=== PATIENT | male | born 1950 | race Caucasian/White ===

== ENCOUNTER 2016-08-16 09:15 | Inpatient (IN) | payer MEDICARE, OTHER ==
[~2016-08-16] VITALS: Ht 185.4 cm; Wt 92.2 kg
[2016-08-16] VITALS (7 sets, daily range): BP systolic 153–226; BP diastolic 72–91; PULSE 60–74; RESP 14–24; TEMP 97.5–98.1; O2SAT 93–97
[~2016-08-16 09:15] MED LIST: BACT800T5 PO; CLON0.1T PO; COLA100C3 PO; FERR65TA PO; FURO1TAB62 PO; HYDR-3583 PO; ISOS10TA3 PO; LABE200T2 PO; LANTUS2P SQ; LINA290C PO; LORA-474 PO; MIRA33504 PO; MULT1TAB84 PO; MYCO500 PO; NIFE1TAB85 PO; NOVOLOGP2 SQ; PRED5TAB PO; PREG25 PO; SODI650T PO; TACR1CAP PO; TRIMIX
--- NOTE | 2016-08-16 11:06 | PD ---
HPI Chief Complaint: Respiratory Symptoms Time Seen by Provider: 10:20 Travel History International Travel<30 days: No Contact w/Intl Traveler<30days: No Traveled to known affect area: No PFSH Past Medical History Hx Anticoagulant Therapy: No Arthritis: No Asthma: No Autoimmune Disease: No Blood Disorders: No Anxiety: Yes Depression: No Heart Rhythm Problems: No Cancer: No Cardiac Catheterization: Yes Cardiovascular Problems: Yes (CHF) High Cholesterol: No Chemotherapy: No Chest Pain: No Congestive Heart Failure: Yes (fluid overload) COPD: Yes Cerebrovascular Accident: No Diabetes: Yes Dialysis: Yes (M-W-F) Diminished Hearing: Yes ([place]) Endocrine: Yes Gastrointestinal Disorders: Yes (GERD, ) GERD: No Genitourinary: No Headaches: Yes Hepatitis: Yes (C CLEARED ) Hiatal Hernia: No Hypertension: Yes Immune Disorder: No Kidney Stones: No Musculoskeletal: Yes (ARTHRITIS, BACK PAIN) Neurologic: Yes (NEUROPATHY FEET, HANDS) Psychiatric: No (ANXIETY) Reproductive: No Respiratory: No Immunizations Current: Yes Migraines: No Radiation Therapy: No Renal Failure: Yes (kidney renal rejection ) Seizures: No Sickle Cell Disease: No Sleep Apnea: No Thyroid Disease: No Ulcer: No Tetanus Vaccination: < 5 Years Influenza Vaccination: Yes Past Surgical History Abdominal Surgery: No AICD: No Arteriovenous Shunt: Yes (L AV FISTULA) Body Medical Devices: RIGHT URETERAL STENT Cardiac Surgery: Yes (BILAT CAROTIDS) Ear Surgery: No Endocrine Surgery: No Eye Surgery: Yes Genitourinary Surgery: Yes (RIGHT RENAL TRANSPLANT, (R) NEPHROS./ URETERAL STENTS (MULTI)) Gynecologic Surgery: No Insulin Pump: No Joint Replacement: No Oral Surgery: No Pacemaker: No Thoracic Surgery: No Other Surgery: Yes (bilat cea right kidney july 2014) Social History Alcohol Use: No Tobacco Use: No Substance Use: No Allergies-Medications (Allergen,Severity, Reaction): Coded Allergies: No Known Allergies (Unverified , 08/16/16) Reported Meds & Prescriptions Reported Meds & Active Scripts Active Bactrim DS (Sulfamethoxazole-Trimethoprim) 800-160 Mg Tab 1 Tab PO BID Reported Novolog Inj (Insulin Aspart) 1,000 Unit/10 Ml Vial 0 SQ DIRECTED Sliding Scale as directed. Lantus Inj (Insulin Glargine) 1,000 Unit/10 Ml Vial 22 Units SQ HS Hydrocodone-Acetaminophen 10-325 mg Tab 1 Tab PO TID PRN Ativan (Lorazepam) 1 Mg Tab 3 Mg PO HS Lyrica (Pregabalin) 25 Mg Cap 25 Mg PO TID Miralax Powder (Polyethylene Glycol 3350 Powder) 17 Gm Powd 17 Gm PO DAILY Mix and dissolve one measuring cap-ful (17 grams) in water or juice. Linzess (Linaclotide) 290 Mcg Cap 290 Mcg PO DAILY PRN Colace (Docusate Sodium) 100 Mg Cap 100 Mg PO BID Lasix (Furosemide) 20 Mg Tab 20 Mg PO BID Procardia XL (Nifedipine) 30 Mg Tab 30 Mg PO HS Clonidine (Clonidine HCl) 0.1 Mg Tab 0.1 Mg PO DAILY Labetalol (Labetalol HCl) 200 Mg Tab 200 Mg PO BID Feosol (Ferrous Sulfate) 65 Mg Tab 45 Mg PO DAILY Multivitamin Adults (Multiple Vitamins W/ Minerals) 1 Tab 1 Tab PO DAILY Prednisone 5 Mg Tab 5 Mg PO DAILY Cellcept (Mycophenolate Mofetil) 500 Mg Tab 500 Mg PO BID Tacrolimus 1 Mg Cap 3 Mg PO Q12H Sodium Bicarbonate 650 Mg Tab 650 Mg PO BIDPC Isosorbide Mononitrate 10 Mg Tab 30 Mg PO DAILY Take 2 doses 7 hours apart. [Trimix] DIRECTED PRN Data Data Last Documented VS Vital Signs Date Time Temp Pulse Resp B/P Pulse Ox O2 Delivery O2 Flow Rate FiO2 08/16/16 10:11 16 97 Nasal Cannula 2 08/16/16 10:11 60 153/72 08/16/16 09:19 97.6 Binta Lou MD Aug 16, 2016 11:06
[2016-08-16] MEDS ORDERED: FUROSEMIDE 40 MG/4 ML VIAL IV PUSH ONE (11:30)
[2016-08-16 11:34] LABS: AUTOMATED NEUTROPHIL # 7.3 TH/MM3 (1.8-7.7); BASOPHIL % 0.2 % (0.0-2.0); EOSINOPHIL % 0.5 % (0.0-4.0); HEMATOCRIT 39.7 % (39.0-51.0); HEMO FLAGS DIFF FINAL; LYMPH % 7.3 % (9.0-44.0); LYMPHOCYTE # 0.6 TH/MM3 (1.0-4.8); MEAN CELL VOLUME 88.6 FL (80.0-100.0); MEAN CORPUSCULAR HEMOGLOBIN 28.6 PG (27.0-34.0); MEAN CORPUSCULAR HGB CONC 32.2 % (32.0-36.0); PLATELET COUNT 142 TH/MM3 (150-450); RED BLOOD COUNT 4.48 MIL/MM3 (4.50-5.90); WHITE BLOOD COUNT 8.6 TH/MM3 (4.0-11.0)
--- NOTE | 2016-08-16 11:34 | PD ---
HPI Chief Complaint: Respiratory Symptoms Time Seen by Provider: 11:28 Travel History International Travel<30 days: No Contact w/Intl Traveler<30days: No Traveled to known affect area: No History of Present Illness HPI 66-year-old male that presents to the ED for evaluation of shortness of breath and weight gain. Patient has a history of CHF, kidney transplant in [address] Henry for nephrology as well as Dr. Cabrera for cardiology. Per patient for the past 3-4 weeks she's been having more increased shortness of breath with exertion. Per patient he also has orthopnea and he feels that he is gaining weight. Per patient he checked his weight daily. He actually brings me a sheet where he has daily weights which show at least an increase of 5 kg in the past 3-4 days. Patient states that he's been compliant with his medications and cease even been using extra doses of Lasix to help with his symptoms but they do not seem to be helping. Patient came here because the shortness of breath became more severe today and he is having some chest discomfort as well that he's had for 3 days. Per patient he actually see Dr. Cabrera yesterday and he wanted to do a stress test on his heart next week. I asked the patient what he said about the weight gain in the CHF and he stated that apparently he prefers Dr. Hernandez to take care of the medications as patient does have kidney transplant. Patient states the chest pain it's worse with deep breaths. Patient denies any recent travel. Denies any other medical problems at this time. Per patient he does have swelling in his legs and some congestion and dry cough but per patient this is normal for one he gets fluid overloaded. Patient states that his pain in his chest is 6 out of 10. PFSH Past Medical History Hx Anticoagulant Therapy: No Arthritis: No Asthma: No Autoimmune Disease: No Blood Disorders: No Anxiety: Yes Depression: No Heart Rhythm Problems: No Cancer: No Cardiac Catheterization: Yes Cardiovascular Problems: Yes (CHF) High Cholesterol: No Chemotherapy: No Chest Pain: No Congestive Heart Failure: Yes (fluid overload) COPD: Yes Cerebrovascular Accident: No Diabetes: Yes Dialysis: Yes (M-W-F) Diminished Hearing: [place]) Endocrine: Yes Gastrointestinal Disorders: Yes (GERD, ) GERD: No Genitourinary: No Headaches: Yes Hepatitis: Yes (C CLEARED ) Hiatal Hernia: No Hypertension: Yes Immune Disorder: No Kidney Stones: No Musculoskeletal: Yes (ARTHRITIS, BACK PAIN) Neurologic: Yes (NEUROPATHY FEET, HANDS) Psychiatric: No (ANXIETY) Reproductive: No Respiratory: No Immunizations Current: Yes Migraines: No Radiation Therapy: No Renal Failure: Yes (kidney renal rejection ) Seizures: No Sickle Cell Disease: No Sleep Apnea: No Thyroid Disease: No Ulcer: No Tetanus Vaccination: < 5 Years Influenza Vaccination: Yes Past Surgical History Abdominal Surgery: No AICD: No Arteriovenous Shunt: Yes (L AV FISTULA) Body Medical Devices: RIGHT URETERAL STENT Cardiac Surgery: Yes (BILAT CAROTIDS) Ear Surgery: No Endocrine Surgery: No Eye Surgery: Yes Genitourinary Surgery: Yes (RIGHT RENAL TRANSPLANT, (R) NEPHROS./ URETERAL STENTS (MULTI)) Gynecologic Surgery: No Insulin Pump: No Joint Replacement: No Oral Surgery: No Pacemaker: No Thoracic Surgery: No Other Surgery: Yes (bilat cea right kidney july 2014) Social History Alcohol Use: No Tobacco Use: No Substance Use: No Allergies-Medications (Allergen,Severity, Reaction): Coded Allergies: No Known Allergies (Unverified , 08/16/16) Reported Meds & Prescriptions Reported Meds & Active Scripts Active Bactrim DS (Sulfamethoxazole-Trimethoprim) 800-160 Mg Tab 1 Tab PO BID Reported Novolog Inj (Insulin Aspart) 1,000 Unit/10 Ml Vial 0 SQ DIRECTED Sliding Scale as directed. Lantus Inj (Insulin Glargine) 1,000 Unit/10 Ml Vial 22 Units SQ HS Hydrocodone-Acetaminophen 10-325 mg Tab 1 Tab PO TID PRN Ativan (Lorazepam) 1 Mg Tab 3 Mg PO HS Lyrica (Pregabalin) 25 Mg Cap 25 Mg PO TID Miralax Powder (Polyethylene Glycol 3350 Powder) 17 Gm Powd 17 Gm PO DAILY Mix and dissolve one measuring cap-ful (17 grams) in water or juice. Linzess (Linaclotide) 290 Mcg Cap 290 Mcg PO DAILY PRN Colace (Docusate Sodium) 100 Mg Cap 100 Mg PO BID Lasix (Furosemide) 20 Mg Tab 20 Mg PO BID Procardia XL (Nifedipine) 30 Mg Tab 30 Mg PO HS Clonidine (Clonidine HCl) 0.1 Mg Tab 0.1 Mg PO DAILY Labetalol (Labetalol HCl) 200 Mg Tab 200 Mg PO BID Feosol (Ferrous Sulfate) 65 Mg Tab 45 Mg PO DAILY Multivitamin Adults (Multiple Vitamins W/ Minerals) 1 Tab 1 Tab PO DAILY Prednisone 5 Mg Tab 5 Mg PO DAILY Cellcept (Mycophenolate Mofetil) 500 Mg Tab 500 Mg PO BID Tacrolimus 1 Mg Cap 3 Mg PO Q12H Sodium Bicarbonate 650 Mg Tab 650 Mg PO BIDPC Isosorbide Mononitrate 10 Mg Tab 30 Mg PO DAILY Take 2 doses 7 hours apart. [Trimix] DIRECTED PRN Review of Systems Except as stated in HPI: all other systems reviewed are Neg Physical Exam Narrative GENERAL: SKIN: Warm and dry. HEAD: Atraumatic. Normocephalic. EYES: Pupils equal and round. No scleral icterus. No injection or drainage. ENT: No nasal bleeding or discharge. Mucous membranes pink and moist. Tongue is midline. No uvula deviation. NECK: Trachea midline. No JVD. CARDIOVASCULAR: Regular rate and rhythm. No murmurs, S3, S4. RESPIRATORY: No accessory muscle use. Mild rales heard in the lower lung hess. Breath sounds equal bilaterally. GASTROINTESTINAL: Abdomen soft, nontender, nondistended. Hepatic and splenic margins not palpable. MUSCULOSKELETAL: Extremities without clubbing, cyanosis, or edema. No obvious deformities. Full range of motion of the upper and lower extremities. Patient has 1+ pitting edema on the lower extremities. NEUROLOGICAL: Awake and alert. No obvious cranial nerve deficits. Motor grossly within normal limits. Five out of 5 muscle strength in the arms and legs. Normal speech. PSYCHIATRIC: Appropriate mood and affect; insight and judgment normal. Data Data Last Documented VS Vital Signs Date Time Temp Pulse Resp B/P Pulse Ox O2 Delivery O2 Flow Rate FiO2 08/16/16 11:28 14 97 Nasal Cannula 2 08/16/16 11:27 65 153/72 08/16/16 09:19 97.6 Orders Electrocardiogram (08/16/16 11:14) Complete Blood Count With Diff (08/16/16 11:14) Comprehensive Metabolic Panel (08/16/16 11:14) Ckmb (Isoenzyme) Profile (08/16/16 11:14) Troponin I (08/16/16 11:14) B-Type Natriuretic Peptide (08/16/16 11:14) Prothrombin Time / Inr (Pt) (08/16/16 11:14) Act Partial Throm Time (Ptt) (08/16/16 11:14) Urinalysis - C+S If Indicated (08/16/16 11:14) Magnesium (Mg) (08/16/16 11:14) Chest, Single Ap (08/16/16 11:14) Iv Access Insert/Monitor (08/16/16 11:14) Ecg Monitoring (08/16/16 11:14) Oximetry (08/16/16 11:14) Furosemide Inj (Lasix Inj) (08/16/16 11:30) Albuterol Neb (Albuterol Neb) (08/16/16 11:45) CKMB (08/16/16 11:00) CKMB% (08/16/16 11:00) Diet Diabetic (08/16/16 Lunch) Admit Order (Ed Use Only) (08/16/16 14:16) Labs Laboratory Tests Test 08/16/16 11:00 White Blood Count 8.6 TH/MM3 Red Blood Count 4.48 MIL/MM3 Hemoglobin 12.8 GM/DL Hematocrit 39.7 % Mean Corpuscular Volume 88.6 FL Mean Corpuscular Hemoglobin 28.6 PG Mean Corpuscular Hemoglobin 32.2 % Concent Red Cell Distribution Width 17.0 % Platelet Count 142 TH/MM3 Mean Platelet Volume 9.5 FL Neutrophils (%) (Auto) 84.0 % Lymphocytes (%) (Auto) 7.3 % Monocytes (%) (Auto) 8.0 % Eosinophils (%) (Auto) 0.5 % Basophils (%) (Auto) 0.2 % Neutrophils # (Auto) 7.3 TH/MM3 Lymphocytes # (Auto) 0.6 TH/MM3 Monocytes # (Auto) 0.7 TH/MM3 Eosinophils # (Auto) 0.0 TH/MM3 Basophils # (Auto) 0.0 TH/MM3 CBC Comment DIFF FINAL Differential Comment Prothrombin Time 12.8 SEC Prothromb Time International 1.2 RATIO Ratio Activated Partial 30.1 SEC Thromboplast Time Urine Color YELLOW Urine Turbidity HAZY Urine pH 5.0 Urine Specific [place] 1.016 Urine Protein TRACE mg/dL Urine Glucose (UA) NEG mg/dL Urine Ketones NEG mg/dL Urine Occult Blood NEG Urine Nitrite NEG Urine Bilirubin NEG Urine Urobilinogen LESS THAN 2.0 MG/DL Urine Leukocyte Esterase NEG Urine RBC 1 /hpf Urine WBC 2 /hpf Urine Uric Acid Crystals OCC /hpf Microscopic Urinalysis Comment CULT NOT INDICATED Sodium Level 140 MEQ/L Potassium Level 5.2 MEQ/L Chloride Level 110 MEQ/L Carbon Dioxide Level 20.1 MEQ/L Anion Gap 10 MEQ/L Blood Urea Nitrogen 57 MG/DL Creatinine 2.56 MG/DL Estimat Glomerular Filtration 25 ML/MIN Rate Random Glucose 106 MG/DL Calcium Level 8.6 MG/DL Magnesium Level 2.2 MG/DL Total Bilirubin 1.3 MG/DL Aspartate Amino Transf 18 U/L (AST/SGOT) Alanine Aminotransferase 42 U/L (ALT/SGPT) Alkaline Phosphatase 95 U/L Total Creatine Kinase 138 U/L Creatine Kinase MB 7.8 NG/ML Troponin I 0.02 NG/ML B-Type Natriuretic Peptide 1599 PG/ML Total Protein 6.4 GM/DL Albumin 3.5 GM/DL [facility] Medical Decision Making Medical Screen Exam Complete: Yes Emergency Medical Condition: Yes Medical Record Reviewed: Yes Interpretation(s) CBC & BMP Diagram 08/16/16 11:00 BNP of 1500s troponin and CKMB negative EKG shows sinus rhythm with no sign of acute ischemia or arrythmia. Last Impressions Chest X-Ray 08/16/16 1114 Signed Impressions: Service Date/Time: August 11:58 - CONCLUSION: Changes most characteristic of congestive heart failure with pulmonary edema and small effusions now noted. Robin Reid MD Differential Diagnosis CHF exacerbation versus fluid overload versus pulmonary edema versus kidney transplant versus kidney failure versus ACS Narrative Course 66-year-old male that presents to the ED for evaluation of likely CHF exacerbation. Patient was properly examined and was found to have signs and symptoms very consistent with fluid overload and CHF exacerbation. At this time I recommend labs and imaging. Patient was given breathing treatment as well as diuretic IV. Likely admission. This was discussed with the patient and family members who are both in agreement with plan. Labs and imaging showed signs of acute CHF exacerbation. At this time and do recommend admission secondary to patient's symptoms. Patient is agreement with this plan. Case was discussed with my attending Dr. Lou who agrees to admission and treatment plan. Case was discussed with Dr. Tenorio for [facility] service who agrees to admission. Procedures EKG Prior to Arrival: No Diagnosis Primary Impression: CHF exacerbation Qualified Code: I50.9 - Acute on chronic congestive heart failure, unspecified congestive heart failure type Additional Impression: Pulmonary edema Qualified Code: J81.0 - Acute pulmonary edema Admitting Information Admitting Physician Requests: Observation Mark Blank Aug 16, 2016 11:34
[2016-08-16 11:40] LABS: BLOOD, URINE NEG (NEG); COMMENT (UR) CULT NOT INDICATED; CULTURE IF INDICATED CULT NOT INDICATED; GLUCOSE,URINE NEG (NEG); KETONE, URINE NEG (NEG); NITRITE,URINE NEG (NEG); URIC ACID CRYSTALS, URINE OCC /hpf; URINE COLOR YELLOW (YELLW/STRAW)
[2016-08-16 11:41] LABS: APTT (PATIENT) 30.1 SEC (24.3-30.1); INTERNATIONAL NORMALIZED RATIO 1.2 RATIO; PROTHROMBIN TIME - PATIENT 12.8 SEC (9.8-11.6)
[2016-08-16] MEDS ORDERED: RESP: ALBUTEROL 2.5 MG/3 ML NEB (SCH) INH ONE (11:45)
[2016-08-16 11:55] LABS: ALT (GPT) 42 U/L (12-78); ANION GAP 10 MEQ/L (5-15); AST (GOT) 18 U/L (15-37); BICARBONATE 20.1 MEQ/L (21.0-32.0); BLOOD UREA NITROGEN 57 MG/DL (7-18); CHLORIDE 110 MEQ/L (98-107); GLOMERULAR FILTRATION RATE 25 ML/MIN (>89); MAGNESIUM 2.2 MG/DL (1.5-2.5); POTASSIUM 5.2 MEQ/L (3.5-5.1); SODIUM (NA) 140 MEQ/L (136-145)
[2016-08-16 11:59] LABS: ALKALINE PHOSPHATASE 95 U/L (45-117); CREATINE KINASE 138 U/L (39-308); TOTAL BILIRUBIN ADULT 1.3 MG/DL (0.2-1.0)
[2016-08-16 12:11] LABS: CKMB 7.8 NG/ML (0.5-3.6)
--- NOTE | 2016-08-16 13:02 | RADRPT ---
EXAM DATE/TIME: 08/16/2016 11:58 [facility] COMPARISON: CHEST SINGLE AP, April 08, 2016, 6:29. INDICATIONS : Shortness of breath, chest pain. MEDICAL HISTORY : Hypertension. Chronic obstructive pulmonary disease. Diabetes mellitus type II. Congestive heart failure. SURGICAL HISTORY : None. ENCOUNTER: Initial ACUITY: 3 weeks PAIN SCORE: 3/10 LOCATION: Left chest FINDINGS: A single AP erect portable view of the chest was obtained and again demonstrates perihilar and bibasa l are opacities greatest in the lower lobes. The heart size is at the upper limits of normal. There i s blunting of both costophrenic angles now noted consistent with small effusions left greater than ri ght. Mild average chronic calcifications are present in the aorta. CONCLUSION: Changes most characteristic of congestive heart failure with pulmonary edema and smal l effusions now noted. Robin Reid MD on August 16, 2016 at 12:58 Board Certified Radiologist. This report was verified electronically.
--- NOTE | 2016-08-16 14:50 | EKG ---
Date Performed: 08/16/2016 Time Performed: 10:34:37 PTAGE: 66 years EKG: Sinus rhythm POSSIBLE LEFT ATRIAL ENLARGEMENT BORDERLINE LEFT AXIS DEVIATION ST/T-WAVE ABNORMALITY, CONSIDER LATE RAL ISCHEMIA ABNORMAL ECG NO PREVIOUS TRACING DOCTOR: Elijah Madden Interpretating Date/Time 08/16/2016 14:49:58
[2016-08-16] MEDS ORDERED: TRIMIX IC (15:14)
[2016-08-16] MEDS ORDERED: ISOS30TA3 PO (15:14)
[2016-08-16] MEDS ORDERED: SODIUM CHLORIDE 0.9% FLUSH 10 ML FLUSH IV FLUSH PRN (15:15)
[2016-08-16] MEDS ORDERED: CARB45TA PO ×2 (15:19→15:20)
[2016-08-16] MEDS: HEPARIN SODIUM - SQ 10,000 UNITS/ML VIAL SQ SCH (17:03)
[2016-08-16] MEDS ORDERED: POLYETHYLENE GLYCOL 17 GM PKG PO PRN (17:45)
[2016-08-16] MEDS ORDERED: TACROLIMUS 1 MG CAP PO SCH (18:00)
[2016-08-16] MEDS: SODIUM BICARBONATE 650 MG TAB PO SCH (18:23)
[2016-08-16] MEDS: TACROLIMUS 0.5 MG CAP PO SCH (18:23)
[2016-08-16] MEDS: PREGABALIN 25 MG CAP PO SCH (18:24)
[2016-08-16] MEDS: MYCOPHENOLATE MOFETIL 500 MG TAB PO SCH (18:24)
[2016-08-16] MEDS: cloNIDine HCL 0.1 MG TAB PO SCH (18:24)
[2016-08-16] MEDS: ACETAMINOPHEN/HYDROcodone 325 MG/10 MG TAB PO PRN (18:24)
--- NOTE | 2016-08-16 19:56 | HHI.HP ---
cc: Sujatha Esquivel MD HPI Service [facility] Hospitalists Primary Care Physician Kristen Gordon Admission Diagnosis acute CHF exacerbation Diagnoses: Chief Complaint: SOB Travel History International Travel<30 Days: No Contact w/Intl Traveler <30 Da: No Traveled to Known Affected Are: No History of Present Illness This is a 66-year-old male with past medical history significant for chronic kidney disease status post kidney transplant, congestive heart failure, COPD and as stated below who presents to [facility] for evaluation of shortness of breath and weight gain. The patient had a kidney transplant in [address] Hernandez from nephrology and Dr. Cabrera for cardiology. Patient complains of worsening dyspnea on exertion for the past 3- 4 weeks. Patient also complains of orthopnea and he feels that he is gaining weight. The patient states he checks his weight daily and which shows at least an increase of 5 kg in the past 3-4 days. Patient states he has been compliant with his medications and has being using extra doses of IV Lasix to help with his symptoms but they do not seem to be helping. Patient came to the emergency department because of shortness of breath got worst and he was having some chest discomfort as well as to same he's had for the past 3 days. The patient actually is solid Dr. Jax antonio yesterday and he wanted the patient to have a stress test next week. Patient complain of chest pain in the emergency department however he did not complain of chest pain to me. The patient states he has been having a mild cough, denies fevers or chills, denies dysuria, denies diarrhea. Patient also states that he has had some leg edema and increase in abdominal girth. Patient also states that for the past week she had developed a tender cyst on the left foot, which was drained on 08/10/16 at the [facility] outpatient clinic and pass was obtained from it. Patient was started on oral Bactrim to treat this infection. Review of Systems As per history of present illness, other systems reviewed by me and negative Past Family Social History Past Medical History COPD Congestive heart failure End-stage renal disease status post transplantation Anxiety Hepatitis C Diabetes Dyslipidemia Neuropathy Arthritis Past Surgical History Renal transplant on the right Ureteral stents Left AV fistula Bilateral carotid surgery Reported Medications Reported Meds & Active Scripts Bactrim DS (Sulfamethoxazole-Trimethoprim) 800-160 Mg Tab 1 Tab PO BID Feosol (Iron Carbonyl) 45 Mg Tab 45 Mg PO DAILY Isosorbide Mononitrate ER (Isosorbide Mononitrate) 30 Mg Cherise 30 Mg PO DAILY [Trimix Inj] 1 Injection IC INTERMITTENT PRN Novolog Inj (Insulin Aspart) 1,000 Unit/10 Ml Vial 0 SQ ACHS AND 3AM Sliding Scale as directed. Lantus Inj (Insulin Glargine) 1,000 Unit/10 Ml Vial 22 Units SQ HS Hydrocodone-Acetaminophen 10-325 mg Tab 1 Tab PO TID PRN Ativan (Lorazepam) 1 Mg Tab 3 Mg PO HS Lyrica (Pregabalin) 25 Mg Cap 25 Mg PO TID Miralax Powder (Polyethylene Glycol 3350 Powder) 17 Gm Powd 17 Gm PO DAILY PRN Mix and dissolve one measuring cap-ful (17 grams) in water or juice. Linzess (Linaclotide) 290 Mcg Cap 290 Mcg PO DAILY PRN Colace (Docusate Sodium) 100 Mg Cap 100 Mg PO BID Lasix (Furosemide) 20 Mg Tab 20 Mg PO BID Procardia XL (Nifedipine) 30 Mg Tab 30 Mg PO HS Clonidine (Clonidine HCl) 0.1 Mg Tab 0.1 Mg PO DAILY Labetalol (Labetalol HCl) 200 Mg Tab 200 Mg PO BID Multivitamin Adults (Multiple Vitamins W/ Minerals) 1 Tab 1 Tab PO DAILY Prednisone 5 Mg Tab 5 Mg PO DAILY Cellcept (Mycophenolate Mofetil) 500 Mg Tab 500 Mg PO BID Tacrolimus 1 Mg Cap 3 Mg PO Q12H Sodium Bicarbonate 650 Mg Tab 650 Mg PO BIDPC Allergies: Coded Allergies: No Known Allergies (Unverified , 08/16/16) Active Ordered Medications Current Medications Medications (Trade) Dose Ordered Sig/Rai Route Start Time Stop Time Status Last Admin (NS Flush) 2 ml UNSCH PRN IV FLUSH 08/16/16 15:15 (NS Flush) 2 ml BID IV FLUSH 08/16/16 21:00 (Heparin Inj) 5,000 units Q8H SQ 08/16/16 16:00 08/16/16 17:03 (Catapres) 0.1 mg DAILY PO 08/16/16 17:45 08/16/16 18:24 (Colace) 100 mg BID PO 08/16/16 21:00 ([place] 10-325 Mg) 1 tab TID PRN PO 08/16/16 17:45 08/16/16 18:24 (Levemir Inj) 22 units HS SQ 08/16/16 21:00 (Imdur) 30 mg DAILY PO 08/17/16 09:00 (Trandate) 200 mg BID PO 08/16/16 21:00 (Ativan) 3 mg HS PO 08/16/16 21:00 (Theragran M Tab) 1 tab DAILY PO 08/17/16 09:00 (Cellcept) 500 mg BID@,18 PO 08/16/16 18:00 08/16/16 18:24 (Procardia Xl) 30 mg HS PO 08/16/16 21:00 (Miralax) 17 gm DAILY PRN PO 08/16/16 17:45 (Deltasone) 5 mg DAILY PO 08/17/16 09:00 (Lyrica) 25 mg TID PO 08/16/16 18:00 08/16/16 18:24 (Sodium Bicarbonate) 650 mg BIDPC PO 08/16/16 18:00 08/16/16 18:23 (Ferrous Sulfate) 325 mg DAILY PO 08/17/16 09:00 Patient Own Medication PT OWN MED: Linaclot... DAILY PRN PO 08/16/16 17:45 (Prograf) 3 mg DAILY@,18 PO 08/16/16 18:15 08/16/16 18:23 Family History Positive for diabetes and heart disease. Social History Patient is sent from a smoker. He smoked for 35 years and quit 30 years ago. Denies current alcohol intake. Physical Exam Vital Signs Vital Signs Date Time Temp Pulse Resp B/P Pulse Ox O2 Delivery O2 Flow Rate FiO2 08/16/16 17:00 97.5 66 22 195/90 93 08/16/16 15:33 70 14 98 08/16/16 11:28 14 97 Nasal Cannula 2 08/16/16 11:27 65 14 153/72 95 Nasal Cannula 2 08/16/16 10:11 16 97 Nasal Cannula 2 08/16/16 10:11 60 14 153/72 96 Nasal Cannula 2 08/16/16 09:19 97.6 68 24 180/79 93 Room Air Physical Exam GENERAL: This is a well-nourished, well-developed patient, in no apparent distress. SKIN: No rashes, ecchymoses or lesions. Cool and dry. HEAD: Atraumatic. Normocephalic. No temporal or scalp tenderness. EYES: Pupils equal round and reactive. Extraocular motions intact. No scleral icterus. No injection or drainage. ENT: Nose without bleeding, purulent drainage or septal hematoma. Throat without erythema, tonsillar hypertrophy or exudate. Uvula midline. Airway patent. NECK: Trachea midline. No JVD or lymphadenopathy. Supple, nontender, no meningeal signs. CARDIOVASCULAR: Regular rate and rhythm without murmurs, gallops, or rubs. RESPIRATORY: Clear to auscultation. Breath sounds equal bilaterally. No wheezes , rales, or rhonchi. GASTROINTESTINAL: Abdomen soft, non-tender, nondistended. No hepato-splenomegaly , or palpable masses. No guarding. MUSCULOSKELETAL: Extremities without clubbing, cyanosis, or edema. No joint tenderness, effusion, or edema noted. No calf tenderness. Negative Homans sign bilaterally. NEUROLOGICAL: Awake and alert. Cranial nerves II through XII intact. Motor and sensory grossly within normal limits. Five out of 5 muscle strength in all muscle groups. Normal speech. Laboratory Laboratory Tests Test 08/16/16 08/16/16 11:00 17:13 White Blood Count 8.6 Red Blood Count 4.48 Hemoglobin 12.8 Hematocrit 39.7 Mean Corpuscular Volume 88.6 Mean Corpuscular Hemoglobin 28.6 Mean Corpuscular Hemoglobin 32.2 Concent Red Cell Distribution Width 17.0 Platelet Count 142 Mean Platelet Volume 9.5 Neutrophils (%) (Auto) 84.0 Lymphocytes (%) (Auto) 7.3 Monocytes (%) (Auto) 8.0 Eosinophils (%) (Auto) 0.5 Basophils (%) (Auto) 0.2 Neutrophils # (Auto) 7.3 Lymphocytes # (Auto) 0.6 Monocytes # (Auto) 0.7 Eosinophils # (Auto) 0.0 Basophils # (Auto) 0.0 CBC Comment DIFF FINAL Differential Comment Prothrombin Time 12.8 Prothromb Time International 1.2 Ratio Activated Partial 30.1 Thromboplast Time Urine Color YELLOW Urine Turbidity HAZY Urine pH 5.0 Urine Specific [place] 1.016 Urine Protein TRACE Urine Glucose (UA) NEG Urine Ketones NEG Urine Occult Blood NEG Urine Nitrite NEG Urine Bilirubin NEG Urine Urobilinogen LESS THAN 2.0 Urine Leukocyte Esterase NEG Urine RBC 1 Urine WBC 2 Urine Uric Acid Crystals OCC Microscopic Urinalysis Comment CULT NOT INDICATED Sodium Level 140 Potassium Level 5.2 Chloride Level 110 Carbon Dioxide Level 20.1 Anion Gap 10 Blood Urea Nitrogen 57 Creatinine 2.56 Estimat Glomerular Filtration 25 Rate Random Glucose 106 Calcium Level 8.6 Magnesium Level 2.2 Total Bilirubin 1.3 Aspartate Amino Transf 18 (AST/SGOT) Alanine Aminotransferase 42 (ALT/SGPT) Alkaline Phosphatase 95 Total Creatine Kinase 138 Creatine Kinase MB 7.8 Troponin I 0.02 0.02 B-Type Natriuretic Peptide 1599 Total Protein 6.4 Albumin 3.5 Result Diagram: 08/16/16 1100 08/16/16 1100 Imaging Last Impressions Chest X-Ray 08/16/16 1114 Signed Impressions: Service Date/Time: August 11:58 - CONCLUSION: Changes most characteristic of congestive heart failure with pulmonary edema and small effusions now noted. Robin Reid MD Assessment and Plan Problem List: (1) Acute on chronic diastolic (congestive) heart failure ICD Code: I50.33 Status: Acute Plan: Placed the patient under observation, the patient status post IV Lasix in the emergency department with good response Last echocardiogram obtained on 04/10/16 showed an EF of 55-60% I will consult cardiology - Dr Cabrera I will hold diuretics for now and let nephrology manage them. (2) Hypertension ICD Code: I10 Status: Chronic Plan: Patient seems to have a very elevated and uncontrolled systolic blood pressure with a blood pressure of into the 190s. I will continue home antihypertensive medications which include Levatol, clonidine, nifedipine. Less than clonidine when necessary and add Cardura at bedtime. (3) Hyperkalemia ICD Code: E87.5 Status: Acute Plan: Likely due to decreased potassium excretion. Potassium 5.2, mild hyperkalemia. Continue to monitor BMP. IV diuretics should help lowering the potassium. (4) DM (diabetes mellitus) ICD Code: E11.9 Status: Chronic Plan: Continue home medications which include SSI with insulin NovoLog and long -acting insulin Lantus. Monitor Accu-Cheks. (5) Kidney transplanted ICD Code: Z94.0 Status: Chronic Plan: Continue immunosuppressive therapy with tacrolimus and mycophenolate. (6) ESRD (end stage renal disease) ICD Code: N18.6 Status: Chronic Plan: Status post kidney transplant. As above. (7) Abscess of left foot ICD Code: L02.612 Status: Acute Plan: Patient had a drainage of the left foot abscess on 08/10/16 which wound culture grew MSSA. Continue by mouth Bactrim. I will order podiatry consultation. Assessment and Plan This is a 66-year-old male who presents to [facility] with weight gain and shortness of breath as well as edema. Code Status Full code Discussed Condition With Patient Problem Qualifiers (1) DM (diabetes mellitus): Santos Barillas MD Aug 16, 2016 19:56
[2016-08-16] MEDS: SULFAMETHOXAZOLE-TRIMETHOPRIM DS 800-160 MG TAB PO SCH (20:57)
[2016-08-16] MEDS: LORazepam 1 MG TAB PO SCH (20:58)
[2016-08-16] MEDS: LABETALOL HCL 200 MG TAB PO SCH (20:58)
[2016-08-16] MEDS: DOCUSATE SODIUM 100 MG CAP PO SCH (20:59)
[2016-08-16] MEDS: INSULIN DETEMIR 100 UNITS/ML VIAL SQ SCH (20:59)
[2016-08-16] MEDS ORDERED: NIFEdipine 30 MG SUSTAINED RELEASE TAB PO SCH (21:00)
[2016-08-16] MEDS: SODIUM CHLORIDE 0.9% FLUSH 10 ML FLUSH IV FLUSH SCH (21:02)
[2016-08-16 22:53] LABS: CREATINE KINASE 138 U/L (39-308)
[2016-08-16 23:06] LABS: CKMB 6.4 NG/ML (0.5-3.6)
[2016-08-17] VITALS (8 sets, daily range): BP systolic 159–191; BP diastolic 67–86; PULSE 63–75; RESP 16–22; TEMP 97.1–98.5; O2SAT 90–98
[2016-08-17] MEDS: HEPARIN SODIUM - SQ 10,000 UNITS/ML VIAL SQ SCH ×3 (01:22→15:07)
[2016-08-17] MEDS: ACETAMINOPHEN/HYDROcodone 325 MG/10 MG TAB PO PRN ×2 (02:35→15:07)
--- NOTE | 2016-08-17 04:57 | HHI.PR ---
Blank section for building Notified by RN that patient received 22 units of Levemir 08/16/16 blood glucose this AM 54, patient given juice and glucose came up to 116 Levemir placed on hold and accuchecks ACHS with low dose SSI coverage ordered Noelle Aguilar Aug 17, 2016 04:57
[2016-08-17] MEDS ORDERED: DEXTROSE 50% IN WATER 50 ML VIAL(D50) IV PUSH PRN (05:00)
[2016-08-17] MEDS ORDERED: GLUCAGON 1 MG/ML VIAL OTHER PRN (05:00)
[2016-08-17] MEDS: MYCOPHENOLATE MOFETIL 500 MG TAB PO SCH ×2 (05:57→18:16)
[2016-08-17] MEDS: TACROLIMUS 0.5 MG CAP PO SCH ×2 (05:57→18:16)
[2016-08-17] MEDS: INSULIN ASPART SUPPLEMENTAL SCALE SQ SCH ×4 (06:00→21:00)
[2016-08-17 07:59] LABS: INTERNATIONAL NORMALIZED RATIO 1.1 RATIO; PROTHROMBIN TIME - PATIENT 12.6 SEC (9.8-11.6)
[2016-08-17 08:19] LABS: ALKALINE PHOSPHATASE 92 U/L (45-117); ALT (GPT) 35 U/L (12-78); ANION GAP 7 MEQ/L (5-15); AST (GOT) 13 U/L (15-37); BICARBONATE 22.9 MEQ/L (21.0-32.0); BLOOD UREA NITROGEN 62 MG/DL (7-18); CHLORIDE 107 MEQ/L (98-107); GLOMERULAR FILTRATION RATE 22 ML/MIN (>89); POTASSIUM 4.8 MEQ/L (3.5-5.1); SODIUM (NA) 137 MEQ/L (136-145); TOTAL BILIRUBIN ADULT 1.4 MG/DL (0.2-1.0)
[2016-08-17] MEDS: SODIUM BICARBONATE 650 MG TAB PO SCH ×3 (08:43→18:16)
[2016-08-17] MEDS: DOCUSATE SODIUM 100 MG CAP PO SCH ×2 (08:44→21:16)
[2016-08-17] MEDS: cloNIDine HCL 0.1 MG TAB PO SCH (08:44)
[2016-08-17] MEDS: SULFAMETHOXAZOLE-TRIMETHOPRIM DS 800-160 MG TAB PO SCH ×2 (08:44→21:16)
[2016-08-17] MEDS: FERROUS SULFATE 325 MG (65 MG ELEMENTAL IRON) TAB PO SCH (08:44)
[2016-08-17] MEDS: MULTIVITAMINS/MINERALS THERAPEUTIC TAB PO SCH (08:44)
[2016-08-17] MEDS: ISOSORBIDE MONONITRATE 30 MG TAB PO SCH (08:44)
[2016-08-17] MEDS: PREGABALIN 25 MG CAP PO SCH ×3 (08:44→18:16)
[2016-08-17] MEDS: SODIUM CHLORIDE 0.9% FLUSH 10 ML FLUSH IV FLUSH SCH ×2 (08:45→21:17)
[2016-08-17] MEDS: LABETALOL HCL 200 MG TAB PO SCH ×2 (08:45→21:16)
[2016-08-17] MEDS: predniSONE 5 MG TAB PO SCH (08:52)
[2016-08-17] MEDS ORDERED: FUROSEMIDE 40 MG/4 ML VIAL IV PUSH SCH (09:00)
--- NOTE | 2016-08-17 11:42 | PD.CONS ---
HPI Service Nephrology Consult Requested By Dr. Tenorio Reason for Consult Status post kidney transplant Primary Care Physician Kristen Gordon History of Present Illness Patient is a 66-year-old male with history of diabetes, hypertension, ESRD status post kidney transplant in July 2014, his postoperative course was complicated by obstructive uropathy and he had stents, percutaneous nephrostomy and eventually kidney functions improved, he then had to reactivation of hepatitis C and this was treated with medications, he has developed left foot ulcer and seen a hub lead, this admission he complained of increasing weight gain and shortness of breath and was diuresed his baseline creatinine is around 2.3 range and now is around 2.9. He has been maintained on prednisone 5 mg a day, tacrolimus 3 mg every 12 hourly and CellCept 500 twice a day. Review of Systems Constitutional: COMPLAINS OF: Fatigue Cardiovascular: COMPLAINS OF: Lower Extremity Edema Musculoskeletal: COMPLAINS OF: Joint pain, Stiffness Integumentary: COMPLAINS OF: Rash Neurologic: COMPLAINS OF: Abnormal gait Past Family Social History Allergies: Coded Allergies: No Known Allergies (Unverified , 08/16/16) Past Medical History Diabetes Hypertension ESRD Kidney transplant Hepatitis C Neuropathy GERD Dysphagia Sam's esophagus Past Surgical History Left AV fistula Kidney transplant Bilateral carotid Transplant ureter stent placement and removal Reported Medications Reported Meds & Active Scripts Active Bactrim DS (Sulfamethoxazole-Trimethoprim) 800-160 Mg Tab 1 Tab PO BID Reported Feosol (Iron Carbonyl) 45 Mg Tab 45 Mg PO DAILY Isosorbide Mononitrate ER (Isosorbide Mononitrate) 30 Mg Cherise 30 Mg PO DAILY [Trimix Inj] 1 Injection IC INTERMITTENT PRN Novolog Inj (Insulin Aspart) 1,000 Unit/10 Ml Vial 0 SQ ACHS AND 3AM Sliding Scale as directed. Lantus Inj (Insulin Glargine) 1,000 Unit/10 Ml Vial 22 Units SQ HS Hydrocodone-Acetaminophen 10-325 mg Tab 1 Tab PO TID PRN Ativan (Lorazepam) 1 Mg Tab 3 Mg PO HS Lyrica (Pregabalin) 25 Mg Cap 25 Mg PO TID Miralax Powder (Polyethylene Glycol 3350 Powder) 17 Gm Powd 17 Gm PO DAILY PRN Mix and dissolve one measuring cap-ful (17 grams) in water or juice. Linzess (Linaclotide) 290 Mcg Cap 290 Mcg PO DAILY PRN Colace (Docusate Sodium) 100 Mg Cap 100 Mg PO BID Lasix (Furosemide) 20 Mg Tab 20 Mg PO BID Procardia XL (Nifedipine) 30 Mg Tab 30 Mg PO HS Clonidine (Clonidine HCl) 0.1 Mg Tab 0.1 Mg PO DAILY Labetalol (Labetalol HCl) 200 Mg Tab 200 Mg PO BID Multivitamin Adults (Multiple Vitamins W/ Minerals) 1 Tab 1 Tab PO DAILY Prednisone 5 Mg Tab 5 Mg PO DAILY Cellcept (Mycophenolate Mofetil) 500 Mg Tab 500 Mg PO BID Tacrolimus 1 Mg Cap 3 Mg PO Q12H Sodium Bicarbonate 650 Mg Tab 650 Mg PO BIDPC Active Ordered Medications Current Medications Medications (Trade) Dose Ordered Sig/Rai Route Start Time Stop Time Status Last Admin (NS Flush) 2 ml UNSCH PRN IV FLUSH 08/16/16 15:15 (NS Flush) 2 ml BID IV FLUSH 08/16/16 21:00 08/17/16 08:45 (Heparin Inj) 5,000 units Q8H SQ 08/16/16 16:00 08/17/16 08:44 (Catapres) 0.1 mg DAILY PO 08/16/16 17:45 08/17/16 08:44 (Colace) 100 mg BID PO 08/16/16 21:00 08/17/16 08:44 ([place] 10-325 Mg) 1 tab TID PRN PO 08/16/16 17:45 08/17/16 02:35 (Levemir Inj) 22 units HS SQ 08/16/16 21:00 Hold 08/16/16 20:59 (Imdur) 30 mg DAILY PO 08/17/16 09:00 08/17/16 08:44 (Trandate) 200 mg BID PO 08/16/16 21:00 08/17/16 08:45 (Ativan) 3 mg HS PO 08/16/16 21:00 08/16/16 20:58 (Theragran M Tab) 1 tab DAILY PO 08/17/16 09:00 08/17/16 08:44 (Cellcept) 500 mg BID@06,18 PO 08/16/16 18:00 08/17/16 05:57 (Procardia Xl) 30 mg HS PO 08/16/16 21:00 08/16/16 20:58 (Miralax) 17 gm DAILY PRN PO 08/16/16 17:45 (Deltasone) 5 mg DAILY PO 08/17/16 09:00 08/17/16 08:52 (Lyrica) 25 mg TID PO 08/16/16 18:00 08/17/16 08:44 (Sodium Bicarbonate) 650 mg BIDPC PO 08/16/16 18:00 08/17/16 08:43 (Ferrous Sulfate) 325 mg DAILY PO 08/17/16 09:00 08/17/16 08:44 Patient Own Medication PT OWN MED: Linaclot... DAILY PRN PO 08/16/16 17:45 (Prograf) 3 mg DAILY@06,18 PO 08/16/16 18:15 08/17/16 05:57 (Lasix Inj) 40 mg DAILY IV PUSH 08/17/16 09:00 08/17/16 08:45 (Bactrim Ds 800-160 Mg) 1 tab BID PO 08/16/16 21:00 08/17/16 08:44 (D50w (Vial) Inj) 25 ml UNSCH PRN IV PUSH 08/17/16 05:00 (Glucagon Inj) 1 mg UNSCH PRN OTHER 08/17/16 05:00 Family History Noncontributory Social History Denies smoking Or alcohol use Physical Exam Vital Signs Vital Signs Date Time Temp Pulse Resp B/P Pulse Ox O2 Delivery O2 Flow Rate FiO2 08/17/16 09:49 92 21 08/17/16 08:00 97.4 66 20 186/84 94 08/17/16 04:00 97.1 65 18 179/67 93 08/17/16 00:00 98.2 63 16 178/74 97 08/16/16 20:25 71 08/16/16 20:00 98.1 74 20 195/80 94 226/91 190/83 08/16/16 17:00 97.5 66 22 195/90 93 08/16/16 15:33 70 14 98 Physical Exam GENERAL: Well-nourished, well-developed patient. SKIN: Warm and dry. HEAD: Normocephalic. EYES: No scleral icterus. No injection or drainage. NECK: Supple, trachea midline. No JVD or lymphadenopathy. CARDIOVASCULAR: Regular rate and rhythm without murmurs, gallops, or rubs. RESPIRATORY: Breath sounds equal bilaterally. No accessory muscle use. GASTROINTESTINAL: Abdomen soft, non-tender, nondistended. EXTREMITIES: No cyanosis, or edema. Left foot ulcer NEUROLOGICAL: Awake, alert, and oriented x 3. Non-focal. Laboratory Laboratory Tests Test 08/16/16 08/16/16 08/17/16 17:13 21:17 07:00 Troponin I 0.02 0.02 Total Creatine Kinase 138 Creatine Kinase MB 6.4 Thyroid Stimulating Hormone 5.490 3rd Gen Prothrombin Time 12.6 Prothromb Time International 1.1 Ratio Sodium Level 137 Potassium Level 4.8 Chloride Level 107 Carbon Dioxide Level 22.9 Anion Gap 7 Blood Urea Nitrogen 62 Creatinine 2.91 Estimat Glomerular Filtration 22 Rate Random Glucose 142 Calcium Level 8.6 Total Bilirubin 1.4 Aspartate Amino Transf 13 (AST/SGOT) Alanine Aminotransferase 35 (ALT/SGPT) Alkaline Phosphatase 92 Total Protein 6.3 Albumin 3.5 Result Diagram: 08/16/16 1100 08/17/16 0700 Imaging Last Impressions Chest X-Ray 08/16/16 1114 Signed Impressions: Service Date/Time: August 11:58 - CONCLUSION: Changes most characteristic of congestive heart failure with pulmonary edema and small effusions now noted. Robin Reid MD Assessment and Plan Problem List: (1) Kidney transplant status, cadaveric Plan: Patient received diuretics creatinine is little higher due to observed diuretic effect and would recommend cut back down from diuretics and monitor kidney functions closely Obtain kidney ultrasound he has history of obstructive uropathy in the past (2) Diastolic heart failure Plan: He has received diuretic his blood pressure is not well controlled (3) DM (diabetes mellitus) Plan: Monitor (4) Abscess of left foot Plan: Shirt Sorter following (5) Hypertension Plan: Need to just remain on blood pressure medication Problem Qualifiers (1) DM (diabetes mellitus): Stacy Dias MD Aug 17, 2016 11:42
[2016-08-17] MEDS ORDERED: NIFEdipine 30 MG SUSTAINED RELEASE TAB PO ONE (12:00)
--- NOTE | 2016-08-17 12:26 | MB ---
cc: ISAEL BARRON DATE OF CONSULTATION 08/17/2016 DATE OF 1950 REASON FOR CONSULTATION Congestive heart failure HISTORY OF PRESENT ILLNESS The patient is a very pleasant 66-year-old white male, followed in our office by Dr. Johnny Hall with a history of multiple medical problems including end-stage renal disease status post cadaveric kidney transplant with subsequent ongoing problems with renal insufficiency, history of diabetes, carotid disease, mild to moderate aortic stenosis who was admitted with increasing shortness of breath, weight gain, chest pain. Chest x-ray suggests congestive heart failure. The patient states for the past two to three months, he has had increasing dyspnea with overall minimal to mild exertion. The dyspnea has been gradually worsening in severity. He denies paroxysmal nocturnal dyspnea, orthopnea. Intermittently, he experiences mild dependent edema. For the past few months, he also has noticed occasional left-sided chest discomfort described as pressure, never lasting more than a few minutes. There is usually no associated nausea or diaphoresis and there is no definitive relationship of the chest pain to exertion. He reports compliance with his medications and a no added salt diet. He states he had two or three other episodes of congestive heart failure which were attributed to his ongoing kidney problems. PAST MEDICAL HISTORY 1. Diabetes 2. Hypertension 3. Diabetic retinopathy 4. Hepatitis C 5. Carotid disease status post bilateral carotid endarterectomies 2012. 6. End-stage renal disease status post cadaveric kidney transplant 07/12/2014. He developed hydronephrosis of his transplanted kidney and underwent a number of ureteral stenting procedures initially 09/07/2014, as well as percutaneous nephrostomy placement twice and revision of the ureterovesical anastomosis 01/06/2015. 7. Esophageal strictures status post dilation. 8. Mild to moderate aortic stenosis on a 04/09/2016 echo which demonstrated a mean transvalvular aortic gradient of 23 mmHg. MEDICATIONS His current cardiac medications: 1. Isosorbide mononitrate 30 mg p.o. daily 2. Furosemide 40 mg IV daily. 3. Labetalol 200 mg p.o. b.i.d. 4. Nifedipine XL 30 mg p.o. q.h.s. 5. Clonidine 0.1 mg p.o. daily. 6. Heparin 5000 units subcutaneously q8h ALLERGIES NO KNOWN DRUG ALLERGIES. FAMILY HISTORY There is no significant family history of early myocardial infarction. SOCIAL HISTORY The patient is a former smoker. He denies alcohol abuse. REVIEW OF SYSTEMS As in the history of present illness otherwise negative or noncontributory. He also denies headache, abdominal pain, melena, dyspepsia, bright red blood per rectum, cough, fevers. PHYSICAL EXAM VITAL SIGNS: His blood pressure is 186/84 with a pulse of 66, respirations 20. GENERAL: He is a well-developed, well-nourished white male in no acute distress. HEENT: Jugular venous pressure is seen to the mandible. Carotid pulses are 2+ bilaterally and without bruits. CHEST: Examination of the chest reveals decreased breath sounds at the bases. CARDIAC: On cardiac examination, he has a regular rhythm and rate with a grade 2/6 holosystolic murmur heard at the apex and a grade 1-2/6 systolic ejection murmur at the right upper sternal border. No definite gallop is audible. ABDOMEN: On abdominal examination, he has a soft, nontender abdomen. Bowel sounds are present. There is no definite hepatosplenomegaly. EXTREMITIES: Examination of the extremities reveals no clubbing, cyanosis or edema. Chest x-ray shows perihilar and bibasilar opacities, small bilateral pleural effusions. LABORATORY DATA Includes WBC 8.6, hemoglobin 12.8, platelets 142. Potassium 4.8, BUN 62, creatinine 2.91, troponin 0.02, INR 1.1. EKG shows sinus rhythm, left atrial abnormality, left axis deviation, lateral ST and T-wave abnormalities consider ischemia. IMPRESSION Recurrent congestive heart failure in this 66-year-old white male with a history of multiple medical problems including end-stage renal disease status post cadaveric kidney transplant 2014 with subsequent ongoing problems with renal insufficiency, diabetes, hypertension, carotid disease, mild to moderate aortic stenosis. The precipitating factor for his congestive heart failure may be multifactorial, including his renal insufficiency, uncontrolled hypertension, possibly underlying ischemic heart disease. He does have occasional chest discomforts, most of which are atypical for myocardial ischemia, some of which are suggestive of exertional angina. He does have a number of risk factors for coronary artery disease. Reportedly, echocardiogram four months ago showed normal left ventricular function with ejection fraction of 55-60% and only mild to moderate aortic stenosis. By exam, his aortic stenosis is not severe. RECOMMENDATIONS 1. We will leave the diuretic therapy to the medical team. 2. Continue beta nirav therapy. 3. Recheck a 2-D echo to reassess his left ventricular and valvular function. 4. Check a Lexiscan nuclear stress test to rule out underlying significant myocardial ischemia. MD MICKEY Bella/FELICIA /10:15 AM /12:09 PM [id number]
--- NOTE | 2016-08-17 12:33 | RADRPT ---
EXAM DATE/TIME: 08/17/2016 11:26 [place] COMPARISON: US KIDNEY / TRANSPLANT, December 30, 2014, 10:26. INDICATIONS : Increased labs. MEDICAL HISTORY : Hypertension. Chronic obstructive pulmonary disease. Diabetes mellitus type II. SURGICAL HISTORY : Renal transplant. ENCOUNTER: Subsequent ACUITY: 1 day PAIN SCORE: 3/10 LOCATION: Right lower quadrant MEASUREMENTS: TRANSPLANT KIDNEY: 11.1 x 4.8 x 5.8 cm LOCATION: Right lower quadrant. ARCUATE ARTERIES RESISTIVE INDEX: Upper - 0.66 Mid - 0.68 Lower - 0.62 MAIN RENAL ARTERY VELOCITY: (cm/sec): 56 cm/sec MAIN RENAL VEIN: Patent EXTERNAL ILIAC ARTERY VELOCITY (cm/sec): 122 cm/s * NORMAL DOPPLER FINDINGS Arcuate arteries - RI = 0.6 - 0.8 Renal artery = under 200 cm/sec Renal vein = May be monophasic with continuous flow or demonstrate some pulsatility with cardiac cycl e FINDINGS: TRANSPLANT KIDNEY: Normal cortical thickness and echotexture. No hydronephrosis, stone, or mass. There is a chronic flu id collection abutting the lower pole of the kidney. It has a bilobed shape and measures approximatel y 3.3 x 3.5 x 1.8 cm compared to 4.0 x 5.1 x 2.1 cm on the prior study. It contains a few internal se ptations. CONCLUSION: 1. Normal ultrasound appearance of the right lower quadrant renal transplant with normal vascular ass essment. 2. Chronic fluid collection at the lower pole of the transplant kidney measuring up to 3.5 cm. It has slightly decreased in size since the prior study. Given the appearance and chronicity this most like ly represents a lymphocele. Derrek Byrd MD on August 17, 2016 at 12:28 Board Certified Radiologist. This report was verified electronically.
--- NOTE | 2016-08-17 14:10 | PD.POD.CON ---
Patient Intake Chief Complaint Possible abscess third interspace left foot Consult Requested by Dr. Tenorio Reason for Consult Evaluation and treatment of interspace Primary Care Physician Kristen Gordon History of Present Illness Patient is a 66-year-old male who is seen another gas prover in [place] for a swallowing in the third and fourth toes of the left foot. He had multiple cortisone injections in the area did not get better. Some pus was drained from the area. He was referred to the wound center and was seen Dr. Esquivel who did an aspirate of the area which grew out staph. Patient had shortness of breath and fluid retention and was admitted to the hospital and I was consulted to see the patient. Patient has a history of renal transplant. Coded Allergies: No Known Allergies (Unverified , 08/16/16) Preferred Language to Discuss: Indonesian Barriers to Learning: None Teaching Method: Discussion Vital Signs Date Time Temp Pulse Resp B/P Pulse Ox O2 Delivery O2 Flow Rate FiO2 08/17/16 12:00 98.5 63 22 159/69 90 08/17/16 09:49 92 21 08/17/16 08:00 66 08/17/16 08:00 97.4 66 20 186/84 94 08/17/16 04:00 97.1 65 18 179/67 93 08/17/16 00:00 98.2 63 16 178/74 97 08/16/16 20:25 71 08/16/16 20:00 98.1 74 20 195/80 94 226/91 190/83 08/16/16 17:00 97.5 66 22 195/90 93 08/16/16 15:33 70 14 98 Pain scale used: 0-10 numeric scale Pain score: 2 Medications Current Medications Furosemide (Lasix Inj) 40 mg ONCE ONCE IV PUSH Last administered on 08/16/16 11:30; Start 08/16/16 at 11:30; Stop 08/16/16 at 11:31; Status DC Albuterol Sulfate (Albuterol Neb) 2.5 mg ONCE ONCE INH Last administered on 11:39; Start 08/16/16 at 11:45; Stop 08/16/16 at 11:46; Status DC Sodium Chloride (NS Flush) 2 ml UNSCH PRN IV FLUSH FLUSH AFTER USING IV ACCESS ; Start 08/16/16 at 15:15 Sodium Chloride (NS Flush) 2 ml BID IV FLUSH Last administered on 08/17/16 08: 45; Start 08/16/16 at 21:00 Heparin Sodium (Porcine) (Heparin Inj) 5,000 units Q8H SQ Last administered on 08/17/16 08:44; Start 08/16/16 at 16:00 Clonidine (Catapres) 0.1 mg DAILY PO Last administered on 08/17/16 08:44; Start 08/16/16 at 17:45 Docusate Sodium (Colace) 100 mg BID PO Last administered on 08/17/16 08:44; Start 08/16/16 at 21:00 Acetaminophen/ Hydrocodone Bitart ([place] 10-325 Mg) 1 tab TID PRN PO PAIN Last administered on 08/17/16 02:35; Start 08/16/16 at 17:45 Insulin Detemir (Levemir Inj) 22 units HS SQ Last administered on 08/16/16 20: 59; Start 08/16/16 at 21:00; Status Hold Isosorbide Mononitrate (Imdur) 30 mg DAILY PO Last administered on 08/17/16 08 :44; Start 08/17/16 at 09:00 Labetalol HCl (Trandate) 200 mg BID PO Last administered on 08/17/16 08:45; Start 08/16/16 at 21:00 Lorazepam (Ativan) 3 mg HS PO Last administered on 08/16/16 20:58; Start 08/16 at 21:00 Multivitamins/ Minerals Therapeutic (Theragran M Tab) 1 tab DAILY PO Last administered on 08/17/16 08:44; Start 08/17/16 at 09:00 Mycophenolate Mofetil (Cellcept) 500 mg BID@06,18 PO Last administered on 05:57; Start 08/16/16 at 18:00 Nifedipine (Procardia Xl) 30 mg HS PO Last administered on 08/16/16 20:58; Start 08/16/16 at 21:00; Stop 08/17/16 at 11:44; Status DC Polyethylene Glycol (Miralax) 17 gm DAILY PRN PO CONSTIPATION; Start 08/16/16 at 17:45 Prednisone (Deltasone) 5 mg DAILY PO Last administered on 08/17/16 08:52; Start 08/17/16 at 09:00 Pregabalin (Lyrica) 25 mg TID PO Last administered on 08/17/16 08:44; Start at 18:00 Sodium Bicarbonate (Sodium Bicarbonate) 650 mg BIDPC PO Last administered on 08:43; Start 08/16/16 at 18:00 Tacrolimus (Prograf) 3 mg Q12H PO ; Start 08/16/16 at 18:00; Stop 08/16/16 at 18 :10; Status DC Ferrous Sulfate (Ferrous Sulfate) 325 mg DAILY PO Last administered on 08:44; Start 08/17/16 at 09:00 Patient Own Medication PT OWN MED: Linaclot... DAILY PRN PO CONSTIPATION; Start 08/16/16 at 17:45 Tacrolimus (Prograf) 3 mg DAILY@06,18 PO Last administered on 08/17/16 05:57; Start 08/16/16 at 18:15 Furosemide (Lasix Inj) 40 mg DAILY IV PUSH Last administered on 08/17/16 08:45 ; Start 08/17/16 at 09:00 Trimethoprim/ Sulfamethoxazole (Bactrim Ds 800-160 Mg) 1 tab BID PO Last administered on 08/17/16 08:44; Start 08/16/16 at 21:00 Dextrose (D50w (Vial) Inj) 25 ml UNSCH PRN IV PUSH HYPOGLYCEMIA-SEE COMMENTS; Start 08/17/16 at 05:00 Glucagon (Glucagon Inj) 1 mg UNSCH PRN OTHER HYPOGLYCEMIA-SEE COMMENTS; Start 08/17/16 at 05:00 Insulin Aspart (NovoLOG SUPPLEMENTAL SCALE) 1 ACHS SLIDING SCALE SQ ; Start at 07:00 Nifedipine (Procardia Xl) 30 mg BID PO ; Start 08/17/16 at 21:00 Nifedipine (Procardia Xl) 30 mg ONCE ONCE PO ; Start 08/17/16 at 12:00; Stop at 12:01; Status DC Past, Family & Social History Past Medical History HEENT: REPORTS HX OF: Other HEENT history (Sam's syndrom) Endocrine: REPORTS HX OF: Diabetes mellitus Respiratory: REPORTS HX OF: COPD Genitourinary: REPORTS HX OF: Kidney failure, Other history (kidney transplant) Infectious disease: REPORTS HX OF: Chickenpox, Other inf disease history ( shingles) Psychiatric: REPORTS HX OF: Anxiety Disabilities: REPORTS HX OF: Hearing deficit Past Surgical History Cardiovascular: REPORTS HX OF: Other cardiac surgery Genitourinary: REPORTS HX OF: Other surgery (kidney transplant, stents ) Musculoskeletal: REPORTS HX OF: Other musculoskeletal srg (rt knee) Social History Social history: Educational level: Graduated - [employer] Lives independently: Yes Marital status: almost 26 years 1 together and 2 total Occupation: [employer] , retired and disableed Substance Use Substance use: Denies use, Other Review of Systems Constitutional: COMPLAINS OF: Pain Genitourinary: COMPLAINS OF: Renal disease Hematologic/Lymphatic: COMPLAINS OF: Blood borne disease Exam-Podiatry Constitutional General appearance: comfortable Nutritional status: normal Orientation: alert and oriented x3 Dermatological Exam Skin Temp - Right: Within Normal Limits Skin Texture - Right: Within Normal Limits Skin Elasticity - Right: Within Normal Limits Skin Tugor - Right: Within Normal Limits Hair Growth - Right: Within Normal Limits Pigmentation - Right: Within Normal Limits Skin Temp - Left: Within Normal Limits Skin Texture - Left: Within Normal Limits Skin Elasticity - Left: Within Normal Limits Skin Tugor - Left: Within Normal Limits Hair Growth - Left: Within Normal Limits Pigmentation - Left: Within Normal Limits Ulcers: Location/Measurements Macerated interspace third left foot. No pus was expressed. Vascular/Lymphatic Exam R Dorsails Pedis: Palpable L Dorsails Pedis: Palpable R Posterior Tibial: Palpable L Posterior Tibial: Palpable Neurologic Exam Present on right: Tingling, Paraesthesia Present on left: Tingling, Paraesthesia Muscle Strength Dorsiflexion (Right): Normal Plantarflexion (Right): Normal Inversion (Right): Normal Eversion (Right): Normal Digital (Right): Normal Dorsiflexion (Left): Normal Plantarflexion (Left): Normal Inversion (Left): Normal Eversion (Left): Normal Digital (Left): Normal Foot Range of Motion Dorsiflexion (Right): Normal Plantarflexion (Right): Normal Inversion (Right): Normal Eversion (Right): Normal Digital (Right): Normal Dorsiflexion (Left): Normal Plantarflexion (Left): Normal Inversion (Left): Normal Eversion (Left): Normal Digital (Left): Normal Joint Instability Bunion (Left): Non-painful Bunion Wound Assessment Wound Information - Wound One Wound Location: left fourth toe abscess Lab and Radiology Results Laboratory Laboratory Tests Test 08/16/16 11:00 White Blood Count 8.6 TH/MM3 Red Blood Count 4.48 MIL/MM3 Hemoglobin 12.8 GM/DL Hematocrit 39.7 % Mean Corpuscular Volume 88.6 FL Mean Corpuscular Hemoglobin 28.6 PG Mean Corpuscular Hemoglobin 32.2 % Concent Red Cell Distribution Width 17.0 % Platelet Count 142 TH/MM3 Mean Platelet Volume 9.5 FL Neutrophils (%) (Auto) 84.0 % Lymphocytes (%) (Auto) 7.3 % Monocytes (%) (Auto) 8.0 % Eosinophils (%) (Auto) 0.5 % Basophils (%) (Auto) 0.2 % Neutrophils # (Auto) 7.3 TH/MM3 Lymphocytes # (Auto) 0.6 TH/MM3 Monocytes # (Auto) 0.7 TH/MM3 Eosinophils # (Auto) 0.0 TH/MM3 Basophils # (Auto) 0.0 TH/MM3 CBC Comment DIFF FINAL Differential Comment Laboratory Tests Test 08/16/16 08/16/16 08/16/16 08/17/16 11:00 17:13 21:17 07:00 Sodium Level 140 MEQ/L 137 MEQ/L Potassium Level 5.2 MEQ/L 4.8 MEQ/L Chloride Level 110 MEQ/L 107 MEQ/L Carbon Dioxide Level 20.1 MEQ/L 22.9 MEQ/L Anion Gap 10 MEQ/L 7 MEQ/L Blood Urea Nitrogen 57 MG/DL 62 MG/DL Creatinine 2.56 MG/DL 2.91 MG/DL Estimat Glomerular Filtration 25 ML/MIN 22 ML/MIN Rate Random Glucose 106 MG/DL 142 MG/DL Calcium Level 8.6 MG/DL 8.6 MG/DL Magnesium Level 2.2 MG/DL Total Bilirubin 1.3 MG/DL 1.4 MG/DL Aspartate Amino Transf 18 U/L 13 U/L (AST/SGOT) Alanine Aminotransferase 42 U/L 35 U/L (ALT/SGPT) Alkaline Phosphatase 95 U/L 92 U/L Total Creatine Kinase 138 U/L 138 U/L Creatine Kinase MB 7.8 NG/ML 6.4 NG/ML Troponin I 0.02 NG/ML 0.02 NG/ML 0.02 NG/ML B-Type Natriuretic Peptide 1599 PG/ML Total Protein 6.4 GM/DL 6.3 GM/DL Albumin 3.5 GM/DL 3.5 GM/DL Thyroid Stimulating Hormone 5.490 uIU/ML 3rd Gen Free Thyroxine 1.10 NG/DL Radiology Last Impressions Renal Ultrasound 08/17/16 0000 Signed Impressions: Service Date/Time: Wednesday, August 17, 2016 11:26 - CONCLUSION: 1. Normal ultrasound appearance of the right lower quadrant renal transplant with normal vascular assessment. 2. Chronic fluid collection at the lower pole of the transplant kidney measuring up to 3.5 cm. It has slightly decreased in size since the prior study. 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 Derrek Byrd MD Chest X-Ray 08/16/16 1114 Signed Impressions: Service Date/Time: August 11:58 - CONCLUSION: Changes most characteristic of congestive heart failure with pulmonary edema and small effusions now noted. Robin Reid MD Assessment/Plan Problem List: (1) Abscess of left foot Status: Acute (2) Foot ulcer Status: Acute (3) IDDM (insulin dependent diabetes mellitus) Status: Chronic Additional Plans & Procedures PLAN: Swab daily the interspace with alcohol and pack with Maxorb. Ordered MRI to rule out abscess of foot. No baths or showers. After discharge patient can follow-up in my office or the wound center. Chung Matos DPM Aug 17, 2016 14:10
--- NOTE | 2016-08-17 15:01 | EC ---
Study Study Date:08/17/2016 STUDY CONCLUSIONS SUMMARY - Procedure narrative: Transthoracic echocardiography. Image quality was fair. Scanning was performed from the parasternal, apical, and subcostal acoustic windows. - Left ventricle: The cavity size was mildly dilated. Wall thickness was at the upper limits of normal. Systolic function was moderately to severely reduced. The estimated ejection fraction was 35%. Diffuse hypokinesis. - Aortic valve: Trileaflet; moderately thickened, mildly calcified leaflets. Transvalvular velocity was within the normal range. There was mild to moderate stenosis. Mean gradient: 22mm Hg (S). - Mitral valve: Trace regurgitation. - Tricuspid valve: Trace regurgitation. - Pulmonary arteries: PA peak pressure: 58mm Hg (S). If LV function is below 40, please consider prescribing an ACEI or ARB or document rationale for non-use. PROCEDURE DATA STUDY STATUS: Elective. Procedure: Transthoracic echocardiography. Image quality was fair. Scanning was performed from the parasternal, apical, and subcostal acoustic windows. Study completion: The patient tolerated the procedure well. Transthoracic echocardiography. M-mode, complete 2D, complete spectral Doppler, and color Doppler. Patient status: Inpatient. CARDIAC ANATOMY LEFT VENTRICLE: The cavity size was mildly dilated. Wall thickness was at the upper limits of normal. Systolic function was moderately to severely reduced. The estimated ejection fraction was 35%. Diffuse hypokinesis. AORTIC VALVE: Trileaflet; moderately thickened, mildly calcified leaflets. Doppler: Transvalvular velocity was within the normal range. There was mild to moderate stenosis. No regurgitation. Valve area: 1.26cm^2(VTI). Valve area: 1.2cm^2 (Vmax). Mean gradient: 22mm Hg (S). Peak gradient: 43mm Hg (S). AORTA: Aortic root: The aortic root was normal in size. MITRAL VALVE: Structurally normal valve. Doppler: Transvalvular velocity was within the normal range. There was no evidence for stenosis. Trace regurgitation. LEFT ATRIUM: The atrium was normal in size. RIGHT VENTRICLE: The cavity size was normal. Wall thickness was normal. PULMONIC VALVE: Doppler: Transvalvular velocity was within the normal range. There was no evidence for stenosis. No regurgitation. TRICUSPID VALVE: Structurally normal valve. Doppler: Transvalvular velocity was within the normal range. Trace regurgitation. PULMONARY ARTERY: The main pulmonary artery was normal-sized. Systolic pressure was within the normal range. RIGHT ATRIUM: The atrium was normal in size. PERICARDIUM: There was no pericardial effusion. SYSTEMIC VEINS: Inferior vena cava: The vessel was normal in size. BASIC MEASUREMENTS ADULT NORMAL Left ventricle LV internal dimension, ED, chordal level, *62.2 mm 43-52 PLAX LV internal dimension, ES, chordal level, *53 mm 23-38 PLAX Fractional shortening, chordal level, PLAX *15 % >29 LV posterior wall thickness, ED 13.1 mm IVS/LVPW ratio, ED 1.13 <1.3 Ventricular septum Septal thickness, ED 14.8 mm Right ventricle RV internal dimension, ED, PLAX 28.3 mm 19-38 DOPPLER MEASUREMENTS ADULT NORMAL Main pulmonary artery Pressure, S *58 mm Hg =30 Aortic valve Peak velocity, S 329 cm/s Mean velocity, S 212 cm/s VTI, S 80.1 cm Mean gradient, S 22 mm Hg Peak gradient, S 43 mm Hg Valve area, VTI 1.26 cm^2 Valve area, Vmax 1.2 cm^2 Tricuspid valve Regurgitant peak velocity 345 cm/s Peak RV-RA gradient, S 48 mm Hg Maximal regurgitant velocity 345 cm/s Systemic veins Estimated CVP 10 mm Hg Right ventricle RV pressure, S *58 mm Hg <30 LEGEND: Mean values are shown as u=mean value. Asterisk (*) barnett values outside specified normal range. Prepared and signed by Elijah Madden [id number]
--- NOTE | 2016-08-17 15:23 | HHI.PR ---
Subjective Remarks Patient states sob better however still c/o dyspnea on exertion. denies cp denies fevers or chills creatinine slightly elevated overnight events reviewed patient hypoglycemic with blood sugar of 54 today Patient denies any dizziness Objective Vitals Vital Signs Date Time Temp Pulse Resp B/P Pulse Ox O2 Delivery O2 Flow Rate FiO2 08/17/16 12:00 98.5 63 22 159/69 90 08/17/16 09:49 92 21 08/17/16 08:00 66 08/17/16 08:00 97.4 66 20 186/84 94 08/17/16 04:00 97.1 65 18 179/67 93 08/17/16 00:00 98.2 63 16 178/74 97 08/16/16 20:25 71 08/16/16 20:00 98.1 74 20 195/80 94 226/91 190/83 08/16/16 17:00 97.5 66 22 195/90 93 08/16/16 15:33 70 14 98 I/O 08/16/16 08/16/16 08/16/16 08/17/16 08/17/16 08/17/16 07:00 15:00 23:00 07:00 15:00 23:00 Output Total 100 ml Balance -100 ml Output Urine Total 100 ml # Voids 5 3 Result Diagram: 08/16/16 1100 08/17/16 0700 Imaging Last Impressions Renal Ultrasound 08/17/16 0000 Signed Impressions: Service Date/Time: Wednesday, August 17, 2016 11:26 - CONCLUSION: 1. Normal ultrasound appearance of the right lower quadrant renal transplant with normal vascular assessment. 2. Chronic fluid collection at the lower pole of the transplant kidney measuring up to 3.5 cm. It has slightly decreased in size since the prior study. 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 Derrek Byrd MD Chest X-Ray 08/16/16 1114 Signed Impressions: Service Date/Time: August 11:58 - CONCLUSION: Changes most characteristic of congestive heart failure with pulmonary edema and small effusions now noted. Robin Reid MD Objective Remarks GENERAL: This is a well-nourished, well-developed patient, in no apparent distress. SKIN: No rashes, ecchymoses or lesions. Cool and dry. HEAD: Atraumatic. Normocephalic. No temporal or scalp tenderness. EYES: Pupils equal round and reactive. Extraocular motions intact. No scleral icterus. No injection or drainage. ENT: Nose without bleeding, purulent drainage or septal hematoma. Throat without erythema, tonsillar hypertrophy or exudate. Uvula midline. Airway patent. NECK: Trachea midline. No JVD or lymphadenopathy. Supple, nontender, no meningeal signs. CARDIOVASCULAR: Regular rate and rhythm without murmurs, gallops, or rubs. RESPIRATORY: Clear to auscultation. Breath sounds equal bilaterally. No wheezes , rales, or rhonchi. GASTROINTESTINAL: Abdomen soft, non-tender, mildly distended. No hepato- splenomegaly, or palpable masses. No guarding. (+) ascites MUSCULOSKELETAL: Extremities without clubbing, cyanosis, or edema. No joint tenderness, effusion, or edema noted. No calf tenderness. Negative Homans sign bilaterally. Left foot is covered by some dressings which are C/D/I. There is no edema, erythema or tenderness on palpation. NEUROLOGICAL: Awake and alert. Cranial nerves II through XII intact. Motor and sensory grossly within normal limits. Five out of 5 muscle strength in all muscle groups. Normal speech. Medications and IVs Current Medications Medications (Trade) Dose Ordered Sig/Rai Route Start Time Stop Time Status Last Admin (NS Flush) 2 ml UNSCH PRN IV FLUSH 08/16/16 15:15 (NS Flush) 2 ml BID IV FLUSH 08/16/16 21:00 08/17/16 08:45 (Heparin Inj) 5,000 units Q8H SQ 08/16/16 16:00 08/17/16 15:07 (Catapres) 0.1 mg DAILY PO 08/16/16 17:45 08/17/16 08:44 (Colace) 100 mg BID PO 08/16/16 21:00 08/17/16 08:44 ([place] 10-325 Mg) 1 tab TID PRN PO 08/16/16 17:45 08/17/16 15:07 (Levemir Inj) 22 units HS SQ 08/16/16 21:00 Hold 08/16/16 20:59 (Imdur) 30 mg DAILY PO 08/17/16 09:00 08/17/16 08:44 (Trandate) 200 mg BID PO 08/16/16 21:00 08/17/16 08:45 (Ativan) 3 mg HS PO 08/16/16 21:00 08/16/16 20:58 (Theragran M Tab) 1 tab DAILY PO 08/17/16 09:00 08/17/16 08:44 (Cellcept) 500 mg BID@,18 PO 08/16/16 18:00 08/17/16 05:57 (Miralax) 17 gm DAILY PRN PO 08/16/16 17:45 (Deltasone) 5 mg DAILY PO 08/17/16 09:00 08/17/16 08:52 (Lyrica) 25 mg TID PO 08/16/16 18:00 08/17/16 08:44 (Sodium Bicarbonate) 650 mg BIDPC PO 08/16/16 18:00 08/17/16 08:43 (Ferrous Sulfate) 325 mg DAILY PO 08/17/16 09:00 08/17/16 08:44 Patient Own Medication PT OWN MED: Linaclot... DAILY PRN PO 08/16/16 17:45 (Prograf) 3 mg DAILY@18 PO 08/16/16 18:15 08/17/16 05:57 (Lasix Inj) 40 mg DAILY IV PUSH 08/17/16 09:00 08/17/16 08:45 (Bactrim Ds 800-160 Mg) 1 tab BID PO 08/16/16 21:00 08/17/16 08:44 (D50w (Vial) Inj) 25 ml UNSCH PRN IV PUSH 08/17/16 05:00 (Glucagon Inj) 1 mg UNSCH PRN OTHER 08/17/16 05:00 (Procardia Xl) 30 mg BID PO 08/17/16 21:00 Urinary Catheter: No Vascular Central Line Catheter: No A/P Problem List: (1) Acute on chronic diastolic (congestive) heart failure ICD Code: I50.33 Status: Acute (2) Hypertension ICD Code: I10 Status: Chronic (3) Hyperkalemia ICD Code: E87.5 Status: Acute (4) DM (diabetes mellitus) ICD Code: E11.9 Status: Chronic (5) Kidney transplanted ICD Code: Z94.0 Status: Chronic (6) ESRD (end stage renal disease) ICD Code: N18.6 Status: Chronic (7) Abscess of left foot ICD Code: L02.612 Status: Acute (8) Anasarca ICD Code: R60.1 Status: Acute Plan: Patient with pulmonary edema, ascites and bilateral extremity edema which is improving on IV diuretics. Continue with IV diuretics. Assessment and Plan (1) Acute on chronic diastolic (congestive) heart failure Plan: Placed the patient under observation, the patient status post IV Lasix in the emergency department with good response Last echocardiogram obtained on 04/10/16 showed an EF of 55-60% Cardiology consulted, echocardiogram performed today shows a moderately decreased ejection fraction of 35% with diffuse hypokinesis. The patient will go for Lexiscan. Appreciate nephrology recommendations, recommended backing off from IV diuretics due to increase in BUN/creatinine. I will decrease the dose of IV Lasix from 40-20 mg IV daily. (2) Hypertension Plan: Patient seems to have a very elevated and uncontrolled systolic blood pressure with a blood pressure of into the 190s. I will continue home antihypertensive medications which include labetalol, clonidine, nifedipine. Continue clonidine as needed. Continue Cardura 2 mg at bedtime. Patient started on 30 mg of Procardia by mouth twice a day as per nephrology. (3) Hyperkalemia ICD Code: E87.5 Status: Acute Plan: Likely due to decreased potassium excretion. Potassium 5.2, mild hyperkalemia. Continue to monitor BMP. IV diuretics should help lowering the potassium. 08/17 hyperkalemia resolved. Potassium now the normal range. Continue to monitor BMP. (4) DM (diabetes mellitus) ICD Code: E11.9 Status: Chronic Plan: Continue home medications which include SSI with insulin NovoLog and long -acting insulin Lantus. Monitor Accu-Cheks. 08/16 hold long-acting insulin secondary to hypoglycemia. Continue SSI with insulin NovoLog and to monitor Accu-Cheks. (5) Kidney transplanted Plan: Continue immunosuppressive therapy with tacrolimus and mycophenolate. Renal ultrasound of the transplant kidney shows normal ultrasound appearance of the right lower quadrant renal transplant with normal vascular assessment. Chronic fluid collection of the lower pole of the transplant kidney measuring up to 2.5 cm. Which is slightly decreased in size since the prior study. 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 (6) ESRD (end stage renal disease) Plan: Status post kidney transplant. As above. (7) Abscess of left foot Plan: Patient had a drainage of the left foot abscess on 08/10/16 which wound culture grew MSSA. Continue by mouth Bactrim. I will order podiatry consultation. 08/17 appreciate podiatry evaluation and recommendations. MRI of the left foot ordered to rule out abscess. Will follow. Discharge Planning Continue to monitor in the medical floor. DC pending MRI of the foot, Lexiscan , clearance to DC BiPAP with podiatry, cardiology and nephrology. Problem Qualifiers (1) DM (diabetes mellitus): Santos Barillas MD Aug 17, 2016 15:23
[2016-08-17] MEDS: NIFEdipine 30 MG SUSTAINED RELEASE TAB PO SCH (21:16)
[2016-08-17] MEDS: LORazepam 1 MG TAB PO SCH (22:14)
[2016-08-18] VITALS (7 sets, daily range): BP systolic 148–178; BP diastolic 66–79; PULSE 56–70; RESP 16–18; TEMP 97.7–97.9; O2SAT 91–96
--- NOTE | 2016-08-18 00:04 | RADRPT ---
EXAM DATE/TIME: 08/17/2016 19:17 [facility] COMPARISON: No previous studies available for comparison. INDICATIONS : Abscess. MEDICAL HISTORY : Renal disease, end stage. Diabetes mellitus type 2. Hepatitis C. Hypertension. SURGICAL HISTORY : Carotid endarterectomy. Kidney transplant. ENCOUNTER: Initial ACUITY: 1 day PAIN SCORE: 4/10 LOCATION: Left foot TECHNIQUE: Multiplanar, multisequence MRI examination was performed without contrast. FINDINGS: MR of the foot is performed without contrast. There is a multilocular fluid signal intensity area bet ween the third and fourth toes both on the plantar surface as well as dorsally in an L-shaped configu ration measuring 2 cm in width and 2 cm in depth. There is a fluid fluid level within the dorsally pl aced collection. This would be characteristic of abscess. No focal areas of marrow placement are iden tified. There is no bony destruction or periosteal reaction to suggest osteomyelitis. 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 CONCLUSION: Multilocular fluid intensity collection as described above which may reflect abscess. Skin thickening and subcutaneous edema is also present dorsally characteristic of cellulitis. No evidence of osteomy prasanna Morales MD on August 17, 2016 at 23:56 Board Certified Radiologist. This report was verified electronically.
[2016-08-18] MEDS: HEPARIN SODIUM - SQ 10,000 UNITS/ML VIAL SQ SCH ×4 (00:14→23:53)
[2016-08-18] MEDS: ACETAMINOPHEN/HYDROcodone 325 MG/10 MG TAB PO PRN ×3 (00:15→18:31)
[2016-08-18 06:15] LABS: AUTOMATED NEUTROPHIL # 3.6 TH/MM3 (1.8-7.7); BASOPHIL # 0.1 TH/MM3 (0-0.2); BASOPHIL % 1.2 % (0.0-2.0); HEMATOCRIT 37.8 % (39.0-51.0); HEMO FLAGS DIFF FINAL; LYMPH % 16.3 % (9.0-44.0); LYMPHOCYTE # 0.8 TH/MM3 (1.0-4.8); MEAN CELL VOLUME 88.8 FL (80.0-100.0); MEAN CORPUSCULAR HEMOGLOBIN 28.5 PG (27.0-34.0); MEAN CORPUSCULAR HGB CONC 32.1 % (32.0-36.0); MONO % 9.6 % (0.0-8.0); NEUT % 71.9 % (16.0-70.0); PLATELET COUNT 137 TH/MM3 (150-450); RED BLOOD COUNT 4.25 MIL/MM3 (4.50-5.90); RED CELL DISTRIBUTION WIDTH 16.9 % (11.6-17.2)
[2016-08-18] MEDS: MYCOPHENOLATE MOFETIL 500 MG TAB PO SCH ×2 (06:37→18:31)
[2016-08-18] MEDS: TACROLIMUS 0.5 MG CAP PO SCH (06:37)
[2016-08-18] MEDS: INSULIN ASPART SUPPLEMENTAL SCALE SQ SCH ×4 (06:40→22:21)
[2016-08-18 07:07] LABS: ALT (GPT) 29 U/L (12-78); ANION GAP 8 MEQ/L (5-15); AST (GOT) 10 U/L (15-37); BICARBONATE 20.6 MEQ/L (21.0-32.0); BLOOD UREA NITROGEN 55 MG/DL (7-18); CHLORIDE 110 MEQ/L (98-107); GLOMERULAR FILTRATION RATE 25 ML/MIN (>89); MAGNESIUM 2.4 MG/DL (1.5-2.5); POTASSIUM 5.2 MEQ/L (3.5-5.1); SODIUM (NA) 139 MEQ/L (136-145)
[2016-08-18 07:09] LABS: ALKALINE PHOSPHATASE 89 U/L (45-117); TOTAL BILIRUBIN ADULT 1.2 MG/DL (0.2-1.0)
[2016-08-18] MEDS ORDERED: FUROSEMIDE 40 MG/4 ML VIAL IV PUSH SCH (09:00)
[2016-08-18] MEDS ORDERED: REGADENOSON INJ 0.4 MG/5 ML SYR ONE (09:22)
[2016-08-18] MEDS: FERROUS SULFATE 325 MG (65 MG ELEMENTAL IRON) TAB PO SCH (09:26)
[2016-08-18] MEDS: cloNIDine HCL 0.1 MG TAB PO SCH ×2 (09:26→18:31)
[2016-08-18] MEDS: SULFAMETHOXAZOLE-TRIMETHOPRIM DS 800-160 MG TAB PO SCH ×2 (09:26→22:05)
[2016-08-18] MEDS: PREGABALIN 25 MG CAP PO SCH ×3 (09:26→18:31)
[2016-08-18] MEDS: MULTIVITAMINS/MINERALS THERAPEUTIC TAB PO SCH (09:26)
[2016-08-18] MEDS: LABETALOL HCL 200 MG TAB PO SCH (09:27)
[2016-08-18] MEDS: SODIUM BICARBONATE 650 MG TAB PO SCH ×2 (09:27→18:30)
[2016-08-18] MEDS: NIFEdipine 30 MG SUSTAINED RELEASE TAB PO SCH ×2 (09:27→22:05)
[2016-08-18] MEDS: ISOSORBIDE MONONITRATE 30 MG TAB PO SCH (09:27)
[2016-08-18] MEDS: DOCUSATE SODIUM 100 MG CAP PO SCH ×2 (09:27→22:05)
[2016-08-18] MEDS: SODIUM CHLORIDE 0.9% FLUSH 10 ML FLUSH IV FLUSH SCH ×2 (09:29→22:04)
--- NOTE | 2016-08-18 10:24 | PD.CARD.PN ---
Subjective Subjective Remarks Dyspnea "much better". Minimal chest discomfort with very deep breaths. No dizziness, palpitations. Slept well. Objective Medications Item Value Date Time Furosemide 20 mg 08/18/16 0900 (Lasix Inj) DAILY/IV PUSH 08/18/16928 Nifedipine 30 mg 08/17/162099 (Procardia Xl) BID/PO 08/18/16926 Isosorbide 30 mg 08/17/1600 Mononitrate DAILY/PO 08/18/16926 (Imdur) Labetalol HCl 200 mg 08/16/162099 (Trandate) BID/PO 08/18/16926 Clonidine 0.1 mg 08/16/16 174 (Catapres) DAILY/PO 08/18/16925 Heparin Sodium 5,000 units 08/16/16 1600 (Porcine) Q8H/SQ 08/18/16927 (Heparin Inj) Vital Signs / I&O Vital Signs Date Time Temp Pulse Resp B/P Pulse Ox O2 Delivery O2 Flow Rate FiO2 08/18/16 04:00 97.9 67 16 163/70 91 08/18/16 00:00 97.8 70 16 150/66 94 08/17/16 20:00 97.8 75 18 191/84 98 08/17/16 18:08 70 08/17/16 16:07 20 08/17/16 16:00 98.0 63 20 173/86 94 08/17/16 12:00 98.5 63 22 159/69 90 I/O 08/17/16 08/17/16 08/17/16 08/18/16 08/18/16 08/18/16 07:00 15:00 23:00 07:00 15:00 23:00 Intake Total 1280 ml 600 ml 100 ml Output Total 100 ml 1050 ml 450 ml 475 ml Balance -100 ml 230 ml 150 ml -375 ml Intake Oral 1280 ml 600 ml 100 ml Output Urine Total 100 ml 1050 ml 450 ml 475 ml # Voids 3 # Bowel Movements 1 0 0 Physical Exam GENERAL: Well developed, well nourished. No acute distress. HEENT: Jugular venous pressure is normal. CHEST: Lungs clear to auscultation bilaterally. Unlabored respiratory effort. CARDIAC: Regular rate and rhythm without S3, S4. II/ [place] base. Normal S2. ABDOMEN: Soft, nontender, no hepatosplenomegaly. Bowel sounds present. EXTREMITIES: No clubbing, cyanosis, or edema. Laboratory Laboratory Tests Test 08/18/16 05:30 White Blood Count 5.0 TH/MM3 Red Blood Count 4.25 MIL/MM3 Hemoglobin 12.1 GM/DL Hematocrit 37.8 % Mean Corpuscular Volume 88.8 FL Mean Corpuscular Hemoglobin 28.5 PG Mean Corpuscular Hemoglobin 32.1 % Concent Red Cell Distribution Width 16.9 % Platelet Count 137 TH/MM3 Mean Platelet Volume 9.4 FL Neutrophils (%) (Auto) 71.9 % Lymphocytes (%) (Auto) 16.3 % Monocytes (%) (Auto) 9.6 % Eosinophils (%) (Auto) 1.0 % Basophils (%) (Auto) 1.2 % Neutrophils # (Auto) 3.6 TH/MM3 Lymphocytes # (Auto) 0.8 TH/MM3 Monocytes # (Auto) 0.5 TH/MM3 Eosinophils # (Auto) 0.0 TH/MM3 Basophils # (Auto) 0.1 TH/MM3 CBC Comment DIFF FINAL Differential Comment Sodium Level 139 MEQ/L Potassium Level 5.2 MEQ/L Chloride Level 110 MEQ/L Carbon Dioxide Level 20.6 MEQ/L Anion Gap 8 MEQ/L Blood Urea Nitrogen 55 MG/DL Creatinine 2.57 MG/DL Estimat Glomerular Filtration 25 ML/MIN Rate Random Glucose 146 MG/DL Calcium Level 8.5 MG/DL Phosphorus Level 3.0 MG/DL Magnesium Level 2.4 MG/DL Total Bilirubin 1.2 MG/DL Aspartate Amino Transf 10 U/L (AST/SGOT) Alanine Aminotransferase 29 U/L (ALT/SGPT) Alkaline Phosphatase 89 U/L Total Protein 5.8 GM/DL Albumin 3.2 GM/DL Assessment and Plan Problem List: (1) CHF exacerbation Assessment and Plan: Symptomatically much improved. EF by echo appears down to 35%, unclear etiology. To undergo nuclear stress testing this morning to rule out underlying severe CAD. Rec consider changing his beta nirav to carvedilol 25 mg bid. No SEGUNDO-I with his renal insufficiency. Consider changing furosemide to his usual po dosing. (2) Hypertension Assessment and Plan: Overall suboptimal BP control. Rec consider changing labetalol to carvedilol as above. (3) Chest pain Assessment and Plan: Overall very atypical CP's past 2-3 months. Awaiting nuclear stress testing this morning. Consider discharge if no ischemia demonstrated. Code Status full code Discussed Condition With patient Problem Qualifiers (1) CHF exacerbation: Qualified Code: I50.23 - Acute on chronic systolic congestive heart failure (2) Hypertension: Qualified Code: I10 - Essential hypertension (3) Chest pain: Qualified Code: R07.9 - Chest pain, unspecified type Elijah Madden MD Aug 18, 2016 10:24
[2016-08-18] MEDS ORDERED: AMINOPHYLLINE INJ 250 MG/10 ML VIAL ONE (10:45)
--- NOTE | 2016-08-18 12:32 | RADRPT ---
EXAM DATE/TIME: 08/17/2016 11:42 [facility] COMPARISON: No previous studies available for comparison. INDICATIONS : Shortness of breath. Coronary artery disease. DOSE: 31.2 mCi Tc99m Myoview at stress. 29.3 mCi Tc99m Myoview at rest. 0.4 mg Lexiscan STRESS SYMPTOMS: Nausea, stomach pain, and anixous. MEDICATIONS: 1.) 100 mg Aminophylline IV EJECTION FRACTION: 33% MEDICAL HISTORY : Hypertension. Diabetes mellitus type 2. SURGICAL HISTORY : Kidney transplant. ENCOUNTER: Initial ACUITY: 1 day PAIN SCALE: 0/10 LOCATION: chest TECHNIQUE: The patient underwent pharmacologic stress with infusion of prescribed dose. Continuous ECG tracing was monitored during stress. Gated SPECT imaging was performed after stress and conventional SPECT i maging was performed at rest. The examination was performed on a SPECT/CT scanner, both attenuation and non-corrected datasets were reviewed. FINDINGS: DISTRIBUTION: The maximum perfused segment at stress is in the anterolateral wall. PERFUSION STUDY: The pattern of perfusion at stress demonstrates a dilated ventricular chamber with significant global hypokinesis and no significant ischemia. On the nonattenuation corrected images there is a fixed def ect in the posterior basal inferior wall may be due to diaphragmatic attenuation. Similarly there is slight degree of increased flow on the nonattenuation corrected images during rest involving the ante rolateral wall also probably artifactually created. GATED STUDY: There is global hypokinesis. CONCLUSION: Global hypokinesis and reduction in ejection fraction and no significant ischemia. RISK CATEGORY: Intermediate (1-3% Annual Mortality Rate) Guillermo Frausto MD on August 18, 2016 at 12:26 Board Certified Radiologist. This report was verified electronically.
--- NOTE | 2016-08-18 13:55 | PD.POD ---
Subjective Podiatric Problems 66-year-old diabetic presents with abscess in the third interspace of the left foot. MRI shows abscess formation. Patient has had pus expressed from the area in the past. Pain scale used: 0-10 numeric scale Pain score: 2 Remarks History of renal transplant. History of CHF. Patient was seen in the wound center on the and had pus expressed from the area. He was hospitalized for shortness of breath since that time. Past Med/Surg/Social History Past Medical History HEENT: REPORTS HX OF: Other HEENT history (Sam's syndrom) Endocrine: REPORTS HX OF: Diabetes mellitus Respiratory: REPORTS HX OF: COPD Genitourinary: REPORTS HX OF: Kidney failure, Other history (kidney transplant) Infectious disease: REPORTS HX OF: Chickenpox, Other inf disease history ( shingles) Psychiatric: REPORTS HX OF: Anxiety Disabilities: REPORTS HX OF: Hearing deficit Past Surgical History Cardiovascular: REPORTS HX OF: Other cardiac surgery Genitourinary: REPORTS HX OF: Other surgery (kidney transplant, stents ) Musculoskeletal: REPORTS HX OF: Other musculoskeletal srg (rt knee) Social History Smoking Status: Former Smoker Review of Systems Notes Better breathing since yesterday. Neurological: COMPLAINS OF: Numbness/tingling, Changes in sensation Objective Vital Signs Vital Signs Date Time Temp Pulse Resp B/P Pulse Ox O2 Delivery O2 Flow Rate FiO2 08/18/16 08:00 97.7 62 18 173/77 94 08/18/16 04:00 97.9 67 16 163/70 91 08/18/16 00:00 97.8 70 16 150/66 94 08/17/16 20:00 97.8 75 18 191/84 98 08/17/16 18:08 70 08/17/16 16:07 20 08/17/16 16:00 98.0 63 20 173/86 94 Coded Allergies: No Known Allergies (Unverified , 08/16/16) Medications and IVs Current Medications Furosemide (Lasix Inj) 40 mg ONCE ONCE IV PUSH Last administered on 08/16/16 11:30; Start 08/16/16 at 11:30; Stop 08/16/16 at 11:31; Status DC Albuterol Sulfate (Albuterol Neb) 2.5 mg ONCE ONCE INH Last administered on 11:39; Start 08/16/16 at 11:45; Stop 08/16/16 at 11:46; Status DC Sodium Chloride (NS Flush) 2 ml UNSCH PRN IV FLUSH FLUSH AFTER USING IV ACCESS ; Start 08/16/16 at 15:15 Sodium Chloride (NS Flush) 2 ml BID IV FLUSH Last administered on 08/18/16 09: 29; Start 08/16/16 at 21:00 Heparin Sodium (Porcine) (Heparin Inj) 5,000 units Q8H SQ Last administered on 08/18/16 09:28; Start 08/16/16 at 16:00 Clonidine (Catapres) 0.1 mg DAILY PO Last administered on 08/18/16 09:26; Start 08/16/16 at 17:45 Docusate Sodium (Colace) 100 mg BID PO Last administered on 08/18/16 09:27; Start 08/16/16 at 21:00 Acetaminophen/ Hydrocodone Bitart (Buford 10-325 Mg) 1 tab TID PRN PO PAIN Last administered on 08/18/16 09:45; Start 08/16/16 at 17:45 Insulin Detemir (Levemir Inj) 22 units HS SQ Last administered on 08/16/16 20: 59; Start 08/16/16 at 21:00; Status Hold Isosorbide Mononitrate (Imdur) 30 mg DAILY PO Last administered on 08/18/16 09 :27; Start 08/17/16 at 09:00 Labetalol HCl (Trandate) 200 mg BID PO Last administered on 08/18/16 09:27; Start 08/16/16 at 21:00 Lorazepam (Ativan) 3 mg HS PO Last administered on 08/17/16 22:14; Start 08/16 at 21:00 Multivitamins/ Minerals Therapeutic (Theragran M Tab) 1 tab DAILY PO Last administered on 08/18/16 09:26; Start 08/17/16 at 09:00 Mycophenolate Mofetil (Cellcept) 500 mg BID@06,18 PO Last administered on 06:37; Start 08/16/16 at 18:00 Nifedipine (Procardia Xl) 30 mg HS PO Last administered on 08/16/16 20:58; Start 08/16/16 at 21:00; Stop 08/17/16 at 11:44; Status DC Polyethylene Glycol (Miralax) 17 gm DAILY PRN PO CONSTIPATION; Start 08/16/16 at 17:45 Prednisone (Deltasone) 5 mg DAILY PO Last administered on 08/17/16 08:52; Start 08/17/16 at 09:00 Pregabalin (Lyrica) 25 mg TID PO Last administered on 08/18/16 12:34; Start at 18:00 Sodium Bicarbonate (Sodium Bicarbonate) 650 mg BIDPC PO Last administered on 09:27; Start 08/16/16 at 18:00 Tacrolimus (Prograf) 3 mg Q12H PO ; Start 08/16/16 at 18:00; Stop 08/16/16 at 18 :10; Status DC Ferrous Sulfate (Ferrous Sulfate) 325 mg DAILY PO Last administered on 09:26; Start 08/17/16 at 09:00 Patient Own Medication PT OWN MED: Linaclot... DAILY PRN PO CONSTIPATION; Start 08/16/16 at 17:45 Tacrolimus (Prograf) 3 mg DAILY@06,18 PO Last administered on 08/18/16 06:37; Start 08/16/16 at 18:15 Furosemide (Lasix Inj) 40 mg DAILY IV PUSH Last administered on 08/17/16 08:45 ; Start 08/17/16 at 09:00; Stop 08/17/16 at 15:32; Status DC Trimethoprim/ Sulfamethoxazole (Bactrim Ds 800-160 Mg) 1 tab BID PO Last administered on 08/18/16 09:26; Start 08/16/16 at 21:00 Dextrose (D50w (Vial) Inj) 25 ml UNSCH PRN IV PUSH HYPOGLYCEMIA-SEE COMMENTS; Start 08/17/16 at 05:00 Glucagon (Glucagon Inj) 1 mg UNSCH PRN OTHER HYPOGLYCEMIA-SEE COMMENTS; Start 08/17/16 at 05:00 Insulin Aspart (NovoLOG SUPPLEMENTAL SCALE) 1 ACHS SLIDING SCALE SQ Last administered on 08/18/16 12:34; Start 08/17/16 at 07:00 Nifedipine (Procardia Xl) 30 mg BID PO Last administered on 08/18/16 09:27; Start 08/17/16 at 21:00 Nifedipine (Procardia Xl) 30 mg ONCE ONCE PO Last administered on 08/17/16 15 :07; Start 08/17/16 at 12:00; Stop 08/17/16 at 12:01; Status DC Furosemide (Lasix Inj) 20 mg DAILY IV PUSH Last administered on 08/18/16 09:29 ; Start 08/18/16 at 09:00 Regadenoson (Lexiscan Inj) 0.4 mg STK-MED ONCE .ROUTE Last administered on 08/18 09:22; Start 08/18/16 at 09:22; Stop 08/18/16 at 09:23; Status DC Aminophylline (Aminophylline Inj) 250 mg STK-MED ONCE .ROUTE Last administered on 08/18/16 10:45; Start 08/18/16 at 10:45; Stop 08/18/16 at 10:46; Status DC Other Results Laboratory Tests Test 08/18/16 05:30 White Blood Count 5.0 TH/MM3 Red Blood Count 4.25 MIL/MM3 Hemoglobin 12.1 GM/DL Hematocrit 37.8 % Mean Corpuscular Volume 88.8 FL Mean Corpuscular Hemoglobin 28.5 PG Mean Corpuscular Hemoglobin 32.1 % Concent Red Cell Distribution Width 16.9 % Platelet Count 137 TH/MM3 Mean Platelet Volume 9.4 FL Neutrophils (%) (Auto) 71.9 % Lymphocytes (%) (Auto) 16.3 % Monocytes (%) (Auto) 9.6 % Eosinophils (%) (Auto) 1.0 % Basophils (%) (Auto) 1.2 % Neutrophils # (Auto) 3.6 TH/MM3 Lymphocytes # (Auto) 0.8 TH/MM3 Monocytes # (Auto) 0.5 TH/MM3 Eosinophils # (Auto) 0.0 TH/MM3 Basophils # (Auto) 0.1 TH/MM3 CBC Comment DIFF FINAL Differential Comment Laboratory Tests Test 08/16/16 08/16/16 08/17/16 08/18/16 17:13 21:17 07:00 05:30 Troponin I 0.02 NG/ML 0.02 NG/ML Total Creatine Kinase 138 U/L Creatine Kinase MB 6.4 NG/ML Thyroid Stimulating Hormone 5.490 uIU/ML 3rd Gen Sodium Level 137 MEQ/L 139 MEQ/L Potassium Level 4.8 MEQ/L 5.2 MEQ/L Chloride Level 107 MEQ/L 110 MEQ/L Carbon Dioxide Level 22.9 MEQ/L 20.6 MEQ/L Anion Gap 7 MEQ/L 8 MEQ/L Blood Urea Nitrogen 62 MG/DL 55 MG/DL Creatinine 2.91 MG/DL 2.57 MG/DL Estimat Glomerular Filtration 22 ML/MIN 25 ML/MIN Rate Random Glucose 142 MG/DL 146 MG/DL Calcium Level 8.6 MG/DL 8.5 MG/DL Total Bilirubin 1.4 MG/DL 1.2 MG/DL Aspartate Amino Transf 13 U/L 10 U/L (AST/SGOT) Alanine Aminotransferase 35 U/L 29 U/L (ALT/SGPT) Alkaline Phosphatase 92 U/L 89 U/L Total Protein 6.3 GM/DL 5.8 GM/DL Albumin 3.5 GM/DL 3.2 GM/DL Free Thyroxine 1.10 NG/DL Phosphorus Level 3.0 MG/DL Magnesium Level 2.4 MG/DL Objective Remarks Last Impressions Renal Ultrasound 08/17/16 0000 Signed Impressions: Service Date/Time: Wednesday, August 17, 2016 11:26 - CONCLUSION: 1. Normal ultrasound appearance of the right lower quadrant renal transplant with normal vascular assessment. 2. Chronic fluid collection at the lower pole of the transplant kidney measuring up to 3.5 cm. It has slightly decreased in size since the prior study. 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 Derrek Byrd MD Myocardial Perfusion Scan Nuc Med 08/17/16 0000 Signed Impressions: Service Date/Time: Wednesday, August 17, 2016 11:42 - CONCLUSION: Global hypokinesis and reduction in ejection fraction and no significant ischemia. RISK CATEGORY: Intermediate (1-3%% Annual Mortality Rate) Guillermo Frausto MD Foot MRI 08/17/16 0000 Signed Impressions: Service Date/Time: Wednesday, August 17, 2016 19:17 - CONCLUSION: Multilocular fluid intensity collection as described above which may reflect abscess. Skin thickening and subcutaneous edema is also present dorsally characteristic of cellulitis. No evidence of osteomyelitis Alejandro Morales MD Chest X-Ray 08/16/16 1114 Signed Impressions: Service Date/Time: August 11:58 - CONCLUSION: Changes most characteristic of congestive heart failure with pulmonary edema and small effusions now noted. Robin Reid MD Exam-Podiatry Constitutional General appearance: comfortable Nutritional status: normal Orientation: alert and oriented x3 Dermatological Exam Skin Temp - Right: Within Normal Limits Skin Texture - Right: Within Normal Limits Skin Elasticity - Right: Within Normal Limits Skin Tugor - Right: Within Normal Limits Hair Growth - Right: Within Normal Limits Pigmentation - Right: Within Normal Limits Skin Temp - Left: Within Normal Limits Skin Texture - Left: Within Normal Limits Skin Elasticity - Left: Within Normal Limits Skin Tugor - Left: Within Normal Limits Hair Growth - Left: Within Normal Limits Pigmentation - Left: Within Normal Limits Ulcers: Location/Measurements No redness to the forefoot. Less maceration to the third interspace. No fluctuance felt. Vascular/Lymphatic Exam R Dorsails Pedis: Palpable L Dorsails Pedis: Palpable R Posterior Tibial: Palpable L Posterior Tibial: Palpable Neurologic Exam Present on right: Tingling, Paraesthesia Present on left: Tingling, Paraesthesia Muscle Strength Dorsiflexion (Right): Normal Plantarflexion (Right): Normal Inversion (Right): Normal Eversion (Right): Normal Digital (Right): Normal Dorsiflexion (Left): Normal Plantarflexion (Left): Normal Inversion (Left): Normal Eversion (Left): Normal Digital (Left): Normal Foot Range of Motion Dorsiflexion (Right): Normal Plantarflexion (Right): Normal Inversion (Right): Normal Eversion (Right): Normal Digital (Right): Normal Dorsiflexion (Left): Normal Plantarflexion (Left): Normal Inversion (Left): Normal Eversion (Left): Normal Digital (Left): Normal Joint Instability Bunion (Left): Non-painful Bunion, Crepitus 1st MPJ Assessment & Plan Diagnosis: (1) Abscess of left foot Status: Acute A/P Patient will be taken to the OR on Saturday morning at 8 AM for I&D of abscess left foot. Explained the patient wrists, benefits and alternatives the planned procedures. He understands the wound may need to be left open and packed. If that is the case we can follow him in the wound center. Preop consent and orders written. Chung Matos DPM Aug 18, 2016 13:54
--- NOTE | 2016-08-18 15:16 | HHI.PR ---
Subjective Remarks With this much improved, denies chest pain. Edema lower extremities as resolved. Denies fevers or chills Denies cough Objective Vitals Vital Signs Date Time Temp Pulse Resp B/P Pulse Ox O2 Delivery O2 Flow Rate FiO2 08/18/16 08:00 97.7 62 18 173/77 94 08/18/16 04:00 97.9 67 16 163/70 91 08/18/16 00:00 97.8 70 16 150/66 94 08/17/16 20:00 97.8 75 18 191/84 98 08/17/16 18:08 70 08/17/16 16:07 20 08/17/16 16:00 98.0 63 20 173/86 94 I/O 08/17/16 08/17/16 08/17/16 08/18/16 08/18/16 08/18/16 07:00 15:00 23:00 07:00 15:00 23:00 Intake Total 1280 ml 600 ml 100 ml Output Total 100 ml 1050 ml 450 ml 475 ml Balance -100 ml 230 ml 150 ml -375 ml Intake Oral 1280 ml 600 ml 100 ml Output Urine Total 100 ml 1050 ml 450 ml 475 ml # Voids 3 # Bowel Movements 1 0 0 Result Diagram: 08/18/16 0530 08/18/16 0530 Imaging Last Impressions Renal Ultrasound 08/17/16 0000 Signed Impressions: Service Date/Time: Wednesday, August 17, 2016 11:26 - CONCLUSION: 1. Normal ultrasound appearance of the right lower quadrant renal transplant with normal vascular assessment. 2. Chronic fluid collection at the lower pole of the transplant kidney measuring up to 3.5 cm. It has slightly decreased in size since the prior study. 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 Derrek Byrd MD Myocardial Perfusion Scan Nuc Med 08/17/16 0000 Signed Impressions: Service Date/Time: Wednesday, August 17, 2016 11:42 - CONCLUSION: Global hypokinesis and reduction in ejection fraction and no significant ischemia. RISK CATEGORY: Intermediate (1-3%% Annual Mortality Rate) Guillermo Frausto MD Foot MRI 08/17/16 0000 Signed Impressions: Service Date/Time: Wednesday, August 17, 2016 19:17 - CONCLUSION: Multilocular fluid intensity collection as described above which may reflect abscess. Skin thickening and subcutaneous edema is also present dorsally characteristic of cellulitis. No evidence of osteomyelitis Alejandro Morales MD Chest X-Ray 08/16/16 1114 Signed Impressions: Service Date/Time: August 11:58 - CONCLUSION: Changes most characteristic of congestive heart failure with pulmonary edema and small effusions now noted. Robin Reid MD Objective Remarks GENERAL: This is a well-nourished, well-developed patient, in no apparent distress. SKIN: No rashes, ecchymoses or lesions. Cool and dry. HEAD: Atraumatic. Normocephalic. No temporal or scalp tenderness. EYES: Pupils equal round and reactive. Extraocular motions intact. No scleral icterus. No injection or drainage. ENT: Nose without bleeding, purulent drainage or septal hematoma. Throat without erythema, tonsillar hypertrophy or exudate. Uvula midline. Airway patent. NECK: Trachea midline. No JVD or lymphadenopathy. Supple, nontender, no meningeal signs. CARDIOVASCULAR: Regular rate and rhythm without murmurs, gallops, or rubs. RESPIRATORY: Clear to auscultation. Breath sounds equal bilaterally. No wheezes , rales, or rhonchi. GASTROINTESTINAL: Abdomen soft, non-tender, mildly distended. No hepato- splenomegaly, or palpable masses. No guarding. (+) improved ascites MUSCULOSKELETAL: Extremities without clubbing, cyanosis, or edema. No joint tenderness, effusion, or edema noted. No calf tenderness. Negative Homans sign bilaterally. Left foot is covered by some dressings which are C/D/I. There is no edema, erythema or tenderness on palpation. NEUROLOGICAL: Awake and alert. Cranial nerves II through XII intact. Motor and sensory grossly within normal limits. Five out of 5 muscle strength in all muscle groups. Normal speech. Medications and IVs Current Medications Medications (Trade) Dose Ordered Sig/Rai Route Start Time Stop Time Status Last Admin (NS Flush) 2 ml UNSCH PRN IV FLUSH 08/16/16 15:15 (NS Flush) 2 ml BID IV FLUSH 08/16/16 21:00 08/18/16 09:29 (Heparin Inj) 5,000 units Q8H SQ 08/16/16 16:00 08/18/16 09:28 (Colace) 100 mg BID PO 08/16/16 21:00 08/18/16 09:27 ([place] 10-325 Mg) 1 tab TID PRN PO 08/16/16 17:45 08/18/16 09:45 (Levemir Inj) 22 units HS SQ 08/16/16 21:00 Hold 08/16/16 20:59 (Imdur) 30 mg DAILY PO 08/17/16 09:00 08/18/16 09:27 (Ativan) 3 mg HS PO 08/16/16 21:00 08/17/16 22:14 (Theragran M Tab) 1 tab DAILY PO 08/17/16 09:00 08/18/16 09:26 (Cellcept) 500 mg BID@,18 PO 08/16/16 18:00 08/18/16 06:37 (Miralax) 17 gm DAILY PRN PO 08/16/16 17:45 (Deltasone) 5 mg DAILY PO 08/17/16 09:00 08/17/16 08:52 (Lyrica) 25 mg TID PO 08/16/16 18:00 08/18/16 12:34 (Sodium Bicarbonate) 650 mg BIDPC PO 08/16/16 18:00 08/18/16 09:27 (Ferrous Sulfate) 325 mg DAILY PO 08/17/16 09:00 08/18/16 09:26 Patient Own Medication PT OWN MED: Linaclot... DAILY PRN PO 08/16/16 17:45 (Bactrim Ds 800-160 Mg) 1 tab BID PO 08/16/16 21:00 08/18/16 09:26 (D50w (Vial) Inj) 25 ml UNSCH PRN IV PUSH 08/17/16 05:00 (Glucagon Inj) 1 mg UNSCH PRN OTHER 08/17/16 05:00 (Procardia Xl) 30 mg BID PO 08/17/16 21:00 08/18/16 09:27 (Catapres) 0.1 mg Q8H PO 08/18/16 17:00 (Prograf) 3 mg DAILY@,18 PO 08/18/16 18:00 Urinary Catheter: No Vascular Central Line Catheter: No A/P Problem List: (1) Acute on chronic diastolic (congestive) heart failure ICD Code: I50.33 Status: Resolved (2) Hypertension ICD Code: I10 Status: Chronic (3) Hyperkalemia ICD Code: E87.5 Status: Acute (4) DM (diabetes mellitus) ICD Code: E11.9 Status: Chronic (5) Kidney transplanted ICD Code: Z94.0 Status: Chronic (6) ESRD (end stage renal disease) ICD Code: N18.6 Status: Chronic (7) Abscess of left foot ICD Code: L02.612 Status: Acute (8) Anasarca ICD Code: R60.1 Status: Acute Plan: Patient with pulmonary edema, ascites and bilateral extremity edema which is improving on IV diuretics. Continue with IV diuretics. 08/18 anasarca much improved. I will discontinue IV Lasix and start oral Lasix. (9) FRANTZ (acute kidney injury) ICD Code: N17.9 Status: Acute Plan: Patient with elevated creatinine from baseline which is usually 2.2 up to 2.9. Daycare improving now down to 2.5. Continue to follow nephrology recommendations. Assessment and Plan (1) Acute on chronic diastolic (congestive) heart failure Plan: Placed the patient under observation, the patient status post IV Lasix in the emergency department with good response Last echocardiogram obtained on 04/10/16 showed an EF of 55-60% Cardiology consulted, echocardiogram performed today shows a moderately decreased ejection fraction of 35% with diffuse hypokinesis. The patient will go for Lexiscan. Appreciate nephrology recommendations, recommended backing off from IV diuretics due to increase in BUN/creatinine. I will decrease the dose of IV Lasix from 40-20 mg IV daily. 08/18 Lexiscan showed global hypokinesis and reduction in ejection fraction but no significant ischemia. I will DC labetalol and start the patient on 25 mg by mouth twice a day of oral or carvedilol as recommended by cardiology. Also DC IV Lasix and start oral Lasix. (2) uncontrolled Hypertension Plan: Patient seems to have a very elevated and uncontrolled systolic blood pressure with a blood pressure of into the 190s. I will continue home antihypertensive medications which include labetalol, clonidine, nifedipine. Continue clonidine as needed. Continue Cardura 2 mg at bedtime. Patient started on 30 mg of Procardia by mouth twice a day as per nephrology. 08/18 blood pressure still very elevated. I will switch clonidine 0.1 mg daily to 3 times a day. I will also discontinue labetalol and start the patient on carvedilol 25 mg by mouth twice a day as recommended by cotton wringer. Continue to monitor vital signs. Continue clonidine as needed. (3) Hyperkalemia Plan: Likely due to decreased potassium excretion. Potassium 5.2, mild hyperkalemia. Continue to monitor BMP. IV diuretics should help lowering the potassium. 08/17 hyperkalemia resolved. Potassium now the normal range. Continue to monitor BMP. 08/18 mild hyperkalemia 5.2. Continue to monitor BMP. (4) DM (diabetes mellitus) Plan: Continue home medications which include SSI with insulin NovoLog and long -acting insulin Lantus. Monitor Accu-Cheks. 08/16 hold long-acting insulin secondary to hypoglycemia. Continue SSI with insulin NovoLog and to monitor Accu-Cheks. (5) Kidney transplanted Plan: Continue immunosuppressive therapy with tacrolimus and mycophenolate. Renal ultrasound of the transplant kidney shows normal ultrasound appearance of the right lower quadrant renal transplant with normal vascular assessment. Chronic fluid collection of the lower pole of the transplant kidney measuring up to 2.5 cm. Which is slightly decreased in size since the prior study. 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 (6) ESRD (end stage renal disease) Plan: Status post kidney transplant. As above. (7) Abscess of left foot Plan: Patient had a drainage of the left foot abscess on 08/10/16 which wound culture grew MSSA. Continue by mouth Bactrim. I will order podiatry consultation. 08/17 appreciate podiatry evaluation and recommendations. MRI of the left foot ordered to rule out abscess. 08/18 MRI of the left foot shows abscess. As the podiatry documentation there are plans to take the patient to the OR for incision and debridement tomorrow a.m. Discharge Planning Continue to monitor in the medical floor. For I&D in a.m. Problem Qualifiers (1) Hypertension: Qualified Code: I10 - Essential hypertension (2) DM (diabetes mellitus): Santos Barillas MD Aug 18, 2016 15:16
--- NOTE | 2016-08-18 17:46 | HHI.NPPN ---
Subjective History of Present Illness 66 year old with kidney transplant l foot infection Review of Systems General Constitutional: Fatigue Musculoskeletal MS: Pain/Stiffness Objective Data Data 08/17/16 08/18/16 19:00 07:00 Intake Total 1280 ml 700 ml Output Total 1050 ml 925 ml Balance 230 ml -225 ml Intake Oral 1280 ml 700 ml Output Urine Total 1050 ml 925 ml # Bowel Movements 1 0 Vital Signs Date Time Temp Pulse Resp B/P Pulse Ox O2 Delivery O2 Flow Rate FiO2 08/18/16 12:00 97.7 61 18 148/67 96 08/18/16 08:11 56 08/18/16 08:00 97.7 62 18 173/77 94 08/18/16 04:00 97.9 67 16 163/70 91 08/18/16 00:00 97.8 70 16 150/66 94 08/17/16 20:00 97.8 75 18 191/84 98 08/17/16 18:08 70 -: 08/18/16 0530 08/18/16 0530 Physical Exam General Appearance: Well Developed, Well Nourished Pulmonary Resp Exam: Clear Bilaterally, Breath Sounds Equal Cardiology CV Exam: Regular, Normal Sinus Rhythm Gastrointestinal/Abdomen GI Exam: Soft, Non-Tender, Bowel Sounds Present Integumentary Skin Exam: Lesion(s) Extremeties Extremities Exam: No Edema Assessment/Plan Problem List: (1) Kidney transplant status, cadaveric Plan: Patient US at baseline no obstruction Cr 2.5 improve Lasix dose decreased going for foot surgery in am (2) Diastolic heart failure Plan: blood pressure improved (3) DM (diabetes mellitus) Plan: Monitor (4) Abscess of left foot 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
[2016-08-18] MEDS: TACROLIMUS 1 MG CAP PO SCH (18:00)
[2016-08-18] MEDS: predniSONE 5 MG TAB PO SCH (18:34)
[2016-08-18] MEDS: LORazepam 1 MG TAB PO SCH (22:04)
[2016-08-19] VITALS (10 sets, daily range): BP systolic 153–178; BP diastolic 68–84; PULSE 54–70; RESP 18–20; TEMP 97.5–98.8; O2SAT 90–96
[2016-08-19] MEDS: cloNIDine HCL 0.1 MG TAB PO SCH ×4 (00:17→23:16)
[2016-08-19] MEDS: TACROLIMUS 1 MG CAP PO SCH ×2 (06:13→17:32)
[2016-08-19] MEDS: MYCOPHENOLATE MOFETIL 500 MG TAB PO SCH ×2 (06:13→17:32)
[2016-08-19] MEDS: INSULIN ASPART SUPPLEMENTAL SCALE SQ SCH ×4 (06:16→21:30)
[2016-08-19 07:16] LABS: HEMATOCRIT 37.2 % (39.0-51.0); MEAN CELL VOLUME 87.9 FL (80.0-100.0); MEAN CORPUSCULAR HEMOGLOBIN 29.4 PG (27.0-34.0); MEAN CORPUSCULAR HGB CONC 33.5 % (32.0-36.0); PLATELET COUNT 153 TH/MM3 (150-450); RED BLOOD COUNT 4.23 MIL/MM3 (4.50-5.90); RED CELL DISTRIBUTION WIDTH 16.2 % (11.6-17.2); REVIEW FLAG FINAL; WHITE BLOOD COUNT 5.4 TH/MM3 (4.0-11.0)
[2016-08-19 07:27] LABS: BICARBONATE 20.3 MEQ/L (21.0-32.0); POTASSIUM 5.7 MEQ/L (3.5-5.1)
[2016-08-19] MEDS ORDERED: BUPIVACAINE HCL PF 0.5% 30 ML VIAL ONE (07:46)
[2016-08-19] MEDS: HEPARIN SODIUM - SQ 10,000 UNITS/ML VIAL SQ SCH ×3 (08:00→23:16)
[2016-08-19] MEDS: ISOSORBIDE MONONITRATE 30 MG TAB PO SCH (08:32)
[2016-08-19] MEDS: NIFEdipine 30 MG SUSTAINED RELEASE TAB PO SCH ×2 (08:32→21:29)
[2016-08-19] MEDS: SODIUM CHLORIDE 0.9% FLUSH 10 ML FLUSH IV FLUSH SCH ×2 (09:00→21:28)
--- NOTE | 2016-08-19 09:31 | PD.OP ---
Operative Report Date of Surgery: Aug 19, 2016 Preoperative Diagnosis: (1) Abscess of left foot Postoperative Diagnosis: (1) Abscess of left foot Procedure: Incision and drainage of abscess third interspace left foot Anesthesia: LMA Surgeon: Chung Matos DPM Piece Cutter(s): None Operation and Findings: Patient is brought to the operating room placed on the operating table in a supine position. A pneumatic ankle cuff was placed around the patient's left ankle after adequate web roll padding. Patient was given general inhalation anesthesia. The left foot was prepped and draped in the usual sterile manner. The left foot was elevated above the operating table. The appropriate timeout was performed and the pneumatic ankle cuff was inflated to 250 mmHg. Total cuff time was 6 minutes. Left foot was lowered to the operating table and attention was directed to the left foot in the third interspace. Preoperative MRI showed an abscess in the interspace. At this time a 3 cm linear incision was made dorsally into the third interspace. Some yellowish staph-appearing purulent material was drained and a culture and sensitivity was obtained. The area was explored for any remaining abscesses. There is flushed with copious amounts of sterile saline. The wound was packed open with Maxorb extra AG. 4 x 4's and Ciaran were applied along with an marc bandage for protection. Estimated blood loss was less than 5 cc. Instrument and sponge count were noted to be correct. Culture and sensitivity was sent. Patient tolerated the procedures and anesthesia well and left the OR to PACU in apparent satisfactory condition with all vital signs stable and the vascular status to all digits of the left foot. Chung Matos DPM Aug 19, 2016 09:31
[2016-08-19] MEDS ORDERED: SODIUM CHLORIDE 0.9% FLUSH 10 ML FLUSH IV FLUSH PRN (09:45)
[2016-08-19] MEDS ORDERED: MORPHINE SULFATE 4 MG/ML INJ IV PRN (09:45)
[2016-08-19] MEDS ORDERED: oxyCODONE/ACETAMINOPHEN 5 MG/325 MG TAB PO PRN (09:45)
[2016-08-19] MEDS ORDERED: NALOXONE HCL 0.4 MG/ML AMP IV PRN (09:45)
[2016-08-19] MEDS ORDERED: Post-op Orders (for Pharmacy) MISC XX ONE (09:45)
[2016-08-19] MEDS: SULFAMETHOXAZOLE-TRIMETHOPRIM DS 800-160 MG TAB PO SCH ×2 (11:19→21:29)
[2016-08-19] MEDS: predniSONE 5 MG TAB PO SCH (11:19)
[2016-08-19] MEDS: PREGABALIN 25 MG CAP PO SCH ×3 (11:19→17:32)
[2016-08-19] MEDS: DOCUSATE SODIUM 100 MG CAP PO SCH ×2 (11:19→21:29)
[2016-08-19] MEDS: FERROUS SULFATE 325 MG (65 MG ELEMENTAL IRON) TAB PO SCH (11:20)
[2016-08-19] MEDS: MULTIVITAMINS/MINERALS THERAPEUTIC TAB PO SCH (11:20)
[2016-08-19] MEDS: CARVEDILOL 6.25 MG TAB PO SCH ×2 (11:24→21:29)
[2016-08-19] MEDS ORDERED: ONDANSETRON HCL 4 MG/2 ML VIAL IV PUSH ONE (12:00)
[2016-08-19] MEDS ORDERED: PROPOFOL 200 MG/20 ML AMP IV ONE (12:00)
--- NOTE | 2016-08-19 14:17 | HHI.NPPN ---
Subjective History of Present Illness 66 year old with kidney transplant l foot infection Review of Systems General Constitutional: Fatigue Musculoskeletal MS: Pain/Stiffness Objective Data Data 08/18/16 08/19/16 19:00 07:00 Intake Total 1200 ml 120 ml Output Total 1500 ml Balance -300 ml 120 ml Intake Oral 1200 ml 120 ml Output Urine Total 1500 ml # Voids 5 # Bowel Movements 2 Vital Signs Date Time Temp Pulse Resp B/P Pulse Ox O2 Delivery O2 Flow Rate FiO2 08/19/16 12:00 97.9 57 20 153/70 94 08/19/16 10:15 97.0 59 14 153/74 93 Nasal Cannula 3 08/19/16 10:00 58 14 151/70 95 Nasal Cannula 3 08/19/16 09:45 60 14 155/71 95 Nasal Cannula 3 08/19/16 09:32 97.5 64 14 147/63 96 Nasal Cannula 3 08/19/16 08:05 97.5 69 20 177/84 93 08/19/16 04:00 97.8 66 18 168/78 93 08/19/16 00:00 98.0 54 18 156/72 93 08/18/16 20:00 97.9 62 18 159/76 94 08/18/16 20:00 60 08/18/16 16:00 97.7 61 18 178/79 96 -: 08/19/16 0621 08/19/16 0621 Microbiology 08/19/16 Gram Stain, Received Pending 08/19/16 Wound Culture, Received Pending Physical Exam General Appearance: Well Developed, Well Nourished Pulmonary Resp Exam: Clear Bilaterally, Breath Sounds Equal Cardiology CV Exam: Regular, Normal Sinus Rhythm Gastrointestinal/Abdomen GI Exam: Soft, Non-Tender, Bowel Sounds Present Integumentary Skin Exam: Lesion(s) Extremeties Extremities Exam: No Edema Assessment/Plan Problem List: (1) Kidney transplant status, cadaveric Plan: Patient US at baseline no obstruction Cr 2.7 K 5.7 s/p left foot wound debridement he can take Kayexalate at home if discharged Lasix dose decreased (2) Diastolic heart failure Plan: blood pressure improved (3) DM (diabetes mellitus) Plan: Monitor (4) Abscess of left foot 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
--- NOTE | 2016-08-19 16:52 | HHI.PR ---
Subjective Remarks Creatinine slightly up 2.5 to 2.7 Patient denies cp/sob denies fevers or chills sob much improved Objective Vitals Vital Signs Date Time Temp Pulse Resp B/P Pulse Ox O2 Delivery O2 Flow Rate FiO2 08/19/16 14:51 90 Nasal Cannula 21 08/19/16 12:00 97.9 57 20 153/70 94 08/19/16 10:15 97.0 59 14 153/74 93 Nasal Cannula 3 08/19/16 10:00 58 14 151/70 95 Nasal Cannula 3 08/19/16 09:45 60 14 155/71 95 Nasal Cannula 3 08/19/16 09:32 97.5 64 14 147/63 96 Nasal Cannula 3 08/19/16 08:05 97.5 69 20 177/84 93 08/19/16 04:00 97.8 66 18 168/78 93 08/19/16 00:00 98.0 54 18 156/72 93 08/18/16 20:00 97.9 62 18 159/76 94 08/18/16 20:00 60 I/O 08/18/16 08/18/16 08/18/16 08/19/16 08/19/16 08/19/16 07:00 15:00 23:00 07:00 15:00 23:00 Intake Total 100 ml 1200 ml 120 ml 300 ml Output Total 475 ml 1500 ml 5 ml Balance -375 ml -300 ml 120 ml 295 ml Intake Oral 100 ml 1200 ml 120 ml 50 ml IV Total 0 ml Other 250 ml Output Urine Total 475 ml 1500 ml Estimated Blood Loss 5 ml # Voids 5 0 # Bowel Movements 0 2 Result Diagram: 08/19/16 0621 08/19/16 0621 Imaging Last Impressions Renal Ultrasound 08/17/16 0000 Signed Impressions: Service Date/Time: Wednesday, August 17, 2016 11:26 - CONCLUSION: 1. Normal ultrasound appearance of the right lower quadrant renal transplant with normal vascular assessment. 2. Chronic fluid collection at the lower pole of the transplant kidney measuring up to 3.5 cm. It has slightly decreased in size since the prior study. 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 Derrek Byrd MD Myocardial Perfusion Scan Nuc Med 08/17/16 0000 Signed Impressions: Service Date/Time: Wednesday, August 17, 2016 11:42 - CONCLUSION: Global hypokinesis and reduction in ejection fraction and no significant ischemia. RISK CATEGORY: Intermediate (1-3%% Annual Mortality Rate) Guillermo Frausto MD Foot MRI 08/17/16 0000 Signed Impressions: Service Date/Time: Wednesday, August 17, 2016 19:17 - CONCLUSION: Multilocular fluid intensity collection as described above which may reflect abscess. Skin thickening and subcutaneous edema is also present dorsally characteristic of cellulitis. No evidence of osteomyelitis Alejandro Morales MD Chest X-Ray 08/16/16 1114 Signed Impressions: Service Date/Time: August 11:58 - CONCLUSION: Changes most characteristic of congestive heart failure with pulmonary edema and small effusions now noted. Robin Reid MD Objective Remarks GENERAL: This is a well-nourished, well-developed patient, in no apparent distress. SKIN: No rashes, ecchymoses or lesions. Cool and dry. HEAD: Atraumatic. Normocephalic. No temporal or scalp tenderness. EYES: Pupils equal round and reactive. Extraocular motions intact. No scleral icterus. No injection or drainage. ENT: Nose without bleeding, purulent drainage or septal hematoma. Throat without erythema, tonsillar hypertrophy or exudate. Uvula midline. Airway patent. NECK: Trachea midline. No JVD or lymphadenopathy. Supple, nontender, no meningeal signs. CARDIOVASCULAR: Regular rate and rhythm without murmurs, gallops, or rubs. RESPIRATORY: Clear to auscultation. Breath sounds equal bilaterally. No wheezes , rales, or rhonchi. GASTROINTESTINAL: Abdomen soft, non-tender, mildly distended. No hepato- splenomegaly, or palpable masses. No guarding. (+) improved ascites MUSCULOSKELETAL: Extremities without clubbing, cyanosis, or edema. No joint tenderness, effusion, or edema noted. No calf tenderness. Negative Homans sign bilaterally. Left foot is covered by dressing and on a boot. NEUROLOGICAL: Awake and alert. Cranial nerves II through XII intact. Motor and sensory grossly within normal limits. Five out of 5 muscle strength in all muscle groups. Normal speech. Procedures Status post incision and drainage of abscess in the left foot. Medications and IVs Current Medications Medications (Trade) Dose Ordered Sig/Rai Route Start Time Stop Time Status Last Admin (NS Flush) 2 ml UNSCH PRN IV FLUSH 08/16/16 15:15 (NS Flush) 2 ml BID IV FLUSH 08/16/16 21:00 08/19/16 09:00 (Heparin Inj) 5,000 units Q8H SQ 08/16/16 16:00 08/19/16 16:00 (Colace) 100 mg BID PO 08/16/16 21:00 08/19/16 11:19 (Levemir Inj) 22 units HS SQ 08/16/16 21:00 Hold 08/16/16 20:59 (Imdur) 30 mg DAILY PO 08/17/16 09:00 08/19/16 08:32 (Ativan) 3 mg HS PO 08/16/16 21:00 08/18/16 22:04 (Theragran M Tab) 1 tab DAILY PO 08/17/16 09:00 08/19/16 11:20 (Cellcept) 500 mg BID@,18 PO 08/16/16 18:00 08/19/16 17:32 (Miralax) 17 gm DAILY PRN PO 08/16/16 17:45 (Deltasone) 5 mg DAILY PO 08/17/16 09:00 08/19/16 11:19 (Lyrica) 25 mg TID PO 08/16/16 18:00 08/19/16 17:32 (Sodium Bicarbonate) 650 mg BIDPC PO 08/16/16 18:00 08/19/16 17:33 (Ferrous Sulfate) 325 mg DAILY PO 08/17/16 09:00 08/19/16 11:20 Patient Own Medication PT OWN MED: Linaclot... DAILY PRN PO 08/16/16 17:45 (Bactrim Ds 800-160 Mg) 1 tab BID PO 08/16/16 21:00 08/19/16 11:19 (D50w (Vial) Inj) 25 ml UNSCH PRN IV PUSH 08/17/16 05:00 (Glucagon Inj) 1 mg UNSCH PRN OTHER 08/17/16 05:00 (Procardia Xl) 30 mg BID PO 08/17/16 21:00 08/19/16 08:32 (Catapres) 0.1 mg Q8H PO 08/18/16 17:00 08/19/16 17:00 (Prograf) 3 mg DAILY@06,18 PO 08/18/16 18:00 08/19/16 17:32 (Percocet 5-325 Mg) 1 tab Q6H PRN PO 08/19/16 09:45 (Percocet 10-325 Mg) 1 tab Q6H PRN PO 08/19/16 09:45 (Morphine Inj) 4 mg Q3H PRN IV 08/19/16 09:45 (Narcan Inj) 0.4 mg UNSCH PRN IV 08/19/16 09:45 (Coreg) 6.25 mg BID PO 08/19/16 10:30 08/19/16 11:24 Urinary Catheter: No Vascular Central Line Catheter: No A/P Problem List: (1) Acute on chronic diastolic (congestive) heart failure ICD Code: I50.33 Status: Resolved (2) Hypertension ICD Code: I10 Status: Chronic (3) Hyperkalemia ICD Code: E87.5 Status: Acute (4) DM (diabetes mellitus) ICD Code: E11.9 Status: Chronic (5) Kidney transplanted ICD Code: Z94.0 Status: Chronic (6) ESRD (end stage renal disease) ICD Code: N18.6 Status: Chronic (7) Abscess of left foot ICD Code: L02.612 Status: Acute (8) Anasarca ICD Code: R60.1 Status: Acute (9) FRANTZ (acute kidney injury) ICD Code: N17.9 Status: Acute Assessment and Plan (1) Acute on chronic diastolic (congestive) heart failure Plan: Placed the patient under observation, the patient status post IV Lasix in the emergency department with good response Last echocardiogram obtained on 04/10/16 showed an EF of 55-60% Cardiology consulted, echocardiogram performed today shows a moderately decreased ejection fraction of 35% with diffuse hypokinesis. The patient will go for Lexiscan. Appreciate nephrology recommendations, recommended backing off from IV diuretics due to increase in BUN/creatinine. I will decrease the dose of IV Lasix from 40-20 mg IV daily. 08/18 Lexiscan showed global hypokinesis and reduction in ejection fraction but no significant ischemia. I will DC labetalol and start the patient on 25 mg by mouth twice a day of oral or carvedilol as recommended by cardiology. Also DC IV Lasix and start oral Lasix. 08/19 patient has been cleared by cardiology to be discharged. Continue carvedilol, oral Lasix. (2) uncontrolled Hypertension Plan: Patient seems to have a very elevated and uncontrolled systolic blood pressure with a blood pressure of into the 190s. I will continue home antihypertensive medications which include labetalol, clonidine, nifedipine. Continue clonidine as needed. Continue Cardura 2 mg at bedtime. Patient started on 30 mg of Procardia by mouth twice a day as per nephrology. 08/18 blood pressure still very elevated. I will switch clonidine 0.1 mg daily to 3 times a day. I will also discontinue labetalol and start the patient on carvedilol 25 mg by mouth twice a day as recommended by service center appraiser. Continue to monitor vital signs. Continue clonidine as needed. 08/19 blood pressure with improved control however still elevated. I will increase clonidine to 0.2 mg 3 times a day. Continue carvedilol 12.5 mg twice a day. (3) Hyperkalemia Plan: Likely due to decreased potassium excretion. Potassium 5.2, mild hyperkalemia. Continue to monitor BMP. IV diuretics should help lowering the potassium. 08/17 hyperkalemia resolved. Potassium now the normal range. Continue to monitor BMP. 08/18 mild hyperkalemia 5.2. Continue to monitor BMP. 08/19 potassium today 5.7. I will order Reglan insulin IV and Kayexalate. Continue to monitor BMP. (4) DM (diabetes mellitus) Plan: Continue home medications which include SSI with insulin NovoLog and long -acting insulin Lantus. Monitor Accu-Cheks. 08/16 hold long-acting insulin secondary to hypoglycemia. Continue SSI with insulin NovoLog and to monitor Accu-Cheks. (5) Kidney transplanted Plan: Continue immunosuppressive therapy with tacrolimus and mycophenolate. Renal ultrasound of the transplant kidney shows normal ultrasound appearance of the right lower quadrant renal transplant with normal vascular assessment. Chronic fluid collection of the lower pole of the transplant kidney measuring up to 2.5 cm. Which is slightly decreased in size since the prior study. 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 (6) ESRD (end stage renal disease) Plan: Status post kidney transplant. As above. (7) Abscess of left foot Plan: Patient had a drainage of the left foot abscess on 08/10/16 which wound culture grew MSSA. Continue by mouth Bactrim. I will order podiatry consultation. 08/17 appreciate podiatry evaluation and recommendations. MRI of the left foot ordered to rule out abscess. 08/18 MRI of the left foot shows abscess. As the podiatry documentation there are plans to take the patient to the OR for incision and debridement tomorrow a.m. 08/19 patient is status post incision and drainage of left foot abscess. Management as per orthopedic surgery. Discharge Planning Continue to monitor in the medical floor. Pending improvement of potassium, clearance to be discharged by podiatry. Problem Qualifiers (1) Hypertension: Qualified Code: I10 - Essential hypertension (2) DM (diabetes mellitus): Santos Barillas MD Aug 19, 2016 16:52
[2016-08-19] MEDS: SODIUM BICARBONATE 650 MG TAB PO SCH (17:33)
[2016-08-19] MEDS ORDERED: SODIUM POLYSTYRENE SULFONATE SUSP 15 GM/60 ML CUP PO ONE (18:30)
[2016-08-19] MEDS ORDERED: INSULIN HUMAN REGULAR 1,000 UNITS/10 ML VIAL IV PUSH ONE (18:30)
[2016-08-19] MEDS ORDERED: SODIUM CHLORIDE 0.9% FLUSH 10 ML FLUSH IV FLUSH SCH (21:00)
[2016-08-19] MEDS: LORazepam 1 MG TAB PO SCH (21:29)
[2016-08-19] MEDS: oxyCODONE/ACETAMINOPHEN 10 MG/325 MG TAB PO PRN (23:16)
[2016-08-20] VITALS (9 sets, daily range): BP systolic 158–199; BP diastolic 68–88; PULSE 60–72; RESP 16–20; TEMP 97.2–98.8; O2SAT 92–96
[2016-08-20] MEDS: MYCOPHENOLATE MOFETIL 500 MG TAB PO SCH ×2 (05:51→17:41)
[2016-08-20] MEDS: TACROLIMUS 1 MG CAP PO SCH ×2 (05:51→17:41)
[2016-08-20] MEDS: INSULIN ASPART SUPPLEMENTAL SCALE SQ SCH ×4 (05:54→21:22)
[2016-08-20] MEDS: HEPARIN SODIUM - SQ 10,000 UNITS/ML VIAL SQ SCH ×3 (08:39→22:49)
[2016-08-20] MEDS: FERROUS SULFATE 325 MG (65 MG ELEMENTAL IRON) TAB PO SCH (08:40)
[2016-08-20] MEDS: PREGABALIN 25 MG CAP PO SCH ×3 (08:40→17:41)
[2016-08-20] MEDS: predniSONE 5 MG TAB PO SCH (08:40)
[2016-08-20] MEDS: NIFEdipine 30 MG SUSTAINED RELEASE TAB PO SCH ×2 (08:40→21:21)
[2016-08-20] MEDS: DOCUSATE SODIUM 100 MG CAP PO SCH ×2 (08:40→21:21)
[2016-08-20] MEDS: SODIUM BICARBONATE 650 MG TAB PO SCH ×2 (08:40→17:41)
[2016-08-20] MEDS: MULTIVITAMINS/MINERALS THERAPEUTIC TAB PO SCH (08:40)
[2016-08-20] MEDS: oxyCODONE/ACETAMINOPHEN 10 MG/325 MG TAB PO PRN ×3 (08:40→22:49)
[2016-08-20] MEDS: ISOSORBIDE MONONITRATE 30 MG TAB PO SCH (08:40)
[2016-08-20] MEDS: CARVEDILOL 6.25 MG TAB PO SCH (08:40)
[2016-08-20] MEDS: cloNIDine HCL 0.1 MG TAB PO SCH (08:40)
[2016-08-20] MEDS: SULFAMETHOXAZOLE-TRIMETHOPRIM DS 800-160 MG TAB PO SCH (08:40)
[2016-08-20] MEDS: SODIUM CHLORIDE 0.9% FLUSH 10 ML FLUSH IV FLUSH SCH ×2 (08:42→21:22)
--- NOTE | 2016-08-20 09:50 | PD.CARD.PN ---
Subjective Subjective Remarks Denies dyspnea, CP, dizziness, palpitations. Objective Medications Item Value Date Time Clonidine 0.1 mg 08/18/16 1700 (Catapres) Q8H/PO 08/19/16 0832 Nifedipine 30 mg 08/17/16 2100 (Procardia Xl) BID/PO 08/19/16 0832 Isosorbide 30 mg 08/17/16 0900 Mononitrate DAILY/PO 08/19/16 0832 (Imdur) Clonidine 0.2 mg 08/20/16 0900 (Catapres) Q8H/PO Carvedilol 6.25 mg 08/19/16 1030 (Coreg) BID/PO 08/20/16 0840 Nifedipine 30 mg 08/17/16 2100 (Procardia Xl) BID/PO 08/20/16 0840 Isosorbide 30 mg 08/17/16 0900 Mononitrate DAILY/PO 08/20/16 0840 (Imdur) Heparin Sodium 5,000 units 08/16/16 1600 (Porcine) Q8H/SQ 08/20/16 0839 (Heparin Inj) Vital Signs / I&O Vital Signs Date Time Temp Pulse Resp B/P Pulse Ox O2 Delivery O2 Flow Rate FiO2 08/20/16 08:38 63 08/20/16 08:00 97.3 72 16 199/88 94 08/20/16 04:00 97.3 63 20 171/70 93 08/20/16 00:00 98.8 70 18 178/68 96 08/19/16 20:47 60 08/19/16 20:00 98.3 67 20 171/78 92 08/19/16 18:01 66 08/19/16 16:00 98.1 56 20 171/75 94 08/19/16 14:51 90 Nasal Cannula 21 08/19/16 12:00 97.9 57 20 153/70 94 08/19/16 10:15 97.0 59 14 153/74 93 Nasal Cannula 3 08/19/16 10:00 58 14 151/70 95 Nasal Cannula 3 I/O 08/19/16 08/19/16 08/19/16 08/20/16 08/20/16 08/20/16 07:00 15:00 23:00 07:00 15:00 23:00 Intake Total 120 ml 300 ml 480 ml Output Total 5 ml Balance 120 ml 295 ml 480 ml Intake Oral 120 ml 50 ml 480 ml IV Total 0 ml Other 250 ml Estimated Blood Loss 5 ml # Voids 5 0 2 3 # Bowel Movements 0 0 Physical Exam GENERAL: Well developed, well nourished. No acute distress. HEENT: Jugular venous pressure is normal. CHEST: Lungs clear to auscultation bilaterally. Unlabored respiratory effort. CARDIAC: Regular rate and rhythm without S3, S4. II/ [place] base. Normal S2. ABDOMEN: Soft, nontender, no hepatosplenomegaly. Bowel sounds present. EXTREMITIES: No clubbing, cyanosis, or edema. Assessment and Plan Problem List: (1) CHF exacerbation Assessment and Plan: Doing well. EF by echo appears down to 35%; similar finding on nuclear stress test. Normal myocardial perfusion on nuclear stress test images. Rec continue carvedilol, increase dose. OK for discharge from a cardiac standpoint. (2) Hypertension Assessment and Plan: Overall suboptimal BP control. Rec increase carvedilol. (3) Chest pain Assessment and Plan: Overall very atypical CP's past 2-3 months. Normal nuclear stress testing. Code Status full code Discussed Condition With patient Problem Qualifiers (1) CHF exacerbation: Qualified Code: I50.23 - Acute on chronic systolic congestive heart failure (2) Hypertension: Qualified Code: I10 - Essential hypertension (3) Chest pain: Qualified Code: R07.9 - Chest pain, unspecified type Elijah Madden MD Aug 20, 2016 09:50
[2016-08-20 11:09] LABS: HEMATOCRIT 36.1 % (39.0-51.0); MEAN CELL VOLUME 88.7 FL (80.0-100.0); MEAN CORPUSCULAR HEMOGLOBIN 28.4 PG (27.0-34.0); PLATELET COUNT 131 TH/MM3 (150-450); RED BLOOD COUNT 4.07 MIL/MM3 (4.50-5.90); RED CELL DISTRIBUTION WIDTH 16.1 % (11.6-17.2); REVIEW FLAG FINAL; WHITE BLOOD COUNT 6.1 TH/MM3 (4.0-11.0)
[2016-08-20] MEDS: cloNIDine HCL 0.2 MG TAB PO SCH ×2 (11:18→17:41)
[2016-08-20 11:25] LABS: POTASSIUM 5.5 MEQ/L (3.5-5.1)
--- NOTE | 2016-08-20 12:50 | HHI.PR ---
Subjective Remarks Doesn't seem elevated. BP elevated Patient denies chest pain or shortness of breath Denies fevers or chills Pain on left lower extremity controlled. Objective Vitals Vital Signs Date Time Temp Pulse Resp B/P Pulse Ox O2 Delivery O2 Flow Rate FiO2 08/20/16 08:38 63 08/20/16 08:00 97.3 72 16 199/88 94 08/20/16 04:00 97.3 63 20 171/70 93 08/20/16 00:00 98.8 70 18 178/68 96 08/19/16 20:47 60 08/19/16 20:00 98.3 67 20 171/78 92 08/19/16 18:01 66 08/19/16 16:00 98.1 56 20 171/75 94 08/19/16 14:51 90 Nasal Cannula 21 I/O 08/19/16 08/19/16 08/19/16 08/20/16 08/20/16 08/20/16 07:00 15:00 23:00 07:00 15:00 23:00 Intake Total 120 ml 300 ml 480 ml Output Total 5 ml Balance 120 ml 295 ml 480 ml Intake Oral 120 ml 50 ml 480 ml IV Total 0 ml Other 250 ml Estimated Blood Loss 5 ml # Voids 5 0 2 3 # Bowel Movements 0 0 Result Diagram: 08/20/16 1044 08/20/16 1044 Imaging Last Impressions Renal Ultrasound 08/17/16 0000 Signed Impressions: Service Date/Time: Wednesday, August 17, 2016 11:26 - CONCLUSION: 1. Normal ultrasound appearance of the right lower quadrant renal transplant with normal vascular assessment. 2. Chronic fluid collection at the lower pole of the transplant kidney measuring up to 3.5 cm. It has slightly decreased in size since the prior study. 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 Derrek Byrd MD Myocardial Perfusion Scan Nuc Med 08/17/16 0000 Signed Impressions: Service Date/Time: Wednesday, August 17, 2016 11:42 - CONCLUSION: Global hypokinesis and reduction in ejection fraction and no significant ischemia. RISK CATEGORY: Intermediate (1-3%% Annual Mortality Rate) Guillermo Frausto MD Foot MRI 08/17/16 0000 Signed Impressions: Service Date/Time: Wednesday, August 17, 2016 19:17 - CONCLUSION: Multilocular fluid intensity collection as described above which may reflect abscess. Skin thickening and subcutaneous edema is also present dorsally characteristic of cellulitis. No evidence of osteomyelitis Alejandro Morales MD Chest X-Ray 08/16/16 1114 Signed Impressions: Service Date/Time: August 11:58 - CONCLUSION: Changes most characteristic of congestive heart failure with pulmonary edema and small effusions now noted. Robin Reid MD Objective Remarks GENERAL: This is a well-nourished, well-developed patient, in no apparent distress. SKIN: No rashes, ecchymoses or lesions. Cool and dry. HEAD: Atraumatic. Normocephalic. No temporal or scalp tenderness. EYES: Pupils equal round and reactive. Extraocular motions intact. No scleral icterus. No injection or drainage. ENT: Nose without bleeding, purulent drainage or septal hematoma. Throat without erythema, tonsillar hypertrophy or exudate. Uvula midline. Airway patent. NECK: Trachea midline. No JVD or lymphadenopathy. Supple, nontender, no meningeal signs. CARDIOVASCULAR: Regular rate and rhythm without murmurs, gallops, or rubs. RESPIRATORY: Clear to auscultation. Breath sounds equal bilaterally. No wheezes , rales, or rhonchi. GASTROINTESTINAL: Abdomen soft, non-tender, mildly distended. No hepato- splenomegaly, or palpable masses. No guarding. (+) improved ascites MUSCULOSKELETAL: Extremities without clubbing, cyanosis, or edema. No joint tenderness, effusion, or edema noted. No calf tenderness. Negative Homans sign bilaterally. Left foot is covered by dressing and on a boot. NEUROLOGICAL: Awake and alert. Cranial nerves II through XII intact. Motor and sensory grossly within normal limits. Five out of 5 muscle strength in all muscle groups. Normal speech. Procedures Status post incision and drainage of abscess in the left foot. Medications and IVs Current Medications Medications (Trade) Dose Ordered Sig/Rai Route Start Time Stop Time Status Last Admin (NS Flush) 2 ml UNSCH PRN IV FLUSH 08/16/16 15:15 (NS Flush) 2 ml BID IV FLUSH 08/16/16 21:00 08/20/16 08:42 (Heparin Inj) 5,000 units Q8H SQ 08/16/16 16:00 08/20/16 08:39 (Colace) 100 mg BID PO 08/16/16 21:00 08/20/16 08:40 (Levemir Inj) 22 units HS SQ 08/16/16 21:00 Hold 08/16/16 20:59 (Imdur) 30 mg DAILY PO 08/17/16 09:00 08/20/16 08:40 (Ativan) 3 mg HS PO 08/16/16 21:00 08/19/16 21:29 (Theragran M Tab) 1 tab DAILY PO 08/17/16 09:00 08/20/16 08:40 (Cellcept) 500 mg BID@ PO 08/16/16 18:00 08/20/16 05:51 (Miralax) 17 gm DAILY PRN PO 08/16/16 17:45 (Deltasone) 5 mg DAILY PO 08/17/16 09:00 08/20/16 08:40 (Lyrica) 25 mg TID PO 08/16/16 18:00 08/20/16 08:40 (Sodium Bicarbonate) 650 mg BIDPC PO 08/16/16 18:00 08/20/16 08:40 (Ferrous Sulfate) 325 mg DAILY PO 08/17/16 09:00 08/20/16 08:40 Patient Own Medication PT OWN MED: Linaclot... DAILY PRN PO 08/16/16 17:45 (Bactrim Ds 800-160 Mg) 1 tab BID PO 08/16/16 21:00 08/20/16 08:40 (D50w (Vial) Inj) 25 ml UNSCH PRN IV PUSH 08/17/16 05:00 (Glucagon Inj) 1 mg UNSCH PRN OTHER 08/17/16 05:00 (Procardia Xl) 30 mg BID PO 08/17/16 21:00 08/20/16 08:40 (Prograf) 3 mg DAILY@18 PO 08/18/16 18:00 08/20/16 05:51 (Percocet 5-325 Mg) 1 tab Q6H PRN PO 08/19/16 09:45 (Percocet 10-325 Mg) 1 tab Q6H PRN PO 08/19/16 09:45 08/20/16 08:40 (Morphine Inj) 4 mg Q3H PRN IV 08/19/16 09:45 (Narcan Inj) 0.4 mg UNSCH PRN IV 08/19/16 09:45 (Catapres) 0.2 mg Q8H PO 08/20/16 10:00 08/20/16 11:18 (Coreg) 12.5 mg BID PO 08/20/16 21:00 A/P Problem List: (1) Acute on chronic diastolic (congestive) heart failure ICD Code: I50.33 Status: Resolved (2) Hypertension ICD Code: I10 Status: Chronic (3) Hyperkalemia ICD Code: E87.5 Status: Acute (4) DM (diabetes mellitus) ICD Code: E11.9 Status: Chronic (5) Kidney transplanted ICD Code: Z94.0 Status: Chronic (6) ESRD (end stage renal disease) ICD Code: N18.6 Status: Chronic (7) Abscess of left foot ICD Code: L02.612 Status: Acute (8) Anasarca ICD Code: R60.1 Status: Acute (9) FRANTZ (acute kidney injury) ICD Code: N17.9 Status: Acute Assessment and Plan (1) Acute on chronic diastolic (congestive) heart failure Plan: Placed the patient under observation, the patient status post IV Lasix in the emergency department with good response Last echocardiogram obtained on 04/10/16 showed an EF of 55-60% Cardiology consulted, echocardiogram performed today shows a moderately decreased ejection fraction of 35% with diffuse hypokinesis. The patient will go for Lexiscan. Appreciate nephrology recommendations, recommended backing off from IV diuretics due to increase in BUN/creatinine. I will decrease the dose of IV Lasix from 40-20 mg IV daily. 08/18 Lexiscan showed global hypokinesis and reduction in ejection fraction but no significant ischemia. I will DC labetalol and start the patient on 25 mg by mouth twice a day of oral or carvedilol as recommended by cardiology. Also DC IV Lasix and start oral Lasix. 08/19 patient has been cleared by cardiology to be discharged. Continue carvedilol, oral Lasix. (2) uncontrolled Hypertension Plan: Patient seems to have a very elevated and uncontrolled systolic blood pressure with a blood pressure of into the 190s. I will continue home antihypertensive medications which include labetalol, clonidine, nifedipine. Continue clonidine as needed. Continue Cardura 2 mg at bedtime. Patient started on 30 mg of Procardia by mouth twice a day as per nephrology. 08/18 blood pressure still very elevated. I will switch clonidine 0.1 mg daily to 3 times a day. I will also discontinue labetalol and start the patient on carvedilol 25 mg by mouth twice a day as recommended by printed circuit board assembly repairer. Continue to monitor vital signs. Continue clonidine as needed. 08/20 blood pressure with improved control however still elevated. I will increase clonidine to 0.2 mg 3 times a day. Increase carvedilol 12.5 mg twice a day. (3) Hyperkalemia Plan: Likely due to decreased potassium excretion. Potassium 5.2, mild hyperkalemia. Continue to monitor BMP. IV diuretics should help lowering the potassium. 08/17 hyperkalemia resolved. Potassium now the normal range. Continue to monitor BMP. 08/18 mild hyperkalemia 5.2. Continue to monitor BMP. 08/19 potassium today 5.7. I will order regular insulin insulin IV and Kayexalate. Continue to monitor BMP. 08/20 potassium improved down to 5.5 however still elevated. I will give Kayexalate and oral MiraLAX since the patient states that he has sometimes to take a laxative with the Kayexalate. Continue to monitor BMP. (4) DM (diabetes mellitus) Plan: Continue home medications which include SSI with insulin NovoLog and long -acting insulin Lantus. Monitor Accu-Cheks. 08/16 hold long-acting insulin secondary to hypoglycemia. Continue SSI with insulin NovoLog and to monitor Accu-Cheks. 08/20 blood sugar has been consistently in the 200s range. I will resume long- acting insulin. (5) Kidney transplanted Plan: Continue immunosuppressive therapy with tacrolimus and mycophenolate. Renal ultrasound of the transplant kidney shows normal ultrasound appearance of the right lower quadrant renal transplant with normal vascular assessment. Chronic fluid collection of the lower pole of the transplant kidney measuring up to 2.5 cm. Which is slightly decreased in size since the prior study. 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 (6) ESRD (end stage renal disease) Plan: Status post kidney transplant. As above. (7) Abscess of left foot Plan: Patient had a drainage of the left foot abscess on 08/10/16 which wound culture grew MSSA. Continue by mouth Bactrim. I will order podiatry consultation. 08/17 appreciate podiatry evaluation and recommendations. MRI of the left foot ordered to rule out abscess. 08/18 MRI of the left foot shows abscess. As the podiatry documentation there are plans to take the patient to the OR for incision and debridement tomorrow a.m. 08/19 patient is status post incision and drainage of left foot abscess. Management as per orthopedic surgery. 08/20 discussed the case with Dr. Matos. We'll continue to monitor in the medical floor for now, continue IV antibiotics. The patient is suspected to stay for a couple days. As per Dr. Matos there was a lot of purulent material drained from the left foot. I will discontinue Bactrim and placed on IV vancomycin with IV Zosyn until culture results obtained. GI prophylaxis: I will add a PPI. DVT prophylaxis: Continue heparin subcutaneous, SCDs. Discharge Planning Continue to monitor in the medical floor. Pending improvement of potassium, clearance to be discharged by podiatry. Problem Qualifiers (1) Hypertension: Qualified Code: I10 - Essential hypertension (2) DM (diabetes mellitus): Santos Barillas MD Aug 20, 2016 12:50
--- NOTE | 2016-08-20 12:52 | PD.POD ---
Subjective Podiatric Problems 66-year-old diabetic presents with abscess in the third interspace of the left foot. MRI showed abscess formation. Patient had pus expressed from the area during surgery. Patient complaining of minimal pain or discomfort. Pain scale used: 0-10 numeric scale Pain score: 2 Remarks History of renal transplant. History of CHF. Patient was seen in the wound center on the and had pus expressed from the area. He was hospitalized for shortness of breath since that time. Past Med/Surg/Social History Past Medical History HEENT: REPORTS HX OF: Other HEENT history (Sam's syndrom) Endocrine: REPORTS HX OF: Diabetes mellitus Respiratory: REPORTS HX OF: COPD Genitourinary: REPORTS HX OF: Kidney failure, Other history (kidney transplant) Infectious disease: REPORTS HX OF: Chickenpox, Other inf disease history ( shingles) Psychiatric: REPORTS HX OF: Anxiety Disabilities: REPORTS HX OF: Hearing deficit Past Surgical History Cardiovascular: REPORTS HX OF: Other cardiac surgery Genitourinary: REPORTS HX OF: Other surgery (kidney transplant, stents ) Musculoskeletal: REPORTS HX OF: Other musculoskeletal srg (rt knee) Social History Smoking Status: Former Smoker Review of Systems Notes No any change in his 12 point review of systems exam was the I&D of the left foot Objective Vital Signs Vital Signs Date Time Temp Pulse Resp B/P Pulse Ox O2 Delivery O2 Flow Rate FiO2 08/20/16 08:38 63 08/20/16 08:00 97.3 72 16 199/88 94 08/20/16 04:00 97.3 63 20 171/70 93 08/20/16 00:00 98.8 70 18 178/68 96 08/19/16 20:47 60 08/19/16 20:00 98.3 67 20 171/78 92 08/19/16 18:01 66 08/19/16 16:00 98.1 56 20 171/75 94 08/19/16 14:51 90 Nasal Cannula 21 Coded Allergies: No Known Allergies (Unverified , 08/16/16) Medications and IVs Current Medications Furosemide (Lasix Inj) 40 mg ONCE ONCE IV PUSH Last administered on 08/16/16t 11:30; Start 08/16/16 at 11:30; Stop 08/16/16 at 11:31; Status DC Albuterol Sulfate (Albuterol Neb) 2.5 mg ONCE ONCE INH Last administered on 11:39; Start 08/16/16 at 11:45; Stop 08/16/16 at 11:46; Status DC Sodium Chloride (NS Flush) 2 ml UNSCH PRN IV FLUSH FLUSH AFTER USING IV ACCESS ; Start 08/16/16 at 15:15 Sodium Chloride (NS Flush) 2 ml BID IV FLUSH Last administered on 08/20/16 08: 42; Start 08/16/16 at 21:00 Heparin Sodium (Porcine) (Heparin Inj) 5,000 units Q8H SQ Last administered on 08/20/16 08:39; Start 08/16/16 at 16:00 Clonidine (Catapres) 0.1 mg DAILY PO Last administered on 08/18/16 09:26; Start 08/16/16 at 17:45; Stop 08/18/16 at 15:10; Status DC Docusate Sodium (Colace) 100 mg BID PO Last administered on 08/20/16 08:40; Start 08/16/16 at 21:00 Acetaminophen/ Hydrocodone Bitart ([place] 10-325 Mg) 1 tab TID PRN PO PAIN Last administered on 08/18/16 18:31; Start 08/16/16 at 17:45; Stop 08/19/16 at 09:36 ; Status DC Insulin Detemir (Levemir Inj) 22 units HS SQ Last administered on 08/16/16 20: 59; Start 08/16/16 at 21:00; Status Hold Isosorbide Mononitrate (Imdur) 30 mg DAILY PO Last administered on 08/20/16 08 :40; Start 08/17/16 at 09:00 Labetalol HCl (Trandate) 200 mg BID PO Last administered on 08/18/16 09:27; Start 08/16/16 at 21:00; Stop 08/18/16 at 15:12; Status DC Lorazepam (Ativan) 3 mg HS PO Last administered on 08/19/16 21:29; Start 08/16 at 21:00 Multivitamins/ Minerals Therapeutic (Theragran M Tab) 1 tab DAILY PO Last administered on 08/20/16 08:40; Start 08/17/16 at 09:00 Mycophenolate Mofetil (Cellcept) 500 mg BID@,18 PO Last administered on 05:51; Start 08/16/16 at 18:00 Nifedipine (Procardia Xl) 30 mg HS PO Last administered on 08/16/16 20:58; Start 08/16/16 at 21:00; Stop 08/17/16 at 11:44; Status DC Polyethylene Glycol (Miralax) 17 gm DAILY PRN PO CONSTIPATION; Start 08/16/16 at 17:45 Prednisone (Deltasone) 5 mg DAILY PO Last administered on 08/20/16 08:40; Start 08/17/16 at 09:00 Pregabalin (Lyrica) 25 mg TID PO Last administered on 08/20/16 08:40; Start at 18:00 Sodium Bicarbonate (Sodium Bicarbonate) 650 mg BIDPC PO Last administered on 08:40; Start 08/16/16 at 18:00 Tacrolimus (Prograf) 3 mg Q12H PO ; Start 08/16/16 at 18:00; Stop 08/16/16 at 18 :10; Status DC Ferrous Sulfate (Ferrous Sulfate) 325 mg DAILY PO Last administered on 08:40; Start 08/17/16 at 09:00 Patient Own Medication PT OWN MED: Linaclot... DAILY PRN PO CONSTIPATION; Start 08/16/16 at 17:45 Tacrolimus (Prograf) 3 mg DAILY@ PO Last administered on 08/18/16 06:37; Start 08/16/16 at 18:15; Stop 08/18/16 at 16:06; Status DC Furosemide (Lasix Inj) 40 mg DAILY IV PUSH Last administered on 08/17/16 08:45 ; Start 08/17/16 at 09:00; Stop 08/17/16 at 15:32; Status DC Trimethoprim/ Sulfamethoxazole (Bactrim Ds 800-160 Mg) 1 tab BID PO Last administered on 08/20/16 08:40; Start 08/16/16 at 21:00 Dextrose (D50w (Vial) Inj) 25 ml UNSCH PRN IV PUSH HYPOGLYCEMIA-SEE COMMENTS; Start 08/17/16 at 05:00 Glucagon (Glucagon Inj) 1 mg UNSCH PRN OTHER HYPOGLYCEMIA-SEE COMMENTS; Start 08/17/16 at 05:00 Insulin Aspart (NovoLOG SUPPLEMENTAL SCALE) 1 ACHS SLIDING SCALE SQ Last administered on 08/20/16 11:20; Start 08/17/16 at 07:00 Nifedipine (Procardia Xl) 30 mg BID PO Last administered on 08/20/16 08:40; Start 08/17/16 at 21:00 Nifedipine (Procardia Xl) 30 mg ONCE ONCE PO Last administered on 08/17/16 15 :07; Start 08/17/16 at 12:00; Stop 08/17/16 at 12:01; Status DC Furosemide (Lasix Inj) 20 mg DAILY IV PUSH Last administered on 08/18/16 09:29 ; Start 08/18/16 at 09:00; Stop 08/18/16 at 15:12; Status DC Regadenoson (Lexiscan Inj) 0.4 mg STK-MED ONCE .ROUTE Last administered on 08/18 09:22; Start 08/18/16 at 09:22; Stop 08/18/16 at 09:23; Status DC Aminophylline (Aminophylline Inj) 250 mg STK-MED ONCE .ROUTE Last administered on 08/18/16 10:45; Start 08/18/16 at 10:45; Stop 08/18/16 at 10:46; Status DC Clonidine (Catapres) 0.1 mg Q8H PO Last administered on 08/20/16 08:40; Start 08/18/16 at 17:00; Stop 08/20/16 at 08:50; Status DC Tacrolimus (Prograf) 3 mg DAILY@,18 PO Last administered on 08/20/16 05:51; Start 08/18/16 at 18:00 Bupivacaine HCl (Marcaine Pf 0.5% Inj) 30 ml STK-MED ONCE .ROUTE Last administered on 08/19/16 09:14; Start 08/19/16 at 07:46; Stop 08/19/16 at 07:47 ; Status DC Sodium Chloride (NS Flush) 2 ml UNSCH PRN IV FLUSH FLUSH AFTER USING IV ACCESS ; Start 08/19/16 at 09:45; Stop 08/19/16 at 09:45; Status DC Sodium Chloride (NS Flush) 2 ml BID IV FLUSH ; Start 08/19/16 at 21:00; Stop at 21:00; Status DC Miscellaneous Information (Post-op Orders (for Pharmacy)) STAT ONCE XX ; Start 08/19/16 at 09:45; Stop 08/19/16 at 09:46; Status DC Oxycodone/ Acetaminophen (Percocet 5-325 Mg) 1 tab Q6H PRN PO PAIN SCALE 3 TO 5; Start 08/19/16 at 09:45 Oxycodone/ Acetaminophen (Percocet 10-325 Mg) 1 tab Q6H PRN PO PAIN SCALE 6 TO 10 Last administered on 08/20/16 08:40; Start 08/19/16 at 09:45 Morphine Sulfate (Morphine Inj) 4 mg Q3H PRN IV BREAKTHROUGH PAIN; Start at 09:45 Naloxone HCl (Narcan Inj) 0.4 mg UNSCH PRN IV SEE LABEL COMMENTS; Start at 09:45 Fentanyl Citrate (fentaNYL INJ) 100 mcg STK-MED ONCE .ROUTE ; Start 08/19/16 at 09:41; Stop 08/19/16 at 09:42; Status DC Carvedilol (Coreg) 6.25 mg BID PO Last administered on 08/20/16 08:40; Start 08/19/16 at 10:30; Stop 08/20/16 at 09:51; Status DC Insulin Human Regular (NovoLIN R INJ) 10 units ONCE ONCE IV PUSH ; Start at 18:30; Stop 08/19/16 at 18:31; Status DC Sodium Polystyrene Sulfonate (Kayexalate Liq) 15 gm ONCE ONCE PO Last administered on 08/19/16 18:24; Start 08/19/16 at 18:30; Stop 08/19/16 at 18:31 ; Status DC Clonidine (Catapres) 0.2 mg Q8H PO Last administered on 08/20/16 11:18; Start 08/20/16 at 10:00 Carvedilol (Coreg) 12.5 mg BID PO ; Start 08/20/16 at 21:00 Other Results Laboratory Tests Test 08/19/16 08/20/16 06:21 10:44 White Blood Count 5.4 TH/MM3 6.1 TH/MM3 Red Blood Count 4.23 MIL/MM3 4.07 MIL/MM3 Hemoglobin 12.4 GM/DL 11.5 GM/DL Hematocrit 37.2 % 36.1 % Mean Corpuscular Volume 87.9 FL 88.7 FL Mean Corpuscular Hemoglobin 29.4 PG 28.4 PG Mean Corpuscular Hemoglobin 33.5 % 32.0 % Concent Red Cell Distribution Width 16.2 % 16.1 % Platelet Count 153 TH/MM3 131 TH/MM3 Mean Platelet Volume 9.5 FL 8.9 FL Laboratory Tests Test 08/19/16 08/20/16 06:21 10:44 Sodium Level 136 MEQ/L 136 MEQ/L Potassium Level 5.7 MEQ/L 5.5 MEQ/L Chloride Level 108 MEQ/L 106 MEQ/L Carbon Dioxide Level 20.3 MEQ/L 25.0 MEQ/L Anion Gap 8 MEQ/L 5 MEQ/L Blood Urea Nitrogen 56 MG/DL 57 MG/DL Creatinine 2.70 MG/DL 2.76 MG/DL Estimat Glomerular Filtration 24 ML/MIN 23 ML/MIN Rate Random Glucose 180 MG/DL 186 MG/DL Calcium Level 8.9 MG/DL 8.7 MG/DL Microbiology Date/Time Procedure Status Source Growth 08/19/16 09:18 Gram Stain - Final Resulted Wound Finger 08/19/16 09:18 Wound Culture Resulted Wound Finger Pending Gram stain was negative. Culture and sensitivity is pending Objective Remarks Last Impressions Renal Ultrasound 08/17/16 0000 Signed Impressions: Service Date/Time: Wednesday, August 17, 2016 11:26 - CONCLUSION: 1. Normal ultrasound appearance of the right lower quadrant renal transplant with normal vascular assessment. 2. Chronic fluid collection at the lower pole of the transplant kidney measuring up to 3.5 cm. It has slightly decreased in size since the prior study. 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 Derrek Byrd MD Myocardial Perfusion Scan Nuc Med 08/17/16 0000 Signed Impressions: Service Date/Time: Wednesday, August 17, 2016 11:42 - CONCLUSION: Global hypokinesis and reduction in ejection fraction and no significant ischemia. RISK CATEGORY: Intermediate (1-3%% Annual Mortality Rate) Guillermo Frausto MD Foot MRI 08/17/16 0000 Signed Impressions: Service Date/Time: Wednesday, August 17, 2016 19:17 - CONCLUSION: Multilocular fluid intensity collection as described above which may reflect abscess. Skin thickening and subcutaneous edema is also present dorsally characteristic of cellulitis. No evidence of osteomyelitis Alejandro Morales MD Chest X-Ray 08/16/16 1114 Signed Impressions: Service Date/Time: August 11:58 - CONCLUSION: Changes most characteristic of congestive heart failure with pulmonary edema and small effusions now noted. Robin Reid MD Exam-Podiatry Constitutional General appearance: comfortable Nutritional status: normal Orientation: alert and oriented x3 Dermatological Exam Skin Temp - Right: Within Normal Limits Skin Texture - Right: Within Normal Limits Skin Elasticity - Right: Within Normal Limits Skin Tugor - Right: Within Normal Limits Hair Growth - Right: Within Normal Limits Pigmentation - Right: Within Normal Limits Skin Temp - Left: Within Normal Limits Skin Texture - Left: Within Normal Limits Skin Elasticity - Left: Within Normal Limits Skin Tugor - Left: Within Normal Limits Hair Growth - Left: Within Normal Limits Pigmentation - Left: Within Normal Limits Ulcers: Location/Measurements Open abscess site third interspace left foot with dressing in place. Vascular/Lymphatic Exam R Dorsails Pedis: Palpable L Dorsails Pedis: Palpable R Posterior Tibial: Palpable L Posterior Tibial: Palpable Neurologic Exam Present on right: Tingling, Paraesthesia Present on left: Tingling, Paraesthesia Muscle Strength Dorsiflexion (Right): Normal Plantarflexion (Right): Normal Inversion (Right): Normal Eversion (Right): Normal Digital (Right): Normal Dorsiflexion (Left): Normal Plantarflexion (Left): Normal Inversion (Left): Normal Eversion (Left): Normal Digital (Left): Normal Foot Range of Motion Dorsiflexion (Right): Normal Plantarflexion (Right): Normal Inversion (Right): Normal Eversion (Right): Normal Digital (Right): Normal Dorsiflexion (Left): Normal Plantarflexion (Left): Normal Inversion (Left): Normal Eversion (Left): Normal Digital (Left): Normal Assessment & Plan Diagnosis: (1) Abscess of left foot Status: Acute A/P PLAN: I would change his dressing tomorrow and obtain a new culture and sensitivity. If patient is wound is clean he can be return to the OR for primary closure. Continue to follow Chung Matos DPM Aug 20, 2016 12:52
[2016-08-20] MEDS ORDERED: VANCOMYCIN INJ 1,000 MG in SODIUM CHLOR 0.9% 250 ML INJ 250 ML IV ONE (13:00)
[2016-08-20] MEDS ORDERED: POLYETHYLENE GLYCOL 17 GM PKG PO ONE (13:00)
[2016-08-20] MEDS ORDERED: SODIUM POLYSTYRENE SULFONATE SUSP 15 GM/60 ML CUP PO ONE (13:00)
--- NOTE | 2016-08-20 14:06 | HHI.NPPN ---
Subjective History of Present Illness 66 year old with kidney transplant l foot infection Review of Systems General Constitutional: Fatigue Musculoskeletal MS: Pain/Stiffness Objective Data Data 08/19/16 08/20/16 19:00 07:00 Intake Total 300 ml 480 ml Output Total 5 ml Balance 295 ml 480 ml Intake Oral 50 ml 480 ml IV Total 0 ml Other 250 ml Estimated Blood Loss 5 ml # Voids 0 5 # Bowel Movements 0 Vital Signs Date Time Temp Pulse Resp B/P Pulse Ox O2 Delivery O2 Flow Rate FiO2 08/20/16 12:00 97.7 60 16 158/74 93 08/20/16 08:38 63 08/20/16 08:00 97.3 72 16 199/88 94 08/20/16 04:00 97.3 63 20 171/70 93 08/20/16 00:00 98.8 70 18 178/68 96 08/19/16 20:47 60 08/19/16 20:00 98.3 67 20 171/78 92 08/19/16 18:01 66 08/19/16 16:00 98.1 56 20 171/75 94 08/19/16 14:51 90 Nasal Cannula 21 -: 08/20/16 1044 08/20/16 1044 Physical Exam General Appearance: Well Developed, Well Nourished Pulmonary Resp Exam: Clear Bilaterally, Breath Sounds Equal Cardiology CV Exam: Regular, Normal Sinus Rhythm Gastrointestinal/Abdomen GI Exam: Soft, Non-Tender, Bowel Sounds Present Integumentary Skin Exam: Lesion(s) Extremeties Extremities Exam: No Edema Assessment/Plan Problem List: (1) Kidney transplant status, cadaveric Plan: Patient US at baseline no obstruction Cr 2.7 K 5.5 Kayexalate s/p left foot wound debridement he can take Kayexalate at home if discharged Lasix dose decreased on Vanco/Zosyn await C/S (2) Diastolic heart failure Plan: blood pressure improved (3) DM (diabetes mellitus) Plan: Monitor (4) Abscess of left foot 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
[2016-08-20] MEDS: PIPERACIL-TAZO 2.25 GM PREMIX 50 ML IV SCH ×2 (15:07→21:22)
[2016-08-20] MEDS: CARVEDILOL 12.5 MG TAB PO SCH (21:21)
[2016-08-20] MEDS: LORazepam 1 MG TAB PO SCH (21:21)
[2016-08-21] VITALS (7 sets, daily range): BP systolic 141–191; BP diastolic 63–83; PULSE 54–84; RESP 18; TEMP 97.1–97.7; O2SAT 92–97
[2016-08-21] MEDS: cloNIDine HCL 0.2 MG TAB PO SCH ×3 (02:57→17:03)
[2016-08-21] MEDS: MYCOPHENOLATE MOFETIL 500 MG TAB PO SCH ×2 (05:51→17:03)
[2016-08-21] MEDS: PIPERACIL-TAZO 2.25 GM PREMIX 50 ML IV SCH ×3 (05:51→21:02)
[2016-08-21] MEDS: TACROLIMUS 1 MG CAP PO SCH ×2 (05:51→17:03)
[2016-08-21] MEDS: INSULIN ASPART SUPPLEMENTAL SCALE SQ SCH ×4 (05:52→21:06)
[2016-08-21 08:24] LABS: AUTOMATED NEUTROPHIL # 4.9 TH/MM3 (1.8-7.7); BASOPHIL % 0.5 % (0.0-2.0); EOSINOPHIL # 0.1 TH/MM3 (0-0.4); HEMO FLAGS DIFF FINAL; LYMPHOCYTE # 0.5 TH/MM3 (1.0-4.8); MEAN CELL VOLUME 88.9 FL (80.0-100.0); MEAN CORPUSCULAR HEMOGLOBIN 28.4 PG (27.0-34.0); MONO % 6.8 % (0.0-8.0); NEUT % 82.7 % (16.0-70.0); PLATELET COUNT 129 TH/MM3 (150-450); RED BLOOD COUNT 4.05 MIL/MM3 (4.50-5.90); RED CELL DISTRIBUTION WIDTH 16.7 % (11.6-17.2); WHITE BLOOD COUNT 5.9 TH/MM3 (4.0-11.0)
[2016-08-21] MEDS: MULTIVITAMINS/MINERALS THERAPEUTIC TAB PO SCH (08:56)
[2016-08-21] MEDS: predniSONE 5 MG TAB PO SCH (08:56)
[2016-08-21] MEDS: PREGABALIN 25 MG CAP PO SCH ×3 (08:56→17:03)
[2016-08-21] MEDS: DOCUSATE SODIUM 100 MG CAP PO SCH ×2 (08:56→20:56)
[2016-08-21] MEDS: NIFEdipine 30 MG SUSTAINED RELEASE TAB PO SCH ×2 (08:56→20:56)
[2016-08-21] MEDS: CARVEDILOL 12.5 MG TAB PO SCH ×2 (08:56→20:56)
[2016-08-21] MEDS: SODIUM BICARBONATE 650 MG TAB PO SCH ×2 (08:56→17:03)
[2016-08-21] MEDS: FUROSEMIDE 40 MG TAB PO SCH (08:56)
[2016-08-21] MEDS: FERROUS SULFATE 325 MG (65 MG ELEMENTAL IRON) TAB PO SCH (08:56)
[2016-08-21] MEDS: ISOSORBIDE MONONITRATE 30 MG TAB PO SCH (08:56)
[2016-08-21] MEDS: HEPARIN SODIUM - SQ 10,000 UNITS/ML VIAL SQ SCH ×3 (08:57→23:43)
[2016-08-21] MEDS: SODIUM CHLORIDE 0.9% FLUSH 10 ML FLUSH IV FLUSH SCH ×2 (08:59→21:04)
[2016-08-21 09:04] LABS: ALKALINE PHOSPHATASE 106 U/L (45-117); ALT (GPT) 32 U/L (12-78); ANION GAP 11 MEQ/L (5-15); AST (GOT) 14 U/L (15-37); BICARBONATE 19.7 MEQ/L (21.0-32.0); BLOOD UREA NITROGEN 58 MG/DL (7-18); CHLORIDE 104 MEQ/L (98-107); GLOMERULAR FILTRATION RATE 22 ML/MIN (>89); MAGNESIUM 2.5 MG/DL (1.5-2.5); POTASSIUM 5.2 MEQ/L (3.5-5.1); SODIUM (NA) 135 MEQ/L (136-145); TOTAL BILIRUBIN ADULT 1.1 MG/DL (0.2-1.0)
[2016-08-21] MEDS: oxyCODONE/ACETAMINOPHEN 10 MG/325 MG TAB PO PRN ×3 (09:17→22:31)
[2016-08-21] MEDS ORDERED: RESP: ALBUTEROL 2.5 MG/3 ML NEB (PRN) NEB (11:00)
--- NOTE | 2016-08-21 12:10 | HHI.NPPN ---
Subjective History of Present Illness 66 year old with kidney transplant l foot infection Review of Systems General Constitutional: Fatigue Musculoskeletal MS: Pain/Stiffness Objective Data Data 08/20/16 08/21/16 19:00 07:00 Intake Total 972 ml 1110 ml Output Total 650 ml 575 ml Balance 322 ml 535 ml Intake Oral 720 ml 960 ml IV Total 252 ml 150 ml Output Urine Total 650 ml 575 ml # Voids 3 # Bowel Movements 0 Vital Signs Date Time Temp Pulse Resp B/P Pulse Ox O2 Delivery O2 Flow Rate FiO2 08/21/16 10:15 93 Nasal Cannula 3.00 08/21/16 08:30 Nasal Cannula 2.00 08/21/16 08:00 54 08/21/16 08:00 97.5 59 18 191/81 97 08/21/16 04:00 97.1 66 18 188/83 92 08/21/16 00:00 97.7 84 18 187/81 93 08/20/16 21:27 67 08/20/16 21:16 92 Nasal Cannula 3.00 08/20/16 20:00 97.2 66 18 197/81 93 08/20/16 16:00 97.6 62 20 177/79 92 -: 08/21/16 0707 08/21/16 0707 Physical Exam General Appearance: Well Developed, Well Nourished Pulmonary Resp Exam: Clear Bilaterally, Breath Sounds Equal Cardiology CV Exam: Regular, Normal Sinus Rhythm Gastrointestinal/Abdomen GI Exam: Soft, Non-Tender, Bowel Sounds Present Integumentary Skin Exam: Lesion(s) Extremeties Extremities Exam: Trace Edema Assessment/Plan Problem List: (1) Kidney transplant status, cadaveric Plan: Patient US at baseline no obstruction Cr 2.8 K 5.2 MSSA on Zosyn s/p left foot wound debridement c/o dyspnea, I will give albumin/Lasix today on Prograf/Prednisone and CellCept continue to hydrate dc plans per primary physician (2) Diastolic heart failure Plan: blood pressure improved (3) DM (diabetes mellitus) Plan: Monitor (4) Abscess of left foot 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
--- NOTE | 2016-08-21 12:26 | PD.POD ---
Subjective Podiatric Problems 66-year-old diabetic presents with abscess in the third interspace of the left foot. MRI showed abscess formation. Patient had pus expressed from the area during surgery. Patient complaining of minimal pain or discomfort. Intraoperative culture was growing staph aureus. Pain scale used: 0-10 numeric scale Pain score: 2 Remarks History of renal transplant. History of CHF. Patient was seen in the wound center on the and had pus expressed from the area. He was hospitalized for shortness of breath since that time. He was taken to the OR on Saturday and had an I&D performed of the third interspace of the left foot. Staph was growing from the wound. Past Med/Surg/Social History Past Medical History HEENT: REPORTS HX OF: Other HEENT history (Sam's syndrom) Endocrine: REPORTS HX OF: Diabetes mellitus Respiratory: REPORTS HX OF: COPD Genitourinary: REPORTS HX OF: Kidney failure, Other history (kidney transplant) Infectious disease: REPORTS HX OF: Chickenpox, Other inf disease history ( shingles) Psychiatric: REPORTS HX OF: Anxiety Disabilities: REPORTS HX OF: Hearing deficit Past Surgical History Cardiovascular: REPORTS HX OF: Other cardiac surgery Genitourinary: REPORTS HX OF: Other surgery (kidney transplant, stents ) Musculoskeletal: REPORTS HX OF: Other musculoskeletal srg (rt knee) Social History Smoking Status: Former Smoker Review of Systems Notes No changes in his 14 point review of systems exam since yesterday Constitutional: COMPLAINS OF: Pain Neurological: COMPLAINS OF: Numbness/tingling, Changes in sensation Objective Vital Signs Vital Signs Date Time Temp Pulse Resp B/P Pulse Ox O2 Delivery O2 Flow Rate FiO2 08/21/16 10:15 93 Nasal Cannula 3.00 08/21/16 08:30 Nasal Cannula 2.00 08/21/16 08:00 54 08/21/16 08:00 97.5 59 18 191/81 97 08/21/16 04:00 97.1 66 18 188/83 92 08/21/16 00:00 97.7 84 18 187/81 93 08/20/16 21:27 67 08/20/16 21:16 92 Nasal Cannula 3.00 08/20/16 20:00 97.2 66 18 197/81 93 08/20/16 16:00 97.6 62 20 177/79 92 Coded Allergies: No Known Allergies (Unverified , 4/13/17) Medications and IVs Current Medications Furosemide (Lasix Inj) 40 mg ONCE ONCE IV PUSH Last administered on 08/16/16 11:30; Start 08/16/16 at 11:30; Stop 08/16/16 at 11:31; Status DC Albuterol Sulfate (Albuterol Neb) 2.5 mg ONCE ONCE INH Last administered on 11:39; Start 08/16/16 at 11:45; Stop 08/16/16 at 11:46; Status DC Sodium Chloride (NS Flush) 2 ml UNSCH PRN IV FLUSH FLUSH AFTER USING IV ACCESS ; Start 08/16/16 at 15:15 Sodium Chloride (NS Flush) 2 ml BID IV FLUSH Last administered on 08/21/16 08: 59; Start 08/16/16 at 21:00 Heparin Sodium (Porcine) (Heparin Inj) 5,000 units Q8H SQ Last administered on 08/21/16 08:57; Start 08/16/16 at 16:00 Clonidine (Catapres) 0.1 mg DAILY PO Last administered on 08/18/16 09:26; Start 08/16/16 at 17:45; Stop 08/18/16 at 15:10; Status DC Docusate Sodium (Colace) 100 mg BID PO Last administered on 08/21/16 08:56; Start 08/16/16 at 21:00 Acetaminophen/ Hydrocodone Bitart ([place] 10-325 Mg) 1 tab TID PRN PO PAIN Last administered on 08/18/16 18:31; Start 08/16/16 at 17:45; Stop 08/19/16 at 09:36 ; Status DC Insulin Detemir (Levemir Inj) 22 units HS SQ Last administered on 08/16/16 20: 59; Start 08/16/16 at 21:00; Status Hold Isosorbide Mononitrate (Imdur) 30 mg DAILY PO Last administered on 08/21/16 08 :56; Start 08/17/16 at 09:00 Labetalol HCl (Trandate) 200 mg BID PO Last administered on 08/18/16 09:27; Start 08/16/16 at 21:00; Stop 08/18/16 at 15:12; Status DC Lorazepam (Ativan) 3 mg HS PO Last administered on 08/20/16 21:21; Start 08/16 at 21:00 Multivitamins/ Minerals Therapeutic (Theragran M Tab) 1 tab DAILY PO Last administered on 08/21/16 08:56; Start 08/17/16 at 09:00 Mycophenolate Mofetil (Cellcept) 500 mg BID@ PO Last administered on 05:51; Start 08/16/16 at 18:00 Nifedipine (Procardia Xl) 30 mg HS PO Last administered on 08/16/16 20:58; Start 08/16/16 at 21:00; Stop 08/17/16 at 11:44; Status DC Polyethylene Glycol (Miralax) 17 gm DAILY PRN PO CONSTIPATION; Start 08/16/16 at 17:45 Prednisone (Deltasone) 5 mg DAILY PO Last administered on 08/21/16 08:56; Start 08/17/16 at 09:00 Pregabalin (Lyrica) 25 mg TID PO Last administered on 08/21/16 08:56; Start at 18:00 Sodium Bicarbonate (Sodium Bicarbonate) 650 mg BIDPC PO Last administered on 08:56; Start 08/16/16 at 18:00 Tacrolimus (Prograf) 3 mg Q12H PO ; Start 08/16/16 at 18:00; Stop 08/16/16 at 18 :10; Status DC Ferrous Sulfate (Ferrous Sulfate) 325 mg DAILY PO Last administered on 08:56; Start 08/17/16 at 09:00 Patient Own Medication PT OWN MED: Linaclot... DAILY PRN PO CONSTIPATION; Start 08/16/16 at 17:45 Tacrolimus (Prograf) 3 mg DAILY@ PO Last administered on 08/18/16 06:37; Start 08/16/16 at 18:15; Stop 08/18/16 at 16:06; Status DC Furosemide (Lasix Inj) 40 mg DAILY IV PUSH Last administered on 08/17/16 08:45 ; Start 08/17/16 at 09:00; Stop 08/17/16 at 15:32; Status DC Trimethoprim/ Sulfamethoxazole (Bactrim Ds 800-160 Mg) 1 tab BID PO Last administered on 08/20/16 08:40; Start 08/16/16 at 21:00; Stop 08/20/16 at 13:00 ; Status DC Dextrose (D50w (Vial) Inj) 25 ml UNSCH PRN IV PUSH HYPOGLYCEMIA-SEE COMMENTS; Start 08/17/16 at 05:00 Glucagon (Glucagon Inj) 1 mg UNSCH PRN OTHER HYPOGLYCEMIA-SEE COMMENTS; Start 08/17/16 at 05:00 Insulin Aspart (NovoLOG SUPPLEMENTAL SCALE) 1 ACHS SLIDING SCALE SQ Last administered on 08/21/16 12:17; Start 08/17/16 at 07:00 Nifedipine (Procardia Xl) 30 mg BID PO Last administered on 08/21/16 08:56; Start 08/17/16 at 21:00 Nifedipine (Procardia Xl) 30 mg ONCE ONCE PO Last administered on 08/17/16 15 :07; Start 08/17/16 at 12:00; Stop 08/17/16 at 12:01; Status DC Furosemide (Lasix Inj) 20 mg DAILY IV PUSH Last administered on 08/18/16 09:29 ; Start 08/18/16 at 09:00; Stop 08/18/16 at 15:12; Status DC Regadenoson (Lexiscan Inj) 0.4 mg STK-MED ONCE .ROUTE Last administered on 08/18 09:22; Start 08/18/16 at 09:22; Stop 08/18/16 at 09:23; Status DC Aminophylline (Aminophylline Inj) 250 mg STK-MED ONCE .ROUTE Last administered on 08/18/16 10:45; Start 08/18/16 at 10:45; Stop 08/18/16 at 10:46; Status DC Clonidine (Catapres) 0.1 mg Q8H PO Last administered on 08/20/16 08:40; Start 08/18/16 at 17:00; Stop 08/20/16 at 08:50; Status DC Tacrolimus (Prograf) 3 mg DAILY@,18 PO Last administered on 08/21/16 05:51; Start 08/18/16 at 18:00 Bupivacaine HCl (Marcaine Pf 0.5% Inj) 30 ml STK-MED ONCE .ROUTE Last administered on 08/19/16 09:14; Start 08/19/16 at 07:46; Stop 08/19/16 at 07:47 ; Status DC Sodium Chloride (NS Flush) 2 ml UNSCH PRN IV FLUSH FLUSH AFTER USING IV ACCESS ; Start 08/19/16 at 09:45; Stop 08/19/16 at 09:45; Status DC Sodium Chloride (NS Flush) 2 ml BID IV FLUSH ; Start 08/19/16 at 21:00; Stop at 21:00; Status DC Miscellaneous Information (Post-op Orders (for Pharmacy)) STAT ONCE XX ; Start 08/19/16 at 09:45; Stop 08/19/16 at 09:46; Status DC Oxycodone/ Acetaminophen (Percocet 5-325 Mg) 1 tab Q6H PRN PO PAIN SCALE 3 TO 5; Start 08/19/16 at 09:45 Oxycodone/ Acetaminophen (Percocet 10-325 Mg) 1 tab Q6H PRN PO PAIN SCALE 6 TO 10 Last administered on 08/21/16 09:17; Start 08/19/16 at 09:45 Morphine Sulfate (Morphine Inj) 4 mg Q3H PRN IV BREAKTHROUGH PAIN; Start at 09:45 Naloxone HCl (Narcan Inj) 0.4 mg UNSCH PRN IV SEE LABEL COMMENTS; Start at 09:45 Fentanyl Citrate (fentaNYL INJ) 100 mcg STK-MED ONCE .ROUTE ; Start 08/19/16 at 09:41; Stop 08/19/16 at 09:42; Status DC Carvedilol (Coreg) 6.25 mg BID PO Last administered on 08/20/16 08:40; Start 08/19/16 at 10:30; Stop 08/20/16 at 09:51; Status DC Insulin Human Regular (NovoLIN R INJ) 10 units ONCE ONCE IV PUSH ; Start at 18:30; Stop 08/19/16 at 18:31; Status DC Sodium Polystyrene Sulfonate (Kayexalate Liq) 15 gm ONCE ONCE PO Last administered on 08/19/16 18:24; Start 08/19/16 at 18:30; Stop 08/19/16 at 18:31 ; Status DC Clonidine (Catapres) 0.2 mg Q8H PO Last administered on 08/21/16 08:56; Start 08/20/16 at 10:00 Carvedilol (Coreg) 12.5 mg BID PO Last administered on 08/21/16 08:56; Start 08/20/16 at 21:00 Sodium Polystyrene Sulfonate (Kayexalate Liq) 15 gm ONCE ONCE PO Last administered on 08/20/16 13:22; Start 08/20/16 at 13:00; Stop 08/20/16 at 13:01 ; Status DC Polyethylene Glycol 17 gm 17 gm ONCE ONCE PO Last administered on 08/20/16 13 :22; Start 08/20/16 at 13:00; Stop 08/20/16 at 13:01; Status DC Vancomycin HCl 1000 mg/Sodium Chloride 250 ml @ 250 mls/hr ONCE ONCE IV Last administered on 08/20/16 13:23; Start 08/20/16 at 13:00; Stop 08/20/16 at 13:59 ; Status DC Piperacillin Sod/ Tazobactam Sod (Zosyn 2.25 Gm Premix) 50 ml @ 100 mls/hr Q8H IV Last administered on 08/21/16 05:51; Start 08/20/16 at 14:00 Furosemide (Lasix) 40 mg DAILY PO Last administered on 08/21/16 08:56; Start 08/21/16 at 09:00 Albuterol/ Ipratropium (Duoneb Neb) 1 ampule Q8HR WHILE AWAKE NEB NEB ; Start 08/21/16 at 11:00 Albuterol Sulfate (Albuterol Neb) 2.5 mg Q4HR NEB PRN NEB Dyspnea; Start at 11:00 Other Results Laboratory Tests Test 08/20/16 08/21/16 10:44 07:07 White Blood Count 6.1 TH/MM3 5.9 TH/MM3 Red Blood Count 4.07 MIL/MM3 4.05 MIL/MM3 Hemoglobin 11.5 GM/DL 11.5 GM/DL Hematocrit 36.1 % 36.0 % Mean Corpuscular Volume 88.7 FL 88.9 FL Mean Corpuscular Hemoglobin 28.4 PG 28.4 PG Mean Corpuscular Hemoglobin 32.0 % 32.0 % Concent Red Cell Distribution Width 16.1 % 16.7 % Platelet Count 131 TH/MM3 129 TH/MM3 Mean Platelet Volume 8.9 FL 9.2 FL Neutrophils (%) (Auto) 82.7 % Lymphocytes (%) (Auto) 9.0 % Monocytes (%) (Auto) 6.8 % Eosinophils (%) (Auto) 1.0 % Basophils (%) (Auto) 0.5 % Neutrophils # (Auto) 4.9 TH/MM3 Lymphocytes # (Auto) 0.5 TH/MM3 Monocytes # (Auto) 0.4 TH/MM3 Eosinophils # (Auto) 0.1 TH/MM3 Basophils # (Auto) 0.0 TH/MM3 CBC Comment DIFF FINAL Differential Comment Laboratory Tests Test 08/20/16 08/21/16 10:44 07:07 Sodium Level 136 MEQ/L 135 MEQ/L Potassium Level 5.5 MEQ/L 5.2 MEQ/L Chloride Level 106 MEQ/L 104 MEQ/L Carbon Dioxide Level 25.0 MEQ/L 19.7 MEQ/L Anion Gap 5 MEQ/L 11 MEQ/L Blood Urea Nitrogen 57 MG/DL 58 MG/DL Creatinine 2.76 MG/DL 2.88 MG/DL Estimat Glomerular Filtration 23 ML/MIN 22 ML/MIN Rate Random Glucose 186 MG/DL 288 MG/DL Calcium Level 8.7 MG/DL 9.0 MG/DL Phosphorus Level 3.2 MG/DL Magnesium Level 2.5 MG/DL Total Bilirubin 1.1 MG/DL Aspartate Amino Transf 14 U/L (AST/SGOT) Alanine Aminotransferase 32 U/L (ALT/SGPT) Alkaline Phosphatase 106 U/L Total Protein 6.0 GM/DL Albumin 3.2 GM/DL Microbiology Date/Time Procedure Status Source Growth 08/19/16 09:18 Gram Stain - Final Complete Wound Finger 08/19/16 09:18 Wound Culture - Final Complete Staphylococcus Aureus Objective Remarks Last Impressions Renal Ultrasound 08/17/16 0000 Signed Impressions: Service Date/Time: Wednesday, August 17, 2016 11:26 - CONCLUSION: 1. Normal ultrasound appearance of the right lower quadrant renal transplant with normal vascular assessment. 2. Chronic fluid collection at the lower pole of the transplant kidney measuring up to 3.5 cm. It has slightly decreased in size since the prior study. 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 Derrek Byrd MD Myocardial Perfusion Scan Nuc Med 08/17/16 0000 Signed Impressions: Service Date/Time: Wednesday, August 17, 2016 11:42 - CONCLUSION: Global hypokinesis and reduction in ejection fraction and no significant ischemia. RISK CATEGORY: Intermediate (1-3%% Annual Mortality Rate) Guillermo Frausto MD Foot MRI 08/17/16 0000 Signed Impressions: Service Date/Time: Wednesday, August 17, 2016 19:17 - CONCLUSION: Multilocular fluid intensity collection as described above which may reflect abscess. Skin thickening and subcutaneous edema is also present dorsally characteristic of cellulitis. No evidence of osteomyelitis Alejandro Morales MD Chest X-Ray 08/16/16 1114 Signed Impressions: Service Date/Time: August 11:58 - CONCLUSION: Changes most characteristic of congestive heart failure with pulmonary edema and small effusions now noted. Robin Reid MD Exam-Podiatry Constitutional General appearance: comfortable Nutritional status: normal Orientation: alert and oriented x3 Dermatological Exam Skin Temp - Right: Within Normal Limits Skin Texture - Right: Within Normal Limits Skin Elasticity - Right: Within Normal Limits Skin Tugor - Right: Within Normal Limits Hair Growth - Right: Within Normal Limits Pigmentation - Right: Within Normal Limits Skin Temp - Left: Within Normal Limits Skin Texture - Left: Within Normal Limits Skin Elasticity - Left: Within Normal Limits Skin Tugor - Left: Within Normal Limits Hair Growth - Left: Within Normal Limits Pigmentation - Left: Within Normal Limits Ulcers: Location/Measurements I&D site with granulating base. No purulence seen. Minimal odor present. Vascular/Lymphatic Exam R Dorsails Pedis: Palpable L Dorsails Pedis: Palpable R Posterior Tibial: Palpable L Posterior Tibial: Palpable Neurologic Exam Details No neurological changes seen in his exam Muscle Strength Dorsiflexion (Right): Normal Plantarflexion (Right): Normal Inversion (Right): Normal Eversion (Right): Normal Digital (Right): Normal Dorsiflexion (Left): Normal Plantarflexion (Left): Normal Inversion (Left): Normal Eversion (Left): Normal Digital (Left): Normal Foot Range of Motion Dorsiflexion (Right): Normal Plantarflexion (Right): Normal Inversion (Right): Normal Eversion (Right): Normal Digital (Right): Normal Dorsiflexion (Left): Normal Plantarflexion (Left): Normal Inversion (Left): Normal Eversion (Left): Normal Digital (Left): Normal Joint Instability Bunion (Left): Non-painful Bunion, Crepitus 1st MPJ Assessment & Plan Diagnosis: (1) Abscess of left foot Status: Acute A/P PLAN: Dressing to left foot was changed under aseptic conditions. Wound was packed with Maxorb extra AG. New culture and sensitivity was obtained. Once the wound is clean he can be returned to the OR for primary closure. If we cannot get the wound clean we can discharge him with follow-up in the wound center for local wound care. Continue to follow I Chung Matos DPM Aug 21, 2016 12:26
[2016-08-21] MEDS: RESP: ALBUTEROL 2.5 MG/IPRATROPIUM 0.5 MG NEB (SCH) NEB ×2 (12:39→16:29)
[2016-08-21] MEDS ORDERED: ALBUMIN HUMAN 25% 25 GM/100 ML BAGP IV ONE (13:00)
[2016-08-21] MEDS ORDERED: FUROSEMIDE 20 MG/2 ML VIAL IV PUSH ONE (14:00)
--- NOTE | 2016-08-21 17:08 | HHI.PR ---
Subjective Remarks Complaint of 2-3 month history of dyspnea with exertion which correlates with 2- 3 months of dealing with a chronic food infection (admitted with an acute phase of this infection). He may have physiologic or medication response causing a mild COPD exacerbation. Requires oxygen here, but was not using oxygen at baseline (may have needed it based on 2-3 month symptoms). Objective Vital Signs Date Time Temp Pulse Resp B/P Pulse Ox O2 Delivery O2 Flow Rate FiO2 08/21/16 12:00 97.4 54 18 141/63 97 08/21/16 10:15 93 Nasal Cannula 3.00 08/21/16 08:30 Nasal Cannula 2.00 08/21/16 08:00 54 08/21/16 08:00 97.5 59 18 191/81 97 08/21/16 04:00 97.1 66 18 188/83 92 08/21/16 00:00 97.7 84 18 187/81 93 08/20/16 21:27 67 08/20/16 21:16 92 Nasal Cannula 3.00 08/20/16 20:00 97.2 66 18 197/81 93 I/O 08/20/16 08/20/16 08/20/16 08/21/16 08/21/16 08/21/16 07:00 15:00 23:00 07:00 15:00 23:00 Intake Total 480 ml 972 ml 530 ml 580 ml 154 ml Output Total 650 ml 575 ml Balance 480 ml 322 ml 530 ml 5 ml 154 ml Intake Oral 480 ml 720 ml 480 ml 480 ml IV Total 252 ml 50 ml 100 ml 54 ml Albumin 100 ml Output Urine Total 650 ml 575 ml # Voids 3 2 1 # Bowel Movements 0 0 0 Result Diagram: 08/21/16 0707 08/21/16 07 Objective Remarks GENERAL: A&Ox3, NAD SKIN: Warm and dry. HEAD: Normocephalic. EYES: No scleral icterus. No injection or drainage. NECK: Supple, trachea midline. No JVD or lymphadenopathy. CARDIOVASCULAR: Regular rate and rhythm without murmurs, gallops, or rubs. RESPIRATORY: Breath sounds equal bilaterally. No accessory muscle use. No wheezing. Crackles at bases. GASTROINTESTINAL: Abdomen soft, non-tender, nondistended. MUSCULOSKELETAL: No cyanosis, or edema. BACK: Nontender without obvious deformity. No CVA tenderness. Medications and IVs Administered Medications Medications (Trade) Dose Ordered Sig/Rai Route PRN Reason Start Time Stop Time Status Last Admin Dose Admin Sodium Chloride (NS Flush) 2 ml BID IV FLUSH 08/16/16 21:00 08/21/16 08:59 Heparin Sodium (Porcine) (Heparin Inj) 5,000 units Q8H SQ 08/16/16 16:00 08/21/16 15:26 Docusate Sodium (Colace) 100 mg BID PO 08/16/16 21:00 08/21/16 08:56 Insulin Detemir (Levemir Inj) 22 units HS SQ 08/16/16 21:00 Hold 08/16/16 20:59 Isosorbide Mononitrate (Imdur) 30 mg DAILY PO 08/17/16 09:00 08/21/16 08:56 Lorazepam (Ativan) 3 mg HS PO 08/16/16 21:00 08/20/16 21:21 Multivitamins/ Minerals Therapeutic (Theragran M Tab) 1 tab DAILY PO 08/17/16 09:00 08/21/16 08:56 Mycophenolate Mofetil (Cellcept) 500 mg BID@ PO 08/16/16 18:00 08/21/16 05:51 Prednisone (Deltasone) 5 mg DAILY PO 08/17/16 09:00 08/21/16 08:56 Pregabalin (Lyrica) 25 mg TID PO 08/16/16 18:00 08/21/16 13:46 Sodium Bicarbonate (Sodium Bicarbonate) 650 mg BIDPC PO 08/16/16 18:00 08/21/16 08:56 Ferrous Sulfate (Ferrous Sulfate) 325 mg DAILY PO 08/17/16 09:00 08/21/16 08:56 Nifedipine (Procardia Xl) 30 mg BID PO 08/17/16 21:00 08/21/16 08:56 Tacrolimus (Prograf) 3 mg DAILY@,18 PO 08/18/16 18:00 08/21/16 05:51 Oxycodone/ Acetaminophen (Percocet 10-325 Mg) 1 tab Q6H PRN PO PAIN SCALE 6 TO 10 08/19/16 09:45 08/21/16 15:26 Clonidine (Catapres) 0.2 mg Q8H PO 08/20/16 10:00 08/21/16 08:56 Carvedilol 12.5 mg 12.5 mg BID PO 08/20/16 21:00 08/21/16 08:56 Piperacillin Sod/ Tazobactam Sod (Zosyn 2.25 Gm Premix) 50 ml @ 100 mls/hr Q8H IV 08/20/16 14:00 08/21/16 13:46 Furosemide (Lasix) 40 mg DAILY PO 08/21/16 09:00 08/21/16 08:56 A/P Problem List: (1) Shortness of breath ICD Code: R06.02 Assessment & Plan: Related to COPD Treat as below (2) Hypoxia ICD Code: R09.02 Assessment & Plan: Start PRN Albuterol Start Q8hr Duonebs schedualed Follow oxygen saturations Wean oxygen if possible (3) Foot ulcer ICD Code: L97.509 Assessment & Plan: Podiatry following I&D Continue wound debridement will clean for closure (4) DM (diabetes mellitus) ICD Code: E11.9 Assessment & Plan: Follow blood sugars Diabetic Diet SS Insulin (5) Acute on chronic diastolic (congestive) heart failure ICD Code: I50.33 Assessment & Plan: Carvedilol Lasix Stabalzied Follow with cardiology as an outpatient (6) Hypertension ICD Code: I10 Assessment & Plan: Lasix resumed BP improved through the afternoon on Lasix Follow BP (7) Hyperkalemia ICD Code: E87.5 Assessment & Plan: Slow downward trend, may normalized by tomorrow Follow potassium Problem Qualifiers (1) DM (diabetes mellitus): (2) Hypertension: Qualified Code: I10 - Essential hypertension Dante Morton MD Aug 21, 2016 17:08
[2016-08-21] MEDS: LORazepam 1 MG TAB PO SCH (20:57)
[2016-08-22] VITALS (11 sets, daily range): BP systolic 156–188; BP diastolic 70–84; PULSE 60–68; RESP 16–20; TEMP 97.4–98; O2SAT 92–98
[2016-08-22] MEDS: cloNIDine HCL 0.2 MG TAB PO SCH ×3 (02:37→17:02)
[2016-08-22] MEDS: oxyCODONE/ACETAMINOPHEN 10 MG/325 MG TAB PO PRN ×4 (04:40→23:06)
[2016-08-22] MEDS: MYCOPHENOLATE MOFETIL 500 MG TAB PO SCH ×2 (05:32→17:02)
[2016-08-22] MEDS: TACROLIMUS 1 MG CAP PO SCH ×2 (05:33→17:02)
[2016-08-22] MEDS: PIPERACIL-TAZO 2.25 GM PREMIX 50 ML IV SCH ×3 (05:34→21:12)
[2016-08-22] MEDS: INSULIN ASPART SUPPLEMENTAL SCALE SQ SCH ×4 (06:24→21:12)
--- NOTE | 2016-08-22 08:31 | PD.POD ---
Subjective Podiatric Problems 66-year-old diabetic presents with abscess in the third interspace of the left foot. MRI showed abscess formation. Patient had pus expressed from the area during surgery. Patient complaining of minimal pain or discomfort. Intraoperative culture was growing staph aureus. Pain scale used: 0-10 numeric scale Pain score: 2 Remarks History of renal transplant. History of CHF. Patient was seen in the wound center on the and had pus expressed from the area. He was hospitalized for shortness of breath since that time. He was taken to the OR on Saturday and had an I&D performed of the third interspace of the left foot. Staph was growing from the wound. Repeat culture from yesterday has no growth on Gram stain. Past Med/Surg/Social History Past Medical History HEENT: REPORTS HX OF: Other HEENT history (Sam's syndrom) Endocrine: REPORTS HX OF: Diabetes mellitus Respiratory: REPORTS HX OF: COPD Genitourinary: REPORTS HX OF: Kidney failure, Other history (kidney transplant) Infectious disease: REPORTS HX OF: Chickenpox, Other inf disease history ( shingles) Psychiatric: REPORTS HX OF: Anxiety Disabilities: REPORTS HX OF: Hearing deficit Past Surgical History Cardiovascular: REPORTS HX OF: Other cardiac surgery Genitourinary: REPORTS HX OF: Other surgery (kidney transplant, stents ) Musculoskeletal: REPORTS HX OF: Other musculoskeletal srg (rt knee) Social History Smoking Status: Former Smoker Review of Systems Notes No changes in his 14 point review of systems exam from yesterday Objective Vital Signs Vital Signs Date Time Temp Pulse Resp B/P Pulse Ox O2 Delivery O2 Flow Rate FiO2 08/22/16 04:36 98.0 61 18 168/77 94 08/22/16 02:22 66 08/22/16 00:37 156/70 08/22/16 00:00 97.5 67 18 178/78 94 08/21/16 21:35 High Flow Nasal Cannula 3.00 08/21/16 21:00 Nasal Cannula 2.00 08/21/16 20:15 97.3 66 18 185/77 95 08/21/16 16:00 97.3 65 18 147/67 97 08/21/16 12:00 97.4 54 18 141/63 97 08/21/16 10:15 93 Nasal Cannula 3.00 08/21/16 08:30 Nasal Cannula 2.00 Coded Allergies: No Known Allergies (Unverified , 08/16/16) Medications and IVs Current Medications Furosemide (Lasix Inj) 40 mg ONCE ONCE IV PUSH Last administered on 08/16/16 11:30; Start 08/16/16 at 11:30; Stop 08/16/16 at 11:31; Status DC Albuterol Sulfate (Albuterol Neb) 2.5 mg ONCE ONCE INH Last administered on 11:39; Start 08/16/16 at 11:45; Stop 08/16/16 at 11:46; Status DC Sodium Chloride (NS Flush) 2 ml UNSCH PRN IV FLUSH FLUSH AFTER USING IV ACCESS ; Start 08/16/16 at 15:15 Sodium Chloride (NS Flush) 2 ml BID IV FLUSH Last administered on 08/21/16 21: 04; Start 08/16/16 at 21:00 Heparin Sodium (Porcine) (Heparin Inj) 5,000 units Q8H SQ Last administered on 08/21/16 23:43; Start 08/16/16 at 16:00 Clonidine (Catapres) 0.1 mg DAILY PO Last administered on 08/18/16 09:26; Start 08/16/16 at 17:45; Stop 08/18/16 at 15:10; Status DC Docusate Sodium (Colace) 100 mg BID PO Last administered on 08/21/16 20:56; Start 08/16/16 at 21:00 Acetaminophen/ Hydrocodone Bitart ([place] 10-325 Mg) 1 tab TID PRN PO PAIN Last administered on 08/18/16 18:31; Start 08/16/16 at 17:45; Stop 08/19/16 at 09:36 ; Status DC Insulin Detemir (Levemir Inj) 22 units HS SQ Last administered on 08/16/16 20: 59; Start 08/16/16 at 21:00; Status Hold Isosorbide Mononitrate (Imdur) 30 mg DAILY PO Last administered on 08/21/16 08 :56; Start 08/17/16 at 09:00 Labetalol HCl (Trandate) 200 mg BID PO Last administered on 08/18/16 09:27; Start 08/16/16 at 21:00; Stop 08/18/16 at 15:12; Status DC Lorazepam (Ativan) 3 mg HS PO Last administered on 08/21/16 20:57; Start 08/16 at 21:00 Multivitamins/ Minerals Therapeutic (Theragran M Tab) 1 tab DAILY PO Last administered on 08/21/16 08:56; Start 08/17/16 at 09:00 Mycophenolate Mofetil (Cellcept) 500 mg BID@ PO Last administered on 05:32; Start 08/16/16 at 18:00 Nifedipine (Procardia Xl) 30 mg HS PO Last administered on 08/16/16 20:58; Start 08/16/16 at 21:00; Stop 08/17/16 at 11:44; Status DC Polyethylene Glycol (Miralax) 17 gm DAILY PRN PO CONSTIPATION; Start 08/16/16 at 17:45 Prednisone (Deltasone) 5 mg DAILY PO Last administered on 08/21/16 08:56; Start 08/17/16 at 09:00 Pregabalin (Lyrica) 25 mg TID PO Last administered on 08/21/16 17:03; Start at 18:00 Sodium Bicarbonate (Sodium Bicarbonate) 650 mg BIDPC PO Last administered on 17:03; Start 08/16/16 at 18:00 Tacrolimus (Prograf) 3 mg Q12H PO ; Start 08/16/16 at 18:00; Stop 08/16/16 at 18 :10; Status DC Ferrous Sulfate (Ferrous Sulfate) 325 mg DAILY PO Last administered on 08:56; Start 08/17/16 at 09:00 Patient Own Medication PT OWN MED: Linaclot... DAILY PRN PO CONSTIPATION; Start 08/16/16 at 17:45 Tacrolimus (Prograf) 3 mg DAILY@ PO Last administered on 08/18/16 06:37; Start 08/16/16 at 18:15; Stop 08/18/16 at 16:06; Status DC Furosemide (Lasix Inj) 40 mg DAILY IV PUSH Last administered on 08/17/16 08:45 ; Start 08/17/16 at 09:00; Stop 08/17/16 at 15:32; Status DC Trimethoprim/ Sulfamethoxazole (Bactrim Ds 800-160 Mg) 1 tab BID PO Last administered on 08/20/16 08:40; Start 08/16/16 at 21:00; Stop 08/20/16 at 13:00 ; Status DC Dextrose (D50w (Vial) Inj) 25 ml UNSCH PRN IV PUSH HYPOGLYCEMIA-SEE COMMENTS; Start 08/17/16 at 05:00 Glucagon (Glucagon Inj) 1 mg UNSCH PRN OTHER HYPOGLYCEMIA-SEE COMMENTS; Start 08/17/16 at 05:00 Insulin Aspart (NovoLOG SUPPLEMENTAL SCALE) 1 ACHS SLIDING SCALE SQ Last administered on 08/22/16 06:24; Start 08/17/16 at 07:00 Nifedipine (Procardia Xl) 30 mg BID PO Last administered on 08/21/16 20:56; Start 08/17/16 at 21:00 Nifedipine (Procardia Xl) 30 mg ONCE ONCE PO Last administered on 08/17/16 15 :07; Start 08/17/16 at 12:00; Stop 08/17/16 at 12:01; Status DC Furosemide (Lasix Inj) 20 mg DAILY IV PUSH Last administered on 08/18/16 09:29 ; Start 08/18/16 at 09:00; Stop 08/18/16 at 15:12; Status DC Regadenoson (Lexiscan Inj) 0.4 mg STK-MED ONCE .ROUTE Last administered on 08/18 09:22; Start 08/18/16 at 09:22; Stop 08/18/16 at 09:23; Status DC Aminophylline (Aminophylline Inj) 250 mg STK-MED ONCE .ROUTE Last administered on 08/18/16 10:45; Start 08/18/16 at 10:45; Stop 08/18/16 at 10:46; Status DC Clonidine (Catapres) 0.1 mg Q8H PO Last administered on 08/20/16 08:40; Start 08/18/16 at 17:00; Stop 08/20/16 at 08:50; Status DC Tacrolimus (Prograf) 3 mg DAILY@18 PO Last administered on 08/22/16 05:33; Start 08/18/16 at 18:00 Bupivacaine HCl (Marcaine Pf 0.5% Inj) 30 ml STK-MED ONCE .ROUTE Last administered on 08/19/16 09:14; Start 08/19/16 at 07:46; Stop 08/19/16 at 07:47 ; Status DC Sodium Chloride (NS Flush) 2 ml UNSCH PRN IV FLUSH FLUSH AFTER USING IV ACCESS ; Start 08/19/16 at 09:45; Stop 08/19/16 at 09:45; Status DC Sodium Chloride (NS Flush) 2 ml BID IV FLUSH ; Start 08/19/16 at 21:00; Stop at 21:00; Status DC Miscellaneous Information (Post-op Orders (for Pharmacy)) STAT ONCE XX ; Start 08/19/16 at 09:45; Stop 08/19/16 at 09:46; Status DC Oxycodone/ Acetaminophen (Percocet 5-325 Mg) 1 tab Q6H PRN PO PAIN SCALE 3 TO 5; Start 08/19/16 at 09:45 Oxycodone/ Acetaminophen (Percocet 10-325 Mg) 1 tab Q6H PRN PO PAIN SCALE 6 TO 10 Last administered on 08/22/16 04:40; Start 08/19/16 at 09:45 Morphine Sulfate (Morphine Inj) 4 mg Q3H PRN IV BREAKTHROUGH PAIN; Start at 09:45 Naloxone HCl (Narcan Inj) 0.4 mg UNSCH PRN IV SEE LABEL COMMENTS; Start at 09:45 Fentanyl Citrate (fentaNYL INJ) 100 mcg STK-MED ONCE .ROUTE ; Start 08/19/16 at 09:41; Stop 08/19/16 at 09:42; Status DC Carvedilol (Coreg) 6.25 mg BID PO Last administered on 08/20/16 08:40; Start 08/19/16 at 10:30; Stop 08/20/16 at 09:51; Status DC Insulin Human Regular (NovoLIN R INJ) 10 units ONCE ONCE IV PUSH ; Start at 18:30; Stop 08/19/16 at 18:31; Status DC Sodium Polystyrene Sulfonate (Kayexalate Liq) 15 gm ONCE ONCE PO Last administered on 08/19/16 18:24; Start 08/19/16 at 18:30; Stop 08/19/16 at 18:31 ; Status DC Clonidine (Catapres) 0.2 mg Q8H PO Last administered on 08/22/16 02:37; Start 08/20/16 at 10:00 Carvedilol (Coreg) 12.5 mg BID PO Last administered on 08/21/16 20:56; Start 08/20/16 at 21:00 Sodium Polystyrene Sulfonate (Kayexalate Liq) 15 gm ONCE ONCE PO Last administered on 08/20/16 13:22; Start 08/20/16 at 13:00; Stop 08/20/16 at 13:01 ; Status DC Polyethylene Glycol 17 gm 17 gm ONCE ONCE PO Last administered on 08/20/16 13 :22; Start 08/20/16 at 13:00; Stop 08/20/16 at 13:01; Status DC Vancomycin HCl 1000 mg/Sodium Chloride 250 ml @ 250 mls/hr ONCE ONCE IV Last administered on 08/20/16 13:23; Start 08/20/16 at 13:00; Stop 08/20/16 at 13:59 ; Status DC Piperacillin Sod/ Tazobactam Sod (Zosyn 2.25 Gm Premix) 50 ml @ 100 mls/hr Q8H IV Last administered on 08/22/16 05:34; Start 08/20/16 at 14:00 Furosemide (Lasix) 40 mg DAILY PO Last administered on 08/21/16 08:56; Start 08/21/16 at 09:00 Albuterol/ Ipratropium (Duoneb Neb) 1 ampule Q8HR WHILE AWAKE NEB NEB Last administered on 08/21/16 16:29; Start 08/21/16 at 11:00 Albuterol Sulfate (Albuterol Neb) 2.5 mg Q4HR NEB PRN NEB Dyspnea; Start at 11:00 Albumin Human (Albumin 25% Inj) 25 gm ONCE ONCE IV Last administered on 14:20; Start 08/21/16 at 13:00; Stop 08/21/16 at 13:01; Status DC Furosemide (Lasix Inj) 20 mg ONCE ONCE IV PUSH Last administered on 08/21/16 13:46; Start 08/21/16 at 14:00; Stop 08/21/16 at 14:01; Status DC Other Results Laboratory Tests Test 08/20/16 08/21/16 10:44 07:07 White Blood Count 6.1 TH/MM3 5.9 TH/MM3 Red Blood Count 4.07 MIL/MM3 4.05 MIL/MM3 Hemoglobin 11.5 GM/DL 11.5 GM/DL Hematocrit 36.1 % 36.0 % Mean Corpuscular Volume 88.7 FL 88.9 FL Mean Corpuscular Hemoglobin 28.4 PG 28.4 PG Mean Corpuscular Hemoglobin 32.0 % 32.0 % Concent Red Cell Distribution Width 16.1 % 16.7 % Platelet Count 131 TH/MM3 129 TH/MM3 Mean Platelet Volume 8.9 FL 9.2 FL Neutrophils (%) (Auto) 82.7 % Lymphocytes (%) (Auto) 9.0 % Monocytes (%) (Auto) 6.8 % Eosinophils (%) (Auto) 1.0 % Basophils (%) (Auto) 0.5 % Neutrophils # (Auto) 4.9 TH/MM3 Lymphocytes # (Auto) 0.5 TH/MM3 Monocytes # (Auto) 0.4 TH/MM3 Eosinophils # (Auto) 0.1 TH/MM3 Basophils # (Auto) 0.0 TH/MM3 CBC Comment DIFF FINAL Differential Comment Laboratory Tests Test 08/20/16 08/21/16 10:44 07:07 Sodium Level 136 MEQ/L 135 MEQ/L Potassium Level 5.5 MEQ/L 5.2 MEQ/L Chloride Level 106 MEQ/L 104 MEQ/L Carbon Dioxide Level 25.0 MEQ/L 19.7 MEQ/L Anion Gap 5 MEQ/L 11 MEQ/L Blood Urea Nitrogen 57 MG/DL 58 MG/DL Creatinine 2.76 MG/DL 2.88 MG/DL Estimat Glomerular Filtration 23 ML/MIN 22 ML/MIN Rate Random Glucose 186 MG/DL 288 MG/DL Calcium Level 8.7 MG/DL 9.0 MG/DL Phosphorus Level 3.2 MG/DL Magnesium Level 2.5 MG/DL Total Bilirubin 1.1 MG/DL Aspartate Amino Transf 14 U/L (AST/SGOT) Alanine Aminotransferase 32 U/L (ALT/SGPT) Alkaline Phosphatase 106 U/L Total Protein 6.0 GM/DL Albumin 3.2 GM/DL Microbiology Date/Time Procedure Status Source Growth 08/19/16 09:18 Gram Stain - Final Complete Wound Finger 08/19/16 09:18 Wound Culture - Final Complete Staphylococcus Aureus 08/21/16 12:00 Gram Stain - Final Resulted Wound Foot 08/21/16 12:00 Wound Culture Resulted Wound Foot Pending Objective Remarks Last Impressions Renal Ultrasound 08/17/16 0000 Signed Impressions: Service Date/Time: Wednesday, August 17, 2016 11:26 - CONCLUSION: 1. Normal ultrasound appearance of the right lower quadrant renal transplant with normal vascular assessment. 2. Chronic fluid collection at the lower pole of the transplant kidney measuring up to 3.5 cm. It has slightly decreased in size since the prior study. 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 Derrek Byrd MD Myocardial Perfusion Scan Nuc Med 08/17/16 0000 Signed Impressions: Service Date/Time: Wednesday, August 17, 2016 11:42 - CONCLUSION: Global hypokinesis and reduction in ejection fraction and no significant ischemia. RISK CATEGORY: Intermediate (1-3%% Annual Mortality Rate) Guillermo Frausto MD Foot MRI 08/17/16 0000 Signed Impressions: Service Date/Time: Wednesday, August 17, 2016 19:17 - CONCLUSION: Multilocular fluid intensity collection as described above which may reflect abscess. Skin thickening and subcutaneous edema is also present dorsally characteristic of cellulitis. No evidence of osteomyelitis Alejandro Morales MD Chest X-Ray 08/16/16 1114 Signed Impressions: Service Date/Time: August 11:58 - CONCLUSION: Changes most characteristic of congestive heart failure with pulmonary edema and small effusions now noted. Robin Reid MD Exam-Podiatry Constitutional General appearance: comfortable Nutritional status: normal Orientation: alert and oriented x3 Dermatological Exam Skin Temp - Right: Within Normal Limits Skin Texture - Right: Within Normal Limits Skin Elasticity - Right: Within Normal Limits Skin Tugor - Right: Within Normal Limits Hair Growth - Right: Within Normal Limits Pigmentation - Right: Within Normal Limits Skin Temp - Left: Within Normal Limits Skin Texture - Left: Within Normal Limits Skin Elasticity - Left: Within Normal Limits Skin Tugor - Left: Within Normal Limits Hair Growth - Left: Within Normal Limits Pigmentation - Left: Within Normal Limits Ulcers: Location/Measurements Dressing dry and intact the left foot. Vascular/Lymphatic Exam R Dorsails Pedis: Palpable L Dorsails Pedis: Palpable R Posterior Tibial: Palpable L Posterior Tibial: Palpable Neurologic Exam Present on right: Tingling, Paraesthesia Present on left: Tingling, Paraesthesia Musculoskeletal Exam Details Open abscess site third interspace left foot Muscle Strength Dorsiflexion (Right): Normal Plantarflexion (Right): Normal Inversion (Right): Normal Eversion (Right): Normal Digital (Right): Normal Dorsiflexion (Left): Normal Plantarflexion (Left): Normal Inversion (Left): Normal Eversion (Left): Normal Digital (Left): Normal Foot Range of Motion Dorsiflexion (Right): Normal Plantarflexion (Right): Normal Inversion (Right): Normal Eversion (Right): Normal Digital (Right): Normal Dorsiflexion (Left): Normal Plantarflexion (Left): Normal Inversion (Left): Normal Eversion (Left): Normal Digital (Left): Normal Assessment & Plan Diagnosis: (1) Abscess of left foot Status: Acute A/P PLAN: Await culture report from yesterday. Once the wound is clean he can be returned to the OR for primary closure. If we cannot get the wound clean we can discharge him with follow-up in the wound center for local wound care. Continue to follow Chung Bustillo DPM Aug 22, 2016 08:31
[2016-08-22] MEDS: SODIUM CHLORIDE 0.9% FLUSH 10 ML FLUSH IV FLUSH SCH ×2 (09:00→21:13)
[2016-08-22] MEDS: RESP: ALBUTEROL 2.5 MG/IPRATROPIUM 0.5 MG NEB (SCH) NEB ×2 (09:11→15:56)
[2016-08-22] MEDS: FUROSEMIDE 40 MG TAB PO SCH (09:28)
[2016-08-22] MEDS: MULTIVITAMINS/MINERALS THERAPEUTIC TAB PO SCH (09:28)
[2016-08-22] MEDS: DOCUSATE SODIUM 100 MG CAP PO SCH ×2 (09:28→21:11)
[2016-08-22] MEDS: predniSONE 5 MG TAB PO SCH (09:28)
[2016-08-22] MEDS: SODIUM BICARBONATE 650 MG TAB PO SCH ×2 (09:28→17:02)
[2016-08-22] MEDS: NIFEdipine 30 MG SUSTAINED RELEASE TAB PO SCH ×2 (09:28→21:10)
[2016-08-22] MEDS: ISOSORBIDE MONONITRATE 30 MG TAB PO SCH (09:28)
[2016-08-22] MEDS: FERROUS SULFATE 325 MG (65 MG ELEMENTAL IRON) TAB PO SCH (09:28)
[2016-08-22] MEDS: CARVEDILOL 12.5 MG TAB PO SCH ×2 (09:28→21:10)
[2016-08-22] MEDS: PREGABALIN 25 MG CAP PO SCH ×3 (09:28→17:02)
[2016-08-22] MEDS: HEPARIN SODIUM - SQ 10,000 UNITS/ML VIAL SQ SCH ×3 (09:29→23:07)
--- NOTE | 2016-08-22 16:54 | HHI.PR ---
Subjective Remarks Breathing is improved on COPD treatments. Now off oxygen and weened to room air. No distress. Objective Vital Signs Date Time Temp Pulse Resp B/P Pulse Ox O2 Delivery O2 Flow Rate FiO2 08/22/16 15:56 92 21 08/22/16 12:00 97.8 68 18 168/75 94 08/22/16 09:14 98 Nasal Cannula 3.00 08/22/16 09:00 60 08/22/16 08:00 97.9 68 20 180/81 94 08/22/16 04:36 98.0 61 18 168/77 94 08/22/16 02:22 66 08/22/16 00:37 156/70 08/22/16 00:00 97.5 67 18 178/78 94 08/21/16 21:35 High Flow Nasal Cannula 3.00 08/21/16 21:00 Nasal Cannula 2.00 08/21/16 20:15 97.3 66 18 185/77 95 I/O 08/21/16 08/21/16 08/21/16 08/22/16 08/22/16 08/22/16 07:00 15:00 23:00 07:00 15:00 23:00 Intake Total 580 ml 1114 ml 480 ml 240 ml Output Total 575 ml 1200 ml Balance 5 ml 1114 ml 480 ml -960 ml Intake Oral 480 ml 960 ml 480 ml 240 ml IV Total 100 ml 54 ml Albumin 100 ml Output Urine Total 575 ml 1200 ml # Voids 1 3 2 # Bowel Movements 0 1 1 Result Diagram: 08/21/16 0707 08/21/16 0707 Objective Remarks GENERAL: A&Ox3, NAD SKIN: Warm and dry. HEAD: Normocephalic. EYES: No scleral icterus. No injection or drainage. NECK: Supple, trachea midline. No JVD or lymphadenopathy. CARDIOVASCULAR: Regular rate and rhythm without murmurs, gallops, or rubs. RESPIRATORY: Breath sounds equal bilaterally. No accessory muscle use. No wheezing. Crackles at bases. GASTROINTESTINAL: Abdomen soft, non-tender, nondistended. MUSCULOSKELETAL: No cyanosis, or edema. BACK: Nontender without obvious deformity. No CVA tenderness. Medications and IVs Administered Medications Medications (Trade) Dose Ordered Sig/Rai Route PRN Reason Start Time Stop Time Status Last Admin Dose Admin Sodium Chloride (NS Flush) 2 ml BID IV FLUSH 08/16/16 21:00 08/22/16 09:00 Heparin Sodium (Porcine) (Heparin Inj) 5,000 units Q8H SQ 08/16/16 16:00 08/22/16 09:29 Docusate Sodium (Colace) 100 mg BID PO 08/16/16 21:00 08/22/16 09:28 Insulin Detemir (Levemir Inj) 22 units HS SQ 08/16/16 21:00 Hold 08/16/16 20:59 Isosorbide Mononitrate (Imdur) 30 mg DAILY PO 08/17/16 09:00 08/22/16 09:28 Lorazepam (Ativan) 3 mg HS PO 08/16/16 21:00 08/21/16 20:57 Multivitamins/ Minerals Therapeutic (Theragran M Tab) 1 tab DAILY PO 08/17/16 09:00 08/22/16 09:28 Mycophenolate Mofetil (Cellcept) 500 mg BID@ PO 08/16/16 18:00 08/22/16 05:32 Prednisone (Deltasone) 5 mg DAILY PO 08/17/16 09:00 08/22/16 09:28 Pregabalin (Lyrica) 25 mg TID PO 08/16/16 18:00 08/22/16 13:36 Sodium Bicarbonate (Sodium Bicarbonate) 650 mg BIDPC PO 08/16/16 18:00 08/22/16 09:28 Ferrous Sulfate (Ferrous Sulfate) 325 mg DAILY PO 08/17/16 09:00 08/22/16 09:28 Nifedipine (Procardia Xl) 30 mg BID PO 08/17/16 21:00 08/22/16 09:28 Tacrolimus (Prograf) 3 mg DAILY@,18 PO 08/18/16 18:00 08/22/16 05:33 Oxycodone/ Acetaminophen (Percocet 10-325 Mg) 1 tab Q6H PRN PO PAIN SCALE 6 TO 10 08/19/16 09:45 08/22/16 11:04 Clonidine 0.2 mg 0.2 mg Q8H PO 08/20/16 10:00 08/22/16 09:28 Piperacillin Sod/ Tazobactam Sod (Zosyn 2.25 Gm Premix) 50 ml @ 100 mls/hr Q8H IV 08/20/16 14:00 08/22/16 13:36 Furosemide (Lasix) 40 mg DAILY PO 08/21/16 09:00 08/22/16 09:28 A/P Problem List: (1) Shortness of breath ICD Code: R06.02 Assessment & Plan: Improved Related to COPD Treat as below (2) Hypoxia ICD Code: R09.02 Assessment & Plan: Resolved Continue PRN Albuterol Continue Q8hr Duonebs schedualed Follow oxygen saturations Now on room air (3) Foot ulcer ICD Code: L97.509 Assessment & Plan: Podiatry following I&D Continue wound debridement Podiatry will treat till adequate for closure for closure (4) DM (diabetes mellitus) ICD Code: E11.9 Assessment & Plan: Follow blood sugars Diabetic Diet SS Insulin (5) Acute on chronic diastolic (congestive) heart failure ICD Code: I50.33 Assessment & Plan: Carvedilol Lasix Stabalzied Follow with cardiology as an outpatient (6) Hypertension ICD Code: I10 Assessment & Plan: Need improvement HCTZ added Lasix continued Carvedilol continued Nifedipine continued PRN Clonidine continued (7) Hyperkalemia ICD Code: E87.5 Assessment & Plan: Continued improvement Nearing normal range Follow potassium Problem Qualifiers (1) DM (diabetes mellitus): (2) Hypertension: Qualified Code: I10 - Essential hypertension Dante Morton MD Aug 22, 2016 16:54
[2016-08-22] MEDS: HYDROCHLOROTHIAZIDE 12.5 MG CAP PO SCH (17:19)
[2016-08-22] MEDS: LORazepam 1 MG TAB PO SCH (21:10)
[2016-08-23] VITALS (10 sets, daily range): BP systolic 147–166; BP diastolic 64–74; PULSE 56–72; RESP 16–19; TEMP 97.3–98; O2SAT 93–97
[2016-08-23] MEDS: cloNIDine HCL 0.2 MG TAB PO SCH ×3 (01:43→17:54)
[2016-08-23] MEDS: PIPERACIL-TAZO 2.25 GM PREMIX 50 ML IV SCH ×3 (05:37→21:30)
[2016-08-23] MEDS: MYCOPHENOLATE MOFETIL 500 MG TAB PO SCH ×2 (05:37→17:55)
[2016-08-23] MEDS: TACROLIMUS 1 MG CAP PO SCH ×2 (05:37→17:55)
[2016-08-23] MEDS: oxyCODONE/ACETAMINOPHEN 10 MG/325 MG TAB PO PRN ×3 (05:42→20:15)
[2016-08-23] MEDS: INSULIN ASPART SUPPLEMENTAL SCALE SQ SCH ×4 (06:15→20:14)
[2016-08-23] MEDS: HYDROCHLOROTHIAZIDE 12.5 MG CAP PO SCH (09:00)
[2016-08-23] MEDS: NIFEdipine 30 MG SUSTAINED RELEASE TAB PO SCH ×2 (09:03→20:13)
[2016-08-23] MEDS: DOCUSATE SODIUM 100 MG CAP PO SCH ×2 (09:03→20:13)
[2016-08-23] MEDS: FUROSEMIDE 40 MG TAB PO SCH (09:03)
[2016-08-23] MEDS: RESP: ALBUTEROL 2.5 MG/IPRATROPIUM 0.5 MG NEB (SCH) NEB ×2 (09:03→20:10)
[2016-08-23] MEDS: FERROUS SULFATE 325 MG (65 MG ELEMENTAL IRON) TAB PO SCH (09:05)
[2016-08-23] MEDS: HEPARIN SODIUM - SQ 10,000 UNITS/ML VIAL SQ SCH ×3 (09:05→23:18)
[2016-08-23] MEDS: PREGABALIN 25 MG CAP PO SCH ×3 (09:05→17:55)
[2016-08-23] MEDS: ISOSORBIDE MONONITRATE 30 MG TAB PO SCH (09:05)
[2016-08-23] MEDS: SODIUM BICARBONATE 650 MG TAB PO SCH ×2 (09:05→17:54)
[2016-08-23] MEDS: predniSONE 5 MG TAB PO SCH (09:05)
[2016-08-23] MEDS: MULTIVITAMINS/MINERALS THERAPEUTIC TAB PO SCH (09:05)
[2016-08-23] MEDS: SODIUM CHLORIDE 0.9% FLUSH 10 ML FLUSH IV FLUSH SCH ×2 (09:06→20:15)
[2016-08-23] MEDS: CARVEDILOL 12.5 MG TAB PO SCH (10:12)
--- NOTE | 2016-08-23 13:52 | HHI.NPPN ---
Subjective History of Present Illness 66 year old with kidney transplant l foot infection Review of Systems General Constitutional: Fatigue Musculoskeletal MS: Pain/Stiffness Objective Data Data 08/22/16 08/23/16 19:00 07:00 Intake Total 960 ml 480 ml Output Total 1700 ml 2500 ml Balance -740 ml -2020 ml Intake Oral 960 ml 480 ml Output Urine Total 1700 ml 2500 ml # Bowel Movements 2 0 Vital Signs Date Time Temp Pulse Resp B/P Pulse Ox O2 Delivery O2 Flow Rate FiO2 08/23/16 12:15 97.5 64 18 147/69 95 08/23/16 09:40 Room Air 08/23/16 09:16 57 08/23/16 08:21 97.3 57 19 148/70 95 08/23/16 08:08 56 08/23/16 06:33 67 08/23/16 04:00 98.0 61 16 157/74 93 08/23/16 00:00 97.5 59 18 161/74 95 08/22/16 21:15 93 Nasal Cannula 2.00 08/22/16 20:00 97.7 65 16 165/77 94 08/22/16 16:00 97.4 64 18 188/84 92 08/22/16 15:56 92 21 -: 08/21/16 0707 08/21/16 0707 Physical Exam General Appearance: Well Developed, Well Nourished Pulmonary Resp Exam: Clear Bilaterally, Breath Sounds Equal Cardiology CV Exam: Regular, Normal Sinus Rhythm Gastrointestinal/Abdomen GI Exam: Soft, Non-Tender, Bowel Sounds Present Integumentary Skin Exam: Lesion(s) Extremeties Extremities Exam: Trace Edema Assessment/Plan Problem List: (1) Kidney transplant status, cadaveric Plan: Patient doing well he states HCTZ and Lasix has compromised His creatinine and do not wish to add another diuretic as he take Lasix I therefore dc HCTZ monitor BMP L foot better (2) Diastolic heart failure Plan: blood pressure improved (3) DM (diabetes mellitus) Plan: Monitor (4) Abscess of left foot Plan: Biostatistician following POST surgery (5) Hypertension Plan: blood pressure better Problem Qualifiers (1) DM (diabetes mellitus): (2) Hypertension: Qualified Code: I10 - Essential hypertension Stacy Dias MD Aug 23, 2016 13:52
--- NOTE | 2016-08-23 15:50 | HHI.PR ---
Subjective Remarks Stable off oxygen now. BP is not yet controlled. At home he was on labetalol rather than Coreg and he would like to try to see if labetalol would control his BP better (reports control at home). No other complaints today. Objective Vital Signs Date Time Temp Pulse Resp B/P Pulse Ox O2 Delivery O2 Flow Rate FiO2 08/23/16 12:15 97.5 64 18 147/69 95 08/23/16 09:40 Room Air 08/23/16 09:16 57 08/23/16 08:21 97.3 57 19 148/70 95 08/23/16 08:08 56 08/23/16 06:33 67 08/23/16 04:00 98.0 61 16 157/74 93 08/23/16 00:00 97.5 59 18 161/74 95 08/22/16 21:15 93 Nasal Cannula 2.00 08/22/16 20:00 97.7 65 16 165/77 94 08/22/16 16:00 97.4 64 18 188/84 92 08/22/16 15:56 92 21 I/O 08/22/16 08/22/16 08/22/16 08/23/16 08/23/16 08/23/16 07:00 15:00 23:00 07:00 15:00 23:00 Intake Total 240 ml 960 ml 240 ml 240 ml Output Total 1200 ml 1700 ml 500 ml 2000 ml Balance -960 ml -740 ml -260 ml -1760 ml Intake Oral 240 ml 960 ml 240 ml 240 ml Output Urine Total 1200 ml 1700 ml 500 ml 2000 ml # Bowel Movements 2 0 0 Result Diagram: 08/21/16 0707 08/21/16 0707 Objective Remarks GENERAL: A&Ox3, NAD SKIN: Warm and dry. HEAD: Normocephalic. EYES: No scleral icterus. No injection or drainage. NECK: Supple, trachea midline. No JVD or lymphadenopathy. CARDIOVASCULAR: Regular rate and rhythm without murmurs, gallops, or rubs. RESPIRATORY: Breath sounds equal bilaterally. No accessory muscle use. No wheezing. Crackles at bases. GASTROINTESTINAL: Abdomen soft, non-tender, nondistended. MUSCULOSKELETAL: No cyanosis, or edema. BACK: Nontender without obvious deformity. No CVA tenderness. A/P Problem List: (1) Shortness of breath ICD Code: R06.02 Assessment & Plan: Improved Related to COPD Treat as below (2) Hypoxia ICD Code: R09.02 Assessment & Plan: Resolved Continue PRN Albuterol Continue Q8hr Duonebs schedualed Follow oxygen saturations Now on room air (3) Foot ulcer ICD Code: L97.509 Assessment & Plan: Podiatry following I&D Continue wound debridement Podiatry will treat till adequate for closure for closure (4) DM (diabetes mellitus) ICD Code: E11.9 Assessment & Plan: Follow blood sugars Diabetic Diet SS Insulin (5) Acute on chronic diastolic (congestive) heart failure ICD Code: I50.33 Assessment & Plan: Carvedilol Lasix Stabalzied Follow with cardiology as an outpatient (6) Hypertension ICD Code: I10 Assessment & Plan: Need improvement HCTZ stopped Lasix continued and changed to BID (home dosing) Carvedilol stopped Labetalol started (home treatment) Nifedipine continued PRN Clonidine continued (7) Hyperkalemia ICD Code: E87.5 Assessment & Plan: Continued improvement Nearing normal range Follow potassium Problem Qualifiers (1) DM (diabetes mellitus): (2) Hypertension: Qualified Code: I10 - Essential hypertension Dante Morton MD Aug 23, 2016 15:50
--- NOTE | 2016-08-23 16:26 | PD.POD ---
Subjective Podiatric Problems 66-year-old diabetic presents with abscess in the third interspace of the left foot. MRI showed abscess formation. Patient had pus expressed from the area during surgery. Patient complaining of minimal pain or discomfort. Intraoperative culture was growing staph aureus. Culture obtained 2 days ago was growing staph and enterococcus. Pain scale used: 0-10 numeric scale Pain score: 2 Remarks History of renal transplant. History of CHF. Patient was seen in the wound center on the and had pus expressed from the area. He was hospitalized for shortness of breath since that time. He was taken to the OR on Saturday and had an I&D performed of the third interspace of the left foot. Staph was growing from the wound. Repeat culture from 2 days ago has staph and enterococcus. Past Med/Surg/Social History Past Medical History HEENT: REPORTS HX OF: Other HEENT history (Sam's syndrom) Endocrine: REPORTS HX OF: Diabetes mellitus Respiratory: REPORTS HX OF: COPD Genitourinary: REPORTS HX OF: Kidney failure, Other history (kidney transplant) Infectious disease: REPORTS HX OF: Chickenpox, Other inf disease history ( shingles) Psychiatric: REPORTS HX OF: Anxiety Disabilities: REPORTS HX OF: Hearing deficit Past Surgical History Cardiovascular: REPORTS HX OF: Other cardiac surgery Genitourinary: REPORTS HX OF: Other surgery (kidney transplant, stents ) Musculoskeletal: REPORTS HX OF: Other musculoskeletal srg (rt knee) Social History Smoking Status: Former Smoker Review of Systems Constitutional: COMPLAINS OF: Good general health Genitourinary: COMPLAINS OF: Renal disease Objective Vital Signs Vital Signs Date Time Temp Pulse Resp B/P Pulse Ox O2 Delivery O2 Flow Rate FiO2 08/23/16 12:15 97.5 64 18 147/69 95 08/23/16 09:40 Room Air 08/23/16 09:16 57 08/23/16 08:21 97.3 57 19 148/70 95 08/23/16 08:08 56 08/23/16 06:33 67 08/23/16 04:00 98.0 61 16 157/74 93 08/23/16 00:00 97.5 59 18 161/74 95 08/22/16 21:15 93 Nasal Cannula 2.00 08/22/16 20:00 97.7 65 16 165/77 94 Coded Allergies: No Known Allergies (Unverified , 08/16/16) Medications and IVs Current Medications Furosemide (Lasix Inj) 40 mg ONCE ONCE IV PUSH Last administered on 08/16/16 11:30; Start 08/16/16 at 11:30; Stop 08/16/16 at 11:31; Status DC Albuterol Sulfate (Albuterol Neb) 2.5 mg ONCE ONCE INH Last administered on 11:39; Start 08/16/16 at 11:45; Stop 08/16/16 at 11:46; Status DC Sodium Chloride (NS Flush) 2 ml UNSCH PRN IV FLUSH FLUSH AFTER USING IV ACCESS ; Start 08/16/16 at 15:15 Sodium Chloride (NS Flush) 2 ml BID IV FLUSH Last administered on 08/23/16 09: 06; Start 08/16/16 at 21:00 Heparin Sodium (Porcine) (Heparin Inj) 5,000 units Q8H SQ Last administered on 08/23/16 09:05; Start 08/16/16 at 16:00 Clonidine (Catapres) 0.1 mg DAILY PO Last administered on 08/18/16 09:26; Start 08/16/16 at 17:45; Stop 08/18/16 at 15:10; Status DC Docusate Sodium (Colace) 100 mg BID PO Last administered on 08/23/16 09:03; Start 08/16/16 at 21:00 Acetaminophen/ Hydrocodone Bitart (Republic 10-325 Mg) 1 tab TID PRN PO PAIN Last administered on 08/18/16 18:31; Start 08/16/16 at 17:45; Stop 08/19/16 at 09:36 ; Status DC Insulin Detemir (Levemir Inj) 22 units HS SQ Last administered on 08/16/16 20: 59; Start 08/16/16 at 21:00; Status Hold Isosorbide Mononitrate (Imdur) 30 mg DAILY PO Last administered on 08/23/16 09 :05; Start 08/17/16 at 09:00 Labetalol HCl (Trandate) 200 mg BID PO Last administered on 08/18/16 09:27; Start 08/16/16 at 21:00; Stop 08/18/16 at 15:12; Status DC Lorazepam (Ativan) 3 mg HS PO Last administered on 08/22/16 21:10; Start 08/16 at 21:00 Multivitamins/ Minerals Therapeutic (Theragran M Tab) 1 tab DAILY PO Last administered on 08/23/16 09:05; Start 08/17/16 at 09:00 Mycophenolate Mofetil (Cellcept) 500 mg BID@ PO Last administered on 05:37; Start 08/16/16 at 18:00 Nifedipine (Procardia Xl) 30 mg HS PO Last administered on 08/16/16 20:58; Start 08/16/16 at 21:00; Stop 08/17/16 at 11:44; Status DC Polyethylene Glycol (Miralax) 17 gm DAILY PRN PO CONSTIPATION; Start 08/16/16 at 17:45 Prednisone (Deltasone) 5 mg DAILY PO Last administered on 08/23/16 09:05; Start 08/17/16 at 09:00 Pregabalin (Lyrica) 25 mg TID PO Last administered on 08/23/16 14:25; Start at 18:00 Sodium Bicarbonate (Sodium Bicarbonate) 650 mg BIDPC PO Last administered on 09:05; Start 08/16/16 at 18:00 Tacrolimus (Prograf) 3 mg Q12H PO ; Start 08/16/16 at 18:00; Stop 08/16/16 at 18 :10; Status DC Ferrous Sulfate (Ferrous Sulfate) 325 mg DAILY PO Last administered on 09:05; Start 08/17/16 at 09:00 Patient Own Medication PT OWN MED: Linaclot... DAILY PRN PO CONSTIPATION; Start 08/16/16 at 17:45 Tacrolimus (Prograf) 3 mg DAILY@ PO Last administered on 08/18/16 06:37; Start 08/16/16 at 18:15; Stop 08/18/16 at 16:06; Status DC Furosemide (Lasix Inj) 40 mg DAILY IV PUSH Last administered on 08/17/16 08:45 ; Start 08/17/16 at 09:00; Stop 08/17/16 at 15:32; Status DC Trimethoprim/ Sulfamethoxazole (Bactrim Ds 800-160 Mg) 1 tab BID PO Last administered on 08/20/16 08:40; Start 08/16/16 at 21:00; Stop 08/20/16 at 13:00 ; Status DC Dextrose (D50w (Vial) Inj) 25 ml UNSCH PRN IV PUSH HYPOGLYCEMIA-SEE COMMENTS; Start 08/17/16 at 05:00 Glucagon (Glucagon Inj) 1 mg UNSCH PRN OTHER HYPOGLYCEMIA-SEE COMMENTS; Start 08/17/16 at 05:00 Insulin Aspart (NovoLOG SUPPLEMENTAL SCALE) 1 ACHS SLIDING SCALE SQ Last administered on 08/23/16 11:34; Start 08/17/16 at 07:00 Nifedipine (Procardia Xl) 30 mg BID PO Last administered on 08/23/16 09:03; Start 08/17/16 at 21:00 Nifedipine (Procardia Xl) 30 mg ONCE ONCE PO Last administered on 08/17/16 15 :07; Start 08/17/16 at 12:00; Stop 08/17/16 at 12:01; Status DC Furosemide (Lasix Inj) 20 mg DAILY IV PUSH Last administered on 08/18/16 09:29 ; Start 08/18/16 at 09:00; Stop 08/18/16 at 15:12; Status DC Regadenoson (Lexiscan Inj) 0.4 mg STK-MED ONCE .ROUTE Last administered on 08/18 09:22; Start 08/18/16 at 09:22; Stop 08/18/16 at 09:23; Status DC Aminophylline (Aminophylline Inj) 250 mg STK-MED ONCE .ROUTE Last administered on 08/18/16 10:45; Start 08/18/16 at 10:45; Stop 08/18/16 at 10:46; Status DC Clonidine (Catapres) 0.1 mg Q8H PO Last administered on 08/20/16 08:40; Start 08/18/16 at 17:00; Stop 08/20/16 at 08:50; Status DC Tacrolimus (Prograf) 3 mg DAILY@,18 PO Last administered on 08/23/16 05:37; Start 08/18/16 at 18:00 Bupivacaine HCl (Marcaine Pf 0.5% Inj) 30 ml STK-MED ONCE .ROUTE Last administered on 08/19/16 09:14; Start 08/19/16 at 07:46; Stop 08/19/16 at 07:47 ; Status DC Sodium Chloride (NS Flush) 2 ml UNSCH PRN IV FLUSH FLUSH AFTER USING IV ACCESS ; Start 08/19/16 at 09:45; Stop 08/19/16 at 09:45; Status DC Sodium Chloride (NS Flush) 2 ml BID IV FLUSH ; Start 08/19/16 at 21:00; Stop at 21:00; Status DC Miscellaneous Information (Post-op Orders (for Pharmacy)) STAT ONCE XX ; Start 08/19/16 at 09:45; Stop 08/19/16 at 09:46; Status DC Oxycodone/ Acetaminophen (Percocet 5-325 Mg) 1 tab Q6H PRN PO PAIN SCALE 3 TO 5; Start 08/19/16 at 09:45 Oxycodone/ Acetaminophen (Percocet 10-325 Mg) 1 tab Q6H PRN PO PAIN SCALE 6 TO 10 Last administered on 08/23/16 13:18; Start 08/19/16 at 09:45 Morphine Sulfate (Morphine Inj) 4 mg Q3H PRN IV BREAKTHROUGH PAIN; Start at 09:45 Naloxone HCl (Narcan Inj) 0.4 mg UNSCH PRN IV SEE LABEL COMMENTS; Start at 09:45 Fentanyl Citrate (fentaNYL INJ) 100 mcg STK-MED ONCE .ROUTE ; Start 08/19/16 at 09:41; Stop 08/19/16 at 09:42; Status DC Carvedilol (Coreg) 6.25 mg BID PO Last administered on 08/20/16 08:40; Start 08/19/16 at 10:30; Stop 08/20/16 at 09:51; Status DC Insulin Human Regular (NovoLIN R INJ) 10 units ONCE ONCE IV PUSH ; Start at 18:30; Stop 08/19/16 at 18:31; Status DC Sodium Polystyrene Sulfonate (Kayexalate Liq) 15 gm ONCE ONCE PO Last administered on 08/19/16 18:24; Start 08/19/16 at 18:30; Stop 08/19/16 at 18:31 ; Status DC Clonidine (Catapres) 0.2 mg Q8H PO Last administered on 08/23/16 01:43; Start 08/20/16 at 10:00 Carvedilol (Coreg) 12.5 mg BID PO Last administered on 08/22/16 09:28; Start 08/20/16 at 21:00; Stop 08/22/16 at 16:46; Status DC Sodium Polystyrene Sulfonate (Kayexalate Liq) 15 gm ONCE ONCE PO Last administered on 08/20/16 13:22; Start 08/20/16 at 13:00; Stop 08/20/16 at 13:01 ; Status DC Polyethylene Glycol 17 gm 17 gm ONCE ONCE PO Last administered on 08/20/16 13 :22; Start 08/20/16 at 13:00; Stop 08/20/16 at 13:01; Status DC Vancomycin HCl 1000 mg/Sodium Chloride 250 ml @ 250 mls/hr ONCE ONCE IV Last administered on 08/20/16 13:23; Start 08/20/16 at 13:00; Stop 08/20/16 at 13:59 ; Status DC Piperacillin Sod/ Tazobactam Sod (Zosyn 2.25 Gm Premix) 50 ml @ 100 mls/hr Q8H IV Last administered on 08/23/16 13:18; Start 08/20/16 at 14:00 Furosemide (Lasix) 40 mg DAILY PO Last administered on 08/23/16 09:03; Start 08/21/16 at 09:00; Stop 08/23/16 at 15:44; Status DC Albuterol/ Ipratropium (Duoneb Neb) 1 ampule Q8HR WHILE AWAKE NEB NEB Last administered on 08/23/16 09:03; Start 08/21/16 at 11:00; Stop 08/23/16 at 15:48 ; Status DC Albuterol Sulfate (Albuterol Neb) 2.5 mg Q4HR NEB PRN NEB Dyspnea; Start at 11:00 Albumin Human (Albumin 25% Inj) 25 gm ONCE ONCE IV Last administered on 14:20; Start 08/21/16 at 13:00; Stop 08/21/16 at 13:01; Status DC Furosemide (Lasix Inj) 20 mg ONCE ONCE IV PUSH Last administered on 08/21/16 13:46; Start 08/21/16 at 14:00; Stop 08/21/16 at 14:01; Status DC Carvedilol (Coreg) 12.5 mg Q12HR PO Last administered on 08/23/16t 10:12; Start 08/22/16 at 21:00; Stop 08/23/16 at 15:46; Status DC Hydrochlorothiazide (Microzide) 12.5 mg BID@,18 PO ; Start 08/22/16 at 18:00; Stop 08/23/16 at 11:06; Status DC Furosemide (Lasix) 20 mg DAILY@12 PO ; Start 08/24/16 at 12:00 Furosemide (Lasix) 20 mg DAILY PO ; Start 08/24/16 at 09:00 Labetalol HCl (Trandate) 200 mg Q12HR PO ; Start 08/23/16 at 21:00 Albuterol/ Ipratropium (Duoneb Neb) 1 ampule Q12HR NEB NEB ; Start 08/23/16 at 20:00 Other Results Microbiology Date/Time Procedure Status Source Growth 08/21/16 12:00 Gram Stain - Final Resulted Wound Foot 08/21/16 12:00 Wound Culture - Preliminary Resulted Staphylococcus Aureus Group D Enterococcus Objective Remarks Last Impressions Renal Ultrasound 08/17/16 0000 Signed Impressions: Service Date/Time: Wednesday, August 17, 2016 11:26 - CONCLUSION: 1. Normal ultrasound appearance of the right lower quadrant renal transplant with normal vascular assessment. 2. Chronic fluid collection at the lower pole of the transplant kidney measuring up to 3.5 cm. It has slightly decreased in size since the prior study. 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 Derrek Byrd MD Myocardial Perfusion Scan Nuc Med 08/17/16 0000 Signed Impressions: Service Date/Time: Wednesday, August 17, 2016 11:42 - CONCLUSION: Global hypokinesis and reduction in ejection fraction and no significant ischemia. RISK CATEGORY: Intermediate (1-3%% Annual Mortality Rate) Guillermo Frausto MD Foot MRI 08/17/16 0000 Signed Impressions: Service Date/Time: Wednesday, August 17, 2016 19:17 - CONCLUSION: Multilocular fluid intensity collection as described above which may reflect abscess. Skin thickening and subcutaneous edema is also present dorsally characteristic of cellulitis. No evidence of osteomyelitis Alejandro Morales MD Chest X-Ray 08/16/16 1114 Signed Impressions: Service Date/Time: August 11:58 - CONCLUSION: Changes most characteristic of congestive heart failure with pulmonary edema and small effusions now noted. Robin Reid MD Exam-Podiatry Constitutional General appearance: comfortable Nutritional status: normal Orientation: alert and oriented x3 Dermatological Exam Skin Temp - Right: Within Normal Limits Skin Texture - Right: Within Normal Limits Skin Elasticity - Right: Within Normal Limits Skin Tugor - Right: Within Normal Limits Hair Growth - Right: Within Normal Limits Pigmentation - Right: Within Normal Limits Skin Temp - Left: Within Normal Limits Skin Texture - Left: Within Normal Limits Skin Elasticity - Left: Within Normal Limits Skin Tugor - Left: Within Normal Limits Hair Growth - Left: Within Normal Limits Pigmentation - Left: Within Normal Limits Ulcers: Location/Measurements Open wound third interspace with granulation tissue. Good bleeding noted. No purulence or erythema seen. Vascular/Lymphatic Exam R Dorsails Pedis: Palpable L Dorsails Pedis: Palpable R Posterior Tibial: Palpable L Posterior Tibial: Palpable Neurologic Exam Present on right: Tingling, Paraesthesia Present on left: Tingling, Paraesthesia Muscle Strength Dorsiflexion (Right): Normal Plantarflexion (Right): Normal Inversion (Right): Normal Eversion (Right): Normal Digital (Right): Normal Dorsiflexion (Left): Normal Plantarflexion (Left): Normal Inversion (Left): Normal Eversion (Left): Normal Digital (Left): Normal Foot Range of Motion Dorsiflexion (Right): Normal Plantarflexion (Right): Normal Inversion (Right): Normal Eversion (Right): Normal Digital (Right): Normal Dorsiflexion (Left): Normal Plantarflexion (Left): Normal Inversion (Left): Normal Eversion (Left): Normal Digital (Left): Normal Assessment & Plan Diagnosis: (1) Abscess of left foot Status: Acute A/P PLAN: ID consult for outpatient antibiotics. Okay to discharge when stable from a podiatry standpoint. I can follow him in the wound center. Case management to arrange home health for dressing changes and wound center appointment. Dressing changed under aseptic conditions and packed with Maxorb extra VIVI. Chung Matos DPM Aug 23, 2016 16:26
[2016-08-23] MEDS: LABETALOL HCL 200 MG TAB PO SCH (20:13)
[2016-08-23] MEDS: LORazepam 1 MG TAB PO SCH (20:13)
[2016-08-24] VITALS (9 sets, daily range): BP systolic 161–179; BP diastolic 72–113; PULSE 58–67; RESP 16–18; TEMP 97.4–97.9; O2SAT 92–98
[2016-08-24] MEDS: oxyCODONE/ACETAMINOPHEN 10 MG/325 MG TAB PO PRN ×4 (02:44→21:39)
[2016-08-24] MEDS: cloNIDine HCL 0.2 MG TAB PO SCH ×3 (02:44→19:15)
[2016-08-24] MEDS: PIPERACIL-TAZO 2.25 GM PREMIX 50 ML IV SCH ×2 (05:23→15:11)
[2016-08-24] MEDS: MYCOPHENOLATE MOFETIL 500 MG TAB PO SCH ×2 (05:23→19:15)
[2016-08-24] MEDS: TACROLIMUS 1 MG CAP PO SCH ×2 (05:23→19:15)
[2016-08-24] MEDS: INSULIN ASPART SUPPLEMENTAL SCALE SQ SCH ×4 (06:41→21:41)
[2016-08-24 07:22] LABS: HEMATOCRIT 37.9 % (39.0-51.0); MEAN CELL VOLUME 87.7 FL (80.0-100.0); MEAN CORPUSCULAR HEMOGLOBIN 29.4 PG (27.0-34.0); MEAN CORPUSCULAR HGB CONC 33.5 % (32.0-36.0); PLATELET COUNT 174 TH/MM3 (150-450); RED BLOOD COUNT 4.33 MIL/MM3 (4.50-5.90); RED CELL DISTRIBUTION WIDTH 16.4 % (11.6-17.2); REVIEW FLAG FINAL; WHITE BLOOD COUNT 5.9 TH/MM3 (4.0-11.0)
[2016-08-24 07:49] LABS: BICARBONATE 21.1 MEQ/L (21.0-32.0); POTASSIUM 5.1 MEQ/L (3.5-5.1)
[2016-08-24] MEDS: RESP: ALBUTEROL 2.5 MG/IPRATROPIUM 0.5 MG NEB (SCH) NEB ×2 (08:48→20:00)
[2016-08-24] MEDS ORDERED: FUROSEMIDE 20 MG TAB PO SCH ×2 (09:00→12:00)
[2016-08-24] MEDS ORDERED: INSULIN HUMAN NPH 1,000 UNITS/10 ML VIAL SQ ONE (09:15)
[2016-08-24] MEDS: MULTIVITAMINS/MINERALS THERAPEUTIC TAB PO SCH (09:38)
[2016-08-24] MEDS: DOCUSATE SODIUM 100 MG CAP PO SCH ×2 (09:38→21:39)
[2016-08-24] MEDS: predniSONE 5 MG TAB PO SCH (09:39)
[2016-08-24] MEDS: ISOSORBIDE MONONITRATE 30 MG TAB PO SCH (09:39)
[2016-08-24] MEDS: NIFEdipine 30 MG SUSTAINED RELEASE TAB PO SCH ×2 (09:39→21:39)
[2016-08-24] MEDS: PREGABALIN 25 MG CAP PO SCH ×3 (09:41→19:15)
[2016-08-24] MEDS: FERROUS SULFATE 325 MG (65 MG ELEMENTAL IRON) TAB PO SCH (09:42)
[2016-08-24] MEDS: FUROSEMIDE 20 MG TAB PO SCH (09:42)
[2016-08-24] MEDS: SODIUM BICARBONATE 650 MG TAB PO SCH ×2 (09:42→19:16)
[2016-08-24] MEDS: LABETALOL HCL 200 MG TAB PO SCH ×2 (09:42→21:40)
[2016-08-24] MEDS: SODIUM CHLORIDE 0.9% FLUSH 10 ML FLUSH IV FLUSH SCH ×2 (09:43→21:00)
[2016-08-24] MEDS: HEPARIN SODIUM - SQ 10,000 UNITS/ML VIAL SQ SCH ×3 (09:43→23:57)
--- NOTE | 2016-08-24 13:20 | HHI.NPPN ---
Subjective History of Present Illness 66 year old with kidney transplant l foot infection Review of Systems General Constitutional: Fatigue Musculoskeletal MS: Pain/Stiffness Objective Data Data 08/23/16 08/24/16 19:00 07:00 Intake Total 840 ml 600 ml Output Total 1600 ml 2500 ml Balance -760 ml -1900 ml Intake Oral 840 ml 600 ml Output Urine Total 1600 ml 2500 ml # Voids 1 # Bowel Movements 0 0 Vital Signs Date Time Temp Pulse Resp B/P Pulse Ox O2 Delivery O2 Flow Rate FiO2 08/24/16 08:49 97 08/24/16 08:00 97.6 63 16 166/72 96 08/24/16 04:00 97.9 62 16 161/75 92 08/24/16 03:37 18 08/24/16 01:46 64 08/24/16 00:00 97.9 58 16 178/79 96 08/23/16 20:15 94 08/23/16 20:11 96 Nasal Cannula 21 08/23/16 20:00 97.5 72 18 150/64 97 08/23/16 16:06 97.7 62 18 166/72 97 -: 08/24/16 0700 08/24/16 0700 Physical Exam General Appearance: Well Developed, Well Nourished Pulmonary Resp Exam: Clear Bilaterally, Breath Sounds Equal Cardiology CV Exam: Regular, Normal Sinus Rhythm Gastrointestinal/Abdomen GI Exam: Soft, Non-Tender, Bowel Sounds Present Integumentary Skin Exam: Lesion(s) Extremeties Extremities Exam: Trace Edema Assessment/Plan Problem List: (1) Kidney transplant status, cadaveric Plan: Patient BP high adjust Nifedipine 60 ng bid cr 2.9 due to infection on Prograf and CellCept monitor BMP L foot dressed (2) Diastolic heart failure Plan: blood pressure as above (3) DM (diabetes mellitus) Plan: Monitor (4) Abscess of left foot Plan: [employer]inter following POST surgery (5) Hypertension Plan: blood pressure better Problem Qualifiers (1) DM (diabetes mellitus): (2) Hypertension: Qualified Code: I10 - Essential hypertension Stacy Dias MD Aug 24, 2016 13:20
--- NOTE | 2016-08-24 15:27 | PD.ID.CON ---
History of Present Illness Service ID Consult Requested By Reason for Consult Evaluation and Mment of Right foot Diabetic foot ulcer/abscess. Primary Care Physician Jaguar See Diagnoses: History of Present Illness is a 66 y/o CM with PMHx significant for chronic kidney disease status post kidney transplant on immune suppressants, congestive heart failure, COPD. Patient reports having seen a hand mexican food maker since late last year for ? bursitis of the plantar aspect of foot for which he has received multiple injections in his plantar aspect of foot. The last such injection was in Jun 2015. She reports walking bare feet at home and having pets at home. He now presents to [facility] for evaluation of shortness of breath and weight gain. The patient had a kidney transplant in [address] Dias from nephrology and Dr. Cabrera for cardiology. Patient complains of worsening dyspnea on exertion for the past 3-4 weeks. Patient came to the emergency department because of shortness of breath got worst and he was having some chest discomfort. The patient states he has been having a mild cough, denies fevers or chills, denies dysuria, denies diarrhea. Patient also states that for the past week she had developed a tender cyst on the left foot, which was drained on 08/10/16 at the [facility] outpatient clinic and pass was obtained from it. Patient was started on oral Bactrim to treat this infection. Patient was seen by Podiatry and intra op cultures pending at the time of my evaluation. ID consulted for Mment of Diabetic foot ulcer/abscess. Review of Systems Constitutional: DENIES: Diaphoretic episodes, Fatigue, Fever, Weight gain, Weight loss, Chills, Dizziness, Change in appetite, Night Sweats Endocrine: DENIES: Heat/cold intolerance, Polydipsia, Polyuria, Polyphagia Eyes: DENIES: Blurred vision, Diplopia, Eye inflammation, Eye pain, Vision loss , Photosensitivity, Double Vision Ears, nose, mouth, throat: DENIES: Tinnitus, Hearing loss, Vertigo, Nasal discharge, Oral lesions, Throat pain, Hoarseness, Ear Pain, Running Nose, Epistaxis, Sinus Pain, Toothache, Odynophagia Respiratory: DENIES: Apneas, Cough, Snoring, Wheezing, Hemoptysis, Sputum production, Shortness of breath Cardiovascular: COMPLAINS OF: Dyspnea on Exertion, Lower Extremity Edema, DENIES: Chest pain, Palpitations, Syncope, PND, Orthopnea, Claudication Gastrointestinal: DENIES: Abdominal pain, Black stools, Bloody stools, Constipation, Diarrhea, Nausea, Vomiting, Difficulty Swallowing, Anorexia Genitourinary: DENIES: Sexual dysfunction, Urinary frequency, Urinary incontinence, Urgency, Hematuria, Dysuria, Nocturia, Penile Discharge, Testicular Pain, Testicular Swelling Musculoskeletal: COMPLAINS OF: Joint pain, Joint Swelling, DENIES: Muscle aches, Stiffness, Back pain, Neck pain Integumentary: DENIES: Abnormal pigmentation, Nail changes, Pruritus, Rash Hematologic/lymphatic: DENIES: Bruising, Lymphadenopathy Immunologic/allergic: DENIES: Eczema, Urticaria Neurologic: DENIES: Abnormal gait, Headache, Localized weakness, Paresthesias, Seizures, Speech Problems, Tremor, Poor Balance Psychiatric: DENIES: Anxiety, Confusion, Mood changes, Depression, Hallucinations, Agitation, Suicidal Ideation, Homicidal Ideation, Delusions Except as stated in HPI: all other systems reviewed are Neg Past Family Social History Allergies: Coded Allergies: No Known Allergies (Unverified , 08/16/16) Past Medical History COPD Congestive heart failure End-stage renal disease status post transplantation Anxiety Hepatitis C Diabetes Dyslipidemia Neuropathy Arthritis Past Surgical History Renal transplant on the right Ureteral stents Left AV fistula Bilateral carotid surgery Reported Medications Reported Meds & Active Scripts Active Bactrim DS (Sulfamethoxazole-Trimethoprim) 800-160 Mg Tab 1 Tab PO BID Reported Feosol (Iron Carbonyl) 45 Mg Tab 45 Mg PO DAILY Isosorbide Mononitrate ER (Isosorbide Mononitrate) 30 Mg Cherise 30 Mg PO DAILY [Trimix Inj] 1 Injection IC INTERMITTENT PRN Novolog Inj (Insulin Aspart) 1,000 Unit/10 Ml Vial 0 SQ ACHS AND 3AM Sliding Scale as directed. Lantus Inj (Insulin Glargine) 1,000 Unit/10 Ml Vial 22 Units SQ HS Hydrocodone-Acetaminophen 10-325 mg Tab 1 Tab PO TID PRN Ativan (Lorazepam) 1 Mg Tab 3 Mg PO HS Lyrica (Pregabalin) 25 Mg Cap 25 Mg PO TID Miralax Powder (Polyethylene Glycol 3350 Powder) 17 Gm Powd 17 Gm PO DAILY PRN Mix and dissolve one measuring cap-ful (17 grams) in water or juice. Linzess (Linaclotide) 290 Mcg Cap 290 Mcg PO DAILY PRN Colace (Docusate Sodium) 100 Mg Cap 100 Mg PO BID Lasix (Furosemide) 20 Mg Tab 20 Mg PO BID Procardia XL (Nifedipine) 30 Mg Tab 30 Mg PO HS Clonidine (Clonidine HCl) 0.1 Mg Tab 0.1 Mg PO DAILY Labetalol (Labetalol HCl) 200 Mg Tab 200 Mg PO BID Multivitamin Adults (Multiple Vitamins W/ Minerals) 1 Tab 1 Tab PO DAILY Prednisone 5 Mg Tab 5 Mg PO DAILY Cellcept (Mycophenolate Mofetil) 500 Mg Tab 500 Mg PO BID Tacrolimus 1 Mg Cap 3 Mg PO Q12H Sodium Bicarbonate 650 Mg Tab 650 Mg PO BIDPC Active Ordered Medications Current Medications Medications (Trade) Dose Ordered Sig/Rai Route Start Time Stop Time Status Last Admin (NS Flush) 2 ml UNSCH PRN IV FLUSH 08/16/16 15:15 (NS Flush) 2 ml BID IV FLUSH 08/16/16 21:00 08/24/16 09:43 (Heparin Inj) 5,000 units Q8H SQ 08/16/16 16:00 08/24/16 15:13 (Colace) 100 mg BID PO 08/16/16 21:00 08/24/16 09:38 (Levemir Inj) 22 units HS SQ 08/16/16 21:00 08/16/16 20:59 (Imdur) 30 mg DAILY PO 08/17/16 09:00 08/24/16 09:39 (Ativan) 3 mg HS PO 08/16/16 21:00 08/23/16 20:13 (Theragran M Tab) 1 tab DAILY PO 08/17/16 09:00 08/24/16 09:38 (Cellcept) 500 mg BID@06,18 PO 08/16/16 18:00 08/24/16 05:23 (Miralax) 17 gm DAILY PRN PO 08/16/16 17:45 (Deltasone) 5 mg DAILY PO 08/17/16 09:00 08/24/16 09:39 (Lyrica) 25 mg TID PO 08/16/16 18:00 08/24/16 12:47 (Sodium Bicarbonate) 650 mg BIDPC PO 08/16/16 18:00 08/24/16 09:42 (Ferrous Sulfate) 325 mg DAILY PO 08/17/16 09:00 08/24/16 09:42 Patient Own Medication PT OWN MED: Linaclot... DAILY PRN PO 08/16/16 17:45 (D50w (Vial) Inj) 25 ml UNSCH PRN IV PUSH 08/17/16 05:00 (Glucagon Inj) 1 mg UNSCH PRN OTHER 08/17/16 05:00 (Prograf) 3 mg DAILY@06,18 PO 08/18/16 18:00 08/24/16 05:23 (Percocet 5-325 Mg) 1 tab Q6H PRN PO 08/19/16 09:45 (Percocet 10-325 Mg) 1 tab Q6H PRN PO 08/19/16 09:45 08/24/16 15:15 (Morphine Inj) 4 mg Q3H PRN IV 08/19/16 09:45 (Narcan Inj) 0.4 mg UNSCH PRN IV 08/19/16 09:45 Clonidine 0.2 mg 0.2 mg Q8H PO 08/20/16 10:00 08/24/16 09:39 (Zosyn 2.25 Gm Premix) 50 ml @ 100 mls/hr Q8H IV 08/20/16 14:00 08/24/16 15:11 (Trandate) 200 mg Q12HR PO 08/23/16 21:00 08/24/16 09:42 (Lasix) 20 mg DAILY PO 08/24/16 09:00 08/24/16 09:42 (Procardia Xl) 60 mg BID PO 08/24/16 21:00 Family History reviewed and NC Social History Lives at home with . Smoking in past. Has several pets at home. He walks bare feet at home. Physical Exam Vital Signs Vital Signs Date Time Temp Pulse Resp B/P Pulse Ox O2 Delivery O2 Flow Rate FiO2 08/24/16 12:00 97.6 62 16 161/113 97 08/24/16 08:49 97 08/24/16 08:00 97.6 63 16 166/72 96 08/24/16 04:00 97.9 62 16 161/75 92 08/24/16 03:37 18 08/24/16 01:46 64 08/24/16 00:00 97.9 58 16 178/79 96 08/23/16 20:15 94 08/23/16 20:11 96 Nasal Cannula 21 08/23/16 20:00 97.5 72 18 150/64 97 08/23/16 16:06 97.7 62 18 166/72 97 Physical Exam GENERAL: This is a well-nourished, well-developed patient, in no apparent distress. SKIN: No rashes, ecchymoses or lesions. Cool and dry. Av fistula left arm with no e.o infection. HEAD: Atraumatic. Normocephalic. No temporal or scalp tenderness. EYES: Pupils equal round and reactive. Extraocular motions intact. No scleral icterus. No injection or drainage. ENT: Nose without bleeding, purulent drainage or septal hematoma. Throat without erythema, tonsillar hypertrophy or exudate. Uvula midline. Airway patent. NECK: Trachea midline. Supple, nontender, no meningeal signs. CARDIOVASCULAR: RRR RESPIRATORY: Clear to auscultation. Breath sounds equal bilaterally. No wheezes , rales, or rhonchi. GASTROINTESTINAL: Abdomen soft, non-tender, nondistended. MUSCULOSKELETAL: Extremities without clubbing, cyanosis, or edema. Foot in dressing. Overall feet poor hygiene and cracks in skin noted at multiple places. NEUROLOGICAL: Awake and alert. Grossly non focal Psych: cooperative IV line sites with no e.o infection. Laboratory Laboratory Tests Test 08/24/16 07:00 White Blood Count 5.9 Red Blood Count 4.33 Hemoglobin 12.7 Hematocrit 37.9 Mean Corpuscular Volume 87.7 Mean Corpuscular Hemoglobin 29.4 Mean Corpuscular Hemoglobin 33.5 Concent Red Cell Distribution Width 16.4 Platelet Count 174 Mean Platelet Volume 8.6 Sodium Level 135 Potassium Level 5.1 Chloride Level 105 Carbon Dioxide Level 21.1 Anion Gap 9 Blood Urea Nitrogen 61 Creatinine 2.90 Estimat Glomerular Filtration 22 Rate Random Glucose 216 Calcium Level 9.6 Date/Time Procedure Status Source Growth 08/21/16 12:00 Gram Stain - Final Complete Wound Foot 08/21/16 12:00 Wound Culture - Final Complete Staphylococcus Aureus Enterococcus Faecalis Result Diagram: 08/24/16 0700 08/24/16 0700 Imaging Last Impressions Renal Ultrasound 08/17/16 0000 Signed Impressions: Service Date/Time: Wednesday, August 17, 2016 11:26 - CONCLUSION: 1. Normal ultrasound appearance of the right lower quadrant renal transplant with normal vascular assessment. 2. Chronic fluid collection at the lower pole of the transplant kidney measuring up to 3.5 cm. It has slightly decreased in size since the prior study. 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 Derrek Byrd MD Myocardial Perfusion Scan Nuc Med 08/17/16 0000 Signed Impressions: Service Date/Time: Wednesday, August 17, 2016 11:42 - CONCLUSION: Global hypokinesis and reduction in ejection fraction and no significant ischemia. RISK CATEGORY: Intermediate (1-3%% Annual Mortality Rate) Guillermo Frausto MD Foot MRI 08/17/16 0000 Signed Impressions: Service Date/Time: Wednesday, August 17, 2016 19:17 - CONCLUSION: Multilocular fluid intensity collection as described above which may reflect abscess. Skin thickening and subcutaneous edema is also present dorsally characteristic of cellulitis. No evidence of osteomyelitis Alejandro Morales MD Chest X-Ray 08/16/16 1114 Signed Impressions: Service Date/Time: August 11:58 - CONCLUSION: Changes most characteristic of congestive heart failure with pulmonary edema and small effusions now noted. Robin Reid MD Assessment and Plan Assessment and Plan Diabetic foot infection/abscess Enterococcus ID pending. Staph aureus ID pending. Renal transplant on immune suppressants. Recs Continue zosyn IV for now. Follow cultures Follow clinically d/w : to tendon, or bone involvement. Superficial abscess drained ( source control achieved) Please call with susceptibility results to determine oral antibiotic regimen on Saturday. to cover for in 08/25/16 to 08/27/16. Thalia Carey MD Aug 24, 2016 15:27
--- NOTE | 2016-08-24 17:04 | HHI.PR ---
Subjective Remarks BP remain elevated, but improved. Awaiting final recommendations for home antibiotics. He has been transitioned to Bactrim and Ampicillin based on susceptibilities of cultures which grow staph and enterococcus. Objective Vital Signs Date Time Temp Pulse Resp B/P Pulse Ox O2 Delivery O2 Flow Rate FiO2 08/24/16 16:00 97.7 60 16 169/77 97 08/24/16 12:00 97.6 62 16 161/113 97 08/24/16 08:49 97 08/24/16 08:00 97.6 63 16 166/72 96 08/24/16 04:00 97.9 62 16 161/75 92 08/24/16 03:37 18 08/24/16 01:46 64 08/24/16 00:00 97.9 58 16 178/79 96 08/23/16 20:15 94 08/23/16 20:11 96 Nasal Cannula 21 08/23/16 20:00 97.5 72 18 150/64 97 I/O 08/23/16 08/23/16 08/23/16 08/24/16 08/24/16 08/24/16 07:00 15:00 23:00 07:00 15:00 23:00 Intake Total 240 ml 840 ml 360 ml 240 ml 840 ml Output Total 2000 ml 1600 ml 1000 ml 1500 ml 800 ml Balance -1760 ml -760 ml -640 ml -1260 ml 40 ml Intake Oral 240 ml 840 ml 360 ml 240 ml 840 ml Output Urine Total 2000 ml 1600 ml 1000 ml 1500 ml 800 ml # Voids 1 # Bowel Movements 0 0 0 0 Result Diagram: 08/24/16 0708/24/16 07 Objective Remarks GENERAL: A&Ox3, NAD SKIN: Warm and dry. HEAD: Normocephalic. EYES: No scleral icterus. No injection or drainage. NECK: Supple, trachea midline. No JVD or lymphadenopathy. CARDIOVASCULAR: Regular rate and rhythm without murmurs, gallops, or rubs. RESPIRATORY: Breath sounds equal bilaterally. No accessory muscle use. No wheezing. Crackles at bases. GASTROINTESTINAL: Abdomen soft, non-tender, nondistended. MUSCULOSKELETAL: No cyanosis, or edema. BACK: Nontender without obvious deformity. No CVA tenderness. Medications and IVs Administered Medications Medications (Trade) Dose Ordered Sig/Rai Route PRN Reason Start Time Stop Time Status Last Admin Dose Admin Sodium Chloride (NS Flush) 2 ml BID IV FLUSH 08/16/16 21:00 08/24/16 09:43 Heparin Sodium (Porcine) (Heparin Inj) 5,000 units Q8H SQ 08/16/16 16:00 08/24/16 15:13 Docusate Sodium (Colace) 100 mg BID PO 08/16/16 21:00 08/24/16 09:38 Insulin Detemir (Levemir Inj) 22 units HS SQ 08/16/16 21:00 08/16/16 20:59 Isosorbide Mononitrate (Imdur) 30 mg DAILY PO 08/17/16 09:00 08/24/16 09:39 Lorazepam (Ativan) 3 mg HS PO 08/16/16 21:00 08/23/16 20:13 Multivitamins/ Minerals Therapeutic (Theragran M Tab) 1 tab DAILY PO 08/17/16 09:00 08/24/16 09:38 Mycophenolate Mofetil (Cellcept) 500 mg BID@ PO 08/16/16 18:00 08/24/16 05:23 Prednisone (Deltasone) 5 mg DAILY PO 08/17/16 09:00 08/24/16 09:39 Pregabalin (Lyrica) 25 mg TID PO 08/16/16 18:00 08/24/16 12:47 Sodium Bicarbonate (Sodium Bicarbonate) 650 mg BIDPC PO 08/16/16 18:00 08/24/16 09:42 Ferrous Sulfate (Ferrous Sulfate) 325 mg DAILY PO 08/17/16 09:00 08/24/16 09:42 Tacrolimus (Prograf) 3 mg DAILY@,18 PO 08/18/16 18:00 08/24/16 05:23 Oxycodone/ Acetaminophen (Percocet 10-325 Mg) 1 tab Q6H PRN PO PAIN SCALE 6 TO 10 08/19/16 09:45 08/24/16 15:15 Clonidine (Catapres) 0.2 mg Q8H PO 08/20/16 10:00 08/24/16 09:39 Labetalol HCl (Trandate) 200 mg Q12HR PO 08/23/16 21:00 08/24/16 09:42 Furosemide (Lasix) 20 mg DAILY PO 08/24/16 09:00 08/24/16 09:42 A/P Problem List: (1) Shortness of breath ICD Code: R06.02 Assessment & Plan: Improved Related to COPD Plan to discharge on BID Duoneb and PRN Albuterol (2) Hypoxia ICD Code: R09.02 Assessment & Plan: Resolved Continue PRN Albuterol Continue Q8hr Duonebs schedualed Follow oxygen saturations Now on room air (3) Foot ulcer ICD Code: L97.509 Assessment & Plan: Podiatry to follow as an outpatient No would closure due to postive cultures Bactrim and Ampicillin for now ID following (4) DM (diabetes mellitus) ICD Code: E11.9 Assessment & Plan: Follow blood sugars Diabetic Diet SS Insulin (5) Acute on chronic diastolic (congestive) heart failure ICD Code: I50.33 Assessment & Plan: Labetalol Lasix Stabalzied Follow with cardiology as an outpatient (6) Hypertension ICD Code: I10 Assessment & Plan: Patient reports control as an outpatient, but has not acheived that here. Labetalol continued Nifedipine continued PRN Clonidine continued (7) Hyperkalemia ICD Code: E87.5 Assessment & Plan: Normalized today Follow potassium Problem Qualifiers (1) DM (diabetes mellitus): (2) Hypertension: Qualified Code: I10 - Essential hypertension Dante Morton MD Aug 24, 2016 17:04
[2016-08-24] MEDS: LORazepam 1 MG TAB PO SCH (21:39)
[2016-08-24] MEDS: INSULIN DETEMIR 100 UNITS/ML VIAL SQ SCH (21:40)
[2016-08-24] MEDS: AMOXICILLIN (TRIHYDRATE) 250 MG CAP PO SCH (21:41)
[2016-08-25] VITALS: BP_SYST 156; BP_SYST 165; BP_DIAS 64; BP_DIAS 77; PULSE 64; RESP 18; TEMP 97.9; O2SAT 95
[2016-08-25] MEDS: cloNIDine HCL 0.2 MG TAB PO SCH ×2 (03:08→11:15)
[2016-08-25 04:00] VITALS: BP 165/70; PULSE 68; RESP 16; TEMP 97.8; O2SAT 95
[2016-08-25] MEDS: TACROLIMUS 1 MG CAP PO SCH (05:03)
[2016-08-25] MEDS: MYCOPHENOLATE MOFETIL 500 MG TAB PO SCH (05:03)
[2016-08-25] MEDS: AMOXICILLIN (TRIHYDRATE) 250 MG CAP PO SCH (05:05)
[2016-08-25] MEDS: oxyCODONE/ACETAMINOPHEN 10 MG/325 MG TAB PO PRN ×2 (05:06→11:16)
[2016-08-25 06:05] VITALS: PULSE 64
[2016-08-25] MEDS: INSULIN ASPART SUPPLEMENTAL SCALE SQ SCH ×2 (06:28→11:17)
[2016-08-25 07:22] LABS: HEMATOCRIT 35.1 % (39.0-51.0); MEAN CELL VOLUME 87.8 FL (80.0-100.0); MEAN CORPUSCULAR HEMOGLOBIN 29.6 PG (27.0-34.0); MEAN CORPUSCULAR HGB CONC 33.8 % (32.0-36.0); PLATELET COUNT 169 TH/MM3 (150-450); RED BLOOD COUNT 3.99 MIL/MM3 (4.50-5.90); RED CELL DISTRIBUTION WIDTH 16.6 % (11.6-17.2); REVIEW FLAG FINAL; WHITE BLOOD COUNT 5.4 TH/MM3 (4.0-11.0)
[2016-08-25 07:50] LABS: BICARBONATE 22.6 MEQ/L (21.0-32.0); POTASSIUM 4.7 MEQ/L (3.5-5.1)
[2016-08-25 08:00] VITALS: BP 172/74; PULSE 60; RESP 19; TEMP 97.3; O2SAT 95
[2016-08-25] MEDS: RESP: ALBUTEROL 2.5 MG/IPRATROPIUM 0.5 MG NEB (SCH) NEB (08:00)
[2016-08-25] MEDS: HEPARIN SODIUM - SQ 10,000 UNITS/ML VIAL SQ SCH (08:42)
[2016-08-25] MEDS: SODIUM BICARBONATE 650 MG TAB PO SCH (08:43)
[2016-08-25] MEDS: LABETALOL HCL 200 MG TAB PO SCH (08:43)
[2016-08-25] MEDS: MULTIVITAMINS/MINERALS THERAPEUTIC TAB PO SCH (08:44)
[2016-08-25] MEDS: PREGABALIN 25 MG CAP PO SCH (08:44)
[2016-08-25] MEDS: DOCUSATE SODIUM 100 MG CAP PO SCH (08:44)
[2016-08-25] MEDS: FERROUS SULFATE 325 MG (65 MG ELEMENTAL IRON) TAB PO SCH (08:45)
[2016-08-25] MEDS: ISOSORBIDE MONONITRATE 30 MG TAB PO SCH (08:46)
[2016-08-25] MEDS: predniSONE 5 MG TAB PO SCH (08:46)
[2016-08-25] MEDS: FUROSEMIDE 20 MG TAB PO SCH (08:46)
[2016-08-25] MEDS ORDERED: AUGM875T PO (08:48)
[2016-08-25] MEDS: NIFEdipine 30 MG SUSTAINED RELEASE TAB PO SCH (08:51)
[2016-08-25] MEDS ORDERED: FURO20TA PO (08:51)
[2016-08-25] MEDS ORDERED: NIFE30TA8 PO (08:51)
[2016-08-25] MEDS ORDERED: VENTAER INH (08:51)
[2016-08-25] MEDS ORDERED: SPIRCAP INH (08:52)
[2016-08-25] MEDS: SODIUM CHLORIDE 0.9% FLUSH 10 ML FLUSH IV FLUSH SCH (09:00)
--- NOTE | 2016-08-25 10:21 | HHI.FF ---
Face to Face Verification Diagnosis: (1) Abscess of left foot Home Health Nursing Order: Medical education Wound care and dressing changes Instructions: Dressing changes daily I have seen patient Kobi Abbott, III on 08/25/16. My clinical findings support the need for the requested home health care services because: Ltd mobility - disease progression Infection w/ risk of complications I certify that my clinical findings support that this patient is homebound because: Hx COPD- exertion dyspnea/weakness Unsteady gait/balance Dante Morton MD Aug 25, 2016 10:21
--- NOTE | 2016-08-25 10:27 | HHI.DS ---
Discharge Summary Admission Date Aug 20, 2016 at 18:05 Discharge Date: Aug 25, 2016 Admitting Diagnosis acute CHF exacerbation (1) Acute on chronic diastolic (congestive) heart failure ICD Code: I50.33 (2) Hypertension ICD Code: I10 Diagnosis: Secondary (3) Hyperkalemia ICD Code: E87.5 Diagnosis: Secondary (4) DM (diabetes mellitus) ICD Code: E11.9 Diagnosis: Secondary (5) Kidney transplanted ICD Code: Z94.0 Diagnosis: Secondary (6) ESRD (end stage renal disease) ICD Code: N18.6 (7) Abscess of left foot ICD Code: L02.612 Diagnosis: Principal (8) Anasarca ICD Code: R60.1 Diagnosis: Secondary (9) FRANTZ (acute kidney injury) ICD Code: N17.9 Diagnosis: Principal Procedures Status post incision and drainage of abscess in the left foot. Brief History - From Admission This is a 66-year-old male with past medical history significant for chronic kidney disease status post kidney transplant, congestive heart failure, COPD and as stated below who presents to [facility] for evaluation of shortness of breath and weight gain. The patient had a kidney transplant in [address] Hernandez from nephrology and Dr. Cabrera for cardiology. Patient complains of worsening dyspnea on exertion for the past 3- 4 weeks. Patient also complains of orthopnea and he feels that he is gaining weight. The patient states he checks his weight daily and which shows at least an increase of 5 kg in the past 3-4 days. Patient states he has been compliant with his medications and has being using extra doses of IV Lasix to help with his symptoms but they do not seem to be helping. Patient came to the emergency department because of shortness of breath got worst and he was having some chest discomfort as well as to same he's had for the past 3 days. The patient actually is solid Dr. Jax antonio yesterday and he wanted the patient to have a stress test next week. Patient complain of chest pain in the emergency department however he did not complain of chest pain to me. The patient states he has been having a mild cough, denies fevers or chills, denies dysuria, denies diarrhea. Patient also states that he has had some leg edema and increase in abdominal girth. Patient also states that for the past week she had developed a tender cyst on the left foot, which was drained on 08/10/16 at the [facility] outpatient clinic and pass was obtained from it. Patient was started on oral Bactrim to treat this infection. CBC/BMP: 08/25/16 0604 08/25/16 0604 Significant Findings Laboratory Tests Test 08/24/16 08/25/16 07:00 06:04 Red Blood Count 4.33 MIL/MM3 3.99 MIL/MM3 (4.50-5.90) (4.50-5.90) Hemoglobin 12.7 GM/DL 11.8 GM/DL (13.0-17.0) (13.0-17.0) Hematocrit 37.9 % 35.1 % (39.0-51.0) (39.0-51.0) Sodium Level 135 MEQ/L (136-145) Blood Urea Nitrogen 61 MG/DL (7-18) 60 MG/DL (7-18) Creatinine 2.90 MG/DL 2.94 MG/DL (0.60-1.30) (0.60-1.30) Estimat Glomerular Filtration 22 ML/MIN (>89) 22 ML/MIN (>89) Rate Random Glucose 216 MG/DL 172 MG/DL (74-106) (74-106) Imaging Last Impressions Renal Ultrasound 08/17/16 0000 Signed Impressions: Service Date/Time: Wednesday, August 17, 2016 11:26 - CONCLUSION: 1. Normal ultrasound appearance of the right lower quadrant renal transplant with normal vascular assessment. 2. Chronic fluid collection at the lower pole of the transplant kidney measuring up to 3.5 cm. It has slightly decreased in size since the prior study. 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 Derrek Byrd MD Myocardial Perfusion Scan Nuc Med 08/17/16 0000 Signed Impressions: Service Date/Time: Wednesday, August 17, 2016 11:42 - CONCLUSION: Global hypokinesis and reduction in ejection fraction and no significant ischemia. RISK CATEGORY: Intermediate (1-3%% Annual Mortality Rate) Guillermo Frausto MD Foot MRI 08/17/16 0000 Signed Impressions: Service Date/Time: Wednesday, August 17, 2016 19:17 - CONCLUSION: Multilocular fluid intensity collection as described above which may reflect abscess. Skin thickening and subcutaneous edema is also present dorsally characteristic of cellulitis. No evidence of osteomyelitis Alejandro Morales MD Chest X-Ray 08/16/16 1114 Signed Impressions: Service Date/Time: August 11:58 - CONCLUSION: Changes most characteristic of congestive heart failure with pulmonary edema and small effusions now noted. Robin Reid MD PE at Discharge GENERAL: NAD, A&Ox3 SKIN: Warm and dry. HEAD: Normocephalic. EYES: No scleral icterus. No injection or drainage. NECK: Supple, trachea midline. No JVD or lymphadenopathy. CARDIOVASCULAR: Regular rate and rhythm without murmurs, gallops, or rubs. RESPIRATORY: Breath sounds equal bilaterally. No accessory muscle use. GASTROINTESTINAL: Abdomen soft, non-tender, nondistended. MUSCULOSKELETAL: No cyanosis, or edema. Right foot is bandaged and without evidence of erythema or drainage. BACK: Nontender without obvious deformity. No CVA tenderness. Pt update on day of discharge Medically stable for discharge to home. Hospital Course Mr. Abbott is a 66 year old male. He has a history of CHF and COPD, usually under control. He has been dealing with a right foot abscess. Problems while here were a CHF Exacerbation and COPD Exacerbation with Hypoxia. Diuresis and addition of inhaled breathing treatments are beneficial. Wound is healing and cultures have shown Staph and Enterococcus, the wound remains open and is not ready for closure (planned as an outpatient after infection resolved). He is weaned off oxygen and his renal function is stabilized. CHF and COPD Exacerbations may have been indirectly worsened from his infectious state, but both are returned to baseline now. He is medically stable for discharge to home today. Pt Condition on Discharge: Stable Discharge Disposition: Discharge Home Discharge Time: <= 30 minutes Discharge Instructions DIET: Follow Instructions for: As Tolerated, No Restrictions Activities you can perform: Regular-No Restrictions Dante Morton MD Aug 25, 2016 10:27
--- NOTE | 2016-08-25 10:42 | PD.POD ---
Subjective Podiatric Problems 66-year-old diabetic presents with abscess in the third interspace of the left foot. MRI showed abscess formation. Patient had pus expressed from the area during surgery. Patient complaining of minimal pain or discomfort. Intraoperative culture was growing staph aureus. Culture obtained 4 days ago was growing staph and enterococcus. Pain scale used: 0-10 numeric scale Pain score: 2 Remarks History of renal transplant. History of CHF. Patient was seen in the wound center on the and had pus expressed from the area. He was hospitalized for shortness of breath since that time. He was taken to the OR on Saturday and had an I&D performed of the third interspace of the left foot. Staph was growing from the wound. Repeat culture from 4 days ago has staph and enterococcus. Patient seen by infectious disease. Past Med/Surg/Social History Past Medical History HEENT: REPORTS HX OF: Other HEENT history (Sam's syndrom) Endocrine: REPORTS HX OF: Diabetes mellitus Respiratory: REPORTS HX OF: COPD Genitourinary: REPORTS HX OF: Kidney failure, Other history (kidney transplant) Infectious disease: REPORTS HX OF: Chickenpox, Other inf disease history ( shingles) Psychiatric: REPORTS HX OF: Anxiety Disabilities: REPORTS HX OF: Hearing deficit Past Surgical History Cardiovascular: REPORTS HX OF: Other cardiac surgery Genitourinary: REPORTS HX OF: Other surgery (kidney transplant, stents ) Musculoskeletal: REPORTS HX OF: Other musculoskeletal srg (rt knee) Social History Smoking Status: Former Smoker Review of Systems Notes No changes to his 14 point review of systems exam from the previous visit Objective Vital Signs Vital Signs Date Time Temp Pulse Resp B/P Pulse Ox O2 Delivery O2 Flow Rate FiO2 08/25/16 08:00 97.3 60 19 172/74 95 172/ 08/25/16 06:05 64 08/25/16 04:00 97.8 68 16 165/70 95 08/25/16 00:00 156/64 08/25/16 00:00 97.9 64 18 165/77 95 08/24/16 21:25 94 08/24/16 20:00 97.4 67 18 179/81 98 08/24/16 16:00 97.7 60 16 169/77 97 08/24/16 12:00 97.6 62 16 161/113 97 Coded Allergies: No Known Allergies (Unverified , 08/16/16) Medications and IVs Current Medications Furosemide (Lasix Inj) 40 mg ONCE ONCE IV PUSH Last administered on 08/16/16 11:30; Start 08/16/16 at 11:30; Stop 08/16/16 at 11:31; Status DC Albuterol Sulfate (Albuterol Neb) 2.5 mg ONCE ONCE INH Last administered on 11:39; Start 08/16/16 at 11:45; Stop 08/16/16 at 11:46; Status DC Sodium Chloride (NS Flush) 2 ml UNSCH PRN IV FLUSH FLUSH AFTER USING IV ACCESS ; Start 08/16/16 at 15:15 Sodium Chloride (NS Flush) 2 ml BID IV FLUSH Last administered on 08/25/16 09: 00; Start 08/16/16 at 21:00 Heparin Sodium (Porcine) (Heparin Inj) 5,000 units Q8H SQ Last administered on 08/25/16 08:42; Start 08/16/16 at 16:00 Clonidine (Catapres) 0.1 mg DAILY PO Last administered on 08/18/16 09:26; Start 08/16/16 at 17:45; Stop 08/18/16 at 15:10; Status DC Docusate Sodium (Colace) 100 mg BID PO Last administered on 08/25/16 08:44; Start 08/16/16 at 21:00 Acetaminophen/ Hydrocodone Bitart ([place] 10-325 Mg) 1 tab TID PRN PO PAIN Last administered on 08/18/16 18:31; Start 08/16/16 at 17:45; Stop 08/19/16 at 09:36 ; Status DC Insulin Detemir (Levemir Inj) 22 units HS SQ Last administered on 08/24/16 21: 40; Start 08/16/16 at 21:00 Isosorbide Mononitrate (Imdur) 30 mg DAILY PO Last administered on 08/25/16 08 :46; Start 08/17/16 at 09:00 Labetalol HCl (Trandate) 200 mg BID PO Last administered on 08/18/16 09:27; Start 08/16/16 at 21:00; Stop 08/18/16 at 15:12; Status DC Lorazepam (Ativan) 3 mg HS PO Last administered on 08/24/16 21:39; Start 08/16 at 21:00 Multivitamins/ Minerals Therapeutic (Theragran M Tab) 1 tab DAILY PO Last administered on 08/25/16 08:44; Start 08/17/16 at 09:00 Mycophenolate Mofetil (Cellcept) 500 mg BID@ PO Last administered on 05:03; Start 08/16/16 at 18:00 Nifedipine (Procardia Xl) 30 mg HS PO Last administered on 08/16/16 20:58; Start 08/16/16 at 21:00; Stop 08/17/16 at 11:44; Status DC Polyethylene Glycol (Miralax) 17 gm DAILY PRN PO CONSTIPATION; Start 08/16/16 at 17:45 Prednisone (Deltasone) 5 mg DAILY PO Last administered on 08/25/16 08:46; Start 08/17/16 at 09:00 Pregabalin (Lyrica) 25 mg TID PO Last administered on 08/25/16 08:44; Start at 18:00 Sodium Bicarbonate (Sodium Bicarbonate) 650 mg BIDPC PO Last administered on 08:43; Start 08/16/16 at 18:00 Tacrolimus (Prograf) 3 mg Q12H PO ; Start 08/16/16 at 18:00; Stop 08/16/16 at 18 :10; Status DC Ferrous Sulfate (Ferrous Sulfate) 325 mg DAILY PO Last administered on 08:45; Start 08/17/16 at 09:00 Patient Own Medication PT OWN MED: Linaclot... DAILY PRN PO CONSTIPATION; Start 08/16/16 at 17:45 Tacrolimus (Prograf) 3 mg DAILY@ PO Last administered on 08/18/16 06:37; Start 08/16/16 at 18:15; Stop 08/18/16 at 16:06; Status DC Furosemide (Lasix Inj) 40 mg DAILY IV PUSH Last administered on 08/17/16 08:45 ; Start 08/17/16 at 09:00; Stop 08/17/16 at 15:32; Status DC Trimethoprim/ Sulfamethoxazole (Bactrim Ds 800-160 Mg) 1 tab BID PO Last administered on 08/20/16 08:40; Start 08/16/16 at 21:00; Stop 08/20/16 at 13:00 ; Status DC Dextrose (D50w (Vial) Inj) 25 ml UNSCH PRN IV PUSH HYPOGLYCEMIA-SEE COMMENTS; Start 08/17/16 at 05:00 Glucagon (Glucagon Inj) 1 mg UNSCH PRN OTHER HYPOGLYCEMIA-SEE COMMENTS; Start 08/17/16 at 05:00 Insulin Aspart (NovoLOG SUPPLEMENTAL SCALE) 1 ACHS SLIDING SCALE SQ Last administered on 08/25/16 06:28; Start 08/17/16 at 07:00 Nifedipine (Procardia Xl) 30 mg BID PO Last administered on 08/24/16 09:39; Start 08/17/16 at 21:00; Stop 08/24/16 at 13:18; Status DC Nifedipine (Procardia Xl) 30 mg ONCE ONCE PO Last administered on 08/17/16 15 :07; Start 08/17/16 at 12:00; Stop 08/17/16 at 12:01; Status DC Furosemide (Lasix Inj) 20 mg DAILY IV PUSH Last administered on 08/18/16 09:29 ; Start 08/18/16 at 09:00; Stop 08/18/16 at 15:12; Status DC Regadenoson (Lexiscan Inj) 0.4 mg STK-MED ONCE .ROUTE Last administered on 08/18 09:22; Start 08/18/16 at 09:22; Stop 08/18/16 at 09:23; Status DC Aminophylline (Aminophylline Inj) 250 mg STK-MED ONCE .ROUTE Last administered on 08/18/16 10:45; Start 08/18/16 at 10:45; Stop 08/18/16 at 10:46; Status DC Clonidine (Catapres) 0.1 mg Q8H PO Last administered on 08/20/16 08:40; Start 08/18/16 at 17:00; Stop 08/20/16 at 08:50; Status DC Tacrolimus (Prograf) 3 mg DAILY@ PO Last administered on 08/25/16 05:03; Start 08/18/16 at 18:00 Bupivacaine HCl (Marcaine Pf 0.5% Inj) 30 ml STK-MED ONCE .ROUTE Last administered on 08/19/16 09:14; Start 08/19/16 at 07:46; Stop 08/19/16 at 07:47 ; Status DC Sodium Chloride (NS Flush) 2 ml UNSCH PRN IV FLUSH FLUSH AFTER USING IV ACCESS ; Start 08/19/16 at 09:45; Stop 08/19/16 at 09:45; Status DC Sodium Chloride (NS Flush) 2 ml BID IV FLUSH ; Start 08/19/16 at 21:00; Stop at 21:00; Status DC Miscellaneous Information (Post-op Orders (for Pharmacy)) STAT ONCE XX ; Start 08/19/16 at 09:45; Stop 08/19/16 at 09:46; Status DC Oxycodone/ Acetaminophen (Percocet 5-325 Mg) 1 tab Q6H PRN PO PAIN SCALE 3 TO 5; Start 08/19/16 at 09:45 Oxycodone/ Acetaminophen (Percocet 10-325 Mg) 1 tab Q6H PRN PO PAIN SCALE 6 TO 10 Last administered on 08/25/16 05:06; Start 08/19/16 at 09:45 Morphine Sulfate (Morphine Inj) 4 mg Q3H PRN IV BREAKTHROUGH PAIN; Start at 09:45 Naloxone HCl (Narcan Inj) 0.4 mg UNSCH PRN IV SEE LABEL COMMENTS; Start at 09:45 Fentanyl Citrate (fentaNYL INJ) 100 mcg STK-MED ONCE .ROUTE ; Start 08/19/16 at 09:41; Stop 08/19/16 at 09:42; Status DC Carvedilol (Coreg) 6.25 mg BID PO Last administered on 08/20/16 08:40; Start 08/19/16 at 10:30; Stop 08/20/16 at 09:51; Status DC Insulin Human Regular (NovoLIN R INJ) 10 units ONCE ONCE IV PUSH ; Start at 18:30; Stop 08/19/16 at 18:31; Status DC Sodium Polystyrene Sulfonate (Kayexalate Liq) 15 gm ONCE ONCE PO Last administered on 08/19/16 18:24; Start 08/19/16 at 18:30; Stop 08/19/16 at 18:31 ; Status DC Clonidine (Catapres) 0.2 mg Q8H PO Last administered on 08/25/16 03:08; Start 08/20/16 at 10:00 Carvedilol (Coreg) 12.5 mg BID PO Last administered on 08/22/16 09:28; Start 08/20/16 at 21:00; Stop 08/22/16 at 16:46; Status DC Sodium Polystyrene Sulfonate (Kayexalate Liq) 15 gm ONCE ONCE PO Last administered on 08/20/16 13:22; Start 08/20/16 at 13:00; Stop 08/20/16 at 13:01 ; Status DC Polyethylene Glycol 17 gm 17 gm ONCE ONCE PO Last administered on 08/20/16 13 :22; Start 08/20/16 at 13:00; Stop 08/20/16 at 13:01; Status DC Vancomycin HCl 1000 mg/Sodium Chloride 250 ml @ 250 mls/hr ONCE ONCE IV Last administered on 08/20/16 13:23; Start 08/20/16 at 13:00; Stop 08/20/16 at 13:59 ; Status DC Piperacillin Sod/ Tazobactam Sod (Zosyn 2.25 Gm Premix) 50 ml @ 100 mls/hr Q8H IV Last administered on 08/24/16 15:11; Start 08/20/16 at 14:00; Stop at 16:58; Status DC Furosemide (Lasix) 40 mg DAILY PO Last administered on 08/23/16 09:03; Start 08/21/16 at 09:00; Stop 08/23/16 at 15:44; Status DC Albuterol/ Ipratropium (Duoneb Neb) 1 ampule Q8HR WHILE AWAKE NEB NEB Last administered on 08/23/16 09:03; Start 08/21/16 at 11:00; Stop 08/23/16 at 15:48 ; Status DC Albuterol Sulfate (Albuterol Neb) 2.5 mg Q4HR NEB PRN NEB Dyspnea; Start at 11:00 Albumin Human (Albumin 25% Inj) 25 gm ONCE ONCE IV Last administered on 14:20; Start 08/21/16 at 13:00; Stop 08/21/16 at 13:01; Status DC Furosemide (Lasix Inj) 20 mg ONCE ONCE IV PUSH Last administered on 08/21/16 13:46; Start 08/21/16 at 14:00; Stop 08/21/16 at 14:01; Status DC Carvedilol (Coreg) 12.5 mg Q12HR PO Last administered on 08/23/16 10:12; Start 08/22/16 at 21:00; Stop 08/23/16 at 15:46; Status DC Hydrochlorothiazide (Microzide) 12.5 mg BID@,18 PO ; Start 08/22/16 at 18:00; Stop 08/23/16 at 11:06; Status DC Furosemide (Lasix) 20 mg DAILY@12 PO ; Start 08/24/16 at 12:00; Status Cancel Furosemide (Lasix) 20 mg BID@09,12 PO ; Start 08/24/16 at 09:00; Stop 08/24/16 at 09:00; Status DC Labetalol HCl (Trandate) 200 mg Q12HR PO Last administered on 08/25/16 08:43; Start 08/23/16 at 21:00 Albuterol/ Ipratropium (Duoneb Neb) 1 ampule Q12HR NEB NEB Last administered on 08/25/16 08:00; Start 08/23/16 at 20:00 Furosemide (Lasix) 20 mg DAILY PO Last administered on 08/25/16 08:46; Start 08/24/16 at 09:00 Insulin Human NPH (NovoLIN N INJ) 10 units ONCE ONCE SQ Last administered on 09:48; Start 08/24/16 at 09:15; Stop 08/24/16 at 09:23; Status DC Nifedipine (Procardia Xl) 60 mg BID PO Last administered on 08/25/16 08:51; Start 08/24/16 at 21:00 Amoxicillin (Trimox) 500 mg Q8HR PO Last administered on 08/25/16 05:05; Start 08/24/16 at 22:00 Other Results Laboratory Tests Test 08/24/16 08/25/16 07:00 06:04 White Blood Count 5.9 TH/MM3 5.4 TH/MM3 Red Blood Count 4.33 MIL/MM3 3.99 MIL/MM3 Hemoglobin 12.7 GM/DL 11.8 GM/DL Hematocrit 37.9 % 35.1 % Mean Corpuscular Volume 87.7 FL 87.8 FL Mean Corpuscular Hemoglobin 29.4 PG 29.6 PG Mean Corpuscular Hemoglobin 33.5 % 33.8 % Concent Red Cell Distribution Width 16.4 % 16.6 % Platelet Count 174 TH/MM3 169 TH/MM3 Mean Platelet Volume 8.6 FL 8.9 FL Laboratory Tests Test 08/24/16 08/25/16 07:00 06:04 Sodium Level 135 MEQ/L 138 MEQ/L Potassium Level 5.1 MEQ/L 4.7 MEQ/L Chloride Level 105 MEQ/L 106 MEQ/L Carbon Dioxide Level 21.1 MEQ/L 22.6 MEQ/L Anion Gap 9 MEQ/L 9 MEQ/L Blood Urea Nitrogen 61 MG/DL 60 MG/DL Creatinine 2.90 MG/DL 2.94 MG/DL Estimat Glomerular Filtration 22 ML/MIN 22 ML/MIN Rate Random Glucose 216 MG/DL 172 MG/DL Calcium Level 9.6 MG/DL 9.2 MG/DL Phosphorus Level 4.3 MG/DL Objective Remarks Last Impressions Renal Ultrasound 08/17/16 0000 Signed Impressions: Service Date/Time: Wednesday, August 17, 2016 11:26 - CONCLUSION: 1. Normal ultrasound appearance of the right lower quadrant renal transplant with normal vascular assessment. 2. Chronic fluid collection at the lower pole of the transplant kidney measuring up to 3.5 cm. It has slightly decreased in size since the prior study. 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 Derrek Byrd MD Myocardial Perfusion Scan Nuc Med 08/17/16 0000 Signed Impressions: Service Date/Time: Wednesday, August 17, 2016 11:42 - CONCLUSION: Global hypokinesis and reduction in ejection fraction and no significant ischemia. RISK CATEGORY: Intermediate (1-3%% Annual Mortality Rate) Guillermo Frausto MD Foot MRI 08/17/16 0000 Signed Impressions: Service Date/Time: Wednesday, August 17, 2016 19:17 - CONCLUSION: Multilocular fluid intensity collection as described above which may reflect abscess. Skin thickening and subcutaneous edema is also present dorsally characteristic of cellulitis. No evidence of osteomyelitis Alejandro Morales MD Chest X-Ray 08/16/16 1114 Signed Impressions: Service Date/Time: August 11:58 - CONCLUSION: Changes most characteristic of congestive heart failure with pulmonary edema and small effusions now noted. Robin Reid MD Exam-Podiatry Constitutional General appearance: comfortable Nutritional status: normal Orientation: alert and oriented x3 Dermatological Exam Skin Temp - Right: Within Normal Limits Skin Texture - Right: Within Normal Limits Skin Elasticity - Right: Within Normal Limits Skin Tugor - Right: Within Normal Limits Hair Growth - Right: Within Normal Limits Pigmentation - Right: Within Normal Limits Skin Temp - Left: Within Normal Limits Skin Texture - Left: Within Normal Limits Skin Elasticity - Left: Within Normal Limits Skin Tugor - Left: Within Normal Limits Hair Growth - Left: Within Normal Limits Pigmentation - Left: Within Normal Limits Ulcers: Location/Measurements Open wound third interspace left foot. Dressing intact. Toes warm, pink and marcus upon compression. Vascular/Lymphatic Exam R Dorsails Pedis: Palpable L Dorsails Pedis: Palpable R Posterior Tibial: Palpable L Posterior Tibial: Palpable Neurologic Exam Present on right: Tingling, Paraesthesia Present on left: Tingling, Paraesthesia Muscle Strength Dorsiflexion (Right): Normal Plantarflexion (Right): Normal Inversion (Right): Normal Eversion (Right): Normal Digital (Right): Normal Dorsiflexion (Left): Normal Plantarflexion (Left): Normal Inversion (Left): Normal Eversion (Left): Normal Digital (Left): Normal Foot Range of Motion Dorsiflexion (Right): Normal Plantarflexion (Right): Normal Inversion (Right): Normal Eversion (Right): Normal Digital (Right): Normal Dorsiflexion (Left): Normal Plantarflexion (Left): Normal Inversion (Left): Normal Eversion (Left): Normal Digital (Left): Normal Joint Instability Bunion (Left): Pain on Bunion Palpitiation Assessment & Plan Diagnosis: (1) Abscess of left foot Status: Resolved A/P PLAN: Patient is to be discharged today. Follow-up with me in the wound center on Saturday or . Dressing changes per home health. Antibiotics per infectious disease. Chung Matos DPM Aug 25, 2016 10:42
[2016-08-25 13:04] VITALS: PULSE 60
[2016-09-20] MEDS ORDERED: AUGM875T PO (14:02)
== END 2016-08-25 12:35 | disposition home health service (06) | DRG 291 ==
LOC: NEPE 09:15 → NEDA 14:18 → N04B 16:30 → OBSVTOIN 08-20 18:05
PROVIDERS: ADMIT Hospitalist; ATTEND Hospitalist
PROC: 0J9R0ZX Drainage of Left Foot Subcutaneous Tissue and Fascia, Open Approach, Diagnostic (ICD-10-PCS; principal; 2016-08-19 08:59)
DX: I13.2 Hypertensive heart and chronic kidney disease with heart failure and with stage 5 chronic kidney disease, or end stage renal disease (principal); I50.43 Acute on chronic combined systolic (congestive) and diastolic (congestive) heart failure; N17.9 Acute kidney failure, unspecified; R18.8 Other ascites; E11.22 Type 2 diabetes mellitus with diabetic chronic kidney disease; J44.1 Chronic obstructive pulmonary disease with (acute) exacerbation; E11.649 Type 2 diabetes mellitus with hypoglycemia without coma; L02.612 Cutaneous abscess of left foot; Z94.0 Kidney transplant status; E87.5 Hyperkalemia; E11.319 Type 2 diabetes mellitus with unspecified diabetic retinopathy without macular edema; E78.5 Hyperlipidemia, unspecified; I35.0 Nonrheumatic aortic (valve) stenosis; K21.9 Gastro-esophageal reflux disease without esophagitis; G62.9 Polyneuropathy, unspecified; M21.612 Bunion of left foot; R09.02 Hypoxemia; H91.90 Unspecified hearing loss, unspecified ear; F41.9 Anxiety disorder, unspecified; B95.2 Enterococcus as the cause of diseases classified elsewhere; B95.61 Methicillin susceptible Staphylococcus aureus infection as the cause of diseases classified elsewhere; Z79.4 Long term (current) use of insulin; Z79.52 Long term (current) use of systemic steroids; Z86.19 Personal history of other infectious and parasitic diseases; Z87.891 Personal history of nicotine dependence
CPT/HCPCS: 71010; 73718; 76776; 78452; 80048; 80053; 80197; 81001; 82550; 82552; 82948; 83735; 83880; 84100; 84439; 84443; 84484; 85025; 85027; 85610; 85730; 86403; 87070; 87077; 87186; 87205; 93005; 93017; 93306; 94640; 94664; 96374; A9502; G0378; G8987-GP; G8988-GP; J0280; J1644; J1815; J1940; J2405; J2543; J2785; J3010; J3370; J7050; J7507; J7512; J7517; J7613; L3260; P9047

== ENCOUNTER 2016-10-12 21:55 | Emergency (ER) | payer MEDICARE, OTHER ==
[~2016-10-12 21:55] MED LIST changes: +AUGM875T PO; -BACT800T5 PO; +CARB45TA PO; -FERR65TA PO; -FURO1TAB62 PO; +FURO20TA PO; -ISOS10TA3 PO; +ISOS30TA3 PO; -NIFE1TAB85 PO; +NIFE30TA8 PO; +SPIRCAP INH; -TRIMIX; +TRIMIX IC; +VENTAER INH
[2016-10-12 21:58] VITALS: BP 180/81; PULSE 72; RESP 18; TEMP 100.4; O2SAT 95
[2016-10-12 23:51] VITALS: BP 168/74; PULSE 74; RESP 18; TEMP 100.2; O2SAT 93; O2SAT 94
--- NOTE | 2016-10-13 00:27 | PD ---
HPI Chief Complaint: chills Time Seen by Provider: 00:05 Travel History International Travel<30 days: No Contact w/Intl Traveler<30days: No Traveled to known affect area: No History of Present Illness HPI 66-year-old male states that he's been having chills and cough and feeling like he has fluid in his chest over the past couple of days. He states additionally he's been having drainage from his right foot that he's had prior infection in before. He states Dr. Esquivel took a culture but is not currently on any antibiotics. He states he's had a have surgery to that foot before for bad infection with staph. He denies other concurrent complaints. Quality is productive cough. Severity is frequent per patient. Duration is couple of days. PFSH Past Medical History Hx Anticoagulant Therapy: No Arthritis: No Asthma: No Autoimmune Disease: No Blood Disorders: No Anxiety: Yes Depression: No Heart Rhythm Problems: No Cancer: No Cardiac Catheterization: Yes Cardiovascular Problems: Yes (CHF) High Cholesterol: No Chemotherapy: No Chest Pain: No Congestive Heart Failure: Yes (fluid overload) COPD: Yes Cerebrovascular Accident: No Diabetes: Yes Patient Takes Glucophage: No Dialysis: Yes (M-W-F) Diminished Hearing: Yes ([place]) Endocrine: Yes Gastrointestinal Disorders: Yes (GERD) GERD: No Genitourinary: No Headaches: Yes Hepatitis: Yes (C CLEARED ) Hiatal Hernia: No Hypertension: Yes Immune Disorder: No Kidney Stones: No Musculoskeletal: Yes (ARTHRITIS, BACK PAIN) Neurologic: Yes (NEUROPATHY FEET, HANDS) Reproductive: No Respiratory: Yes Immunizations Current: Yes Migraines: No Radiation Therapy: No Renal Failure: Yes Seizures: No Sickle Cell Disease: No Sleep Apnea: No Thyroid Disease: No Ulcer: No Past Surgical History Abdominal Surgery: No AICD: No Arteriovenous Shunt: Yes (L AV FISTULA) Body Medical Devices: RIGHT URETERAL STENT Cardiac Surgery: Yes (BILAT CAROTIDS) Ear Surgery: No Endocrine Surgery: No Eye Surgery: Yes Genitourinary Surgery: Yes (RIGHT RENAL TRANSPLANT, (R) NEPHROS./ URETERAL STENTS (MULTI)) Gynecologic Surgery: No Insulin Pump: No Joint Replacement: No Oral Surgery: No Pacemaker: No Thoracic Surgery: No Other Surgery: Yes (bilat cea, right kidney july 2014) Social History Alcohol Use: No Tobacco Use: No Substance Use: No Allergies-Medications (Allergen,Severity, Reaction): Coded Allergies: No Known Allergies (Unverified , 10/12/16) Reported Meds & Prescriptions Reported Meds & Active Scripts Active Clindamycin (Clindamycin HCl) 300 Mg Cap 300 Mg PO TID 10 Days Spiriva Handihaler (Tiotropium Inh) 18 Mcg Cap 18 Mcg INH DAILY 1 capsule = 18 mcg Ventolin Hfa 18 GM Inh (Albuterol Sulfate) 90 Mcg/Act Aer 1 Puff INH Q4H PRN Furosemide 20 Mg Tab 20 Mg PO DAILY Reported Procardia XL (Nifedipine) 30 Mg Tab 30 Mg PO HS Feosol (Iron Carbonyl) 45 Mg Tab 45 Mg PO DAILY Isosorbide Mononitrate ER (Isosorbide Mononitrate) 30 Mg Cherise 30 Mg PO DAILY [Trimix Inj] 1 Injection IC INTERMITTENT PRN Novolog Inj (Insulin Aspart) 1,000 Unit/10 Ml Vial 0 SQ ACHS AND 3AM Sliding Scale as directed. Lantus Inj (Insulin Glargine) 1,000 Unit/10 Ml Vial 24 Units SQ HS Hydrocodone-Acetaminophen 10-325 mg Tab 1 Tab PO TID PRN Ativan (Lorazepam) 1 Mg Tab 3 Mg PO HS Lyrica (Pregabalin) 25 Mg Cap 25 Mg PO TID Miralax Powder (Polyethylene Glycol 3350 Powder) 17 Gm Powd 17 Gm PO DAILY PRN Mix and dissolve one measuring cap-ful (17 grams) in water or juice. Linzess (Linaclotide) 290 Mcg Cap 290 Mcg PO DAILY PRN Colace (Docusate Sodium) 100 Mg Cap 100 Mg PO BID Clonidine (Clonidine HCl) 0.1 Mg Tab 0.1 Mg PO DAILY Labetalol (Labetalol HCl) 200 Mg Tab 200 Mg PO BID Multivitamin Adults (Multiple Vitamins W/ Minerals) 1 Tab 1 Tab PO DAILY Prednisone 5 Mg Tab 5 Mg PO DAILY Cellcept (Mycophenolate Mofetil) 500 Mg Tab 500 Mg PO BID Tacrolimus 1 Mg Cap 3 Mg PO Q12H Sodium Bicarbonate 650 Mg Tab 650 Mg PO BIDPC Review of Systems Except as stated in HPI: all other systems reviewed are Neg Physical Exam Narrative GENERAL: Well-nourished, well-developed patient. SKIN: Warm and dry. HEAD: Normocephalic and atraumatic. EYES: No injection or drainage. ENT: No nasal drainage noted. NECK: Supple, trachea midline. CARDIOVASCULAR: Regular rate and rhythm RESPIRATORY: Breath sounds equal bilaterally at apices. No accessory muscle use. GASTROINTESTINAL: Abdomen soft, non-tender, nondistended. EXTREMITIES: Pain with palpation of the third digit with small amount of pus draining on plantar aspect that was cultured, no pain with other joints , neurovascularly intact, compartments soft. NEUROLOGICAL: Awake and alert. Motor and sensory grossly within normal limits. Normal speech. Data Data Last Documented VS Vital Signs Date Time Temp Pulse Resp B/P Pulse Ox O2 Delivery O2 Flow Rate FiO2 10/13/16 04:02 69 20 154/70 95 Room Air 10/12/16 23:51 100.2 Orders Complete Blood Count With Diff (10/12/16 23:44) Comprehensive Metabolic Panel (10/12/16 23:44) Prothrombin Time / Inr (Pt) (10/12/16 23:44) Act Partial Throm Time (Ptt) (10/12/16 23:44) Lactic Acid Sepsis Protocol (10/12/16 23:44) Magnesium (Mg) (10/12/16 23:44) Phosphorus (Po4) (10/12/16 23:44) Urinalysis - C+S If Indicated (10/12/16 23:44) Blood Culture (10/12/16 23:44) Chest, Single Ap (10/12/16 23:44) Ecg Monitoring (10/12/16 23:44) Iv Access Insert/Monitor (10/12/16 23:44) Oximetry (10/12/16 23:44) Influenzae A/B Antigen (10/12/16 23:44) B-Type Natriuretic Peptide (10/13/16 00:10) Wound Culture And Gram Stain (10/13/16 00:10) Foot, Complete ([id number]) (10/13/16 ) Acetaminophen (Tylenol) (10/13/16 01:15) Furosemide Inj (Lasix Inj) (10/13/16 02:45) Clindamycin Inj (Cleocin Inj) (10/13/16 02:45) Labs Laboratory Tests Test 10/13/16 00:20 White Blood Count 8.1 TH/MM3 Red Blood Count 4.68 MIL/MM3 Hemoglobin 12.9 GM/DL Hematocrit 40.1 % Mean Corpuscular Volume 85.8 FL Mean Corpuscular Hemoglobin 27.6 PG Mean Corpuscular Hemoglobin 32.1 % Concent Red Cell Distribution Width 15.1 % Platelet Count 132 TH/MM3 Mean Platelet Volume 9.4 FL Neutrophils (%) (Auto) 79.1 % Lymphocytes (%) (Auto) 9.5 % Monocytes (%) (Auto) 11.0 % Eosinophils (%) (Auto) 0.0 % Basophils (%) (Auto) 0.4 % Neutrophils # (Auto) 6.4 TH/MM3 Lymphocytes # (Auto) 0.8 TH/MM3 Monocytes # (Auto) 0.9 TH/MM3 Eosinophils # (Auto) 0.0 TH/MM3 Basophils # (Auto) 0.0 TH/MM3 CBC Comment DIFF FINAL Differential Comment Prothrombin Time 12.7 SEC Prothromb Time International 1.1 RATIO Ratio Activated Partial 32.9 SEC Thromboplast Time Urine Color YELLOW Urine Turbidity CLEAR Urine pH 5.0 Urine Specific [place] 1.017 Urine Protein TRACE mg/dL Urine Glucose (UA) NEG mg/dL Urine Ketones NEG mg/dL Urine Occult Blood NEG Urine Nitrite NEG Urine Bilirubin NEG Urine Urobilinogen LESS THAN 2.0 MG/DL Urine Leukocyte Esterase NEG Urine WBC LESS THAN 1 /hpf Urine Squamous Epithelial <1 /hpf Cells Urine Hyaline Casts 3 /lpf Urine Mucus FEW /lpf Microscopic Urinalysis Comment CATH-CULT NOT IND Sodium Level 137 MEQ/L Potassium Level 4.9 MEQ/L Chloride Level 107 MEQ/L Carbon Dioxide Level 19.9 MEQ/L Anion Gap 10 MEQ/L Blood Urea Nitrogen 71 MG/DL Creatinine 2.46 MG/DL Estimat Glomerular Filtration 27 ML/MIN Rate Random Glucose 183 MG/DL Lactic Acid Level 0.9 mmol/L Calcium Level 9.4 MG/DL Phosphorus Level 2.9 MG/DL Magnesium Level 2.0 MG/DL Total Bilirubin 1.5 MG/DL Aspartate Amino Transf 15 U/L (AST/SGOT) Alanine Aminotransferase 26 U/L (ALT/SGPT) Alkaline Phosphatase 97 U/L B-Type Natriuretic Peptide 2970 PG/ML Total Protein 6.8 GM/DL Albumin 3.4 GM/DL MDM Medical Decision Making Medical Screen Exam Complete: Yes Emergency Medical Condition: Yes Medical Record Reviewed: Yes (past history confirmed) Interpretation(s) CBC & BMP Diagram 10/13/16 00:20 Last 24 hours Impressions Foot X-Ray 10/13/16 0000 Signed Impressions: Service Date/Time: Thursday, October 13, 2016 00:34 - CONCLUSION: 1. Diffuse osteoarthritic change. 2. Moderate size spur of the inferior calcaneus. Robin Reid MD Chest X-Ray 10/12/16 2344 Signed Impressions: Service Date/Time: Thursday, October 13, 2016 00:02 - CONCLUSION: Interval improvement in pulmonary infiltrates and effusions. There is minimal hazy opacity with no new consolidation. Robin Reid MD Differential Diagnosis Pneumonia, URI, cellulitis, osteomyelitis, UTI Narrative Course Will check blood work, culture of wound, urinalysis, x-ray and reevaluate Patient without elevation of white count or lactate. Glucose is in good control. Chest x-ray shows improvement of infiltrates. BNP is elevated but patient stable on room air. Patient has fever and source is likely from his foot that was draining a small amount of pus without residual abscess. We'll give him Lasix and clindamycin and given his past history advised hospitalization but patient is wanting to go home so we will provide with clindamycin prescription and advised patient to come back later today for recheck. Renal function is at prior baseline with history of renal transplant. Gave return instructions for when to return sooner. at bedside Diagnosis Primary Impression: Fever Qualified Code: R50.9 - Fever, unspecified fever cause Additional Impressions: CHF (congestive heart failure) Qualified Code: I50.9 - Congestive heart failure, unspecified congestive heart failure chronicity, unspecified congestive heart failure type Foot infection Patient Instructions: General Instructions Additional Instructions: return later today for recheck, return sooner with any vomiting, or worsening symptoms Med/Other Pt SpecificInfo: Prescription(s) given Scripts Clindamycin 300 Mg [id number] Mg PO TID 10 Days Prov:Jagruti Huddleston MD 10/13/16 Disposition: 01 DISCHARGE HOME Condition: Stable Jagruti Huddleston MD Oct 13, 2016 00:27
--- NOTE | 2016-10-13 00:27 | RADRPT ---
EXAM DATE/TIME: 10/13/2016 00:02 [facility] COMPARISON: CHEST SINGLE AP, August 16, 2016, 11:58. INDICATIONS : Pt having fever and chills today. MEDICAL HISTORY : Chronic obstructive pulmonary disease. Diabetes mellitus type II. Hypertension. Hepatitis C, GERD , Renal failure, CHF, Left A.V. Fistula SURGICAL HISTORY : Right renal transplant, R. ureteral stent, Bilateral carotid ENCOUNTER: Initial ACUITY: 1 day PAIN SCORE: 7/10 LOCATION: Bilateral chest FINDINGS: 2 AP erect views of the chest were obtained and demonstrate interval improvement in the perihilar and bibasilar opacities with only minimal residual. The costophrenic angles are now clear. The heart siz e remains mildly prominent. There are mild atherosclerotic calcifications in the aorta. CONCLUSION: Interval improvement in pulmonary infiltrates and effusions. There is minimal hazy opacity with no ne w consolidation. Robin Reid MD on October 13, 2016 at 0:24 Board Certified Radiologist. This report was verified electronically.
[2016-10-13 00:40] LABS: AUTOMATED NEUTROPHIL # 6.4 TH/MM3 (1.8-7.7); BASOPHIL % 0.4 % (0.0-2.0); HEMATOCRIT 40.1 % (39.0-51.0); HEMO FLAGS DIFF FINAL; LYMPH % 9.5 % (9.0-44.0); LYMPHOCYTE # 0.8 TH/MM3 (1.0-4.8); MEAN CELL VOLUME 85.8 FL (80.0-100.0); MEAN CORPUSCULAR HEMOGLOBIN 27.6 PG (27.0-34.0); MEAN CORPUSCULAR HGB CONC 32.1 % (32.0-36.0); NEUT % 79.1 % (16.0-70.0); PLATELET COUNT 132 TH/MM3 (150-450); RED BLOOD COUNT 4.68 MIL/MM3 (4.50-5.90); RED CELL DISTRIBUTION WIDTH 15.1 % (11.6-17.2); WHITE BLOOD COUNT 8.1 TH/MM3 (4.0-11.0)
[2016-10-13] MEDS ORDERED: NIFE1TAB85 PO (00:49)
--- NOTE | 2016-10-13 00:54 | RADRPT ---
EXAM DATE/TIME: 10/13/2016 00:34 [facility] COMPARISON: No previous studies available for comparison. INDICATIONS : Pt having pain on bottom of left foot. MEDICAL HISTORY : Neuropathy SURGICAL HISTORY : None. ENCOUNTER: Initial ACUITY: 1 day PAIN SCORE: 8/10 LOCATION: Left foot FINDINGS: AP, lateral and oblique views of the foot were obtained and demonstrate diffuse osteoarthritic change greatest involving the first metatarsal-phalangeal joint with joint space loss, sclerosis and hypert rophic change. There are milder degenerative changes involving the metatarsal tarsal joints and inter tarsal joints. There is a moderate-sized spur off the inferior calcaneus at the site of attachment of the plantar neurosis. Extensive vascular calcifications are present. There is no acute fracture or m alalignment. CONCLUSION: 1. Diffuse osteoarthritic change. 2. Moderate size spur of the inferior calcaneus. Robin Reid MD on October 13, 2016 at 0:50 Board Certified Radiologist. This report was verified electronically.
[2016-10-13 00:58] LABS: APTT (PATIENT) 32.9 SEC (24.3-30.1); INTERNATIONAL NORMALIZED RATIO 1.1 RATIO; PROTHROMBIN TIME - PATIENT 12.7 SEC (9.8-11.6)
[2016-10-13 00:59] LABS: BLOOD, URINE NEG (NEG); GLUCOSE,URINE NEG (NEG); HYALINE CAST, URINE 3 /lpf (RARE); KETONE, URINE NEG (NEG); MUCUS URINE FEW /lpf (OCC); NITRITE,URINE NEG (NEG); SQUAMOUS EPITHELIAL CELL URINE <1 /hpf (0-5); URINE COLOR YELLOW (YELLW/STRAW)
[2016-10-13 01:01] LABS: COMMENT (UR) CATH-CULT NOT IND; CULTURE IF INDICATED CATH CULTURE NOT IND
[2016-10-13 01:12] LABS: ALT (GPT) 26 U/L (12-78); ANION GAP 10 MEQ/L (5-15); AST (GOT) 15 U/L (15-37); BICARBONATE 19.9 MEQ/L (21.0-32.0); BLOOD UREA NITROGEN 71 MG/DL (7-18); CHLORIDE 107 MEQ/L (98-107); GLOMERULAR FILTRATION RATE 27 ML/MIN (>89); POTASSIUM 4.9 MEQ/L (3.5-5.1); SODIUM (NA) 137 MEQ/L (136-145)
[2016-10-13 01:14] LABS: ALKALINE PHOSPHATASE 97 U/L (45-117); TOTAL BILIRUBIN ADULT 1.5 MG/DL (0.2-1.0)
[2016-10-13] MEDS ORDERED: ACETAMINOPHEN 325 MG TAB PO ONE (01:15)
[2016-10-13] MEDS ORDERED: CLIN1CAP6 PO (02:43)
[2016-10-13] MEDS ORDERED: FUROSEMIDE 40 MG/4 ML VIAL IV PUSH ONE (02:45)
[2016-10-13] MEDS ORDERED: CLINDAMYCIN INJ 600 MG in SODIUM CHLORIDE 0.9% INJ 100 ML IV ONE (02:45)
[2016-10-13 04:02] VITALS: BP 154/70; PULSE 69; RESP 20; O2SAT 95
[2016-10-13] MEDS ORDERED: FERR200T PO (13:12)
[2016-10-13] MEDS ORDERED: MULTTAB67 PO (13:12)
[2016-10-13] MEDS ORDERED: MIRA3350 PO (13:12)
--- NOTE | 2016-10-14 09:56 | EKG ---
Date Performed: 10/13/2016 Time Performed: 00:12:12 PTAGE: 66 years EKG: Sinus rhythm MARKED LEFT AXIS DEVIATION LEFT VENTRICULAR HYPERTROPHY AND ST-T CHANGE ABNORMAL ECG NO PREVIOUS TRACING DOCTOR: Nura Young Interpretating Date/Time 10/14/2016 09:46:07
== END 2016-10-13 04:18 | disposition home or self-care (01) ==
LOC: NEPC 21:55
DX: R50.9 Fever, unspecified (principal); I50.9 Heart failure, unspecified; L08.89 Other specified local infections of the skin and subcutaneous tissue; B37.9 Candidiasis, unspecified; R94.31 Abnormal electrocardiogram [ECG] [EKG]; L97.509 Non-pressure chronic ulcer of other part of unspecified foot with unspecified severity
CPT/HCPCS: 10060; 71010; 73630; 80053; 81001; 83605; 83735; 83880; 84100; 85025; 85610; 85730; 86403; 87040; 87070; 87106; 87186; 87205; 87804; 93005; 96365; 96375; 99284; J1940

== ENCOUNTER 2016-10-13 12:49 | Emergency (ER) | payer MEDICARE, OTHER ==
[~2016-10-13 12:49] MED LIST changes: +CLIN1CAP6 PO; +NIFE1TAB85 PO
[2016-10-13 12:53] VITALS: BP 156/70; PULSE 82; RESP 24; TEMP 97.7; O2SAT 96
[2016-10-13] MEDS ORDERED: FERR200T PO (13:12)
[2016-10-13] MEDS ORDERED: MIRA3350 PO (13:12)
[2016-10-13] MEDS ORDERED: MULTTAB67 PO (13:12)
--- NOTE | 2016-10-13 13:28 | PD ---
HPI Chief Complaint: Medical Clearance Time Seen by Provider: 13:19 Travel History International Travel<30 days: No Contact w/Intl Traveler<30days: No Traveled to known affect area: No History of Present Illness HPI 66-year-old male here for follow-up. Patient seen here in our emergency department yesterday for a wound problem. He had a wound on the left foot and associated fever, shortness of breath. He has underlying CHF and renal transplant. It was recommended that he be admitted given his medical comorbidities the patient declined. He was discharged home with clindamycin. Instructed to follow-up in the ER today for repeat checkup. States that overall he is feeling better, his shortness of breath is slightly improved. He has not had any fevers or chills. The wound on the foot is continuing to improve and he has not had any drainage. PFSH Past Medical History Hx Anticoagulant Therapy: No Arthritis: No Asthma: No Autoimmune Disease: No Blood Disorders: No Anxiety: Yes Depression: No Heart Rhythm Problems: No Cancer: No Cardiac Catheterization: Yes Cardiovascular Problems: Yes (CHF) High Cholesterol: No Chemotherapy: No Chest Pain: No Congestive Heart Failure: Yes (fluid overload) COPD: Yes Cerebrovascular Accident: No Diabetes: Yes Patient Takes Glucophage: No Dialysis: Yes (M-W-) Diminished Hearing: Yes ([place]) Endocrine: Yes Gastrointestinal Disorders: Yes (GERD) GERD: No Genitourinary: No Headaches: Yes Hepatitis: Yes (C CLEARED ) Hiatal Hernia: No Hypertension: Yes Immune Disorder: No Kidney Stones: No Musculoskeletal: Yes (ARTHRITIS, BACK PAIN) Neurologic: Yes (NEUROPATHY FEET, HANDS) Reproductive: No Respiratory: Yes Immunizations Current: Yes Migraines: No Radiation Therapy: No Renal Failure: Yes Seizures: No Sickle Cell Disease: No Sleep Apnea: No Thyroid Disease: No Ulcer: No Past Surgical History Abdominal Surgery: No AICD: No Arteriovenous Shunt: Yes (L AV FISTULA) Body Medical Devices: RIGHT URETERAL STENT Cardiac Surgery: Yes (BILAT CAROTIDS) Ear Surgery: No Endocrine Surgery: No Eye Surgery: Yes Genitourinary Surgery: Yes (RIGHT RENAL TRANSPLANT, (R) NEPHROS./ URETERAL STENTS (MULTI)) Gynecologic Surgery: No Insulin Pump: No Joint Replacement: No Oral Surgery: No Pacemaker: No Thoracic Surgery: No Other Surgery: Yes (bilat cea, right kidney july 2014) Social History Alcohol Use: No Tobacco Use: No Substance Use: No Allergies-Medications (Allergen,Severity, Reaction): Coded Allergies: No Known Allergies (Unverified , 10/12/16) Reported Meds & Prescriptions Reported Meds & Active Scripts Active Clindamycin (Clindamycin HCl) 300 Mg Cap 300 Mg PO TID 10 Days Spiriva Handihaler (Tiotropium Inh) 18 Mcg Cap 18 Mcg INH DAILY 1 capsule = 18 mcg Ventolin Hfa 18 GM Inh (Albuterol Sulfate) 90 Mcg/Act Aer 1 Puff INH Q4H PRN Furosemide 20 Mg Tab 20 Mg PO DAILY Reported Miralax Powder (Polyethylene Glycol 3350 Powder) 17 Gm Powd 17 Gm PO DAILY Mix and dissolve one measuring cap-ful (17 grams) in water or juice. Feosol (Ferrous Sulfate) 200 Mg Tab 200 Mg PO DAILY Multiple Vitamin 1 Tab 1 Tab PO DAILY Procardia XL (Nifedipine) 30 Mg Tab 30 Mg PO HS Isosorbide Mononitrate ER (Isosorbide Mononitrate) 30 Mg Cherise 30 Mg PO DAILY [Trimix Inj] 1 Injection IC INTERMITTENT PRN Novolog Inj (Insulin Aspart) 1,000 Unit/10 Ml Vial 0 SQ ACHS AND 3AM Sliding Scale as directed. Lantus Inj (Insulin Glargine) 1,000 Unit/10 Ml Vial 24 Units SQ HS Hydrocodone-Acetaminophen 10-325 mg Tab 1 Tab PO TID PRN Ativan (Lorazepam) 1 Mg Tab 3 Mg PO HS Lyrica (Pregabalin) 25 Mg Cap 25 Mg PO TID Linzess (Linaclotide) 290 Mcg Cap 290 Mcg PO DAILY PRN Colace (Docusate Sodium) 100 Mg Cap 100 Mg PO BID Clonidine (Clonidine HCl) 0.1 Mg Tab 0.1 Mg PO DAILY Labetalol (Labetalol HCl) 200 Mg Tab 200 Mg PO BID Prednisone 5 Mg Tab 5 Mg PO DAILY Cellcept (Mycophenolate Mofetil) 500 Mg Tab 500 Mg PO BID Tacrolimus 1 Mg Cap 3 Mg PO Q12H Sodium Bicarbonate 650 Mg Tab 650 Mg PO BIDPC Review of Systems Except as stated in HPI: all other systems reviewed are Neg Physical Exam Narrative GENERAL: Pleasant elderly male in no acute distress SKIN: Focused skin assessment warm/dry. HEAD: Normocephalic. EYES: No scleral icterus. No injection or drainage. ENT: Mucous membranes pink and moist. NECK: Supple CARDIOVASCULAR: Regular rate and rhythm. No murmur appreciated. RESPIRATORY: No accessory muscle use. Decreased in bilateral bases with occasional crackle GASTROINTESTINAL: Abdomen soft, non-tender, nondistended. MUSCULOSKELETAL left foot without any open wound. There is a small papule/ callus on the plantar aspect of the left foot but no fluctuance or erythema NEUROLOGICAL: Awake and alert. Normal speech. PSYCHIATRIC: Appropriate mood and affect; insight and judgment normal. Data Data Last Documented VS Vital Signs Date Time Temp Pulse Resp B/P Pulse Ox O2 Delivery O2 Flow Rate FiO2 10/13/16 12:53 97.7 82 24 156/70 96 Room Air MDM Medical Decision Making Medical Screen Exam Complete: Yes Emergency Medical Condition: Yes Medical Record Reviewed: Yes Differential Diagnosis 66-year-old male with history of CHF, renal transplant here for wound recheck. On exam his wound is essentially resolved I don't see anything that is open or draining. He had a fever yesterday but these had symptomatically resolved and his laboratory results from yesterday were reviewed and unremarkable. Shortness of breath is at baseline and improved since yesterday. Narrative Course The patient is reassured, and discharged home. Instructed to continue medications and follow up with providers as discussed. Diagnosis Primary Impression: Visit for wound check Additional Instructions: Continue medications as prescribed. Follow-up with wound physician, ballistics expert as discussed. Med/Other Pt SpecificInfo: No Change to Meds Disposition: 01 DISCHARGE HOME Condition: Stable Veronica Diego MD Oct 13, 2016 13:28
== END 2016-10-13 14:01 | disposition home or self-care (01) ==
LOC: NEPD 12:49
DX: Z09 Encounter for follow-up examination after completed treatment for conditions other than malignant neoplasm (principal)
CPT/HCPCS: 99281

== ENCOUNTER 2016-10-16 16:46 | Inpatient (IN) | payer MEDICARE, OTHER ==
[~2016-10-16] VITALS: Ht 185.4 cm; Wt 76.2 kg
[~2016-10-16 16:46] MED LIST changes: -AUGM875T PO; -CARB45TA PO; +FERR200T PO; +MIRA3350 PO; -MIRA33504 PO; -MULT1TAB84 PO; +MULTTAB67 PO; -NIFE30TA8 PO
[2016-10-16 16:48] VITALS: BP 188/84; PULSE 76; RESP 18; TEMP 98; O2SAT 96
[2016-10-16] MEDS ORDERED: SODIUM CHLORID 0.9% 500 ML INJ 500 ML IV ONE (17:30)
[2016-10-16] MEDS ORDERED: SODIUM CHLORIDE 0.9% FLUSH 10 ML FLUSH IVF PRN (17:30)
--- NOTE | 2016-10-16 17:32 | PD ---
HPI Chief Complaint: Chest Pain Time Seen by Provider: 17:32 Travel History International Travel<30 days: No Contact w/Intl Traveler<30days: No Traveled to known affect area: No History of Present Illness HPI 66-year-old male with a history of hypertension, diabetes, COPD, CHF, chronic kidney disease with renal transplant presents to the emergency department for evaluation of fever, chest pain and shortness of breath. Patient states that he has had intermittent fever over the past 3-4 days. States that this morning he had a fever of 101F at home. He is complaining of chills today. States that last night he developed intermittent midsternal chest pain that is aggravated with inspiration. States he also feels mildly short of breath. States he has had a productive cough for about one week. He also complains of headache and generalized weakness. Denies lightheadedness, syncope, abdominal pain, nausea, vomiting, diarrhea. He states that he had a wound to his left plantar foot that he was seen about 3 days ago and placed on clindamycin, states it is much better since starting the antibiotics. 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 Hall who told him to come to the emergency room for further evaluation of his symptoms. No other complaints. PFSH Past Medical History Hx Anticoagulant Therapy: No Arthritis: No Asthma: No Autoimmune Disease: No Blood Disorders: No Anxiety: Yes Depression: No Heart Rhythm Problems: No Cancer: No Cardiac Catheterization: Yes Cardiovascular Problems: Yes (HTN ) High Cholesterol: No Chemotherapy: No Chest Pain: No Congestive Heart Failure: Yes (fluid overload) COPD: Yes Cerebrovascular Accident: No Diabetes: Yes Dialysis: Yes (M-W-F) Diminished Hearing: Yes ([place]) Endocrine: Yes Gastrointestinal Disorders: Yes (GERD) GERD: No Genitourinary: No Headaches: Yes Hepatitis: Yes (C CLEARED ) Hiatal Hernia: No Hypertension: Yes Immune Disorder: No Kidney Stones: No Musculoskeletal: Yes (ARTHRITIS, BACK PAIN) Neurologic: Yes (NEUROPATHY FEET, HANDS) Reproductive: No Respiratory: Yes Immunizations Current: Yes Migraines: No Radiation Therapy: No Renal Failure: Yes Seizures: No Sickle Cell Disease: No Sleep Apnea: No Thyroid Disease: No Ulcer: No Past Surgical History Abdominal Surgery: No AICD: No Arteriovenous Shunt: Yes (L AV FISTULA) Body Medical Devices: RIGHT URETERAL STENT Cardiac Surgery: Yes (BILAT CAROTIDS) Ear Surgery: No Endocrine Surgery: No Eye Surgery: Yes Genitourinary Surgery: Yes (RIGHT RENAL TRANSPLANT, (R) NEPHROS./ URETERAL STENTS (MULTI)) Gynecologic Surgery: No Insulin Pump: No Joint Replacement: No Oral Surgery: No Pacemaker: No Thoracic Surgery: No Other Surgery: Yes (bilat cea, right kidney july 2014) Social History Alcohol Use: No Tobacco Use: No Substance Use: No Allergies-Medications (Allergen,Severity, Reaction): Coded Allergies: No Known Allergies (Unverified , 10/12/16) Reported Meds & Prescriptions Reported Meds & Active Scripts Active Clindamycin (Clindamycin HCl) 300 Mg Cap 300 Mg PO TID 10 Days Spiriva Handihaler (Tiotropium Inh) 18 Mcg Cap 18 Mcg INH DAILY 1 capsule = 18 mcg Ventolin Hfa 18 GM Inh (Albuterol Sulfate) 90 Mcg/Act Aer 1 Puff INH Q4H PRN Furosemide 20 Mg Tab 20 Mg PO DAILY Reported Lantus Inj (Insulin Glargine) 100 Unit/Ml Inj 24 Units SQ NIGHTLY Colace (Docusate Sodium) 100 Mg Capsule 100 Mg PO BID Feosol (Ferrous Sulfate) 200 Mg Tab 45 Mg PO DAILY Miralax Powder (Polyethylene Glycol 3350 Powder) 17 Gm Powd 17 Gm PO DAILY Mix and dissolve one measuring cap-ful (17 grams) in water or juice. Feosol (Ferrous Sulfate) 200 Mg Tab 200 Mg PO DAILY Multiple Vitamin 1 Tab 1 Tab PO DAILY Procardia XL (Nifedipine) 30 Mg Tab 30 Mg PO HS Isosorbide Mononitrate ER (Isosorbide Mononitrate) 30 Mg Cherise 30 Mg PO DAILY [Trimix Inj] 1 Injection IC INTERMITTENT PRN Novolog Inj (Insulin Aspart) 1,000 Unit/10 Ml Vial 0 SQ ACHS AND 3AM Sliding Scale as directed. Lantus Inj (Insulin Glargine) 1,000 Unit/10 Ml Vial 24 Units SQ HS Hydrocodone-Acetaminophen 10-325 mg Tab 1 Tab PO TID PRN Ativan (Lorazepam) 1 Mg Tab 3 Mg PO HS Lyrica (Pregabalin) 25 Mg Cap 25 Mg PO TID Linzess (Linaclotide) 290 Mcg Cap 290 Mcg PO DAILY PRN Colace (Docusate Sodium) 100 Mg Cap 100 Mg PO BID Clonidine (Clonidine HCl) 0.1 Mg Tab 0.1 Mg PO DAILY Labetalol (Labetalol HCl) 200 Mg Tab 200 Mg PO BID Prednisone 5 Mg Tab 5 Mg PO DAILY Cellcept (Mycophenolate Mofetil) 500 Mg Tab 500 Mg PO BID Tacrolimus 1 Mg Cap 3 Mg PO Q12H Sodium Bicarbonate 650 Mg Tab 650 Mg PO BIDPC Review of Systems Except as stated in HPI: all other systems reviewed are Neg Physical Exam Narrative GENERAL: Well-nourished and well-developed pleasant male patient in no acute distress. SKIN: Warm and dry. Wound to left plantar foot is healed, only a scab remains. No erythema, warmth, swelling or tenderness. HEAD: Normocephalic and atraumatic. EYES: No injection, drainage, or hyphema noted. PERRLA. EOMI. ENT: No nasal drainage noted. Oropharynx is clear. NECK: Supple and the trachea is midline. CARDIOVASCULAR: Regular rate and rhythm. RESPIRATORY: Breath sounds are equal bilaterally with no accessory muscle use, wheezing, rhonchi, or crackles. GASTROINTESTINAL: Abdomen is soft, non-tender, and nondistended. MUSCULOSKELETAL: No obvious deformities, swelling, cyanosis, or ecchymosis is present throughout the upper and lower extremities. Patient has full range of motion without any signs of neurovascular compromise. NEUROLOGICAL: Awake, alert, and oriented. Normal speech and gait. Cranial nerves are grossly intact. Data Data Last Documented VS Vital Signs Date Time Temp Pulse Resp B/P Pulse Ox O2 Delivery O2 Flow Rate FiO2 10/16/16 18:20 99.6 78 20 190/84 98 10/16/16 18:12 Room Air Orders Complete Blood Count With Diff (10/16/16 17:30) Comprehensive Metabolic Panel (10/16/16 17:30) B-Type Natriuretic Peptide (10/16/16 17:30) Act Partial Throm Time (Ptt) (10/16/16 17:30) Prothrombin Time / Inr (Pt) (10/16/16 17:30) Magnesium (Mg) (10/16/16 17:30) Ckmb (Isoenzyme) Profile (10/16/16 17:30) Troponin I (10/16/16 17:30) Urinalysis - C+S If Indicated (10/16/16 17:30) Influenzae A/B Antigen (10/16/16 17:30) Iv Access Insert/Monitor (10/16/16 17:30) Electrocardiogram (10/16/16 17:30) Ecg Monitoring (10/16/16 17:30) Oximetry (10/16/16 17:30) Oxygen Administration (10/16/16 17:30) Chest, Single Ap (10/16/16 17:30) Sodium Chloride 0.9% Flush (Ns Flush) (10/16/16 17:30) Lactic Acid Sepsis Protocol (10/16/16 17:30) Blood Culture (10/16/16 17:30) Sodium Chlorid 0.9% 500 Ml Inj (Ns 500 M (10/16/16 17:30) Influenzae A/B Antigen (10/16/16 17:48) Morphine Inj (Morphine Inj) (10/16/16 18:00) Ondansetron Inj (Zofran Inj) (10/16/16 18:00) Tacrolimus (Prograf) (10/16/16 18:15) Acetaminophen (Tylenol) (10/16/16 18:45) Mycophenolate Mofetil (Cellcept) (10/16/16 18:45) Piperacil-Tazo 2.25 Gm Premix (Zosyn 2.2 (10/16/16 18:45) Vancomycin Inj (Vancomycin Inj) (10/16/16 18:45) Hydromorphone Pf Inj (Dilaudid Pf Inj) (10/16/16 19:15) Admit Order (Ed Use Only) (10/16/16 19:24) Labs Laboratory Tests Test 10/16/16 10/16/16 17:50 18:00 White Blood Count 6.8 TH/MM3 Red Blood Count 4.42 MIL/MM3 Hemoglobin 12.2 GM/DL Hematocrit 37.7 % Mean Corpuscular Volume 85.2 FL Mean Corpuscular Hemoglobin 27.7 PG Mean Corpuscular Hemoglobin 32.5 % Concent Red Cell Distribution Width 15.0 % Platelet Count 136 TH/MM3 Mean Platelet Volume 9.2 FL Neutrophils (%) (Auto) 75.7 % Lymphocytes (%) (Auto) 11.5 % Monocytes (%) (Auto) 12.5 % Eosinophils (%) (Auto) 0.1 % Basophils (%) (Auto) 0.2 % Neutrophils # (Auto) 5.2 TH/MM3 Lymphocytes # (Auto) 0.8 TH/MM3 Monocytes # (Auto) 0.9 TH/MM3 Eosinophils # (Auto) 0.0 TH/MM3 Basophils # (Auto) 0.0 TH/MM3 CBC Comment DIFF FINAL Differential Comment Prothrombin Time 11.9 SEC Prothromb Time International 1.1 RATIO Ratio Activated Partial 34.2 SEC Thromboplast Time Sodium Level 134 MEQ/L Potassium Level 5.2 MEQ/L Chloride Level 105 MEQ/L Carbon Dioxide Level 16.9 MEQ/L Anion Gap 12 MEQ/L Blood Urea Nitrogen 75 MG/DL Creatinine 2.43 MG/DL Estimat Glomerular Filtration 27 ML/MIN Rate Random Glucose 183 MG/DL Lactic Acid Level 0.7 mmol/L Calcium Level 9.4 MG/DL Magnesium Level 2.2 MG/DL Total Bilirubin 1.2 MG/DL Aspartate Amino Transf 16 U/L (AST/SGOT) Alanine Aminotransferase 32 U/L (ALT/SGPT) Alkaline Phosphatase 116 U/L Total Creatine Kinase 75 U/L Troponin I 0.03 NG/ML B-Type Natriuretic Peptide 2215 PG/ML Total Protein 6.9 GM/DL Albumin 3.3 GM/DL Urine Color YELLOW Urine Turbidity CLEAR Urine pH 5.5 Urine Specific [place] 1.019 Urine Protein TRACE mg/dL Urine Glucose (UA) NEG mg/dL Urine Ketones NEG mg/dL Urine Occult Blood NEG Urine Nitrite NEG Urine Bilirubin NEG Urine Urobilinogen LESS THAN 2.0 MG/DL Urine Leukocyte Esterase NEG Urine RBC LESS THAN 1 /hpf Urine Mucus FEW /lpf Microscopic Urinalysis Comment CULT NOT INDICATED MDM Medical Decision Making Medical Screen Exam Complete: Yes Emergency Medical Condition: Yes Differential Diagnosis Sepsis versus pneumonia versus influenza versus bronchitis versus heart failure Narrative Course 66-year-old male with a history of renal transplant on chronic immunosuppressive agents presents to the emergency department for evaluation of intermittent fevers, cough, chest pain and shortness of breath. Patient is afebrile here in the emergency department. Vital signs are within normal limits. IV access is obtained, labs have been drawn and sent. Patient is placed on cardiac telemetry and pulse oximetry monitoring. Chest x-ray is negative for any acute abnormalities. CBC shows mild anemia with hemoglobin of 12.2, hematocrit 37.7. Coags are unremarkable. CMP shows renal insufficiency with a creatinine of 2.43, BUN 75, GFR 27. This is at the patient's baseline. Slight hyperkalemia with a potassium of 5.2. Troponin is 0.03. BNP is 2215. Lactic acid 0.7. Influenza swab is negative. Urinalysis is unremarkable. Patient noted to have significant chills with a temperature of 99.6F and is given Tylenol. This is a patient who is chronically immunosuppressed on steroids and antirejection medications and has had intermittent fevers and chills for the last several days. There is no clear source of infection therefore the patient will be treated empirically with Zosyn and vancomycin. I discussed the case with my attending physician Dr. Ayala who also evaluated the patient and recommends admission for chest pain and fever without a source. Physician Communication Physician Communication I spoke with Dr. Vincent [facility] who agrees to keep the patient in observation. Diagnosis Primary Impression: Chest pain Qualified Code: R07.9 - Chest pain, unspecified type Additional Impressions: CHF (congestive heart failure) Qualified Code: I50.32 - Chronic diastolic congestive heart failure Fever Qualified Code: R50.9 - Fever, unspecified fever cause Immunosuppression Admitting Information Admitting Physician Requests: Observation Johanny Morton Oct 16, 2016 17:32
[2016-10-16] MEDS ORDERED: ONDANSETRON HCL 4 MG/2 ML VIAL IV PUSH ONE (18:00)
[2016-10-16] MEDS ORDERED: MORPHINE SULFATE 4 MG/ML INJ IV PUSH ONE (18:00)
[2016-10-16 18:03] LABS: AUTOMATED NEUTROPHIL # 5.2 TH/MM3 (1.8-7.7); BASOPHIL % 0.2 % (0.0-2.0); EOSINOPHIL % 0.1 % (0.0-4.0); HEMATOCRIT 37.7 % (39.0-51.0); HEMO FLAGS DIFF FINAL; LYMPH % 11.5 % (9.0-44.0); LYMPHOCYTE # 0.8 TH/MM3 (1.0-4.8); MEAN CELL VOLUME 85.2 FL (80.0-100.0); MEAN CORPUSCULAR HEMOGLOBIN 27.7 PG (27.0-34.0); MEAN CORPUSCULAR HGB CONC 32.5 % (32.0-36.0); MONO % 12.5 % (0.0-8.0); NEUT % 75.7 % (16.0-70.0); PLATELET COUNT 136 TH/MM3 (150-450); RED BLOOD COUNT 4.42 MIL/MM3 (4.50-5.90); WHITE BLOOD COUNT 6.8 TH/MM3 (4.0-11.0)
[2016-10-16 18:12] LABS: APTT (PATIENT) 34.2 SEC (24.3-30.1); INTERNATIONAL NORMALIZED RATIO 1.1 RATIO; PROTHROMBIN TIME - PATIENT 11.9 SEC (9.8-11.6)
--- NOTE | 2016-10-16 18:14 | RADRPT ---
EXAM DATE/TIME: 10/16/2016 17:54 [place] COMPARISON: CHEST SINGLE AP, October 13, 2016, 0:02. INDICATIONS : Shortness of breath. MEDICAL HISTORY : Chronic obstructive pulmonary disease. Diabetes mellitus type II. SURGICAL HISTORY : Right renal transplant, R. ureteral stent, Bilateral carotid ENCOUNTER: Initial ACUITY: 1 day PAIN SCORE: 4/10 LOCATION: Bilateral chest FINDINGS: A single view of the chest demonstrates the lungs to be symmetrically aerated without evidence of mas s, infiltrate or effusion. The cardiomediastinal contours are unremarkable. Osseous structures are intact. CONCLUSION: No evidence of acute cardiopulmonary disease. Derrek Arriaza MD on October 16, 2016 at 18:12 Board Certified Radiologist. This report was verified electronically.
[2016-10-16] MEDS ORDERED: TACROLIMUS 1 MG CAP PO ONE (18:15)
[2016-10-16 18:20] VITALS: BP 190/84; PULSE 78; RESP 20; TEMP 99.6; O2SAT 98
[2016-10-16 18:30] LABS: ANION GAP 12 MEQ/L (5-15); AST (GOT) 16 U/L (15-37); BICARBONATE 16.9 MEQ/L (21.0-32.0); BLOOD UREA NITROGEN 75 MG/DL (7-18); CHLORIDE 105 MEQ/L (98-107); GLOMERULAR FILTRATION RATE 27 ML/MIN (>89); MAGNESIUM 2.2 MG/DL (1.5-2.5); POTASSIUM 5.2 MEQ/L (3.5-5.1); SODIUM (NA) 134 MEQ/L (136-145)
[2016-10-16 18:31] LABS: ALT (GPT) 32 U/L (12-78)
[2016-10-16 18:35] LABS: ALKALINE PHOSPHATASE 116 U/L (45-117); TOTAL BILIRUBIN ADULT 1.2 MG/DL (0.2-1.0)
[2016-10-16] MEDS ORDERED: PIPERACIL-TAZO 2.25 GM PREMIX 50 ML IV ONE (18:45)
[2016-10-16] MEDS ORDERED: ACETAMINOPHEN 500 MG CPLT PO ONE (18:45)
[2016-10-16] MEDS ORDERED: VANCOMYCIN INJ 1,000 MG in SODIUM CHLOR 0.9% 250 ML INJ 250 ML IV ONE (18:45)
[2016-10-16 18:55] LABS: BLOOD, URINE NEG (NEG); GLUCOSE,URINE NEG (NEG); KETONE, URINE NEG (NEG); MUCUS URINE FEW /lpf (OCC); NITRITE,URINE NEG (NEG); PH, URINE 5.5 (5.0-8.5); URINE COLOR YELLOW (YELLW/STRAW)
[2016-10-16 18:56] LABS: CREATINE KINASE 75 U/L (39-308)
[2016-10-16 18:56] LABS: COMMENT (UR) CULT NOT INDICATED; CULTURE IF INDICATED CULT NOT INDICATED
[2016-10-16] MEDS ORDERED: FERR200T PO (19:08)
[2016-10-16] MEDS ORDERED: COLA100C PO (19:08)
[2016-10-16] MEDS ORDERED: LANTUS2P SQ (19:08)
[2016-10-16] MEDS ORDERED: HYDROmorphone HCL PF 1 MG/ML VIAL IV PUSH ONE (19:15)
[2016-10-16] MEDS: MYCOPHENOLATE MOFETIL 500 MG TAB PO SCH ×2 (19:18→20:32)
[2016-10-16] MEDS ORDERED: NALOXONE HCL 0.4 MG/ML AMP IV PRN (19:30)
[2016-10-16] MEDS ORDERED: SODIUM CHLORIDE 0.9% FLUSH 10 ML FLUSH IV FLUSH PRN (19:30)
[2016-10-16 20:30] VITALS: BP 174/79; PULSE 75; RESP 18; TEMP 99; O2SAT 98
[2016-10-16] MEDS: SODIUM CHLORIDE 0.9% FLUSH 10 ML FLUSH IV FLUSH SCH (21:00)
[2016-10-16 23:42] VITALS: BP 169/77; PULSE 72; RESP 16; TEMP 98.4; O2SAT 90
[2016-10-17] VITALS (11 sets, daily range): BP systolic 154–190; BP diastolic 74–87; PULSE 68–78; RESP 16–18; TEMP 96.8–99; O2SAT 92–99
[2016-10-17] MEDS: PIPERACIL-TAZO 4.5 GM PREMIX 100 ML IV SCH ×3 (02:00→12:56)
[2016-10-17] MEDS ORDERED: Vancomycin Consult Pharmacy 1 EA OTHER SCH (02:00)
--- NOTE | 2016-10-17 02:07 | HHI.HP ---
[facility] Kristen Gordon Admission Diagnosis Chest Pain, CHF, Fever, Chronic Immunosuppression Diagnoses: Travel History International Travel<30 Days: No Contact w/Intl Traveler <30 Da: No Traveled to Known Affected Are: No History of Present Illness History from patient, ER PA communication, and review of medical records. Patient reported that he was having chills since . He stated he came to the emergency room at that time on afternoon and he was given clindamycin upon discharge. He stated he took clindamycin for 3 days duration and did not improve. He reports his shakes were getting worse and worse and he basically had to sit up all night because of this. He therefore decided to come back to hospital. He reports that he does have some cough which is worsening with time. He states the color of his sputum is white. Denies diarrhea. He states he did have some loose bowel movements initially when he first got IV clindamycin in the emergency room. But this has resolved since then. He reports of mild urinary burning. denies dysuria. Patient is on immunosuppressant therapy due to his renal transplant status. He will also reports of recent wound surgery with his cyber defense incident responder Dr. Matos. On review of medical records, he did have surgical excision of left foot abscess on August 19, 2016. He is also diabetic. Review of Systems Except as stated in HPI: all other systems reviewed are Neg Past Family Social History Past Medical History Hypertension Diabetes Atrial fibrillation Peripheral arterial disease Carotid artery diseasestatus post bilateral CEA Renal transplant [id number] COPD CHF Hyperlipidemia Anxiety Hepatitis C Neuropathy Arthritis Past Surgical History Renal transplant on the [id number] Left foot abscess [id number] Bilateral CEA Ureteral stents placement Right knee arthroscopy Left AV fistula placement Reported Medications Patient's medications list on EMRreviewed. Allergies: Coded Allergies: No Known Allergies (Unverified , 10/12/16) Family History brother and sister- hypoglycemic, dm Social History quit smoking 14yrs ago no etoh or drugs lives with , drives occasionally Physical Exam Vital Signs Vital Signs Date Time Temp Pulse Resp B/P Pulse Ox O2 Delivery O2 Flow Rate FiO2 6/14/17 01:44 96.8 10/16/16 23:42 98.4 72 16 169/77 90 10/16/16 20:30 99.0 75 18 174/79 98 10/16/16 18:20 99.6 78 20 190/84 98 10/16/16 18:12 98 10/16/16 18:12 98 Room Air 10/16/16 16:48 98.0 76 18 188/84 96 Room Air Physical Exam GENERAL: This is a well-nourished, well-developed patient, in quite a bit of distress at the time of my exam from severe uncontrollable chills. SKIN: No rashes, ecchymoses or lesions. Cool and dry. HEAD: Atraumatic. Normocephalic. No temporal or scalp tenderness. EYES: No scleral icterus. No injection or drainage. ENT: Nose without bleeding, purulent drainage or septal hematoma. Airway patent. NECK: Trachea midline. No JVD Supple, nontender, no meningeal signs. CARDIOVASCULAR: Regular rate and rhythm without gallops, or rubs. Systolic murmur at aortic area RESPIRATORY: Clear to auscultation. Breath sounds equal bilaterally. No wheezes , rales, or rhonchi. GASTROINTESTINAL: Abdomen soft, non-tender, nondistended No guarding. MUSCULOSKELETAL: Extremities without clubbing, cyanosis, or edema. No calf tenderness NEUROLOGICAL: Awake and alert. Motor and sensory grossly within normal limits. Normal speech. Laboratory Laboratory Tests Test 10/16/16 10/16/16 10/16/16 17:50 18:00 23:35 White Blood Count 6.8 Red Blood Count 4.42 Hemoglobin 12.2 Hematocrit 37.7 Mean Corpuscular Volume 85.2 Mean Corpuscular Hemoglobin 27.7 Mean Corpuscular Hemoglobin 32.5 Concent Red Cell Distribution Width 15.0 Platelet Count 136 Mean Platelet Volume 9.2 Neutrophils (%) (Auto) 75.7 Lymphocytes (%) (Auto) 11.5 Monocytes (%) (Auto) 12.5 Eosinophils (%) (Auto) 0.1 Basophils (%) (Auto) 0.2 Neutrophils # (Auto) 5.2 Lymphocytes # (Auto) 0.8 Monocytes # (Auto) 0.9 Eosinophils # (Auto) 0.0 Basophils # (Auto) 0.0 CBC Comment DIFF FINAL Differential Comment Prothrombin Time 11.9 Prothromb Time International 1.1 Ratio Activated Partial 34.2 Thromboplast Time Sodium Level 134 Potassium Level 5.2 Chloride Level 105 Carbon Dioxide Level 16.9 Anion Gap 12 Blood Urea Nitrogen 75 Creatinine 2.43 Estimat Glomerular Filtration 27 Rate Random Glucose 183 Lactic Acid Level 0.7 Calcium Level 9.4 Magnesium Level 2.2 Total Bilirubin 1.2 Aspartate Amino Transf 16 (AST/SGOT) Alanine Aminotransferase 32 (ALT/SGPT) Alkaline Phosphatase 116 Total Creatine Kinase 75 62 Troponin I 0.03 0.03 B-Type Natriuretic Peptide 2215 Total Protein 6.9 Albumin 3.3 Urine Color YELLOW Urine Turbidity CLEAR Urine pH 5.5 Urine Specific [place] 1.019 Urine Protein TRACE Urine Glucose (UA) NEG Urine Ketones NEG Urine Occult Blood NEG Urine Nitrite NEG Urine Bilirubin NEG Urine Urobilinogen LESS THAN 2.0 Urine Leukocyte Esterase NEG Urine RBC LESS THAN 1 Urine Mucus FEW Microscopic Urinalysis Comment CULT NOT INDICATED Date/Time Procedure Status Source Growth 10/16/16 17:55 Aerobic Blood Culture Received Blood Peripheral Pending 10/16/16 17:55 Anaerobic Blood Culture Received Blood Peripheral Pending 10/16/16 17:50 Influenza Types A,B Antigen (ALVARO) - Final Complete Nasal Washing NEGATIVE FOR FLU A AND B ANTIGEN.... Result Diagram: 10/16/16 1750 10/16/16 1750 Imaging Last 48 hours Impressions Chest X-Ray 10/16/16 1730 Signed Impressions: Service Date/Time: Sunday, October 16, 2016 17:54 - CONCLUSION: No evidence of acute cardiopulmonary disease. Derrek Arriaza MD Assessment and Plan Assessment and Plan Impression: Patient with uncontrollable chills on immunosuppressant therapy. Fever of 101 at home. Possible early sepsis. Failed outpatient therapy with clindamycin Systolic murmur at aortic areaunsure whether this is new. Given that patient has about 4 days history of chills, fever, being on immunosuppressant therapy, would need to rule out endocarditis. Elevated BNPsomewhat chronic. Watch for fluid overload. Fever of 4 days' duration Plan: We'll follow blood culture, urine culture results. Chest x-ray and EKGs personally reviewed by me. No evidence of infiltrate/ pneumothorax/pleural effusions. Will cover broad-spectrum with vancomycin, creatinine clearance and levels. Zosyn 4.5 g IV every 6 hours. Would also consult infectious disease specialist for further opinion as patient is a renal transplant patient. Obtain 2-D echo to further evaluate valvular structures and looking for vegetations. At present, patient's left foot examination did not reveal any discharge/ erythema/warmth suggestive of infection. Further imaging studies and workup per infectious disease specialist. He had left foot abscess surgically drained on August 19, 2016 by cyber defense incident responder. Monitor fingersticks. Hold oral hypoglycemics medications. Resume rest of his home medications. DVT prophylaxiswith heparin. GI prophylaxis on pantoprazole. change to full admit as pt is immunocompromised, likely septic though not able to mount fever, with possible new murmur Discussed Condition With patient, ER , patient's nurse Vadim Vincent MD Oct 17, 2016 02:07
[2016-10-17] MEDS: HYDROmorphone HCL PF 1 MG/ML VIAL IV PUSH PRN ×4 (02:18→20:39)
[2016-10-17] MEDS ORDERED: TACROLIMUS 1 MG CAP PO SCH (02:30)
[2016-10-17] MEDS ORDERED: RESP: ALBUTEROL 2.5 MG/IPRATROPIUM 0.5 MG NEB (PRN) NEB (02:30)
[2016-10-17] MEDS ORDERED: GLUCAGON 1 MG/ML VIAL OTHER PRN (02:30)
[2016-10-17] MEDS ORDERED: DEXTROSE 50% IN WATER 50 ML VIAL(D50) IV PRN (02:30)
[2016-10-17] MEDS: RESP: ALBUTEROL 2.5 MG/IPRATROPIUM 0.5 MG NEB (SCH) NEB ×4 (03:25→19:45)
[2016-10-17 06:58] LABS: BASOPHIL % 0.4 % (0.0-2.0); EOSINOPHIL % 0.2 % (0.0-4.0); HEMATOCRIT 37.1 % (39.0-51.0); HEMO FLAGS DIFF FINAL; LYMPH % 8.5 % (9.0-44.0); LYMPHOCYTE # 0.6 TH/MM3 (1.0-4.8); MEAN CELL VOLUME 84.9 FL (80.0-100.0); MONO % 12.2 % (0.0-8.0); NEUT % 78.7 % (16.0-70.0); PLATELET COUNT 124 TH/MM3 (150-450); RED BLOOD COUNT 4.37 MIL/MM3 (4.50-5.90); RED CELL DISTRIBUTION WIDTH 15.2 % (11.6-17.2); WHITE BLOOD COUNT 7.6 TH/MM3 (4.0-11.0)
[2016-10-17] MEDS: INSULIN ASPART SUPPLEMENTAL SCALE SQ SCH ×4 (07:00→22:05)
--- NOTE | 2016-10-17 07:14 | EKG ---
Date Performed: 10/16/2016 Time Performed: 17:30:23 PTAGE: 66 years EKG: Sinus rhythm BORDERLINE LEFT AXIS DEVIATION NONSPECIFIC ST & T-WAVE ABNORMALITY BORDERLINE ECG NO SIGNIFICANT JEWELS NGE FROM PRIOR ELECTROCARDIOGRAM. PREVIOUS TRACING : 10/13/2016 00.12 DOCTOR: Giovanni Carr Interpretating Date/Time 10/17/2016 07:13:50
[2016-10-17 07:23] LABS: ALT (GPT) 29 U/L (12-78); ANION GAP 11 MEQ/L (5-15); AST (GOT) 13 U/L (15-37); BICARBONATE 19.1 MEQ/L (21.0-32.0); BLOOD UREA NITROGEN 70 MG/DL (7-18); CHLORIDE 101 MEQ/L (98-107); GLOMERULAR FILTRATION RATE 25 ML/MIN (>89); POTASSIUM 5.4 MEQ/L (3.5-5.1); SODIUM (NA) 131 MEQ/L (136-145)
[2016-10-17 07:27] LABS: ALKALINE PHOSPHATASE 105 U/L (45-117); TOTAL BILIRUBIN ADULT 1.7 MG/DL (0.2-1.0)
[2016-10-17 07:36] LABS: CREATINE KINASE 61 U/L (39-308)
--- NOTE | 2016-10-17 07:58 | EKG ---
Date Performed: 10/17/2016 Time Performed: 00:17:41 PTAGE: 66 years EKG: BASELINE ARTIFACT PRESENT. Sinus rhythm MARKED LEFT AXIS DEVIATION Nonspecific ST-T wave changes ABNORMAL ECG NO SIGNIFICANT CHANGE FROM DWIGHT OR ELECTROCARDIOGRAM. PREVIOUS TRACING : 10/16/2016 17.30 DOCTOR: Giovanni Carr Interpretating Date/Time 10/17/2016 07:56:49
[2016-10-17] MEDS: ISOSORBIDE MONONITRATE 30 MG TAB PO SCH (08:30)
[2016-10-17] MEDS: PREGABALIN 25 MG CAP PO SCH ×3 (08:30→17:44)
[2016-10-17] MEDS: cloNIDine HCL 0.1 MG TAB PO SCH (08:30)
[2016-10-17] MEDS: DOCUSATE SODIUM 100 MG CAP PO SCH ×2 (08:30→21:00)
[2016-10-17] MEDS: predniSONE 5 MG TAB PO SCH (08:30)
[2016-10-17] MEDS: FUROSEMIDE 20 MG TAB PO SCH (08:30)
[2016-10-17] MEDS: SODIUM BICARBONATE 650 MG TAB PO SCH ×2 (08:30→17:44)
[2016-10-17] MEDS: LABETALOL HCL 200 MG TAB PO SCH ×2 (08:30→22:07)
[2016-10-17] MEDS: SODIUM CHLORIDE 0.9% FLUSH 10 ML FLUSH IV FLUSH SCH ×2 (08:30→22:06)
[2016-10-17] MEDS ORDERED: MYCOPHENOLATE MOFETIL 500 MG TAB PO SCH (09:00)
[2016-10-17] MEDS ORDERED: VANCOMYCIN 1,000 MG/NS 250 ML IV ONE ×2 (10:00)
--- NOTE | 2016-10-17 10:25 | HHI.PR ---
Subjective Remarks Follow-up for fevers and chills Patient stated that he had a horrible night last night. He stated that he was not given his medication properly. He stated that everything was fixed this morning. Patient also asked to see his core blower Dr. Matos due to left toe swelling. He stated that this is new. Patient has no other complaints. Objective Vitals Vital Signs Date Time Temp Pulse Resp B/P Pulse Ox O2 Delivery O2 Flow Rate FiO2 10/17/16 10:03 93 Nasal Cannula 2.00 10/17/16 09:23 175/76 10/17/16 07:18 99.0 78 18 190/87 94 10/17/16 04:25 98.0 70 18 187/84 92 10/17/16 03:28 99 Nasal Cannula 2.00 10/17/16 01:44 96.8 10/16/16 23:42 98.4 72 16 169/77 90 10/16/16 20:30 99.0 75 18 174/79 98 10/16/16 18:20 99.6 78 20 190/84 98 10/16/16 18:12 98 10/16/16 18:12 98 Room Air 10/16/16 16:48 98.0 76 18 188/84 96 Room Air I/O 10/16/16 10/16/16 10/16/16 10/17/16 10/17/16 10/17/16 07:00 15:00 23:00 07:00 15:00 23:00 Intake Total 400 ml Balance 400 ml Intake Oral 400 ml Result Diagram: 10/17/16 0635 10/17/16 0632 Imaging Last Impressions Chest X-Ray 10/16/16 1730 Signed Impressions: Service Date/Time: Sunday, October 16, 2016 17:54 - CONCLUSION: No evidence of acute cardiopulmonary disease. Derrek Arriaza MD Objective Remarks GENERAL: This is a well-nourished, well-developed patient in NAD NECK: Trachea midline. No JVD Supple, nontender, no meningeal signs. CARDIOVASCULAR: Regular rate and rhythm without gallops, or rubs. Systolic murmur at aortic area RESPIRATORY: Clear to auscultation. Breath sounds equal bilaterally. No wheezes , rales, or rhonchi. GASTROINTESTINAL: Abdomen soft, non-tender, nondistended No guarding. MUSCULOSKELETAL: left big toe with swelling and flatulence with palpitation. Medications and IVs Current Medications Sodium Chloride 2 ml 2 ml UNSCH PRN IVF FLUSH AFTER USING IV ACCESS; Start at 17:30; Stop 10/17/16 at 02:00; Status DC Sodium Chloride (NS 500 ml Inj) 500 ml @ 500 mls/hr ONCE ONCE IV Last administered on 10/16/16 17:30; Start 10/16/16 at 17:30; Stop 10/16/16 at 18:29 ; Status DC Morphine Sulfate (Morphine Inj) 4 mg ONCE ONCE IV PUSH Last administered on 18:00; Start 10/16/16 at 18:00; Stop 10/16/16 at 18:01; Status DC Ondansetron HCl (Zofran Inj) 4 mg ONCE ONCE IV PUSH Last administered on 18:00; Start 10/16/16 at 18:00; Stop 10/16/16 at 18:01; Status DC Tacrolimus (Prograf) 3 mg ONCE ONCE PO Last administered on 10/16/16 18:30; Start 10/16/16 at 18:15; Stop 10/16/16 at 18:16; Status DC Acetaminophen (Tylenol) 1,000 mg ONCE ONCE PO Last administered on 10/16/16 18:45; Start 10/16/16 at 18:45; Stop 10/16/16 at 18:46; Status DC Mycophenolate Mofetil 500 mg 500 mg ONCE PO Last administered on 10/16/16 20: 32; Start 10/16/16 at 18:45 Piperacillin Sod/ Tazobactam Sod 50 ml @ 100 mls/hr ONCE ONCE IV Last administered on 10/16/16 18:45; Start 10/16/16 at 18:45; Stop 10/16/16 at 19:14 ; Status DC Vancomycin HCl/ Sodium Chloride (Vancomycin Inj/ NS 250 ml Inj) 250 ml @ 250 mls/hr ONCE ONCE IV Last administered on 10/16/16 18:45; Start 10/16/16 at 18 :45; Stop 10/16/16 at 19:44; Status DC Hydromorphone HCl (Dilaudid Pf Inj) 1 mg ONCE ONCE IV PUSH Last administered on 10/16/16 19:15; Start 10/16/16 at 19:15; Stop 10/16/16 at 19:16; Status DC Sodium Chloride (NS Flush) 2 ml UNSCH PRN IV FLUSH FLUSH AFTER USING IV ACCESS ; Start 10/16/16 at 19:30 Sodium Chloride (NS Flush) 2 ml BID IV FLUSH Last administered on 10/17/16 08: 30; Start 10/16/16 at 21:00 Naloxone HCl (Narcan Inj) 0.4 mg UNSCH PRN IV SEE LABEL COMMENTS; Start at 19:30 Hydromorphone HCl 1 mg 1 mg Q4H PRN IV PUSH pain >5 Last administered on 09:43; Start 10/17/16 at 02:00 Piperacillin Sod/ Tazobactam Sod 100 ml @ 200 mls/hr Q6H IV Last administered on 10/17/16 08:30; Start 10/17/16 at 02:00 Pharmacy Profile Note (Vancomycin Consult Pharmacy) 0 ml @ 0 mls/hr UNSCH OTHER ; Start 10/17/16 at 02:00 Clonidine (Catapres) 0.1 mg DAILY PO Last administered on 10/17/16 08:30; Start 10/17/16 at 09:00 Docusate Sodium (Colace) 100 mg BID PO Last administered on 10/17/16 08:30; Start 10/17/16 at 09:00 Furosemide (Lasix) 20 mg DAILY PO Last administered on 10/17/16 08:30; Start 10/17/16 at 09:00 Isosorbide Mononitrate (Imdur) 30 mg DAILY@07 PO Last administered on 08:30; Start 10/17/16 at 07:00 Labetalol HCl (Trandate) 200 mg BID PO Last administered on 10/17/16 08:30; Start 10/17/16 at 09:00 Lorazepam (Ativan) 3 mg HS PO ; Start 10/17/16 at 21:00 Mycophenolate Mofetil (Cellcept) 500 mg BID PO ; Start 10/17/16 at 09:00 Nifedipine (Procardia Xl) 30 mg HS PO ; Start 10/17/16 at 21:00 Prednisone (Deltasone) 5 mg DAILY PO Last administered on 10/17/16 08:30; Start 10/17/16 at 09:00 Pregabalin (Lyrica) 25 mg TID PO Last administered on 10/17/16 08:30; Start at 09:00 Sodium Bicarbonate (Sodium Bicarbonate) 650 mg BIDPC PO Last administered on 08:30; Start 10/17/16 at 09:00 Tacrolimus (Prograf) 3 mg Q12H PO Last administered on 10/17/16 02:46; Start 10/17/16 at 02:30 Albuterol/ Ipratropium (Duoneb Neb) 1 ampule Q6HR NEB NEB Last administered on 10/17/16 10:03; Start 10/17/16 at 04:00 Albuterol/ Ipratropium (Duoneb Neb) 1 ampule Q2HR NEB PRN NEB wheezing; Start 10/17/16 at 02:30 Dextrose (D50w (Vial) Inj) 50 ml UNSCH PRN IV HYPOGLYCEMIA-SEE COMMENTS; Start 10/17/16 at 02:30 Glucagon (Glucagon Inj) 1 mg UNSCH PRN OTHER HYPOGLYCEMIA-SEE COMMENTS; Start 10/17/16 at 02:30 Insulin Aspart (NovoLOG SUPPLEMENTAL SCALE) 1 ACHS SLIDING SCALE SQ ; Start at 07:00 Heparin Sodium (Porcine) 5000 units 5,000 units Q8HR SQ ; Start 10/17/16 at 14: 00 Vancomycin HCl/ Sodium Chloride (Vancomycin Inj/ NS 250 ml Inj) 250 ml @ 250 mls/hr ONCE ONCE IV Last administered on 10/17/16 09:43; Start 10/17/16 at 10 :00; Stop 10/17/16 at 10:59 A/P Assessment and Plan Left toe infection -Most likely fevers and chills are due to left left toe infection. Pending blood cultures and urine cultures. -Patient is immunocompromised due to being on immunosuppressant. He felt outpatient therapy with clindamycin. -Patient currently on vancomycin and Zosyn. We'll continue with current regimen. -Most likely he will need an I&D. Will consult his core blower Dr. Matos. He may also need an MRI will wait for recommendations per core blower. -Infectious disease also consulted. Elevated BNP -At the moment no signs of volume overloaded. Patient is on Lasix. -He stated that he has not urinated as much recently. 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 Status post liver transplant -Dr. Dias consulted. -His medication was resumed. Hyperkalemia -Creatinine and GFR has been stable. -Patient stated that he is on Kayexalate at home when necessary for this. Will give patient a dose of Kayexalate and monitor his potassium. -Continue with telemetry. New heart murmur -Echo was ordered. Pending Echo. May be due to flow murmur. DVT prophylaxiswith heparin. GI prophylaxis on pantoprazole. Discharge Planning Patient failed outpatient oral antibiotic therapy and requires IV antibiotics. He is immunocompromised due to renal transplant so will need to be cautious with treatment. Priscilla Lee MD Oct 17, 2016 10:25
[2016-10-17] MEDS ORDERED: SODIUM POLYSTYRENE SULFONATE SUSP 15 GM/60 ML CUP PO ONE (10:30)
[2016-10-17] MEDS: HEPARIN SODIUM - SQ 10,000 UNITS/ML VIAL SQ SCH ×2 (12:55→22:08)
--- NOTE | 2016-10-17 13:42 | PD.ID.CON ---
History of Present Illness Service ID Consult Requested By Dr Vincent Reason for Consult fever Primary Care Physician Kristen Gordon Diagnoses: History of Present Illness 66 yo male with sp renal allograft chronic kidney disease status post kidney transplant on immune suppressants, congestive heart failure, COPD. sp L foot surgery by Dr Sánchez for DFI 2/2 MSSA , no osteo He healed the incision ( sp Incision and drainage of abscess third interspace left foot 08/[address] Sánchez) Pt developped non productive cough, fever chills a weekm ago, seen in ER, had fever 100.5 on 10/13 No fever on todays' preesentation he was given a dose of IV clindamuc=in in ER then switched to oral clinda reports no improvement and presents with fevers and chills, cough and chest pain he also noted swelling tenderness and small draining wound of L hallux His w/u showed negative influenza test, neg blood clx x2 @ 1 day and negative CXR His BNP > 2K Review of Systems Except as stated in HPI: all other systems reviewed are Neg Past Family Social History Allergies: Coded Allergies: No Known Allergies (Unverified , 10/12/16) Past Medical History COPD Congestive heart failure End-stage renal disease status post transplantation Anxiety Hepatitis C Diabetes Dyslipidemia Neuropathy Arthritis Past Surgical History Renal transplant on the right Ureteral stents Left AV fistula Bilateral carotid surgery Incision and drainage of abscess third interspace left foot 08/2016 Active Ordered Medications Medications where reviewed in EMR Antibiotics Include: zosyn vanco x 1 Family History Non-Contributory. Social History remote tobacco no ETOH no drugs Physical Exam Vital Signs Vital Signs Date Time Temp Pulse Resp B/P Pulse Ox O2 Delivery O2 Flow Rate FiO2 10/17/16 11:30 97.5 76 18 176/77 95 10/17/16 10:03 93 Nasal Cannula 2.00 10/17/16 09:23 175/76 10/17/16 07:18 99.0 78 18 190/87 94 10/17/16 04:25 98.0 70 18 187/84 92 10/17/16 03:28 99 Nasal Cannula 2.00 10/17/16 01:44 96.8 10/16/16 23:42 98.4 72 16 169/77 90 10/16/16 20:30 99.0 75 18 174/79 98 6/13/17 18:20 99.6 78 20 190/84 98 10/16/16 18:12 98 10/16/16 18:12 98 Room Air 10/16/16 16:48 98.0 76 18 188/84 96 Room Air Physical Exam CONSTITUTIONAL/GENERAL: This is an adequately nourished patient, in no apparent distress. TUBES/LINES/DRAINS: LUE AV fistula with good thrill, no e/o infx SKIN: No jaundice, rashes, or lesions. Skin temperature appropriate. Not diaphoretic. HEAD: Atraumatic. Normocephalic. EYES: Pupils equal and round and reactive. Extraocular motions intact. No scleral icterus. No injection or drainage. Fundi not examined. ENT: Hearing grossly normal. Nose without bleeding or purulent drainage. Oral mucosae moist without visible erythema, exudates, masses, or lesions. NECK: Trachea midline. Supple, nontender. CARDIOVASCULAR: Regular rate and rhythm without murmurs, gallops, or rubs. No JVD. Peripheral pulses symmetric. RESPIRATORY/CHEST: Symmetric, unlabored respirations. Clear to auscultation. Breath sounds equal bilaterally. No wheezes, rales, or rhonchi. GASTROINTESTINAL: Abdomen soft, non-tender, nondistended. No hepato-splenomegaly , or palpable masses. No guarding. Bowel sounds present. GENITOURINARY: Without palpable bladder distension. well healed scar in RLQ renal allograft in RLQ, not tender to palpation MUSCULOSKELETAL: Extremities without clubbing, cyanosis, or edema R foot L foot with healed incision in 3rd inter digital space Hallux is edematous erythemaous, sausage shape and tender to aplpatio ditrophic thickenned nal msmall openinng draining miniscul amount of bloody pus, odorless + palpable L inguinal LN . No joint tenderness or effusion noted. No calf tenderness. No mottling or clubbing. LYMPHATICS: No palpable cervical or supraclavicular adenopathy. NEUROLOGICAL: Awake and alert. Motor and sensory grossly within normal limits. Follows commands. Clear speech Moves all extremities. PSYCHIATRIC: No obvious anxiety/depression. no apparent hallucinations or other psychotic thought process. Laboratory Laboratory Tests Test 10/16/16 10/16/16 10/16/16 10/17/16 17:50 18:00 23:35 06:32 White Blood Count 6.8 Red Blood Count 4.42 Hemoglobin 12.2 Hematocrit 37.7 Mean Corpuscular Volume 85.2 Mean Corpuscular Hemoglobin 27.7 Mean Corpuscular Hemoglobin 32.5 Concent Red Cell Distribution Width 15.0 Platelet Count 136 Mean Platelet Volume 9.2 Neutrophils (%) (Auto) 75.7 Lymphocytes (%) (Auto) 11.5 Monocytes (%) (Auto) 12.5 Eosinophils (%) (Auto) 0.1 Basophils (%) (Auto) 0.2 Neutrophils # (Auto) 5.2 Lymphocytes # (Auto) 0.8 Monocytes # (Auto) 0.9 Eosinophils # (Auto) 0.0 Basophils # (Auto) 0.0 CBC Comment DIFF FINAL Differential Comment Prothrombin Time 11.9 Prothromb Time International 1.1 Ratio Activated Partial 34.2 Thromboplast Time Sodium Level 134 131 Potassium Level 5.2 5.4 Chloride Level 105 101 Carbon Dioxide Level 16.9 19.1 Anion Gap 12 11 Blood Urea Nitrogen 75 70 Creatinine 2.43 2.62 Estimat Glomerular Filtration 27 25 Rate Random Glucose 183 161 Lactic Acid Level 0.7 Calcium Level 9.4 9.5 Magnesium Level 2.2 Total Bilirubin 1.2 1.7 Aspartate Amino Transf 16 13 (AST/SGOT) Alanine Aminotransferase 32 29 (ALT/SGPT) Alkaline Phosphatase 116 105 Total Creatine Kinase 75 62 61 Troponin I 0.03 0.03 0.04 B-Type Natriuretic Peptide 2215 Total Protein 6.9 6.8 Albumin 3.3 3.2 Urine Color YELLOW Urine Turbidity CLEAR Urine pH 5.5 Urine Specific Lynn 1.019 Urine Protein TRACE Urine Glucose (UA) NEG Urine Ketones NEG Urine Occult Blood NEG Urine Nitrite NEG Urine Bilirubin NEG Urine Urobilinogen LESS THAN 2.0 Urine Leukocyte Esterase NEG Urine RBC LESS THAN 1 Urine Mucus FEW Microscopic Urinalysis Comment CULT NOT INDICATED Test 10/17/16 06:35 White Blood Count 7.6 Red Blood Count 4.37 Hemoglobin 12.3 Hematocrit 37.1 Mean Corpuscular Volume 84.9 Mean Corpuscular Hemoglobin 28.0 Mean Corpuscular Hemoglobin 33.0 Concent Red Cell Distribution Width 15.2 Platelet Count 124 Mean Platelet Volume 8.5 Neutrophils (%) (Auto) 78.7 Lymphocytes (%) (Auto) 8.5 Monocytes (%) (Auto) 12.2 Eosinophils (%) (Auto) 0.2 Basophils (%) (Auto) 0.4 Neutrophils # (Auto) 6.0 Lymphocytes # (Auto) 0.6 Monocytes # (Auto) 0.9 Eosinophils # (Auto) 0.0 Basophils # (Auto) 0.0 CBC Comment DIFF FINAL Differential Comment Date/Time Procedure Status Source Growth 10/16/16 17:55 Aerobic Blood Culture - Preliminary Resulted Blood Peripheral NO GROWTH IN 1 DAY 10/16/16 17:55 Anaerobic Blood Culture - Preliminary Resulted Blood Peripheral NO GROWTH IN 1 DAY 10/16/16 17:50 Influenza Types A,B Antigen (ALVARO) - Final Complete Nasal Washing NEGATIVE FOR FLU A AND B ANTIGEN.... Result Diagram: 10/17/16 0635 10/17/16 0632 Imaging Last Impressions Chest X-Ray 10/16/16 1730 Signed Impressions: Service Date/Time: Sunday, October 16, 2016 17:54 - CONCLUSION: No evidence of acute cardiopulmonary disease. Derrek Arriaza MD Assessment and Plan Assessment and Plan Febrile illness in immunosuppressed pt (kidney transplant) - going on x 1 week - aw dry cough, neg CXR - neg blood, urine clx CHF exacebrbation - 2 D echo with 35% EF as of 08/20 ? L hallux osteo - lan Sánchez - he is going to see the pt cough - serial CXRs improved and showed no infiltrate on today's film FU blood clx - cont vanco - change to cefepime - dc zosyn - probaly will need MRI of L hallux/foot Discussed Condition With Dr Shawna Centeno,Nancy Alexis MD Oct 17, 2016 13:42
--- NOTE | 2016-10-17 14:27 | EKG ---
Date Performed: 10/17/2016 Time Performed: 07:15:01 PTAGE: 66 years EKG: BASELINE ARTIFACT PRESENT. Sinus rhythm BORDERLINE LEFT AXIS DEVIATION Nonspecific ST T-wave changes NO SIGNIFICANT CHANGE FROM PRIOR ELECTR OCARDIOGRAM. PREVIOUS TRACING : 10/17/2016 00.17 DOCTOR: Giovanni Carr Interpretating Date/Time 10/17/2016 14:25:40
[2016-10-17] MEDS: CEFEPIME INJ 2,000 MG in SODIUM CHLORIDE 0.9% INJ 100 ML IV SCH (14:40)
--- NOTE | 2016-10-17 16:17 | PD.POD.CON ---
Patient Intake Chief Complaint Infected left hallux toenail Consult Requested by Dr. MATHEWS Reason for Consult Evaluation of possible left hallux infection Primary Care Physician Kristen Gordon History of Present Illness Amputation is a 66-year-old male who I was following [facility] for advanced wound healing for an abscess of the left lateral foot. This abscess went on to heal after incision and drainage and local wound care. Last Lorenzo patient developed chills and fever and redness of the left hallux. He was placed on oral clindamycin and discharged home but returned yesterday not feeling very well. Coded Allergies: No Known Allergies (Unverified , 10/12/16) Preferred Language to Discuss: Hungarian Barriers to Learning: None Teaching Method: Discussion Vital Signs Date Time Temp Pulse Resp B/P Pulse Ox O2 Delivery O2 Flow Rate FiO2 10/17/16 11:30 97.5 76 18 176/77 95 10/17/16 10:03 93 Nasal Cannula 2.00 10/17/16 09:23 175/76 10/17/16 08:00 78 10/17/16 07:18 99.0 78 18 190/87 94 10/17/16 04:25 98.0 70 18 187/84 92 10/17/16 03:28 99 Nasal Cannula 2.00 10/17/16 01:44 96.8 10/16/16 23:42 98.4 72 16 169/77 90 10/16/16 20:30 99.0 75 18 174/79 98 10/16/16 18:20 99.6 78 20 190/84 98 10/16/16 18:12 98 10/16/16 18:12 98 Room Air 10/16/16 16:48 98.0 76 18 188/84 96 Room Air Pain scale used: 0-10 numeric scale Pain score: 0 Medications Current Medications Sodium Chloride 2 ml 2 ml UNSCH PRN IVF FLUSH AFTER USING IV ACCESS; Start at 17:30; Stop 10/17/16 at 02:00; Status DC Sodium Chloride (NS 500 ml Inj) 500 ml @ 500 mls/hr ONCE ONCE IV Last administered on 10/16/16t 17:30; Start 10/16/16 at 17:30; Stop 10/16/16 at 18:29 ; Status DC Morphine Sulfate (Morphine Inj) 4 mg ONCE ONCE IV PUSH Last administered on 18:00; Start 10/16/16 at 18:00; Stop 10/16/16 at 18:01; Status DC Ondansetron HCl (Zofran Inj) 4 mg ONCE ONCE IV PUSH Last administered on 18:00; Start 10/16/16 at 18:00; Stop 10/16/16 at 18:01; Status DC Tacrolimus (Prograf) 3 mg ONCE ONCE PO Last administered on 10/16/16 18:30; Start 10/16/16 at 18:15; Stop 10/16/16 at 18:16; Status DC Acetaminophen (Tylenol) 1,000 mg ONCE ONCE PO Last administered on 10/16/16 18:45; Start 10/16/16 at 18:45; Stop 10/16/16 at 18:46; Status DC Mycophenolate Mofetil 500 mg 500 mg ONCE PO Last administered on 10/16/16 20: 32; Start 10/16/16 at 18:45; Stop 10/17/16 at 10:44; Status DC Piperacillin Sod/ Tazobactam Sod 50 ml @ 100 mls/hr ONCE ONCE IV Last administered on 10/16/16 18:45; Start 10/16/16 at 18:45; Stop 10/17/16 at 13:44 ; Status DC Vancomycin HCl/ Sodium Chloride (Vancomycin Inj/ NS 250 ml Inj) 250 ml @ 250 mls/hr ONCE ONCE IV Last administered on 10/16/16 18:45; Start 10/16/16 at 18 :45; Stop 10/16/16 at 19:44; Status DC Hydromorphone HCl (Dilaudid Pf Inj) 1 mg ONCE ONCE IV PUSH Last administered on 10/16/16 19:15; Start 10/16/16 at 19:15; Stop 10/16/16 at 19:16; Status DC Sodium Chloride (NS Flush) 2 ml UNSCH PRN IV FLUSH FLUSH AFTER USING IV ACCESS ; Start 10/16/16 at 19:30 Sodium Chloride (NS Flush) 2 ml BID IV FLUSH Last administered on 10/17/16 08: 30; Start 10/16/16 at 21:00 Naloxone HCl (Narcan Inj) 0.4 mg UNSCH PRN IV SEE LABEL COMMENTS; Start at 19:30 Hydromorphone HCl 1 mg 1 mg Q4H PRN IV PUSH pain >5 Last administered on 14:41; Start 10/17/16 at 02:00 Piperacillin Sod/ Tazobactam Sod 100 ml @ 200 mls/hr Q6H IV Last administered on 10/17/16 12:56; Start 10/17/16 at 02:00; Stop 10/17/16 at 13:44; Status DC Pharmacy Profile Note (Vancomycin Consult Pharmacy) 0 ml @ 0 mls/hr UNSCH OTHER ; Start 10/17/16 at 02:00 Clonidine (Catapres) 0.1 mg DAILY PO Last administered on 10/17/16 08:30; Start 10/17/16 at 09:00 Docusate Sodium (Colace) 100 mg BID PO Last administered on 10/17/16 08:30; Start 10/17/16 at 09:00 Furosemide (Lasix) 20 mg DAILY PO Last administered on 10/17/16 08:30; Start 10/17/16 at 09:00 Isosorbide Mononitrate (Imdur) 30 mg DAILY@07 PO Last administered on 08:30; Start 10/17/16 at 07:00 Labetalol HCl (Trandate) 200 mg BID PO Last administered on 10/17/16 08:30; Start 10/17/16 at 09:00 Lorazepam (Ativan) 3 mg HS PO ; Start 10/17/16 at 21:00 Mycophenolate Mofetil (Cellcept) 500 mg BID PO Last administered on 10/17/16 08:30; Start 10/17/16 at 09:00; Stop 10/17/16 at 16:03; Status DC Nifedipine (Procardia Xl) 30 mg HS PO ; Start 10/17/16 at 21:00 Prednisone (Deltasone) 5 mg DAILY PO Last administered on 10/17/16 08:30; Start 10/17/16 at 09:00 Pregabalin (Lyrica) 25 mg TID PO Last administered on 10/17/16 12:55; Start at 09:00 Sodium Bicarbonate (Sodium Bicarbonate) 650 mg BIDPC PO Last administered on 08:30; Start 10/17/16 at 09:00 Tacrolimus (Prograf) 3 mg Q12H PO Last administered on 10/17/16 02:46; Start 10/17/16 at 02:30; Stop 10/17/16 at 10:41; Status DC Albuterol/ Ipratropium (Duoneb Neb) 1 ampule Q6HR NEB NEB Last administered on 10/17/16 15:18; Start 10/17/16 at 04:00 Albuterol/ Ipratropium (Duoneb Neb) 1 ampule Q2HR NEB PRN NEB wheezing; Start 10/17/16 at 02:30 Dextrose (D50w (Vial) Inj) 50 ml UNSCH PRN IV HYPOGLYCEMIA-SEE COMMENTS; Start 10/17/16 at 02:30 Glucagon (Glucagon Inj) 1 mg UNSCH PRN OTHER HYPOGLYCEMIA-SEE COMMENTS; Start 10/17/16 at 02:30 Insulin Aspart (NovoLOG SUPPLEMENTAL SCALE) 1 ACHS SLIDING SCALE SQ Last administered on 10/17/16 13:22; Start 10/17/16 at 07:00 Heparin Sodium (Porcine) 5000 units 5,000 units Q8HR SQ Last administered on 12:55; Start 10/17/16 at 14:00 Vancomycin HCl/ Sodium Chloride (Vancomycin Inj/ NS 250 ml Inj) 250 ml @ 250 mls/hr ONCE ONCE IV Last administered on 10/17/16 09:43; Start 10/17/16 at 10 :00; Stop 10/17/16 at 10:59; Status DC Sodium Polystyrene Sulfonate (Kayexalate Liq) 15 gm ONCE ONCE PO Last administered on 10/17/16 12:54; Start 10/17/16 at 10:30; Stop 10/17/16 at 10:31 ; Status DC Tacrolimus 3 mg 3 mg BID@06,18 PO ; Start 10/17/16 at 18:00 Cefepime HCl/ Sodium Chloride (Maxipime Inj/NS Inj) 100 ml @ 200 mls/hr Q24H IV Last administered on 10/17/16 14:40; Start 10/17/16 at 14:00 Mycophenolate Mofetil (Cellcept) 500 mg BID@06,18 PO ; Start 10/17/16 at 18:00 Past, Family & Social History Past Medical History HEENT: REPORTS HX OF: Other HEENT history (Sam's syndrom) Endocrine: REPORTS HX OF: Diabetes mellitus Respiratory: REPORTS HX OF: COPD Genitourinary: REPORTS HX OF: Kidney failure, Other history (kidney transplant) Infectious disease: REPORTS HX OF: Chickenpox, Other inf disease history ( shingles) Psychiatric: REPORTS HX OF: Anxiety Disabilities: REPORTS HX OF: Hearing deficit Past Surgical History Cardiovascular: REPORTS HX OF: Other cardiac surgery Genitourinary: REPORTS HX OF: Other surgery (kidney transplant, stents ) Musculoskeletal: REPORTS HX OF: Other musculoskeletal srg (rt knee) Social History Social history: Educational level: Graduated - [employer] Lives independently: Yes Marital status: almost 26 years 1 together and 2 total Occupation: [employer] , retired and disableed Substance Use Substance use: Denies use, Other Review of Systems Genitourinary: COMPLAINS OF: Renal disease Musculoskeletal: COMPLAINS OF: Deformaties Neurological: COMPLAINS OF: Numbness/tingling, Changes in sensation Exam-Podiatry Constitutional General appearance: comfortable Nutritional status: normal Orientation: alert and oriented x3 Dermatological Exam Skin Temp - Right: Within Normal Limits Skin Texture - Right: Within Normal Limits Skin Elasticity - Right: Within Normal Limits Skin Tugor - Right: Within Normal Limits Hair Growth - Right: Within Normal Limits Pigmentation - Right: Within Normal Limits Skin Temp - Left: Within Normal Limits Skin Texture - Left: Within Normal Limits Skin Elasticity - Left: Within Normal Limits Skin Tugor - Left: Within Normal Limits Hair Growth - Left: Within Normal Limits Pigmentation - Left: Within Normal Limits Ulcers: Location/Measurements The inner space abscess which was I&D it is completely healed on the left foot. No redness or swelling noted. Abnormal Nail Conditions Left hallux nail has some erythema at the proximal epionychium. No other signs of infection of the left hallux noted. Vascular/Lymphatic Exam R Dorsails Pedis: Palpable L Dorsails Pedis: Palpable R Posterior Tibial: Palpable L Posterior Tibial: Palpable Neurologic Exam Present on right: Tingling, Paraesthesia Present on left: Tingling, Paraesthesia Musculoskeletal Exam Details Patient has severe osteoarthritis with bunion deformity of the left hallux. The left hallux is always swollen. He has decreased range of motion at the MPJ. Muscle Strength Dorsiflexion (Right): Normal Plantarflexion (Right): Normal Inversion (Right): Normal Eversion (Right): Normal Digital (Right): Normal Dorsiflexion (Left): Normal Plantarflexion (Left): Normal Inversion (Left): Normal Eversion (Left): Normal Digital (Left): Normal Foot Range of Motion Dorsiflexion (Right): Normal Plantarflexion (Right): Normal Inversion (Right): Normal Eversion (Right): Normal Digital (Right): Normal Dorsiflexion (Left): Normal Plantarflexion (Left): Normal Inversion (Left): Normal Eversion (Left): Normal Digital (Left): Normal Wound Assessment Wound Information - Wound One Wound Location: left third interspace abscess(surgical Site) Lab and Radiology Results Laboratory Laboratory Tests Test 10/16/16 10/17/16 17:50 06:35 White Blood Count 6.8 TH/MM3 7.6 TH/MM3 Red Blood Count 4.42 MIL/MM3 4.37 MIL/MM3 Hemoglobin 12.2 GM/DL 12.3 GM/DL Hematocrit 37.7 % 37.1 % Mean Corpuscular Volume 85.2 FL 84.9 FL Mean Corpuscular Hemoglobin 27.7 PG 28.0 PG Mean Corpuscular Hemoglobin 32.5 % 33.0 % Concent Red Cell Distribution Width 15.0 % 15.2 % Platelet Count 136 TH/MM3 124 TH/MM3 Mean Platelet Volume 9.2 FL 8.5 FL Neutrophils (%) (Auto) 75.7 % 78.7 % Lymphocytes (%) (Auto) 11.5 % 8.5 % Monocytes (%) (Auto) 12.5 % 12.2 % Eosinophils (%) (Auto) 0.1 % 0.2 % Basophils (%) (Auto) 0.2 % 0.4 % Neutrophils # (Auto) 5.2 TH/MM3 6.0 TH/MM3 Lymphocytes # (Auto) 0.8 TH/MM3 0.6 TH/MM3 Monocytes # (Auto) 0.9 TH/MM3 0.9 TH/MM3 Eosinophils # (Auto) 0.0 TH/MM3 0.0 TH/MM3 Basophils # (Auto) 0.0 TH/MM3 0.0 TH/MM3 CBC Comment DIFF FINAL DIFF FINAL Differential Comment Laboratory Tests Test 10/16/16 10/16/16 10/17/16 17:50 23:35 06:32 Sodium Level 134 MEQ/L 131 MEQ/L Potassium Level 5.2 MEQ/L 5.4 MEQ/L Chloride Level 105 MEQ/L 101 MEQ/L Carbon Dioxide Level 16.9 MEQ/L 19.1 MEQ/L Anion Gap 12 MEQ/L 11 MEQ/L Blood Urea Nitrogen 75 MG/DL 70 MG/DL Creatinine 2.43 MG/DL 2.62 MG/DL Estimat Glomerular Filtration 27 ML/MIN 25 ML/MIN Rate Random Glucose 183 MG/DL 161 MG/DL Lactic Acid Level 0.7 mmol/L Calcium Level 9.4 MG/DL 9.5 MG/DL Magnesium Level 2.2 MG/DL Total Bilirubin 1.2 MG/DL 1.7 MG/DL Aspartate Amino Transf 16 U/L 13 U/L (AST/SGOT) Alanine Aminotransferase 32 U/L 29 U/L (ALT/SGPT) Alkaline Phosphatase 116 U/L 105 U/L Total Creatine Kinase 75 U/L 62 U/L 61 U/L Troponin I 0.03 NG/ML 0.03 NG/ML 0.04 NG/ML B-Type Natriuretic Peptide 2215 PG/ML Total Protein 6.9 GM/DL 6.8 GM/DL Albumin 3.3 GM/DL 3.2 GM/DL Microbiology Date/Time Procedure Status Source Growth 10/16/16 17:50 Aerobic Blood Culture - Preliminary Resulted Blood Peripheral NO GROWTH IN 1 DAY 10/16/16 17:50 Anaerobic Blood Culture - Preliminary Resulted Blood Peripheral NO GROWTH IN 1 DAY 10/16/16 17:50 Influenza Types A,B Antigen (ALVARO) - Final Complete Nasal Washing NEGATIVE FOR FLU A AND B ANTIGEN.... 10/16/16 17:55 Aerobic Blood Culture - Preliminary Resulted Blood Peripheral NO GROWTH IN 1 DAY 10/16/16 17:55 Anaerobic Blood Culture - Preliminary Resulted Blood Peripheral NO GROWTH IN 1 DAY Radiology Last Impressions Chest X-Ray 10/16/16 1730 Signed Impressions: Service Date/Time: Sunday, October 16, 2016 17:54 - CONCLUSION: No evidence of acute cardiopulmonary disease. Derrek Arriaza MD Assessment/Plan Problem List: (1) Osteoarthritis Status: Chronic (2) Paronychia of great toe of left foot Status: Acute Additional Plans & Procedures PLAN: I doubt that the hallux is the source of his chills and fever. Tomorrow morning I will do a total nail avulsion under local anesthetic and send the nail for culture and sensitivity. Patient could also be having a gout attack in the left hallux because of the osteal arthritis. Continue to follow. Discussed with Dr. Centeno. Problem Qualifiers (1) Osteoarthritis: Qualified Code: M19.072 - Osteoarthritis of left foot, unspecified osteoarthritis type Chung Matos DPM Oct 17, 2016 16:17
[2016-10-17] MEDS: TACROLIMUS 0.5 MG CAP PO SCH (17:43)
[2016-10-17] MEDS: MYCOPHENOLATE MOFETIL 500 MG TAB PO SCH (17:44)
--- NOTE | 2016-10-17 19:23 | PD.CONS ---
HPI Service Nephrology Consult Requested By Dr. Vincent Reason for Consult Kidney transplant Primary Care Physician Kristen Gordon History of Present Illness Patient is a 66-year-old the white male with history of diabetes, hypertension, cadaveric kidney transplant in July 2014 he has obstructive uropathy, and there was stenting percutaneous nephrostomy and he was doing better however he developed infection in the left foot which was treated by Dr. Albert. He is readmitted because of a toenail infection and he's not feeling well he feels tired and weak and lethargic he said he has chills as well his creatinine is 2.6 the now potassium 5.4 baseline creatinine ranges between 2.2-2.4. His BNP was greater than 2000 however chest x-ray did not show any evidence of fluid overload Review of Systems Constitutional: COMPLAINS OF: Fatigue, Chills Gastrointestinal: COMPLAINS OF: Constipation Neurologic: COMPLAINS OF: Abnormal gait Psychiatric: COMPLAINS OF: Anxiety Past Family Social History Allergies: Coded Allergies: No Known Allergies (Unverified , 10/12/16) Past Medical History Diabetes Hypertension ESRD Kidney transplant Hepatitis C Neuropathy GERD Dysphagia Sam's esophagus Past Surgical History Left AV fistula Kidney transplant Bilateral carotid Transplant ureter stent placement and removal Reported Medications Reported Meds & Active Scripts Active Clindamycin (Clindamycin HCl) 300 Mg Cap 300 Mg PO TID 10 Days Spiriva Handihaler (Tiotropium Inh) 18 Mcg Cap 18 Mcg INH DAILY 1 capsule = 18 mcg Ventolin Hfa 18 GM Inh (Albuterol Sulfate) 90 Mcg/Act Aer 1 Puff INH Q4H PRN Furosemide 20 Mg Tab 20 Mg PO DAILY Reported Lantus Inj (Insulin Glargine) 100 Unit/Ml Inj 24 Units SQ NIGHTLY Colace (Docusate Sodium) 100 Mg Capsule 100 Mg PO BID Feosol (Ferrous Sulfate) 200 Mg Tab 45 Mg PO DAILY Miralax Powder (Polyethylene Glycol 3350 Powder) 17 Gm Powd 17 Gm PO DAILY Mix and dissolve one measuring cap-ful (17 grams) in water or juice. Feosol (Ferrous Sulfate) 200 Mg Tab 200 Mg PO DAILY Multiple Vitamin 1 Tab 1 Tab PO DAILY Procardia XL (Nifedipine) 30 Mg Tab 30 Mg PO HS Isosorbide Mononitrate ER (Isosorbide Mononitrate) 30 Mg Cherise 30 Mg PO DAILY [Trimix Inj] 1 Injection IC INTERMITTENT PRN Novolog Inj (Insulin Aspart) 1,000 Unit/10 Ml Vial 0 SQ ACHS AND 3AM Sliding Scale as directed. Lantus Inj (Insulin Glargine) 1,000 Unit/10 Ml Vial 24 Units SQ HS Hydrocodone-Acetaminophen 10-325 mg Tab 1 Tab PO TID PRN Ativan (Lorazepam) 1 Mg Tab 3 Mg PO HS Lyrica (Pregabalin) 25 Mg Cap 25 Mg PO TID Linzess (Linaclotide) 290 Mcg Cap 290 Mcg PO DAILY PRN Colace (Docusate Sodium) 100 Mg Cap 100 Mg PO BID Clonidine (Clonidine HCl) 0.1 Mg Tab 0.1 Mg PO DAILY Labetalol (Labetalol HCl) 200 Mg Tab 200 Mg PO BID Prednisone 5 Mg Tab 5 Mg PO DAILY Cellcept (Mycophenolate Mofetil) 500 Mg Tab 500 Mg PO BID Tacrolimus 1 Mg Cap 3 Mg PO Q12H Sodium Bicarbonate 650 Mg Tab 650 Mg PO BIDPC Active Ordered Medications Current Medications Medications (Trade) Dose Ordered Sig/Rai Route Start Time Stop Time Status Last Admin (NS Flush) 2 ml UNSCH PRN IV FLUSH 10/16/16 19:30 (NS Flush) 2 ml BID IV FLUSH 10/16/16 21:00 10/17/16 08:30 (Narcan Inj) 0.4 mg UNSCH PRN IV 10/16/16 19:30 Hydromorphone HCl 1 mg 1 mg Q4H PRN IV PUSH 10/17/16 02:00 10/17/16 14:41 (Vancomycin Consult Pharmacy) 0 ml @ 0 mls/hr UNSCH OTHER 10/17/16 02:00 (Catapres) 0.1 mg DAILY PO 10/17/16 09:00 10/17/16 08:30 (Colace) 100 mg BID PO 10/17/16 09:00 10/17/16 08:30 (Lasix) 20 mg DAILY PO 10/17/16 09:00 10/17/16 08:30 (Imdur) 30 mg DAILY@07 PO 10/17/16 07:00 10/17/16 08:30 (Trandate) 200 mg BID PO 10/17/16 09:00 10/17/16 08:30 (Ativan) 3 mg HS PO 10/17/16 21:00 (Procardia Xl) 30 mg HS PO 10/17/16 21:00 (Deltasone) 5 mg DAILY PO 10/17/16 09:00 10/17/16 08:30 (Lyrica) 25 mg TID PO 10/17/16 09:00 10/17/16 17:44 (Sodium Bicarbonate) 650 mg BIDPC PO 10/17/16 09:00 10/17/16 17:44 (D50w (Vial) Inj) 50 ml UNSCH PRN IV 10/17/16 02:30 (Glucagon Inj) 1 mg UNSCH PRN OTHER 10/17/16 02:30 (Heparin Inj) 5,000 units Q8HR SQ 10/17/16 14:00 10/17/16 12:55 Tacrolimus 3 mg 3 mg BID@,18 PO 10/17/16 18:00 10/17/16 17:43 (Maxipime Inj/NS Inj) 100 ml @ 200 mls/hr Q24H IV 10/17/16 14:00 10/17/16 14:40 (Cellcept) 500 mg BID@,18 PO 10/17/16 18:00 10/17/16 17:44 Social History Denies smoking or alcohol Physical Exam Vital Signs Vital Signs Date Time Temp Pulse Resp B/P Pulse Ox O2 Delivery O2 Flow Rate FiO2 10/17/16 16:24 97.7 73 18 166/77 94 10/17/16 11:30 97.5 76 18 176/77 95 10/17/16 10:03 93 Nasal Cannula 2.00 10/17/16 09:23 175/76 10/17/16 08:00 78 10/17/16 07:18 99.0 78 18 190/87 94 10/17/16 04:25 98.0 70 18 187/84 92 10/17/16 03:28 99 Nasal Cannula 2.00 10/17/16 01:44 96.8 10/16/16 23:42 98.4 72 16 169/77 90 10/16/16 20:30 99.0 75 18 174/79 98 Physical Exam GENERAL: Well-nourished, well-developed patient. SKIN: Warm and dry. HEAD: Normocephalic. EYES: No scleral icterus. No injection or drainage. NECK: Supple, trachea midline. No JVD or lymphadenopathy. CARDIOVASCULAR: Regular rate and rhythm without murmurs, gallops, or rubs. RESPIRATORY: Breath sounds equal bilaterally. No accessory muscle use. GASTROINTESTINAL: Abdomen soft, non-tender, nondistended. EXTREMITIES: No cyanosis, or edema. Left foot great toe at this time redness around the nail bed and he has a bunion which appears red NEUROLOGICAL: Awake, alert, and oriented x 3. Non-focal. Laboratory Laboratory Tests Test 10/16/16 10/17/16 10/17/16 23:35 06:32 06:35 Total Creatine Kinase 62 61 Troponin I 0.03 0.04 Sodium Level 131 Potassium Level 5.4 Chloride Level 101 Carbon Dioxide Level 19.1 Anion Gap 11 Blood Urea Nitrogen 70 Creatinine 2.62 Estimat Glomerular Filtration 25 Rate Random Glucose 161 Calcium Level 9.5 Total Bilirubin 1.7 Aspartate Amino Transf 13 (AST/SGOT) Alanine Aminotransferase 29 (ALT/SGPT) Alkaline Phosphatase 105 Total Protein 6.8 Albumin 3.2 White Blood Count 7.6 Red Blood Count 4.37 Hemoglobin 12.3 Hematocrit 37.1 Mean Corpuscular Volume 84.9 Mean Corpuscular Hemoglobin 28.0 Mean Corpuscular Hemoglobin 33.0 Concent Red Cell Distribution Width 15.2 Platelet Count 124 Mean Platelet Volume 8.5 Neutrophils (%) (Auto) 78.7 Lymphocytes (%) (Auto) 8.5 Monocytes (%) (Auto) 12.2 Eosinophils (%) (Auto) 0.2 Basophils (%) (Auto) 0.4 Neutrophils # (Auto) 6.0 Lymphocytes # (Auto) 0.6 Monocytes # (Auto) 0.9 Eosinophils # (Auto) 0.0 Basophils # (Auto) 0.0 CBC Comment DIFF FINAL Differential Comment Date/Time Procedure Status Source Growth 10/16/16 17:55 Aerobic Blood Culture - Preliminary Resulted Blood Peripheral NO GROWTH IN 1 DAY 10/16/16 17:55 Anaerobic Blood Culture - Preliminary Resulted Blood Peripheral NO GROWTH IN 1 DAY 10/16/16 17:50 Influenza Types A,B Antigen (ALVARO) - Final Complete Nasal Washing NEGATIVE FOR FLU A AND B ANTIGEN.... Result Diagram: 10/17/16 0635 10/17/16 0632 Imaging Last Impressions Chest X-Ray 10/16/16 7390 Signed Impressions: Service Date/Time: Sunday, October 16, 2016 17:54 - CONCLUSION: No evidence of acute cardiopulmonary disease. Derrek Arriaza MD Assessment and Plan Problem List: (1) Kidney transplant status, cadaveric Plan: Patient creatinine is slowly trending up. I will give him IV fluids at bicarbonate as it will help with the potassium movement Patient is a been taking Prograf 3 mg twice a day and mycophenolate 500 mg twice a day we'll continue to monitor his progress Avoid dye studies He is going for a left toenail removal to see if his symptoms improve (2) DM (diabetes mellitus) Plan: Continue monitor blood glucose (3) Foot infection Plan: He was taking clindamycin currently on antibiotics vancomycin and cefepime (4) Hypertension Plan: Monitor blood pressure and it is trending upwards (5) Hyponatremia Plan: Patient will be given Samsca 15 mg one dose Stacy Dias MD Oct 17, 2016 19:23
[2016-10-17] MEDS ORDERED: TOLVAPTAN 15 MG TAB PO ONE (20:00)
[2016-10-17] MEDS: SODIUM BICARBONATE 8.4% INJ 75 MEQ in SODIUM CHLOR 0.45% 1000 ML INJ 1,000 ML IV SCH (22:05)
[2016-10-17] MEDS: NIFEdipine 30 MG SUSTAINED RELEASE TAB PO SCH (22:07)
[2016-10-17] MEDS: LORazepam 1 MG TAB PO SCH (22:07)
[2016-10-18] VITALS (8 sets, daily range): BP systolic 134–166; BP diastolic 64–75; PULSE 64–77; RESP 16–28; TEMP 97.8–98.7; O2SAT 91–95
[2016-10-18] MEDS: RESP: ALBUTEROL 2.5 MG/IPRATROPIUM 0.5 MG NEB (SCH) NEB ×3 (02:54→15:23)
[2016-10-18] MEDS: INSULIN ASPART SUPPLEMENTAL SCALE SQ SCH ×4 (07:00→22:25)
[2016-10-18] MEDS: MYCOPHENOLATE MOFETIL 500 MG TAB PO SCH ×2 (07:06→17:31)
[2016-10-18] MEDS: TACROLIMUS 0.5 MG CAP PO SCH ×2 (07:06→17:31)
[2016-10-18] MEDS: ISOSORBIDE MONONITRATE 30 MG TAB PO SCH (07:06)
[2016-10-18] MEDS: HEPARIN SODIUM - SQ 10,000 UNITS/ML VIAL SQ SCH ×3 (07:07→22:18)
[2016-10-18 07:47] LABS: AUTOMATED NEUTROPHIL # 6.9 TH/MM3 (1.8-7.7); BASOPHIL % 0.3 % (0.0-2.0); EOSINOPHIL % 0.5 % (0.0-4.0); HEMATOCRIT 37.1 % (39.0-51.0); HEMO FLAGS DIFF FINAL; LYMPHOCYTE # 0.7 TH/MM3 (1.0-4.8); MEAN CELL VOLUME 85.1 FL (80.0-100.0); MEAN CORPUSCULAR HEMOGLOBIN 27.4 PG (27.0-34.0); MEAN CORPUSCULAR HGB CONC 32.3 % (32.0-36.0); MONO % 10.4 % (0.0-8.0); NEUT % 80.8 % (16.0-70.0); PLATELET COUNT 147 TH/MM3 (150-450); RED BLOOD COUNT 4.36 MIL/MM3 (4.50-5.90); RED CELL DISTRIBUTION WIDTH 14.5 % (11.6-17.2); WHITE BLOOD COUNT 8.5 TH/MM3 (4.0-11.0)
--- NOTE | 2016-10-18 08:23 | HHI.PR ---
Subjective Remarks f/u for toe infection and chills. patient stated he had chills last night. He stated he feels the same. no other complaints. Objective Vitals Vital Signs Date Time Temp Pulse Resp B/P Pulse Ox O2 Delivery O2 Flow Rate FiO2 10/18/16 07:36 98.7 73 20 142/66 94 10/18/16 07:16 98.0 67 18 144/65 94 10/18/16 00:56 97.8 77 16 163/75 94 10/17/16 20:28 98.2 68 16 154/74 94 10/17/16 19:45 96 Nasal Cannula 2.00 10/17/16 16:24 97.7 73 18 166/77 94 10/17/16 11:30 97.5 76 18 176/77 95 10/17/16 10:03 93 Nasal Cannula 2.00 10/17/16 09:23 175/76 I/O 10/17/16 10/17/16 10/17/16 10/18/16 10/18/16 10/18/16 07:00 15:00 23:00 07:00 15:00 23:00 Intake Total 400 ml Output Total 4 ml 400 ml Balance 400 ml -4 ml -400 ml Intake Oral 400 ml Output Urine Total 4 ml 400 ml Result Diagram: 10/18/16 0635 10/17/16 0632 Objective Remarks GENERAL: This is a well-nourished, well-developed patient in NAD NECK: Trachea midline. No JVD Supple, nontender, no meningeal signs. CARDIOVASCULAR: Regular rate and rhythm without gallops, or rubs. Systolic murmur at aortic area RESPIRATORY: Clear to auscultation. Breath sounds equal bilaterally. No wheezes , rales, or rhonchi. GASTROINTESTINAL: Abdomen soft, non-tender, nondistended No guarding. MUSCULOSKELETAL: left big toe with swelling that has improved. Medications and IVs Current Medications Sodium Chloride 2 ml 2 ml UNSCH PRN IVF FLUSH AFTER USING IV ACCESS; Start at 17:30; Stop 10/17/16 at 02:00; Status DC Sodium Chloride (NS 500 ml Inj) 500 ml @ 500 mls/hr ONCE ONCE IV Last administered on 10/16/16t 17:30; Start 10/16/16 at 17:30; Stop 10/16/16 at 18:29 ; Status DC Morphine Sulfate (Morphine Inj) 4 mg ONCE ONCE IV PUSH Last administered on 18:00; Start 10/16/16 at 18:00; Stop 10/16/16 at 18:01; Status DC Ondansetron HCl (Zofran Inj) 4 mg ONCE ONCE IV PUSH Last administered on 18:00; Start 10/16/16 at 18:00; Stop 10/16/16 at 18:01; Status DC Tacrolimus (Prograf) 3 mg ONCE ONCE PO Last administered on 10/16/16 18:30; Start 10/16/16 at 18:15; Stop 10/16/16 at 18:16; Status DC Acetaminophen (Tylenol) 1,000 mg ONCE ONCE PO Last administered on 10/16/16 18:45; Start 10/16/16 at 18:45; Stop 10/16/16 at 18:46; Status DC Mycophenolate Mofetil 500 mg 500 mg ONCE PO Last administered on 10/16/16 20: 32; Start 10/16/16 at 18:45; Stop 10/17/16 at 10:44; Status DC Piperacillin Sod/ Tazobactam Sod 50 ml @ 100 mls/hr ONCE ONCE IV Last administered on 10/16/16 18:45; Start 10/16/16 at 18:45; Stop 10/17/16 at 13:44 ; Status DC Vancomycin HCl/ Sodium Chloride (Vancomycin Inj/ NS 250 ml Inj) 250 ml @ 250 mls/hr ONCE ONCE IV Last administered on 10/16/16 18:45; Start 10/16/16 at 18 :45; Stop 10/16/16 at 19:44; Status DC Hydromorphone HCl (Dilaudid Pf Inj) 1 mg ONCE ONCE IV PUSH Last administered on 10/16/16 19:15; Start 10/16/16 at 19:15; Stop 10/16/16 at 19:16; Status DC Sodium Chloride (NS Flush) 2 ml UNSCH PRN IV FLUSH FLUSH AFTER USING IV ACCESS ; Start 10/16/16 at 19:30 Sodium Chloride (NS Flush) 2 ml BID IV FLUSH Last administered on 10/17/16 22: 06; Start 10/16/16 at 21:00 Naloxone HCl (Narcan Inj) 0.4 mg UNSCH PRN IV SEE LABEL COMMENTS; Start at 19:30 Hydromorphone HCl 1 mg 1 mg Q4H PRN IV PUSH pain >5 Last administered on 20:39; Start 10/17/16 at 02:00 Piperacillin Sod/ Tazobactam Sod 100 ml @ 200 mls/hr Q6H IV Last administered on 10/17/16 12:56; Start 10/17/16 at 02:00; Stop 10/17/16 at 13:44; Status DC Pharmacy Profile Note (Vancomycin Consult Pharmacy) 0 ml @ 0 mls/hr UNSCH OTHER ; Start 10/17/16 at 02:00 Clonidine (Catapres) 0.1 mg DAILY PO Last administered on 10/17/16 08:30; Start 10/17/16 at 09:00 Docusate Sodium (Colace) 100 mg BID PO Last administered on 10/17/16 21:00; Start 10/17/16 at 09:00 Furosemide (Lasix) 20 mg DAILY PO Last administered on 10/17/16 08:30; Start 10/17/16 at 09:00 Isosorbide Mononitrate (Imdur) 30 mg DAILY@07 PO Last administered on 07:06; Start 10/17/16 at 07:00 Labetalol HCl (Trandate) 200 mg BID PO Last administered on 10/17/16 22:07; Start 10/17/16 at 09:00 Lorazepam (Ativan) 3 mg HS PO Last administered on 10/17/16 22:07; Start 10/17 at 21:00 Mycophenolate Mofetil (Cellcept) 500 mg BID PO Last administered on 10/17/16 08:30; Start 10/17/16 at 09:00; Stop 10/17/16 at 16:03; Status DC Nifedipine (Procardia Xl) 30 mg HS PO Last administered on 10/17/16 22:07; Start 10/17/16 at 21:00 Prednisone (Deltasone) 5 mg DAILY PO Last administered on 10/17/16 08:30; Start 10/17/16 at 09:00 Pregabalin (Lyrica) 25 mg TID PO Last administered on 10/17/16 17:44; Start at 09:00 Sodium Bicarbonate (Sodium Bicarbonate) 650 mg BIDPC PO Last administered on 17:44; Start 10/17/16 at 09:00 Tacrolimus (Prograf) 3 mg Q12H PO Last administered on 10/17/16 02:46; Start 10/17/16 at 02:30; Stop 10/17/16 at 10:41; Status DC Albuterol/ Ipratropium (Duoneb Neb) 1 ampule Q6HR NEB NEB Last administered on 10/18/16 07:53; Start 10/17/16 at 04:00 Albuterol/ Ipratropium (Duoneb Neb) 1 ampule Q2HR NEB PRN NEB wheezing; Start 10/17/16 at 02:30 Dextrose (D50w (Vial) Inj) 50 ml UNSCH PRN IV HYPOGLYCEMIA-SEE COMMENTS; Start 10/17/16 at 02:30 Glucagon (Glucagon Inj) 1 mg UNSCH PRN OTHER HYPOGLYCEMIA-SEE COMMENTS; Start 10/17/16 at 02:30 Insulin Aspart (NovoLOG SUPPLEMENTAL SCALE) 1 ACHS SLIDING SCALE SQ Last administered on 10/17/16 22:05; Start 10/17/16 at 07:00 Heparin Sodium (Porcine) 5000 units 5,000 units Q8HR SQ Last administered on 07:07; Start 10/17/16 at 14:00 Vancomycin HCl/ Sodium Chloride (Vancomycin Inj/ NS 250 ml Inj) 250 ml @ 250 mls/hr ONCE ONCE IV Last administered on 10/17/16 09:43; Start 10/17/16 at 10 :00; Stop 10/17/16 at 10:59; Status DC Sodium Polystyrene Sulfonate (Kayexalate Liq) 15 gm ONCE ONCE PO Last administered on 10/17/16 12:54; Start 10/17/16 at 10:30; Stop 10/17/16 at 10:31 ; Status DC Tacrolimus 3 mg 3 mg BID@06,18 PO Last administered on 10/18/16 07:06; Start 10/17/16 at 18:00 Cefepime HCl/ Sodium Chloride (Maxipime Inj/NS Inj) 100 ml @ 200 mls/hr Q24H IV Last administered on 10/17/16 14:40; Start 10/17/16 at 14:00 Mycophenolate Mofetil 500 mg 500 mg BID@06,18 PO Last administered on 07:06; Start 10/17/16 at 18:00 Sodium Bicarbonate/ Sodium Chloride (Sodium Bicarbonate 8.4% Inj/1/2 NS 1000 ml Inj) 1,075 ml @ 100 mls/hr [id number] IV Last administered on 10/17/16 22:05; Start 10/17/16 at 21:00 Tolvaptan (Samsca) 15 mg ONCE ONCE PO Last administered on 10/17/16 22:06; Start 10/17/16 at 20:00; Stop 10/17/16 at 20:01; Status DC A/P Assessment and Plan Chills -continues to be afebrile. -will see if toe nail infection is caused of chills. -ID is ff. -patient on vancomycin and cefepime. Hyponatremia -patient given dose of Samsca. pending labs for today. Left great toe paronychia -failed outpatient therapy. per Pod doubt that this is caused of chills. -scheduled for total nail avulsion under local anesthetic and send the nail for culture and sensitivity today. Elevated BNP -At the moment no signs of volume overloaded. Patient is on Lasix. -He stated that he has not urinated as much recently. 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 Status post liver transplant -Dr. Dias ff. -His medication was resumed. -Cr went up so was given IVF with bicarb which should help potassium too. Hyperkalemia -s/o Kayexalate. -pending labs today. New heart murmur -Echo was ordered. Pending Echo. May be due to flow murmur. DVT prophylaxiswith heparin. GI prophylaxis on pantoprazole. Discharge Planning Patient failed outpatient oral antibiotic therapy and requires IV antibiotics. Priscilla Lee MD Oct 18, 2016 08:23 Priscilla Lee MD Oct 18, 2016 08:23
[2016-10-18] MEDS: SODIUM BICARBONATE 8.4% INJ 75 MEQ in SODIUM CHLOR 0.45% 1000 ML INJ 1,000 ML IV SCH ×2 (08:53→18:30)
[2016-10-18] MEDS: SODIUM CHLORIDE 0.9% FLUSH 10 ML FLUSH IV FLUSH SCH ×2 (08:54→22:18)
[2016-10-18] MEDS: cloNIDine HCL 0.1 MG TAB PO SCH (08:55)
[2016-10-18] MEDS: DOCUSATE SODIUM 100 MG CAP PO SCH ×2 (08:55→22:19)
[2016-10-18] MEDS: SODIUM BICARBONATE 650 MG TAB PO SCH ×2 (08:55→17:31)
[2016-10-18] MEDS: FUROSEMIDE 20 MG TAB PO SCH (08:55)
[2016-10-18] MEDS: LABETALOL HCL 200 MG TAB PO SCH ×2 (08:55→22:19)
[2016-10-18] MEDS: predniSONE 5 MG TAB PO SCH (08:56)
[2016-10-18] MEDS: PREGABALIN 25 MG CAP PO SCH ×3 (08:56→17:31)
[2016-10-18] MEDS: HYDROmorphone HCL PF 1 MG/ML VIAL IV PUSH PRN ×2 (09:02→22:41)
[2016-10-18] MEDS ORDERED: VANCOMYCIN INJ 1,500 MG in SODIUM CHLORID 0.9% 500 ML INJ 500 ML IV ONE (12:00)
--- NOTE | 2016-10-18 12:16 | PD.POD ---
Subjective Podiatric Problems Inflamed left hallux Pain scale used: 0-10 numeric scale Pain score: 0 Remarks Marc is a 66-year-old male who I saw for an abscess of the left foot which went on to heal. He was admitted the other day with fever and chills and it was determined that he may have an infection of the left hallux. Patient is had swelling of the left hallux chronically secondary to osteoarthritis. I ordered a uric acid which was slightly elevated. He has some erythema at the eponychium of left hallux toenail. I plan on doing a total nail avulsion today with culture of the eponychia. Past Med/Surg/Social History Past Medical History PFS Reviewed: Yes HEENT: REPORTS HX OF: Other HEENT history (Sam's syndrom) Endocrine: REPORTS HX OF: Diabetes mellitus Respiratory: REPORTS HX OF: COPD Genitourinary: REPORTS HX OF: Kidney failure, Other history (kidney transplant) Infectious disease: REPORTS HX OF: Chickenpox, Other inf disease history ( shingles) Psychiatric: REPORTS HX OF: Anxiety Disabilities: REPORTS HX OF: Hearing deficit Past Surgical History Cardiovascular: REPORTS HX OF: Other cardiac surgery Genitourinary: REPORTS HX OF: Other surgery (kidney transplant, stents ) Musculoskeletal: REPORTS HX OF: Other musculoskeletal srg (rt knee) Social History Smoking Status: Former Smoker Review of Systems Notes Changes since yesterday and his 14 point review of systems exam Objective Vital Signs Vital Signs Date Time Temp Pulse Resp B/P Pulse Ox O2 Delivery O2 Flow Rate FiO2 10/18/16 11:14 98.0 64 28 134/64 95 10/18/16 08:00 72 10/18/16 07:36 98.7 73 20 142/66 94 10/18/16 07:16 98.0 67 18 144/65 94 10/18/16 00:56 97.8 77 16 163/75 94 10/17/16 20:28 98.2 68 16 154/74 94 10/17/16 19:45 96 Nasal Cannula 2.00 10/17/16 16:24 97.7 73 18 166/77 94 Coded Allergies: No Known Allergies (Unverified , 10/12/16) Medications and IVs Current Medications Sodium Chloride 2 ml 2 ml UNSCH PRN IVF FLUSH AFTER USING IV ACCESS; Start at 17:30; Stop 10/17/16 at 02:00; Status DC Sodium Chloride (NS 500 ml Inj) 500 ml @ 500 mls/hr ONCE ONCE IV Last administered on 10/16/16 17:30; Start 10/16/16 at 17:30; Stop 10/16/16 at 18:29 ; Status DC Morphine Sulfate (Morphine Inj) 4 mg ONCE ONCE IV PUSH Last administered on 18:00; Start 10/16/16 at 18:00; Stop 10/16/16 at 18:01; Status DC Ondansetron HCl (Zofran Inj) 4 mg ONCE ONCE IV PUSH Last administered on 18:00; Start 10/16/16 at 18:00; Stop 10/16/16 at 18:01; Status DC Tacrolimus (Prograf) 3 mg ONCE ONCE PO Last administered on 10/16/16 18:30; Start 10/16/16 at 18:15; Stop 10/16/16 at 18:16; Status DC Acetaminophen (Tylenol) 1,000 mg ONCE ONCE PO Last administered on 10/16/16 18:45; Start 10/16/16 at 18:45; Stop 10/16/16 at 18:46; Status DC Mycophenolate Mofetil 500 mg 500 mg ONCE PO Last administered on 10/16/16 20: 32; Start 10/16/16 at 18:45; Stop 10/17/16 at 10:44; Status DC Piperacillin Sod/ Tazobactam Sod 50 ml @ 100 mls/hr ONCE ONCE IV Last administered on 10/16/16 18:45; Start 10/16/16 at 18:45; Stop 10/17/16 at 13:44 ; Status DC Vancomycin HCl/ Sodium Chloride (Vancomycin Inj/ NS 250 ml Inj) 250 ml @ 250 mls/hr ONCE ONCE IV Last administered on 10/16/16 18:45; Start 10/16/16 at 18 :45; Stop 10/16/16 at 19:44; Status DC Hydromorphone HCl (Dilaudid Pf Inj) 1 mg ONCE ONCE IV PUSH Last administered on 10/16/16 19:15; Start 10/16/16 at 19:15; Stop 10/16/16 at 19:16; Status DC Sodium Chloride (NS Flush) 2 ml UNSCH PRN IV FLUSH FLUSH AFTER USING IV ACCESS ; Start 10/16/16 at 19:30 Sodium Chloride (NS Flush) 2 ml BID IV FLUSH Last administered on 10/18/16 08: 54; Start 10/16/16 at 21:00 Naloxone HCl (Narcan Inj) 0.4 mg UNSCH PRN IV SEE LABEL COMMENTS; Start at 19:30 Hydromorphone HCl 1 mg 1 mg Q4H PRN IV PUSH pain >5 Last administered on 09:02; Start 10/17/16 at 02:00 Piperacillin Sod/ Tazobactam Sod 100 ml @ 200 mls/hr Q6H IV Last administered on 10/17/16 12:56; Start 10/17/16 at 02:00; Stop 10/17/16 at 13:44; Status DC Pharmacy Profile Note (Vancomycin Consult Pharmacy) 0 ml @ 0 mls/hr UNSCH OTHER ; Start 10/17/16 at 02:00 Clonidine (Catapres) 0.1 mg DAILY PO Last administered on 10/18/16 08:55; Start 10/17/16 at 09:00 Docusate Sodium (Colace) 100 mg BID PO Last administered on 10/18/16 08:55; Start 10/17/16 at 09:00 Furosemide (Lasix) 20 mg DAILY PO Last administered on 10/18/16 08:55; Start 10/17/16 at 09:00 Isosorbide Mononitrate (Imdur) 30 mg DAILY@07 PO Last administered on 07:06; Start 10/17/16 at 07:00 Labetalol HCl (Trandate) 200 mg BID PO Last administered on 10/18/16 08:55; Start 10/17/16 at 09:00 Lorazepam (Ativan) 3 mg HS PO Last administered on 10/17/16 22:07; Start 10/17 at 21:00 Mycophenolate Mofetil (Cellcept) 500 mg BID PO Last administered on 10/17/16 08:30; Start 10/17/16 at 09:00; Stop 10/17/16 at 16:03; Status DC Nifedipine (Procardia Xl) 30 mg HS PO Last administered on 10/17/16 22:07; Start 10/17/16 at 21:00 Prednisone (Deltasone) 5 mg DAILY PO Last administered on 10/18/16 08:56; Start 10/17/16 at 09:00 Pregabalin (Lyrica) 25 mg TID PO Last administered on 10/18/16 08:56; Start at 09:00 Sodium Bicarbonate (Sodium Bicarbonate) 650 mg BIDPC PO Last administered on 08:55; Start 10/17/16 at 09:00 Tacrolimus (Prograf) 3 mg Q12H PO Last administered on 10/17/16 02:46; Start 10/17/16 at 02:30; Stop 10/17/16 at 10:41; Status DC Albuterol/ Ipratropium (Duoneb Neb) 1 ampule Q6HR NEB NEB Last administered on 10/18/16 07:53; Start 10/17/16 at 04:00 Albuterol/ Ipratropium (Duoneb Neb) 1 ampule Q2HR NEB PRN NEB wheezing; Start 10/17/16 at 02:30 Dextrose (D50w (Vial) Inj) 50 ml UNSCH PRN IV HYPOGLYCEMIA-SEE COMMENTS; Start 10/17/16 at 02:30 Glucagon (Glucagon Inj) 1 mg UNSCH PRN OTHER HYPOGLYCEMIA-SEE COMMENTS; Start 10/17/16 at 02:30 Insulin Aspart (NovoLOG SUPPLEMENTAL SCALE) 1 ACHS SLIDING SCALE SQ Last administered on 10/17/16 22:05; Start 10/17/16 at 07:00 Heparin Sodium (Porcine) 5000 units 5,000 units Q8HR SQ Last administered on 07:07; Start 10/17/16 at 14:00 Vancomycin HCl/ Sodium Chloride (Vancomycin Inj/ NS 250 ml Inj) 250 ml @ 250 mls/hr ONCE ONCE IV Last administered on 10/17/16 09:43; Start 10/17/16 at 10 :00; Stop 10/17/16 at 10:59; Status DC Sodium Polystyrene Sulfonate (Kayexalate Liq) 15 gm ONCE ONCE PO Last administered on 10/17/16 12:54; Start 10/17/16 at 10:30; Stop 10/17/16 at 10:31 ; Status DC Tacrolimus 3 mg 3 mg BID@06,18 PO Last administered on 10/18/16 07:06; Start 10/17/16 at 18:00 Cefepime HCl/ Sodium Chloride (Maxipime Inj/NS Inj) 100 ml @ 200 mls/hr Q24H IV Last administered on 10/17/16 14:40; Start 10/17/16 at 14:00 Mycophenolate Mofetil 500 mg 500 mg BID@06,18 PO Last administered on 07:06; Start 10/17/16 at 18:00 Sodium Bicarbonate/ Sodium Chloride (Sodium Bicarbonate 8.4% Inj/1/2 NS 1000 ml Inj) 1,075 ml @ 100 mls/hr [id number] IV Last administered on 10/18/16 08:53; Start 10/17/16 at 21:00 Tolvaptan 15 mg 15 mg ONCE ONCE PO Last administered on 10/17/16 22:06; Start 10/17/16 at 20:00; Stop 10/17/16 at 20:01; Status DC Vancomycin HCl/ Sodium Chloride (Vancomycin Inj/ NS 500 ml Inj) 515 ml @ 250 mls/hr ONCE ONCE IV ; Start 10/18/16 at 12:00; Stop 10/18/16 at 14:03 Other Results Laboratory Tests Test 10/16/16 10/17/16 10/18/16 17:50 06:35 06:35 White Blood Count 6.8 TH/MM3 7.6 TH/MM3 8.5 TH/MM3 Red Blood Count 4.42 MIL/MM3 4.37 MIL/MM3 4.36 MIL/MM3 Hemoglobin 12.2 GM/DL 12.3 GM/DL 12.0 GM/DL Hematocrit 37.7 % 37.1 % 37.1 % Mean Corpuscular Volume 85.2 FL 84.9 FL 85.1 FL Mean Corpuscular Hemoglobin 27.7 PG 28.0 PG 27.4 PG Mean Corpuscular Hemoglobin 32.5 % 33.0 % 32.3 % Concent Red Cell Distribution Width 15.0 % 15.2 % 14.5 % Platelet Count 136 TH/MM3 124 TH/MM3 147 TH/MM3 Mean Platelet Volume 9.2 FL 8.5 FL 9.4 FL Neutrophils (%) (Auto) 75.7 % 78.7 % 80.8 % Lymphocytes (%) (Auto) 11.5 % 8.5 % 8.0 % Monocytes (%) (Auto) 12.5 % 12.2 % 10.4 % Eosinophils (%) (Auto) 0.1 % 0.2 % 0.5 % Basophils (%) (Auto) 0.2 % 0.4 % 0.3 % Neutrophils # (Auto) 5.2 TH/MM3 6.0 TH/MM3 6.9 TH/MM3 Lymphocytes # (Auto) 0.8 TH/MM3 0.6 TH/MM3 0.7 TH/MM3 Monocytes # (Auto) 0.9 TH/MM3 0.9 TH/MM3 0.9 TH/MM3 Eosinophils # (Auto) 0.0 TH/MM3 0.0 TH/MM3 0.0 TH/MM3 Basophils # (Auto) 0.0 TH/MM3 0.0 TH/MM3 0.0 TH/MM3 CBC Comment DIFF FINAL DIFF FINAL DIFF FINAL Differential Comment Laboratory Tests Test 10/16/16 10/16/16 10/17/16 17:50 23:35 06:32 Sodium Level 134 MEQ/L 131 MEQ/L Potassium Level 5.2 MEQ/L 5.4 MEQ/L Chloride Level 105 MEQ/L 101 MEQ/L Carbon Dioxide Level 16.9 MEQ/L 19.1 MEQ/L Anion Gap 12 MEQ/L 11 MEQ/L Blood Urea Nitrogen 75 MG/DL 70 MG/DL Creatinine 2.43 MG/DL 2.62 MG/DL Estimat Glomerular Filtration 27 ML/MIN 25 ML/MIN Rate Random Glucose 183 MG/DL 161 MG/DL Lactic Acid Level 0.7 mmol/L Calcium Level 9.4 MG/DL 9.5 MG/DL Magnesium Level 2.2 MG/DL Total Bilirubin 1.2 MG/DL 1.7 MG/DL Aspartate Amino Transf 16 U/L 13 U/L (AST/SGOT) Alanine Aminotransferase 32 U/L 29 U/L (ALT/SGPT) Alkaline Phosphatase 116 U/L 105 U/L Total Creatine Kinase 75 U/L 62 U/L 61 U/L Troponin I 0.03 NG/ML 0.03 NG/ML 0.04 NG/ML B-Type Natriuretic Peptide 2215 PG/ML Total Protein 6.9 GM/DL 6.8 GM/DL Albumin 3.3 GM/DL 3.2 GM/DL Uric Acid 7.8 MG/DL Microbiology Date/Time Procedure Status Source Growth 10/16/16 17:50 Aerobic Blood Culture - Preliminary Resulted Blood Peripheral NO GROWTH IN 2 DAYS 10/16/16 17:50 Anaerobic Blood Culture - Preliminary Resulted Blood Peripheral NO GROWTH IN 2 DAYS 10/16/16 17:50 Influenza Types A,B Antigen (ALVARO) - Final Complete Nasal Washing NEGATIVE FOR FLU A AND B ANTIGEN.... 10/16/16 17:55 Aerobic Blood Culture - Preliminary Resulted Blood Peripheral NO GROWTH IN 2 DAYS 10/16/16 17:55 Anaerobic Blood Culture - Preliminary Resulted Blood Peripheral NO GROWTH IN 2 DAYS Exam-Podiatry Constitutional General appearance: comfortable Nutritional status: normal Orientation: alert and oriented x3 Dermatological Exam Skin Temp - Right: Within Normal Limits Skin Texture - Right: Within Normal Limits Skin Elasticity - Right: Within Normal Limits Skin Tugor - Right: Within Normal Limits Hair Growth - Right: Within Normal Limits Pigmentation - Right: Within Normal Limits Skin Temp - Left: Within Normal Limits Skin Texture - Left: Within Normal Limits Skin Elasticity - Left: Within Normal Limits Skin Tugor - Left: Within Normal Limits Hair Growth - Left: Within Normal Limits Pigmentation - Left: Within Normal Limits Abnormal Nail Conditions Edema seen at the proximal eponychia of the left hallux nail and no purulent drainage present. Discoloration: Toe #5 (R), Toe #4 (R), Toe #3 (R), Toe #2 (R), Toe #1 (R), Toe #1 (L), Toe #2 (L), Toe #3 (L), Toe #4 (L), Toe #5 (L) Thickening: Toe #5 (R), Toe #4 (R), Toe #3 (R), Toe #2 (R), Toe #1 (R), Toe #1 (L), Toe #2 (L), Toe #3 (L), Toe #4 (L), Toe #5 (L) Yellow, Brittle, &/or Ant: Toe #5 (R), Toe #4 (R), Toe #3 (R), Toe #2 (R) , Toe #1 (R), Toe #1 (L), Toe #2 (L), Toe #3 (L), Toe #4 (L), Toe #5 (L) Vascular/Lymphatic Exam R Dorsails Pedis: Palpable L Dorsails Pedis: Palpable R Posterior Tibial: Palpable L Posterior Tibial: Palpable Neurologic Exam Present on right: Tingling, Paraesthesia Present on left: Tingling, Paraesthesia Musculoskeletal Exam Details The arthritis of the left first MPJ Muscle Strength Dorsiflexion (Right): Normal Plantarflexion (Right): Normal Inversion (Right): Normal Eversion (Right): Normal Digital (Right): Normal Dorsiflexion (Left): Normal Plantarflexion (Left): Normal Inversion (Left): Normal Eversion (Left): Normal Digital (Left): Normal Foot Range of Motion Dorsiflexion (Right): Normal Plantarflexion (Right): Normal Inversion (Right): Normal Eversion (Right): Normal Digital (Right): Normal Dorsiflexion (Left): Normal Plantarflexion (Left): Normal Inversion (Left): Normal Eversion (Left): Normal Digital (Left): Normal Joint Instability Bunion (Left): Pain on Bunion Palpitiation, Crepitus 1st MPJ, Limited 1st MPJ Dorsal Motion, Limited 1st MPJ Plantar Motion Assessment & Plan Diagnosis: (1) Foot infection Status: Acute (2) DM (diabetes mellitus) Status: Chronic A/P PLAN: The appropriate consent form was obtained. The left hallux was anesthetized with 5 cc of a one-to-one mixture of 2% lidocaine and 0.5% Marcaine. Total nail avulsion was performed. A culture swab was obtained of the proximal epionychium. Gauze dressing was applied. May switch to a Band-Aid tomorrow. I doubt that his toe is the cause of his chills and fever. Patient may be having a gout attack of the left hallux. Continue to follow Problem Qualifiers (1) DM (diabetes mellitus): Qualified Code: E11.42 - Type 2 diabetes mellitus with diabetic polyneuropathy , without long-term current use of insulin Chung Matos DPM Oct 18, 2016 12:16
[2016-10-18 13:55] LABS: ALT (GPT) 30 U/L (12-78); ANION GAP 15 MEQ/L (5-15); AST (GOT) 22 U/L (15-37); BLOOD UREA NITROGEN 79 MG/DL (7-18); CHLORIDE 105 MEQ/L (98-107); GLOMERULAR FILTRATION RATE 22 ML/MIN (>89); MAGNESIUM 2.2 MG/DL (1.5-2.5); POTASSIUM 5.3 MEQ/L (3.5-5.1); SODIUM (NA) 134 MEQ/L (136-145)
--- NOTE | 2016-10-18 14:04 | HHI.NPPN ---
Subjective History of Present Illness 66 year old with kidney transplant, HTN.DM not feeling well, has Left foot infection Additional Remarks patient is doing better had toe nail removed Review of Systems General Constitutional: Fatigue Objective Data Data 10/17/16 10/18/16 19:00 07:00 Output Total 4 ml Balance -4 ml Output Urine Total 4 ml Vital Signs Date Time Temp Pulse Resp B/P Pulse Ox O2 Delivery O2 Flow Rate FiO2 10/18/16 11:14 98.0 64 28 134/64 95 10/18/16 08:00 72 10/18/16 07:36 98.7 73 20 142/66 94 10/18/16 07:16 98.0 67 18 144/65 94 10/18/16 00:56 97.8 77 16 163/75 94 10/17/16 20:28 98.2 68 16 154/74 94 10/17/16 19:45 96 Nasal Cannula 2.00 10/17/16 16:24 97.7 73 18 166/77 94 -: 10/18/16 0635 10/18/16 0635 Microbiology 10/18/16 Gram Stain, Received Pending 10/18/16 Wound Culture, Received Pending Physical Exam General Appearance: Well Developed, Well Nourished Neck Neck Exam: Neck Supple Pulmonary Resp Exam: Clear Bilaterally, Breath Sounds Equal Cardiology CV Exam: Regular, Normal Sinus Rhythm Gastrointestinal/Abdomen GI Exam: Soft, Non-Tender, Bowel Sounds Present Extremeties Extremities Exam: Moderate Edema Neurologic Neuro Exam: Alert Assessment/Plan Problem List: (1) Kidney transplant status, cadaveric Plan: Patient creatinine is slowly trending up. I will give him IV fluids at bicarbonate cr 2.8 order Transplant U/S UOP improve with IVF BMP in am (2) DM (diabetes mellitus) Plan: Continue monitor blood glucose (3) Foot infection Plan: He was taking clindamycin currently on antibiotics vancomycin and cefepime (4) Hypertension Plan: Monitor blood pressure and it is trending upwards (5) Hyponatremia Plan: Patient received Samsca 15 mg one dose Na improved Problem Qualifiers (1) DM (diabetes mellitus): Qualified Code: E11.42 - Type 2 diabetes mellitus with diabetic polyneuropathy , without long-term current use of insulin Stacy Dias MD Oct 18, 2016 14:04
[2016-10-18 14:05] LABS: ALKALINE PHOSPHATASE 108 U/L (45-117); TOTAL BILIRUBIN ADULT 1.6 MG/DL (0.2-1.0)
[2016-10-18] MEDS: CEFEPIME INJ 2,000 MG in SODIUM CHLORIDE 0.9% INJ 100 ML IV SCH (14:14)
--- NOTE | 2016-10-18 15:46 | HHI.IDPN ---
Subjective Subjective Remarks still has chills (improved), no documented fevers CP imptoved blood clx negative sp remaoval of nail from hallux by Dr Matos ? gout, no osteo Antibiotics cefepime IV vancomycin - last on 10/18 Allergies: Coded Allergies: No Known Allergies (Unverified , 10/12/16) Objective . Vital Signs Date Time Temp Pulse Resp B/P Pulse Ox O2 Delivery O2 Flow Rate FiO2 10/18/16 11:14 98.0 64 28 134/64 95 10/18/16 08:00 72 10/18/16 07:36 98.7 73 20 142/66 94 10/18/16 07:16 98.0 67 18 144/65 94 10/18/16 00:56 97.8 77 16 163/75 94 10/17/16 20:28 98.2 68 16 154/74 94 10/17/16 19:45 96 Nasal Cannula 2.00 10/17/16 16:24 97.7 73 18 166/77 94 10/17/16 10/17/16 10/18/16 15:00 23:00 07:00 Output Total 4 ml Balance -4 ml Output Urine Total 4 ml . Laboratory Tests Test 10/16/16 10/17/16 10/18/16 17:50 06:35 06:35 White Blood Count 6.8 TH/MM3 7.6 TH/MM3 8.5 TH/MM3 Red Blood Count 4.42 MIL/MM3 4.37 MIL/MM3 4.36 MIL/MM3 Hemoglobin 12.2 GM/DL 12.3 GM/DL 12.0 GM/DL Hematocrit 37.7 % 37.1 % 37.1 % Mean Corpuscular Volume 85.2 FL 84.9 FL 85.1 FL Mean Corpuscular Hemoglobin 27.7 PG 28.0 PG 27.4 PG Mean Corpuscular Hemoglobin 32.5 % 33.0 % 32.3 % Concent Red Cell Distribution Width 15.0 % 15.2 % 14.5 % Platelet Count 136 TH/MM3 124 TH/MM3 147 TH/MM3 Mean Platelet Volume 9.2 FL 8.5 FL 9.4 FL Neutrophils (%) (Auto) 75.7 % 78.7 % 80.8 % Lymphocytes (%) (Auto) 11.5 % 8.5 % 8.0 % Monocytes (%) (Auto) 12.5 % 12.2 % 10.4 % Eosinophils (%) (Auto) 0.1 % 0.2 % 0.5 % Basophils (%) (Auto) 0.2 % 0.4 % 0.3 % Neutrophils # (Auto) 5.2 TH/MM3 6.0 TH/MM3 6.9 TH/MM3 Lymphocytes # (Auto) 0.8 TH/MM3 0.6 TH/MM3 0.7 TH/MM3 Monocytes # (Auto) 0.9 TH/MM3 0.9 TH/MM3 0.9 TH/MM3 Eosinophils # (Auto) 0.0 TH/MM3 0.0 TH/MM3 0.0 TH/MM3 Basophils # (Auto) 0.0 TH/MM3 0.0 TH/MM3 0.0 TH/MM3 CBC Comment DIFF FINAL DIFF FINAL DIFF FINAL Differential Comment Laboratory Tests Test 10/16/16 10/16/16 10/17/16 10/18/16 17:50 23:35 06:32 06:35 Sodium Level 134 MEQ/L 131 MEQ/L 134 MEQ/L Potassium Level 5.2 MEQ/L 5.4 MEQ/L 5.3 MEQ/L Chloride Level 105 MEQ/L 101 MEQ/L 105 MEQ/L Carbon Dioxide Level 16.9 MEQ/L 19.1 MEQ/L 14.0 MEQ/L Anion Gap 12 MEQ/L 11 MEQ/L 15 MEQ/L Blood Urea Nitrogen 75 MG/DL 70 MG/DL 79 MG/DL Creatinine 2.43 MG/DL 2.62 MG/DL 2.87 MG/DL Estimat Glomerular Filtration 27 ML/MIN 25 ML/MIN 22 ML/MIN Rate Random Glucose 183 MG/DL 161 MG/DL 117 MG/DL Lactic Acid Level 0.7 mmol/L Calcium Level 9.4 MG/DL 9.5 MG/DL 9.3 MG/DL Magnesium Level 2.2 MG/DL 2.2 MG/DL Total Bilirubin 1.2 MG/DL 1.7 MG/DL 1.6 MG/DL Aspartate Amino Transf 16 U/L 13 U/L 22 U/L (AST/SGOT) Alanine Aminotransferase 32 U/L 29 U/L 30 U/L (ALT/SGPT) Alkaline Phosphatase 116 U/L 105 U/L 108 U/L Total Creatine Kinase 75 U/L 62 U/L 61 U/L Troponin I 0.03 NG/ML 0.03 NG/ML 0.04 NG/ML B-Type Natriuretic Peptide 2215 PG/ML Total Protein 6.9 GM/DL 6.8 GM/DL 6.9 GM/DL Albumin 3.3 GM/DL 3.2 GM/DL 3.2 GM/DL Uric Acid 7.8 MG/DL Phosphorus Level 3.0 MG/DL Thyroid Stimulating Hormone 1.780 uIU/ML 3rd Gen Microbiology Date/Time Procedure Status Source Growth 10/16/16 17:50 Aerobic Blood Culture - Preliminary Resulted Blood Peripheral NO GROWTH IN 2 DAYS 10/16/16 17:50 Anaerobic Blood Culture - Preliminary Resulted Blood Peripheral NO GROWTH IN 2 DAYS 10/16/16 17:50 Influenza Types A,B Antigen (ALVARO) - Final Complete Nasal Washing NEGATIVE FOR FLU A AND B ANTIGEN.... 10/16/16 17:55 Aerobic Blood Culture - Preliminary Resulted Blood Peripheral NO GROWTH IN 2 DAYS 10/16/16 17:55 Anaerobic Blood Culture - Preliminary Resulted Blood Peripheral NO GROWTH IN 2 DAYS 10/18/16 12:00 Gram Stain Received Wound Toe Pending 10/18/16 12:00 Wound Culture Received Wound Toe Pending Imaging Last Impressions Chest X-Ray 10/16/16 1730 Signed Impressions: Service Date/Time: Sunday, October 16, 2016 17:54 - CONCLUSION: No evidence of acute cardiopulmonary disease. Derrek Arriaza MD Physical Exam CONSTITUTIONAL/GENERAL: This is an adequately nourished patient, in no apparent distress. TUBES/LINES/DRAINS: LUE AV fistula with good thrill, no e/o infx SKIN: No jaundice, rashes, or lesions. S CARDIOVASCULAR: Regular rate and rhythm without murmurs, gallops, or rubs. RESPIRATORY/CHEST: Symmetric, unlabored respirations. Clear to auscultation. Breath sounds equal bilaterally. No wheezes, rales, or rhonchi. GASTROINTESTINAL: Abdomen soft, non-tender, nondistended. No hepato-splenomegaly , or palpable masses. No guarding. Bowel sounds present. GENITOURINARY: Without palpable bladder distension. MUSCULOSKELETAL: Extremities without clubbing, cyanosis, or edema R foot L foot with healed incision in 3rd inter digital space dressing in place ove rL hallux with some bloody stain LYMPHATICS: No palpable cervical or supraclavicular adenopathy. NEUROLOGICAL: Awake and alert. Motor and sensory grossly within normal limits. Follows commands. Clear speech Moves all extremities. PSYCHIATRIC: No obvious anxiety/depression. no apparent hallucinations or other psychotic thought process. Assessment & Plan Remarks Febrile illness in kidney transplant pt - going on x 1 week - aw dry cough, neg CXR - neg blood, urine clx - no fever, no leukocytosis on this admission CHF exacebrbation - 2 D echo with 35% EF as of 08/20 ? L hallux paronichim, sp naiol removal, clx P cough - serial CXRs improved and showed no infiltrate on today's film FU blood clx - fu temps, WBC - cont vanco - cont cefepime dw Matthew Matos and Nancy Lee MD Oct 18, 2016 15:46
[2016-10-18] MEDS ORDERED: SODIUM CHLORIDE 0.65% NASAL DRP/SPRY 30 ML BTL EACH NARE PRN (19:00)
[2016-10-18] MEDS ORDERED: PHENOL 1.4% SOLN 180 ML BTL OROPHARYNG PRN (19:00)
[2016-10-18] MEDS ORDERED: SODIUM CHLORIDE 0.65% NASAL SPRAY 45 ML BTL NASAL PRN (19:41)
--- NOTE | 2016-10-18 21:20 | RADRPT ---
EXAM DATE/TIME: 10/18/2016 20:01 [facility] COMPARISON: No previous studies available for comparison. INDICATIONS : Increased labs. MEDICAL HISTORY : Hypertension. Hepatitis C. Congestive heart failure. Barratt's syndrome. renal failure. dialysis. eklsi betes. SURGICAL HISTORY : AV shunt. Cardiac cath. Renal transplant. Left foot surgery. ENCOUNTER: Initial ACUITY: 1 day PAIN SCORE: 4/10 LOCATION: Bilateral upper quadrant MEASUREMENTS: LIVER: 18.9 cm length COMMON DUCT: 4 mm RIGHT KIDNEY: 10.2 x 3.5 x 4.7 cm SPLEEN: 11.5 cm length FINDINGS: LIVER: Mildly enlarged liver. No focal hepatic lesion. No intrahepatic biliary distention. COMMON DUCT: No intraluminal mass or stone visualized. GALLBLADDER: Contains no stones, demonstrates no wall thickening or pericholecystic fluid. PANCREAS: The visualized portions are within normal limits. RIGHT KIDNEY: Atrophic. No hydronephrosis. 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 Spleen itself is within normal limits. Suspected 3 cm splenul e. CONCLUSION: 1. Nonspecific hepatomegaly. 2. 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 3. Atrophied right kidney. Derrek Arriaza MD on October 18, 2016 at 21:13 Board Certified Radiologist. This report was verified electronically.
--- NOTE | 2016-10-18 21:27 | RADRPT ---
EXAM DATE/TIME: 10/18/2016 20:18 [facility] COMPARISON: US KIDNEY / TRANSPLANT, August 17, 2016, 11:26. INDICATIONS : Hydronephrosis. Acute renal failure with worsening creatinine. MEDICAL HISTORY : Hypertension. Hepatitis C. Congestive heart failure. Barratt's syndrome. renal failure. dialysis. kelsi betes. SURGICAL HISTORY : AV shunt. Cardiac cath. Right kidney transplant. Left foot surgery. ENCOUNTER: Subsequent ACUITY: 1 month PAIN SCORE: 4/10 LOCATION: Right lower quadrant MEASUREMENTS: TRANSPLANT KIDNEY: 10.1 x 5.5 x 4.7 cm LOCATION: Right lower quadrant. PREVIOUS ULTRASOUND: Aug 17 2016 PREVIOUS ARCUATE ARTERIES INDEX: Upper - 0.7 Mid - 0.7 Lower - 0.6 ARCUATE ARTERIES RESISTIVE INDEX: Upper - 0.8 Mid - 0.8 Lower - 0.8 RA/EIA Ratio: 0.83 MAIN RENAL ARTERY VELOCITY: (cm/sec): 164 MAIN RENAL VEIN: Patent EXTERNAL ILIAC ARTERY VELOCITY (cm/sec): 197 * NORMAL DOPPLER FINDINGS Arcuate arteries - RI = 0.6 - 0.8 Renal artery = under 200 cm/sec Renal vein = May be monophasic with continuous flow or demonstrate some pulsatility with cardiac cycl e FINDINGS: TRANSPLANT KIDNEY: The transplant is in the right iliac fossa. Normal cortical thickness and echotexture. No hydronephr osis, stone, or mass. The elongated fluid collection adjacent to the lower pole is stable, roughly 21 x 38 x 31 mm in size.. URINARY BLADDER: Within normal limits given the degree of distension. CONCLUSION: 1. Resistive indices of the transplant kidney have increased slightly in the interim and are now at t he upper limits of normal. 2. No acute obstructive uropathy demonstrated. Parenchymal echogenicity within normal limits. Derrek rAriaza MD on October 18, 2016 at 21:21 Board Certified Radiologist. This report was verified electronically.
[2016-10-18] MEDS: LORazepam 1 MG TAB PO SCH (22:20)
[2016-10-18] MEDS: NIFEdipine 30 MG SUSTAINED RELEASE TAB PO SCH (22:20)
[2016-10-19] VITALS (10 sets, daily range): BP systolic 124–155; BP diastolic 60–85; PULSE 60–71; RESP 18–20; TEMP 97.8–99.1; O2SAT 91–95
[2016-10-19] MEDS: SODIUM BICARBONATE 8.4% INJ 75 MEQ in SODIUM CHLOR 0.45% 1000 ML INJ 1,000 ML IV SCH (06:08)
[2016-10-19] MEDS: MYCOPHENOLATE MOFETIL 500 MG TAB PO SCH ×2 (06:08→17:06)
[2016-10-19] MEDS: ISOSORBIDE MONONITRATE 30 MG TAB PO SCH (06:08)
[2016-10-19] MEDS: INSULIN ASPART SUPPLEMENTAL SCALE SQ SCH ×4 (06:09→21:21)
[2016-10-19] MEDS: HEPARIN SODIUM - SQ 10,000 UNITS/ML VIAL SQ SCH ×3 (06:09→21:16)
[2016-10-19] MEDS: TACROLIMUS 0.5 MG CAP PO SCH ×2 (06:10→17:06)
[2016-10-19] MEDS: PREGABALIN 25 MG CAP PO SCH ×3 (08:08→17:06)
[2016-10-19] MEDS: SODIUM BICARBONATE 650 MG TAB PO SCH ×2 (08:08→17:06)
[2016-10-19] MEDS: DOCUSATE SODIUM 100 MG CAP PO SCH ×2 (08:08→21:16)
[2016-10-19] MEDS: SODIUM CHLORIDE 0.9% FLUSH 10 ML FLUSH IV FLUSH SCH ×2 (08:09→21:00)
[2016-10-19] MEDS: cloNIDine HCL 0.1 MG TAB PO SCH (08:09)
[2016-10-19] MEDS: LABETALOL HCL 200 MG TAB PO SCH ×2 (08:09→21:16)
[2016-10-19] MEDS: FUROSEMIDE 20 MG TAB PO SCH (08:09)
[2016-10-19] MEDS: predniSONE 5 MG TAB PO SCH (08:09)
[2016-10-19 08:30] LABS: ALT (GPT) 27 U/L (12-78); ANION GAP 11 MEQ/L (5-15); AST (GOT) 13 U/L (15-37); BICARBONATE 19.2 MEQ/L (21.0-32.0); BLOOD UREA NITROGEN 77 MG/DL (7-18); CHLORIDE 104 MEQ/L (98-107); GLOMERULAR FILTRATION RATE 24 ML/MIN (>89); POTASSIUM 4.8 MEQ/L (3.5-5.1); SODIUM (NA) 134 MEQ/L (136-145)
[2016-10-19 08:35] LABS: ALKALINE PHOSPHATASE 108 U/L (45-117); TOTAL BILIRUBIN ADULT 1.3 MG/DL (0.2-1.0)
--- NOTE | 2016-10-19 08:53 | HHI.PR ---
Subjective Remarks Follow for chills Patient stated that he has not had chills for over 24 hours. Patient concerned that his kidney may be obstructed. He stated that the nurse told him that he is retaining fluid that he may have an obstruction. Patient said that he has been urinating well and always produces urine. He stated that sometimes he does have a weak stream. Patient is asking for further studies in regards to this. Denies any shortness of breathing, chest pain, palpitation, lightheadedness or dizziness. Otherwise patient stated that he is feeling well but is concerned that his creatinine is increasing. Objective Vitals Vital Signs Date Time Temp Pulse Resp B/P Pulse Ox O2 Delivery O2 Flow Rate FiO2 10/19/16 08:30 68 10/19/16 07:41 98.0 71 18 132/61 95 10/19/16 03:54 98.5 70 18 142/67 91 10/19/16 03:16 69 10/18/16 21:28 76 18 166/71 91 10/18/16 21:07 94 10/18/16 16:26 98.2 66 16 142/64 95 10/18/16 11:14 98.0 64 28 134/64 95 I/O 10/18/16 10/18/16 10/18/16 10/19/16 10/19/16 10/19/16 07:00 15:00 23:00 07:00 15:00 23:00 Intake Total 1150 ml Output Total 400 ml Balance 750 ml IV Total 1150 ml Output Urine Total 400 ml # Voids 4 1 Result Diagram: 10/18/16 0635 10/19/16 0728 Imaging Last Impressions Renal Ultrasound 10/18/16 0000 Signed Impressions: Service Date/Time: October 20:18 - CONCLUSION: 1. Resistive indices of the transplant kidney have increased slightly in the interim and are now at the upper limits of normal. 2. No acute obstructive uropathy demonstrated. Parenchymal echogenicity within normal limits. Derrek Arriaza MD Liver Ultrasound 10/18/16 0000 Signed Impressions: Service Date/Time: October 20:01 - CONCLUSION: 1. Nonspecific hepatomegaly. 2. 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 3. Atrophied right kidney. Derrek Arriaza MD Chest X-Ray 10/16/16 1730 Signed Impressions: Service Date/Time: Sunday, October 16, 2016 17:54 - CONCLUSION: No evidence of acute cardiopulmonary disease. Derrek Arriaza MD Objective Remarks GENERAL: This is a well-nourished, well-developed patient in NAD NECK: Trachea midline. No JVD Supple, nontender, no meningeal signs. CARDIOVASCULAR: Regular rate and rhythm without gallops, or rubs. Systolic murmur at aortic area RESPIRATORY: Clear to auscultation. Breath sounds equal bilaterally. No wheezes , rales, or rhonchi. GASTROINTESTINAL: Abdomen soft, non-tender, nondistended No guarding. MUSCULOSKELETAL: left big toe with swelling that has improved. Medications and IVs Current Medications Sodium Chloride 2 ml 2 ml UNSCH PRN IVF FLUSH AFTER USING IV ACCESS; Start at 17:30; Stop 10/17/16 at 02:00; Status DC Sodium Chloride (NS 500 ml Inj) 500 ml @ 500 mls/hr ONCE ONCE IV Last administered on 10/16/16 17:30; Start 10/16/16 at 17:30; Stop 10/16/16 at 18:29 ; Status DC Morphine Sulfate (Morphine Inj) 4 mg ONCE ONCE IV PUSH Last administered on 18:00; Start 10/16/16 at 18:00; Stop 10/16/16 at 18:01; Status DC Ondansetron HCl (Zofran Inj) 4 mg ONCE ONCE IV PUSH Last administered on 18:00; Start 10/16/16 at 18:00; Stop 10/16/16 at 18:01; Status DC Tacrolimus (Prograf) 3 mg ONCE ONCE PO Last administered on 10/16/16 18:30; Start 10/16/16 at 18:15; Stop 10/16/16 at 18:16; Status DC Acetaminophen (Tylenol) 1,000 mg ONCE ONCE PO Last administered on 10/16/16 18:45; Start 10/16/16 at 18:45; Stop 10/16/16 at 18:46; Status DC Mycophenolate Mofetil 500 mg 500 mg ONCE PO Last administered on 10/16/16 20: 32; Start 10/16/16 at 18:45; Stop 10/17/16 at 10:44; Status DC Piperacillin Sod/ Tazobactam Sod 50 ml @ 100 mls/hr ONCE ONCE IV Last administered on 10/16/16 18:45; Start 10/16/16 at 18:45; Stop 10/17/16 at 13:44 ; Status DC Vancomycin HCl/ Sodium Chloride (Vancomycin Inj/ NS 250 ml Inj) 250 ml @ 250 mls/hr ONCE ONCE IV Last administered on 10/16/16 18:45; Start 10/16/16 at 18 :45; Stop 10/16/16 at 19:44; Status DC Hydromorphone HCl (Dilaudid Pf Inj) 1 mg ONCE ONCE IV PUSH Last administered on 10/16/16 19:15; Start 10/16/16 at 19:15; Stop 10/16/16 at 19:16; Status DC Sodium Chloride (NS Flush) 2 ml UNSCH PRN IV FLUSH FLUSH AFTER USING IV ACCESS ; Start 10/16/16 at 19:30 Sodium Chloride (NS Flush) 2 ml BID IV FLUSH Last administered on 10/18/16 22: 18; Start 10/16/16 at 21:00 Naloxone HCl (Narcan Inj) 0.4 mg UNSCH PRN IV SEE LABEL COMMENTS; Start at 19:30 Hydromorphone HCl 1 mg 1 mg Q4H PRN IV PUSH pain >5 Last administered on 22:41; Start 10/17/16 at 02:00 Piperacillin Sod/ Tazobactam Sod 100 ml @ 200 mls/hr Q6H IV Last administered on 10/17/16 12:56; Start 10/17/16 at 02:00; Stop 10/17/16 at 13:44; Status DC Pharmacy Profile Note (Vancomycin Consult Pharmacy) 0 ml @ 0 mls/hr UNSCH OTHER ; Start 10/17/16 at 02:00 Clonidine (Catapres) 0.1 mg DAILY PO Last administered on 10/19/16 08:09; Start 10/17/16 at 09:00 Docusate Sodium (Colace) 100 mg BID PO Last administered on 10/19/16 08:08; Start 10/17/16 at 09:00 Furosemide (Lasix) 20 mg DAILY PO Last administered on 10/19/16 08:09; Start 10/17/16 at 09:00 Isosorbide Mononitrate (Imdur) 30 mg DAILY@07 PO Last administered on 06:08; Start 10/17/16 at 07:00 Labetalol HCl (Trandate) 200 mg BID PO Last administered on 10/19/16 08:09; Start 10/17/16 at 09:00 Lorazepam (Ativan) 3 mg HS PO Last administered on 10/18/16 22:20; Start 10/17 at 21:00 Mycophenolate Mofetil (Cellcept) 500 mg BID PO Last administered on 10/17/16 08:30; Start 10/17/16 at 09:00; Stop 10/17/16 at 16:03; Status DC Nifedipine (Procardia Xl) 30 mg HS PO Last administered on 10/18/16 22:20; Start 10/17/16 at 21:00 Prednisone (Deltasone) 5 mg DAILY PO Last administered on 10/19/16 08:09; Start 10/17/16 at 09:00 Pregabalin (Lyrica) 25 mg TID PO Last administered on 10/19/16 08:08; Start at 09:00 Sodium Bicarbonate (Sodium Bicarbonate) 650 mg BIDPC PO Last administered on 08:08; Start 10/17/16 at 09:00 Tacrolimus (Prograf) 3 mg Q12H PO Last administered on 10/17/16 02:46; Start 10/17/16 at 02:30; Stop 10/17/16 at 10:41; Status DC Albuterol/ Ipratropium (Duoneb Neb) 1 ampule Q6HR NEB NEB Last administered on 10/18/16 15:23; Start 10/17/16 at 04:00; Stop 10/18/16 at 18:54; Status DC Albuterol/ Ipratropium (Duoneb Neb) 1 ampule Q2HR NEB PRN NEB wheezing; Start 10/17/16 at 02:30 Dextrose (D50w (Vial) Inj) 50 ml UNSCH PRN IV HYPOGLYCEMIA-SEE COMMENTS; Start 10/17/16 at 02:30 Glucagon (Glucagon Inj) 1 mg UNSCH PRN OTHER HYPOGLYCEMIA-SEE COMMENTS; Start 10/17/16 at 02:30 Insulin Aspart (NovoLOG SUPPLEMENTAL SCALE) 1 ACHS SLIDING SCALE SQ Last administered on 10/19/16 06:09; Start 10/17/16 at 07:00 Heparin Sodium (Porcine) 5000 units 5,000 units Q8HR SQ Last administered on 06:09; Start 10/17/16 at 14:00 Vancomycin HCl/ Sodium Chloride (Vancomycin Inj/ NS 250 ml Inj) 250 ml @ 250 mls/hr ONCE ONCE IV Last administered on 10/17/16 09:43; Start 10/17/16 at 10 :00; Stop 10/17/16 at 10:59; Status DC Sodium Polystyrene Sulfonate (Kayexalate Liq) 15 gm ONCE ONCE PO Last administered on 10/17/16 12:54; Start 10/17/16 at 10:30; Stop 10/17/16 at 10:31 ; Status DC Tacrolimus 3 mg 3 mg BID@06,18 PO Last administered on 10/19/16 06:10; Start 10/17/16 at 18:00 Cefepime HCl/ Sodium Chloride (Maxipime Inj/NS Inj) 100 ml @ 200 mls/hr Q24H IV Last administered on 10/18/16 14:14; Start 10/17/16 at 14:00 Mycophenolate Mofetil 500 mg 500 mg BID@06,18 PO Last administered on 06:08; Start 10/17/16 at 18:00 Sodium Bicarbonate/ Sodium Chloride (Sodium Bicarbonate 8.4% Inj/1/2 NS 1000 ml Inj) 1,075 ml @ 100 mls/hr [id number] IV Last administered on 10/19/16 06:08; Start 10/17/16 at 21:00 Tolvaptan 15 mg 15 mg ONCE ONCE PO Last administered on 10/17/16 22:06; Start 10/17/16 at 20:00; Stop 10/17/16 at 20:01; Status DC Vancomycin HCl/ Sodium Chloride (Vancomycin Inj/ NS 500 ml Inj) 515 ml @ 250 mls/hr ONCE ONCE IV Last administered on 10/18/16 12:56; Start 10/18/16 at 12 :00; Stop 10/18/16 at 14:03; Status DC Sodium Chloride (Baby [place] Saline 0.65% Marco Drp/ [place]) 2 drop UNSCH PRN EACH NARE dryness; Start 10/18/16 at 19:00; Stop 10/18/16 at 19:41; Status DC Phenol (Chloraseptic [place]) 2 spray Q2H PRN OROPHARYNG sore throat Last administered on 10/18/16t 22:19; Start 10/18/16 at 19:00 Sodium Chloride ([place]) 2 spray UNSCH PRN NASAL DRYNESS; Start at 19:41 A/P Assessment and Plan Chills -continues to be afebrile. Improved. -May be secondary to toe nail infection is caused of chills. -No signs of infection. -TSH is normal. Consider discontinuing cefepime and vancomycin. Infectious disease is following. Hyponatremia -patient given dose of [place]. -Improved. Left great toe paronychia -failed outpatient therapy. per Pod doubt that this is caused of chills. -s/p total nail avulsion on 10/18/2016. Status post liver transplant -Dr. Larissa melgar. -His medication was resumed. -Creatinine shows mild improvement today. Patient had a renal ultrasound done which showed no obstruction. -Continue management per his correctional facility nurse. Hyperkalemia -s/o Kayexalate. -resolved. History of congestive heart failure -2 D echo with 35% EF as of 08/20 -Be and elevated. Lasix held by correctional facility nurse. -Mild trace edema in a clinical area. -Continue Lasix management per correctional facility nurse. DVT prophylaxiswith heparin. GI prophylaxis on pantoprazole. Discharge Planning Patient failed outpatient oral antibiotic therapy and requires IV antibiotics. Priscilla Lee MD Oct 19, 2016 08:53
--- NOTE | 2016-10-19 13:13 | HHI.NPPN ---
Subjective History of Present Illness 66 year old with kidney transplant, HTN.DM not feeling well, has Left foot infection Additional Remarks patient is doing better had toe nail removed Review of Systems General Constitutional: Fatigue Objective Data Data 10/18/16 10/19/16 19:00 07:00 Intake Total 1150 ml Output Total 400 ml Balance 750 ml IV Total 1150 ml Output Urine Total 400 ml # Voids 4 1 Vital Signs Date Time Temp Pulse Resp B/P Pulse Ox O2 Delivery O2 Flow Rate FiO2 10/19/16 12:16 99.1 65 18 124/60 93 10/19/16 09:10 98.0 62 18 129/62 92 10/19/16 08:30 68 10/19/16 07:41 98.0 71 18 132/61 95 10/19/16 03:54 98.5 70 18 142/67 91 10/19/16 03:16 69 10/18/16 21:28 76 18 166/71 91 10/18/16 21:07 94 10/18/16 16:26 98.2 66 16 142/64 95 -: 10/18/16 0635 10/19/16 0728 Physical Exam General Appearance: Well Developed, Well Nourished Neck Neck Exam: Neck Supple Pulmonary Resp Exam: Clear Bilaterally, Breath Sounds Equal Cardiology CV Exam: Regular, Normal Sinus Rhythm Gastrointestinal/Abdomen GI Exam: Soft, Non-Tender, Bowel Sounds Present Extremeties Extremities Exam: Moderate Edema Neurologic Neuro Exam: Alert Assessment/Plan Problem List: (1) Kidney transplant status, cadaveric Plan: Patient creatinine is better cr 2.7 Transplant U/S no hydro non specific slight increase in resistive indices upper limit of normal UOP improve with IVF OK to discharge fron Nephrology point of view K is better (2) DM (diabetes mellitus) Plan: Continue monitor blood glucose (3) Foot infection Plan: He was taking clindamycin currently on antibiotics vancomycin and cefepime (4) Hypertension Plan: Monitor blood pressure better (5) Hyponatremia Plan: Na improved Problem Qualifiers (1) DM (diabetes mellitus): Qualified Code: E11.42 - Type 2 diabetes mellitus with diabetic polyneuropathy , without long-term current use of insulin Stacy Dias MD Oct 19, 2016 13:13
--- NOTE | 2016-10-19 14:25 | HHI.IDPN ---
Subjective Subjective Remarks remains afebrile, but is SOB denies any new problems Blood from 10/13 growing yeast Nail clx growing mold Antibiotics cefepime IV vancomycin - last on 10/18 Allergies: Coded Allergies: No Known Allergies (Unverified , 10/12/16) Objective . Vital Signs Date Time Temp Pulse Resp B/P Pulse Ox O2 Delivery O2 Flow Rate FiO2 10/19/16 12:16 99.1 65 18 124/60 93 10/19/16 09:10 98.0 62 18 129/62 92 10/19/16 08:30 68 10/19/16 07:41 98.0 71 18 132/61 95 10/19/16 03:54 98.5 70 18 142/67 91 10/19/16 03:16 69 10/18/16 21:28 76 18 166/71 91 10/18/16 21:07 94 10/18/16 16:26 98.2 66 16 142/64 95 10/18/16 10/18/16 10/19/16 15:00 23:00 07:00 Intake Total 1150 ml Output Total 400 ml Balance 750 ml IV Total 1150 ml Output Urine Total 400 ml # Voids 4 1 . Laboratory Tests Test 10/18/16 06:35 White Blood Count 8.5 TH/MM3 Red Blood Count 4.36 MIL/MM3 Hemoglobin 12.0 GM/DL Hematocrit 37.1 % Mean Corpuscular Volume 85.1 FL Mean Corpuscular Hemoglobin 27.4 PG Mean Corpuscular Hemoglobin 32.3 % Concent Red Cell Distribution Width 14.5 % Platelet Count 147 TH/MM3 Mean Platelet Volume 9.4 FL Neutrophils (%) (Auto) 80.8 % Lymphocytes (%) (Auto) 8.0 % Monocytes (%) (Auto) 10.4 % Eosinophils (%) (Auto) 0.5 % Basophils (%) (Auto) 0.3 % Neutrophils # (Auto) 6.9 TH/MM3 Lymphocytes # (Auto) 0.7 TH/MM3 Monocytes # (Auto) 0.9 TH/MM3 Eosinophils # (Auto) 0.0 TH/MM3 Basophils # (Auto) 0.0 TH/MM3 CBC Comment DIFF FINAL Differential Comment Laboratory Tests Test 10/18/16 10/19/16 06:35 07:28 Sodium Level 134 MEQ/L 134 MEQ/L Potassium Level 5.3 MEQ/L 4.8 MEQ/L Chloride Level 105 MEQ/L 104 MEQ/L Carbon Dioxide Level 14.0 MEQ/L 19.2 MEQ/L Anion Gap 15 MEQ/L 11 MEQ/L Blood Urea Nitrogen 79 MG/DL 77 MG/DL Creatinine 2.87 MG/DL 2.72 MG/DL Estimat Glomerular Filtration 22 ML/MIN 24 ML/MIN Rate Random Glucose 117 MG/DL 228 MG/DL Calcium Level 9.3 MG/DL 8.2 MG/DL Phosphorus Level 3.0 MG/DL Magnesium Level 2.2 MG/DL Total Bilirubin 1.6 MG/DL 1.3 MG/DL Aspartate Amino Transf 22 U/L 13 U/L (AST/SGOT) Alanine Aminotransferase 30 U/L 27 U/L (ALT/SGPT) Alkaline Phosphatase 108 U/L 108 U/L Total Protein 6.9 GM/DL 6.3 GM/DL Albumin 3.2 GM/DL 2.7 GM/DL Thyroid Stimulating Hormone 1.780 uIU/ML 3rd Gen Microbiology Date/Time Procedure Status Source Growth 10/16/16 17:50 Aerobic Blood Culture - Preliminary Resulted Blood Peripheral NO GROWTH IN 3 DAYS 10/16/16 17:50 Anaerobic Blood Culture - Preliminary Resulted Blood Peripheral NO GROWTH IN 3 DAYS 10/16/16 17:50 Influenza Types A,B Antigen (ALVARO) - Final Complete Nasal Washing NEGATIVE FOR FLU A AND B ANTIGEN.... 10/16/16 17:55 Aerobic Blood Culture - Preliminary Resulted Blood Peripheral NO GROWTH IN 3 DAYS 10/16/16 17:55 Anaerobic Blood Culture - Preliminary Resulted Blood Peripheral NO GROWTH IN 3 DAYS 10/18/16 12:00 Gram Stain - Final Resulted Wound Toe 10/18/16 12:00 Wound Culture Resulted Wound Toe Pending Imaging Last Impressions Renal Ultrasound 10/18/16 0000 Signed Impressions: Service Date/Time: October 20:18 - CONCLUSION: 1. Resistive indices of the transplant kidney have increased slightly in the interim and are now at the upper limits of normal. 2. No acute obstructive uropathy demonstrated. Parenchymal echogenicity within normal limits. Derrek Arriaza MD Liver Ultrasound 10/18/16 0000 Signed Impressions: Service Date/Time: October 20:01 - CONCLUSION: 1. Nonspecific hepatomegaly. 2. 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 3. Atrophied right kidney. Derrek Arriaza MD Chest X-Ray 10/16/16 1730 Signed Impressions: Service Date/Time: Sunday, October 16, 2016 17:54 - CONCLUSION: No evidence of acute cardiopulmonary disease. Derrek Arriaza MD Physical Exam CONSTITUTIONAL/GENERAL: This is an adequately nourished patient, in no apparent distress. TUBES/LINES/DRAINS: LUE AV fistula with good thrill, no e/o infx SKIN: No jaundice, rashes, or lesions. CARDIOVASCULAR: Regular rate and rhythm without murmurs, gallops, or rubs. RESPIRATORY/CHEST: Symmetric, unlabored respirations. Clear to auscultation. Breath sounds equal bilaterally. No wheezes, rales, or rhonchi. GASTROINTESTINAL: Abdomen soft, non-tender, nondistended. No hepato-splenomegaly , or palpable masses. No guarding. Bowel sounds present. GENITOURINARY: Without palpable bladder distension. MUSCULOSKELETAL: Extremities without clubbing, cyanosis, or edema R foot L foot with dressing in place LYMPHATICS: No palpable cervical axillae or supraclavicular adenopathy. NEUROLOGICAL: Awake and alert. Motor and sensory grossly within normal limits. Follows commands. Clear speech Moves all extremities. PSYCHIATRIC: No obvious anxiety/depression. no apparent hallucinations or other psychotic thought process. Assessment & Plan Remarks Febrile illness in kidney transplant pt New Fungemia , Karen CHF exacebrbation - 2 D echo with 35% EF as of 08/20 ? L hallux paronichim, sp naiol removal, clx P - mold in clx cough - serial CXRs improved and showed no infiltrate on today's film FU blood clx fu 2 D echo start micafungin IV -pt can not be discharged today 2/2 his new diagnosis of candidemia, need further w/u lan Lindquist RN dw pt and his @ b/s Nancy Centeno MD Oct 19, 2016 14:25
[2016-10-19] MEDS: MICAFUNGIN INJ 150 MG in SODIUM CHLORIDE 0.9% INJ 100 ML IV SCH (17:05)
--- NOTE | 2016-10-19 17:24 | ECHRPT ---
Indication: CONCLUSIONS Mildly dilated left ventricle. Mild concentric left ventricular hypertrophy. The left ventricular systolic function is lxkjyrsr-jk-[id number] reduced with an estimated ejection fra ction in the range of 35-40%. The left atrial size is mildly dilated. Mild mitral valve regurgitation. Diffuse calcification of the aortic valve. No aortic valve regurgitation. Moderate to severe aortic valve stenosis. Aortic valve area is 0.88 cm. Aortic valve mean gradient is 39.3 mmHg. There is mild tricuspid valve regurgitation. The estimated pulmonary arterial pressure is _35_ mmHg. Mildly dilated left ventricle. Mild concentric left ventricular hypertrophy. The left ventricular systolic function is vtxsmzqk-ow-uoskeaq reduced with an estimated ejection fra ction in the range of 35-40%. The left atrial size is mildly dilated. Mild mitral valve regurgitation. Diffuse calcification of the aortic valve. No aortic valve regurgitation. Moderate to severe aortic valve stenosis. Aortic valve area is 0.88 cm. Aortic valve mean gradient is 39.3 mmHg. There is mild tricuspid valve regurgitation. The estimated pulmonary arterial pressure is _35_ mmHg. The pulmonary valve is not well visualized. BP: 190 / 87 HR: 78 Rhythm: Sinus MEASUREMENTS (Male / Female) Normal Values Technical Quality:Good 2D ECHO LV Diastolic Diameter PLAX 6.3 cm 4.2 - 5.9 / 3.9 - 5.3 cm LV Systolic Diameter PLAX 5.4 cm IVS Diastolic Thickness 1.6 cm 0.6 - 1.0 / 0.6 - 0.9 cm LVPW Diastolic Thickness 1.4 cm 0.6 - 1.0 / 0.6 - 0.9 cm LV Relative Wall Thickness 0.5 RV Internal Dim ED PLAX 2.7 cm LVOT Diameter 2.2 cm M-MODE Aortic Root Diameter MM 3.0 cm LA Systolic Diameter MM 5.3 cm LA Ao Ratio MM 1.8 AV Cusp Separation MM 1.1 cm DOPPLER AV Peak Velocity 418.0 cm/s AV Peak Gradient 69.9 mmHg AV Mean Gradient 39.3 mmHg AV Velocity Time Integral 108.3 cm LVOT Peak Velocity 97.8 cm/s LVOT Peak Gradient 3.8 mmHg LVOT Velocity Time Integral 25.1 cm LVOT Cardiac Index 3552.1 cm/minm AV Area Cont Eq vti 0.9 cm AV Area Cont Eq pk 0.9 cm Mitral E Point Velocity 92.8 cm/s Mitral A Point Velocity 78.5 cm/s Mitral E to A Ratio 1.2 TR Peak Velocity 252.0 cm/s TR Peak Gradient 25.4 mmHg FINDINGS LEFT VENTRICLE Mildly dilated left ventricle. Mild concentric left ventricular hypertrophy. The left ventricular systolic function is osekwlox-gs-sqrswvd reduced with an estimated ejection fra ction in the range of 35-40%. RIGHT VENTRICLE Normal right ventricular size and systolic function. LEFT ATRIUM The left atrial size is mildly dilated. RIGHT ATRIUM The right atrial size is normal. ATRIAL SEPTUM Normal atrial septal thickness without atrial level shunting by limited color doppler interrogation. AORTA The aortic root and proximal ascending aorta are normal in size on limited imaging. MITRAL VALVE Structurally normal mitral valve. Mild mitral valve regurgitation. AORTIC VALVE Diffuse calcification of the aortic valve. No aortic valve regurgitation. Moderate to severe aortic valve stenosis. Aortic valve area is 0.88 cm. Aortic valve mean gradient is 39.3 mmHg. TRICUSPID VALVE Structurally normal tricuspid valve. There is mild tricuspid valve regurgitation. The estimated pulmonary arterial pressure is _35_ mmHg. PULMONARY VALVE The pulmonary valve is not well visualized. VESSELS The inferior vena cava is normal in size. PERICARDIUM No pericardial effusion. Zbigniew Centeno MD, FACC, FSCAI (Electronically Signed) Final Date:19 October 2016 17:23
[2016-10-19] MEDS: HYDROmorphone HCL PF 1 MG/ML VIAL IV PUSH PRN (18:06)
[2016-10-19] MEDS: NIFEdipine 30 MG SUSTAINED RELEASE TAB PO SCH (21:16)
[2016-10-19] MEDS: LORazepam 1 MG TAB PO SCH (21:16)
[2016-10-20] VITALS (7 sets, daily range): BP systolic 143–166; BP diastolic 69–76; PULSE 63–76; RESP 18–20; TEMP 98–98.9; O2SAT 88–98
[2016-10-20] MEDS: HYDROmorphone HCL PF 1 MG/ML VIAL IV PUSH PRN ×4 (05:52→20:43)
[2016-10-20] MEDS: INSULIN ASPART SUPPLEMENTAL SCALE SQ SCH ×4 (05:55→20:46)
[2016-10-20] MEDS: HEPARIN SODIUM - SQ 10,000 UNITS/ML VIAL SQ SCH ×3 (05:58→20:41)
[2016-10-20] MEDS: ISOSORBIDE MONONITRATE 30 MG TAB PO SCH (05:59)
[2016-10-20] MEDS: MYCOPHENOLATE MOFETIL 500 MG TAB PO SCH ×2 (05:59→17:12)
[2016-10-20] MEDS: TACROLIMUS 0.5 MG CAP PO SCH (06:00)
[2016-10-20] MEDS: LABETALOL HCL 200 MG TAB PO SCH ×2 (09:45→20:41)
[2016-10-20] MEDS: DOCUSATE SODIUM 100 MG CAP PO SCH ×2 (09:46→20:42)
[2016-10-20] MEDS: SODIUM BICARBONATE 650 MG TAB PO SCH ×2 (09:46→18:00)
[2016-10-20] MEDS: predniSONE 5 MG TAB PO SCH (09:46)
[2016-10-20] MEDS: cloNIDine HCL 0.1 MG TAB PO SCH (09:46)
[2016-10-20] MEDS: FUROSEMIDE 20 MG TAB PO SCH (09:46)
[2016-10-20] MEDS: PREGABALIN 25 MG CAP PO SCH ×3 (09:46→17:12)
[2016-10-20] MEDS: SODIUM CHLORIDE 0.9% FLUSH 10 ML FLUSH IV FLUSH SCH ×2 (09:46→20:41)
--- NOTE | 2016-10-20 10:04 | HHI.NPPN ---
Subjective History of Present Illness 66 year old with kidney transplant, HTN.DM not feeling well, has Left foot infection Additional Remarks Fungemia is noted. Seen by ID. On Micafungin. Renal function is better. Review of Systems General Constitutional: Fatigue Objective Data Data 10/19/16 10/20/16 19:00 07:00 Intake Total 480 ml 1080 ml Output Total 1226 ml Balance 480 ml -146 ml Intake Oral 480 ml 1080 ml Output Urine Total 1225 ml Stool Total 1 ml # Voids 4 # Bowel Movements 0 1 Vital Signs Date Time Temp Pulse Resp B/P Pulse Ox O2 Delivery O2 Flow Rate FiO2 10/20/16 08:00 98.9 71 18 152/69 93 10/20/16 07:15 Nasal Cannula 2.00 10/20/16 06:09 95 Nasal Cannula 2.00 10/20/16 05:45 Nasal Cannula 2.00 10/20/16 04:48 98.5 74 20 153/70 88 10/20/16 04:00 Room Air 10/20/16 00:38 98.5 76 20 164/76 94 10/20/16 00:00 Room Air 10/19/16 21:22 97.8 71 20 144/85 95 10/19/16 20:00 Room Air 10/19/16 20:00 71 10/19/16 16:16 98.0 60 18 155/72 94 10/19/16 16:00 Room Air 10/19/16 12:16 99.1 65 18 124/60 93 10/19/16 12:00 Room Air -: 10/18/16 0635 10/19/16 0728 Physical Exam General Appearance: Well Developed, Well Nourished Neck Neck Exam: Neck Supple Pulmonary Resp Exam: Clear Bilaterally, Breath Sounds Equal Cardiology CV Exam: Regular, Normal Sinus Rhythm Gastrointestinal/Abdomen GI Exam: Soft, Non-Tender, Bowel Sounds Present Extremeties Extremities Exam: Moderate Edema Neurologic Neuro Exam: Alert Assessment/Plan Problem List: (1) Kidney transplant status, cadaveric Plan: Renal function is better. On CellCept, Prednisone and Tacrolimus. (2) DM (diabetes mellitus) Plan: Continue monitor blood glucose (3) Hypertension Plan: BP is stable. (4) Sepsis Plan: ID following. On Micafungin. Discussed with Dr. Centeno. She will start Diflucan. Monitor Prograf level. Problem Qualifiers (1) DM (diabetes mellitus): Qualified Code: E11.42 - Type 2 diabetes mellitus with diabetic polyneuropathy , without long-term current use of insulin Thomas Cox MD Oct 20, 2016 10:04
--- NOTE | 2016-10-20 10:49 | HHI.PR ---
Subjective Remarks Follow-up for multiple issues Patient complaining of a sinus headache. Yesterday he declined any inhaled steroids. He stated that he feels "clogged" in his sinuses. Patient also stated that Dr. Centeno agree with him and that he has some drainage from his toes. Patient stated that I should've consulted his emergency communications dispatcher since he has a emergency communications dispatcher. Positive for shortness of breathing with ambulation. Otherwise has no other complaints. Patient's nurse is at the bedside. Objective Vitals Vital Signs Date Time Temp Pulse Resp B/P Pulse Ox O2 Delivery O2 Flow Rate FiO2 10/20/16 08:00 98.9 71 18 152/69 93 10/20/16 07:15 Nasal Cannula 2.00 10/20/16 06:09 95 Nasal Cannula 2.00 10/20/16 05:45 Nasal Cannula 2.00 10/20/16 04:48 98.5 74 20 153/70 88 10/20/16 04:00 Room Air 10/20/16 00:38 98.5 76 20 164/76 94 10/20/16 00:00 Room Air 10/19/16 21:22 97.8 71 20 144/85 95 10/19/16 20:00 Room Air 10/19/16 20:00 71 10/19/16 16:16 98.0 60 18 155/72 94 10/19/16 16:00 Room Air 10/19/16 12:16 99.1 65 18 124/60 93 10/19/16 12:00 Room Air I/O 10/19/16 10/19/16 10/19/16 10/20/16 10/20/16 10/20/16 07:00 15:00 23:00 07:00 15:00 23:00 Intake Total 480 ml 840 ml 240 ml Output Total 501 ml 725 ml Balance 480 ml 339 ml -485 ml Intake Oral 480 ml 840 ml 240 ml Output Urine Total 500 ml 725 ml Stool Total 1 ml # Voids 4 # Bowel Movements 0 1 Result Diagram: 10/18/16 0635 10/19/16 0728 Objective Remarks GENERAL: This is a well-nourished, well-developed patient in NAD NECK: Trachea midline. No JVD Supple, nontender, no meningeal signs. CARDIOVASCULAR: Regular rate and rhythm without gallops, or rubs. Systolic murmur at aortic area RESPIRATORY: Clear to auscultation. Breath sounds equal bilaterally. No wheezes , rales, or rhonchi. GASTROINTESTINAL: Abdomen soft, non-tender, nondistended No guarding. MUSCULOSKELETAL: left big toe with swelling that has improved. Medications and IVs Current Medications Sodium Chloride 2 ml 2 ml UNSCH PRN IVF FLUSH AFTER USING IV ACCESS; Start at 17:30; Stop 10/17/16 at 02:00; Status DC Sodium Chloride (NS 500 ml Inj) 500 ml @ 500 mls/hr ONCE ONCE IV Last administered on 10/16/16 17:30; Start 10/16/16 at 17:30; Stop 10/16/16 at 18:29 ; Status DC Morphine Sulfate (Morphine Inj) 4 mg ONCE ONCE IV PUSH Last administered on 18:00; Start 10/16/16 at 18:00; Stop 10/16/16 at 18:01; Status DC Ondansetron HCl (Zofran Inj) 4 mg ONCE ONCE IV PUSH Last administered on 18:00; Start 10/16/16 at 18:00; Stop 10/16/16 at 18:01; Status DC Tacrolimus (Prograf) 3 mg ONCE ONCE PO Last administered on 10/16/16 18:30; Start 10/16/16 at 18:15; Stop 10/16/16 at 18:16; Status DC Acetaminophen (Tylenol) 1,000 mg ONCE ONCE PO Last administered on 10/16/16 18:45; Start 10/16/16 at 18:45; Stop 10/16/16 at 18:46; Status DC Mycophenolate Mofetil 500 mg 500 mg ONCE PO Last administered on 10/16/16 20: 32; Start 10/16/16 at 18:45; Stop 10/17/16 at 10:44; Status DC Piperacillin Sod/ Tazobactam Sod 50 ml @ 100 mls/hr ONCE ONCE IV Last administered on 10/16/16 18:45; Start 10/16/16 at 18:45; Stop 10/17/16 at 13:44 ; Status DC Vancomycin HCl/ Sodium Chloride (Vancomycin Inj/ NS 250 ml Inj) 250 ml @ 250 mls/hr ONCE ONCE IV Last administered on 10/16/16 18:45; Start 10/16/16 at 18 :45; Stop 10/16/16 at 19:44; Status DC Hydromorphone HCl (Dilaudid Pf Inj) 1 mg ONCE ONCE IV PUSH Last administered on 10/16/16 19:15; Start 10/16/16 at 19:15; Stop 10/16/16 at 19:16; Status DC Sodium Chloride (NS Flush) 2 ml UNSCH PRN IV FLUSH FLUSH AFTER USING IV ACCESS ; Start 10/16/16 at 19:30 Sodium Chloride (NS Flush) 2 ml BID IV FLUSH Last administered on 10/20/16 09: 46; Start 10/16/16 at 21:00 Naloxone HCl (Narcan Inj) 0.4 mg UNSCH PRN IV SEE LABEL COMMENTS; Start at 19:30 Hydromorphone HCl 1 mg 1 mg Q4H PRN IV PUSH pain >5 Last administered on 09:52; Start 10/17/16 at 02:00 Piperacillin Sod/ Tazobactam Sod 100 ml @ 200 mls/hr Q6H IV Last administered on 10/17/16 12:56; Start 10/17/16 at 02:00; Stop 10/17/16 at 13:44; Status DC Pharmacy Profile Note (Vancomycin Consult Pharmacy) 0 ml @ 0 mls/hr UNSCH OTHER ; Start 10/17/16 at 02:00; Stop 10/19/16 at 14:48; Status DC Clonidine (Catapres) 0.1 mg DAILY PO Last administered on 10/20/16 09:46; Start 10/17/16 at 09:00 Docusate Sodium (Colace) 100 mg BID PO Last administered on 10/20/16 09:46; Start 10/17/16 at 09:00 Furosemide (Lasix) 20 mg DAILY PO Last administered on 10/20/16 09:46; Start 10/17/16 at 09:00 Isosorbide Mononitrate (Imdur) 30 mg DAILY@07 PO Last administered on 05:59; Start 10/17/16 at 07:00 Labetalol HCl (Trandate) 200 mg BID PO Last administered on 10/20/16 09:45; Start 10/17/16 at 09:00 Lorazepam (Ativan) 3 mg HS PO Last administered on 10/19/16 21:16; Start 10/17 at 21:00 Mycophenolate Mofetil (Cellcept) 500 mg BID PO Last administered on 10/17/16 08:30; Start 10/17/16 at 09:00; Stop 10/17/16 at 16:03; Status DC Nifedipine (Procardia Xl) 30 mg HS PO Last administered on 10/19/16 21:16; Start 10/17/16 at 21:00 Prednisone (Deltasone) 5 mg DAILY PO Last administered on 10/20/16 09:46; Start 10/17/16 at 09:00 Pregabalin (Lyrica) 25 mg TID PO Last administered on 10/20/16 09:46; Start at 09:00 Sodium Bicarbonate (Sodium Bicarbonate) 650 mg BIDPC PO Last administered on 09:46; Start 10/17/16 at 09:00 Tacrolimus (Prograf) 3 mg Q12H PO Last administered on 10/17/16 02:46; Start 10/17/16 at 02:30; Stop 10/17/16 at 10:41; Status DC Albuterol/ Ipratropium (Duoneb Neb) 1 ampule Q6HR NEB NEB Last administered on 10/18/16 15:23; Start 10/17/16 at 04:00; Stop 10/18/16 at 18:54; Status DC Albuterol/ Ipratropium (Duoneb Neb) 1 ampule Q2HR NEB PRN NEB wheezing; Start 10/17/16 at 02:30 Dextrose (D50w (Vial) Inj) 50 ml UNSCH PRN IV HYPOGLYCEMIA-SEE COMMENTS; Start 10/17/16 at 02:30 Glucagon (Glucagon Inj) 1 mg UNSCH PRN OTHER HYPOGLYCEMIA-SEE COMMENTS; Start 10/17/16 at 02:30 Insulin Aspart (NovoLOG SUPPLEMENTAL SCALE) 1 ACHS SLIDING SCALE SQ Last administered on 10/20/16 05:55; Start 10/17/16 at 07:00 Heparin Sodium (Porcine) 5000 units 5,000 units Q8HR SQ Last administered on 05:58; Start 10/17/16 at 14:00 Vancomycin HCl/ Sodium Chloride (Vancomycin Inj/ NS 250 ml Inj) 250 ml @ 250 mls/hr ONCE ONCE IV Last administered on 10/17/16 09:43; Start 10/17/16 at 10 :00; Stop 10/17/16 at 10:59; Status DC Sodium Polystyrene Sulfonate (Kayexalate Liq) 15 gm ONCE ONCE PO Last administered on 10/17/16 12:54; Start 10/17/16 at 10:30; Stop 10/17/16 at 10:31 ; Status DC Tacrolimus 3 mg 3 mg BID@06,18 PO Last administered on 10/20/16 06:00; Start 10/17/16 at 18:00 Cefepime HCl/ Sodium Chloride (Maxipime Inj/NS Inj) 100 ml @ 200 mls/hr Q24H IV Last administered on 10/18/16 14:14; Start 10/17/16 at 14:00; Stop at 14:48; Status DC Mycophenolate Mofetil 500 mg 500 mg BID@,18 PO Last administered on 05:59; Start 10/17/16 at 18:00 Sodium Bicarbonate/ Sodium Chloride (Sodium Bicarbonate 8.4% Inj/1/2 NS 1000 ml Inj) 1,075 ml @ 100 mls/hr [id number] IV Last administered on 10/19/16 06:08; Start 10/17/16 at 21:00; Stop 10/19/16 at 13:15; Status DC Tolvaptan 15 mg 15 mg ONCE ONCE PO Last administered on 10/17/16 22:06; Start 10/17/16 at 20:00; Stop 10/17/16 at 20:01; Status DC Vancomycin HCl/ Sodium Chloride (Vancomycin Inj/ NS 500 ml Inj) 515 ml @ 250 mls/hr ONCE ONCE IV Last administered on 10/18/16 12:56; Start 10/18/16 at 12 :00; Stop 10/18/16 at 14:03; Status DC Sodium Chloride (Baby Lester Saline 0.65% [facility]/ [place]) 2 drop UNSCH PRN EACH NARE dryness; Start 10/18/16 at 19:00; Stop 10/18/16 at 19:41; Status DC Phenol (Chloraseptic [place]) 2 spray Q2H PRN OROPHARYNG sore throat Last administered on 10/18/16t 22:19; Start 10/18/16 at 19:00 Sodium Chloride 2 spray 2 spray UNSCH PRN NASAL DRYNESS; Start 10/18/16 at 19: 41 Micafungin Sodium/ Sodium Chloride (Mycamine Inj/NS Inj) 100 ml @ 100 mls/hr Q24H IV Last administered on 10/19/16t 17:05; Start 10/19/16 at 16:00 A/P Assessment and Plan Chills -continues to be afebrile. Improved. -May be secondary to toe nail infection is caused of chills. -No signs of infection. -TSH is normal. -Wound cultures grew fungus. Patient on micafungi. Cefepime and vancomycin discontinued. Hyponatremia -patient given dose of [place]. -Improved. Left great toe paronychia -failed outpatient therapy. per Pod doubt that this is caused of chills. -s/p total nail avulsion on 10/18/2016. Status post liver transplant -Dr. Larissa melgar. -His medication was resumed. -Creatinine shows mild improvement today. Patient had a renal ultrasound done which showed no obstruction. -Continue management per his sales contracts analyst. Hyperkalemia -s/o Kayexalate. -resolved. History of congestive heart failure -2 D echo with 35% EF as of 08/20 -BNP and elevated. Lasix held by sales contracts analyst. -Mild trace edema in a clinical area. -Echo done on 10/20/2016 showed ejection fraction 35% and aortic stenosis. Patient is requesting to see his emergency communications dispatcher while he is in the hospital. I do not see any acute issues but he persists on consulted his emergency communications dispatcher so will consult. DVT prophylaxiswith heparin. GI prophylaxis on pantoprazole. Discharge Planning Patient is on and IV antifungal medication and he insists on seeing his emergency communications dispatcher while hospitalized. Priscilla Lee MD Oct 20, 2016 10:49
[2016-10-20] MEDS ORDERED: PILL SPLITTER OTHER PRN (11:15)
--- NOTE | 2016-10-20 11:38 | HHI.IDPN ---
Subjective Subjective Remarks co SOB co sinus congestion no fever 2 D echo with mod to severe Blood from 10/13 growing yeast Nail clx growing mold Antibiotics cefepime IV vancomycin - last on 10/18 Allergies: Coded Allergies: No Known Allergies (Unverified , 10/12/16) Objective . Vital Signs Date Time Temp Pulse Resp B/P Pulse Ox O2 Delivery O2 Flow Rate FiO2 10/20/16 08:00 98.9 71 18 152/69 93 10/20/16 07:58 92 Nasal Cannula 3.00 10/20/16 07:15 Nasal Cannula 2.00 10/20/16 06:09 95 Nasal Cannula 2.00 10/20/16 05:45 Nasal Cannula 2.00 10/20/16 04:48 98.5 74 20 153/70 88 10/20/16 04:00 Room Air 10/20/16 00:38 98.5 76 20 164/76 94 10/20/16 00:00 Room Air 10/19/16 21:22 97.8 71 20 144/85 95 10/19/16 20:00 Room Air 10/19/16 20:00 71 10/19/16 16:16 98.0 60 18 155/72 94 10/19/16 16:00 Room Air 10/19/16 12:16 99.1 65 18 124/60 93 10/19/16 12:00 Room Air 10/19/16 10/19/16 10/20/16 15:00 23:00 07:00 Intake Total 480 ml 840 ml 240 ml Output Total 501 ml 725 ml Balance 480 ml 339 ml -485 ml Intake Oral 480 ml 840 ml 240 ml Output Urine Total 500 ml 725 ml Stool Total 1 ml # Voids 4 # Bowel Movements 0 1 . Laboratory Tests Test 10/19/16 07:28 Sodium Level 134 MEQ/L Potassium Level 4.8 MEQ/L Chloride Level 104 MEQ/L Carbon Dioxide Level 19.2 MEQ/L Anion Gap 11 MEQ/L Blood Urea Nitrogen 77 MG/DL Creatinine 2.72 MG/DL Estimat Glomerular Filtration 24 ML/MIN Rate Random Glucose 228 MG/DL Calcium Level 8.2 MG/DL Total Bilirubin 1.3 MG/DL Aspartate Amino Transf 13 U/L (AST/SGOT) Alanine Aminotransferase 27 U/L (ALT/SGPT) Alkaline Phosphatase 108 U/L Total Protein 6.3 GM/DL Albumin 2.7 GM/DL Microbiology Date/Time Procedure Status Source Growth 10/18/16 12:00 Gram Stain - Final Resulted Wound Toe 10/18/16 12:00 Wound Culture - Preliminary Resulted Mold Species Imaging Last Impressions Renal Ultrasound 10/18/16 0000 Signed Impressions: Service Date/Time: October 20:18 - CONCLUSION: 1. Resistive indices of the transplant kidney have increased slightly in the interim and are now at the upper limits of normal. 2. No acute obstructive uropathy demonstrated. Parenchymal echogenicity within normal limits. Derrek Arriaza MD Liver Ultrasound 10/18/16 0000 Signed Impressions: Service Date/Time: October 20:01 - CONCLUSION: 1. Nonspecific hepatomegaly. 2. 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 3. Atrophied right kidney. Derrek Arriaza MD Chest X-Ray 10/16/16 1730 Signed Impressions: Service Date/Time: Sunday, October 16, 2016 17:54 - CONCLUSION: No evidence of acute cardiopulmonary disease. Derrek Arriaza MD Physical Exam CONSTITUTIONAL/GENERAL: This is an adequately nourished patient, in no apparent distress. TUBES/LINES/DRAINS: LUE AV fistula with good thrill, no e/o infx SKIN: No jaundice, rashes, or lesions. HEENT: no facial edema no conjunctival injections hemorrages CARDIOVASCULAR: Regular rate and rhythm without murmurs, gallops, or rubs. RESPIRATORY/CHEST: Symmetric, unlabored respirations. Clear to auscultation. Breath sounds equal bilaterally. No wheezes, rales, or rhonchi. GASTROINTESTINAL: Abdomen soft, non-tender, nondistended. No hepato-splenomegaly , or palpable masses. No guarding. Bowel sounds present. GENITOURINARY: Without palpable bladder distension. MUSCULOSKELETAL: Extremities without clubbing, cyanosis, or edema R foot L foot with dressing in place no edema LYMPHATICS: No palpable cervical axillae or supraclavicular adenopathy. NEUROLOGICAL: Awake and alert. Motor and sensory grossly within normal limits. Follows commands. Clear speech Moves all extremities. PSYCHIATRIC: No obvious anxiety/depression. no apparent hallucinations or other psychotic thought process. Assessment & Plan Remarks New Fungemia , Karen - source can be valve vs AVF (less likley since it looks completely normal), intraabdominal CHF exacebrbation - 2 D echo with 35% EF as of 08/20 Mod to severe on 2 D echo ? L hallux paronichim, sp naiol removal, clx P - mold in clx / dermatophite cough - serial CXRs improved and showed no infiltrate on today's film FU blood clx untill final fu 2 D echo cont micafungin IV consult cardiology for LILIYA start augmentin - for MSSA mild DFI, sinusitis -pt reports not tolerating clindamycin very well dw Nancy Dixon MD Oct 20, 2016 11:38
--- NOTE | 2016-10-20 11:57 | PD.POD ---
Subjective Podiatric Problems Inflamed left hallux Pain scale used: 0-10 numeric scale Pain score: 0 Remarks Marc is a 66-year-old male who I saw for an abscess of the left foot which went on to heal. He was admitted the other day with fever and chills and it was determined that he may have an infection of the left hallux. Patient is had swelling of the left hallux chronically secondary to osteoarthritis. I ordered a uric acid which was slightly elevated. He had some erythema at the eponychium of left hallux toenail. Nail avulsion was performed and culture of the epionychium was sent which was growing mold most likely a dermatophyte. Patient also had [place] in his blood stream Past Med/Surg/Social History Past Medical History PFS Reviewed: Yes HEENT: REPORTS HX OF: Other HEENT history (Sam's syndrom) Endocrine: REPORTS HX OF: Diabetes mellitus Respiratory: REPORTS HX OF: COPD Genitourinary: REPORTS HX OF: Kidney failure, Other history (kidney transplant) Infectious disease: REPORTS HX OF: Chickenpox, Other inf disease history ( shingles) Psychiatric: REPORTS HX OF: Anxiety Disabilities: REPORTS HX OF: Hearing deficit Past Surgical History Cardiovascular: REPORTS HX OF: Other cardiac surgery Genitourinary: REPORTS HX OF: Other surgery (kidney transplant, stents ) Musculoskeletal: REPORTS HX OF: Other musculoskeletal srg (rt knee) Social History Smoking Status: Former Smoker Review of Systems Notes No changes in his 14 point review of systems exam from the previous visit Objective Vital Signs Vital Signs Date Time Temp Pulse Resp B/P Pulse Ox O2 Delivery O2 Flow Rate FiO2 10/20/16 08:00 98.9 71 18 152/69 93 10/20/16 07:58 92 Nasal Cannula 3.00 10/20/16 07:15 Nasal Cannula 2.00 10/20/16 06:09 95 Nasal Cannula 2.00 10/20/16 05:45 Nasal Cannula 2.00 10/20/16 04:48 98.5 74 20 153/70 88 10/20/16 04:00 Room Air 10/20/16 00:38 98.5 76 20 164/76 94 10/20/16 00:00 Room Air 10/19/16 21:22 97.8 71 20 144/85 95 10/19/16 20:00 Room Air 10/19/16 20:00 71 10/19/16 16:16 98.0 60 18 155/72 94 10/19/16 16:00 Room Air 10/19/16 12:16 99.1 65 18 124/60 93 10/19/16 12:00 Room Air Coded Allergies: No Known Allergies (Unverified , 10/12/16) Medications and IVs Current Medications Sodium Chloride 2 ml 2 ml UNSCH PRN IVF FLUSH AFTER USING IV ACCESS; Start at 17:30; Stop 10/17/16 at 02:00; Status DC Sodium Chloride (NS 500 ml Inj) 500 ml @ 500 mls/hr ONCE ONCE IV Last administered on 10/16/16 17:30; Start 10/16/16 at 17:30; Stop 10/16/16 at 18:29 ; Status DC Morphine Sulfate (Morphine Inj) 4 mg ONCE ONCE IV PUSH Last administered on 18:00; Start 10/16/16 at 18:00; Stop 10/16/16 at 18:01; Status DC Ondansetron HCl (Zofran Inj) 4 mg ONCE ONCE IV PUSH Last administered on 18:00; Start 10/16/16 at 18:00; Stop 10/16/16 at 18:01; Status DC Tacrolimus (Prograf) 3 mg ONCE ONCE PO Last administered on 10/16/16 18:30; Start 10/16/16 at 18:15; Stop 10/16/16 at 18:16; Status DC Acetaminophen (Tylenol) 1,000 mg ONCE ONCE PO Last administered on 10/16/16 18:45; Start 10/16/16 at 18:45; Stop 10/16/16 at 18:46; Status DC Mycophenolate Mofetil 500 mg 500 mg ONCE PO Last administered on 10/16/16 20: 32; Start 10/16/16 at 18:45; Stop 10/17/16 at 10:44; Status DC Piperacillin Sod/ Tazobactam Sod 50 ml @ 100 mls/hr ONCE ONCE IV Last administered on 10/16/16 18:45; Start 10/16/16 at 18:45; Stop 10/17/16 at 13:44 ; Status DC Vancomycin HCl/ Sodium Chloride (Vancomycin Inj/ NS 250 ml Inj) 250 ml @ 250 mls/hr ONCE ONCE IV Last administered on 10/16/16 18:45; Start 10/16/16 at 18 :45; Stop 10/16/16 at 19:44; Status DC Hydromorphone HCl (Dilaudid Pf Inj) 1 mg ONCE ONCE IV PUSH Last administered on 10/16/16 19:15; Start 10/16/16 at 19:15; Stop 10/16/16 at 19:16; Status DC Sodium Chloride (NS Flush) 2 ml UNSCH PRN IV FLUSH FLUSH AFTER USING IV ACCESS ; Start 10/16/16 at 19:30 Sodium Chloride (NS Flush) 2 ml BID IV FLUSH Last administered on 10/20/16 09: 46; Start 10/16/16 at 21:00 Naloxone HCl (Narcan Inj) 0.4 mg UNSCH PRN IV SEE LABEL COMMENTS; Start at 19:30 Hydromorphone HCl 1 mg 1 mg Q4H PRN IV PUSH pain >5 Last administered on 09:52; Start 10/17/16 at 02:00 Piperacillin Sod/ Tazobactam Sod 100 ml @ 200 mls/hr Q6H IV Last administered on 10/17/16 12:56; Start 10/17/16 at 02:00; Stop 10/17/16 at 13:44; Status DC Pharmacy Profile Note (Vancomycin Consult Pharmacy) 0 ml @ 0 mls/hr UNSCH OTHER ; Start 10/17/16 at 02:00; Stop 10/19/16 at 14:48; Status DC Clonidine (Catapres) 0.1 mg DAILY PO Last administered on 10/20/16 09:46; Start 10/17/16 at 09:00 Docusate Sodium (Colace) 100 mg BID PO Last administered on 10/20/16 09:46; Start 10/17/16 at 09:00 Furosemide (Lasix) 20 mg DAILY PO Last administered on 10/20/16 09:46; Start 10/17/16 at 09:00 Isosorbide Mononitrate (Imdur) 30 mg DAILY@07 PO Last administered on 05:59; Start 10/17/16 at 07:00 Labetalol HCl (Trandate) 200 mg BID PO Last administered on 10/20/16 09:45; Start 10/17/16 at 09:00 Lorazepam (Ativan) 3 mg HS PO Last administered on 10/19/16 21:16; Start 10/17 at 21:00 Mycophenolate Mofetil (Cellcept) 500 mg BID PO Last administered on 10/17/16 08:30; Start 10/17/16 at 09:00; Stop 10/17/16 at 16:03; Status DC Nifedipine (Procardia Xl) 30 mg HS PO Last administered on 10/19/16 21:16; Start 10/17/16 at 21:00 Prednisone (Deltasone) 5 mg DAILY PO Last administered on 10/20/16 09:46; Start 10/17/16 at 09:00 Pregabalin (Lyrica) 25 mg TID PO Last administered on 10/20/16 09:46; Start at 09:00 Sodium Bicarbonate (Sodium Bicarbonate) 650 mg BIDPC PO Last administered on 09:46; Start 10/17/16 at 09:00 Tacrolimus (Prograf) 3 mg Q12H PO Last administered on 10/17/16 02:46; Start 10/17/16 at 02:30; Stop 10/17/16 at 10:41; Status DC Albuterol/ Ipratropium (Duoneb Neb) 1 ampule Q6HR NEB NEB Last administered on 10/18/16 15:23; Start 10/17/16 at 04:00; Stop 10/18/16 at 18:54; Status DC Albuterol/ Ipratropium (Duoneb Neb) 1 ampule Q2HR NEB PRN NEB wheezing; Start 10/17/16 at 02:30 Dextrose (D50w (Vial) Inj) 50 ml UNSCH PRN IV HYPOGLYCEMIA-SEE COMMENTS; Start 10/17/16 at 02:30 Glucagon (Glucagon Inj) 1 mg UNSCH PRN OTHER HYPOGLYCEMIA-SEE COMMENTS; Start 10/17/16 at 02:30 Insulin Aspart (NovoLOG SUPPLEMENTAL SCALE) 1 ACHS SLIDING SCALE SQ Last administered on 10/20/16 05:55; Start 10/17/16 at 07:00 Heparin Sodium (Porcine) 5000 units 5,000 units Q8HR SQ Last administered on 05:58; Start 10/17/16 at 14:00 Vancomycin HCl/ Sodium Chloride (Vancomycin Inj/ NS 250 ml Inj) 250 ml @ 250 mls/hr ONCE ONCE IV Last administered on 10/17/16 09:43; Start 10/17/16 at 10 :00; Stop 10/17/16 at 10:59; Status DC Sodium Polystyrene Sulfonate (Kayexalate Liq) 15 gm ONCE ONCE PO Last administered on 10/17/16 12:54; Start 10/17/16 at 10:30; Stop 10/17/16 at 10:31 ; Status DC Tacrolimus 3 mg 3 mg BID@06,18 PO Last administered on 10/20/16 06:00; Start 10/17/16 at 18:00 Cefepime HCl/ Sodium Chloride (Maxipime Inj/NS Inj) 100 ml @ 200 mls/hr Q24H IV Last administered on 10/18/16 14:14; Start 10/17/16 at 14:00; Stop at 14:48; Status DC Mycophenolate Mofetil 500 mg 500 mg BID@,18 PO Last administered on 05:59; Start 10/17/16 at 18:00 Sodium Bicarbonate/ Sodium Chloride (Sodium Bicarbonate 8.4% Inj/1/2 NS 1000 ml Inj) 1,075 ml @ 100 mls/hr [id number] IV Last administered on 10/19/16 06:08; Start 10/17/16 at 21:00; Stop 10/19/16 at 13:15; Status DC Tolvaptan 15 mg 15 mg ONCE ONCE PO Last administered on 10/17/16 22:06; Start 10/17/16 at 20:00; Stop 10/17/16 at 20:01; Status DC Vancomycin HCl/ Sodium Chloride (Vancomycin Inj/ NS 500 ml Inj) 515 ml @ 250 mls/hr ONCE ONCE IV Last administered on 10/18/16 12:56; Start 10/18/16 at 12 :00; Stop 10/18/16 at 14:03; Status DC Sodium Chloride (Baby Dagmar Saline 0.65% Marco Drp/ Berkey) 2 drop UNSCH PRN EACH NARE dryness; Start 10/18/16 at 19:00; Stop 10/18/16 at 19:41; Status DC Phenol (Chloraseptic [place]) 2 spray Q2H PRN OROPHARYNG sore throat Last administered on 10/18/16 22:19; Start 10/18/16 at 19:00 Sodium Chloride 2 spray 2 spray UNSCH PRN NASAL DRYNESS; Start 10/18/16 at 19: 41 Micafungin Sodium/ Sodium Chloride (Mycamine Inj/NS Inj) 100 ml @ 100 mls/hr Q24H IV Last administered on 10/19/16 17:05; Start 10/19/16 at 16:00 Loratadine (Claritin) 5 mg DAILY PO ; Start 10/20/16 at 12:00 Miscellaneous (Pill Splitter) 1 ea UNSCH PRN OTHER SEE LABEL COMMENTS; Start at 11:15 Other Results Laboratory Tests Test 10/19/16 07:28 Sodium Level 134 MEQ/L Potassium Level 4.8 MEQ/L Chloride Level 104 MEQ/L Carbon Dioxide Level 19.2 MEQ/L Anion Gap 11 MEQ/L Blood Urea Nitrogen 77 MG/DL Creatinine 2.72 MG/DL Estimat Glomerular Filtration 24 ML/MIN Rate Random Glucose 228 MG/DL Calcium Level 8.2 MG/DL Total Bilirubin 1.3 MG/DL Aspartate Amino Transf 13 U/L (AST/SGOT) Alanine Aminotransferase 27 U/L (ALT/SGPT) Alkaline Phosphatase 108 U/L Total Protein 6.3 GM/DL Albumin 2.7 GM/DL Microbiology Date/Time Procedure Status Source Growth 10/18/16 12:00 Gram Stain - Final Resulted Wound Toe 10/18/16 12:00 Wound Culture - Preliminary Resulted Mold Species Exam-Podiatry Constitutional General appearance: comfortable Nutritional status: normal Orientation: alert and oriented x3 Dermatological Exam Skin Temp - Right: Within Normal Limits Skin Texture - Right: Within Normal Limits Skin Elasticity - Right: Within Normal Limits Skin Tugor - Right: Within Normal Limits Hair Growth - Right: Within Normal Limits Pigmentation - Right: Within Normal Limits Skin Temp - Left: Within Normal Limits Skin Texture - Left: Within Normal Limits Skin Elasticity - Left: Within Normal Limits Skin Tugor - Left: Within Normal Limits Hair Growth - Left: Within Normal Limits Pigmentation - Left: Within Normal Limits Other: Scars, Surgery,Injury Nail avulsion site of the left hallux is doing well. No signs of infection or cellulitis. Vascular/Lymphatic Exam R Dorsails Pedis: Palpable L Dorsails Pedis: Palpable R Posterior Tibial: Palpable L Posterior Tibial: Palpable Neurologic Exam Details No neurological deficits seen Assessment & Plan Diagnosis: (1) Foot infection Status: Acute (2) DM (diabetes mellitus) Status: Chronic A/P PLAN: The appropriate consent form was obtained. The left hallux was anesthetized with 5 cc of a one-to-one mixture of 2% lidocaine and 0.5% Marcaine. Total nail avulsion was performed. A culture swab was obtained of the proximal epionychium. Gauze dressing was applied. May switch to a Band-Aid tomorrow. I doubt that his toe is the cause of his chills and fever. Patient may be having a gout attack of the left hallux. Continue to follow Problem Qualifiers (1) DM (diabetes mellitus): Qualified Code: E11.42 - Type 2 diabetes mellitus with diabetic polyneuropathy , without long-term current use of insulin Chung Matos DPM Oct 20, 2016 11:57
[2016-10-20] MEDS: LORATADINE 10 MG TAB PO SCH (13:09)
--- NOTE | 2016-10-20 14:48 | HHI.PR ---
Addendum to Inpatient Note Additional Information dw microlab The yeast isolate from 10/13 not growing very well No pseudopodia - chk cryptococcus AG - start fluconazole - will need to monitor his drug levels pretty closely 2/2 interactions with fluconazole lan microlab dw Nancy Ling MD Oct 20, 2016 14:48
[2016-10-20] MEDS: AMOXICILLIN/CLAVULANATE K 500 MG TAB PO SCH ×2 (16:07→20:42)
[2016-10-20] MEDS: MICAFUNGIN INJ 150 MG in SODIUM CHLORIDE 0.9% INJ 100 ML IV SCH (16:09)
--- NOTE | 2016-10-20 17:01 | MB ---
cc: KEMI WHEELER MD DATE OF CONSULTATION 10/20/16 REASON FOR CONSULTATION Two consults were placed, one for LILIYA and another for CHF. HISTORY OF PRESENT ILLNESS Mr. Abbott is a 66-year-old patient of my partner, Dr. Hall. He presented with chest pain and progressive dyspnea on exertion on 10/17/2016. The patient is frustrated as he has had progressive dyspnea since the beginning of the year. He is not able to keep up with his usual activities such as motorcycle riding. He also notes that he has had recurrent infections. ALLERGIES NO KNOWN DRUG ALLERGIES. MEDICATIONS Current, per the record. PAST MEDICAL HISTORY 1. Diabetes, 2. Hypertension, 3. End-stage renal disease with kidney transplant, 4. Hep C, 5. Neuropathy, 6. Gastroesophageal reflux disease, 7. Dysphagia, 8. Sam's esophagus. 9. Also has a cardiomyopathy with an EF of 35%. PAST SURGICAL HISTORY 1. Left ED fistula, 2. Kidney transplant. SOCIAL HISTORY The patient does not drink or smoke. FAMILY HISTORY Noncontributory. REVIEW OF SYSTEMS Except as mentioned in HPI, all 12 systems are negative. PHYSICAL EXAMINATION VITAL SIGNS: Current 98.3, 72, 20, 143/70. GENERAL: He is a well-appearing man who is in no apparent distress. NECK: Free from JVD. LUNGS: Bilaterally clear to auscultation. CARDIOVASCULAR: He has a harsh systolic ejection murmur. No rubs or gallops were appreciated. ABDOMEN: Soft. EXTREMITIES: Free of any edema. LABORATORY DATA Micro results show a toe wound culture with a preliminary positive for mold species. CARDIOLOGY STUDIES Echocardiogram from 10/19/2016 shows mild concentric LVH. There is moderate LV impairment with an EF of 35-40%. There is severe aortic stenosis with a mean gradient of 39 and aortic valve area of 0.88. Echocardiogram from August 2016 does also show an ejection fraction of 35%. Echocardiogram from 04/09/16 does show normal LV function with an EF of 55%. IMPRESSION AND PLAN 1. CHF - the patient does appear to have a cardiomyopathy with an EF of about 35%. This is relatively new since the end of last year. This does also correlate with when he began having progressive symptoms. The etiology is not clear at this point. The fluid management has been per nephrology. SEGUNDO inhibitors are felt relatively contraindicated with his renal insufficiency. I am going to add beta blockade. 2. Evaluation for LILIYA - this does seem reasonable, although he will be at a high risk for events with his severe aortic stenosis. I will leave the ultimate decision to his primary varnish blender, Dr. Hall, and the patient. Lyubov Poole/ /2:00 PM /4:50 PM
[2016-10-20] MEDS: TACROLIMUS 1 MG CAP PO SCH (17:12)
[2016-10-20] MEDS: FLUCONAZOLE 200 MG PREMIX BAG 100 ML IV SCH (17:13)
[2016-10-20] MEDS: NIFEdipine 30 MG SUSTAINED RELEASE TAB PO SCH (20:41)
[2016-10-20] MEDS: LORazepam 1 MG TAB PO SCH (20:41)
[2016-10-21] VITALS (9 sets, daily range): BP systolic 129–170; BP diastolic 67–93; PULSE 59–73; RESP 17–20; TEMP 97.6–99.2; O2SAT 90–100
[2016-10-21] MEDS: INSULIN ASPART SUPPLEMENTAL SCALE SQ SCH ×4 (05:20→21:28)
[2016-10-21] MEDS: TACROLIMUS 1 MG CAP PO SCH ×2 (05:21→17:52)
[2016-10-21] MEDS: HYDROmorphone HCL PF 1 MG/ML VIAL IV PUSH PRN ×3 (05:21→21:07)
[2016-10-21] MEDS: HEPARIN SODIUM - SQ 10,000 UNITS/ML VIAL SQ SCH ×3 (05:21→21:05)
[2016-10-21] MEDS: AMOXICILLIN/CLAVULANATE K 500 MG TAB PO SCH ×3 (05:21→21:06)
[2016-10-21] MEDS: ISOSORBIDE MONONITRATE 30 MG TAB PO SCH (05:21)
[2016-10-21] MEDS: MYCOPHENOLATE MOFETIL 500 MG TAB PO SCH ×2 (05:21→17:52)
[2016-10-21 07:43] LABS: BICARBONATE 20.1 MEQ/L (21.0-32.0); MAGNESIUM 2.4 MG/DL (1.5-2.5); POTASSIUM 5.2 MEQ/L (3.5-5.1)
[2016-10-21] MEDS: LABETALOL HCL 200 MG TAB PO SCH ×2 (09:09→21:06)
[2016-10-21] MEDS: DOCUSATE SODIUM 100 MG CAP PO SCH ×2 (09:09→21:06)
[2016-10-21] MEDS: predniSONE 5 MG TAB PO SCH (09:09)
[2016-10-21] MEDS: SODIUM BICARBONATE 650 MG TAB PO SCH ×2 (09:09→17:52)
[2016-10-21] MEDS: FUROSEMIDE 20 MG TAB PO SCH (09:09)
[2016-10-21] MEDS: PREGABALIN 25 MG CAP PO SCH ×3 (09:09→17:52)
[2016-10-21] MEDS: cloNIDine HCL 0.1 MG TAB PO SCH (09:10)
[2016-10-21] MEDS: SODIUM CHLORIDE 0.9% FLUSH 10 ML FLUSH IV FLUSH SCH ×2 (09:10→21:06)
[2016-10-21] MEDS: LORATADINE 10 MG TAB PO SCH (09:10)
--- NOTE | 2016-10-21 09:25 | HHI.NPPN ---
Subjective History of Present Illness 66 year old with kidney transplant, HTN.DM not feeling well, has Left foot infection Additional Remarks Renal function is better. All the notes were reviewed. On Diflucan. Also on Augmentin and Micafungin. Complains of pain in the right foot, lower leg and ankle. Review of Systems General Constitutional: Fatigue Objective Data Data 10/20/16 10/21/16 19:00 07:00 Intake Total 480 ml 240 ml Output Total 500 ml 1150 ml Balance -20 ml -910 ml Intake Oral 480 ml 240 ml IV Total 0 ml Output Urine Total 500 ml 1150 ml # Bowel Movements 1 0 Vital Signs Date Time Temp Pulse Resp B/P Pulse Ox O2 Delivery O2 Flow Rate FiO2 10/21/16 08:00 97.6 63 20 150/70 90 10/21/16 06:00 98.1 64 18 129/76 92 10/21/16 04:00 Room Air 10/21/16 00:00 99.2 66 20 166/73 93 10/21/16 00:00 Room Air 10/20/16 20:00 98.4 67 20 166/73 98 10/20/16 20:00 74 10/20/16 20:00 Room Air 10/20/16 16:00 98.0 63 20 162/73 93 10/20/16 12:00 98.3 72 20 143/70 91 -: 10/18/16 0635 10/21/16 0655 Physical Exam General Appearance: Well Developed, Well Nourished Neck Neck Exam: Neck Supple Pulmonary Resp Exam: Clear Bilaterally, Breath Sounds Equal Cardiology CV Exam: Regular, Normal Sinus Rhythm Gastrointestinal/Abdomen GI Exam: Soft, Non-Tender, Bowel Sounds Present Extremeties Extremities Exam: Moderate Edema Neurologic Neuro Exam: Alert Assessment/Plan Problem List: (1) Kidney transplant status, cadaveric Plan: Renal function is better. On CellCept, Prednisone and Tacrolimus. (2) DM (diabetes mellitus) Plan: Continue monitor blood glucose (3) Hypertension Plan: BP is stable. Cardiology note reviewed. Low EF is noted. (4) Sepsis Plan: ID following. On Micafungin. Discussed with Dr. Centeno. She will start Diflucan. Monitor Prograf level. Plan patient thinks that he has gout. On examin, he does not have joint swelling, no erythema over the right foot, ankle, and leg. No tenderness. I will order uric acid. Problem Qualifiers (1) DM (diabetes mellitus): Qualified Code: E11.42 - Type 2 diabetes mellitus with diabetic polyneuropathy , without long-term current use of insulin Thomas Cox MD Oct 21, 2016 09:25
--- NOTE | 2016-10-21 10:15 | HHI.PR ---
Subjective Remarks Follow-up for multiple complaints Today he does not complain about a sinus headache. He now complains about pain with ambulation. He stated that if he touches his feet or ankles there is no pain. When he walks he has pain in his feet and his Achilles area. Otherwise no other complaints. Denies any chills. Objective Vitals Vital Signs Date Time Temp Pulse Resp B/P Pulse Ox O2 Delivery O2 Flow Rate FiO2 10/21/16 08:00 97.6 63 20 150/70 90 10/21/16 06:00 98.1 64 18 129/76 92 10/21/16 04:00 Room Air 10/21/16 00:00 99.2 66 20 166/73 93 10/21/16 00:00 Room Air 10/20/16 20:00 98.4 67 20 166/73 98 10/20/16 20:00 74 10/20/16 20:00 Room Air 10/20/16 16:00 98.0 63 20 162/73 93 10/20/16 12:00 98.3 72 20 143/70 91 I/O 10/20/16 10/20/16 10/20/16 10/21/16 10/21/16 10/21/16 07:00 15:00 23:00 07:00 15:00 23:00 Intake Total 240 ml 480 ml 240 ml Output Total 725 ml 500 ml 800 ml 350 ml Balance -485 ml -20 ml -800 ml -110 ml Intake Oral 240 ml 480 ml 240 ml IV Total 0 ml Output Urine Total 725 ml 500 ml 800 ml 350 ml # Bowel Movements 1 1 0 Result Diagram: 10/18/16 0635 10/21/16 0655 Objective Remarks GENERAL: This is a well-nourished, well-developed patient in NAD NECK: Trachea midline. No JVD Supple, nontender, no meningeal signs. CARDIOVASCULAR: Regular rate and rhythm without gallops, or rubs. Systolic murmur at aortic area RESPIRATORY: Clear to auscultation. Breath sounds equal bilaterally. No wheezes , rales, or rhonchi. GASTROINTESTINAL: Abdomen soft, non-tender, nondistended No guarding. MUSCULOSKELETAL: left big toe with swelling that has improved. Other than his left toe infection examined the foot and ankle are relatively normal. He full range of motion. Medications and IVs Current Medications Sodium Chloride 2 ml 2 ml UNSCH PRN IVF FLUSH AFTER USING IV ACCESS; Start at 17:30; Stop 10/17/16 at 02:00; Status DC Sodium Chloride (NS 500 ml Inj) 500 ml @ 500 mls/hr ONCE ONCE IV Last administered on 10/16/16 17:30; Start 10/16/16 at 17:30; Stop 10/16/16 at 18:29 ; Status DC Morphine Sulfate (Morphine Inj) 4 mg ONCE ONCE IV PUSH Last administered on 18:00; Start 10/16/16 at 18:00; Stop 10/16/16 at 18:01; Status DC Ondansetron HCl (Zofran Inj) 4 mg ONCE ONCE IV PUSH Last administered on 18:00; Start 10/16/16 at 18:00; Stop 10/16/16 at 18:01; Status DC Tacrolimus (Prograf) 3 mg ONCE ONCE PO Last administered on 10/16/16 18:30; Start 10/16/16 at 18:15; Stop 10/16/16 at 18:16; Status DC Acetaminophen (Tylenol) 1,000 mg ONCE ONCE PO Last administered on 10/16/16 18:45; Start 10/16/16 at 18:45; Stop 10/16/16 at 18:46; Status DC Mycophenolate Mofetil 500 mg 500 mg ONCE PO Last administered on 10/16/16 20: 32; Start 10/16/16 at 18:45; Stop 10/17/16 at 10:44; Status DC Piperacillin Sod/ Tazobactam Sod 50 ml @ 100 mls/hr ONCE ONCE IV Last administered on 10/16/16 18:45; Start 10/16/16 at 18:45; Stop 10/17/16 at 13:44 ; Status DC Vancomycin HCl/ Sodium Chloride (Vancomycin Inj/ NS 250 ml Inj) 250 ml @ 250 mls/hr ONCE ONCE IV Last administered on 10/16/16 18:45; Start 10/16/16 at 18 :45; Stop 10/16/16 at 19:44; Status DC Hydromorphone HCl (Dilaudid Pf Inj) 1 mg ONCE ONCE IV PUSH Last administered on 10/16/16 19:15; Start 10/16/16 at 19:15; Stop 10/16/16 at 19:16; Status DC Sodium Chloride (NS Flush) 2 ml UNSCH PRN IV FLUSH FLUSH AFTER USING IV ACCESS ; Start 10/16/16 at 19:30 Sodium Chloride (NS Flush) 2 ml BID IV FLUSH Last administered on 10/21/16 09: 10; Start 10/16/16 at 21:00 Naloxone HCl (Narcan Inj) 0.4 mg UNSCH PRN IV SEE LABEL COMMENTS; Start at 19:30 Hydromorphone HCl 1 mg 1 mg Q4H PRN IV PUSH pain >5 Last administered on 05:21; Start 10/17/16 at 02:00 Piperacillin Sod/ Tazobactam Sod 100 ml @ 200 mls/hr Q6H IV Last administered on 10/17/16 12:56; Start 10/17/16 at 02:00; Stop 10/17/16 at 13:44; Status DC Pharmacy Profile Note (Vancomycin Consult Pharmacy) 0 ml @ 0 mls/hr UNSCH OTHER ; Start 10/17/16 at 02:00; Stop 10/19/16 at 14:48; Status DC Clonidine (Catapres) 0.1 mg DAILY PO Last administered on 10/21/16 09:10; Start 10/17/16 at 09:00 Docusate Sodium (Colace) 100 mg BID PO Last administered on 10/21/16 09:09; Start 10/17/16 at 09:00 Furosemide (Lasix) 20 mg DAILY PO Last administered on 10/21/16 09:09; Start 10/17/16 at 09:00 Isosorbide Mononitrate (Imdur) 30 mg DAILY@07 PO Last administered on 05:21; Start 10/17/16 at 07:00 Labetalol HCl (Trandate) 200 mg BID PO Last administered on 10/21/16 09:09; Start 10/17/16 at 09:00 Lorazepam (Ativan) 3 mg HS PO Last administered on 10/20/16 20:41; Start 10/17 at 21:00 Mycophenolate Mofetil (Cellcept) 500 mg BID PO Last administered on 10/17/16 08:30; Start 10/17/16 at 09:00; Stop 10/17/16 at 16:03; Status DC Nifedipine (Procardia Xl) 30 mg HS PO Last administered on 10/20/16 20:41; Start 10/17/16 at 21:00 Prednisone (Deltasone) 5 mg DAILY PO Last administered on 10/21/16 09:09; Start 10/17/16 at 09:00 Pregabalin (Lyrica) 25 mg TID PO Last administered on 10/21/16 09:09; Start at 09:00 Sodium Bicarbonate (Sodium Bicarbonate) 650 mg BIDPC PO Last administered on 09:09; Start 10/17/16 at 09:00 Tacrolimus (Prograf) 3 mg Q12H PO Last administered on 10/17/16 02:46; Start 10/17/16 at 02:30; Stop 10/17/16 at 10:41; Status DC Albuterol/ Ipratropium (Duoneb Neb) 1 ampule Q6HR NEB NEB Last administered on 10/18/16 15:23; Start 10/17/16 at 04:00; Stop 10/18/16 at 18:54; Status DC Albuterol/ Ipratropium (Duoneb Neb) 1 ampule Q2HR NEB PRN NEB wheezing; Start 10/17/16 at 02:30 Dextrose (D50w (Vial) Inj) 50 ml UNSCH PRN IV HYPOGLYCEMIA-SEE COMMENTS; Start 10/17/16 at 02:30 Glucagon (Glucagon Inj) 1 mg UNSCH PRN OTHER HYPOGLYCEMIA-SEE COMMENTS; Start 10/17/16 at 02:30 Insulin Aspart (NovoLOG SUPPLEMENTAL SCALE) 1 ACHS SLIDING SCALE SQ Last administered on 10/21/16 05:20; Start 10/17/16 at 07:00 Heparin Sodium (Porcine) 5000 units 5,000 units Q8HR SQ Last administered on 05:21; Start 10/17/16 at 14:00 Vancomycin HCl/ Sodium Chloride (Vancomycin Inj/ NS 250 ml Inj) 250 ml @ 250 mls/hr ONCE ONCE IV Last administered on 10/17/16 09:43; Start 10/17/16 at 10 :00; Stop 10/17/16 at 10:59; Status DC Sodium Polystyrene Sulfonate (Kayexalate Liq) 15 gm ONCE ONCE PO Last administered on 10/17/16 12:54; Start 10/17/16 at 10:30; Stop 10/17/16 at 10:31 ; Status DC Tacrolimus 3 mg 3 mg BID@06,18 PO Last administered on 10/20/16 06:00; Start 10/17/16 at 18:00; Stop 10/20/16 at 14:19; Status DC Cefepime HCl/ Sodium Chloride (Maxipime Inj/NS Inj) 100 ml @ 200 mls/hr Q24H IV Last administered on 10/18/16 14:14; Start 10/17/16 at 14:00; Stop at 14:48; Status DC Mycophenolate Mofetil 500 mg 500 mg BID@0618 PO Last administered on 05:21; Start 10/17/16 at 18:00 Sodium Bicarbonate/ Sodium Chloride (Sodium Bicarbonate 8.4% Inj/1/2 NS 1000 ml Inj) 1,075 ml @ 100 mls/hr [id number] IV Last administered on 10/19/16 06:08; Start 10/17/16 at 21:00; Stop 10/19/16 at 13:15; Status DC Tolvaptan 15 mg 15 mg ONCE ONCE PO Last administered on 10/17/16 22:06; Start 10/17/16 at 20:00; Stop 10/17/16 at 20:01; Status DC Vancomycin HCl/ Sodium Chloride (Vancomycin Inj/ NS 500 ml Inj) 515 ml @ 250 mls/hr ONCE ONCE IV Last administered on 10/18/16 12:56; Start 10/18/16 at 12 :00; Stop 10/18/16 at 14:03; Status DC Sodium Chloride (Baby [place] Saline 0.65% [facility] [address]/ [place]) 2 drop UNSCH PRN EACH NARE dryness; Start 10/18/16 at 19:00; Stop 10/18/16 at 19:41; Status DC Phenol (Chloraseptic [place]) 2 spray Q2H PRN OROPHARYNG sore throat Last administered on 10/18/16 22:19; Start 10/18/16 at 19:00 Sodium Chloride 2 spray 2 spray UNSCH PRN NASAL DRYNESS; Start 10/18/16 at 19: 41 Micafungin Sodium/ Sodium Chloride (Mycamine Inj/NS Inj) 100 ml @ 100 mls/hr Q24H IV Last administered on 10/20/16 16:09; Start 10/19/16 at 16:00 Loratadine (Claritin) 5 mg DAILY PO Last administered on 10/21/16 09:10; Start 10/20/16 at 12:00 Miscellaneous (Pill Splitter) 1 ea UNSCH PRN OTHER SEE LABEL COMMENTS; Start at 11:15 Amoxicillin/ Clavulanate Potassium (Augmentin) 500 mg Q8HR PO Last administered on 10/21/16 05:21; Start 10/20/16 at 14:00 Tacrolimus 3 mg 3 mg BID@06,18 PO Last administered on 10/21/16 05:21; Start 10/20/16 at 18:00 Fluconazole/ Sodium Chloride (Diflucan 200 Mg Premix Bag) 100 ml @ 100 mls/hr Q24H IV Last administered on 10/20/16 17:13; Start 10/20/16 at 17:00 A/P Assessment and Plan Fungemia -Treated with Micafungi and Diflucan. -Positive wound cultures and the toenail. -Infectious disease is following and managing. -So far current cultures are negative. Hyponatremia -patient given dose of Samsca. -Improved. Left great toe paronychia -failed outpatient therapy. per Pod doubt that this is caused of chills. -s/p total nail avulsion on 10/18/2016. Status post liver transplant -Dr. Larissa melgar. -His medication was resumed. -renal ultrasound showed no obstruction. -Being managed by prevocational/rehabilitation counselor. Continues to improve. -Continue management per his prevocational/rehabilitation counselor. Hyperkalemia -s/o Kayexalate. -resolved. Sinusitis -Patient is on Augmentin. Claritin and nasal saline spray. History of congestive heart failure -2 D echo with 35% EF as of 08/20 -BNP and elevated. Lasix held by prevocational/rehabilitation counselor. -Mild trace edema in a clinical area. -Echo done on 10/20/2016 showed ejection fraction 35% and aortic stenosis. -Ramp Agent consulted and Dr. Hornstein will do LILIYA> DVT prophylaxiswith heparin. GI prophylaxis on pantoprazole. Discharge Planning Patient is on and IV antifungal medication and he insists on seeing his roll capper while hospitalized. Priscilla Lee MD Oct 21, 2016 10:15
[2016-10-21 11:58] LABS: URIC ACID 7.9 MG/DL (2.6-7.2)
--- NOTE | 2016-10-21 14:37 | PD.CARD.PN ---
Subjective Subjective Remarks Pt without complaints Objective Medications Current Medications Medications (Trade) Dose Ordered Sig/Rai Route Start Time Stop Time Status Last Admin (NS Flush) 2 ml UNSCH PRN IV FLUSH 10/16/16 19:30 (NS Flush) 2 ml BID IV FLUSH 10/16/16 21:00 10/21/16 09:10 (Narcan Inj) 0.4 mg UNSCH PRN IV 10/16/16 19:30 (Dilaudid Pf Inj) 1 mg Q4H PRN IV PUSH 10/17/16 02:00 10/21/16 05:21 (Catapres) 0.1 mg DAILY PO 10/17/16 09:00 10/21/16 09:10 (Colace) 100 mg BID PO 10/17/16 09:00 10/21/16 09:09 (Lasix) 20 mg DAILY PO 10/17/16 09:00 10/21/16 09:09 (Imdur) 30 mg DAILY@07 PO 10/17/16 07:00 10/21/16 05:21 (Trandate) 200 mg BID PO 10/17/16 09:00 10/21/16 09:09 (Ativan) 3 mg HS PO 10/17/16 21:00 10/20/16 20:41 (Procardia Xl) 30 mg HS PO 10/17/16 21:00 10/20/16 20:41 (Deltasone) 5 mg DAILY PO 10/17/16 09:00 10/21/16 09:09 (Lyrica) 25 mg TID PO 10/17/16 09:00 10/21/16 13:05 (Sodium Bicarbonate) 650 mg BIDPC PO 10/17/16 09:00 10/21/16 09:09 (D50w (Vial) Inj) 50 ml UNSCH PRN IV 10/17/16 02:30 (Glucagon Inj) 1 mg UNSCH PRN OTHER 10/17/16 02:30 (Heparin Inj) 5,000 units Q8HR SQ 10/17/16 14:00 10/21/16 13:05 (Cellcept) 500 mg BID@06,18 PO 10/17/16 18:00 10/21/16 05:21 (Chloraseptic [place]) 2 spray Q2H PRN OROPHARYNG 10/18/16 19:00 10/18/16 22:19 Sodium Chloride 2 spray 2 spray UNSCH PRN NASAL 10/18/16 19:41 (Mycamine Inj/NS Inj) 100 ml @ 100 mls/hr Q24H IV 10/19/16 16:00 10/20/16 16:09 (Claritin) 5 mg DAILY PO 10/20/16 12:00 10/21/16 09:10 (Pill Splitter) 1 ea UNSCH PRN OTHER 10/20/16 11:15 (Augmentin) 500 mg Q8HR PO 10/20/16 14:00 10/21/16 13:05 Tacrolimus 3 mg 3 mg BID@06,18 PO 10/20/16 18:00 10/21/16 05:21 (Diflucan 200 Mg Premix Bag) 100 ml @ 100 mls/hr Q24H IV 10/20/16 17:00 10/20/16 17:13 Vital Signs / I&O Vital Signs Date Time Temp Pulse Resp B/P Pulse Ox O2 Delivery O2 Flow Rate FiO2 10/21/16 12:00 97.7 60 18 146/67 97 10/21/16 08:20 66 10/21/16 08:00 97.6 63 20 150/70 90 10/21/16 07:45 95 21 10/21/16 07:15 Room Air 10/21/16 06:00 98.1 64 18 129/76 92 10/21/16 04:00 Room Air 10/21/16 00:00 99.2 66 20 166/73 93 10/21/16 00:00 Room Air 10/20/16 20:00 98.4 67 20 166/73 98 10/20/16 20:00 74 10/20/16 20:00 Room Air 10/20/16 16:00 98.0 63 20 162/73 93 I/O 10/20/16 10/20/16 10/20/16 10/21/16 10/21/16 10/21/16 07:00 15:00 23:00 07:00 15:00 23:00 Intake Total 240 ml 480 ml 240 ml Output Total 725 ml 500 ml 800 ml 350 ml Balance -485 ml -20 ml -800 ml -110 ml Intake Oral 240 ml 480 ml 240 ml IV Total 0 ml Output Urine Total 725 ml 500 ml 800 ml 350 ml # Bowel Movements 1 1 0 Physical Exam GENERAL: Well developed, well nourished. No acute distress. HEENT: Jugular venous pressure is normal. CHEST: Lungs clear to auscultation bilaterally. Unlabored respiratory effort. CARDIAC: Regular rate and rhythm, harsh DUNCAN ABDOMEN: Soft, nontender, no hepatosplenomegaly. Bowel sounds present. EXTREMITIES: No clubbing, cyanosis, or edema. Laboratory Laboratory Tests Test 10/21/16 06:55 Sodium Level 133 MEQ/L Potassium Level 5.2 MEQ/L Chloride Level 104 MEQ/L Carbon Dioxide Level 20.1 MEQ/L Anion Gap 9 MEQ/L Blood Urea Nitrogen 65 MG/DL Creatinine 2.34 MG/DL Estimat Glomerular Filtration 28 ML/MIN Rate Random Glucose 275 MG/DL Uric Acid 7.9 MG/DL Calcium Level 9.1 MG/DL Magnesium Level 2.4 MG/DL Assessment and Plan Assessment and Plan 1. CHF - acut systolic failure -fluid management per nephrology - on BB, marc contraindicated 2. Evaluation for LILIYA -pt discussed further with Dr Centeno...she would like to hold off on LILIYA until micro is resulted/final as a different work up may be required depending on the pathogen 3. - seemingly stable 4. s/p renal transplant- per nephrology Available PRN---please reconsult if needed for LILIYA Jocelyn Gonzalez MD Oct 21, 2016 14:37
[2016-10-21] MEDS: MICAFUNGIN INJ 150 MG in SODIUM CHLORIDE 0.9% INJ 100 ML IV SCH (16:25)
[2016-10-21] MEDS: FLUCONAZOLE 200 MG PREMIX BAG 100 ML IV SCH (17:50)
--- NOTE | 2016-10-21 18:08 | HHI.PR ---
Addendum to Inpatient Note Additional Information dw Dr Carlos kaba will wait ID on yeast, will need LILIYA if non cryptococcal yeast Nancy Centeno MD Oct 21, 2016 18:08
[2016-10-21] MEDS: LORazepam 1 MG TAB PO SCH (21:06)
[2016-10-21] MEDS: NIFEdipine 30 MG SUSTAINED RELEASE TAB PO SCH (21:07)
[2016-10-22] VITALS (8 sets, daily range): BP systolic 139–162; BP diastolic 63–80; PULSE 61–68; RESP 18–20; TEMP 96–98.8; O2SAT 92–99
[2016-10-22] MEDS: ISOSORBIDE MONONITRATE 30 MG TAB PO SCH (05:44)
[2016-10-22] MEDS: AMOXICILLIN/CLAVULANATE K 500 MG TAB PO SCH ×3 (05:44→21:16)
[2016-10-22] MEDS: HEPARIN SODIUM - SQ 10,000 UNITS/ML VIAL SQ SCH ×3 (05:44→21:17)
[2016-10-22] MEDS: MYCOPHENOLATE MOFETIL 500 MG TAB PO SCH ×2 (05:44→18:06)
[2016-10-22] MEDS: TACROLIMUS 1 MG CAP PO SCH ×2 (05:44→18:06)
[2016-10-22] MEDS: INSULIN ASPART SUPPLEMENTAL SCALE SQ SCH ×4 (05:55→21:13)
[2016-10-22] MEDS: LORATADINE 10 MG TAB PO SCH (07:56)
[2016-10-22] MEDS: LABETALOL HCL 200 MG TAB PO SCH ×2 (07:56→21:07)
[2016-10-22] MEDS: SODIUM BICARBONATE 650 MG TAB PO SCH ×2 (07:56→18:06)
[2016-10-22] MEDS: predniSONE 5 MG TAB PO SCH (07:57)
[2016-10-22] MEDS: cloNIDine HCL 0.1 MG TAB PO SCH (07:57)
[2016-10-22] MEDS: DOCUSATE SODIUM 100 MG CAP PO SCH ×2 (07:57→21:07)
[2016-10-22] MEDS: FUROSEMIDE 20 MG TAB PO SCH ×2 (07:57→16:14)
[2016-10-22] MEDS: PREGABALIN 25 MG CAP PO SCH ×3 (07:57→18:06)
[2016-10-22] MEDS: SODIUM CHLORIDE 0.9% FLUSH 10 ML FLUSH IV FLUSH SCH ×2 (07:57→21:08)
[2016-10-22 08:47] LABS: BICARBONATE 17.9 MEQ/L (21.0-32.0); POTASSIUM 5.4 MEQ/L (3.5-5.1)
--- NOTE | 2016-10-22 11:23 | HHI.PR ---
Subjective Remarks Follow-up for fungal infection and foot pain Patient stated that he feels "awful." He stated that yesterday he was walking more and had more swelling of both foot. He is complaining of calf pain. Patient has been ambulating. Patient stated that he is on 18 units of Lantus at night. He is also on NovoLog insulin sliding scale at home. Patient also requesting to be on his home dose of Lasix. Objective Vitals Vital Signs Date Time Temp Pulse Resp B/P Pulse Ox O2 Delivery O2 Flow Rate FiO2 10/22/16 09:35 97 21 10/22/16 08:20 65 10/22/16 08:20 Room Air 10/22/16 08:00 98.8 68 18 139/63 97 10/22/16 04:00 98.1 64 19 145/78 99 10/22/16 04:00 Room Air 10/22/16 00:30 97.9 61 19 141/80 99 10/22/16 00:00 Room Air 10/21/16 21:45 98.1 59 17 160/93 100 10/21/16 21:00 Room Air 10/21/16 20:00 73 10/21/16 16:00 98.1 67 20 170/75 97 10/21/16 12:00 97.7 60 18 146/67 97 I/O 10/21/16 10/21/16 10/21/16 10/22/16 10/22/16 10/22/16 07:00 15:00 23:00 07:00 15:00 23:00 Intake Total 240 ml 960 ml 975 ml 500 ml Output Total 350 ml 1150 ml 500 ml 500 ml Balance -110 ml -190 ml 475 ml 0 ml Intake Oral 240 ml 960 ml 975 ml 500 ml IV Total 0 ml Output Urine Total 350 ml 1150 ml 500 ml 500 ml # Voids 3 # Bowel Movements 0 0 0 Result Diagram: 10/18/16 0635 10/22/16 0731 Objective Remarks GENERAL: This is a well-nourished, well-developed patient in NAD NECK: Trachea midline. No JVD Supple, nontender, no meningeal signs. CARDIOVASCULAR: Regular rate and rhythm without gallops, or rubs. Systolic murmur at aortic area RESPIRATORY: Clear to auscultation. Breath sounds equal bilaterally. No wheezes , rales, or rhonchi. GASTROINTESTINAL: Abdomen soft, non-tender, nondistended No guarding. MUSCULOSKELETAL: left big toe with swelling that has improved. B/L swelling of foot L>>R. +calf pain but no swelling of calf. Medications and IVs Current Medications Sodium Chloride 2 ml 2 ml UNSCH PRN IVF FLUSH AFTER USING IV ACCESS; Start at 17:30; Stop 10/17/16 at 02:00; Status DC Sodium Chloride (NS 500 ml Inj) 500 ml @ 500 mls/hr ONCE ONCE IV Last administered on 10/16/16 17:30; Start 10/16/16 at 17:30; Stop 10/16/16 at 18:29 ; Status DC Morphine Sulfate (Morphine Inj) 4 mg ONCE ONCE IV PUSH Last administered on 18:00; Start 10/16/16 at 18:00; Stop 10/16/16 at 18:01; Status DC Ondansetron HCl (Zofran Inj) 4 mg ONCE ONCE IV PUSH Last administered on 18:00; Start 10/16/16 at 18:00; Stop 10/16/16 at 18:01; Status DC Tacrolimus (Prograf) 3 mg ONCE ONCE PO Last administered on 10/16/16 18:30; Start 10/16/16 at 18:15; Stop 10/16/16 at 18:16; Status DC Acetaminophen (Tylenol) 1,000 mg ONCE ONCE PO Last administered on 10/16/16 18:45; Start 10/16/16 at 18:45; Stop 10/16/16 at 18:46; Status DC Mycophenolate Mofetil 500 mg 500 mg ONCE PO Last administered on 10/16/16 20: 32; Start 10/16/16 at 18:45; Stop 10/17/16 at 10:44; Status DC Piperacillin Sod/ Tazobactam Sod 50 ml @ 100 mls/hr ONCE ONCE IV Last administered on 10/16/16 18:45; Start 10/16/16 at 18:45; Stop 10/17/16 at 13:44 ; Status DC Vancomycin HCl/ Sodium Chloride (Vancomycin Inj/ NS 250 ml Inj) 250 ml @ 250 mls/hr ONCE ONCE IV Last administered on 10/16/16 18:45; Start 10/16/16 at 18 :45; Stop 10/16/16 at 19:44; Status DC Hydromorphone HCl (Dilaudid Pf Inj) 1 mg ONCE ONCE IV PUSH Last administered on 10/16/16 19:15; Start 10/16/16 at 19:15; Stop 10/16/16 at 19:16; Status DC Sodium Chloride (NS Flush) 2 ml UNSCH PRN IV FLUSH FLUSH AFTER USING IV ACCESS ; Start 10/16/16 at 19:30 Sodium Chloride (NS Flush) 2 ml BID IV FLUSH Last administered on 10/22/16 07: 57; Start 10/16/16 at 21:00 Naloxone HCl (Narcan Inj) 0.4 mg UNSCH PRN IV SEE LABEL COMMENTS; Start at 19:30 Hydromorphone HCl 1 mg 1 mg Q4H PRN IV PUSH pain >5 Last administered on 21:07; Start 10/17/16 at 02:00; Stop 10/22/16 at 11:08; Status DC Piperacillin Sod/ Tazobactam Sod 100 ml @ 200 mls/hr Q6H IV Last administered on 10/17/16 12:56; Start 10/17/16 at 02:00; Stop 10/17/16 at 13:44; Status DC Pharmacy Profile Note (Vancomycin Consult Pharmacy) 0 ml @ 0 mls/hr UNSCH OTHER ; Start 10/17/16 at 02:00; Stop 10/19/16 at 14:48; Status DC Clonidine (Catapres) 0.1 mg DAILY PO Last administered on 10/22/16 07:57; Start 10/17/16 at 09:00 Docusate Sodium (Colace) 100 mg BID PO Last administered on 10/22/16 07:57; Start 10/17/16 at 09:00 Furosemide (Lasix) 20 mg DAILY PO Last administered on 10/22/16 07:57; Start 10/17/16 at 09:00 Isosorbide Mononitrate (Imdur) 30 mg DAILY@07 PO Last administered on 05:44; Start 10/17/16 at 07:00 Labetalol HCl (Trandate) 200 mg BID PO Last administered on 10/22/16 07:56; Start 10/17/16 at 09:00 Lorazepam (Ativan) 3 mg HS PO Last administered on 10/21/16 21:06; Start 10/17 at 21:00 Mycophenolate Mofetil (Cellcept) 500 mg BID PO Last administered on 10/17/16 08:30; Start 10/17/16 at 09:00; Stop 10/17/16 at 16:03; Status DC Nifedipine (Procardia Xl) 30 mg HS PO Last administered on 10/21/16 21:07; Start 10/17/16 at 21:00 Prednisone (Deltasone) 5 mg DAILY PO Last administered on 10/22/16 07:57; Start 10/17/16 at 09:00 Pregabalin (Lyrica) 25 mg TID PO Last administered on 10/22/16 07:57; Start at 09:00 Sodium Bicarbonate (Sodium Bicarbonate) 650 mg BIDPC PO Last administered on 07:56; Start 10/17/16 at 09:00 Tacrolimus (Prograf) 3 mg Q12H PO Last administered on 10/17/16 02:46; Start 10/17/16 at 02:30; Stop 10/17/16 at 10:41; Status DC Albuterol/ Ipratropium (Duoneb Neb) 1 ampule Q6HR NEB NEB Last administered on 10/18/16 15:23; Start 10/17/16 at 04:00; Stop 10/18/16 at 18:54; Status DC Albuterol/ Ipratropium (Duoneb Neb) 1 ampule Q2HR NEB PRN NEB wheezing; Start 10/17/16 at 02:30 Dextrose (D50w (Vial) Inj) 50 ml UNSCH PRN IV HYPOGLYCEMIA-SEE COMMENTS; Start 10/17/16 at 02:30 Glucagon (Glucagon Inj) 1 mg UNSCH PRN OTHER HYPOGLYCEMIA-SEE COMMENTS; Start 10/17/16 at 02:30 Insulin Aspart (NovoLOG SUPPLEMENTAL SCALE) 1 ACHS SLIDING SCALE SQ Last administered on 10/22/16 05:55; Start 10/17/16 at 07:00 Heparin Sodium (Porcine) 5000 units 5,000 units Q8HR SQ Last administered on 05:44; Start 10/17/16 at 14:00 Vancomycin HCl/ Sodium Chloride (Vancomycin Inj/ NS 250 ml Inj) 250 ml @ 250 mls/hr ONCE ONCE IV Last administered on 10/17/16 09:43; Start 10/17/16 at 10 :00; Stop 10/17/16 at 10:59; Status DC Sodium Polystyrene Sulfonate (Kayexalate Liq) 15 gm ONCE ONCE PO Last administered on 10/17/16 12:54; Start 10/17/16 at 10:30; Stop 10/17/16 at 10:31 ; Status DC Tacrolimus 3 mg 3 mg BID@06,18 PO Last administered on 10/20/16 06:00; Start 10/17/16 at 18:00; Stop 10/20/16 at 14:19; Status DC Cefepime HCl/ Sodium Chloride (Maxipime Inj/NS Inj) 100 ml @ 200 mls/hr Q24H IV Last administered on 10/18/16 14:14; Start 10/17/16 at 14:00; Stop at 14:48; Status DC Mycophenolate Mofetil 500 mg 500 mg BID@06,18 PO Last administered on 05:44; Start 10/17/16 at 18:00 Sodium Bicarbonate/ Sodium Chloride (Sodium Bicarbonate 8.4% Inj/1/2 NS 1000 ml Inj) 1,075 ml @ 100 mls/hr [id number] IV Last administered on 10/19/16 06:08; Start 10/17/16 at 21:00; Stop 10/19/16 at 13:15; Status DC Tolvaptan 15 mg 15 mg ONCE ONCE PO Last administered on 10/17/16 22:06; Start 10/17/16 at 20:00; Stop 10/17/16 at 20:01; Status DC Vancomycin HCl/ Sodium Chloride (Vancomycin Inj/ NS 500 ml Inj) 515 ml @ 250 mls/hr ONCE ONCE IV Last administered on 10/18/16 12:56; Start 10/18/16 at 12 :00; Stop 10/18/16 at 14:03; Status DC Sodium Chloride ([place] Saline 0.65% [facility]/ [place]) 2 drop UNSCH PRN EACH NARE dryness; Start 10/18/16 at 19:00; Stop 10/18/16 at 19:41; Status DC Phenol (Chloraseptic [place]) 2 spray Q2H PRN OROPHARYNG sore throat Last administered on 10/18/16 22:19; Start 10/18/16 at 19:00 Sodium Chloride 2 spray 2 spray UNSCH PRN NASAL DRYNESS; Start 10/18/16 at 19: 41 Micafungin Sodium/ Sodium Chloride (Mycamine Inj/NS Inj) 100 ml @ 100 mls/hr Q24H IV Last administered on 10/21/16 16:25; Start 10/19/16 at 16:00 Loratadine (Claritin) 5 mg DAILY PO Last administered on 10/22/16 07:56; Start 10/20/16 at 12:00 Miscellaneous (Pill Splitter) 1 ea UNSCH PRN OTHER SEE LABEL COMMENTS; Start at 11:15 Amoxicillin/ Clavulanate Potassium (Augmentin) 500 mg Q8HR PO Last administered on 10/22/16 05:44; Start 10/20/16 at 14:00 Tacrolimus 3 mg 3 mg BID@06,18 PO Last administered on 10/22/16 05:44; Start 10/20/16 at 18:00 Fluconazole/ Sodium Chloride (Diflucan 200 Mg Premix Bag) 100 ml @ 100 mls/hr Q24H IV Last administered on 10/21/16 17:50; Start 10/20/16 at 17:00 Insulin Detemir (Levemir Inj) 10 units Q12HR SQ ; Start 10/22/16 at 21:00 Acetaminophen/ Hydrocodone Bitart ([place] 5-325 Mg) 1 tab Q4H PRN PO pain 3-10 ; Start 10/22/16 at 11:15 A/P Assessment and Plan Fungemia -Treated with Micafungi and Diflucan. -Positive wound cultures and the toenail. -Infectious disease is following and managing. -Per infectious disease LILIYA will be based on final cultures. -So far current repeat blood cultures are negative. Hyponatremia -patient given dose of [place]. -Improved. Left great toe paronychia -failed outpatient therapy. per Pod doubt that this is caused of chills. -s/p total nail avulsion on 10/18/2016. Status post liver transplant -Dr. Larissa melgar. -His medication was resumed. -renal ultrasound showed no obstruction. -Being managed by hydrator. Continues to improve. -Continue management per his hydrator. Acute on Chronic kidney disease -Status post transplant. -[facility] is following. -Patient requesting to be on his full dose of Lasix. Told patient that hydrator is managing and they're basing their decision on his hospital course. -Patient require IV fluids due to acute on chronic kidney failure so that is why hydrator is being cautious with Lasix. Type 2 diabetes insulin-dependent -Patient stated that he is on NovoLog sliding scale and Lantus 18 units at night. -Start Levemir 10 units twice a day. Continue with insulin sliding scale. -Continue with hypoglycemic protocol. Hyperkalemia -s/p Kayexalate. -Mildly elevated. Being managed by hydrator. Sinusitis -Patient is on Augmentin. Claritin and nasal saline spray. History of congestive heart failure -2 D echo with 35% EF as of 08/20 -BNP and elevated. Lasix held by hydrator. -Mild trace edema in a clinical area. -Echo done on 10/20/2016 showed ejection fraction 35% and aortic stenosis. -Windmill Mechanic consulted and since LILIYA will not be done stated follow-up when necessary. -Lasix per hydrator. Lower extremity foot/calf pain -This seems to be due to more osteoarthritis. Questionable gout. Uric acid mildly elevated. -Will get an x-ray of left foot and bilateral venous Doppler of the lower extremity. -If gout per treatment per podiatry/hydrator. Patient is already on prednisone. Aortic stenosis -Follow up with his manager camp as outpatient. DVT prophylaxiswith heparin. GI prophylaxis on pantoprazole. Discharge Planning Patient is on and IV antifungal medication pending final cultures. Priscilla Lee MD Oct 22, 2016 11:23
--- NOTE | 2016-10-22 13:14 | RADRPT ---
EXAM DATE/TIME: 10/22/2016 11:46 [facility] COMPARISON: US KIDNEY / TRANSPLANT, October 18, 2016, 20:18. INDICATIONS : Bilateral leg swelling. MEDICAL HISTORY : Congestive heart failure. Hypertension. Hepatitis C. Barretts syndrome. Upper dentures. Back pain. He adaches from dialysis. Diabetic Neuropathy. Dialysis with left upper arm fistula. Chest pain. Dyspnea . Renal failure. Dialysis. SURGICAL HISTORY : Eye surgery. Bilateral carotid surgery. Left arteriovenous shunt. Cardiac catheterization. Right gucci l transplant. Ureteral stents. Left foot surgery. ENCOUNTER: Initial ACUITY: 3 days PAIN SCORE: 3/10 LOCATION: Bilateral legs. TECHNIQUE: Venous ultrasound of the left and right leg was performed from the inguinal ligament to the proximal calf. Real-time, color Doppler and spectral tracing, compression and augmentation techniques were us ed. FINDINGS: RIGHT LEG: There is normal compressibility of the deep venous system from the inguinal region to the proximal ca lf. No echogenic clot is seen in the lumen of the common femoral, femoral, popliteal, and posterior tibial veins. There is a normal response of the venous system to proximal and distal augmentation an d respiration. There is a 3.1 x 1.7 x 3.7 cm fluid collection surrounding the transplanted right kidney in the right pelvis. LEFT LEG: There is normal compressibility of the deep venous system from the inguinal region to the proximal ca lf. No echogenic clot is seen in the lumen of the common femoral, femoral, popliteal, and posterior tibial veins. There is a normal response of the venous system to proximal and distal augmentation an d respiration. There is nonocclusive thrombus in the left lesser saphenous vein. CONCLUSION: 1. No DVT. 2. Superficial thrombus in the left lesser saphenous vein. 3. Fluid collection seen around the transplant right kidney. Derrek Lopez MD on October 22, 2016 at 13:08 Board Certified Radiologist. This report was verified electronically.
--- NOTE | 2016-10-22 14:03 | HHI.NPPN ---
Subjective History of Present Illness 66 year old with kidney transplant, HTN.DM not feeling well, has Left foot infection Additional Remarks Renal function is better. All the notes were reviewed. On Diflucan. Also on Augmentin and Micafungin. Complains of edema Review of Systems General Constitutional: Fatigue Objective Data Data 10/21/16 10/22/16 19:00 07:00 Intake Total 960 ml 1475 ml Output Total 1150 ml 1000 ml Balance -190 ml 475 ml Intake Oral 960 ml 1475 ml IV Total 0 ml Output Urine Total 1150 ml 1000 ml # Voids 3 # Bowel Movements 0 0 Vital Signs Date Time Temp Pulse Resp B/P Pulse Ox O2 Delivery O2 Flow Rate FiO2 10/22/16 09:35 97 21 10/22/16 08:20 65 10/22/16 08:20 Room Air 10/22/16 08:00 98.8 68 18 139/63 97 10/22/16 04:00 98.1 64 19 145/78 99 10/22/16 04:00 Room Air 10/22/16 00:30 97.9 61 19 141/80 99 10/22/16 00:00 Room Air 10/21/16 21:45 98.1 59 17 160/93 100 10/21/16 21:00 Room Air 10/21/16 20:00 73 10/21/16 16:00 98.1 67 20 170/75 97 -: 10/18/16 0635 10/22/16 0731 Physical Exam General Appearance: Well Developed, Well Nourished Neck Neck Exam: Neck Supple Pulmonary Resp Exam: Clear Bilaterally, Breath Sounds Equal Cardiology CV Exam: Regular, Normal Sinus Rhythm Gastrointestinal/Abdomen GI Exam: Soft, Non-Tender, Bowel Sounds Present Extremeties Extremities Exam: Moderate Edema Neurologic Neuro Exam: Alert Assessment/Plan Problem List: (1) Kidney transplant status, cadaveric Plan: Renal function is better. On CellCept, Prednisone and Tacrolimus. edema increase Lasix 20 mg bid Tacrolimus level drawn late will check time specimen (2) DM (diabetes mellitus) Plan: Continue monitor blood glucose (3) Hypertension Plan: BP is stable. Cardiology note reviewed. Low EF is noted. (4) Sepsis Plan: ID following. Diflucan. Monitor Prograf level. Plan patient thinks that he has gout. On examin, he does not have joint swelling, no erythema over the right foot, ankle, and leg. No tenderness. I will order uric acid. Problem Qualifiers (1) DM (diabetes mellitus): Qualified Code: E11.42 - Type 2 diabetes mellitus with diabetic polyneuropathy , without long-term current use of insulin Stacy Dias MD Oct 22, 2016 14:03
--- NOTE | 2016-10-22 14:21 | RADRPT ---
EXAM DATE/TIME: 10/22/2016 12:28 [facility] COMPARISON: No previous studies available for comparison. INDICATIONS : Left foot pain. Possible infection in first digit. MEDICAL HISTORY : Diabetes mellitus type II. SURGICAL HISTORY : None. ENCOUNTER: Initial ACUITY: 2 weeks PAIN SCORE: 5/10 LOCATION: Left foot. FINDINGS: No fracture is seen. There is very prominent hypertrophic change at the 1st MTP joint region. There is somewhat ill-defined cortex at the proximal lateral aspect of the 1st proximal phalanx. Some ero sive changes or destruction in this region can not be excluded. There is also chronic hypertrophic c hange at the dorsal aspect of the hind foot and mid foot. Prominent calcaneal spurs are seen at the Achilles and plantar aponeurosis attachment sites. There is a foreign body seen as a 0.9 cm linear m etallic density seen in the soft tissues at the plantar lateral proximal aspect of the 1st digit. Ex tensive vascular calcifications are seen. CONCLUSION: 1. Loss of cortical definition at the proximal lateral aspect of the 1st proximal phalanx concerning for some possible destruction in this region. There is underlying chronic change at this area. 2. 0.9 cm linear metallic foreign body seen in the proximal plantar lateral aspect of the 1st digit s oft tissues. 3. Prominent hypertrophic change at the hind foot and the mid foot. Derrek Lopez MD on October 22, 2016 at 13:59 Board Certified Radiologist. This report was verified electronically.
--- NOTE | 2016-10-22 15:57 | HHI.IDPN ---
Subjective Subjective Remarks co SOB co sinus congestion co headache, intermittent no fever 2 D echo with mod to severe Blood from 10/13 growing yeast , still no ID'd P crypto studies Nail clx growing mold Antibiotics micafubngin fluconasole augmentin Allergies: Coded Allergies: No Known Allergies (Unverified , 10/12/16) Objective . Vital Signs Date Time Temp Pulse Resp B/P Pulse Ox O2 Delivery O2 Flow Rate FiO2 10/22/16 09:35 97 21 10/22/16 08:20 65 10/22/16 08:20 Room Air 10/22/16 08:00 98.8 68 18 139/63 97 10/22/16 04:00 98.1 64 19 145/78 99 10/22/16 04:00 Room Air 10/22/16 00:30 97.9 61 19 141/80 99 10/22/16 00:00 Room Air 10/21/16 21:45 98.1 59 17 160/93 100 10/21/16 21:00 Room Air 10/21/16 20:00 73 10/21/16 16:00 98.1 67 20 170/75 97 10/21/16 10/21/16 10/22/16 15:00 23:00 07:00 Intake Total 960 ml 975 ml 500 ml Output Total 1150 ml 500 ml 500 ml Balance -190 ml 475 ml 0 ml Intake Oral 960 ml 975 ml 500 ml IV Total 0 ml Output Urine Total 1150 ml 500 ml 500 ml # Voids 3 # Bowel Movements 0 0 0 . Laboratory Tests Test 10/21/16 10/22/16 06:55 07:31 Sodium Level 133 MEQ/L 132 MEQ/L Potassium Level 5.2 MEQ/L 5.4 MEQ/L Chloride Level 104 MEQ/L 103 MEQ/L Carbon Dioxide Level 20.1 MEQ/L 17.9 MEQ/L Anion Gap 9 MEQ/L 11 MEQ/L Blood Urea Nitrogen 65 MG/DL 65 MG/DL Creatinine 2.34 MG/DL 2.34 MG/DL Estimat Glomerular Filtration 28 ML/MIN 28 ML/MIN Rate Random Glucose 275 MG/DL 235 MG/DL Uric Acid 7.9 MG/DL Calcium Level 9.1 MG/DL 9.2 MG/DL Magnesium Level 2.4 MG/DL Phosphorus Level 2.2 MG/DL Albumin 2.8 GM/DL Imaging Last Impressions Lower Extremity Ultrasound 10/22/16 0000 Signed Impressions: Service Date/Time: Saturday, October 22, 2016 11:46 - CONCLUSION: 1. No DVT. 2. Superficial thrombus in the left lesser saphenous vein. 3. Fluid collection seen around the transplant right kidney. Derrek Lopez MD Renal Ultrasound 10/18/16 0000 Signed Impressions: Service Date/Time: October 20:18 - CONCLUSION: 1. Resistive indices of the transplant kidney have increased slightly in the interim and are now at the upper limits of normal. 2. No acute obstructive uropathy demonstrated. Parenchymal echogenicity within normal limits. Derrek Arriaza MD Liver Ultrasound 10/18/16 0000 Signed Impressions: Service Date/Time: October 20:01 - CONCLUSION: 1. Nonspecific hepatomegaly. 2. 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 3. Atrophied right kidney. Derrek Ariraza MD Chest X-Ray 10/16/16 1730 Signed Impressions: Service Date/Time: Sunday, October 16, 2016 17:54 - CONCLUSION: No evidence of acute cardiopulmonary disease. Derrek Arriaza MD Physical Exam CONSTITUTIONAL/GENERAL: This is an adequately nourished patient, in no apparent distress. TUBES/LINES/DRAINS: LUE AV fistula with good thrill, no e/o infx SKIN: No jaundice, rashes, or lesions. HEENT: no facial edema no conjunctival injections hemorrages minimal tenderness to palpation over sinuses PERRL EOMI CARDIOVASCULAR: Regular rate and rhythm without murmurs, gallops, or rubs. RESPIRATORY/CHEST: Symmetric, unlabored respirations. Clear to auscultation. Breath sounds equal bilaterally. No wheezes, rales, or rhonchi. GASTROINTESTINAL: Abdomen soft, non-tender, nondistended. No hepato-splenomegaly , or palpable masses. No guarding. Bowel sounds present. GENITOURINARY: Without palpable bladder distension. MUSCULOSKELETAL: Extremities without clubbing, cyanosis, or edema R foot L foot with dressing in place no edema NEUROLOGICAL: Awake and alert. Motor and sensory grossly within normal limits. Follows commands. Clear speech Moves all extremities. PSYCHIATRIC: No obvious anxiety/depression. no apparent hallucinations or other psychotic thought process. Assessment & Plan Remarks New Fungemia , yeast - it is not clear if the yeast is cryptococcal or candidal - dw micrrolab: no pseudopodia, small and round CHF exacebrbation - 2 D echo with 35% EF as of 08/20 Mod to severe on 2 D echo ? L hallux paronichim, sp naiol removal, clx P - mold in clx / dermatophite cough - serial CXRs improved and showed no infiltrate on today's film Fluid collection seen around the transplant right kidney. Headache FU blood clx untill final cont fluconaole cont micafungin IV cont augmentin - for MSSA mild DFI, sinusitis brain imagine studies - if crypto + will need LP ? fluid arounf allogaraft to be evaluated dw Dr Carlos montenegro @ b/s Nancy Centeno MD Oct 22, 2016 15:57
[2016-10-22] MEDS: MICAFUNGIN INJ 150 MG in SODIUM CHLORIDE 0.9% INJ 100 ML IV SCH (16:13)
[2016-10-22] MEDS: FLUCONAZOLE 200 MG PREMIX BAG 100 ML IV SCH (16:14)
[2016-10-22] MEDS: LORazepam 1 MG TAB PO SCH (21:07)
[2016-10-22] MEDS: NIFEdipine 30 MG SUSTAINED RELEASE TAB PO SCH (21:07)
[2016-10-22] MEDS: INSULIN DETEMIR 100 UNITS/ML VIAL SQ SCH (21:12)
[2016-10-22] MEDS: ACETAMINOPHEN/HYDROcodone 325 MG/5 MG TAB PO PRN (22:42)
[2016-10-23] VITALS (8 sets, daily range): BP systolic 135–178; BP diastolic 63–90; PULSE 57–69; RESP 18–22; TEMP 97.6–98.4; O2SAT 93–96
[2016-10-23] MEDS: TACROLIMUS 1 MG CAP PO SCH (05:11)
[2016-10-23] MEDS: AMOXICILLIN/CLAVULANATE K 500 MG TAB PO SCH ×3 (05:12→21:32)
[2016-10-23] MEDS: MYCOPHENOLATE MOFETIL 500 MG TAB PO SCH (05:12)
[2016-10-23] MEDS: HEPARIN SODIUM - SQ 10,000 UNITS/ML VIAL SQ SCH ×3 (05:12→21:32)
[2016-10-23] MEDS: ACETAMINOPHEN/HYDROcodone 325 MG/5 MG TAB PO PRN ×2 (05:12→18:24)
[2016-10-23 05:59] LABS: BICARBONATE 19.7 MEQ/L (21.0-32.0); POTASSIUM 5.1 MEQ/L (3.5-5.1)
[2016-10-23] MEDS: ISOSORBIDE MONONITRATE 30 MG TAB PO SCH (06:11)
[2016-10-23] MEDS: FUROSEMIDE 20 MG TAB PO SCH ×2 (06:11→17:57)
[2016-10-23] MEDS: INSULIN ASPART SUPPLEMENTAL SCALE SQ SCH ×4 (06:12→21:36)
[2016-10-23] MEDS: LORATADINE 10 MG TAB PO SCH (09:00)
[2016-10-23] MEDS: SODIUM CHLORIDE 0.9% FLUSH 10 ML FLUSH IV FLUSH SCH ×2 (09:00→21:00)
[2016-10-23] MEDS: LABETALOL HCL 200 MG TAB PO SCH ×2 (09:14→21:32)
[2016-10-23] MEDS: PREGABALIN 25 MG CAP PO SCH ×3 (09:14→17:57)
[2016-10-23] MEDS: cloNIDine HCL 0.1 MG TAB PO SCH (09:14)
[2016-10-23] MEDS: SODIUM BICARBONATE 650 MG TAB PO SCH ×2 (09:14→17:57)
[2016-10-23] MEDS: predniSONE 5 MG TAB PO SCH (09:14)
[2016-10-23] MEDS: DOCUSATE SODIUM 100 MG CAP PO SCH ×2 (09:15→21:32)
[2016-10-23] MEDS: INSULIN DETEMIR 100 UNITS/ML VIAL SQ SCH ×2 (09:24→21:35)
[2016-10-23] MEDS ORDERED: LORazepam 2 MG/ML VIAL IV PUSH ONE (09:45)
--- NOTE | 2016-10-23 10:42 | RADRPT ---
EXAM DATE/TIME: 10/23/2016 10:02 [facility] COMPARISON: CT NEEDLE BIOPSY RENAL, RIGHT, December 01, 2014, 8:35. INDICATIONS : Cephalgia. MEDICAL HISTORY : Hepatitis C. Diabetes mellitus type 2. Hypertension. SURGICAL HISTORY : Renal transplant. ENCOUNTER: Initial ACUITY: 2 day PAIN SCORE: 2/10 LOCATION: head TECHNIQUE: Multiplanar, multisequence MRI of the brain was performed without contrast. FINDINGS: CEREBRUM: The ventricles are normal for age. Small lacune adjacent to the insular cortex on the left. No eviden ce of midline shift, mass lesion, hemorrhage or acute infarction. No extraaxial fluid collections ar e seen. The pituitary gland and suprasellar cistern are normal in configuration. WHITE MATTER: No significant signal abnormalities are seen in the white matter. POSTERIOR FOSSA: The cerebellum and brainstem are intact. The 4th ventricle is midline. The cerebellopontine angle is unremarkable. The cerebellar tonsils are normal in position. DIFFUSION IMAGING: No focal areas of restricted diffusion are seen. No evidence of acute infarction. EXTRACRANIAL: The visualized portions of the orbits and paranasal sinuses are unremarkable. CONCLUSION: 1. No acute intracranial abnormality. 2. No acute infarction. 3. Prominent vascular channel adjacent to the left insular cortex. Chung Handley MD on October 23, 2016 at 10:36 Board Certified Radiologist. This report was verified electronically.
--- NOTE | 2016-10-23 11:18 | HHI.PR ---
Subjective Remarks Follow-up for anemia, left foot pain and bilateral edema. He stated he continues to have left foot pain but that has been improving. He also stated that edema has been improving. His stated that he intermittently hallucinates but has not had any hallucinations with me. This seems to be more at night. Patient remains afebrile. He has no other complaints. His is at the bedside. Objective Vitals Vital Signs Date Time Temp Pulse Resp B/P Pulse Ox O2 Delivery O2 Flow Rate FiO2 10/23/16 09:40 95 21 10/23/16 04:30 98.2 65 20 156/70 94 10/23/16 00:33 98.3 63 22 160/77 93 10/22/16 20:00 97.8 66 18 162/70 95 10/22/16 20:00 Room Air 10/22/16 19:53 64 10/22/16 16:00 96.0 65 20 149/72 92 I/O 10/22/16 10/22/16 10/22/16 10/23/16 10/23/16 10/23/16 07:00 15:00 23:00 07:00 15:00 23:00 Intake Total 500 ml 360 ml Output Total 500 ml 400 ml 375 ml 400 ml Balance 0 ml -40 ml -375 ml -400 ml Intake Oral 500 ml 360 ml Output Urine Total 500 ml 400 ml 375 ml 400 ml # Voids 3 # Bowel Movements 0 0 1 Result Diagram: 10/23/16 0513 Imaging Last Impressions Brain MRI 10/23/16 0000 Signed Impressions: Service Date/Time: Sunday, October 23, 2016 10:02 - CONCLUSION: 1. No acute intracranial abnormality. 2. No acute infarction. 3. Prominent vascular channel adjacent to the left insular cortex. Chung Handley MD Lower Extremity Ultrasound 10/22/16 0000 Signed Impressions: Service Date/Time: Saturday, October 22, 2016 11:46 - CONCLUSION: 1. No DVT. 2. Superficial thrombus in the left lesser saphenous vein. 3. Fluid collection seen around the transplant right kidney. Derrek Lopez MD Foot X-Ray 10/22/16 0000 Signed Impressions: Service Date/Time: Saturday, October 22, 2016 12:28 - CONCLUSION: 1. Loss of cortical definition at the proximal lateral aspect of the 1st proximal phalanx concerning for some possible destruction in this region. There is underlying chronic change at this area. 2. 0.9 cm linear metallic foreign body seen in the proximal plantar lateral aspect of the 1st digit soft tissues. 3. Prominent hypertrophic change at the hind foot and the mid foot. Derrek Lopez MD Renal Ultrasound 10/18/16 0000 Signed Impressions: Service Date/Time: October 20:18 - CONCLUSION: 1. Resistive indices of the transplant kidney have increased slightly in the interim and are now at the upper limits of normal. 2. No acute obstructive uropathy demonstrated. Parenchymal echogenicity within normal limits. Derrek Arriaza MD Liver Ultrasound 10/18/16 0000 Signed Impressions: Service Date/Time: October 20:01 - CONCLUSION: 1. Nonspecific hepatomegaly. 2. 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 3. Atrophied right kidney. Derrek Arriaza MD Chest X-Ray 10/16/16 1730 Signed Impressions: Service Date/Time: Sunday, October 16, 2016 17:54 - CONCLUSION: No evidence of acute cardiopulmonary disease. Derrek Arriaza MD Objective Remarks GENERAL: This is a well-nourished, well-developed patient in NAD NECK: Trachea midline. No JVD Supple, nontender, no meningeal signs. CARDIOVASCULAR: Regular rate and rhythm without gallops, or rubs. Systolic murmur at aortic area RESPIRATORY: Clear to auscultation. Breath sounds equal bilaterally. No wheezes , rales, or rhonchi. GASTROINTESTINAL: Abdomen soft, non-tender, nondistended No guarding. MUSCULOSKELETAL: left big toe with swelling that has improved. B/L swelling of foot L>>R that has improved drastically. +diffuse tenderness on the bottom of left foot. NEURO: AAO X 3. answers questions appropriately Procedures Current Medications Sodium Chloride 2 ml 2 ml UNSCH PRN IVF FLUSH AFTER USING IV ACCESS; Start at 17:30; Stop 10/17/16 at 02:00; Status DC Sodium Chloride (NS 500 ml Inj) 500 ml @ 500 mls/hr ONCE ONCE IV Last administered on 10/16/16t 17:30; Start 10/16/16 at 17:30; Stop 10/16/16 at 18:29 ; Status DC Morphine Sulfate (Morphine Inj) 4 mg ONCE ONCE IV PUSH Last administered on 18:00; Start 10/16/16 at 18:00; Stop 10/16/16 at 18:01; Status DC Ondansetron HCl (Zofran Inj) 4 mg ONCE ONCE IV PUSH Last administered on 18:00; Start 10/16/16 at 18:00; Stop 10/16/16 at 18:01; Status DC Tacrolimus (Prograf) 3 mg ONCE ONCE PO Last administered on 10/16/16 18:30; Start 10/16/16 at 18:15; Stop 10/16/16 at 18:16; Status DC Acetaminophen (Tylenol) 1,000 mg ONCE ONCE PO Last administered on 10/16/16 18:45; Start 10/16/16 at 18:45; Stop 10/16/16 at 18:46; Status DC Mycophenolate Mofetil 500 mg 500 mg ONCE PO Last administered on 10/16/16 20: 32; Start 10/16/16 at 18:45; Stop 10/17/16 at 10:44; Status DC Piperacillin Sod/ Tazobactam Sod 50 ml @ 100 mls/hr ONCE ONCE IV Last administered on 10/16/16 18:45; Start 10/16/16 at 18:45; Stop 10/17/16 at 13:44 ; Status DC Vancomycin HCl/ Sodium Chloride (Vancomycin Inj/ NS 250 ml Inj) 250 ml @ 250 mls/hr ONCE ONCE IV Last administered on 10/16/16 18:45; Start 10/16/16 at 18 :45; Stop 10/16/16 at 19:44; Status DC Hydromorphone HCl (Dilaudid Pf Inj) 1 mg ONCE ONCE IV PUSH Last administered on 10/16/16 19:15; Start 10/16/16 at 19:15; Stop 10/16/16 at 19:16; Status DC Sodium Chloride (NS Flush) 2 ml UNSCH PRN IV FLUSH FLUSH AFTER USING IV ACCESS ; Start 10/16/16 at 19:30 Sodium Chloride (NS Flush) 2 ml BID IV FLUSH Last administered on 10/23/16 09: 00; Start 10/16/16 at 21:00 Naloxone HCl (Narcan Inj) 0.4 mg UNSCH PRN IV SEE LABEL COMMENTS; Start at 19:30 Hydromorphone HCl 1 mg 1 mg Q4H PRN IV PUSH pain >5 Last administered on 21:07; Start 10/17/16 at 02:00; Stop 10/22/16 at 11:08; Status DC Piperacillin Sod/ Tazobactam Sod 100 ml @ 200 mls/hr Q6H IV Last administered on 10/17/16 12:56; Start 10/17/16 at 02:00; Stop 10/17/16 at 13:44; Status DC Pharmacy Profile Note (Vancomycin Consult Pharmacy) 0 ml @ 0 mls/hr UNSCH OTHER ; Start 10/17/16 at 02:00; Stop 10/19/16 at 14:48; Status DC Clonidine (Catapres) 0.1 mg DAILY PO Last administered on 10/23/16 09:14; Start 10/17/16 at 09:00 Docusate Sodium (Colace) 100 mg BID PO Last administered on 10/23/16 09:15; Start 10/17/16 at 09:00 Furosemide (Lasix) 20 mg DAILY PO Last administered on 10/22/16 07:57; Start 10/17/16 at 09:00; Stop 10/22/16 at 14:07; Status DC Isosorbide Mononitrate (Imdur) 30 mg DAILY@07 PO Last administered on 06:11; Start 10/17/16 at 07:00 Labetalol HCl (Trandate) 200 mg BID PO Last administered on 10/23/16 09:14; Start 10/17/16 at 09:00 Lorazepam (Ativan) 3 mg HS PO Last administered on 10/22/16 21:07; Start 10/17 at 21:00 Mycophenolate Mofetil (Cellcept) 500 mg BID PO Last administered on 10/17/16 08:30; Start 10/17/16 at 09:00; Stop 10/17/16 at 16:03; Status DC Nifedipine (Procardia Xl) 30 mg HS PO Last administered on 10/22/16 21:07; Start 10/17/16 at 21:00 Prednisone (Deltasone) 5 mg DAILY PO Last administered on 10/23/16 09:14; Start 10/17/16 at 09:00 Pregabalin (Lyrica) 25 mg TID PO Last administered on 10/23/16 09:14; Start at 09:00 Sodium Bicarbonate (Sodium Bicarbonate) 650 mg BIDPC PO Last administered on 09:14; Start 10/17/16 at 09:00 Tacrolimus (Prograf) 3 mg Q12H PO Last administered on 10/17/16 02:46; Start 10/17/16 at 02:30; Stop 10/17/16 at 10:41; Status DC Albuterol/ Ipratropium (Duoneb Neb) 1 ampule Q6HR NEB NEB Last administered on 10/18/16 15:23; Start 10/17/16 at 04:00; Stop 10/18/16 at 18:54; Status DC Albuterol/ Ipratropium (Duoneb Neb) 1 ampule Q2HR NEB PRN NEB wheezing; Start 10/17/16 at 02:30 Dextrose (D50w (Vial) Inj) 50 ml UNSCH PRN IV HYPOGLYCEMIA-SEE COMMENTS; Start 10/17/16 at 02:30 Glucagon (Glucagon Inj) 1 mg UNSCH PRN OTHER HYPOGLYCEMIA-SEE COMMENTS; Start 10/17/16 at 02:30 Insulin Aspart (NovoLOG SUPPLEMENTAL SCALE) 1 ACHS SLIDING SCALE SQ Last administered on 10/23/16 06:12; Start 10/17/16 at 07:00 Heparin Sodium (Porcine) 5000 units 5,000 units Q8HR SQ Last administered on 05:12; Start 10/17/16 at 14:00 Vancomycin HCl/ Sodium Chloride (Vancomycin Inj/ NS 250 ml Inj) 250 ml @ 250 mls/hr ONCE ONCE IV Last administered on 10/17/16 09:43; Start 10/17/16 at 10 :00; Stop 10/17/16 at 10:59; Status DC Sodium Polystyrene Sulfonate (Kayexalate Liq) 15 gm ONCE ONCE PO Last administered on 10/17/16 12:54; Start 10/17/16 at 10:30; Stop 10/17/16 at 10:31 ; Status DC Tacrolimus 3 mg 3 mg BID@06,18 PO Last administered on 10/20/16 06:00; Start 10/17/16 at 18:00; Stop 10/20/16 at 14:19; Status DC Cefepime HCl/ Sodium Chloride (Maxipime Inj/NS Inj) 100 ml @ 200 mls/hr Q24H IV Last administered on 10/18/16 14:14; Start 10/17/16 at 14:00; Stop at 14:48; Status DC Mycophenolate Mofetil 500 mg 500 mg BID@06,18 PO Last administered on 05:12; Start 10/17/16 at 18:00 Sodium Bicarbonate/ Sodium Chloride (Sodium Bicarbonate 8.4% Inj/1/2 NS 1000 ml Inj) 1,075 ml @ 100 mls/hr [id number] IV Last administered on 10/19/16 06:08; Start 10/17/16 at 21:00; Stop 10/19/16 at 13:15; Status DC Tolvaptan 15 mg 15 mg ONCE ONCE PO Last administered on 10/17/16 22:06; Start 10/17/16 at 20:00; Stop 10/17/16 at 20:01; Status DC Vancomycin HCl/ Sodium Chloride (Vancomycin Inj/ NS 500 ml Inj) 515 ml @ 250 mls/hr ONCE ONCE IV Last administered on 10/18/16 12:56; Start 10/18/16 at 12 :00; Stop 10/18/16 at 14:03; Status DC Sodium Chloride (Baby [place] Saline 0.65% Marco Drp/ [place]) 2 drop UNSCH PRN EACH NARE dryness; Start 10/18/16 at 19:00; Stop 10/18/16 at 19:41; Status DC Phenol (Chloraseptic [place]) 2 spray Q2H PRN OROPHARYNG sore throat Last administered on 10/18/16 22:19; Start 10/18/16 at 19:00 Sodium Chloride 2 spray 2 spray UNSCH PRN NASAL DRYNESS; Start 10/18/16 at 19: 41 Micafungin Sodium/ Sodium Chloride (Mycamine Inj/NS Inj) 100 ml @ 100 mls/hr Q24H IV Last administered on 10/22/16 16:13; Start 10/19/16 at 16:00 Loratadine (Claritin) 5 mg DAILY PO Last administered on 10/22/16 07:56; Start 10/20/16 at 12:00 Miscellaneous (Pill Splitter) 1 ea UNSCH PRN OTHER SEE LABEL COMMENTS; Start at 11:15 Amoxicillin/ Clavulanate Potassium (Augmentin) 500 mg Q8HR PO Last administered on 10/23/16 05:12; Start 10/20/16 at 14:00 Tacrolimus 3 mg 3 mg BID@06,18 PO Last administered on 10/23/16 05:11; Start 10/20/16 at 18:00 Fluconazole/ Sodium Chloride (Diflucan 200 Mg Premix Bag) 100 ml @ 100 mls/hr Q24H IV Last administered on 10/22/16 16:14; Start 10/20/16 at 17:00 Insulin Detemir (Levemir Inj) 10 units Q12HR SQ Last administered on 10/23/16 09:24; Start 10/22/16 at 21:00 Acetaminophen/ Hydrocodone Bitart ([place] 5-325 Mg) 1 tab Q4H PRN PO pain 3-10 Last administered on 10/23/16 05:12; Start 10/22/16 at 11:15 Furosemide (Lasix) 20 mg BIDAC PO Last administered on 10/23/16 06:11; Start 10/22/16 at 16:00 Lorazepam (Ativan Inj) 1 mg ONCE ONCE IV PUSH Last administered on 10/23/16 09:42; Start 10/23/16 at 09:45; Stop 10/23/16 at 09:46; Status DC Medications and IVs Current Medications Sodium Chloride 2 ml 2 ml UNSCH PRN IVF FLUSH AFTER USING IV ACCESS; Start at 17:30; Stop 10/17/16 at 02:00; Status DC Sodium Chloride (NS 500 ml Inj) 500 ml @ 500 mls/hr ONCE ONCE IV Last administered on 10/16/16 17:30; Start 10/16/16 at 17:30; Stop 10/16/16 at 18:29 ; Status DC Morphine Sulfate (Morphine Inj) 4 mg ONCE ONCE IV PUSH Last administered on 18:00; Start 10/16/16 at 18:00; Stop 10/16/16 at 18:01; Status DC Ondansetron HCl (Zofran Inj) 4 mg ONCE ONCE IV PUSH Last administered on 18:00; Start 10/16/16 at 18:00; Stop 10/16/16 at 18:01; Status DC Tacrolimus (Prograf) 3 mg ONCE ONCE PO Last administered on 10/16/16 18:30; Start 10/16/16 at 18:15; Stop 10/16/16 at 18:16; Status DC Acetaminophen (Tylenol) 1,000 mg ONCE ONCE PO Last administered on 10/16/16 18:45; Start 10/16/16 at 18:45; Stop 10/16/16 at 18:46; Status DC Mycophenolate Mofetil 500 mg 500 mg ONCE PO Last administered on 10/16/16 20: 32; Start 10/16/16 at 18:45; Stop 10/17/16 at 10:44; Status DC Piperacillin Sod/ Tazobactam Sod 50 ml @ 100 mls/hr ONCE ONCE IV Last administered on 10/16/16 18:45; Start 10/16/16 at 18:45; Stop 10/17/16 at 13:44 ; Status DC Vancomycin HCl/ Sodium Chloride (Vancomycin Inj/ NS 250 ml Inj) 250 ml @ 250 mls/hr ONCE ONCE IV Last administered on 10/16/16 18:45; Start 10/16/16 at 18 :45; Stop 10/16/16 at 19:44; Status DC Hydromorphone HCl (Dilaudid Pf Inj) 1 mg ONCE ONCE IV PUSH Last administered on 10/16/16 19:15; Start 10/16/16 at 19:15; Stop 10/16/16 at 19:16; Status DC Sodium Chloride (NS Flush) 2 ml UNSCH PRN IV FLUSH FLUSH AFTER USING IV ACCESS ; Start 10/16/16 at 19:30 Sodium Chloride (NS Flush) 2 ml BID IV FLUSH Last administered on 10/23/16 09: 00; Start 10/16/16 at 21:00 Naloxone HCl (Narcan Inj) 0.4 mg UNSCH PRN IV SEE LABEL COMMENTS; Start at 19:30 Hydromorphone HCl 1 mg 1 mg Q4H PRN IV PUSH pain >5 Last administered on 21:07; Start 10/17/16 at 02:00; Stop 10/22/16 at 11:08; Status DC Piperacillin Sod/ Tazobactam Sod 100 ml @ 200 mls/hr Q6H IV Last administered on 10/17/16 12:56; Start 10/17/16 at 02:00; Stop 10/17/16 at 13:44; Status DC Pharmacy Profile Note (Vancomycin Consult Pharmacy) 0 ml @ 0 mls/hr UNSCH OTHER ; Start 10/17/16 at 02:00; Stop 10/19/16 at 14:48; Status DC Clonidine (Catapres) 0.1 mg DAILY PO Last administered on 10/23/16 09:14; Start 10/17/16 at 09:00 Docusate Sodium (Colace) 100 mg BID PO Last administered on 10/23/16 09:15; Start 10/17/16 at 09:00 Furosemide (Lasix) 20 mg DAILY PO Last administered on 10/22/16 07:57; Start 10/17/16 at 09:00; Stop 10/22/16 at 14:07; Status DC Isosorbide Mononitrate (Imdur) 30 mg DAILY@07 PO Last administered on 06:11; Start 10/17/16 at 07:00 Labetalol HCl (Trandate) 200 mg BID PO Last administered on 10/23/16 09:14; Start 10/17/16 at 09:00 Lorazepam (Ativan) 3 mg HS PO Last administered on 10/22/16 21:07; Start 10/17 at 21:00 Mycophenolate Mofetil (Cellcept) 500 mg BID PO Last administered on 10/17/16 08:30; Start 10/17/16 at 09:00; Stop 10/17/16 at 16:03; Status DC Nifedipine (Procardia Xl) 30 mg HS PO Last administered on 10/22/16 21:07; Start 10/17/16 at 21:00 Prednisone (Deltasone) 5 mg DAILY PO Last administered on 10/23/16 09:14; Start 10/17/16 at 09:00 Pregabalin (Lyrica) 25 mg TID PO Last administered on 10/23/16 09:14; Start at 09:00 Sodium Bicarbonate (Sodium Bicarbonate) 650 mg BIDPC PO Last administered on 09:14; Start 10/17/16 at 09:00 Tacrolimus (Prograf) 3 mg Q12H PO Last administered on 10/17/16 02:46; Start 10/17/16 at 02:30; Stop 10/17/16 at 10:41; Status DC Albuterol/ Ipratropium (Duoneb Neb) 1 ampule Q6HR NEB NEB Last administered on 10/18/16 15:23; Start 10/17/16 at 04:00; Stop 10/18/16 at 18:54; Status DC Albuterol/ Ipratropium (Duoneb Neb) 1 ampule Q2HR NEB PRN NEB wheezing; Start 10/17/16 at 02:30 Dextrose (D50w (Vial) Inj) 50 ml UNSCH PRN IV HYPOGLYCEMIA-SEE COMMENTS; Start 10/17/16 at 02:30 Glucagon (Glucagon Inj) 1 mg UNSCH PRN OTHER HYPOGLYCEMIA-SEE COMMENTS; Start 10/17/16 at 02:30 Insulin Aspart (NovoLOG SUPPLEMENTAL SCALE) 1 ACHS SLIDING SCALE SQ Last administered on 10/23/16 06:12; Start 10/17/16 at 07:00 Heparin Sodium (Porcine) 5000 units 5,000 units Q8HR SQ Last administered on 05:12; Start 10/17/16 at 14:00 Vancomycin HCl/ Sodium Chloride (Vancomycin Inj/ NS 250 ml Inj) 250 ml @ 250 mls/hr ONCE ONCE IV Last administered on 10/17/16 09:43; Start 10/17/16 at 10 :00; Stop 10/17/16 at 10:59; Status DC Sodium Polystyrene Sulfonate (Kayexalate Liq) 15 gm ONCE ONCE PO Last administered on 10/17/16 12:54; Start 10/17/16 at 10:30; Stop 10/17/16 at 10:31 ; Status DC Tacrolimus 3 mg 3 mg BID@06,18 PO Last administered on 10/20/16 06:00; Start 10/17/16 at 18:00; Stop 10/20/16 at 14:19; Status DC Cefepime HCl/ Sodium Chloride (Maxipime Inj/NS Inj) 100 ml @ 200 mls/hr Q24H IV Last administered on 10/18/16 14:14; Start 10/17/16 at 14:00; Stop at 14:48; Status DC Mycophenolate Mofetil 500 mg 500 mg BID@06,18 PO Last administered on 05:12; Start 10/17/16 at 18:00 Sodium Bicarbonate/ Sodium Chloride (Sodium Bicarbonate 8.4% Inj/1/2 NS 1000 ml Inj) 1,075 ml @ 100 mls/hr [id number] IV Last administered on 10/19/16 06:08; Start 10/17/16 at 21:00; Stop 10/19/16 at 13:15; Status DC Tolvaptan 15 mg 15 mg ONCE ONCE PO Last administered on 10/17/16 22:06; Start 10/17/16 at 20:00; Stop 10/17/16 at 20:01; Status DC Vancomycin HCl/ Sodium Chloride (Vancomycin Inj/ NS 500 ml Inj) 515 ml @ 250 mls/hr ONCE ONCE IV Last administered on 10/18/16 12:56; Start 10/18/16 at 12 :00; Stop 10/18/16 at 14:03; Status DC Sodium Chloride (Baby [place] Saline 0.65% Marco Drp/ [place]) 2 drop UNSCH PRN EACH NARE dryness; Start 10/18/16 at 19:00; Stop 10/18/16 at 19:41; Status DC Phenol (Chloraseptic [place]) 2 spray Q2H PRN OROPHARYNG sore throat Last administered on 10/18/16 22:19; Start 10/18/16 at 19:00 Sodium Chloride 2 spray 2 spray UNSCH PRN NASAL DRYNESS; Start 10/18/16 at 19: 41 Micafungin Sodium/ Sodium Chloride (Mycamine Inj/NS Inj) 100 ml @ 100 mls/hr Q24H IV Last administered on 10/22/16 16:13; Start 10/19/16 at 16:00 Loratadine (Claritin) 5 mg DAILY PO Last administered on 10/22/16 07:56; Start 10/20/16 at 12:00 Miscellaneous (Pill Splitter) 1 ea UNSCH PRN OTHER SEE LABEL COMMENTS; Start at 11:15 Amoxicillin/ Clavulanate Potassium (Augmentin) 500 mg Q8HR PO Last administered on 10/23/16 05:12; Start 10/20/16 at 14:00 Tacrolimus 3 mg 3 mg BID@06,18 PO Last administered on 10/23/16 05:11; Start 10/20/16 at 18:00 Fluconazole/ Sodium Chloride (Diflucan 200 Mg Premix Bag) 100 ml @ 100 mls/hr Q24H IV Last administered on 10/22/16 16:14; Start 10/20/16 at 17:00 Insulin Detemir (Levemir Inj) 10 units Q12HR SQ Last administered on 10/23/16 09:24; Start 10/22/16 at 21:00 Acetaminophen/ Hydrocodone Bitart ([place] 5-325 Mg) 1 tab Q4H PRN PO pain 3-10 Last administered on 10/23/16 05:12; Start 10/22/16 at 11:15 Furosemide (Lasix) 20 mg BIDAC PO Last administered on 10/23/16 06:11; Start 10/22/16 at 16:00 Lorazepam (Ativan Inj) 1 mg ONCE ONCE IV PUSH Last administered on 10/23/16 09:42; Start 10/23/16 at 09:45; Stop 10/23/16 at 09:46; Status DC A/P Assessment and Plan 66 -year-old renal transplant patient who presented with chills Fungemia -Treated with Micafungi and Diflucan. -Positive wound cultures from toenail. -Infectious disease is following and managing. -Per infectious disease LILIYA will be based on final cultures. also if + for crypto needs LP. -MRI done in AM which showed prominent vascular channel adjacent to the left insular cortex. -So far current repeat blood cultures are negative. Hyponatremia -patient given dose of Samsca. -Improved. L hallux paronychia, -failed outpatient therapy. per Pod doubt that this is caused of chills. -s/p total nail avulsion on 10/18/2016. Status post renal transplant -Dr. Larissa melgar. -His medication was resumed. -renal ultrasound showed no obstruction. -Being managed by lab tech. Continues to improve. -Continue management per his lab tech. Acute on Chronic kidney disease -Status post transplant. -Cruise Counselor is following. -on lasix. Type 2 diabetes insulin-dependent -home dosage is NovoLog sliding scale and Lantus 18 units at night. -on Levemir 10 units twice a day. Continue with insulin sliding scale. -Continue with hypoglycemic protocol. Hyperkalemia -s/p Kayexalate. -Mildly elevated. Being managed by lab tech. Sinusitis -Patient is on Augmentin. Claritin and nasal saline spray. History of congestive heart failure -2 D echo with 35% EF as of 08/20 -BNP and elevated. Lasix held by lab tech. -Mild trace edema in a clinical area. -Echo done on 10/20/2016 showed ejection fraction 35% and aortic stenosis. -Business Librarian consulted and since LILIYA will not be done stated follow-up when necessary. -Lasix per lab tech. Lower extremity foot/calf pain -This seems to be due to more osteoarthritis. Questionable gout. Uric acid mildly elevated. --US Doppler showed superficial thrombosis. no DVT -xray showed possible foreign body and 1st proximal phalange destruction and chronic changes. -will have Dr. Matos see patient in regards to this. he is asking to see him again. order placed. Superficial thrombosis -TEDS placed yesterday. encourage ambulation. unable to take NSAIDS due to renal disease. -improved with treatment. Aortic stenosis -moderate to severe -Follow up with his getter operator as outpatient. DVT prophylaxiswith heparin. GI prophylaxis on pantoprazole. Discharge Planning Patient is on and IV antifungal medication pending final cultures. Priscilla Lee MD Oct 23, 2016 11:18
[2016-10-23 13:59] LABS: CRYPTOCOCCUS ANTIGEN Negative (Negative)
--- NOTE | 2016-10-23 15:01 | HHI.NPPN ---
Subjective History of Present Illness 66 year old with kidney transplant, HTN.DM not feeling well, has Left foot infection Additional Remarks Renal function is better. All the notes were reviewed. On Diflucan. Also on Augmentin and Micafungin. Complains of edema Review of Systems General Constitutional: Fatigue Objective Data Data 10/22/16 10/23/16 18:59 06:59 Intake Total 360 ml Output Total 400 ml 775 ml Balance -40 ml -775 ml Intake Oral 360 ml Output Urine Total 400 ml 775 ml # Bowel Movements 0 1 Vital Signs Date Time Temp Pulse Resp B/P Pulse Ox O2 Delivery O2 Flow Rate FiO2 10/23/16 12:00 97.6 65 18 135/63 94 10/23/16 09:40 95 21 10/23/16 08:00 97.6 69 18 147/90 93 10/23/16 04:30 98.2 65 20 156/70 94 10/23/16 00:33 98.3 63 22 160/77 93 10/22/16 20:00 97.8 66 18 162/70 95 10/22/16 20:00 Room Air 10/22/16 19:53 64 10/22/16 16:00 96.0 65 20 149/72 92 -: 10/23/16 0513 Physical Exam General Appearance: Well Developed, Well Nourished Neck Neck Exam: Neck Supple Pulmonary Resp Exam: Clear Bilaterally, Breath Sounds Equal Cardiology CV Exam: Regular, Normal Sinus Rhythm Gastrointestinal/Abdomen GI Exam: Soft, Non-Tender, Bowel Sounds Present Extremeties Extremities Exam: Moderate Edema Neurologic Neuro Exam: Alert Assessment/Plan Problem List: (1) Kidney transplant status, cadaveric Plan: Renal function is better. On CellCept, Prednisone and Tacrolimus. hold off CellCept edema better on Lasix 20 mg bid Tacrolimus level 18.2 due to Diflucan hold Tacrolimus dose follow level BC from 10/13 growing Cryptococcus d/w Dr. Centeno need LP (2) DM (diabetes mellitus) Plan: Continue monitor blood glucose (3) Hypertension Plan: BP is stable. Cardiology note reviewed. Low EF is noted. (4) Sepsis Plan: ID following. Diflucan. Monitor Prograf level. Problem Qualifiers (1) DM (diabetes mellitus): Qualified Code: E11.42 - Type 2 diabetes mellitus with diabetic polyneuropathy , without long-term current use of insulin Stacy Dias MD Oct 23, 2016 15:00 Qualified Code: E11.42 - Type 2 diabetes mellitus with diabetic polyneuropathy , without long-term current use of insulin Stacy Dias MD Oct 23, 2016 15:00
--- NOTE | 2016-10-23 15:29 | HHI.IDPN ---
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 Vital Signs Date Time Temp Pulse Resp B/P Pulse Ox O2 Delivery O2 Flow Rate FiO2 10/23/16 12:00 97.6 65 18 135/63 94 10/23/16 09:40 95 21 10/23/16 08:00 97.6 69 18 147/90 93 10/23/16 04:30 98.2 65 20 156/70 94 10/23/16 00:33 98.3 63 22 160/77 93 10/22/16 20:00 97.8 66 18 162/70 95 10/22/16 20:00 Room Air 10/22/16 19:53 64 10/22/16 16:00 96.0 65 20 149/72 92 10/22/16 10/22/16 10/23/16 14:59 22:59 06:59 Intake Total 360 ml Output Total 400 ml 375 ml 400 ml Balance -40 ml -375 ml -400 ml Intake Oral 360 ml Output Urine Total 400 ml 375 ml 400 ml # Bowel Movements 0 1 . Laboratory Tests Test 10/22/16 10/23/16 07:31 05:13 Sodium Level 132 MEQ/L 135 MEQ/L Potassium Level 5.4 MEQ/L 5.1 MEQ/L Chloride Level 103 MEQ/L 105 MEQ/L Carbon Dioxide Level 17.9 MEQ/L 19.7 MEQ/L Anion Gap 11 MEQ/L 10 MEQ/L Blood Urea Nitrogen 65 MG/DL 62 MG/DL Creatinine 2.34 MG/DL 2.36 MG/DL Estimat Glomerular Filtration 28 ML/MIN 28 ML/MIN Rate Random Glucose 235 MG/DL 171 MG/DL Calcium Level 9.2 MG/DL 9.3 MG/DL Phosphorus Level 2.2 MG/DL Albumin 2.8 GM/DL Imaging Last Impressions Brain MRI 10/23/16 0000 Signed Impressions: Service Date/Time: Sunday, October 23, 2016 10:02 - CONCLUSION: 1. No acute intracranial abnormality. 2. No acute infarction. 3. Prominent vascular channel adjacent to the left insular cortex. Chung Handley MD Lower Extremity Ultrasound 10/22/16 0000 Signed Impressions: Service Date/Time: Saturday, October 22, 2016 11:46 - CONCLUSION: 1. No DVT. 2. Superficial thrombus in the left lesser saphenous vein. 3. Fluid collection seen around the transplant right kidney. Derrek Lopez MD Foot X-Ray 10/22/16 0000 Signed Impressions: Service Date/Time: Saturday, October 22, 2016 12:28 - CONCLUSION: 1. Loss of cortical definition at the proximal lateral aspect of the 1st proximal phalanx concerning for some possible destruction in this region. There is underlying chronic change at this area. 2. 0.9 cm linear metallic foreign body seen in the proximal plantar lateral aspect of the 1st digit soft tissues. 3. Prominent hypertrophic change at the hind foot and the mid foot. Derrek Lopez MD Renal Ultrasound 10/18/16 0000 Signed Impressions: Service Date/Time: October 20:18 - CONCLUSION: 1. Resistive indices of the transplant kidney have increased slightly in the interim and are now at the upper limits of normal. 2. No acute obstructive uropathy demonstrated. Parenchymal echogenicity within normal limits. Derrek Arriaza MD Liver Ultrasound 10/18/16 0000 Signed Impressions: Service Date/Time: October 20:01 - CONCLUSION: 1. Nonspecific hepatomegaly. 2. 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 3. Atrophied right kidney. Derrek Arriaza MD Chest X-Ray 10/16/16 [id number] Signed Impressions: Service Date/Time: Sunday, October 16, 2016 17:54 - CONCLUSION: No evidence of acute cardiopulmonary disease. Derrek Arriaza MD Physical Exam CONSTITUTIONAL/GENERAL: This is an adequately nourished patient, in no apparent distress. TUBES/LINES/DRAINS: LUE AV fistula with good thrill, no e/o infx SKIN: No jaundice, rashes, or lesions. HEENT: no facial edema no conjunctival injections hemorrages minimal tenderness to palpation over sinuses PERRL EOMI CARDIOVASCULAR: Regular rate and rhythm without murmurs, gallops, or rubs. RESPIRATORY/CHEST: Symmetric, unlabored respirations. Clear to auscultation. Breath sounds equal bilaterally. No wheezes, rales, or rhonchi. GASTROINTESTINAL: Abdomen soft, non-tender, nondistended. No hepato-splenomegaly , or palpable masses. No guarding. Bowel sounds present. GENITOURINARY: Without palpable bladder distension. MUSCULOSKELETAL: Extremities without clubbing, cyanosis, or edema R foot L foot is less edematous no erythema Hallux nail bed is clean, no purulence Erythema resolved no fluctuance NEUROLOGICAL: Awake and alert. Motor and sensory grossly within normal limits. Follows commands. Clear speech Moves all extremities. PSYCHIATRIC: No obvious anxiety/depression. no apparent hallucinations or other psychotic thought process. Assessment & Plan Remarks Disseminated cryptococcus neophormans Headache, r/o crypto meninitis CHF exacebrbation - 2 D echo with 35% EF as of 08/20 Mod to severe on 2 D echo ? L hallux paronichim, sp naiol removal, clx P - mold in clx / dermatophite cough - serial CXRs improved and showed no infiltrate on today's film ? initial crypto PNA Fluid collection seen around the transplant right kidney. - stable, dw Dr Dias Headache, r/o meningitis FU blood clx untill final cont fluconazole dc micafungin IV cont augmentin - for MSSA mild DFI, sinusitis x 2 weeks LP ? fluid arounf allogaraft to be evaluated lan [place]en[place]ro @ b/s Nancy Centeno MD Oct 23, 2016 15:29
--- NOTE | 2016-10-23 16:37 | PD.POD ---
Subjective Podiatric Problems Inflamed left hallux Pain scale used: 0-10 numeric scale Pain score: 0 Remarks Patient is a 66-year-old male who I saw for an abscess of the left foot which went on to heal. He was admitted with fever and chills and it was determined that he may have an infection of the left hallux. She had a positive blood culture on October 13 cryptococcus via form is. Patient is had swelling of the left hallux chronically secondary to osteoarthritis. I ordered a uric acid which was slightly elevated. He had some erythema at the eponychium of left hallux toenail. Nail avulsion was performed and culture of the epionychium was sent which was growing mold most likely a dermatophyte. Asked to see the patient because a foot x-ray showed a small metallic foreign body between the first and second toes of the left foot. Previous radiographs from August in May were reviewed which show the same metallic foreign body which appears to be small staple. It is not causing any problems or concerns. Past Med/Surg/Social History Past Medical History PFS Reviewed: Yes HEENT: REPORTS HX OF: Other HEENT history (Sam's syndrom) Endocrine: REPORTS HX OF: Diabetes mellitus Respiratory: REPORTS HX OF: COPD Genitourinary: REPORTS HX OF: Kidney failure, Other history (kidney transplant) Infectious disease: REPORTS HX OF: Chickenpox, Other inf disease history ( shingles) Psychiatric: REPORTS HX OF: Anxiety Disabilities: REPORTS HX OF: Hearing deficit Past Surgical History Cardiovascular: REPORTS HX OF: Other cardiac surgery Genitourinary: REPORTS HX OF: Other surgery (kidney transplant, stents ) Musculoskeletal: REPORTS HX OF: Other musculoskeletal srg (rt knee) Social History Smoking Status: Former Smoker Review of Systems Notes No other changes in his 14 point review of systems exam since he was seen last Objective Vital Signs Vital Signs Date Time Temp Pulse Resp B/P Pulse Ox O2 Delivery O2 Flow Rate FiO2 10/23/16 12:00 97.6 65 18 135/63 94 10/23/16 09:40 95 21 10/23/16 08:00 97.6 69 18 147/90 93 10/23/16 04:30 98.2 65 20 156/70 94 10/23/16 00:33 98.3 63 22 160/77 93 10/22/16 20:00 97.8 66 18 162/70 95 10/22/16 20:00 Room Air 10/22/16 19:53 64 Coded Allergies: No Known Allergies (Unverified , 10/12/16) Medications and IVs Current Medications Sodium Chloride 2 ml 2 ml UNSCH PRN IVF FLUSH AFTER USING IV ACCESS; Start at 17:30; Stop 10/17/16 at 02:00; Status DC Sodium Chloride (NS 500 ml Inj) 500 ml @ 500 mls/hr ONCE ONCE IV Last administered on 10/16/16 17:30; Start 10/16/16 at 17:30; Stop 10/16/16 at 18:29 ; Status DC Morphine Sulfate (Morphine Inj) 4 mg ONCE ONCE IV PUSH Last administered on 18:00; Start 10/16/16 at 18:00; Stop 10/16/16 at 18:01; Status DC Ondansetron HCl (Zofran Inj) 4 mg ONCE ONCE IV PUSH Last administered on 18:00; Start 10/16/16 at 18:00; Stop 10/16/16 at 18:01; Status DC Tacrolimus (Prograf) 3 mg ONCE ONCE PO Last administered on 10/16/16 18:30; Start 10/16/16 at 18:15; Stop 10/16/16 at 18:16; Status DC Acetaminophen (Tylenol) 1,000 mg ONCE ONCE PO Last administered on 10/16/16 18:45; Start 10/16/16 at 18:45; Stop 10/16/16 at 18:46; Status DC Mycophenolate Mofetil 500 mg 500 mg ONCE PO Last administered on 10/16/16 20: 32; Start 10/16/16 at 18:45; Stop 10/17/16 at 10:44; Status DC Piperacillin Sod/ Tazobactam Sod 50 ml @ 100 mls/hr ONCE ONCE IV Last administered on 10/16/16 18:45; Start 10/16/16 at 18:45; Stop 10/17/16 at 13:44 ; Status DC Vancomycin HCl/ Sodium Chloride (Vancomycin Inj/ NS 250 ml Inj) 250 ml @ 250 mls/hr ONCE ONCE IV Last administered on 10/16/16 18:45; Start 10/16/16 at 18 :45; Stop 10/16/16 at 19:44; Status DC Hydromorphone HCl (Dilaudid Pf Inj) 1 mg ONCE ONCE IV PUSH Last administered on 10/16/16 19:15; Start 10/16/16 at 19:15; Stop 10/16/16 at 19:16; Status DC Sodium Chloride (NS Flush) 2 ml UNSCH PRN IV FLUSH FLUSH AFTER USING IV ACCESS ; Start 10/16/16 at 19:30 Sodium Chloride (NS Flush) 2 ml BID IV FLUSH Last administered on 10/23/16 09: 00; Start 10/16/16 at 21:00 Naloxone HCl (Narcan Inj) 0.4 mg UNSCH PRN IV SEE LABEL COMMENTS; Start at 19:30 Hydromorphone HCl 1 mg 1 mg Q4H PRN IV PUSH pain >5 Last administered on 21:07; Start 10/17/16 at 02:00; Stop 10/22/16 at 11:08; Status DC Piperacillin Sod/ Tazobactam Sod 100 ml @ 200 mls/hr Q6H IV Last administered on 10/17/16 12:56; Start 10/17/16 at 02:00; Stop 10/17/16 at 13:44; Status DC Pharmacy Profile Note (Vancomycin Consult Pharmacy) 0 ml @ 0 mls/hr UNSCH OTHER ; Start 10/17/16 at 02:00; Stop 10/19/16 at 14:48; Status DC Clonidine (Catapres) 0.1 mg DAILY PO Last administered on 10/23/16 09:14; Start 10/17/16 at 09:00 Docusate Sodium (Colace) 100 mg BID PO Last administered on 10/23/16 09:15; Start 10/17/16 at 09:00 Furosemide (Lasix) 20 mg DAILY PO Last administered on 10/22/16 07:57; Start 10/17/16 at 09:00; Stop 10/22/16 at 14:07; Status DC Isosorbide Mononitrate (Imdur) 30 mg DAILY@07 PO Last administered on 06:11; Start 10/17/16 at 07:00 Labetalol HCl (Trandate) 200 mg BID PO Last administered on 10/23/16 09:14; Start 10/17/16 at 09:00 Lorazepam (Ativan) 3 mg HS PO Last administered on 10/22/16 21:07; Start 10/17 at 21:00 Mycophenolate Mofetil (Cellcept) 500 mg BID PO Last administered on 10/17/16 08:30; Start 10/17/16 at 09:00; Stop 10/17/16 at 16:03; Status DC Nifedipine (Procardia Xl) 30 mg HS PO Last administered on 10/22/16 21:07; Start 10/17/16 at 21:00 Prednisone (Deltasone) 5 mg DAILY PO Last administered on 10/23/16 09:14; Start 10/17/16 at 09:00 Pregabalin (Lyrica) 25 mg TID PO Last administered on 10/23/16 12:47; Start at 09:00 Sodium Bicarbonate (Sodium Bicarbonate) 650 mg BIDPC PO Last administered on 09:14; Start 10/17/16 at 09:00 Tacrolimus (Prograf) 3 mg Q12H PO Last administered on 10/17/16 02:46; Start 10/17/16 at 02:30; Stop 10/17/16 at 10:41; Status DC Albuterol/ Ipratropium (Duoneb Neb) 1 ampule Q6HR NEB NEB Last administered on 10/18/16 15:23; Start 10/17/16 at 04:00; Stop 10/18/16 at 18:54; Status DC Albuterol/ Ipratropium (Duoneb Neb) 1 ampule Q2HR NEB PRN NEB wheezing; Start 10/17/16 at 02:30 Dextrose (D50w (Vial) Inj) 50 ml UNSCH PRN IV HYPOGLYCEMIA-SEE COMMENTS; Start 10/17/16 at 02:30 Glucagon (Glucagon Inj) 1 mg UNSCH PRN OTHER HYPOGLYCEMIA-SEE COMMENTS; Start 10/17/16 at 02:30 Insulin Aspart (NovoLOG SUPPLEMENTAL SCALE) 1 ACHS SLIDING SCALE SQ Last administered on 10/23/16 12:50; Start 10/17/16 at 07:00 Heparin Sodium (Porcine) 5000 units 5,000 units Q8HR SQ Last administered on 6/ 20/17at 14:48; Start 10/17/16 at 14:00 Vancomycin HCl/ Sodium Chloride (Vancomycin Inj/ NS 250 ml Inj) 250 ml @ 250 mls/hr ONCE ONCE IV Last administered on 10/17/16 09:43; Start 10/17/16 at 10 :00; Stop 10/17/16 at 10:59; Status DC Sodium Polystyrene Sulfonate (Kayexalate Liq) 15 gm ONCE ONCE PO Last administered on 10/17/16 12:54; Start 10/17/16 at 10:30; Stop 10/17/16 at 10:31 ; Status DC Tacrolimus 3 mg 3 mg BID@06,18 PO Last administered on 10/20/16 06:00; Start 10/17/16 at 18:00; Stop 10/20/16 at 14:19; Status DC Cefepime HCl/ Sodium Chloride (Maxipime Inj/NS Inj) 100 ml @ 200 mls/hr Q24H IV Last administered on 10/18/16 14:14; Start 10/17/16 at 14:00; Stop at 14:48; Status DC Mycophenolate Mofetil 500 mg 500 mg BID@06,18 PO Last administered on 05:12; Start 10/17/16 at 18:00; Stop 10/23/16 at 15:26; Status DC Sodium Bicarbonate/ Sodium Chloride (Sodium Bicarbonate 8.4% Inj/1/2 NS 1000 ml Inj) 1,075 ml @ 100 mls/hr [id number] IV Last administered on 10/19/16 06:08; Start 10/17/16 at 21:00; Stop 10/19/16 at 13:15; Status DC Tolvaptan 15 mg 15 mg ONCE ONCE PO Last administered on 10/17/16 22:06; Start 10/17/16 at 20:00; Stop 10/17/16 at 20:01; Status DC Vancomycin HCl/ Sodium Chloride (Vancomycin Inj/ NS 500 ml Inj) 515 ml @ 250 mls/hr ONCE ONCE IV Last administered on 10/18/16 12:56; Start 10/18/16 at 12 :00; Stop 10/18/16 at 14:03; Status DC Sodium Chloride (Baby [place] Saline 0.65% Marco Drp/ [place]) 2 drop UNSCH PRN EACH NARE dryness; Start 10/18/16 at 19:00; Stop 10/18/16 at 19:41; Status DC Phenol (Chloraseptic [place]) 2 spray Q2H PRN OROPHARYNG sore throat Last administered on 10/18/16 22:19; Start 10/18/16 at 19:00 Sodium Chloride 2 spray 2 spray UNSCH PRN NASAL DRYNESS; Start 10/18/16 at 19: 41 Micafungin Sodium/ Sodium Chloride (Mycamine Inj/NS Inj) 100 ml @ 100 mls/hr Q24H IV Last administered on 10/22/16 16:13; Start 10/19/16 at 16:00 Loratadine (Claritin) 5 mg DAILY PO Last administered on 10/22/16 07:56; Start 10/20/16 at 12:00 Miscellaneous (Pill Splitter) 1 ea UNSCH PRN OTHER SEE LABEL COMMENTS; Start at 11:15 Amoxicillin/ Clavulanate Potassium (Augmentin) 500 mg Q8HR PO Last administered on 10/23/16 14:47; Start 10/20/16 at 14:00 Tacrolimus 3 mg 3 mg BID@06,18 PO Last administered on 10/23/16 05:11; Start 10/20/16 at 18:00; Status Hold Fluconazole/ Sodium Chloride (Diflucan 200 Mg Premix Bag) 100 ml @ 100 mls/hr Q24H IV Last administered on 10/22/16 16:14; Start 10/20/16 at 17:00; Stop at 15:51; Status DC Insulin Detemir (Levemir Inj) 10 units Q12HR SQ Last administered on 10/23/16 09:24; Start 10/22/16 at 21:00 Acetaminophen/ Hydrocodone Bitart ([place] 5-325 Mg) 1 tab Q4H PRN PO pain 3-10 Last administered on 10/23/16 05:12; Start 10/22/16 at 11:15 Furosemide (Lasix) 20 mg BIDAC PO Last administered on 10/23/16 06:11; Start 10/22/16 at 16:00 Lorazepam 1 mg 1 mg ONCE ONCE IV PUSH Last administered on 10/23/16 09:42; Start 10/23/16 at 09:45; Stop 10/23/16 at 09:46; Status DC Fluconazole/ Sodium Chloride (Diflucan 400 Mg Premix Bag) 200 ml @ 100 mls/hr Q24H IV ; Start 10/23/16 at 17:00 Other Results Laboratory Tests Test 10/22/16 10/23/16 07:31 05:13 Sodium Level 132 MEQ/L 135 MEQ/L Potassium Level 5.4 MEQ/L 5.1 MEQ/L Chloride Level 103 MEQ/L 105 MEQ/L Carbon Dioxide Level 17.9 MEQ/L 19.7 MEQ/L Anion Gap 11 MEQ/L 10 MEQ/L Blood Urea Nitrogen 65 MG/DL 62 MG/DL Creatinine 2.34 MG/DL 2.36 MG/DL Estimat Glomerular Filtration 28 ML/MIN 28 ML/MIN Rate Random Glucose 235 MG/DL 171 MG/DL Calcium Level 9.2 MG/DL 9.3 MG/DL Phosphorus Level 2.2 MG/DL Albumin 2.8 GM/DL Exam-Podiatry Constitutional General appearance: comfortable Nutritional status: normal Orientation: alert and oriented x3 Dermatological Exam Skin Temp - Right: Within Normal Limits Skin Texture - Right: Within Normal Limits Skin Elasticity - Right: Within Normal Limits Skin Tugor - Right: Within Normal Limits Hair Growth - Right: Within Normal Limits Pigmentation - Right: Within Normal Limits Skin Temp - Left: Within Normal Limits Skin Texture - Left: Within Normal Limits Skin Elasticity - Left: Within Normal Limits Skin Tugor - Left: Within Normal Limits Hair Growth - Left: Within Normal Limits Pigmentation - Left: Within Normal Limits Other: Scars, Surgery,Injury Nail avulsion site left hallux is healing well. No signs of infection or cellulitis. No signs of infection or tenderness of the first interspace Vascular/Lymphatic Exam R Dorsails Pedis: Palpable L Dorsails Pedis: Palpable R Posterior Tibial: Palpable L Posterior Tibial: Palpable Neurologic Exam Present on right: Tingling, Paraesthesia Present on left: Tingling, Paraesthesia Musculoskeletal Exam Details Osteoarthritis of the left first MPJ Muscle Strength Dorsiflexion (Right): Normal Plantarflexion (Right): Normal Inversion (Right): Normal Eversion (Right): Normal Digital (Right): Normal Dorsiflexion (Left): Normal Plantarflexion (Left): Normal Inversion (Left): Normal Eversion (Left): Normal Digital (Left): Normal Foot Range of Motion Dorsiflexion (Right): Normal Plantarflexion (Right): Normal Inversion (Right): Normal Eversion (Right): Normal Digital (Right): Normal Dorsiflexion (Left): Normal Plantarflexion (Left): Normal Inversion (Left): Normal Eversion (Left): Normal Digital (Left): Normal Assessment & Plan Diagnosis: (1) Foot infection Status: Resolved (2) DM (diabetes mellitus) Status: Chronic (3) Foreign body in left foot Status: Chronic A/P PLAN: No need to do anything with the foreign body. All foot problems have resolved. We'll follow up from time to time as needed. Problem Qualifiers (1) DM (diabetes mellitus): Qualified Code: E11.42 - Type 2 diabetes mellitus with diabetic polyneuropathy , without long-term current use of insulin (2) Foreign body in left foot: Qualified Code: S90.852D - Foreign body in left foot, subsequent encounter Chung Matos DPM Oct 23, 2016 16:37
[2016-10-23] MEDS: FLUCONAZOLE/NACL 400 MG/200 ML IV SCH (18:11)
[2016-10-23] MEDS: MICAFUNGIN INJ 150 MG in SODIUM CHLORIDE 0.9% INJ 100 ML IV SCH (21:28)
[2016-10-23] MEDS: NIFEdipine 30 MG SUSTAINED RELEASE TAB PO SCH (21:32)
[2016-10-23] MEDS: LORazepam 1 MG TAB PO SCH (21:32)
[2016-10-24] VITALS (9 sets, daily range): BP systolic 145–182; BP diastolic 67–80; PULSE 56–66; RESP 16–20; TEMP 97–98.6; O2SAT 91–97
[2016-10-24] MEDS: ISOSORBIDE MONONITRATE 30 MG TAB PO SCH (06:06)
[2016-10-24] MEDS: FUROSEMIDE 20 MG TAB PO SCH ×2 (06:06→16:56)
[2016-10-24] MEDS: AMOXICILLIN/CLAVULANATE K 500 MG TAB PO SCH ×3 (06:07→20:36)
[2016-10-24] MEDS: INSULIN ASPART SUPPLEMENTAL SCALE SQ SCH ×4 (06:07→20:44)
[2016-10-24 07:22] LABS: BICARBONATE 18.5 MEQ/L (21.0-32.0); HEMATOCRIT 33.1 % (39.0-51.0); MEAN CELL VOLUME 82.8 FL (80.0-100.0); MEAN CORPUSCULAR HGB CONC 33.8 % (32.0-36.0); PLATELET COUNT 273 TH/MM3 (150-450); POTASSIUM 5.5 MEQ/L (3.5-5.1); RED BLOOD COUNT 3.99 MIL/MM3 (4.50-5.90); RED CELL DISTRIBUTION WIDTH 14.9 % (11.6-17.2); REVIEW FLAG FINAL; WHITE BLOOD COUNT 9.1 TH/MM3 (4.0-11.0)
[2016-10-24] MEDS: cloNIDine HCL 0.1 MG TAB PO SCH (09:20)
[2016-10-24] MEDS: DOCUSATE SODIUM 100 MG CAP PO SCH ×2 (09:20→20:35)
[2016-10-24] MEDS: LABETALOL HCL 200 MG TAB PO SCH ×2 (09:20→20:36)
[2016-10-24] MEDS: PREGABALIN 25 MG CAP PO SCH ×3 (09:20→17:16)
[2016-10-24] MEDS: LORATADINE 10 MG TAB PO SCH (09:20)
[2016-10-24] MEDS: predniSONE 5 MG TAB PO SCH (09:20)
[2016-10-24] MEDS: SODIUM BICARBONATE 650 MG TAB PO SCH ×2 (09:20→17:16)
[2016-10-24] MEDS: SODIUM CHLORIDE 0.9% FLUSH 10 ML FLUSH IV FLUSH SCH ×2 (09:21→20:34)
[2016-10-24] MEDS: INSULIN DETEMIR 100 UNITS/ML VIAL SQ SCH ×2 (09:29→20:49)
--- NOTE | 2016-10-24 10:37 | PD.RAD ---
Post Procedure Progress Note Pre Procedure Diagnosis: (1) Sepsis Post Procedure Diagnosis: (1) Sepsis Procedure Date: Oct 24, 2016 Supervising Radiologist: Niall Nam Proceduralist/Assist: Te Vasquez, RT(R), Michelle Shipley RT(R)() Anesthesia: Local Plan of Activity Patient to Unit: Nursing Unit Patient Condition: Good Additional Comments: L2-3 puncture. Opening Pressure of 22 cmH20. Clear csf. See PACS Report for procedural detail/treatment Niall Nam MD Oct 24, 2016 10:37
--- NOTE | 2016-10-24 11:07 | RADRPT ---
EXAM DATE/TIME: 10/24/2016 10:21 [facility] COMPARISON: No previous studies available for comparison. INDICATIONS : Patient is in need of a lumbar puncture for evaluation of CSF due to persistent headaches. MEDICAL HISTORY : History of hepatitis C, HTN, DM, AFIB, COPD, PAD, CHF, hyperlipidemia, Sam's esophagus. SURGICAL HISTORY : History of bilateral carotid endarterectomy, renal transplant, left foot abscess resection, right kne e arthroscopy, ureteral stent placement, left AVF. ENCOUNTER: Initial ACUITY: 3 weeks PAIN SCORE: 5/10 LOCATION: lower back LUMBAR PUNCTURE TIME: 1026 hours FLUORO TIME: 0.3 minutes IMAGE SERIES: 0 ACCESS LEVEL: L2-3 OPENING PRESSURE: 22 cm of water CLOSING PRESSURE: Not requested. FLUID: 15 cc of clear CSF was collected and sent to the laboratory for analysis. PROCEDURE : 1. Fluoroscopic guided lumbar puncture. 2. Recording of opening pressure. The risks, benefits and alternatives to the procedure were explained and verbal and written consent w as obtained. The site was prepped in sterile fashion. Full sterile technique was used, including ca p, mask, sterile gloves and gown and a large sterile sheet. Hand hygiene and 2% chlorhexidine and/or betadine/alcohol prep was utilized per protocol for cutaneous antisepsis. The skin and subcutaneous tissues were infiltrated with local anesthetic solution. With fluoroscopic guidance the lumbar thecal sac was punctured at the above level described above and the opening pressure was recorded. The above described fluid was removed without difficulty. The patient tolerated the procedure well and there were no complications. CONCLUSION: Uncomplicated fluoroscopically guided lumbar puncture with pressures as above. Niall Nam MD on October 24, 2016 at 11:04 Board Certified Radiologist. This report was verified electronically.
[2016-10-24 12:19] LABS: GROSS BLOOD TUBE #1 0 (0); GROSS BLOOD TUBE #2 0 (0); GROSS BLOOD TUBE #3 0 (0); GROSS BLOOD TUBE #4 0 (0); SUPERNATE COLOR TUBE #1 CLEAR (CLEAR); SUPERNATE COLOR TUBE #2 CLEAR (CLEAR); SUPERNATE COLOR TUBE #3 CLEAR (CLEAR); SUPERNATE COLOR TUBE #4 CLEAR (CLEAR); VOLUME TUBE # 1 2.5 ML
[2016-10-24 12:20] LABS: CSF LYMPHOCYTES 83 %; CSF MONOCYTES 17 %; CSF NEUTROPHILS 0 %; WBC TUBE #4 2 /MM3 (0-10)
[2016-10-24] MEDS: ACETAMINOPHEN/HYDROcodone 325 MG/5 MG TAB PO PRN ×2 (13:32→20:35)
--- NOTE | 2016-10-24 13:35 | HHI.NPPN ---
Subjective History of Present Illness 66 year old with kidney transplant, HTN.DM not feeling well, has Left foot infection Additional Remarks Renal function is better. All the notes were reviewed. On Diflucan. Also on Augmentin and Micafungin. Complains of neck pain post LP Review of Systems General Constitutional: Fatigue Objective Data Data 10/23/16 10/24/16 19:00 07:00 Intake Total 480 ml 746 ml Output Total 1200 ml 875 ml Balance -720 ml -129 ml Intake Oral 480 ml 640 ml IV Total 106 ml Output Urine Total 1200 ml 875 ml # Bowel Movements 1 0 Vital Signs Date Time Temp Pulse Resp B/P Pulse Ox O2 Delivery O2 Flow Rate FiO2 10/24/16 12:00 97.9 59 18 145/67 91 10/24/16 08:53 66 10/24/16 08:53 Room Air 10/24/16 08:00 97.5 62 20 164/80 92 10/24/16 04:00 97.7 62 18 157/72 97 10/24/16 00:00 98.6 57 16 151/67 94 10/24/16 00:00 Room Air 10/23/16 21:35 Room Air 10/23/16 20:00 98.4 63 18 178/77 96 10/23/16 20:00 57 10/23/16 17:38 94 21 10/23/16 16:00 97.7 60 18 159/78 95 -: 10/24/16 0602 10/24/16 0602 Microbiology 10/24/16 Gram Stain - Final, Resulted 10/24/16 CSF Culture, Resulted Pending 10/24/16 Fungal Smear, Received Pending 10/24/16 Fungal Culture, Received Pending Physical Exam General Appearance: Well Developed, Well Nourished Neck Neck Exam: Neck Supple Pulmonary Resp Exam: Clear Bilaterally, Breath Sounds Equal Cardiology CV Exam: Regular, Normal Sinus Rhythm Gastrointestinal/Abdomen GI Exam: Soft, Non-Tender, Bowel Sounds Present Extremeties Extremities Exam: Moderate Edema Neurologic Neuro Exam: Alert Assessment/Plan Problem List: (1) Kidney transplant status, cadaveric Plan: Renal function is better. Cr 2.27 On Prednisone 5 mg daily. hold off CellCept edema better on Lasix 20 mg bid Tacrolimus level 18.2 due to Diflucan hold Tacrolimus dose follow level BC from 10/13 growing Cryptococcus LP done on Diflucan Micafungin (2) DM (diabetes mellitus) Plan: Continue monitor blood glucose (3) Hypertension Plan: BP is stable. Cardiology note reviewed. Low EF is noted. (4) Sepsis Plan: ID following. Diflucan. Monitor Prograf level. Problem Qualifiers (1) DM (diabetes mellitus): Qualified Code: E11.42 - Type 2 diabetes mellitus with diabetic polyneuropathy , without long-term current use of insulin Stacy Dias MD Oct 24, 2016 13:35
[2016-10-24] MEDS ORDERED: SODIUM CHLORID 0.9% 500 ML INJ 500 ML IV ONE (15:45)
[2016-10-24] MEDS ORDERED: ACETAMINOPHEN 500 MG CPLT PO ONE (16:00)
--- NOTE | 2016-10-24 16:55 | HHI.PR ---
Subjective Remarks pt evaluated earlier this pm. Pt was complaining of neck pain, rating it a 10/10. just had one pain pill 1 hr before I came in denies any CP/headaches/lightheadedness or dizziness/nausea or vomiting/SOB Objective Vitals Vital Signs Date Time Temp Pulse Resp B/P Pulse Ox O2 Delivery O2 Flow Rate FiO2 10/24/16 12:00 97.9 59 18 145/67 91 10/24/16 08:53 66 10/24/16 08:53 Room Air 10/24/16 08:00 97.5 62 20 164/80 92 10/24/16 04:00 97.7 62 18 157/72 97 10/24/16 00:00 98.6 57 16 151/67 94 10/24/16 00:00 Room Air 10/23/16 21:35 Room Air 10/23/16 20:00 98.4 63 18 178/77 96 10/23/16 20:00 57 10/23/16 17:38 94 21 I/O 10/23/16 10/23/16 10/23/16 10/24/16 10/24/16 10/24/16 07:00 15:00 23:00 07:00 15:00 23:00 Intake Total 480 ml 240 ml 506 ml Output Total 400 ml 1200 ml 375 ml 500 ml Balance -400 ml -720 ml -135 ml 6 ml Intake Oral 480 ml 240 ml 400 ml IV Total 106 ml Output Urine Total 400 ml 1200 ml 375 ml 500 ml # Bowel Movements 1 0 0 Result Diagram: 10/24/16 0602 10/24/16 0602 Imaging Last Impressions Lumbar Puncture Fluoroscopy 10/24/16 0000 Signed Impressions: Service Date/Time: Monday, October 24, 2016 10:21 - CONCLUSION: Uncomplicated fluoroscopically guided lumbar puncture with pressures as above. Niall Nam MD Brain MRI 10/23/16 0000 Signed Impressions: Service Date/Time: Sunday, October 23, 2016 10:02 - CONCLUSION: 1. No acute intracranial abnormality. 2. No acute infarction. 3. Prominent vascular channel adjacent to the left insular cortex. Chung Handley MD Lower Extremity Ultrasound 10/22/16 0000 Signed Impressions: Service Date/Time: Saturday, October 22, 2016 11:46 - CONCLUSION: 1. No DVT. 2. Superficial thrombus in the left lesser saphenous vein. 3. Fluid collection seen around the transplant right kidney. Derrek Lopez MD Foot X-Ray 10/22/16 0000 Signed Impressions: Service Date/Time: Saturday, October 22, 2016 12:28 - CONCLUSION: 1. Loss of cortical definition at the proximal lateral aspect of the 1st proximal phalanx concerning for some possible destruction in this region. There is underlying chronic change at this area. 2. 0.9 cm linear metallic foreign body seen in the proximal plantar lateral aspect of the 1st digit soft tissues. 3. Prominent hypertrophic change at the hind foot and the mid foot. Derrek Lopez MD Renal Ultrasound 10/18/16 0000 Signed Impressions: Service Date/Time: October 20:18 - CONCLUSION: 1. Resistive indices of the transplant kidney have increased slightly in the interim and are now at the upper limits of normal. 2. No acute obstructive uropathy demonstrated. Parenchymal echogenicity within normal limits. Derrek Arriaza MD Liver Ultrasound 10/18/16 0000 Signed Impressions: Service Date/Time: October 20:01 - CONCLUSION: 1. Nonspecific hepatomegaly. 2. 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 3. Atrophied right kidney. Derrek Arriaza MD Chest X-Ray 10/16/160 Signed Impressions: Service Date/Time: Sunday, October 16, 2016 17:54 - CONCLUSION: No evidence of acute cardiopulmonary disease. Derrek Arriaza MD Objective Remarks GENERAL: This is a well-nourished, well-developed patient in [facility] NECK: pt does have good range of motion even w the pain he mentions. CARDIOVASCULAR: Regular rate and rhythm without gallops, or rubs. Systolic murmur at aortic area RESPIRATORY: Clear to auscultation. Breath sounds equal bilaterally. No wheezes GASTROINTESTINAL: Abdomen soft, non-tender, nondistended No guarding. MUSCULOSKELETAL:move extremities. NEURO: AAO X 3. answers questions appropriately Procedures Current Medications Sodium Chloride 2 ml 2 ml UNSCH PRN IVF FLUSH AFTER USING IV ACCESS; Start at 17:30; Stop 10/17/16 at 02:00; Status DC Sodium Chloride (NS 500 ml Inj) 500 ml @ 500 mls/hr ONCE ONCE IV Last administered on 10/16/16 17:30; Start 10/16/16 at 17:30; Stop 10/16/16 at 18:29 ; Status DC Morphine Sulfate (Morphine Inj) 4 mg ONCE ONCE IV PUSH Last administered on 18:00; Start 10/16/16 at 18:00; Stop 10/16/16 at 18:01; Status DC Ondansetron HCl (Zofran Inj) 4 mg ONCE ONCE IV PUSH Last administered on 18:00; Start 10/16/16 at 18:00; Stop 10/16/16 at 18:01; Status DC Tacrolimus (Prograf) 3 mg ONCE ONCE PO Last administered on 10/16/16 18:30; Start 10/16/16 at 18:15; Stop 10/16/16 at 18:16; Status DC Acetaminophen (Tylenol) 1,000 mg ONCE ONCE PO Last administered on 10/16/16 18:45; Start 10/16/16 at 18:45; Stop 10/16/16 at 18:46; Status DC Mycophenolate Mofetil 500 mg 500 mg ONCE PO Last administered on 10/16/16 20: 32; Start 10/16/16 at 18:45; Stop 10/17/16 at 10:44; Status DC Piperacillin Sod/ Tazobactam Sod 50 ml @ 100 mls/hr ONCE ONCE IV Last administered on 10/16/16 18:45; Start 10/16/16 at 18:45; Stop 10/17/16 at 13:44 ; Status DC Vancomycin HCl/ Sodium Chloride (Vancomycin Inj/ NS 250 ml Inj) 250 ml @ 250 mls/hr ONCE ONCE IV Last administered on 10/16/16 18:45; Start 10/16/16 at 18 :45; Stop 10/16/16 at 19:44; Status DC Hydromorphone HCl (Dilaudid Pf Inj) 1 mg ONCE ONCE IV PUSH Last administered on 10/16/16 19:15; Start 10/16/16 at 19:15; Stop 10/16/16 at 19:16; Status DC Sodium Chloride (NS Flush) 2 ml UNSCH PRN IV FLUSH FLUSH AFTER USING IV ACCESS ; Start 10/16/16 at 19:30 Sodium Chloride (NS Flush) 2 ml BID IV FLUSH Last administered on 10/23/16 09: 00; Start 10/16/16 at 21:00 Naloxone HCl (Narcan Inj) 0.4 mg UNSCH PRN IV SEE LABEL COMMENTS; Start at 19:30 Hydromorphone HCl 1 mg 1 mg Q4H PRN IV PUSH pain >5 Last administered on 21:07; Start 10/17/16 at 02:00; Stop 10/22/16 at 11:08; Status DC Piperacillin Sod/ Tazobactam Sod 100 ml @ 200 mls/hr Q6H IV Last administered on 10/17/16 12:56; Start 10/17/16 at 02:00; Stop 10/17/16 at 13:44; Status DC Pharmacy Profile Note (Vancomycin Consult Pharmacy) 0 ml @ 0 mls/hr UNSCH OTHER ; Start 10/17/16 at 02:00; Stop 10/19/16 at 14:48; Status DC Clonidine (Catapres) 0.1 mg DAILY PO Last administered on 10/23/16 09:14; Start 10/17/16 at 09:00 Docusate Sodium (Colace) 100 mg BID PO Last administered on 10/23/16 09:15; Start 10/17/16 at 09:00 Furosemide (Lasix) 20 mg DAILY PO Last administered on 10/22/16 07:57; Start 10/17/16 at 09:00; Stop 10/22/16 at 14:07; Status DC Isosorbide Mononitrate (Imdur) 30 mg DAILY@07 PO Last administered on 06:11; Start 10/17/16 at 07:00 Labetalol HCl (Trandate) 200 mg BID PO Last administered on 10/23/16 09:14; Start 10/17/16 at 09:00 Lorazepam (Ativan) 3 mg HS PO Last administered on 10/22/16 21:07; Start 10/17 at 21:00 Mycophenolate Mofetil (Cellcept) 500 mg BID PO Last administered on 10/17/16 08:30; Start 10/17/16 at 09:00; Stop 10/17/16 at 16:03; Status DC Nifedipine (Procardia Xl) 30 mg HS PO Last administered on 10/22/16 21:07; Start 10/17/16 at 21:00 Prednisone (Deltasone) 5 mg DAILY PO Last administered on 10/23/16 09:14; Start 10/17/16 at 09:00 Pregabalin (Lyrica) 25 mg TID PO Last administered on 10/23/16 09:14; Start at 09:00 Sodium Bicarbonate (Sodium Bicarbonate) 650 mg BIDPC PO Last administered on 09:14; Start 10/17/16 at 09:00 Tacrolimus (Prograf) 3 mg Q12H PO Last administered on 10/17/16 02:46; Start 10/17/16 at 02:30; Stop 10/17/16 at 10:41; Status DC Albuterol/ Ipratropium (Duoneb Neb) 1 ampule Q6HR NEB NEB Last administered on 10/18/16 15:23; Start 10/17/16 at 04:00; Stop 10/18/16 at 18:54; Status DC Albuterol/ Ipratropium (Duoneb Neb) 1 ampule Q2HR NEB PRN NEB wheezing; Start 10/17/16 at 02:30 Dextrose (D50w (Vial) Inj) 50 ml UNSCH PRN IV HYPOGLYCEMIA-SEE COMMENTS; Start 10/17/16 at 02:30 Glucagon (Glucagon Inj) 1 mg UNSCH PRN OTHER HYPOGLYCEMIA-SEE COMMENTS; Start 10/17/16 at 02:30 Insulin Aspart (NovoLOG SUPPLEMENTAL SCALE) 1 ACHS SLIDING SCALE SQ Last administered on 10/23/16 06:12; Start 10/17/16 at 07:00 Heparin Sodium (Porcine) 5000 units 5,000 units Q8HR SQ Last administered on 05:12; Start 10/17/16 at 14:00 Vancomycin HCl/ Sodium Chloride (Vancomycin Inj/ NS 250 ml Inj) 250 ml @ 250 mls/hr ONCE ONCE IV Last administered on 10/17/16 09:43; Start 10/17/16 at 10 :00; Stop 10/17/16 at 10:59; Status DC Sodium Polystyrene Sulfonate (Kayexalate Liq) 15 gm ONCE ONCE PO Last administered on 10/17/16 12:54; Start 10/17/16 at 10:30; Stop 10/17/16 at 10:31 ; Status DC Tacrolimus 3 mg 3 mg BID@06,18 PO Last administered on 10/20/16 06:00; Start 10/17/16 at 18:00; Stop 10/20/16 at 14:19; Status DC Cefepime HCl/ Sodium Chloride (Maxipime Inj/NS Inj) 100 ml @ 200 mls/hr Q24H IV Last administered on 10/18/16 14:14; Start 10/17/16 at 14:00; Stop at 14:48; Status DC Mycophenolate Mofetil 500 mg 500 mg BID@,18 PO Last administered on 05:12; Start 10/17/16 at 18:00 Sodium Bicarbonate/ Sodium Chloride (Sodium Bicarbonate 8.4% Inj/1/2 NS 1000 ml Inj) 1,075 ml @ 100 mls/hr [id number] IV Last administered on 10/19/16 06:08; Start 10/17/16 at 21:00; Stop 10/19/16 at 13:15; Status DC Tolvaptan 15 mg 15 mg ONCE ONCE PO Last administered on 10/17/16 22:06; Start 10/17/16 at 20:00; Stop 10/17/16 at 20:01; Status DC Vancomycin HCl/ Sodium Chloride (Vancomycin Inj/ NS 500 ml Inj) 515 ml @ 250 mls/hr ONCE ONCE IV Last administered on 10/18/16 12:56; Start 10/18/16 at 12 :00; Stop 10/18/16 at 14:03; Status DC Sodium Chloride (Baby [place] Saline 0.65% [address]/ [place]) 2 drop UNSCH PRN EACH NARE dryness; Start 10/18/16 at 19:00; Stop 10/18/16 at 19:41; Status DC Phenol (Chloraseptic [place]) 2 spray Q2H PRN OROPHARYNG sore throat Last administered on 10/18/16 22:19; Start 10/18/16 at 19:00 Sodium Chloride 2 spray 2 spray UNSCH PRN NASAL DRYNESS; Start 10/18/16 at 19: 41 Micafungin Sodium/ Sodium Chloride (Mycamine Inj/NS Inj) 100 ml @ 100 mls/hr Q24H IV Last administered on 10/22/16 16:13; Start 10/19/16 at 16:00 Loratadine (Claritin) 5 mg DAILY PO Last administered on 10/22/16 07:56; Start 10/20/16 at 12:00 Miscellaneous (Pill Splitter) 1 ea UNSCH PRN OTHER SEE LABEL COMMENTS; Start at 11:15 Amoxicillin/ Clavulanate Potassium (Augmentin) 500 mg Q8HR PO Last administered on 10/23/16 05:12; Start 10/20/16 at 14:00 Tacrolimus 3 mg 3 mg BID@06,18 PO Last administered on 10/23/16 05:11; Start 10/20/16 at 18:00 Fluconazole/ Sodium Chloride (Diflucan 200 Mg Premix Bag) 100 ml @ 100 mls/hr Q24H IV Last administered on 10/22/16 16:14; Start 10/20/16 at 17:00 Insulin Detemir (Levemir Inj) 10 units Q12HR SQ Last administered on 10/23/16 09:24; Start 10/22/16 at 21:00 Acetaminophen/ Hydrocodone Bitart ([place] 5-325 Mg) 1 tab Q4H PRN PO pain 3-10 Last administered on 10/23/16 05:12; Start 10/22/16 at 11:15 Furosemide (Lasix) 20 mg BIDAC PO Last administered on 10/23/16 06:11; Start 10/22/16 at 16:00 Lorazepam (Ativan Inj) 1 mg ONCE ONCE IV PUSH Last administered on 10/23/16 09:42; Start 10/23/16 at 09:45; Stop 10/23/16 at 09:46; Status DC A/P Assessment and Plan 66 -year-old renal transplant patient who presented with chills Fungemia -s/p Micafungi and on Diflucan. -Positive wound cultures from toenail. -Infectious disease is following and managing. -Per infectious disease LILIYA will be based on final cultures. also if + for crypto needs LP. s/p LP earlier today -MRI showed prominent vascular channel adjacent to the left insular cortex. -So far current repeat blood cultures are negative. Hyponatremia -patient given dose of Samsca. -Improved. L hallux paronychia, -failed outpatient therapy. podiatry following and evaluated pt, No need to do anything with the foreign body. All foot problems have resolved. -s/p total nail avulsion on 10/18/2016. Status post renal transplant -management per nephrology, Dr. Larissa melgar. -on home meds -renal ultrasound showed no obstruction. -Being managed by tie maker. Continues to improve. Acute on Chronic kidney disease -Status post transplant. -Web Producer is following. -on lasix. Type 2 diabetes insulin-dependent -home dosage is NovoLog sliding scale and Lantus 18 units at night. -on Levemir 10 units twice a day. Continue with insulin sliding scale. -Continue with hypoglycemic protocol. Hyperkalemia -s/p Kayexalate. -Mildly elevated. Being managed by tie maker. Sinusitis -Patient is on Augmentin. Claritin and nasal saline spray. History of congestive heart failure -2 D echo with 35% EF as of 08/20 -BNP and elevated. -Mild trace edema in a clinical area. -Echo done on 10/20/2016 showed ejection fraction 35% and aortic stenosis. -Supervisor Sewing Department consulted and since LILIYA will not be done stated follow-up when necessary. -Lasix per tie maker. Lower extremity foot/calf pain -This seems to be due to more osteoarthritis. Questionable gout. Uric acid mildly elevated. --US Doppler showed superficial thrombosis. no DVT -xray showed possible foreign body and 1st proximal phalange destruction and chronic changes. -per Dr. Matos No need to do anything with the foreign body. All foot problems have resolved. Superficial thrombosis -TEDS placed yesterday. encourage ambulation. unable to take NSAIDS due to renal disease. -improved with treatment. Aortic stenosis -moderate to severe -Follow up with his ticket printer and tagger as outpatient. DVT prophylaxis heparin on hold (hold heparin x 24hrs post LP). GI prophylaxis on pantoprazole. Discharge Planning Patient is on and IV antifungal medication pending LP final cultures. Christal Rubio MD Oct 24, 2016 16:55
[2016-10-24] MEDS: MORPHINE SULFATE 4 MG/ML INJ IV PUSH ONE ×2 (16:58→17:16)
[2016-10-24] MEDS: FLUCONAZOLE/NACL 400 MG/200 ML IV SCH (16:58)
[2016-10-24] MEDS: MICAFUNGIN INJ 150 MG in SODIUM CHLORIDE 0.9% INJ 100 ML IV SCH (16:59)
[2016-10-24] MEDS ORDERED: SODIUM POLYSTYRENE SULFONATE SUSP 15 GM/60 ML CUP PO ONE (17:00)
--- NOTE | 2016-10-24 17:34 | HHI.IDPN ---
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 Vital Signs Date Time Temp Pulse Resp B/P Pulse Ox O2 Delivery O2 Flow Rate FiO2 10/24/16 12:00 97.9 59 18 145/67 91 10/24/16 08:53 66 10/24/16 08:53 Room Air 10/24/16 08:00 97.5 62 20 164/80 92 10/24/16 04:00 97.7 62 18 157/72 97 10/24/16 00:00 98.6 57 16 151/67 94 10/24/16 00:00 Room Air 10/23/16 21:35 Room Air 10/23/16 20:00 98.4 63 18 178/77 96 10/23/16 20:00 57 10/23/16 17:38 94 21 10/23/16 10/23/16 10/24/16 15:00 23:00 07:00 Intake Total 480 ml 240 ml 506 ml Output Total 1200 ml 375 ml 500 ml Balance -720 ml -135 ml 6 ml Intake Oral 480 ml 240 ml 400 ml IV Total 106 ml Output Urine Total 1200 ml 375 ml 500 ml # Bowel Movements 1 0 0 . Laboratory Tests Test 10/24/16 06:02 White Blood Count 9.1 TH/MM3 Red Blood Count 3.99 MIL/MM3 Hemoglobin 11.2 GM/DL Hematocrit 33.1 % Mean Corpuscular Volume 82.8 FL Mean Corpuscular Hemoglobin 28.0 PG Mean Corpuscular Hemoglobin 33.8 % Concent Red Cell Distribution Width 14.9 % Platelet Count 273 TH/MM3 Mean Platelet Volume 8.3 FL Laboratory Tests Test 10/23/16 10/24/16 05:13 06:02 Sodium Level 135 MEQ/L 135 MEQ/L Potassium Level 5.1 MEQ/L 5.5 MEQ/L Chloride Level 105 MEQ/L 106 MEQ/L Carbon Dioxide Level 19.7 MEQ/L 18.5 MEQ/L Anion Gap 10 MEQ/L 11 MEQ/L Blood Urea Nitrogen 62 MG/DL 57 MG/DL Creatinine 2.36 MG/DL 2.27 MG/DL Estimat Glomerular Filtration 28 ML/MIN 29 ML/MIN Rate Random Glucose 171 MG/DL 197 MG/DL Calcium Level 9.3 MG/DL 9.6 MG/DL Microbiology Date/Time Procedure Status Source Growth 10/24/16 10:26 Gram Stain - Final Resulted Cerebral Spinal Fluid Lumbar Puncture 10/24/16 10:26 CSF Culture Resulted Cerebral Spinal Fluid Lumbar Puncture Pending 10/24/16 10:26 Fungal Smear - Final Resulted Cerebral Spinal Fluid Lumbar Puncture NO FUNGAL ELEMENTS SEEN. 10/24/16 10:26 Fungal Culture Resulted Cerebral Spinal Fluid Lumbar Puncture Pending Imaging Last Impressions Brain MRI 10/23/16 0000 Signed Impressions: Service Date/Time: Sunday, October 23, 2016 10:02 - CONCLUSION: 1. No acute intracranial abnormality. 2. No acute infarction. 3. Prominent vascular channel adjacent to the left insular cortex. Chung Handley MD Lower Extremity Ultrasound 10/22/16 0000 Signed Impressions: Service Date/Time: Saturday, October 22, 2016 11:46 - CONCLUSION: 1. No DVT. 2. Superficial thrombus in the left lesser saphenous vein. 3. Fluid collection seen around the transplant right kidney. Derrek Lopez MD Foot X-Ray 10/22/16 0000 Signed Impressions: Service Date/Time: Saturday, October 22, 2016 12:28 - CONCLUSION: 1. Loss of cortical definition at the proximal lateral aspect of the 1st proximal phalanx concerning for some possible destruction in this region. There is underlying chronic change at this area. 2. 0.9 cm linear metallic foreign body seen in the proximal plantar lateral aspect of the 1st digit soft tissues. 3. Prominent hypertrophic change at the hind foot and the mid foot. Derrek Lopze MD Renal Ultrasound 10/18/16 0000 Signed Impressions: Service Date/Time: October 20:18 - CONCLUSION: 1. Resistive indices of the transplant kidney have increased slightly in the interim and are now at the upper limits of normal. 2. No acute obstructive uropathy demonstrated. Parenchymal echogenicity within normal limits. Derrek Arriaza MD Liver Ultrasound 10/18/16 0000 Signed Impressions: Service Date/Time: October 20:01 - CONCLUSION: 1. Nonspecific hepatomegaly. 2. 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 3. Atrophied right kidney. Derrek Arriaza MD Chest X-Ray 10/16/16 1730 Signed Impressions: Service Date/Time: Sunday, October 16, 2016 17:54 - CONCLUSION: No evidence of acute cardiopulmonary disease. Derrek Arriaza MD Physical Exam CONSTITUTIONAL/GENERAL: This is an adequately nourished patient, in no apparent distress. TUBES/LINES/DRAINS: LUE AV fistula with good thrill, no e/o infx SKIN: No jaundice, rashes, or lesions. HEENT: no facial edema no conjunctival injections hemorrages PERRL EOMI CARDIOVASCULAR: Regular rate and rhythm without murmurs, gallops, or rubs. RESPIRATORY/CHEST: Symmetric, unlabored respirations. Clear to auscultation. Breath sounds equal bilaterally. No wheezes, rales, or rhonchi. GASTROINTESTINAL: Abdomen soft, non-tender, nondistended. No hepato-splenomegaly , or palpable masses. No guarding. Bowel sounds present. GENITOURINARY: Without palpable bladder distension. MUSCULOSKELETAL: Extremities without clubbing, cyanosis, or edema R foot L foot with dressing in place NEUROLOGICAL: Awake and alert. Motor and sensory grossly within normal limits. Follows commands. Clear speech Moves all extremities. PSYCHIATRIC: No obvious anxiety/depression. no apparent hallucinations or other psychotic thought process. Assessment & Plan Remarks Disseminated cryptococcus neophormans Headache, r/o crypto meninitis: prelim LP data not sugg of crypto meningitis CHF exacebrbation - 2 D echo with 35% EF as of 08/20 Mod to severe on 2 D echo ? L hallux paronichim, sp naiol removal, clx P - mold in clx / dermatophite cough - serial CXRs improved and showed no infiltrate on today's film ? initial crypto PNA Fluid collection seen around the transplant right kidney. - stable, dw Dr Dias FU blood clx untill final cont fluconazole dc micafungin IV cont augmentin - for MSSA mild DFI, sinusitis x 2 weeks fu SCF crypto AG fu with senior portfolio manager for severe dw Dr Larissa montenegro @ b/s Nancy Centeno MD Oct 24, 2016 17:34
[2016-10-24] MEDS: LORazepam 1 MG TAB PO SCH (20:34)
[2016-10-24] MEDS: NIFEdipine 30 MG SUSTAINED RELEASE TAB PO SCH (20:36)
[2016-10-24] MEDS: HEPARIN SODIUM - SQ 10,000 UNITS/ML VIAL SQ SCH (22:00)
[2016-10-25] VITALS (8 sets, daily range): BP systolic 137–178; BP diastolic 64–79; PULSE 60–81; RESP 16–20; TEMP 97.8–98.8; O2SAT 92–98
[2016-10-25] MEDS: ACETAMINOPHEN/HYDROcodone 325 MG/5 MG TAB PO PRN (05:56)
[2016-10-25] MEDS: INSULIN ASPART SUPPLEMENTAL SCALE SQ SCH ×4 (05:56→21:08)
[2016-10-25] MEDS: AMOXICILLIN/CLAVULANATE K 500 MG TAB PO SCH ×3 (05:56→21:03)
[2016-10-25] MEDS: FUROSEMIDE 20 MG TAB PO SCH ×2 (05:56→08:45)
[2016-10-25] MEDS: ISOSORBIDE MONONITRATE 30 MG TAB PO SCH ×2 (05:56→08:46)
[2016-10-25] MEDS: HEPARIN SODIUM - SQ 10,000 UNITS/ML VIAL SQ SCH ×3 (05:57→21:03)
[2016-10-25] MEDS ORDERED: MORPHINE SULFATE 4 MG/ML INJ IV PUSH ONE (07:45)
[2016-10-25] MEDS: cloNIDine HCL 0.1 MG TAB PO SCH (08:45)
[2016-10-25] MEDS: SODIUM BICARBONATE 650 MG TAB PO SCH ×2 (08:45→17:05)
[2016-10-25] MEDS: LABETALOL HCL 200 MG TAB PO SCH ×2 (08:45→21:02)
[2016-10-25] MEDS: PREGABALIN 25 MG CAP PO SCH ×3 (08:46→17:05)
[2016-10-25] MEDS: predniSONE 5 MG TAB PO SCH (08:46)
[2016-10-25] MEDS: DOCUSATE SODIUM 100 MG CAP PO SCH ×2 (08:46→21:02)
[2016-10-25] MEDS: LORATADINE 10 MG TAB PO SCH (08:46)
[2016-10-25] MEDS: SODIUM CHLORIDE 0.9% FLUSH 10 ML FLUSH IV FLUSH SCH ×2 (08:49→21:01)
[2016-10-25] MEDS: INSULIN DETEMIR 100 UNITS/ML VIAL SQ SCH ×2 (08:53→21:09)
[2016-10-25 08:59] LABS: BICARBONATE 20.4 MEQ/L (21.0-32.0); POTASSIUM 5.4 MEQ/L (3.5-5.1)
[2016-10-25] MEDS: ACETAMINOPHEN/HYDROcodone 325 MG/10 MG TAB PO PRN ×2 (09:55→21:04)
--- NOTE | 2016-10-25 12:51 | HHI.PR ---
Subjective Remarks Pt seen earlier today, complaining of an excrutiating neck pain w headache. this has been going on since the LP. laying flat makes it feel better. has been sipping on water and coffee. discussed w RN, IR is aware. Objective Vitals Vital Signs Date Time Temp Pulse Resp B/P Pulse Ox O2 Delivery O2 Flow Rate FiO2 10/25/16 09:00 98 21 10/25/16 08:00 Room Air 10/25/16 04:00 98.0 60 18 166/77 97 10/25/16 03:47 Room Air 10/25/16 00:08 Room Air 10/25/16 00:00 98.8 62 18 178/76 96 10/24/16 21:03 Room Air 10/24/16 20:04 58 10/24/16 20:00 97.5 56 20 182/79 96 10/24/16 18:00 94 21 10/24/16 16:00 97.0 57 18 164/80 94 I/O 10/24/16 10/24/16 10/24/16 10/25/16 10/25/16 10/25/16 07:00 15:00 23:00 07:00 15:00 23:00 Intake Total 506 ml 480 ml 588 ml 240 ml Output Total 500 ml 1000 ml 100 ml 100 ml Balance 6 ml -520 ml 488 ml 140 ml Intake Oral 400 ml 480 ml 480 ml 240 ml IV Total 106 ml 108 ml Output Urine Total 500 ml 1000 ml 100 ml 100 ml # Bowel Movements 0 1 Result Diagram: 10/24/16 0602 10/25/16 0705 Imaging Last Impressions Lumbar Puncture Fluoroscopy 10/24/16 0000 Signed Impressions: Service Date/Time: Monday, October 24, 2016 10:21 - CONCLUSION: Uncomplicated fluoroscopically guided lumbar puncture with pressures as above. Niall Nam MD Brain MRI 10/23/16 0000 Signed Impressions: Service Date/Time: Sunday, October 23, 2016 10:02 - CONCLUSION: 1. No acute intracranial abnormality. 2. No acute infarction. 3. Prominent vascular channel adjacent to the left insular cortex. Chung Handley MD Lower Extremity Ultrasound 10/22/16 0000 Signed Impressions: Service Date/Time: Saturday, October 22, 2016 11:46 - CONCLUSION: 1. No DVT. 2. Superficial thrombus in the left lesser saphenous vein. 3. Fluid collection seen around the transplant right kidney. Derrek Lopez MD Foot X-Ray 10/22/16 0000 Signed Impressions: Service Date/Time: Saturday, October 22, 2016 12:28 - CONCLUSION: 1. Loss of cortical definition at the proximal lateral aspect of the 1st proximal phalanx concerning for some possible destruction in this region. There is underlying chronic change at this area. 2. 0.9 cm linear metallic foreign body seen in the proximal plantar lateral aspect of the 1st digit soft tissues. 3. Prominent hypertrophic change at the hind foot and the mid foot. Derrek Lopez MD Renal Ultrasound 10/18/16 0000 Signed Impressions: Service Date/Time: October 20:18 - CONCLUSION: 1. Resistive indices of the transplant kidney have increased slightly in the interim and are now at the upper limits of normal. 2. No acute obstructive uropathy demonstrated. Parenchymal echogenicity within normal limits. Derrek Arriaza MD Liver Ultrasound 10/18/16 0000 Signed Impressions: Service Date/Time: October 20:01 - CONCLUSION: 1. Nonspecific hepatomegaly. 2. 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 3. Atrophied right kidney. Derrek Arriaza MD Chest X-Ray 10/16/160 Signed Impressions: Service Date/Time: Sunday, October 16, 2016 17:54 - CONCLUSION: No evidence of acute cardiopulmonary disease. Derrek Arriaza MD Objective Remarks GENERAL: This is a well-nourished, well-developed patient in [facility] NECK: pt does have good range of motion even w the pain he mentions. palpation of the neck musculature brings relief. CARDIOVASCULAR: Regular rate and rhythm. Systolic murmur at aortic area RESPIRATORY: Clear to auscultation. Breath sounds equal bilaterally. No wheezes GASTROINTESTINAL: Abdomen soft, non-tender, nondistended No guarding. MUSCULOSKELETAL:move extremities. NEURO: AAO X 3. answers questions appropriately Procedures Current Medications Sodium Chloride 2 ml 2 ml UNSCH PRN IVF FLUSH AFTER USING IV ACCESS; Start at 17:30; Stop 10/17/16 at 02:00; Status DC Sodium Chloride (NS 500 ml Inj) 500 ml @ 500 mls/hr ONCE ONCE IV Last administered on 10/16/16 17:30; Start 10/16/16 at 17:30; Stop 10/16/16 at 18:29 ; Status DC Morphine Sulfate (Morphine Inj) 4 mg ONCE ONCE IV PUSH Last administered on 18:00; Start 10/16/16 at 18:00; Stop 10/16/16 at 18:01; Status DC Ondansetron HCl (Zofran Inj) 4 mg ONCE ONCE IV PUSH Last administered on 18:00; Start 10/16/16 at 18:00; Stop 10/16/16 at 18:01; Status DC Tacrolimus (Prograf) 3 mg ONCE ONCE PO Last administered on 10/16/16 18:30; Start 10/16/16 at 18:15; Stop 10/16/16 at 18:16; Status DC Acetaminophen (Tylenol) 1,000 mg ONCE ONCE PO Last administered on 10/16/16 18:45; Start 10/16/16 at 18:45; Stop 10/16/16 at 18:46; Status DC Mycophenolate Mofetil 500 mg 500 mg ONCE PO Last administered on 10/16/16 20: 32; Start 10/16/16 at 18:45; Stop 10/17/16 at 10:44; Status DC Piperacillin Sod/ Tazobactam Sod 50 ml @ 100 mls/hr ONCE ONCE IV Last administered on 10/16/16 18:45; Start 10/16/16 at 18:45; Stop 10/17/16 at 13:44 ; Status DC Vancomycin HCl/ Sodium Chloride (Vancomycin Inj/ NS 250 ml Inj) 250 ml @ 250 mls/hr ONCE ONCE IV Last administered on 10/16/16 18:45; Start 10/16/16 at 18 :45; Stop 10/16/16 at 19:44; Status DC Hydromorphone HCl (Dilaudid Pf Inj) 1 mg ONCE ONCE IV PUSH Last administered on 10/16/16 19:15; Start 10/16/16 at 19:15; Stop 10/16/16 at 19:16; Status DC Sodium Chloride (NS Flush) 2 ml UNSCH PRN IV FLUSH FLUSH AFTER USING IV ACCESS ; Start 10/16/16 at 19:30 Sodium Chloride (NS Flush) 2 ml BID IV FLUSH Last administered on 10/23/16 09: 00; Start 10/16/16 at 21:00 Naloxone HCl (Narcan Inj) 0.4 mg UNSCH PRN IV SEE LABEL COMMENTS; Start at 19:30 Hydromorphone HCl 1 mg 1 mg Q4H PRN IV PUSH pain >5 Last administered on 21:07; Start 10/17/16 at 02:00; Stop 10/22/16 at 11:08; Status DC Piperacillin Sod/ Tazobactam Sod 100 ml @ 200 mls/hr Q6H IV Last administered on 10/17/16 12:56; Start 10/17/16 at 02:00; Stop 10/17/16 at 13:44; Status DC Pharmacy Profile Note (Vancomycin Consult Pharmacy) 0 ml @ 0 mls/hr UNSCH OTHER ; Start 10/17/16 at 02:00; Stop 10/19/16 at 14:48; Status DC Clonidine (Catapres) 0.1 mg DAILY PO Last administered on 10/23/16 09:14; Start 10/17/16 at 09:00 Docusate Sodium (Colace) 100 mg BID PO Last administered on 10/23/16 09:15; Start 10/17/16 at 09:00 Furosemide (Lasix) 20 mg DAILY PO Last administered on 10/22/16 07:57; Start 10/17/16 at 09:00; Stop 10/22/16 at 14:07; Status DC Isosorbide Mononitrate (Imdur) 30 mg DAILY@07 PO Last administered on 06:11; Start 10/17/16 at 07:00 Labetalol HCl (Trandate) 200 mg BID PO Last administered on 10/23/16 09:14; Start 10/17/16 at 09:00 Lorazepam (Ativan) 3 mg HS PO Last administered on 10/22/16 21:07; Start 10/17 at 21:00 Mycophenolate Mofetil (Cellcept) 500 mg BID PO Last administered on 10/17/16 08:30; Start 10/17/16 at 09:00; Stop 10/17/16 at 16:03; Status DC Nifedipine (Procardia Xl) 30 mg HS PO Last administered on 10/22/16 21:07; Start 10/17/16 at 21:00 Prednisone (Deltasone) 5 mg DAILY PO Last administered on 10/23/16 09:14; Start 10/17/16 at 09:00 Pregabalin (Lyrica) 25 mg TID PO Last administered on 10/23/16 09:14; Start at 09:00 Sodium Bicarbonate (Sodium Bicarbonate) 650 mg BIDPC PO Last administered on 09:14; Start 10/17/16 at 09:00 Tacrolimus (Prograf) 3 mg Q12H PO Last administered on 10/17/16 02:46; Start 10/17/16 at 02:30; Stop 10/17/16 at 10:41; Status DC Albuterol/ Ipratropium (Duoneb Neb) 1 ampule Q6HR NEB NEB Last administered on 10/18/16 15:23; Start 10/17/16 at 04:00; Stop 10/18/16 at 18:54; Status DC Albuterol/ Ipratropium (Duoneb Neb) 1 ampule Q2HR NEB PRN NEB wheezing; Start 10/17/16 at 02:30 Dextrose (D50w (Vial) Inj) 50 ml UNSCH PRN IV HYPOGLYCEMIA-SEE COMMENTS; Start 10/17/16 at 02:30 Glucagon (Glucagon Inj) 1 mg UNSCH PRN OTHER HYPOGLYCEMIA-SEE COMMENTS; Start 10/17/16 at 02:30 Insulin Aspart (NovoLOG SUPPLEMENTAL SCALE) 1 ACHS SLIDING SCALE SQ Last administered on 10/23/16 06:12; Start 10/17/16 at 07:00 Heparin Sodium (Porcine) 5000 units 5,000 units Q8HR SQ Last administered on 05:12; Start 10/17/16 at 14:00 Vancomycin HCl/ Sodium Chloride (Vancomycin Inj/ NS 250 ml Inj) 250 ml @ 250 mls/hr ONCE ONCE IV Last administered on 10/17/16 09:43; Start 10/17/16 at 10 :00; Stop 10/17/16 at 10:59; Status DC Sodium Polystyrene Sulfonate (Kayexalate Liq) 15 gm ONCE ONCE PO Last administered on 10/17/16 12:54; Start 10/17/16 at 10:30; Stop 10/17/16 at 10:31 ; Status DC Tacrolimus 3 mg 3 mg BID@06,18 PO Last administered on 10/20/16 06:00; Start 10/17/16 at 18:00; Stop 10/20/16 at 14:19; Status DC Cefepime HCl/ Sodium Chloride (Maxipime Inj/NS Inj) 100 ml @ 200 mls/hr Q24H IV Last administered on 10/18/16 14:14; Start 10/17/16 at 14:00; Stop at 14:48; Status DC Mycophenolate Mofetil 500 mg 500 mg BID@,18 PO Last administered on 05:12; Start 10/17/16 at 18:00 Sodium Bicarbonate/ Sodium Chloride (Sodium Bicarbonate 8.4% Inj/1/2 NS 1000 ml Inj) 1,075 ml @ 100 mls/hr [id number] IV Last administered on 10/19/16 06:08; Start 10/17/16 at 21:00; Stop 10/19/16 at 13:15; Status DC Tolvaptan 15 mg 15 mg ONCE ONCE PO Last administered on 10/17/16 22:06; Start 10/17/16 at 20:00; Stop 10/17/16 at 20:01; Status DC Vancomycin HCl/ Sodium Chloride (Vancomycin Inj/ NS 500 ml Inj) 515 ml @ 250 mls/hr ONCE ONCE IV Last administered on 10/18/16 12:56; Start 10/18/16 at 12 :00; Stop 10/18/16 at 14:03; Status DC Sodium Chloride (Baby [place] Saline 0.65% [facility] [address]/ [place]) 2 drop UNSCH PRN EACH NARE dryness; Start 10/18/16 at 19:00; Stop 10/18/16 at 19:41; Status DC Phenol (Chloraseptic [place]) 2 spray Q2H PRN OROPHARYNG sore throat Last administered on 10/18/16 22:19; Start 10/18/16 at 19:00 Sodium Chloride 2 spray 2 spray UNSCH PRN NASAL DRYNESS; Start 10/18/16 at 19: 41 Micafungin Sodium/ Sodium Chloride (Mycamine Inj/NS Inj) 100 ml @ 100 mls/hr Q24H IV Last administered on 10/22/16 16:13; Start 10/19/16 at 16:00 Loratadine (Claritin) 5 mg DAILY PO Last administered on 10/22/16 07:56; Start 10/20/16 at 12:00 Miscellaneous (Pill Splitter) 1 ea UNSCH PRN OTHER SEE LABEL COMMENTS; Start at 11:15 Amoxicillin/ Clavulanate Potassium (Augmentin) 500 mg Q8HR PO Last administered on 10/23/16 05:12; Start 10/20/16 at 14:00 Tacrolimus 3 mg 3 mg BID@06,18 PO Last administered on 10/23/16 05:11; Start 10/20/16 at 18:00 Fluconazole/ Sodium Chloride (Diflucan 200 Mg Premix Bag) 100 ml @ 100 mls/hr Q24H IV Last administered on 10/22/16 16:14; Start 10/20/16 at 17:00 Insulin Detemir (Levemir Inj) 10 units Q12HR SQ Last administered on 10/23/16 09:24; Start 10/22/16 at 21:00 Acetaminophen/ Hydrocodone Bitart ([place] 5-325 Mg) 1 tab Q4H PRN PO pain 3-10 Last administered on 10/23/16 05:12; Start 10/22/16 at 11:15 Furosemide (Lasix) 20 mg BIDAC PO Last administered on 10/23/16 06:11; Start 10/22/16 at 16:00 Lorazepam (Ativan Inj) 1 mg ONCE ONCE IV PUSH Last administered on 10/23/16 09:42; Start 10/23/16 at 09:45; Stop 10/23/16 at 09:46; Status DC A/P Assessment and Plan 66 -year-old renal transplant patient who presented with chills Fungemia -s/p Micafungi and on IV Diflucan. -Positive wound cultures from toenail. -Infectious disease is following and managing. -Per infectious disease LILIYA will be based on final cultures. also if + for crypto needs LP. s/p LP earlier today -MRI showed prominent vascular channel adjacent to the left insular cortex. -So far current repeat blood cultures are negative. and spinal fluid cx neg x 24 hrs Hyponatremia -patient given dose of [place]. -Improved. L hallux paronychia, -failed outpatient therapy. podiatry following and evaluated pt, No need to do anything with the foreign body. All foot problems have resolved. -s/p total nail avulsion on 10/18/2016. Status post renal transplant -management per nephrology, Dr. Larissa melgar. -on home meds -renal ultrasound showed no obstruction. -Being managed by assisted sales representative. Continues to improve. Acute on Chronic kidney disease -Status post transplant. -Landscape Foreman is following. -on lasix. Type 2 diabetes insulin-dependent -home dosage is NovoLog sliding scale and Lantus 18 units at night. -on Levemir 10 units twice a day. Continue with insulin sliding scale. -Continue with hypoglycemic protocol. Hyperkalemia -s/p Kayexalate. -Mildly elevated. Being managed by assisted sales representative. Sinusitis -Patient is on Augmentin. Claritin and nasal saline spray. History of congestive heart failure -2 D echo with 35% EF as of 08/20 -BNP and elevated. -Mild trace edema in a clinical area. -Echo done on 10/20/2016 showed ejection fraction 35% and aortic stenosis. -Superintendent Of Generation consulted and since LILIYA will not be done stated follow-up when necessary. -Lasix per assisted sales representative. Lower extremity foot/calf pain -This seems to be due to more osteoarthritis. Questionable gout. Uric acid mildly elevated. --US Doppler showed superficial thrombosis. no DVT -xray showed possible foreign body and 1st proximal phalange destruction and chronic changes. -per Dr. Matos No need to do anything with the foreign body. All foot problems have resolved. Superficial thrombosis -TEDS placed yesterday. encourage ambulation. unable to take NSAIDS due to renal disease. -improved with treatment. Aortic stenosis -moderate to severe -Follow up with his windows server specialist as outpatient. DVT prophylaxis heparin resumed GI prophylaxis on pantoprazole. Discharge Planning Patient is on IV antifungal medication pending LP final cultures. Christal Rubio MD Oct 25, 2016 12:51
--- NOTE | 2016-10-25 13:21 | HHI.NPPN ---
Subjective History of Present Illness 66 year old with kidney transplant, HTN.DM not feeling well, has Left foot infection Additional Remarks Renal function is better. All the notes were reviewed. On Diflucan. Also on Augmentin and Micafungin. Complains of neck pain post LP Review of Systems General Constitutional: Fatigue Objective Data Data 10/24/16 10/25/16 19:00 07:00 Intake Total 480 ml 828 ml Output Total 1000 ml 200 ml Balance -520 ml 628 ml Intake Oral 480 ml 720 ml IV Total 108 ml Output Urine Total 1000 ml 200 ml # Bowel Movements 1 Vital Signs Date Time Temp Pulse Resp B/P Pulse Ox O2 Delivery O2 Flow Rate FiO2 10/25/16 09:00 98 21 10/25/16 08:00 Room Air 10/25/16 04:00 98.0 60 18 166/77 97 10/25/16 03:47 Room Air 10/25/16 00:08 Room Air 10/25/16 00:00 98.8 62 18 178/76 96 10/24/16 21:03 Room Air 10/24/16 20:04 58 10/24/16 20:00 97.5 56 20 182/79 96 10/24/16 18:00 94 21 10/24/16 16:00 97.0 57 18 164/80 94 -: 10/24/16 0602 10/25/16 0705 Physical Exam General Appearance: Well Developed, Well Nourished Neck Neck Exam: Neck Supple Pulmonary Resp Exam: Clear Bilaterally, Breath Sounds Equal Cardiology CV Exam: Regular, Normal Sinus Rhythm Gastrointestinal/Abdomen GI Exam: Soft, Non-Tender, Bowel Sounds Present Extremeties Extremities Exam: Moderate Edema Neurologic Neuro Exam: Alert Assessment/Plan Problem List: (1) Kidney transplant status, cadaveric Plan: Renal function is better. Cr 2.1 k 5.4 discussed he did not wants K restriction in diet told to avoid canned fruits, Banana, Oranges, Tomato On Prednisone 5 mg daily. hold off CellCept edema better on Lasix 20 mg bid Tacrolimus level 14.7 due to Diflucan Tacrolimus dose cut to 1 mg q 12 follow [id number] BC from 10/13 growing Cryptococcus LP done complication neck pain Radiology aware on Diflucan Micafungin (2) DM (diabetes mellitus) Plan: Continue monitor blood glucose (3) Hypertension Plan: BP is stable. Cardiology note reviewed. Low EF is noted. (4) Sepsis Plan: ID following. Diflucan. Monitor Prograf level. Problem Qualifiers (1) DM (diabetes mellitus): Qualified Code: E11.42 - Type 2 diabetes mellitus with diabetic polyneuropathy , without long-term current use of insulin Stacy Dias MD Oct 25, 2016 13:21
[2016-10-25] MEDS: MORPHINE SULFATE 4 MG/ML INJ IV PUSH PRN ×2 (13:59→23:22)
[2016-10-25] MEDS: TACROLIMUS 1 MG CAP PO SCH (17:06)
[2016-10-25] MEDS: FLUCONAZOLE/NACL 400 MG/200 ML IV SCH (17:06)
[2016-10-25] MEDS: LORazepam 1 MG TAB PO SCH (21:03)
[2016-10-25] MEDS: NIFEdipine 60 MG SUSTAINED RELEASE TAB PO SCH (21:03)
[2016-10-26] VITALS (11 sets, daily range): BP systolic 139–180; BP diastolic 67–87; PULSE 58–72; RESP 18–33; TEMP 97–98.7; O2SAT 66–98
[2016-10-26] MEDS: ACETAMINOPHEN/HYDROcodone 325 MG/10 MG TAB PO PRN ×2 (04:20→09:19)
[2016-10-26] MEDS: INSULIN ASPART SUPPLEMENTAL SCALE SQ SCH ×5 (06:00→21:23)
[2016-10-26] MEDS: FUROSEMIDE 20 MG TAB PO SCH (06:07)
[2016-10-26] MEDS: TACROLIMUS 1 MG CAP PO SCH ×2 (06:07→17:37)
[2016-10-26] MEDS: HEPARIN SODIUM - SQ 10,000 UNITS/ML VIAL SQ SCH ×3 (06:08→21:23)
[2016-10-26] MEDS: ISOSORBIDE MONONITRATE 30 MG TAB PO SCH (06:08)
[2016-10-26] MEDS: AMOXICILLIN/CLAVULANATE K 500 MG TAB PO SCH ×3 (06:08→21:23)
[2016-10-26] MEDS: MORPHINE SULFATE 4 MG/ML INJ IV PUSH PRN (06:14)
[2016-10-26] MEDS: LORATADINE 10 MG TAB PO SCH ×2 (09:00→14:41)
[2016-10-26] MEDS: SODIUM CHLORIDE 0.9% FLUSH 10 ML FLUSH IV FLUSH SCH ×2 (09:00→20:23)
[2016-10-26] MEDS: DOCUSATE SODIUM 100 MG CAP PO SCH ×2 (09:00→20:23)
[2016-10-26] MEDS: PREGABALIN 25 MG CAP PO SCH ×3 (09:00→17:36)
[2016-10-26] MEDS: cloNIDine HCL 0.1 MG TAB PO SCH ×2 (09:00→14:41)
[2016-10-26] MEDS: INSULIN DETEMIR 100 UNITS/ML VIAL SQ SCH ×2 (09:00→21:22)
[2016-10-26] MEDS ORDERED: FUROSEMIDE 40 MG/4 ML VIAL ONE (09:43)
[2016-10-26 10:00] LABS: BLOOD GAS BASE EXCESS -3.9 mmol/L (-2-2); BLOOD GAS CARBOXYHEMOGLOBIN 1.3 % (0-4); BLOOD GAS HCO3 21 mmol/L (22-26); BLOOD GAS METHEMOGLOBIN 0.7 % (0-2); BLOOD GAS O2 HGB SATURATION 87 % (90-100); BLOOD GAS OXYGEN CONTENT 14.4 Vol % (12.0-20.0); BLOOD GAS PCO2 37 mmHg (38-42); BLOOD GAS PO2 62 mmHg (61-120); BLOOD GAS TOTAL HGB 11.7 G/DL (12.0-16.0); CRITICAL VALUE YES; DRAW SITE RT RADIAL; FIO2 100 %; LITER FLOW 15 L/M; NUMBER OF ARTERIAL PUNCTURES 1; OXYGEN DEVICE NRBR; STAT YES; TEMP CORR TO 98.6; ULNAR PULSE PRESENT
[2016-10-26 10:10] LABS: AUTOMATED NEUTROPHIL # 7.9 TH/MM3 (1.8-7.7); BASOPHIL # 0.1 TH/MM3 (0-0.2); BASOPHIL % 0.8 % (0.0-2.0); EOSINOPHIL # 0.1 TH/MM3 (0-0.4); EOSINOPHIL % 0.7 % (0.0-4.0); HEMO FLAGS DIFF FINAL; LYMPH % 12.6 % (9.0-44.0); LYMPHOCYTE # 1.3 TH/MM3 (1.0-4.8); MEAN CELL VOLUME 84.6 FL (80.0-100.0); MONO % 9.5 % (0.0-8.0); NEUT % 76.4 % (16.0-70.0); PLATELET COUNT 364 TH/MM3 (150-450); RED BLOOD COUNT 4.49 MIL/MM3 (4.50-5.90); RED CELL DISTRIBUTION WIDTH 15.3 % (11.6-17.2); WHITE BLOOD COUNT 10.3 TH/MM3 (4.0-11.0)
[2016-10-26 10:20] LABS: APTT (PATIENT) 29.7 SEC (24.3-30.1); INTERNATIONAL NORMALIZED RATIO 1.1 RATIO; PROTHROMBIN TIME - PATIENT 12.5 SEC (9.8-11.6)
[2016-10-26 10:31] LABS: BLOOD, URINE NEG (NEG); COMMENT (UR) CATH-CULT NOT IND; CULTURE IF INDICATED CATH CULTURE NOT IND; GLUCOSE,URINE 70 mg/dL (NEG); KETONE, URINE NEG (NEG); MUCUS URINE FEW /lpf (OCC); NITRITE,URINE NEG (NEG); PH, URINE 6.5 (5.0-8.5); SQUAMOUS EPITHELIAL CELL URINE <1 /hpf (0-5); URINE COLOR YELLOW (YELLW/STRAW)
[2016-10-26 10:39] LABS: ANION GAP 8 MEQ/L (5-15); BICARBONATE 21.8 MEQ/L (21.0-32.0); BLOOD UREA NITROGEN 40 MG/DL (7-18); CHLORIDE 103 MEQ/L (98-107); GLOMERULAR FILTRATION RATE 30 ML/MIN (>89); POTASSIUM 5.8 MEQ/L (3.5-5.1); SODIUM (NA) 133 MEQ/L (136-145)
--- NOTE | 2016-10-26 10:40 | RADRPT ---
EXAM DATE/TIME: 10/26/2016 10:09 [facility] COMPARISON: CHEST SINGLE AP, October 16, 2016, 17:54. INDICATIONS : Congestion/ Shortness of Breath MEDICAL HISTORY : Chronic obstructive pulmonary disease. Diabetes mellitus type II. SURGICAL HISTORY : Right renal transplant, R. ureteral stent, Bilateral carotid ENCOUNTER: Subsequent ACUITY: 2 weeks PAIN SCORE: 0/10 LOCATION: Bilateral chest FINDINGS: The study is abnormal. Diffuse interstitial changes are present in both lungs and cardiomegaly. The re is no alveolar consolidation, pleural effusion or pneumothorax. The portion of the bony skeleton v isualized is unremarkable. CONCLUSION: Marked deterioration in the appearance of the chest is significant interstitial edema . Terry Magallon MD FACR on October 26, 2016 at 10:36 Board Certified Radiologist. This report was verified electronically.
--- NOTE | 2016-10-26 13:34 | HHI.NPPN ---
Subjective History of Present Illness 66 year old with kidney transplant, HTN.DM not feeling well, has Left foot infection Additional Remarks transferred to ICU he has CHF Review of Systems General Constitutional: Fatigue Objective Data Data 10/25/16 10/26/16 19:00 07:00 Intake Total 600 ml 2220 ml Output Total 625 ml 2495 ml Balance -25 ml -275 ml Intake Oral 600 ml 2220 ml IV Total 0 ml Output Urine Total 625 ml 2495 ml # Bowel Movements 1 1 Vital Signs Date Time Temp Pulse Resp B/P Pulse Ox O2 Delivery O2 Flow Rate FiO2 10/26/16 09:20 92 15.00 10/26/16 09:00 Nasal Cannula 10/26/16 08:00 97.6 72 18 168/77 91 10/26/16 04:00 97.5 65 20 139/67 94 10/26/16 00:13 98.5 63 20 150/87 94 10/25/16 22:14 Nasal Cannula 3.00 10/25/16 20:00 97.8 81 20 169/79 94 10/25/16 19:45 Room Air 10/25/16 18:52 69 10/25/16 16:00 97.9 63 16 143/68 92 -: 10/26/16 0955 10/26/16 0955 Microbiology 10/26/16 Aerobic Blood Culture, Received Pending 10/26/16 Anaerobic Blood Culture, Received Pending 10/26/16 Aerobic Blood Culture, Received Pending 10/26/16 Anaerobic Blood Culture, Received Pending Physical Exam General Appearance: Well Developed, Well Nourished Neck Neck Exam: Neck Supple Pulmonary Resp Exam: Clear Bilaterally, Breath Sounds Equal Cardiology CV Exam: Regular, Normal Sinus Rhythm Gastrointestinal/Abdomen GI Exam: Soft, Non-Tender, Bowel Sounds Present Extremeties Extremities Exam: Moderate Edema Neurologic Neuro Exam: Alert Assessment/Plan Problem List: (1) Kidney transplant status, cadaveric Plan: Renal function is better. Cr 2.2 k 5.8 On Prednisone 5 mg daily. hold off CellCept Lasix 80 mg given SOB improved need Kayexalate Tacrolimus 1 mg q 12 follow BC from 10/13 growing Cryptococcus LP done complication neck pain Radiology aware on Diflucan (2) DM (diabetes mellitus) Plan: Continue monitor blood glucose (3) Hypertension Plan: BP is stable. Cardiology note reviewed. Low EF is noted. (4) Sepsis Plan: ID following. Diflucan. Monitor Prograf level. Problem Qualifiers (1) DM (diabetes mellitus): Qualified Code: E11.42 - Type 2 diabetes mellitus with diabetic polyneuropathy , without long-term current use of insulin Stacy Dias MD Oct 26, 2016 13:34
[2016-10-26] MEDS ORDERED: SODIUM POLYSTYRENE SULFONATE SUSP 15 GM/60 ML CUP PO ONE (14:00)
[2016-10-26] MEDS: SODIUM BICARBONATE 650 MG TAB PO SCH ×2 (14:41→17:37)
[2016-10-26] MEDS: LABETALOL HCL 200 MG TAB PO SCH ×2 (14:41→20:23)
[2016-10-26] MEDS: predniSONE 5 MG TAB PO SCH (14:41)
--- NOTE | 2016-10-26 14:55 | PD.CONS ---
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 Subsequently he developed headaches and on 10/24 a lumbar puncture was done to evaluate for disseminated crypto. After the lumbar puncture, he had worsening of his neck pain and questionable headache which was questionably positional. Anesthesia was initially consulted for possible blood patch for post dural puncture headache. Today, he was rapid response for acute hypoxia. I evaluated the patient on the floor for the rapid response. He was in severe distress. His SPO2 is 88% on a nonrebreather. Of note, he does have an echo this admission demonstrates moderate to severe aortic stenosis with a moderately depressed EF of 35-40%. The remainder of the history of present illness is very difficult to obtain due to the patient's respiratory distress. He denies chest pain. Denies cough or sputum production. Does still endorse a headache, although it appears to be much less positional at this time. The remainder the review of systems which is limited by his acute respiratory distress is negative. Review of Systems ROS Limitations: Clinical Condition Respiratory: COMPLAINS OF: Shortness of breath, DENIES: Cough, Sputum production Cardiovascular: DENIES: Chest pain Past Family Social History Allergies: Coded Allergies: No Known Allergies (Unverified , 10/12/16) Past Medical History Hypertension Diabetes Atrial fibrillation Peripheral arterial disease Carotid artery diseasestatus post bilateral CEA Renal transplant [id number] COPD CHF Hyperlipidemia Anxiety Hepatitis C Neuropathy Arthritis Past Surgical History Renal transplant on the [id number] Left foot abscess resectionApril 2016 Bilateral CEA Ureteral stents placement Right knee arthroscopy Left AV fistula placement Reported Medications A complete home medication list is unobtainable due to the patient's clinical condition. This was reviewed in the chart. Active Ordered Medications See MAR Family History brother and sister- hypoglycemic, dm Social History quit smoking 14yrs ago no etoh or drugs lives with , drives occasionally Physical Exam Vital Signs Vital Signs Date Time Temp Pulse Resp B/P Pulse Ox O2 Delivery O2 Flow Rate FiO2 10/26/16 09:20 92 15.00 10/26/16 09:00 Nasal Cannula 10/26/16 08:07 66 10/26/16 08:00 97.6 72 18 168/77 91 10/26/16 04:00 97.5 65 20 139/67 94 10/26/16 00:13 98.5 63 20 150/87 94 10/25/16 22:14 Nasal Cannula 3.00 10/25/16 20:00 97.8 81 20 169/79 94 10/25/16 19:45 Room Air 10/25/16 18:52 69 10/25/16 16:00 97.9 63 16 143/68 92 Physical Exam Briefly, on my evaluation this is a middle-aged male in severe respiratory distress. He is very tachypneic. His granger and large neck circumference prevent a full evaluation of JVD. His SPO2 is 88% on a nonrebreather. He is using accessory muscles to breathe. On the monitor he has a normal rate, regular rhythm, it appears to be normal sinus rhythm. He has 1+ pitting edema of the lower extremities. He has a left great toe that is wrapped in a dressing without overt drainage. Laboratory Laboratory Tests Test 10/26/16 10/26/16 10/26/16 07:48 09:25 09:55 Tacrolimus (Prograf) Level 5.6 Blood Gas Puncture Site RT RADIAL Blood Gas Patient Temperature 98.6 Blood Gas HCO3 21 Blood Gas Base Excess -3.9 Blood Gas Oxygen Saturation 87 Arterial Blood pH 7.37 Arterial Blood Partial 37 Pressure CO2 Arterial Blood Partial 62 Pressure O2 Arterial Blood Oxygen Content 14.4 Arterial Blood 1.3 Carboxyhemoglobin Arterial Blood Methemoglobin 0.7 Blood Gas Hemoglobin 11.7 Oxygen Delivery Device NRBR Blood Gas Liter Flow 15 Blood Gas Inspired Oxygen 100 White Blood Count 10.3 Red Blood Count 4.49 Hemoglobin 12.6 Hematocrit 38.0 Mean Corpuscular Volume 84.6 Mean Corpuscular Hemoglobin 28.0 Mean Corpuscular Hemoglobin 33.0 Concent Red Cell Distribution Width 15.3 Platelet Count 364 Mean Platelet Volume 8.1 Neutrophils (%) (Auto) 76.4 Lymphocytes (%) (Auto) 12.6 Monocytes (%) (Auto) 9.5 Eosinophils (%) (Auto) 0.7 Basophils (%) (Auto) 0.8 Neutrophils # (Auto) 7.9 Lymphocytes # (Auto) 1.3 Monocytes # (Auto) 1.0 Eosinophils # (Auto) 0.1 Basophils # (Auto) 0.1 CBC Comment DIFF FINAL Differential Comment Prothrombin Time 12.5 Prothromb Time International 1.1 Ratio Activated Partial 29.7 Thromboplast Time Urine Color YELLOW Urine Turbidity CLEAR Urine pH 6.5 Urine Specific [place] 1.014 Urine Protein TRACE Urine Glucose (UA) 70 Urine Ketones NEG Urine Occult Blood NEG Urine Nitrite NEG Urine Bilirubin NEG Urine Urobilinogen LESS THAN 2.0 Urine Leukocyte Esterase NEG Urine RBC LESS THAN 1 Urine WBC 1 Urine Squamous Epithelial <1 Cells Urine Mucus FEW Microscopic Urinalysis Comment CATH-CULT NOT IND Sodium Level 133 Potassium Level 5.8 Chloride Level 103 Carbon Dioxide Level 21.8 Anion Gap 8 Blood Urea Nitrogen 40 Creatinine 2.23 Estimat Glomerular Filtration 30 Rate Random Glucose 278 Lactic Acid Level 1.2 Calcium Level 10.0 Troponin I LESS THAN 0.02 B-Type Natriuretic Peptide 2059 Date/Time Procedure Status Source Growth 10/26/16 10:53 Aerobic Blood Culture Received Blood Peripheral Pending 10/26/16 10:53 Anaerobic Blood Culture Received Blood Peripheral Pending 10/24/16 10:26 Gram Stain - Final Resulted Cerebral Spinal Fluid Lumbar Puncture 10/24/16 10:26 CSF Culture - Preliminary Resulted Cerebral Spinal Fluid Lumbar Puncture NO GROWTH IN 48 HOURS. 10/24/16 10:26 Fungal Smear - Final Resulted Cerebral Spinal Fluid Lumbar Puncture NO FUNGAL ELEMENTS SEEN. 10/24/16 10:26 Fungal Culture Resulted Cerebral Spinal Fluid Lumbar Puncture Pending Result Diagram: 10/26/16 0955 10/26/16 0955 Imaging Last Impressions Chest X-Ray 10/26/16 0000 Signed Impressions: Service Date/Time: Wednesday, October 26, 2016 10:09 - CONCLUSION: Marked deterioration in the appearance of the chest is significant interstitial edema. Terry Magallon MD FACR Lumbar Puncture Fluoroscopy 10/24/16 0000 Signed Impressions: Service Date/Time: Monday, October 24, 2016 10:21 - CONCLUSION: Uncomplicated fluoroscopically guided lumbar puncture with pressures as above. Niall Nam MD Brain MRI 10/23/16 0000 Signed Impressions: Service Date/Time: Sunday, October 23, 2016 10:02 - CONCLUSION: 1. No acute intracranial abnormality. 2. No acute infarction. 3. Prominent vascular channel adjacent to the left insular cortex. Chung Handley MD Lower Extremity Ultrasound 10/22/16 0000 Signed Impressions: Service Date/Time: Saturday, October 22, 2016 11:46 - CONCLUSION: 1. No DVT. 2. Superficial thrombus in the left lesser saphenous vein. 3. Fluid collection seen around the transplant right kidney. Derrek Lopez MD Foot X-Ray 10/22/16 0000 Signed Impressions: Service Date/Time: Saturday, October 22, 2016 12:28 - CONCLUSION: 1. Loss of cortical definition at the proximal lateral aspect of the 1st proximal phalanx concerning for some possible destruction in this region. There is underlying chronic change at this area. 2. 0.9 cm linear metallic foreign body seen in the proximal plantar lateral aspect of the 1st digit soft tissues. 3. Prominent hypertrophic change at the hind foot and the mid foot. Derrek Lopez MD Renal Ultrasound 10/18/16 0000 Signed Impressions: Service Date/Time: October 20:18 - CONCLUSION: 1. Resistive indices of the transplant kidney have increased slightly in the interim and are now at the upper limits of normal. 2. No acute obstructive uropathy demonstrated. Parenchymal echogenicity within normal limits. Derrek Arriaza MD Liver Ultrasound 10/18/16 0000 Signed Impressions: Service Date/Time: October 20:01 - CONCLUSION: 1. Nonspecific hepatomegaly. 2. 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 3. Atrophied right kidney. Derrek Arriaza MD Assessment and Plan Assessment and Plan Assessment: 66yM s/p renal transplant, immunocompromised, with cryptococcal fungemia, headache, severe aortic stenosis, and now acute hypoxic respiratory failure. The hypoxia is most likely secondary to decompensated heart failure secondary to valvulopathy from his severe aortic stenosis. His BNP is severely elevated. I have given him lasix 80mg iv x 1 and placed him on BiPAP. for now he is critically ill. we will transfer him to the ICU. Plan: Acute hypoxic respiratory failure Mod-Severe aortic stenosis Decompensated Congestive Heart Failure secondary to Valvulopathy Moderately depressed LV systolic function -- BiPAP -- wean fio2 for goal spo2 > 90% -- lasix 80mg iv q8hr -- place carrion to monitor diuresis -- goal net -2L/24h -- may wean back to NC as tolerated if he clinically improves. -- currently, given active fungemia, is not a candidate for valve replacement or TAVR. Would recommend cardiology involvement when his acute medical problems have been stabilized, or cardiology follow-up as an outpatient. -- trend BNP -- NPO while on BiPAP. ok for meds. Headache Possible Post-dural puncture headache -- patient's headache appears much less classic presentation of PDPH this morning. Given acute fungemia and concern for possible [employer] fungal infection, combined with elevated opening pressure of 22 mmHg, we will hold off on epidural blood patch. -- will hold off on PO fluids encouragement given heart failure -- ok to continue caffeine. Cryptococcal Fungemia -- continue fluconazole -- appreciate ID involvement. Dispo: admit to ICU. remains critically ill in hypoxic respiratory failure. This patient remains critically ill with one or more organ systems which are or may become a threat to life. I have spent in excess of 51 minutes discontinuously in the care and management of this patient. This time is exclusive of procedures, and includes, but is not limited to, evaluation of the patient, review of the medical record, discussions with family, consultants, nursing staff, or respiratory therapy, and documentation in the medical record. Discussed Condition With Dr. Rubio, Dr. Taryn Pedroza,Cali Hercules MD Oct 26, 2016 14:55
--- NOTE | 2016-10-26 16:16 | EKG ---
Date Performed: 10/26/2016 Time Performed: 10:28:00 PTAGE: 66 years EKG: Sinus rhythm Lead(s) unsuitable for analysis: V1 Possible left anterior fascicular block Left ventricular hypertr ophy Lateral ST-T changes may be due to hypertrophy and/or ischemia Abnormal ECG PREVIOUS TRACING 10/17/2016 @ 07.15.01 Compared to prior tracing no significant change DOCTOR: Russ Ackerman Interpretating Date/Time 10/26/2016 16:15:02
--- NOTE | 2016-10-26 16:43 | HHI.IDPN ---
Subjective Subjective Remarks pt deteriorated this am He developped suddently SOB and was put on BIPAP He co neck pain and headache since LP was done CSF not sugg of maningitis, crypto AG P No fever, but apparently was co chills earlier reports pt has episodes of confusion Antibiotics fluconasole augmentin Allergies: Coded Allergies: No Known Allergies (Unverified , 10/12/16) Objective . Vital Signs Date Time Temp Pulse Resp B/P Pulse Ox O2 Delivery O2 Flow Rate FiO2 10/26/16 12:00 97.7 66 33 165/76 66 10/26/16 09:45 97.0 72 31 180/85 98 10/26/16 09:20 92 15.00 10/26/16 09:00 Nasal Cannula 10/26/16 08:07 66 10/26/16 08:00 97.6 72 18 168/77 91 10/26/16 04:00 97.5 65 20 139/67 94 10/26/16 00:13 98.5 63 20 150/87 94 10/25/16 22:14 Nasal Cannula 3.00 10/25/16 20:00 97.8 81 20 169/79 94 10/25/16 19:45 Room Air 10/25/16 18:52 69 10/25/16 10/25/16 10/26/16 15:00 23:00 07:00 Intake Total 600 ml 1060 ml 1160 ml Output Total 625 ml 1675 ml 820 ml Balance -25 ml -615 ml 340 ml Intake Oral 600 ml 1060 ml 1160 ml IV Total 0 ml Output Urine Total 625 ml 1675 ml 820 ml # Bowel Movements 1 1 0 . Laboratory Tests Test 10/26/16 09:55 White Blood Count 10.3 TH/MM3 Red Blood Count 4.49 MIL/MM3 Hemoglobin 12.6 GM/DL Hematocrit 38.0 % Mean Corpuscular Volume 84.6 FL Mean Corpuscular Hemoglobin 28.0 PG Mean Corpuscular Hemoglobin 33.0 % Concent Red Cell Distribution Width 15.3 % Platelet Count 364 TH/MM3 Mean Platelet Volume 8.1 FL Neutrophils (%) (Auto) 76.4 % Lymphocytes (%) (Auto) 12.6 % Monocytes (%) (Auto) 9.5 % Eosinophils (%) (Auto) 0.7 % Basophils (%) (Auto) 0.8 % Neutrophils # (Auto) 7.9 TH/MM3 Lymphocytes # (Auto) 1.3 TH/MM3 Monocytes # (Auto) 1.0 TH/MM3 Eosinophils # (Auto) 0.1 TH/MM3 Basophils # (Auto) 0.1 TH/MM3 CBC Comment DIFF FINAL Differential Comment Laboratory Tests Test 10/25/16 10/26/16 07:05 09:55 Sodium Level 135 MEQ/L 133 MEQ/L Potassium Level 5.4 MEQ/L 5.8 MEQ/L Chloride Level 105 MEQ/L 103 MEQ/L Carbon Dioxide Level 20.4 MEQ/L 21.8 MEQ/L Anion Gap 10 MEQ/L 8 MEQ/L Blood Urea Nitrogen 51 MG/DL 40 MG/DL Creatinine 2.14 MG/DL 2.23 MG/DL Estimat Glomerular Filtration 31 ML/MIN 30 ML/MIN Rate Random Glucose 118 MG/DL 278 MG/DL Calcium Level 9.2 MG/DL 10.0 MG/DL Lactic Acid Level 1.2 mmol/L Troponin I LESS THAN 0.02 NG/ML B-Type Natriuretic Peptide 2060 PG/ML Microbiology Date/Time Procedure Status Source Growth 10/24/16 10:26 Gram Stain - Final Resulted Cerebral Spinal Fluid Lumbar Puncture 10/24/16 10:26 CSF Culture - Preliminary Resulted Cerebral Spinal Fluid Lumbar Puncture NO GROWTH IN 48 HOURS. 10/24/16 10:26 Fungal Smear - Final Resulted Cerebral Spinal Fluid Lumbar Puncture NO FUNGAL ELEMENTS SEEN. 10/24/16 10:26 Fungal Culture Resulted Cerebral Spinal Fluid Lumbar Puncture Pending 10/26/16 10:37 Aerobic Blood Culture Received Blood Peripheral Pending 10/26/16 10:37 Anaerobic Blood Culture Received Blood Peripheral Pending 10/26/16 10:53 Aerobic Blood Culture Received Blood Peripheral Pending 10/26/16 10:53 Anaerobic Blood Culture Received Blood Peripheral Pending Imaging Last Impressions Chest X-Ray 10/26/16 0000 Signed Impressions: Service Date/Time: Wednesday, October 26, 2016 10:09 - CONCLUSION: Marked deterioration in the appearance of the chest is significant interstitial edema. Terry Magallon MD FACR Lumbar Puncture Fluoroscopy 10/24/16 0000 Signed Impressions: Service Date/Time: Monday, October 24, 2016 10:21 - CONCLUSION: Uncomplicated fluoroscopically guided lumbar puncture with pressures as above. Niall Nam MD Brain MRI 10/23/16 Signed Impressions: Service Date/Time: Sunday, October 23, 2016 10:02 - CONCLUSION: 1. No acute intracranial abnormality. 2. No acute infarction. 3. Prominent vascular channel adjacent to the left insular cortex. Chung Handley MD Lower Extremity Ultrasound 10/22/16 Signed Impressions: Service Date/Time: Saturday, October 22, 2016 11:46 - CONCLUSION: 1. No DVT. 2. Superficial thrombus in the left lesser saphenous vein. 3. Fluid collection seen around the transplant right kidney. Derrek Lopez MD Foot X-Ray 10/22/16 Signed Impressions: Service Date/Time: Saturday, October 22, 2016 12:28 - CONCLUSION: 1. Loss of cortical definition at the proximal lateral aspect of the 1st proximal phalanx concerning for some possible destruction in this region. There is underlying chronic change at this area. 2. 0.9 cm linear metallic foreign body seen in the proximal plantar lateral aspect of the 1st digit soft tissues. 3. Prominent hypertrophic change at the hind foot and the mid foot. Derrek Lopez MD Renal Ultrasound 10/18/16 Signed Impressions: Service Date/Time: October 20:18 - CONCLUSION: 1. Resistive indices of the transplant kidney have increased slightly in the interim and are now at the upper limits of normal. 2. No acute obstructive uropathy demonstrated. Parenchymal echogenicity within normal limits. Derrek Arriaza MD Liver Ultrasound 10/18/16 Signed Impressions: Service Date/Time: October 20:01 - CONCLUSION: 1. Nonspecific hepatomegaly. 2. 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 3. Atrophied right kidney. Derrek Arriaza MD Physical Exam CONSTITUTIONAL/GENERAL: This is an adequately nourished patient, in no apparent distress. On part face BIPAP mask TUBES/LINES/DRAINS: LUE AV fistula with good thrill, no e/o infx SKIN: No jaundice, rashes, or lesions. HEENT: no facial edema no conjunctival injections hemorrages PERRL EOMI NECK: supple CARDIOVASCULAR: Regular rate and rhythm without murmurs, gallops, or rubs. RESPIRATORY/CHEST: Symmetric, unlabored respirations. Clear to auscultation. Breath sounds equal bilaterally. No wheezes, rales, or rhonchi. GASTROINTESTINAL: Abdomen soft, non-tender, nondistended. No hepato-splenomegaly , or palpable masses. No guarding. Bowel sounds present. GENITOURINARY: Without palpable bladder distension. MUSCULOSKELETAL: Extremities without clubbing, cyanosis, or edema R foot L foot wo swelling or redness L hallux nailbed wound is healing nicely no e/o infx NEUROLOGICAL: Awake and alert. Motor and sensory grossly within normal limits. Follows commands. Clear speech Moves all extremities. PSYCHIATRIC: No obvious anxiety/depression. no apparent hallucinations or other psychotic thought process. Assessment & Plan Remarks Disseminated cryptococcus neophormans Headache, r/o crypto meninitis: prelim LP data not sugg of crypto meningitis CHF exacebrbation - 2 D echo with 35% EF as of 08/20 Mod to severe on 2 D echo ? L hallux paronichim, sp naiol removal, clx withFuzarium - cw onychomycosis CXR and suddent onset nature of pt resp failure cw CHF exacerbation rather than PNA Fluid collection seen around the transplant right kidney. 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
[2016-10-26] MEDS: FUROSEMIDE 100 MG/10 ML VIAL IV PUSH SCH (17:36)
[2016-10-26] MEDS: FLUCONAZOLE/NACL 400 MG/200 ML IV SCH (17:37)
[2016-10-26] MEDS: LORazepam 1 MG TAB PO SCH (20:23)
[2016-10-26] MEDS: NIFEdipine 60 MG SUSTAINED RELEASE TAB PO SCH (21:21)
[2016-10-27] VITALS (12 sets, daily range): BP systolic 120–143; BP diastolic 60–68; PULSE 58–74; RESP 18–33; TEMP 97.4–99.6; O2SAT 94–100
[2016-10-27] MEDS: FUROSEMIDE 100 MG/10 ML VIAL IV PUSH SCH ×3 (00:19→15:51)
[2016-10-27] MEDS: ACETAMINOPHEN/HYDROcodone 325 MG/10 MG TAB PO PRN ×4 (02:39→21:45)
[2016-10-27 04:37] LABS: HEMATOCRIT 35.8 % (39.0-51.0); MEAN CORPUSCULAR HEMOGLOBIN 27.5 PG (27.0-34.0); MEAN CORPUSCULAR HGB CONC 33.1 % (32.0-36.0); PLATELET COUNT 318 TH/MM3 (150-450); RED BLOOD COUNT 4.31 MIL/MM3 (4.50-5.90); RED CELL DISTRIBUTION WIDTH 14.8 % (11.6-17.2); REVIEW FLAG FINAL; WHITE BLOOD COUNT 7.7 TH/MM3 (4.0-11.0)
[2016-10-27 04:54] LABS: BICARBONATE 24.8 MEQ/L (21.0-32.0); POTASSIUM 5.9 MEQ/L (3.5-5.1)
[2016-10-27] MEDS: TACROLIMUS 1 MG CAP PO SCH ×2 (05:20→17:52)
[2016-10-27] MEDS: AMOXICILLIN/CLAVULANATE K 500 MG TAB PO SCH ×3 (05:20→21:37)
[2016-10-27] MEDS: HEPARIN SODIUM - SQ 10,000 UNITS/ML VIAL SQ SCH ×3 (05:21→21:38)
[2016-10-27] MEDS: ISOSORBIDE MONONITRATE 30 MG TAB PO SCH (06:15)
[2016-10-27] MEDS: INSULIN ASPART SUPPLEMENTAL SCALE SQ SCH ×4 (07:00→21:00)
[2016-10-27] MEDS: MORPHINE SULFATE 4 MG/ML INJ IV PUSH PRN ×4 (07:40→23:43)
[2016-10-27] MEDS: INSULIN DETEMIR 100 UNITS/ML VIAL SQ SCH ×2 (09:00→21:49)
[2016-10-27] MEDS: SODIUM CHLORIDE 0.9% FLUSH 10 ML FLUSH IV FLUSH SCH ×2 (09:00→21:00)
[2016-10-27] MEDS: DOCUSATE SODIUM 100 MG CAP PO SCH ×2 (09:14→21:37)
[2016-10-27] MEDS: predniSONE 5 MG TAB PO SCH (09:14)
[2016-10-27] MEDS: SODIUM BICARBONATE 650 MG TAB PO SCH ×2 (09:15→17:52)
[2016-10-27] MEDS: cloNIDine HCL 0.1 MG TAB PO SCH (09:15)
[2016-10-27] MEDS: LORATADINE 10 MG TAB PO SCH (09:15)
[2016-10-27] MEDS: PREGABALIN 25 MG CAP PO SCH ×3 (09:16→17:52)
[2016-10-27] MEDS: LABETALOL HCL 200 MG TAB PO SCH ×2 (09:18→21:38)
[2016-10-27 11:08] LABS: CSF CRYPTOCOCCUS AG CONF ND (NOT DETECTD)
--- NOTE | 2016-10-27 13:01 | HHI.NPPN ---
Subjective History of Present Illness 66 year old with kidney transplant, HTN.DM not feeling well, has Left foot infection Additional Remarks doing better, c/o neck pain Review of Systems General Constitutional: Fatigue Objective Data Data 10/26/16 10/27/16 19:00 07:00 Intake Total 180 ml 568 ml Output Total 1700 ml 5225 ml Balance -1520 ml -4657 ml Intake Oral 180 ml 340 ml IV Total 228 ml Output Urine Total 1700 ml 5225 ml # Bowel Movements 0 Vital Signs Date Time Temp Pulse Resp B/P Pulse Ox O2 Delivery O2 Flow Rate FiO2 10/27/16 12:00 97.8 66 18 135/65 95 10/27/16 10:00 66 10/27/16 09:10 22 10/27/16 08:00 66 10/27/16 08:00 98.6 66 33 135/63 97 10/27/16 07:00 93 Nasal Cannula 5.00 10/27/16 06:00 62 10/27/16 04:46 94 Nasal Cannula 6.00 10/27/16 04:29 Nasal Cannula 4.00 10/27/16 04:00 59 10/27/16 04:00 99.1 60 18 120/60 96 10/27/16 02:00 99 Partial Non-Rebreather 6.00 10/27/16 02:00 58 10/27/16 00:00 99.6 60 27 143/66 100 10/27/16 00:00 60 10/27/16 00:00 100 Partial Non-Rebreather 8.00 10/26/16 22:00 58 10/26/16 20:00 97.8 66 20 150/72 97 10/26/16 20:00 97 Partial Rebreather 10.00 10/26/16 20:00 66 10/26/16 19:00 97 Partial Non-Rebreather 10.00 10/26/16 16:44 96 Partial Rebreather 12.00 10/26/16 16:00 98.7 62 30 163/77 96 -: 10/27/16 0359 10/27/16 0359 Physical Exam General Appearance: Well Developed, Well Nourished Neck Neck Exam: Neck Supple Pulmonary Resp Exam: Clear Bilaterally, Breath Sounds Equal Cardiology CV Exam: Regular, Normal Sinus Rhythm Gastrointestinal/Abdomen GI Exam: Soft, Non-Tender, Bowel Sounds Present Extremeties Extremities Exam: Moderate Edema Neurologic Neuro Exam: Alert Assessment/Plan Problem List: (1) Kidney transplant status, cadaveric Plan: Renal function is better. Cr 2.3 k 5.9 he finally had a big bowel movement On Prednisone 5 mg daily. hold off CellCept UOP 6.9 L need Kayexalate Tacrolimus 1 mg q 12 follow Tacrolimus stable 8.1 BC from 10/13 growing Cryptococcus LP done complication neck pain Radiology aware on Diflucan CSF negative for Cryptococcus (2) DM (diabetes mellitus) Plan: Continue monitor blood glucose (3) Hypertension Plan: BP is stable. Cardiology note reviewed. Low EF is noted. (4) Sepsis Plan: ID following. Diflucan. Monitor Prograf level. Problem Qualifiers (1) DM (diabetes mellitus): Qualified Code: E11.42 - Type 2 diabetes mellitus with diabetic polyneuropathy , without long-term current use of insulin Stacy Dias MD Oct 27, 2016 13:01
[2016-10-27 15:25] LABS: CRYPTOCOCCUS ANTIGEN Negative (Negative)
[2016-10-27] MEDS: FLUCONAZOLE/NACL 400 MG/200 ML IV SCH (15:56)
--- NOTE | 2016-10-27 18:32 | HHI.IDPN ---
Subjective Subjective Remarks improved On NC O2, back on thee floor co persistent neck pain crypto AG negative in CSF crypto AG negative in serum + emesis x 1 Antibiotics fluconasole augmentin Allergies: Coded Allergies: No Known Allergies (Unverified , 10/12/16) Objective . Vital Signs Date Time Temp Pulse Resp B/P Pulse Ox O2 Delivery O2 Flow Rate FiO2 10/27/16 17:18 94 Nasal Cannula 5.00 10/27/16 16:00 97.4 63 18 140/65 94 10/27/16 12:00 97.8 66 18 135/65 95 10/27/16 10:00 66 10/27/16 09:10 22 10/27/16 08:00 66 10/27/16 08:00 98.6 66 33 135/63 97 10/27/16 07:00 93 Nasal Cannula 5.00 10/27/16 06:00 62 10/27/16 04:46 94 Nasal Cannula 6.00 10/27/16 04:29 Nasal Cannula 4.00 10/27/16 04:00 59 10/27/16 04:00 99.1 60 18 120/60 96 10/27/16 02:00 99 Partial Non-Rebreather 6.00 10/27/16 02:00 58 10/27/16 00:00 99.6 60 27 143/66 100 10/27/16 00:00 60 10/27/16 00:00 100 Partial Non-Rebreather 8.00 10/26/16 22:00 58 10/26/16 20:00 97.8 66 20 150/72 97 10/26/16 20:00 97 Partial Rebreather 10.00 10/26/16 20:00 66 10/26/16 19:00 97 Partial Non-Rebreather 10.00 10/26/16 10/26/16 10/27/16 15:00 23:00 07:00 Intake Total 180 ml 435 ml 133 ml Output Total 1700 ml 3225 ml 2000 ml Balance -1520 ml -2790 ml -1867 ml Intake Oral 180 ml 240 ml 100 ml IV Total 195 ml 33 ml Output Urine Total 1700 ml 3225 ml 2000 ml # Bowel Movements 0 0 . Laboratory Tests Test 10/26/16 10/27/16 09:55 03:59 White Blood Count 10.3 TH/MM3 7.7 TH/MM3 Red Blood Count 4.49 MIL/MM3 4.31 MIL/MM3 Hemoglobin 12.6 GM/DL 11.9 GM/DL Hematocrit 38.0 % 35.8 % Mean Corpuscular Volume 84.6 FL 83.0 FL Mean Corpuscular Hemoglobin 28.0 PG 27.5 PG Mean Corpuscular Hemoglobin 33.0 % 33.1 % Concent Red Cell Distribution Width 15.3 % 14.8 % Platelet Count 364 TH/MM3 318 TH/MM3 Mean Platelet Volume 8.1 FL 8.0 FL Neutrophils (%) (Auto) 76.4 % Lymphocytes (%) (Auto) 12.6 % Monocytes (%) (Auto) 9.5 % Eosinophils (%) (Auto) 0.7 % Basophils (%) (Auto) 0.8 % Neutrophils # (Auto) 7.9 TH/MM3 Lymphocytes # (Auto) 1.3 TH/MM3 Monocytes # (Auto) 1.0 TH/MM3 Eosinophils # (Auto) 0.1 TH/MM3 Basophils # (Auto) 0.1 TH/MM3 CBC Comment DIFF FINAL Differential Comment Laboratory Tests Test 10/26/16 10/27/16 09:55 03:59 Sodium Level 133 MEQ/L 136 MEQ/L Potassium Level 5.8 MEQ/L 5.9 MEQ/L Chloride Level 103 MEQ/L 104 MEQ/L Carbon Dioxide Level 21.8 MEQ/L 24.8 MEQ/L Anion Gap 8 MEQ/L 7 MEQ/L Blood Urea Nitrogen 40 MG/DL 41 MG/DL Creatinine 2.23 MG/DL 2.32 MG/DL Estimat Glomerular Filtration 30 ML/MIN 28 ML/MIN Rate Random Glucose 278 MG/DL 117 MG/DL Lactic Acid Level 1.2 mmol/L Calcium Level 10.0 MG/DL 9.2 MG/DL Troponin I LESS THAN 0.02 NG/ML B-Type Natriuretic Peptide 2060 PG/ML 2028 PG/ML Microbiology Date/Time Procedure Status Source Growth 10/26/16 10:37 Aerobic Blood Culture - Preliminary Resulted Blood Peripheral NO GROWTH IN 1 DAY 10/26/16 10:37 Anaerobic Blood Culture - Preliminary Resulted Blood Peripheral NO GROWTH IN 1 DAY 10/26/16 10:53 Aerobic Blood Culture - Preliminary Resulted Blood Peripheral NO GROWTH IN 1 DAY 10/26/16 10:53 Anaerobic Blood Culture - Preliminary Resulted Blood Peripheral NO GROWTH IN 1 DAY Imaging Last Impressions Chest X-Ray 10/26/16 Signed Impressions: Service Date/Time: Wednesday, October 26, 2016 10:09 - CONCLUSION: Marked deterioration in the appearance of the chest is significant interstitial edema. Terry Magallon MD FACR Lumbar Puncture Fluoroscopy 10/24/16 0000 Signed Impressions: Service Date/Time: Monday, October 24, 2016 10:21 - CONCLUSION: Uncomplicated fluoroscopically guided lumbar puncture with pressures as above. Niall Nam MD Brain MRI 10/23/16 Signed Impressions: Service Date/Time: Sunday, October 23, 2016 10:02 - CONCLUSION: 1. No acute intracranial abnormality. 2. No acute infarction. 3. Prominent vascular channel adjacent to the left insular cortex. Chung Handley MD Lower Extremity Ultrasound 10/22/16 Signed Impressions: Service Date/Time: Saturday, October 22, 2016 11:46 - CONCLUSION: 1. No DVT. 2. Superficial thrombus in the left lesser saphenous vein. 3. Fluid collection seen around the transplant right kidney. Derrek Lopez MD Foot X-Ray 10/22/16 Signed Impressions: Service Date/Time: Saturday, October 22, 2016 12:28 - CONCLUSION: 1. Loss of cortical definition at the proximal lateral aspect of the 1st proximal phalanx concerning for some possible destruction in this region. There is underlying chronic change at this area. 2. 0.9 cm linear metallic foreign body seen in the proximal plantar lateral aspect of the 1st digit soft tissues. 3. Prominent hypertrophic change at the hind foot and the mid foot. Derrek Lopez MD Renal Ultrasound 10/18/16 Signed Impressions: Service Date/Time: October 20:18 - CONCLUSION: 1. Resistive indices of the transplant kidney have increased slightly in the interim and are now at the upper limits of normal. 2. No acute obstructive uropathy demonstrated. Parenchymal echogenicity within normal limits. Derrek Arriaza MD Liver Ultrasound 10/18/16 0000 Signed Impressions: Service Date/Time: October 20:01 - CONCLUSION: 1. Nonspecific hepatomegaly. 2. 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 3. Atrophied right kidney. Derrek Arriaza MD Physical Exam CONSTITUTIONAL/GENERAL: This is an adequately nourished patient, in no apparent distress. On NC O2 TUBES/LINES/DRAINS: LUE AV fistula with good thrill, no e/o infx SKIN: No jaundice, rashes, or lesions. HEENT: no facial edema no conjunctival injections hemorrages PERRL EOMI NECK: supple CARDIOVASCULAR: Regular rate and rhythm without murmurs, gallops, or rubs. RESPIRATORY/CHEST: Symmetric, unlabored respirations. Clear to auscultation. Breath sounds equal bilaterally. No wheezes, rales, or rhonchi. GASTROINTESTINAL: Abdomen soft, non-tender, nondistended. No hepato-splenomegaly , or palpable masses. No guarding. Bowel sounds present. GENITOURINARY: Without palpable bladder distension. RLQ with slightly tender palpable mass cw transplant MUSCULOSKELETAL: Extremities without clubbing, cyanosis, or edema R foot NEUROLOGICAL: Awake and alert. Motor and sensory grossly within normal limits. Follows commands. Clear speech Moves all extremities. PSYCHIATRIC: No obvious anxiety/depression. no apparent hallucinations or other psychotic thought process. Assessment & Plan Remarks Disseminated cryptococcus neophormans Headache, r/o crypto meninitis: LP not c/w crypto meningitis crypto AG negative CHF exacebrbation, resolved - 2 D echo with 35% EF as of 08/20 Mod to severe on 2 D echo ? L hallux paronichim, sp naiol removal, clx withFuzarium - cw onychomycosis Fluid collection seen around the transplant right kidney. - stable, lan Dias + Emesis + persistent neck ache + Elevated opening pressure cont fluconazole, max dose - chk LFTs cont augmentin - for MSSA mild DFI, sinusitis x 2 weeks fu ccna for severe - consult neurologist Nancy Maurer Dr, MD Oct 27, 2016 18:32
--- NOTE | 2016-10-27 19:41 | HHI.PR ---
Subjective Remarks Seen this afternoon around 4 PM. Says he is feeling much better than yesterday. Reports continued headache radiating from posterior neck. Denies any chest pain or shortness of breath. Positive bowel movement. Objective Vital Signs Date Time Temp Pulse Resp B/P Pulse Ox O2 Delivery O2 Flow Rate FiO2 10/27/16 18:15 Nasal Cannula 3.00 10/27/16 17:18 94 Nasal Cannula 5.00 10/27/16 16:00 97.4 63 18 140/65 94 10/27/16 12:00 97.8 66 18 135/65 95 10/27/16 10:00 66 10/27/16 09:10 22 10/27/16 08:00 66 10/27/16 08:00 98.6 66 33 135/63 97 10/27/16 07:00 93 Nasal Cannula 5.00 10/27/16 06:00 62 10/27/16 04:46 94 Nasal Cannula 6.00 10/27/16 04:29 Nasal Cannula 4.00 10/27/16 04:00 59 10/27/16 04:00 99.1 60 18 120/60 96 10/27/16 02:00 99 Partial Non-Rebreather 6.00 10/27/16 02:00 58 10/27/16 00:00 99.6 60 27 143/66 100 10/27/16 00:00 60 10/27/16 00:00 100 Partial Non-Rebreather 8.00 10/26/16 22:00 58 10/26/16 20:00 97.8 66 20 150/72 97 10/26/16 20:00 97 Partial Rebreather 10.00 10/26/16 20:00 66 I/O 10/26/16 10/26/16 10/26/16 10/27/16 10/27/16 10/27/16 07:00 15:00 23:00 07:00 15:00 23:00 Intake Total 1160 ml 180 ml 435 ml 133 ml 1220 ml Output Total 820 ml 1700 ml 3225 ml 2000 ml 1225 ml Balance 340 ml -1520 ml -2790 ml -1867 ml -5 ml Intake Oral 1160 ml 180 ml 240 ml 100 ml 1200 ml IV Total 195 ml 33 ml 20 ml Output Urine Total 820 ml 1700 ml 3225 ml 2000 ml 1225 ml # Bowel Movements 0 0 0 2 Result Diagram: 10/27/16 0359 10/27/16 0359 Objective Remarks GENERAL: Patient lying in bed. Appears uncomfortable. He is alert and oriented 3. SKIN: Warm and dry. HEAD: Normocephalic. EYES: No scleral icterus. No injection or drainage. NECK: Supple, trachea midline. No JVD. CARDIOVASCULAR: Regular rate and rhythm without murmurs, gallops, or rubs. RESPIRATORY: Breath sounds equal bilaterally. No accessory muscle use. GASTROINTESTINAL: Abdomen soft, non-tender, nondistended. MUSCULOSKELETAL: No cyanosis, or edema. BACK: Nontender without obvious deformity. No CVA tenderness. A/P Assessment and Plan 10/27/16=== //Post LP headache. Neurology consulted. //CHF Maintain euvolemia. Decrease Lasix. Added fluid restrictions. Sodium restriction //Hyperkalemia. Potassium 5.9 despite aggressive diuresis. Kayexalate ordered. Nephrology following. //Acuteute hypoxic respiratory failure -Secondary to fluid overload. Resolved. Maintain euvolemic. //Fungemia -s/p Micafungi and on IV Diflucan. -Positive wound cultures from toenail. -Infectious disease is following and managing. -Per infectious disease LILIYA will be based on final cultures. also if + for crypto needs LP. s/p LP earlier today -MRI showed prominent vascular channel adjacent to the left insular cortex. -So far current repeat blood cultures are negative. and spinal fluid cx neg x 24 hrs //Hyponatremia -patient given dose of Samsca. -Improved. //L hallux paronychia, -failed outpatient therapy. podiatry following and evaluated pt, No need to do anything with the foreign body. All foot problems have resolved. -s/p total nail avulsion on 10/18/2016. //Status post renal transplant -management per nephrology, Dr. Dias ff. -on home meds -renal ultrasound showed no obstruction. -Being managed by warehouse shipping clerk. Continues to improve. //Acute on Chronic kidney disease -Status post transplant. -Transition Nurse is following. -on lasix. //Type 2 diabetes insulin-dependent -home dosage is NovoLog sliding scale and Lantus 18 units at night. -on Levemir 10 units twice a day. Continue with insulin sliding scale. -Continue with hypoglycemic protocol. //Hyperkalemia -s/p Kayexalate. -Mildly elevated. Being managed by warehouse shipping clerk. //Sinusitis -Patient is on Augmentin. Claritin and nasal saline spray. //History of congestive heart failure -2 D echo with 35% EF as of 08/20 -BNP and elevated. -Mild trace edema in a clinical area. -Echo done on 10/20/2016 showed ejection fraction 35% and aortic stenosis. -Assistant Corporation Counsel consulted and since LILIYA will not be done stated follow-up when necessary. -Lasix per warehouse shipping clerk. -Chest post fluid overload and respiratory failure 10/26. Resolved with diuresis. -Maintain euvolemic. //Lower extremity foot/calf pain -This seems to be due to more osteoarthritis. Questionable gout. Uric acid mildly elevated. --US Doppler showed superficial thrombosis. no DVT -xray showed possible foreign body and 1st proximal phalange destruction and chronic changes. -per Dr. Matos No need to do anything with the foreign body. All foot problems have resolved. //Superficial thrombosis -TEDS placed yesterday. encourage ambulation. unable to take NSAIDS due to renal disease. -improved with treatment. //Aortic stenosis -moderate to severe -Follow up with his wind turbine erector as outpatient. //DVT prophylaxis heparin resumed //GI prophylaxis on pantoprazole. Barry Downing MD Oct 27, 2016 19:41
[2016-10-27] MEDS ORDERED: SODIUM POLYSTYRENE SULFONATE SUSP 15 GM/60 ML CUP PO ONE (19:45)
[2016-10-27] MEDS: NIFEdipine 60 MG SUSTAINED RELEASE TAB PO SCH (21:38)
[2016-10-27] MEDS: LORazepam 1 MG TAB PO SCH (21:38)
[2016-10-27] MEDS: ONDANSETRON HCL 4 MG/2 ML VIAL IV PUSH PRN (23:42)
[2016-10-27] MEDS: FUROSEMIDE 20 MG/2 ML VIAL IV PUSH SCH (23:43)
[2016-10-28] VITALS (9 sets, daily range): BP systolic 119–159; BP diastolic 58–71; PULSE 57–82; RESP 16–20; TEMP 97.5–98.7; O2SAT 91–99
[2016-10-28] MEDS: ISOSORBIDE MONONITRATE 30 MG TAB PO SCH (05:39)
[2016-10-28] MEDS: AMOXICILLIN/CLAVULANATE K 500 MG TAB PO SCH ×3 (05:39→20:48)
[2016-10-28] MEDS: TACROLIMUS 1 MG CAP PO SCH ×2 (05:39→16:03)
[2016-10-28] MEDS: HEPARIN SODIUM - SQ 10,000 UNITS/ML VIAL SQ SCH ×3 (05:39→20:48)
[2016-10-28] MEDS: ACETAMINOPHEN/HYDROcodone 325 MG/10 MG TAB PO PRN ×2 (05:40→20:47)
[2016-10-28] MEDS: INSULIN ASPART SUPPLEMENTAL SCALE SQ SCH ×4 (05:40→20:55)
[2016-10-28] MEDS: SODIUM CHLORIDE 0.9% FLUSH 10 ML FLUSH IV FLUSH SCH ×2 (08:21→20:49)
[2016-10-28] MEDS: DOCUSATE SODIUM 100 MG CAP PO SCH ×2 (08:23→20:48)
[2016-10-28] MEDS: LABETALOL HCL 200 MG TAB PO SCH ×2 (08:23→20:49)
[2016-10-28] MEDS: FUROSEMIDE 20 MG/2 ML VIAL IV PUSH SCH ×2 (08:23→15:57)
[2016-10-28] MEDS: SODIUM BICARBONATE 650 MG TAB PO SCH (08:23)
[2016-10-28] MEDS: predniSONE 5 MG TAB PO SCH (08:23)
[2016-10-28] MEDS: PREGABALIN 25 MG CAP PO SCH ×3 (08:23→16:03)
[2016-10-28] MEDS: MORPHINE SULFATE 4 MG/ML INJ IV PUSH PRN ×3 (08:24→18:10)
[2016-10-28] MEDS: INSULIN DETEMIR 100 UNITS/ML VIAL SQ SCH ×2 (08:31→20:54)
[2016-10-28 08:59] LABS: HEMATOCRIT 37.7 % (39.0-51.0); MEAN CELL VOLUME 83.7 FL (80.0-100.0); MEAN CORPUSCULAR HGB CONC 32.3 % (32.0-36.0); PLATELET COUNT 339 TH/MM3 (150-450); RED BLOOD COUNT 4.51 MIL/MM3 (4.50-5.90); RED CELL DISTRIBUTION WIDTH 15.1 % (11.6-17.2); REVIEW FLAG FINAL; WHITE BLOOD COUNT 7.6 TH/MM3 (4.0-11.0)
[2016-10-28 09:42] LABS: BICARBONATE 26.5 MEQ/L (21.0-32.0); INDIRECT BILIRUBIN 0.5 MG/DL (0.0-0.8); POTASSIUM 5.4 MEQ/L (3.5-5.1); TOTAL BILIRUBIN ADULT 0.8 MG/DL (0.2-1.0)
--- NOTE | 2016-10-28 10:18 | PD.CONS ---
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 Subsequently he developed headaches and on 10/24 a lumbar puncture was done to evaluate for disseminated crypto. That was negative thus far. He is followed by ID. After the lumbar puncture, he developed a positional headache, neck pain relieved with lying flat. he has been slowly feeling better over the past few days. denies any focal weakness, no sensory loss, no vision loss. has been able to sit and eat. Review of Systems ROS Limitations: as above and admit hp Past Family Social History Allergies: Coded Allergies: No Known Allergies (Unverified , 10/12/16) Past Medical History Hypertension Diabetes Atrial fibrillation Peripheral arterial disease Carotid artery diseasestatus post bilateral CEA Renal transplant [id number] COPD CHF Hyperlipidemia Anxiety Hepatitis C Neuropathy Arthritis Past Surgical History Renal transplant on the [id number] Left foot abscess resectionApril 2016 Bilateral CEA Ureteral stents placement Right knee arthroscopy Left AV fistula placement Reported Medications A complete home medication list is unobtainable due to the patient's clinical condition. This was reviewed in the chart. Active Ordered Medications See MAR Family History brother and sister- hypoglycemic, dm Social History quit smoking 14yrs ago no etoh or drugs lives with , drives occasionally Review of Systems All other ROS: ROS reviewed as documented in chart Past Family Social History Allergies: Coded Allergies: No Known Allergies (Unverified , 10/12/16) Active Ordered Medications Current Medications Medications (Trade) Dose Ordered Sig/Rai Route Start Time Stop Time Status Last Admin (NS Flush) 2 ml UNSCH PRN IV FLUSH 10/16/16 19:30 (NS Flush) 2 ml BID IV FLUSH 10/16/16 21:00 10/28/16 08:21 (Narcan Inj) 0.4 mg UNSCH PRN IV 10/16/16 19:30 (Catapres) 0.1 mg DAILY PO 10/17/16 09:00 10/27/16 09:15 (Colace) 100 mg BID PO 10/17/16 09:00 10/28/16 08:23 (Imdur) 30 mg DAILY@07 PO 10/17/16 07:00 10/28/16 05:39 (Trandate) 200 mg BID PO 10/17/16 09:00 10/28/16 08:23 (Ativan) 3 mg HS PO 10/17/16 21:00 10/27/16 21:38 (Deltasone) 5 mg DAILY PO 10/17/16 09:00 10/28/16 08:23 (Lyrica) 25 mg TID PO 10/17/16 09:00 10/28/16 08:23 (Sodium Bicarbonate) 650 mg BIDPC PO 10/17/16 09:00 10/28/16 08:23 (D50w (Vial) Inj) 50 ml UNSCH PRN IV 10/17/16 02:30 (Glucagon Inj) 1 mg UNSCH PRN OTHER 10/17/16 02:30 (Heparin Inj) 5,000 units Q8HR SQ 10/17/16 14:00 10/28/16 05:39 (Chloraseptic Burr) 2 spray Q2H PRN OROPHARYNG 10/18/16 19:00 10/18/16 22:19 (Archbold Marco Burr) 2 spray UNSCH PRN NASAL 10/18/16 19:41 (Claritin) 5 mg DAILY PO 10/20/16 12:00 10/27/16 09:15 (Pill Splitter) 1 ea UNSCH PRN OTHER 10/20/16 11:15 (Augmentin) 500 mg Q8HR PO 10/20/16 14:00 10/28/16 05:39 (Prograf) 3 mg BID@06,18 PO 10/20/16 18:00 Hold 10/23/16 05:11 (Levemir Inj) 10 units Q12HR SQ 10/22/16 21:00 10/28/16 08:31 Acetaminophen/ Hydrocodone Bitart 1 tab 1 tab Q4H PRN PO 10/22/16 11:15 10/25/16 05:56 (Diflucan 400 Mg Premix Bag) 200 ml @ 100 mls/hr Q24H IV 10/23/16 17:00 10/27/16 15:56 (Flynn 10-325 Mg) 1 tab Q4H PRN PO 10/25/16 07:45 10/28/16 05:40 (Procardia Xl) 60 mg HS PO 10/25/16 21:00 10/27/16 21:38 (Prograf) 1 mg BID@06,18 PO 10/25/16 18:00 10/28/16 05:39 (Morphine Inj) 1 mg Q3HR PRN IV PUSH 10/25/16 13:00 10/28/16 08:24 (Lasix Inj) 20 mg Q8H IV PUSH 10/28/16 00:00 10/28/16 08:23 (Zofran Inj) 4 mg Q6HR PRN IV PUSH 10/27/16 19:45 10/27/16 23:42 Exam I&O / VS 10/27/16 10/27/16 10/28/16 15:00 23:00 07:00 Intake Total 1220 ml 24 ml Output Total 1225 ml 2125 ml 875 ml Balance -5 ml -2125 ml -851 ml Intake Oral 1200 ml IV Total 20 ml 24 ml Output Urine Total 1225 ml 2125 ml 875 ml # Bowel Movements 2 0 0 Vital Signs Date Time Temp Pulse Resp B/P Pulse Ox O2 Delivery O2 Flow Rate FiO2 10/28/16 08:10 Nasal Cannula 3.00 10/28/16 08:10 63 10/28/16 08:00 98.1 61 18 124/58 99 10/28/16 05:30 97.5 57 16 131/60 94 10/28/16 04:00 Nasal Cannula 3.00 10/28/16 00:00 Nasal Cannula 3.00 10/28/16 00:00 97.6 71 20 119/60 96 10/27/16 23:10 18 10/27/16 21:40 Nasal Cannula 3.00 10/27/16 20:09 64 10/27/16 20:00 98.1 74 20 142/68 97 10/27/16 18:15 Nasal Cannula 3.00 10/27/16 17:18 94 Nasal Cannula 5.00 10/27/16 16:00 97.4 63 18 140/65 94 10/27/16 12:00 97.8 66 18 135/65 95 General: Alert and Oriented, No acute distress Eye: EOMI Respiratory: Non-labored respirations Musculoskeletal: ROM, Tenderness, Swelling, Deformity, Other Neurologic: Alert, Oriented, Normal sensory, Normal motor, No focal defects, CN II-XII intact, Normal DTR's Psychiatric: Cooperative, Appropriate mood & affect, Normal judgement, Non- suicidal Exam Comments ox 3, was sitting up eating breakfast when i came in to see. he then layed down for the interview as he felt better in that ;position. no aphasia. eomi, vff, ou 3-2mm, face sym, neck supple, matias to gravity, mild le atrophy, no clonus, planter flexor Review/Management Diagnosis/Plan: (1) Positional headache Plan: sounds like a post-lp stark csf pressure slightly elevated- could be from fluid shifts related to renal dz ?no glucose/protein on CSF done recs pt interested in blood patch- fioricet prn fluids/bedrest as much as possible he is not interested in any more mri's and states this type of headache occurred after he had the lp will follow with you (2) Anemia of chronic kidney failure (3) CHF (congestive heart failure) (4) Hypertension Problem Qualifiers (1) Anemia of chronic kidney failure: Qualified Code: N18.9 - Anemia of chronic kidney failure, unspecified stage (2) CHF (congestive heart failure): Qualified Code: I50.32 - Chronic diastolic congestive heart failure (3) Hypertension: Qualified Code: I10 - Essential hypertension Randy Lozano MD Oct 28, 2016 10:18
[2016-10-28] MEDS: ACETAMIN 325 MG/BUTALBITAL 50 MG/CAFFEINE 40 MG TAB PO PRN ×2 (12:53→14:40)
[2016-10-28] MEDS: ONDANSETRON HCL 4 MG/2 ML VIAL IV PUSH PRN (12:53)
--- NOTE | 2016-10-28 13:13 | HHI.NPPN ---
Subjective History of Present Illness 66 year old with kidney transplant, HTN.DM not feeling well, has Left foot infection Additional Remarks had nausea and vomiting x 1 after exercise, c/o neck pain Review of Systems General Constitutional: Fatigue Objective Data Data 10/27/16 10/28/16 19:00 07:00 Intake Total 1220 ml 24 ml Output Total 1225 ml 3000 ml Balance -5 ml -2976 ml Intake Oral 1200 ml IV Total 20 ml 24 ml Output Urine Total 1225 ml 3000 ml # Bowel Movements 2 0 Vital Signs Date Time Temp Pulse Resp B/P Pulse Ox O2 Delivery O2 Flow Rate FiO2 10/28/16 12:00 97.7 82 18 128/61 91 10/28/16 08:10 Nasal Cannula 3.00 10/28/16 08:10 63 10/28/16 08:00 98.1 61 18 124/58 99 10/28/16 05:30 97.5 57 16 131/60 94 10/28/16 04:00 Nasal Cannula 3.00 10/28/16 00:00 Nasal Cannula 3.00 10/28/16 00:00 97.6 71 20 119/60 96 10/27/16 23:10 18 10/27/16 21:40 Nasal Cannula 3.00 10/27/16 20:09 64 10/27/16 20:00 98.1 74 20 142/68 97 10/27/16 18:15 Nasal Cannula 3.00 10/27/16 17:18 94 Nasal Cannula 5.00 10/27/16 16:00 97.4 63 18 140/65 94 -: 10/28/16 0806 10/28/16 0806 Physical Exam General Appearance: Well Developed, Well Nourished Neck Neck Exam: Neck Supple Pulmonary Resp Exam: Clear Bilaterally, Breath Sounds Equal Cardiology CV Exam: Regular, Normal Sinus Rhythm Gastrointestinal/Abdomen GI Exam: Soft, Non-Tender, Bowel Sounds Present Extremeties Extremities Exam: Moderate Edema Neurologic Neuro Exam: Alert Assessment/Plan Problem List: (1) Kidney transplant status, cadaveric Plan: Renal function is better. Cr 2.8 k 5.4 Lasix 20 mg q 12 as having FRANTZ with diuretics On Prednisone 5 mg daily. hold off CellCept UOP 4.2 L AI fu cardiology Tacrolimus 1 mg q 12 follow Tacrolimus stable 8.1 BC from 10/13 growing Cryptococcus LP done complication neck pain Radiology aware need a patch on Diflucan CSF negative for Cryptococcus (2) DM (diabetes mellitus) Plan: Continue monitor blood glucose (3) Hypertension Plan: BP is stable. Cardiology note reviewed. Low EF is noted. (4) Sepsis Plan: ID following. Diflucan. Monitor Prograf level. Problem Qualifiers (1) DM (diabetes mellitus): Qualified Code: E11.42 - Type 2 diabetes mellitus with diabetic polyneuropathy , without long-term current use of insulin (2) Hypertension: Qualified Code: I10 - Essential hypertension Stacy Dias MD Oct 28, 2016 13:13
[2016-10-28] MEDS ORDERED: SODIUM CHLOR 0.9% 250 ML INJ 250 ML IV ONE (14:45)
[2016-10-28] MEDS: FLUCONAZOLE/NACL 400 MG/200 ML IV SCH (15:57)
[2016-10-28] MEDS: LORazepam 1 MG TAB PO SCH (20:47)
[2016-10-28] MEDS: NIFEdipine 90 MG SUSTAINED RELEASE TAB PO SCH (20:47)
--- NOTE | 2016-10-28 22:08 | HHI.PR ---
Subjective Remarks Patient seen today around noon. He reports a headache continues. Headache worse when standing. Denies any chest pain. Objective Vital Signs Date Time Temp Pulse Resp B/P Pulse Ox O2 Delivery O2 Flow Rate FiO2 10/28/16 20:00 98.7 58 18 159/71 98 10/28/16 17:21 96 Nasal Cannula 3.00 10/28/16 16:00 97.8 58 18 145/65 96 10/28/16 12:00 97.7 82 18 128/61 91 10/28/16 08:10 Nasal Cannula 3.00 10/28/16 08:10 63 10/28/16 08:00 98.1 61 18 124/58 99 10/28/16 05:30 97.5 57 16 131/60 94 10/28/16 04:00 Nasal Cannula 3.00 10/28/16 00:00 Nasal Cannula 3.00 10/28/16 00:00 97.6 71 20 119/60 96 10/27/16 23:10 18 I/O 10/27/16 10/27/16 10/27/16 10/28/16 10/28/16 10/28/16 07:00 15:00 23:00 07:00 15:00 23:00 Intake Total 133 ml 1220 ml 24 ml 720 ml Output Total 2000 ml 1225 ml 2125 ml 875 ml 950 ml Balance -1867 ml -5 ml -2125 ml -851 ml -230 ml Intake Oral 100 ml 1200 ml 720 ml IV Total 33 ml 20 ml 24 ml Output Urine Total 2000 ml 1225 ml 2125 ml 875 ml 950 ml # Bowel Movements 0 2 0 0 0 Result Diagram: 10/28/16 0806 10/28/16 0806 Objective Remarks GENERAL: Patient lying in bed. Appears uncomfortable. He is alert and oriented 3.exam unchanged from yesterday SKIN: Warm and dry. HEAD: Normocephalic. EYES: No scleral icterus. No injection or drainage. NECK: Supple, trachea midline. No JVD. CARDIOVASCULAR: Regular rate and rhythm without murmurs, gallops, or rubs. RESPIRATORY: Breath sounds equal bilaterally. No accessory muscle use. GASTROINTESTINAL: Abdomen soft, non-tender, nondistended. MUSCULOSKELETAL: No cyanosis, or edema. BACK: Nontender without obvious deformity. No CVA tenderness. A/P Assessment and Plan 10/28/16=== //Post LP headache. Neurology consulted. //Decreased renal function. Creatinine 2.8 from 2.3 yesterday. Liberalize fluid restrictions. --Optimized blood pressure meds for aortic stenosis. Increased nifedipine. //Post LP headache. Neurology following. Appreciate assistance. //CHF Maintain euvolemia. Decrease Lasix. Added fluid restrictions. Sodium restriction //Hyperkalemia. 5.4. Improved after Kayexalate. Monitor. //Acuteute hypoxic respiratory failure -Secondary to fluid overload. Resolved. Maintain euvolemic. //Fungemia -s/p Micafungi and on IV Diflucan. -Positive wound cultures from toenail. -Infectious disease is following and managing. -Per infectious disease LILIYA will be based on final cultures. also if + for crypto needs LP. s/p LP earlier today -MRI showed prominent vascular channel adjacent to the left insular cortex. -So far current repeat blood cultures are negative. and spinal fluid cx neg x 24 hrs //Hyponatremia -patient given dose of Samsca. -Improved. //L hallux paronychia, -failed outpatient therapy. podiatry following and evaluated pt, No need to do anything with the foreign body. All foot problems have resolved. -s/p total nail avulsion on 10/18/2016. //Status post renal transplant -management per nephrology, Dr. Dias ff. -on home meds -renal ultrasound showed no obstruction. -Being managed by corrugator supervisor. Continues to improve. //Acute on Chronic kidney disease -Status post transplant. -Field Horticultural Specialty Grower is following. -on lasix. //Type 2 diabetes insulin-dependent -home dosage is NovoLog sliding scale and Lantus 18 units at night. -on Levemir 10 units twice a day. Continue with insulin sliding scale. -Continue with hypoglycemic protocol. //Hyperkalemia -s/p Kayexalate. -Mildly elevated. Being managed by corrugator supervisor. //Sinusitis -Patient is on Augmentin. Claritin and nasal saline spray. //History of congestive heart failure -2 D echo with 35% EF as of 08/20 -BNP and elevated. -Mild trace edema in a clinical area. -Echo done on 10/20/2016 showed ejection fraction 35% and aortic stenosis. -Para Machine Operator consulted and since LILIYA will not be done stated follow-up when necessary. -Lasix per corrugator supervisor. -Chest post fluid overload and respiratory failure 10/26. Resolved with diuresis. -Maintain euvolemic. //Lower extremity foot/calf pain -This seems to be due to more osteoarthritis. Questionable gout. Uric acid mildly elevated. --US Doppler showed superficial thrombosis. no DVT -xray showed possible foreign body and 1st proximal phalange destruction and chronic changes. -per Dr. Matos No need to do anything with the foreign body. All foot problems have resolved. //Superficial thrombosis -TEDS placed yesterday. encourage ambulation. unable to take NSAIDS due to renal disease. -improved with treatment. //Aortic stenosis -moderate to severe -Follow up with his hand sewer as outpatient. //DVT prophylaxis heparin resumed //GI prophylaxis on pantoprazole. Barry Downing MD Oct 28, 2016 22:08
[2016-10-29] VITALS (10 sets, daily range): BP systolic 128–167; BP diastolic 60–77; PULSE 59–75; RESP 16–20; TEMP 97.8–98.2; O2SAT 90–98
[2016-10-29] MEDS: MORPHINE SULFATE 4 MG/ML INJ IV PUSH PRN ×3 (00:08→14:51)
[2016-10-29] MEDS: INSULIN ASPART SUPPLEMENTAL SCALE SQ SCH ×4 (05:41→21:00)
[2016-10-29] MEDS: TACROLIMUS 1 MG CAP PO SCH ×2 (05:44→18:03)
[2016-10-29] MEDS: ISOSORBIDE MONONITRATE 30 MG TAB PO SCH (05:44)
[2016-10-29] MEDS: AMOXICILLIN/CLAVULANATE K 500 MG TAB PO SCH ×3 (05:44→22:30)
[2016-10-29] MEDS: ACETAMINOPHEN/HYDROcodone 325 MG/10 MG TAB PO PRN ×3 (05:45→22:32)
[2016-10-29] MEDS: HEPARIN SODIUM - SQ 10,000 UNITS/ML VIAL SQ SCH ×2 (05:46→14:00)
[2016-10-29 08:24] LABS: HEMATOCRIT 38.3 % (39.0-51.0); MEAN CELL VOLUME 83.4 FL (80.0-100.0); MEAN CORPUSCULAR HEMOGLOBIN 27.2 PG (27.0-34.0); MEAN CORPUSCULAR HGB CONC 32.6 % (32.0-36.0); PLATELET COUNT 353 TH/MM3 (150-450); RED BLOOD COUNT 4.59 MIL/MM3 (4.50-5.90); RED CELL DISTRIBUTION WIDTH 15.1 % (11.6-17.2); REVIEW FLAG FINAL; WHITE BLOOD COUNT 7.5 TH/MM3 (4.0-11.0)
--- NOTE | 2016-10-29 08:32 | HHI.PR ---
Review/Management Diagnosis/Plan: (1) Positional headache Plan: sounds like a post-lp stark csf pressure slightly elevated- could be from fluid shifts related to renal dz ?no glucose/protein on CSF done; addd on- slightly elevated protein, could be from neuropathy recs blood patch- fioricet prn fluids/bedrest as much as possible will follow with you (2) Anemia of chronic kidney failure (3) CHF (congestive heart failure) (4) Hypertension Subjective Subjective Comments No acute events reported still with positional stark; limited relief with fioricet No chest pain No dyspnea Active Medications Current Medications Medications (Trade) Dose Ordered Sig/Rai Route Start Time Stop Time Status Last Admin (NS Flush) 2 ml UNSCH PRN IV FLUSH 10/16/16 19:30 (NS Flush) 2 ml BID IV FLUSH 10/16/16 21:00 10/28/16 20:49 (Narcan Inj) 0.4 mg UNSCH PRN IV 10/16/16 19:30 (Catapres) 0.1 mg DAILY PO 10/17/16 09:00 10/27/16 09:15 (Colace) 100 mg BID PO 10/17/16 09:00 10/28/16 20:48 (Imdur) 30 mg DAILY@07 PO 10/17/16 07:00 10/29/16 05:44 (Trandate) 200 mg BID PO 10/17/16 09:00 10/28/16 20:49 (Ativan) 3 mg HS PO 10/17/16 21:00 10/28/16 20:47 (Deltasone) 5 mg DAILY PO 10/17/16 09:00 10/28/16 08:23 (Lyrica) 25 mg TID PO 10/17/16 09:00 10/28/16 16:03 (D50w (Vial) Inj) 50 ml UNSCH PRN IV 10/17/16 02:30 (Glucagon Inj) 1 mg UNSCH PRN OTHER 10/17/16 02:30 (Heparin Inj) 5,000 units Q8HR SQ 10/17/16 14:00 10/29/16 05:46 (Chloraseptic Marshall) 2 spray Q2H PRN OROPHARYNG 10/18/16 19:00 10/18/16 22:19 (Vansant Marco Marshall) 2 spray UNSCH PRN NASAL 10/18/16 19:41 (Claritin) 5 mg DAILY PO 10/20/16 12:00 10/27/16 09:15 (Pill Splitter) 1 ea UNSCH PRN OTHER 10/20/16 11:15 (Augmentin) 500 mg Q8HR PO 10/20/16 14:00 10/29/16 05:44 (Prograf) 3 mg BID@,18 PO 10/20/16 18:00 Hold 10/23/16 05:11 (Levemir Inj) 10 units Q12HR SQ 10/22/16 21:00 10/28/16 20:54 Acetaminophen/ Hydrocodone Bitart 1 tab 1 tab Q4H PRN PO 10/22/16 11:15 10/25/16 05:56 (Diflucan 400 Mg Premix Bag) 200 ml @ 100 mls/hr Q24H IV 10/23/16 17:00 10/28/16 15:57 (Oxford 10-325 Mg) 1 tab Q4H PRN PO 10/25/16 07:45 10/29/16 05:45 (Prograf) 1 mg BID@ PO 10/25/16 18:00 10/29/16 05:44 (Morphine Inj) 1 mg Q3HR PRN IV PUSH 10/25/16 13:00 10/29/16 00:08 (Zofran Inj) 4 mg Q6HR PRN IV PUSH 10/27/16 19:45 10/28/16 12:53 (Fioricet 325-50-40) 1 tab Q8H PRN PO 10/28/16 11:00 10/28/16 14:40 (Lasix Inj) 20 mg BID@18 IV PUSH 10/29/16 09:00 (Procardia Xl) 90 mg HS PO 10/28/16 21:00 10/28/16 20:47 (Sodium Bicarbonate) 650 mg DAILY PO 10/29/16 09:00 Allergies Allergies Coded Allergies No Known Allergies (Unverified10/12/16) Review of Systems All other ROS: ROS reviewed as documented in chart Exam I&O / VS 10/28/16 10/28/16 10/29/16 15:00 23:00 07:00 Intake Total 720 ml 240 ml 8 ml Output Total 950 ml 810 ml 450 ml Balance -230 ml -570 ml -442 ml Intake Oral 720 ml 240 ml IV Total 8 ml Output Urine Total 950 ml 810 ml 450 ml # Bowel Movements 0 Vital Signs Date Time Temp Pulse Resp B/P Pulse Ox O2 Delivery O2 Flow Rate FiO2 10/29/16 06:45 20 10/29/16 04:00 98.1 59 18 154/73 98 10/29/16 01:11 18 10/29/16 01:00 156/64 10/29/16 00:00 97.8 66 18 167/77 97 10/29/16 00:00 98 Nasal Cannula 3.00 10/28/16 20:55 Nasal Cannula 3.00 10/28/16 20:11 59 10/28/16 20:00 98.7 58 18 159/71 98 10/28/16 17:21 96 Nasal Cannula 3.00 10/28/16 16:00 97.8 58 18 145/65 96 10/28/16 12:00 97.7 82 18 128/61 91 General: Alert and Oriented, No acute distress Eye: EOMI Respiratory: Non-labored respirations Musculoskeletal: ROM, Tenderness, Swelling, Deformity, Other Neurologic: Alert, Oriented, Normal motor, No focal defects, CN II-XII intact, Normal DTR's Psychiatric: Cooperative, Appropriate mood & affect, Normal judgement, Non- suicidal Exam Comments ox 3, lying flat in bed, pleasant, follows, no aphasia. eomi, vff, ou 3-2mm, face sym, neck supple, matias to gravity, mild le atrophy, no clonus, planter flexor Objective Micro and Labs Laboratory Tests Test 10/29/16 06:59 White Blood Count 7.5 Red Blood Count 4.59 Hemoglobin 12.5 Hematocrit 38.3 Mean Corpuscular Volume 83.4 Mean Corpuscular Hemoglobin 27.2 Mean Corpuscular Hemoglobin 32.6 Concent Red Cell Distribution Width 15.1 Platelet Count 353 Mean Platelet Volume 8.0 Date/Time Procedure Status Source Growth 10/26/16 10:53 Aerobic Blood Culture - Preliminary Resulted Blood Peripheral NO GROWTH IN 2 DAYS 10/26/16 10:53 Anaerobic Blood Culture - Preliminary Resulted Blood Peripheral NO GROWTH IN 2 DAYS 10/24/16 10:26 Gram Stain - Final Complete Cerebral Spinal Fluid Lumbar Puncture 10/24/16 10:26 CSF Culture - Final Complete Cerebral Spinal Fluid Lumbar Puncture NO GROWTH IN 72 HOURS 10/24/16 10:26 Fungal Smear - Final Resulted Cerebral Spinal Fluid Lumbar Puncture NO FUNGAL ELEMENTS SEEN. 10/24/16 10:26 Fungal Culture Resulted Cerebral Spinal Fluid Lumbar Puncture Pending Problem Qualifiers (1) Anemia of chronic kidney failure: Qualified Code: N18.9 - Anemia of chronic kidney failure, unspecified stage (2) CHF (congestive heart failure): Qualified Code: I50.32 - Chronic diastolic congestive heart failure (3) Hypertension: Qualified Code: I10 - Essential hypertension Randy Lozano MD Oct 29, 2016 08:32
[2016-10-29 08:40] LABS: BICARBONATE 27.8 MEQ/L (21.0-32.0); POTASSIUM 4.9 MEQ/L (3.5-5.1)
[2016-10-29] MEDS: INSULIN DETEMIR 100 UNITS/ML VIAL SQ SCH ×2 (09:00→21:00)
[2016-10-29] MEDS: SODIUM BICARBONATE 650 MG TAB PO SCH (09:00)
[2016-10-29] MEDS ORDERED: FUROSEMIDE 20 MG/2 ML VIAL IV PUSH SCH (09:00)
[2016-10-29] MEDS: LABETALOL HCL 200 MG TAB PO SCH ×2 (09:07→22:29)
[2016-10-29] MEDS: PREGABALIN 25 MG CAP PO SCH ×3 (09:08→18:02)
[2016-10-29] MEDS: LORATADINE 10 MG TAB PO SCH (09:08)
[2016-10-29] MEDS: predniSONE 5 MG TAB PO SCH (09:08)
[2016-10-29] MEDS: cloNIDine HCL 0.1 MG TAB PO SCH (09:09)
[2016-10-29] MEDS: DOCUSATE SODIUM 100 MG CAP PO SCH ×2 (09:09→22:30)
[2016-10-29] MEDS: ONDANSETRON HCL 4 MG/2 ML VIAL IV PUSH PRN ×2 (09:26→17:58)
[2016-10-29] MEDS: SODIUM CHLORIDE 0.9% FLUSH 10 ML FLUSH IV FLUSH SCH ×2 (09:27→21:00)
[2016-10-29] MEDS ORDERED: hydrALAZINE HCL 25 MG TAB PO ONE (14:15)
--- NOTE | 2016-10-29 14:17 | HHI.NPPN ---
Subjective History of Present Illness 66 year old with kidney transplant, HTN.DM not feeling well, has Left foot infection Additional Remarks had nausea and vomiting x 1 Had hypoglycemia Review of Systems General Constitutional: Fatigue Objective Data Data 10/28/16 10/29/16 19:00 07:00 Intake Total 720 ml 248 ml Output Total 950 ml 1260 ml Balance -230 ml -1012 ml Intake Oral 720 ml 240 ml IV Total 8 ml Output Urine Total 950 ml 1260 ml # Bowel Movements 0 Vital Signs Date Time Temp Pulse Resp B/P Pulse Ox O2 Delivery O2 Flow Rate FiO2 10/29/16 12:44 94 Nasal Cannula 2.00 10/29/16 10:31 70 10/29/16 06:45 20 10/29/16 04:00 98.1 59 18 154/73 98 10/29/16 01:11 18 10/29/16 01:00 156/64 10/29/16 00:00 97.8 66 18 167/77 97 10/29/16 00:00 98 Nasal Cannula 3.00 10/28/16 20:55 Nasal Cannula 3.00 10/28/16 20:11 59 10/28/16 20:00 98.7 58 18 159/71 98 10/28/16 17:21 96 Nasal Cannula 3.00 10/28/16 16:00 97.8 58 18 145/65 96 -: 10/29/16 0659 10/29/16 0629 Physical Exam General Appearance: Well Developed, Well Nourished Neck Neck Exam: Neck Supple Pulmonary Resp Exam: Clear Bilaterally, Breath Sounds Equal Cardiology CV Exam: Regular, Normal Sinus Rhythm Gastrointestinal/Abdomen GI Exam: Soft, Non-Tender, Bowel Sounds Present Extremeties Extremities Exam: Moderate Edema Neurologic Neuro Exam: Alert Assessment/Plan Problem List: (1) Kidney transplant status, cadaveric Plan: Renal function is better. Cr 2.8 k 4.9 Lasix 20 mg q 12 On Prednisone 5 mg daily. hold off CellCept UOP 2.2 L AI fu cardiology Tacrolimus 1 mg q 12 follow Tacrolimus level 11.1 BC from 10/13 growing Cryptococcus LP done complication neck pain Radiology aware need a patch Neurology agreed on Diflucan CSF negative for Cryptococcus (2) DM (diabetes mellitus) Plan: Continue monitor blood glucose (3) Hypertension Plan: BP is stable. Cardiology note reviewed. Low EF is noted. (4) Sepsis Plan: ID following. Christilucan. Monitor Prograf level. Problem Qualifiers (1) DM (diabetes mellitus): Qualified Code: E11.42 - Type 2 diabetes mellitus with diabetic polyneuropathy , without long-term current use of insulin (2) Hypertension: Qualified Code: I10 - Essential hypertension Stacy Dias MD Oct 29, 2016 14:16
--- NOTE | 2016-10-29 14:25 | HHI.IDPN ---
Subjective Subjective Remarks + nausea, vomiting On NC O2, back on thee floor co persistent neck pain and headache, he has been foolowed by neurologist for it crypto AG negative in CSF crypto AG negative in serum cratinine going up Antibiotics fluconasole augmentin Allergies: Coded Allergies: No Known Allergies (Unverified , 10/12/16) Objective . Vital Signs Date Time Temp Pulse Resp B/P Pulse Ox O2 Delivery O2 Flow Rate FiO2 10/29/16 12:44 94 Nasal Cannula 2.00 10/29/16 10:31 70 10/29/16 06:45 20 10/29/16 04:00 98.1 59 18 154/73 98 10/29/16 01:11 18 10/29/16 01:00 156/64 10/29/16 00:00 97.8 66 18 167/77 97 10/29/16 00:00 98 Nasal Cannula 3.00 10/28/16 20:55 Nasal Cannula 3.00 10/28/16 20:11 59 10/28/16 20:00 98.7 58 18 159/71 98 10/28/16 17:21 96 Nasal Cannula 3.00 10/28/16 16:00 97.8 58 18 145/65 96 10/28/16 10/28/16 10/29/16 15:00 23:00 07:00 Intake Total 720 ml 240 ml 8 ml Output Total 950 ml 810 ml 450 ml Balance -230 ml -570 ml -442 ml Intake Oral 720 ml 240 ml IV Total 8 ml Output Urine Total 950 ml 810 ml 450 ml # Bowel Movements 0 . Laboratory Tests Test 10/28/16 10/29/16 08:06 06:59 White Blood Count 7.6 TH/MM3 7.5 TH/MM3 Red Blood Count 4.51 MIL/MM3 4.59 MIL/MM3 Hemoglobin 12.2 GM/DL 12.5 GM/DL Hematocrit 37.7 % 38.3 % Mean Corpuscular Volume 83.7 FL 83.4 FL Mean Corpuscular Hemoglobin 27.0 PG 27.2 PG Mean Corpuscular Hemoglobin 32.3 % 32.6 % Concent Red Cell Distribution Width 15.1 % 15.1 % Platelet Count 339 TH/MM3 353 TH/MM3 Mean Platelet Volume 8.0 FL 8.0 FL Laboratory Tests Test 10/28/16 10/29/1617 08:06 06:29 06:59 Sodium Level 136 MEQ/L 136 MEQ/L Potassium Level 5.4 MEQ/L 4.9 MEQ/L Chloride Level 100 MEQ/L 100 MEQ/L Carbon Dioxide Level 26.5 MEQ/L 27.8 MEQ/L Anion Gap 10 MEQ/L 8 MEQ/L Blood Urea Nitrogen 52 MG/DL 55 MG/DL Creatinine 2.84 MG/DL 2.87 MG/DL Estimat Glomerular Filtration 22 ML/MIN 22 ML/MIN Rate Random Glucose 147 MG/DL 108 MG/DL Calcium Level 9.9 MG/DL 10.1 MG/DL Total Bilirubin 0.8 MG/DL Direct Bilirubin 0.3 MG/DL Indirect Bilirubin 0.5 MG/DL Aspartate Amino Transf 6 U/L (AST/SGOT) Alanine Aminotransferase 17 U/L (ALT/SGPT) Alkaline Phosphatase 123 U/L B-Type Natriuretic Peptide 1435 PG/ML 1465 PG/ML Total Protein 6.9 GM/DL Albumin 3.0 GM/DL Imaging Last Impressions Chest X-Ray 10/26/16 0000 Signed Impressions: Service Date/Time: Wednesday, October 26, 2016 10:09 - CONCLUSION: Marked deterioration in the appearance of the chest is significant interstitial edema. Terry Magallon MD FACR Lumbar Puncture Fluoroscopy 10/24/16 0000 Signed Impressions: Service Date/Time: Monday, October 24, 2016 10:21 - CONCLUSION: Uncomplicated fluoroscopically guided lumbar puncture with pressures as above. Niall Nam MD Brain MRI 10/23/16 0000 Signed Impressions: Service Date/Time: Sunday, October 23, 2016 10:02 - CONCLUSION: 1. No acute intracranial abnormality. 2. No acute infarction. 3. Prominent vascular channel adjacent to the left insular cortex. Chung Handley MD Lower Extremity Ultrasound 10/22/16 0000 Signed Impressions: Service Date/Time: Saturday, October 22, 2016 11:46 - CONCLUSION: 1. No DVT. 2. Superficial thrombus in the left lesser saphenous vein. 3. Fluid collection seen around the transplant right kidney. Derrek Lopez MD Foot X-Ray 10/22/16 0000 Signed Impressions: Service Date/Time: Saturday, October 22, 2016 12:28 - CONCLUSION: 1. Loss of cortical definition at the proximal lateral aspect of the 1st proximal phalanx concerning for some possible destruction in this region. There is underlying chronic change at this area. 2. 0.9 cm linear metallic foreign body seen in the proximal plantar lateral aspect of the 1st digit soft tissues. 3. Prominent hypertrophic change at the hind foot and the mid foot. Derrek Lopez MD Renal Ultrasound 10/18/16 0000 Signed Impressions: Service Date/Time: October 20:18 - CONCLUSION: 1. Resistive indices of the transplant kidney have increased slightly in the interim and are now at the upper limits of normal. 2. No acute obstructive uropathy demonstrated. Parenchymal echogenicity within normal limits. eDrrek Arriaza MD Liver Ultrasound 10/18/16 0000 Signed Impressions: Service Date/Time: October 20:01 - CONCLUSION: 1. Nonspecific hepatomegaly. 2. 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 3. Atrophied right kidney. Derrek Arriaaz MD Physical Exam CONSTITUTIONAL/GENERAL: This is an adequately nourished patient, in no apparent distress. On NC O2 TUBES/LINES/DRAINS: LUE AV fistula with good thrill, no e/o infx SKIN: No jaundice, rashes, or lesions. HEENT: no facial edema no conjunctival injections hemorrages CARDIOVASCULAR: Regular rate and rhythm without murmurs, gallops, or rubs. RESPIRATORY/CHEST: Symmetric, unlabored respirations. Clear to auscultation. Breath sounds equal bilaterally. No wheezes, rales, or rhonchi. GASTROINTESTINAL: Abdomen soft, non-tender, nondistended. No hepato-splenomegaly , or palpable masses. No guarding. Bowel sounds present. GENITOURINARY: Without palpable bladder distension. MUSCULOSKELETAL: Extremities without clubbing, cyanosis, or edema R foot NEUROLOGICAL: Awake and alert. Motor and sensory grossly within normal limits. Follows commands. Clear speech Moves all extremities. PSYCHIATRIC: No obvious anxiety/depression. no apparent hallucinations or other psychotic thought process. Assessment & Plan Remarks Disseminated cryptococcus neophormans Headache, r/o crypto meninitis: LP not c/w crypto meningitis crypto AG negative CHF exacebrbation, resolved - 2 D echo with 35% EF as of 08/20 Mod to severe on 2 D echo ? L hallux paronichim, sp naiol removal, clx withFuzarium - cw onychomycosis Fluid collection seen around the transplant right kidney. - stable, dw Dr Dias + Emesis; LFT Ok except mild elevation of alk phos + persistent neck ache appreciated neurologist input regarding elevated opening pressure cont fluconazole, max dose - anticipate transition to PO when emesis resolves - chk LFTs stop augmentin chk urine eos; fu freight broker for severe Expect to be on fluconazole suppression after completed treatment courze will need to be folloewd by Dr Oneill after d/c dw Nancy Sales MD Oct 29, 2016 14:25
[2016-10-29 15:49] LABS: APTT (PATIENT) 30.3 SEC (24.3-30.1); INTERNATIONAL NORMALIZED RATIO 1.1 RATIO; PROTHROMBIN TIME - PATIENT 11.7 SEC (9.8-11.6)
[2016-10-29] MEDS: FLUCONAZOLE/NACL 400 MG/200 ML IV SCH (18:00)
[2016-10-29] MEDS: FUROSEMIDE 20 MG TAB PO SCH (18:02)
--- NOTE | 2016-10-29 19:31 | HHI.PR ---
Subjective Remarks Patient seen this afternoon around 2 PM. Reports that headache continues. Denies any chest pain or shortness of breath. Objective Vital Signs Date Time Temp Pulse Resp B/P Pulse Ox O2 Delivery O2 Flow Rate FiO2 10/29/16 16:00 98.1 60 20 131/63 93 10/29/16 16:00 61 128/60 10/29/16 12:44 94 Nasal Cannula 2.00 10/29/16 12:00 Nasal Cannula 2.00 10/29/16 12:00 98.2 69 20 149/67 90 10/29/16 10:31 70 10/29/16 08:00 97.8 75 20 136/64 97 10/29/16 08:00 Nasal Cannula 2.00 10/29/16 06:45 20 10/29/16 04:00 98.1 59 18 154/73 98 10/29/16 01:11 18 10/29/16 01:00 156/64 10/29/16 00:00 97.8 66 18 167/77 97 10/29/16 00:00 98 Nasal Cannula 3.00 10/28/16 20:55 Nasal Cannula 3.00 10/28/16 20:11 59 10/28/16 20:00 98.7 58 18 159/71 98 I/O 10/28/16 10/28/16 10/28/16 10/29/16 10/29/16 10/29/16 07:00 15:00 23:00 07:00 15:00 23:00 Intake Total 24 ml 720 ml 240 ml 8 ml 480 ml Output Total 875 ml 950 ml 810 ml 450 ml 775 ml Balance -851 ml -230 ml -570 ml -442 ml -295 ml Intake Oral 720 ml 240 ml 480 ml IV Total 24 ml 8 ml Output Urine Total 875 ml 950 ml 810 ml 450 ml 775 ml # Bowel Movements 0 0 0 Result Diagram: 10/29/16 0659 10/29/16 0629 Objective Remarks GENERAL: Patient lying in bed. Appears uncomfortable. He is alert and oriented 3.exam again unchanged. SKIN: Warm and dry. HEAD: Normocephalic. EYES: No scleral icterus. No injection or drainage. NECK: Supple, trachea midline. No JVD. CARDIOVASCULAR: Regular rate and rhythm without murmurs, gallops, or rubs. RESPIRATORY: Breath sounds equal bilaterally. No accessory muscle use. GASTROINTESTINAL: Abdomen soft, non-tender, nondistended. MUSCULOSKELETAL: No cyanosis, or edema. BACK: Nontender without obvious deformity. No CVA tenderness. A/P Assessment and Plan 10/29/16=== = Discussed with anesthesia. Patient had heparin subcutaneous this morning. Hold subcutaneous heparin. Will be nothing by mouth at midnight. -Creatinine relatively stable. Decrease Lasix. Strict monitoring of intake and output. //Aortic stenosis. With decreased ejection fraction. Consult cardiology. Add hydralazine //Post LP headache. Neurology following. Blood patch plan for tomorrow. //Decreased renal function. Creatinine 2.8 from 2.3 yesterday. Liberalize fluid restrictions. --Optimized blood pressure meds for aortic stenosis. Increased nifedipine. //Acuteute hypoxic respiratory failure -Secondary to fluid overload. Resolved. Maintain euvolemic. //Fungemia -s/p Micafungi and on IV Diflucan. -Positive wound cultures from toenail. -Infectious disease is following and managing. -Per infectious disease LILIYA will be based on final cultures. also if + for crypto needs LP. s/p LP -MRI showed prominent vascular channel adjacent to the left insular cortex. -So far current repeat blood cultures are negative. and spinal fluid cx neg x 24 hrs //Hyponatremia -patient given dose of Samsca. -Improved. //L hallux paronychia, -failed outpatient therapy. podiatry following and evaluated pt, No need to do anything with the foreign body. All foot problems have resolved. -s/p total nail avulsion on 10/18/2016. //Status post renal transplant -management per nephrology, Dr. Larissa melgar. -on home meds -renal ultrasound showed no obstruction. -Being managed by sewer maintenance supervisor. Continues to improve. //Acute on Chronic kidney disease -Status post transplant. -Dashboard Developer is following. -on lasix. //Type 2 diabetes insulin-dependent -home dosage is NovoLog sliding scale and Lantus 18 units at night. -on Levemir 10 units twice a day. Continue with insulin sliding scale. -Continue with hypoglycemic protocol. //Hyperkalemia -s/p Kayexalate. -Mildly elevated. Being managed by sewer maintenance supervisor. //Sinusitis -Patient is on Augmentin. Claritin and nasal saline spray. //History of congestive heart failure //Aortic stenosis. -2 D echo with 35% EF as of 08/20 -BNP and elevated. -Mild trace edema in a clinical area. -Echo done on 10/20/2016 showed ejection fraction 35% and aortic stenosis. -Fabrication Lead consulted and since LILIYA will not be done stated follow-up when necessary. -Lasix per sewer maintenance supervisor. -Chest post fluid overload and respiratory failure 10/26. Resolved with diuresis. -Maintain euvolemic. -10/29. Change focus from diuresis to afterload reduction. Cardiology consult. //Lower extremity foot/calf pain -This seems to be due to more osteoarthritis. Questionable gout. Uric acid mildly elevated. --US Doppler showed superficial thrombosis. no DVT -xray showed possible foreign body and 1st proximal phalange destruction and chronic changes. -per Dr. Matos No need to do anything with the foreign body. All foot problems have resolved. //Superficial thrombosis -TEDS placed yesterday. encourage ambulation. unable to take NSAIDS due to renal disease. -improved with treatment. //DVT prophylaxis heparin resumed //GI prophylaxis on pantoprazole. Discharge Planning -we'll need clearance from infectious disease. Pending blood patch for post LP headache. Barry Downing MD Oct 29, 2016 19:31
[2016-10-29] MEDS: LORazepam 1 MG TAB PO SCH (22:29)
[2016-10-29] MEDS: NIFEdipine 90 MG SUSTAINED RELEASE TAB PO SCH (22:29)
[2016-10-29] MEDS ORDERED: CALCIUM CARBONATE 500 MG CHEWABLE TAB CHEW ONE (22:30)
[2016-10-29] MEDS: hydrALAZINE HCL 25 MG TAB PO SCH (22:30)
--- NOTE | 2016-10-29 23:31 | PD.CARD.PN ---
Subjective Subjective Remarks Reconsulted for CHF with Aortic Stenosis Patient seen this afternoon, no chest pain, no shortness of breath at this time... does have chronic shortness of breath with exertion Mostly complaining of a headache that comes with changing of his position Objective Medications Current Medications Medications (Trade) Dose Ordered Sig/Rai Route Start Time Stop Time Status Last Admin (NS Flush) 2 ml UNSCH PRN IV FLUSH 10/16/16 19:30 (NS Flush) 2 ml BID IV FLUSH 10/16/16 21:00 10/29/16 21:00 (Narcan Inj) 0.4 mg UNSCH PRN IV 10/16/16 19:30 (Catapres) 0.1 mg DAILY PO 10/17/16 09:00 10/29/16 09:09 (Colace) 100 mg BID PO 10/17/16 09:00 10/29/16 22:30 (Imdur) 30 mg DAILY@07 PO 10/17/16 07:00 10/29/16 05:44 (Trandate) 200 mg BID PO 10/17/16 09:00 10/29/16 22:29 (Ativan) 3 mg HS PO 10/17/16 21:00 10/29/16 22:29 (Deltasone) 5 mg DAILY PO 10/17/16 09:00 10/29/16 09:08 (Lyrica) 25 mg TID PO 10/17/16 09:00 10/29/16 18:02 (D50w (Vial) Inj) 50 ml UNSCH PRN IV 10/17/16 02:30 (Glucagon Inj) 1 mg UNSCH PRN OTHER 10/17/16 02:30 (Heparin Inj) 5,000 units Q8HR SQ 10/17/16 14:00 Hold 10/29/16 05:46 (Chloraseptic [place]) 2 spray Q2H PRN OROPHARYNG 10/18/16 19:00 10/18/16 22:19 ([place]) 2 spray UNSCH PRN NASAL 10/18/16 19:41 (Claritin) 5 mg DAILY PO 10/20/16 12:00 10/29/16 09:08 (Pill Splitter) 1 ea UNSCH PRN OTHER 10/20/16 11:15 (Augmentin) 500 mg Q8HR PO 10/20/16 14:00 10/29/16 22:30 (Prograf) 3 mg BID@ PO 10/20/16 18:00 Hold 10/23/16 05:11 (Levemir Inj) 10 units Q12HR SQ 10/22/16 21:00 10/28/16 20:54 Acetaminophen/ Hydrocodone Bitart 1 tab 1 tab Q4H PRN PO 10/22/16 11:15 10/25/16 05:56 (Diflucan 400 Mg Premix Bag) 200 ml @ 100 mls/hr Q24H IV 10/23/16 17:00 10/29/16 18:00 ([place] 10-325 Mg) 1 tab Q4H PRN PO 10/25/16 07:45 10/29/16 22:32 (Prograf) 1 mg BID@ PO 10/25/16 18:00 10/29/16 18:03 (Morphine Inj) 1 mg Q3HR PRN IV PUSH 10/25/16 13:00 10/29/16 14:51 (Zofran Inj) 4 mg Q6HR PRN IV PUSH 10/27/16 19:45 10/29/16 17:58 (Fioricet 325-50-40) 1 tab Q8H PRN PO 10/28/16 11:00 10/28/16 14:40 (Procardia Xl) 90 mg HS PO 10/28/16 21:00 10/29/16 22:29 (Sodium Bicarbonate) 650 mg DAILY PO 10/29/16 09:00 10/29/16 09:00 (Apresoline) 25 mg Q8HR PO 10/29/16 22:00 10/29/16 22:30 (Lasix) 20 mg BID@18 PO 10/29/16 18:00 10/29/16 18:02 Vital Signs / I&O Vital Signs Date Time Temp Pulse Resp B/P Pulse Ox O2 Delivery O2 Flow Rate FiO2 10/29/16 22:05 98.0 65 16 128/60 95 10/29/16 16:00 98.1 60 20 131/63 93 10/29/16 16:00 61 128/60 10/29/16 12:44 94 Nasal Cannula 2.00 10/29/16 12:00 Nasal Cannula 2.00 10/29/16 12:00 98.2 69 20 149/67 90 10/29/16 10:31 70 10/29/16 08:00 97.8 75 20 136/64 97 10/29/16 08:00 Nasal Cannula 2.00 10/29/16 06:45 20 10/29/16 04:00 98.1 59 18 154/73 98 10/29/16 01:11 18 10/29/16 01:00 156/64 10/29/16 00:00 97.8 66 18 167/77 97 10/29/16 00:00 98 Nasal Cannula 3.00 I/O 10/28/16 10/28/16 10/28/16 10/29/16 10/29/16 10/29/16 07:00 15:00 23:00 07:00 15:00 23:00 Intake Total 24 ml 720 ml 240 ml 8 ml 480 ml Output Total 875 ml 950 ml 810 ml 450 ml 775 ml Balance -851 ml -230 ml -570 ml -442 ml -295 ml Intake Oral 720 ml 240 ml 480 ml IV Total 24 ml 8 ml Output Urine Total 875 ml 950 ml 810 ml 450 ml 775 ml # Bowel Movements 0 0 0 Physical Exam GENERAL: NAD, AAOx3 SKIN: Warm and dry. HEAD: Atraumatic. Normocephalic. EYES: Pupils equal and round. No scleral icterus. No injection or drainage. ENT: No nasal bleeding or discharge. Mucous membranes pink and moist. NECK: Trachea midline. No JVD. CARDIOVASCULAR: Regular rate and rhythm. 2/6 crescendo-decrescendo murmur to the RSB RESPIRATORY: No accessory muscle use. Clear to auscultation. Breath sounds equal bilaterally. GASTROINTESTINAL: Abdomen soft, non-tender, nondistended. Hepatic and splenic margins not palpable. MUSCULOSKELETAL: Extremities without clubbing, cyanosis, or edema. No obvious deformities. NEUROLOGICAL: Awake and alert. No obvious cranial nerve deficits. Motor grossly within normal limits. Five out of 5 muscle strength in the arms and legs. Normal speech. PSYCHIATRIC: Appropriate mood and affect; insight and judgment normal. Laboratory Laboratory Tests Test 10/29/16 10/29/16 10/29/16 06:29 06:59 15:17 Sodium Level 136 MEQ/L Potassium Level 4.9 MEQ/L Chloride Level 100 MEQ/L Carbon Dioxide Level 27.8 MEQ/L Anion Gap 8 MEQ/L Blood Urea Nitrogen 55 MG/DL Creatinine 2.87 MG/DL Estimat Glomerular Filtration 22 ML/MIN Rate Random Glucose 108 MG/DL Calcium Level 10.1 MG/DL White Blood Count 7.5 TH/MM3 Red Blood Count 4.59 MIL/MM3 Hemoglobin 12.5 GM/DL Hematocrit 38.3 % Mean Corpuscular Volume 83.4 FL Mean Corpuscular Hemoglobin 27.2 PG Mean Corpuscular Hemoglobin 32.6 % Concent Red Cell Distribution Width 15.1 % Platelet Count 353 TH/MM3 Mean Platelet Volume 8.0 FL B-Type Natriuretic Peptide 1465 PG/ML Tacrolimus (Prograf) Level 11.1 NG/ML Prothrombin Time 11.7 SEC Prothromb Time International 1.1 RATIO Ratio Activated Partial 30.3 SEC Thromboplast Time Assessment and Plan Problem List: (1) CHF (congestive heart failure) (2) Hypertension (3) Positional headache (4) Shortness of breath (5) Aortic stenosis Assessment and Plan 1) Positional headache most likely from spinal tap 2) Severe noted on echocardiogram with cardiomyopathy with EF 35-40% Needs work up for consideration of valve replacement (AVR, Mini-AVR, TAVR) outpatient, would not do at this time with current illness including possible fungal infection 3) Currently appears euvolemic, able to lay flat without shortness of breath Does get short of breath with exertion which is most likely from / Cardiomyopathy Problem Qualifiers (1) CHF (congestive heart failure): Qualified Code: I50.32 - Chronic diastolic congestive heart failure (2) Hypertension: Qualified Code: I10 - Essential hypertension Dillon Valdez DO Oct 29, 2016 23:31
[2016-10-30] VITALS: BP 146/67; PULSE 63; RESP 17; TEMP 98.7; O2SAT 92
[2016-10-30] MEDS: MORPHINE SULFATE 4 MG/ML INJ IV PUSH PRN (00:08)
[2016-10-30 04:00] VITALS: BP 143/65; PULSE 113; RESP 17; TEMP 98.3; O2SAT 96
[2016-10-30] MEDS: hydrALAZINE HCL 25 MG TAB PO SCH ×2 (06:00→13:01)
[2016-10-30] MEDS: ISOSORBIDE MONONITRATE 30 MG TAB PO SCH (06:01)
[2016-10-30] MEDS: TACROLIMUS 1 MG CAP PO SCH (06:01)
[2016-10-30] MEDS: AMOXICILLIN/CLAVULANATE K 500 MG TAB PO SCH ×2 (06:01→13:02)
[2016-10-30] MEDS: ACETAMINOPHEN/HYDROcodone 325 MG/10 MG TAB PO PRN (06:01)
[2016-10-30] MEDS: INSULIN ASPART SUPPLEMENTAL SCALE SQ SCH ×2 (06:46→11:00)
[2016-10-30 08:00] VITALS: BP 140/67; PULSE 62; RESP 20; TEMP 98.6; O2SAT 98
[2016-10-30] MEDS: SODIUM CHLORIDE 0.9% FLUSH 10 ML FLUSH IV FLUSH SCH (09:00)
[2016-10-30] MEDS: LABETALOL HCL 200 MG TAB PO SCH (09:03)
[2016-10-30] MEDS: FUROSEMIDE 20 MG TAB PO SCH (09:03)
[2016-10-30] MEDS: PREGABALIN 25 MG CAP PO SCH ×2 (09:03→12:36)
[2016-10-30] MEDS: predniSONE 5 MG TAB PO SCH (09:03)
[2016-10-30] MEDS: DOCUSATE SODIUM 100 MG CAP PO SCH (09:03)
[2016-10-30] MEDS: cloNIDine HCL 0.1 MG TAB PO SCH (09:04)
[2016-10-30] MEDS: SODIUM BICARBONATE 650 MG TAB PO SCH (09:04)
[2016-10-30] MEDS: LORATADINE 10 MG TAB PO SCH (09:04)
[2016-10-30] MEDS: INSULIN DETEMIR 100 UNITS/ML VIAL SQ SCH (09:14)
[2016-10-30 09:25] VITALS: O2SAT 96
[2016-10-30 10:18] LABS: HEMATOCRIT 38.2 % (39.0-51.0); MEAN CELL VOLUME 84.1 FL (80.0-100.0); MEAN CORPUSCULAR HEMOGLOBIN 26.8 PG (27.0-34.0); MEAN CORPUSCULAR HGB CONC 31.9 % (32.0-36.0); PLATELET COUNT 326 TH/MM3 (150-450); RED BLOOD COUNT 4.54 MIL/MM3 (4.50-5.90); RED CELL DISTRIBUTION WIDTH 15.3 % (11.6-17.2); REVIEW FLAG FINAL; WHITE BLOOD COUNT 7.4 TH/MM3 (4.0-11.0)
[2016-10-30 11:01] LABS: BICARBONATE 27.4 MEQ/L (21.0-32.0); POTASSIUM 5.6 MEQ/L (3.5-5.1)
[2016-10-30 12:00] VITALS: BP 118/58; PULSE 60; RESP 18; TEMP 96.2; O2SAT 96
[2016-10-30] MEDS ORDERED: SODIUM POLYSTYRENE SULFONATE SUSP 15 GM/60 ML CUP PO ONE (13:15)
--- NOTE | 2016-10-30 13:58 | HHI.NPPN ---
Subjective History of Present Illness 66 year old with kidney transplant, HTN.DM not feeling well, has Left foot infection Additional Remarks had blood patch less neck pain Review of Systems General Constitutional: Fatigue Objective Data Data 10/29/16 10/30/16 19:00 07:00 Intake Total 480 ml 1208 ml Output Total 775 ml 600 ml Balance -295 ml 608 ml Intake Oral 480 ml 1200 ml IV Total 8 ml Output Urine Total 775 ml 600 ml # Voids 3 # Bowel Movements 0 1 Vital Signs Date Time Temp Pulse Resp B/P Pulse Ox O2 Delivery O2 Flow Rate FiO2 10/30/16 11:45 57 16 125/61 98 Nasal Cannula 2 10/30/16 11:31 Nasal Cannula 2.00 21 10/30/16 11:30 54 16 119/59 95 Nasal Cannula 2 10/30/16 11:19 98.0 57 16 138/63 90 Nasal Cannula 2 Manual Cuff/Palpation 10/30/16 09:25 96 Nasal Cannula 2.00 10/30/16 08:00 98.6 62 20 140/67 98 10/30/16 04:00 98.3 113 17 143/65 96 10/30/16 01:21 18 10/30/16 00:00 98.7 63 17 146/67 92 10/29/16 23:49 18 10/29/16 22:30 96 Nasal Cannula 2.00 10/29/16 22:05 98.0 65 16 128/60 95 10/29/16 19:53 64 10/29/16 16:00 98.1 60 20 131/63 93 10/29/16 16:00 61 128/60 -: 10/30/16 0830 10/30/16 0830 Physical Exam General Appearance: Well Developed, Well Nourished Neck Neck Exam: Neck Supple Pulmonary Resp Exam: Clear Bilaterally, Breath Sounds Equal Cardiology CV Exam: Regular, Normal Sinus Rhythm Gastrointestinal/Abdomen GI Exam: Soft, Non-Tender, Bowel Sounds Present Extremeties Extremities Exam: Moderate Edema Neurologic Neuro Exam: Alert Assessment/Plan Problem List: (1) Kidney transplant status, cadaveric Plan: Renal function is better. Cr 2.9 k 5.6 Kayexalate Lasix 20 mg q 12 On Prednisone 5 mg daily. hold off CellCept UOP 2.2 L d/w Dr Downing dc home on Lasix 20 mg po q 12 AI fu cardiology Tacrolimus 1 mg q 12 follow Tacrolimus level 11.1 BC from 10/13 growing Cryptococcus LP done complication neck pain Radiology aware need a patch Neurology agreed on Diflucan CSF negative for Cryptococcus BP better (2) DM (diabetes mellitus) Plan: Continue monitor blood glucose (3) Hypertension Plan: BP is stable. Cardiology note reviewed. Low EF is noted. (4) Sepsis Plan: ID following. Diflucan. Monitor Prograf level. Problem Qualifiers (1) DM (diabetes mellitus): Qualified Code: E11.42 - Type 2 diabetes mellitus with diabetic polyneuropathy , without long-term current use of insulin (2) Hypertension: Qualified Code: I10 - Essential hypertension Stacy Dias MD Oct 30, 2016 13:58
[2016-10-30] MEDS ORDERED: CALCIUM CARBONATE 500 MG CHEWABLE TAB CHEW ONE (14:00)
[2016-10-30] MEDS ORDERED: HYDR-3799 PO (14:10)
[2016-10-30] MEDS ORDERED: FURO20TA PO (14:10)
[2016-10-30] MEDS ORDERED: LABE100T2 PO (14:10)
[2016-10-30] MEDS ORDERED: NIFE90TA2 PO (14:10)
[2016-10-30] MEDS ORDERED: TACR1CAP PO (14:10)
[2016-10-30] MEDS ORDERED: SODI650T PO (14:10)
--- NOTE | 2016-10-30 14:14 | HHI.FF ---
Face to Face Verification Diagnosis: (1) DM (diabetes mellitus) (2) Aortic stenosis (3) Immunosuppression (4) Hypertension Home Health Nursing Order: Nursing assessment with vital signs Instructions: home health nurse for medication manegement, to communicate with primary care as necessary. I have seen patient Kobi Abbott, III on 10/30/16. My clinical findings support the need for the requested home health care services because: Deconditioned w/ increased weakness I certify that my clinical findings support that this patient is homebound because: Unsafe to leave home unassisted Barry Downing MD Oct 30, 2016 14:14
--- NOTE | 2016-10-30 14:56 | HHI.IDPN ---
Subjective Subjective Remarks doing well no fever no pain anywhere no headache any more hallux is better Antibiotics fluconasole augmentin Allergies: Coded Allergies: No Known Allergies (Unverified , 10/12/16) Objective . Vital Signs Date Time Temp Pulse Resp B/P Pulse Ox O2 Delivery O2 Flow Rate FiO2 10/30/16 12:00 96.2 60 18 118/58 96 10/30/16 11:45 57 16 125/61 98 Nasal Cannula 2 10/30/16 11:31 Nasal Cannula 2.00 21 10/30/16 11:30 54 16 119/59 95 Nasal Cannula 2 10/30/16 11:19 98.0 57 16 138/63 90 Nasal Cannula 2 Manual Cuff/Palpation 10/30/16 09:25 96 Nasal Cannula 2.00 10/30/16 08:00 98.6 62 20 140/67 98 10/30/16 04:00 98.3 113 17 143/65 96 10/30/16 01:21 18 10/30/16 00:00 98.7 63 17 146/67 92 10/29/16 23:49 18 10/29/16 22:30 96 Nasal Cannula 2.00 10/29/16 22:05 98.0 65 16 128/60 95 10/29/16 19:53 64 10/29/16 16:00 98.1 60 20 131/63 93 10/29/16 16:00 61 128/60 10/29/16 10/29/16 10/30/16 14:59 22:59 06:59 Intake Total 480 ml 1200 ml 8 ml Output Total 775 ml 600 ml Balance -295 ml 1200 ml -592 ml Intake Oral 480 ml 1200 ml 0 ml IV Total 8 ml Output Urine Total 775 ml 600 ml # Voids 3 # Bowel Movements 0 1 0 . Laboratory Tests Test 10/29/16 10/30/16 06:59 08:30 White Blood Count 7.5 TH/MM3 7.4 TH/MM3 Red Blood Count 4.59 MIL/MM3 4.54 MIL/MM3 Hemoglobin 12.5 GM/DL 12.2 GM/DL Hematocrit 38.3 % 38.2 % Mean Corpuscular Volume 83.4 FL 84.1 FL Mean Corpuscular Hemoglobin 27.2 PG 26.8 PG Mean Corpuscular Hemoglobin 32.6 % 31.9 % Concent Red Cell Distribution Width 15.1 % 15.3 % Platelet Count 353 TH/MM3 326 TH/MM3 Mean Platelet Volume 8.0 FL 8.1 FL Laboratory Tests Test 10/29/16 10/29/16 10/30/16 06:29 06:59 08:30 Sodium Level 136 MEQ/L 132 MEQ/L Potassium Level 4.9 MEQ/L 5.6 MEQ/L Chloride Level 100 MEQ/L 97 MEQ/L Carbon Dioxide Level 27.8 MEQ/L 27.4 MEQ/L Anion Gap 8 MEQ/L 8 MEQ/L Blood Urea Nitrogen 55 MG/DL 57 MG/DL Creatinine 2.87 MG/DL 2.99 MG/DL Estimat Glomerular Filtration 22 ML/MIN 21 ML/MIN Rate Random Glucose 108 MG/DL 224 MG/DL Calcium Level 10.1 MG/DL 9.9 MG/DL B-Type Natriuretic Peptide 1465 PG/ML Imaging Last Impressions Chest X-Ray 10/26/16 0000 Signed Impressions: Service Date/Time: Wednesday, October 26, 2016 10:09 - CONCLUSION: Marked deterioration in the appearance of the chest is significant interstitial edema. Terry Magallon MD FACR Lumbar Puncture Fluoroscopy 10/24/16 0000 Signed Impressions: Service Date/Time: Monday, October 24, 2016 10:21 - CONCLUSION: Uncomplicated fluoroscopically guided lumbar puncture with pressures as above. Niall Nam MD Brain MRI 10/23/16 0000 Signed Impressions: Service Date/Time: Sunday, October 23, 2016 10:02 - CONCLUSION: 1. No acute intracranial abnormality. 2. No acute infarction. 3. Prominent vascular channel adjacent to the left insular cortex. Chung Handley MD Lower Extremity Ultrasound 10/22/16 0000 Signed Impressions: Service Date/Time: Saturday, October 22, 2016 11:46 - CONCLUSION: 1. No DVT. 2. Superficial thrombus in the left lesser saphenous vein. 3. Fluid collection seen around the transplant right kidney. Derrek Lopez MD Foot X-Ray 10/22/16 0000 Signed Impressions: Service Date/Time: Saturday, October 22, 2016 12:28 - CONCLUSION: 1. Loss of cortical definition at the proximal lateral aspect of the 1st proximal phalanx concerning for some possible destruction in this region. There is underlying chronic change at this area. 2. 0.9 cm linear metallic foreign body seen in the proximal plantar lateral aspect of the 1st digit soft tissues. 3. Prominent hypertrophic change at the hind foot and the mid foot. Derrek Lopez MD Renal Ultrasound 10/18/16 Signed Impressions: Service Date/Time: October 20:18 - CONCLUSION: 1. Resistive indices of the transplant kidney have increased slightly in the interim and are now at the upper limits of normal. 2. No acute obstructive uropathy demonstrated. Parenchymal echogenicity within normal limits. Derrek Arriaza MD Liver Ultrasound 10/18/16 Signed Impressions: Service Date/Time: October 20:01 - CONCLUSION: 1. Nonspecific hepatomegaly. 2. 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 3. Atrophied right kidney. Derrek Arriaza MD Physical Exam CONSTITUTIONAL/GENERAL: This is an adequately nourished patient, in no apparent distress. OOB in a chair off O2 TUBES/LINES/DRAINS: LUE AV fistula with good thrill, no e/o infx SKIN: No jaundice, rashes, or lesions. HEENT: no facial edema no conjunctival injections hemorrages CARDIOVASCULAR: Regular rate and rhythm + murmur 1-2 /6 holosystolic on R and L upper sternal border RESPIRATORY/CHEST: Symmetric, unlabored respirations. Clear to auscultation. Breath sounds equal bilaterally. No wheezes, rales, or rhonchi. GASTROINTESTINAL: Abdomen soft, non-tender, nondistended. No hepato-splenomegaly , or palpable masses. No guarding. Bowel sounds present. MUSCULOSKELETAL: Extremities without clubbing, cyanosis, or edema R foot R hallux with healing nailbed NEUROLOGICAL: Awake and alert. Motor and sensory grossly within normal limits. Follows commands. Clear speech Moves all extremities. PSYCHIATRIC: No obvious anxiety/depression. no apparent hallucinations or other psychotic thought process. Assessment & Plan Remarks Disseminated cryptococcus neophormans - crptococcal fungemia - source is probably PNA (clinically localizing at the inital presenttion) Headache, r/o crypto meninitis: LP not c/w crypto meningitis crypto AG negative CHF exacebrbation, resolved - 2 D echo with 35% EF as of 08/20 Mod to severe on 2 D echo - first diagnosed in 2014 - appreciate cards input; OK to proceed with cath for pre -op valve assessment; - OK to proceed with TAVR/ AVR if remains clinially disease free with suppressed crypto AG ? L hallux paronichim, sp naiol removal, clx withFuzarium - cw onychomycosis Fluid collection seen around the transplant right kidney. - stable, dw Dr Dias + Emesis; - resolved LFT Ok except mild elevation of alk phos + persistent neck ache resolved cont fluconazole 400 (adjusted), PO , after 3 mos can reduce to 200 ant treat for 6-12 mos (total) script printed , given to RN - minimize immunosuppression if feasible - chk LFTs while on fluc stop augmentin chk urine eos; fu pmo lead for severe will need to be folloewd by Dr Oneill after d/c OK to dc home dw Nancy Sales MD Oct 30, 2016 14:56
[2016-10-30] MEDS ORDERED: FLUC200T2 PO ×2 (14:58→15:00)
[2016-10-30] MEDS ORDERED: LABETALOL HCL 100 MG TAB PO SCH (21:00)
--- NOTE | 2016-11-01 13:23 | HHI.DS ---
Discharge Summary Admission Date Oct 17, 2016 at 02:00 Discharge Date: Oct 30, 2016 Admitting Diagnosis Chest Pain, CHF, Fever, Chronic Immunosuppression (1) CHF exacerbation ICD Code: I50.9 (2) Aortic stenosis ICD Code: I35.0 (3) Fungemia ICD Code: B49 Procedures Current Medications Sodium Chloride 2 ml 2 ml UNSCH PRN IVF FLUSH AFTER USING IV ACCESS; Start at 17:30; Stop 10/17/16 at 02:00; Status DC Sodium Chloride (NS 500 ml Inj) 500 ml @ 500 mls/hr ONCE ONCE IV Last administered on 10/16/16 17:30; Start 10/16/16 at 17:30; Stop 10/16/16 at 18:29 ; Status DC Morphine Sulfate (Morphine Inj) 4 mg ONCE ONCE IV PUSH Last administered on 18:00; Start 10/16/16 at 18:00; Stop 10/16/16 at 18:01; Status DC Ondansetron HCl (Zofran Inj) 4 mg ONCE ONCE IV PUSH Last administered on 18:00; Start 10/16/16 at 18:00; Stop 10/16/16 at 18:01; Status DC Tacrolimus (Prograf) 3 mg ONCE ONCE PO Last administered on 10/16/16 18:30; Start 10/16/16 at 18:15; Stop 10/16/16 at 18:16; Status DC Acetaminophen (Tylenol) 1,000 mg ONCE ONCE PO Last administered on 10/16/16 18:45; Start 10/16/16 at 18:45; Stop 10/16/16 at 18:46; Status DC Mycophenolate Mofetil 500 mg 500 mg ONCE PO Last administered on 10/16/16 20: 32; Start 10/16/16 at 18:45; Stop 10/17/16 at 10:44; Status DC Piperacillin Sod/ Tazobactam Sod 50 ml @ 100 mls/hr ONCE ONCE IV Last administered on 10/16/16 18:45; Start 10/16/16 at 18:45; Stop 10/17/16 at 13:44 ; Status DC Vancomycin HCl/ Sodium Chloride (Vancomycin Inj/ NS 250 ml Inj) 250 ml @ 250 mls/hr ONCE ONCE IV Last administered on 10/16/16 18:45; Start 10/16/16 at 18 :45; Stop 10/16/16 at 19:44; Status DC Hydromorphone HCl (Dilaudid Pf Inj) 1 mg ONCE ONCE IV PUSH Last administered on 10/16/16 19:15; Start 10/16/16 at 19:15; Stop 10/16/16 at 19:16; Status DC Sodium Chloride (NS Flush) 2 ml UNSCH PRN IV FLUSH FLUSH AFTER USING IV ACCESS ; Start 10/16/16 at 19:30 Sodium Chloride (NS Flush) 2 ml BID IV FLUSH Last administered on 10/23/16 09: 00; Start 10/16/16 at 21:00 Naloxone HCl (Narcan Inj) 0.4 mg UNSCH PRN IV SEE LABEL COMMENTS; Start at 19:30 Hydromorphone HCl 1 mg 1 mg Q4H PRN IV PUSH pain >5 Last administered on 21:07; Start 10/17/16 at 02:00; Stop 10/22/16 at 11:08; Status DC Piperacillin Sod/ Tazobactam Sod 100 ml @ 200 mls/hr Q6H IV Last administered on 10/17/16 12:56; Start 10/17/16 at 02:00; Stop 10/17/16 at 13:44; Status DC Pharmacy Profile Note (Vancomycin Consult Pharmacy) 0 ml @ 0 mls/hr UNSCH OTHER ; Start 10/17/16 at 02:00; Stop 10/19/16 at 14:48; Status DC Clonidine (Catapres) 0.1 mg DAILY PO Last administered on 10/23/16 09:14; Start 10/17/16 at 09:00 Docusate Sodium (Colace) 100 mg BID PO Last administered on 10/23/16 09:15; Start 10/17/16 at 09:00 Furosemide (Lasix) 20 mg DAILY PO Last administered on 10/22/16 07:57; Start 10/17/16 at 09:00; Stop 10/22/16 at 14:07; Status DC Isosorbide Mononitrate (Imdur) 30 mg DAILY@07 PO Last administered on 06:11; Start 10/17/16 at 07:00 Labetalol HCl (Trandate) 200 mg BID PO Last administered on 10/23/16 09:14; Start 10/17/16 at 09:00 Lorazepam (Ativan) 3 mg HS PO Last administered on 10/22/16 21:07; Start 10/17 at 21:00 Mycophenolate Mofetil (Cellcept) 500 mg BID PO Last administered on 10/17/16 08:30; Start 10/17/16 at 09:00; Stop 10/17/16 at 16:03; Status DC Nifedipine (Procardia Xl) 30 mg HS PO Last administered on 10/22/16 21:07; Start 10/17/16 at 21:00 Prednisone (Deltasone) 5 mg DAILY PO Last administered on 10/23/16 09:14; Start 10/17/16 at 09:00 Pregabalin (Lyrica) 25 mg TID PO Last administered on 10/23/16 09:14; Start at 09:00 Sodium Bicarbonate (Sodium Bicarbonate) 650 mg BIDPC PO Last administered on 09:14; Start 10/17/16 at 09:00 Tacrolimus (Prograf) 3 mg Q12H PO Last administered on 10/17/16 02:46; Start 10/17/16 at 02:30; Stop 10/17/16 at 10:41; Status DC Albuterol/ Ipratropium (Duoneb Neb) 1 ampule Q6HR NEB NEB Last administered on 10/18/16 15:23; Start 10/17/16 at 04:00; Stop 10/18/16 at 18:54; Status DC Albuterol/ Ipratropium (Duoneb Neb) 1 ampule Q2HR NEB PRN NEB wheezing; Start 10/17/16 at 02:30 Dextrose (D50w (Vial) Inj) 50 ml UNSCH PRN IV HYPOGLYCEMIA-SEE COMMENTS; Start 10/17/16 at 02:30 Glucagon (Glucagon Inj) 1 mg UNSCH PRN OTHER HYPOGLYCEMIA-SEE COMMENTS; Start 10/17/16 at 02:30 Insulin Aspart (NovoLOG SUPPLEMENTAL SCALE) 1 ACHS SLIDING SCALE SQ Last administered on 10/23/16 06:12; Start 10/17/16 at 07:00 Heparin Sodium (Porcine) 5000 units 5,000 units Q8HR SQ Last administered on 05:12; Start 10/17/16 at 14:00 Vancomycin HCl/ Sodium Chloride (Vancomycin Inj/ NS 250 ml Inj) 250 ml @ 250 mls/hr ONCE ONCE IV Last administered on 10/17/16 09:43; Start 10/17/16 at 10 :00; Stop 10/17/16 at 10:59; Status DC Sodium Polystyrene Sulfonate (Kayexalate Liq) 15 gm ONCE ONCE PO Last administered on 10/17/16 12:54; Start 10/17/16 at 10:30; Stop 10/17/16 at 10:31 ; Status DC Tacrolimus 3 mg 3 mg BID@06,18 PO Last administered on 10/20/16 06:00; Start 10/17/16 at 18:00; Stop 10/20/16 at 14:19; Status DC Cefepime HCl/ Sodium Chloride (Maxipime Inj/NS Inj) 100 ml @ 200 mls/hr Q24H IV Last administered on 10/18/16 14:14; Start 10/17/16 at 14:00; Stop at 14:48; Status DC Mycophenolate Mofetil 500 mg 500 mg BID@06,18 PO Last administered on 05:12; Start 10/17/16 at 18:00 Sodium Bicarbonate/ Sodium Chloride (Sodium Bicarbonate 8.4% Inj/1/2 NS 1000 ml Inj) 1,075 ml @ 100 mls/hr [id number] IV Last administered on 10/19/16 06:08; Start 10/17/16 at 21:00; Stop 10/19/16 at 13:15; Status DC Tolvaptan 15 mg 15 mg ONCE ONCE PO Last administered on 10/17/16 22:06; Start 10/17/16 at 20:00; Stop 10/17/16 at 20:01; Status DC Vancomycin HCl/ Sodium Chloride (Vancomycin Inj/ NS 500 ml Inj) 515 ml @ 250 mls/hr ONCE ONCE IV Last administered on 10/18/16 12:56; Start 10/18/16 at 12 :00; Stop 10/18/16 at 14:03; Status DC Sodium Chloride ([place] Saline 0.65% [facility]/ [place]) 2 drop UNSCH PRN EACH NARE dryness; Start 10/18/16 at 19:00; Stop 10/18/16 at 19:41; Status DC Phenol (Chloraseptic [place]) 2 spray Q2H PRN OROPHARYNG sore throat Last administered on 10/18/16 22:19; Start 10/18/16 at 19:00 Sodium Chloride 2 spray 2 spray UNSCH PRN NASAL DRYNESS; Start 10/18/16 at 19: 41 Micafungin Sodium/ Sodium Chloride (Mycamine Inj/NS Inj) 100 ml @ 100 mls/hr Q24H IV Last administered on 10/22/16 16:13; Start 10/19/16 at 16:00 Loratadine (Claritin) 5 mg DAILY PO Last administered on 10/22/16 07:56; Start 10/20/16 at 12:00 Miscellaneous (Pill Splitter) 1 ea UNSCH PRN OTHER SEE LABEL COMMENTS; Start at 11:15 Amoxicillin/ Clavulanate Potassium (Augmentin) 500 mg Q8HR PO Last administered on 10/23/16 05:12; Start 10/20/16 at 14:00 Tacrolimus 3 mg 3 mg BID@06,18 PO Last administered on 10/23/16 05:11; Start 10/20/16 at 18:00 Fluconazole/ Sodium Chloride (Diflucan 200 Mg Premix Bag) 100 ml @ 100 mls/hr Q24H IV Last administered on 10/22/16 16:14; Start 10/20/16 at 17:00 Insulin Detemir (Levemir Inj) 10 units Q12HR SQ Last administered on 10/23/16 09:24; Start 10/22/16 at 21:00 Acetaminophen/ Hydrocodone Bitart ([place] 5-325 Mg) 1 tab Q4H PRN PO pain 3-10 Last administered on 10/23/16 05:12; Start 10/22/16 at 11:15 Furosemide (Lasix) 20 mg BIDAC PO Last administered on 6/20/17at 06:11; Start 10/22/16 at 16:00 Lorazepam (Ativan Inj) 1 mg ONCE ONCE IV PUSH Last administered on 10/23/16t 09:42; Start 10/23/16 at 09:45; Stop 10/23/16 at 09:46; Status DC Brief History - From Admission History from patient, ER PA communication, and review of medical records. Patient reported that he was having chills since . He stated he came to the emergency room at that time on afternoon and he was given clindamycin upon discharge. He stated he took clindamycin for 3 days duration and did not improve. He reports his shakes were getting worse and worse and he basically had to sit up all night because of this. He therefore decided to come back to hospital. He reports that he does have some cough which is worsening with time. He states the color of his sputum is white. Denies diarrhea. He states he did have some loose bowel movements initially when he first got IV clindamycin in the emergency room. But this has resolved since then. He reports of mild urinary burning. denies dysuria. Patient is on immunosuppressant therapy due to his renal transplant status. He will also reports of recent wound surgery with his rare/endangered species specialist Dr. Matos. On review of medical records, he did have surgical excision of left foot abscess on August 19, 2016. He is also diabetic. CBC/BMP: 10/30/16 0830 10/30/16 0830 Significant Findings Laboratory Tests Test 10/29/16 10/30/16 15:17 08:30 Prothrombin Time 11.7 SEC (9.8-11.6) Activated Partial 30.3 SEC Thromboplast Time (24.3-30.1) Hemoglobin 12.2 GM/DL (13.0-17.0) Hematocrit 38.2 % (39.0-51.0) Mean Corpuscular Hemoglobin 26.8 PG (27.0-34.0) Mean Corpuscular Hemoglobin 31.9 % Concent (32.0-36.0) Sodium Level 132 MEQ/L (136-145) Potassium Level 5.6 MEQ/L (3.5-5.1) Chloride Level 97 MEQ/L (98-107) Blood Urea Nitrogen 57 MG/DL (7-18) Creatinine 2.99 MG/DL (0.60-1.30) Estimat Glomerular Filtration 21 ML/MIN (>89) Rate Random Glucose 224 MG/DL (74-106) Imaging Last Impressions Chest X-Ray 10/26/16 Signed Impressions: Service Date/Time: Wednesday, October 26, 2016 10:09 - CONCLUSION: Marked deterioration in the appearance of the chest is significant interstitial edema. Terry Magallon MD FACR Lumbar Puncture Fluoroscopy 10/24/16 Signed Impressions: Service Date/Time: Monday, October 24, 2016 10:21 - CONCLUSION: Uncomplicated fluoroscopically guided lumbar puncture with pressures as above. Niall Nam MD Brain MRI 10/23/16 Signed Impressions: Service Date/Time: Sunday, October 23, 2016 10:02 - CONCLUSION: 1. No acute intracranial abnormality. 2. No acute infarction. 3. Prominent vascular channel adjacent to the left insular cortex. Chung Handley MD Lower Extremity Ultrasound 10/22/16 Signed Impressions: Service Date/Time: Saturday, October 22, 2016 11:46 - CONCLUSION: 1. No DVT. 2. Superficial thrombus in the left lesser saphenous vein. 3. Fluid collection seen around the transplant right kidney. Derrek Lopez MD Foot X-Ray 10/22/16 Signed Impressions: Service Date/Time: Saturday, October 22, 2016 12:28 - CONCLUSION: 1. Loss of cortical definition at the proximal lateral aspect of the 1st proximal phalanx concerning for some possible destruction in this region. There is underlying chronic change at this area. 2. 0.9 cm linear metallic foreign body seen in the proximal plantar lateral aspect of the 1st digit soft tissues. 3. Prominent hypertrophic change at the hind foot and the mid foot. Derrek Lopez MD Renal Ultrasound 10/18/16 Signed Impressions: Service Date/Time: October 20:18 - CONCLUSION: 1. Resistive indices of the transplant kidney have increased slightly in the interim and are now at the upper limits of normal. 2. No acute obstructive uropathy demonstrated. Parenchymal echogenicity within normal limits. Derrek Arriaza MD Liver Ultrasound 10/18/16 Signed Impressions: Service Date/Time: October 20:01 - CONCLUSION: 1. Nonspecific hepatomegaly. 2. 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 3. Atrophied right kidney. Derrek Arriaza MD PE at Discharge GENERAL: This is a well-nourished, well-developed patient in NAD NECK: pt does have good range of motion even w the pain he mentions. palpation of the neck musculature brings relief. CARDIOVASCULAR: Regular rate and rhythm. Systolic murmur at aortic area RESPIRATORY: Clear to auscultation. Breath sounds equal bilaterally. No wheezes GASTROINTESTINAL: Abdomen soft, non-tender, nondistended No guarding. MUSCULOSKELETAL:move extremities. NEURO: AAO X 3. answers questions appropriately Hospital Course 10/29/16=== = Discussed with anesthesia. Patient had heparin subcutaneous this morning. Hold subcutaneous heparin. Will be nothing by mouth at midnight. -Creatinine relatively stable. Decrease Lasix. Strict monitoring of intake and output. //Aortic stenosis. With decreased ejection fraction. Consult cardiology. Add hydralazine //Post LP headache. Neurology following. Blood patch plan for tomorrow. //Decreased renal function. Creatinine 2.8 from 2.3 yesterday. Liberalize fluid restrictions. --Optimized blood pressure meds for aortic stenosis. Increased nifedipine. //Acuteute hypoxic respiratory failure -Secondary to fluid overload. Resolved. Maintain euvolemic. //Fungemia -s/p Micafungi and on IV Diflucan. -Positive wound cultures from toenail. -Infectious disease is following and managing. -Per infectious disease LILIYA will be based on final cultures. also if + for crypto needs LP. s/p LP -MRI showed prominent vascular channel adjacent to the left insular cortex. -So far current repeat blood cultures are negative. and spinal fluid cx neg x 24 hrs //Hyponatremia -patient given dose of [place]. -Improved. //L hallux paronychia, -failed outpatient therapy. podiatry following and evaluated pt, No need to do anything with the foreign body. All foot problems have resolved. -s/p total nail avulsion on 10/18/2016. //Status post renal transplant -management per nephrology, Dr. Dias ff. -on home meds -renal ultrasound showed no obstruction. -Being managed by overhead crane operator. Continues to improve. //Acute on Chronic kidney disease -Status post transplant. -Branch Officer is following. -on lasix. //Type 2 diabetes insulin-dependent -home dosage is NovoLog sliding scale and Lantus 18 units at night. -on Levemir 10 units twice a day. Continue with insulin sliding scale. -Continue with hypoglycemic protocol. //Hyperkalemia -s/p Kayexalate. -Mildly elevated. Being managed by overhead crane operator. //Sinusitis -Patient is on Augmentin. Claritin and nasal saline spray. //History of congestive heart failure //Aortic stenosis. -2 D echo with 35% EF as of 08/20 -BNP and elevated. -Mild trace edema in a clinical area. -Echo done on 10/20/2016 showed ejection fraction 35% and aortic stenosis. -Resolution Analyst consulted and since LILIYA will not be done stated follow-up when necessary. -Lasix per overhead crane operator. -Chest post fluid overload and respiratory failure 10/26. Resolved with diuresis. -Maintain euvolemic. -10/29. Change focus from diuresis to afterload reduction. Cardiology consult. //Lower extremity foot/calf pain -This seems to be due to more osteoarthritis. Questionable gout. Uric acid mildly elevated. --US Doppler showed superficial thrombosis. no DVT -xray showed possible foreign body and 1st proximal phalange destruction and chronic changes. -per Dr. Matos No need to do anything with the foreign body. All foot problems have resolved. //Superficial thrombosis -TEDS placed yesterday. encourage ambulation. unable to take NSAIDS due to renal disease. -improved with treatment. //DVT prophylaxis heparin resumed //GI prophylaxis on pantoprazole. Discharge Planning -we'll need clearance from infectious disease. Pending blood patch for post LP headache. Pt Condition on Discharge: Good Discharge Disposition: Disch w/ Home Health Serv Discharge Time: > 30 minutes Discharge Instructions DIET: Follow Instructions for: Diabetic Diet, Renal Failure Diet Activities you can perform: Regular-No Restrictions Follow up Referrals: Infectious Disease - 1 Week with Radha Latif MD Nephrology - 1 Week with Stacy Dias MD PCP Follow-up - 1 Week with Kristen Gordon D.o. Podiatry - 1 Week SNF/SKILLED NURSING/HH with [facility] New Orders: CBC WITH DIFF - 2-3 Days COMP MET PROF (CMP) - 3-5 Days New Medications: Fluconazole (Fluconazole) 200 Mg Tab 400 MG PO DAILY Infection #30 Ref 5 TAB Hydralazine HCl (Hydralazine HCl) 25 Mg Tablet 25 MG PO Q8HR heart Days 30 TAB Labetalol (Labetalol) 100 Mg Tab 100 MG PO BID heart Days 30 TAB Nifedipine (Nifedipine ER) 90 Mg Tab 90 MG PO HS heart Days 30 TAB Changed Medications: Furosemide (Furosemide) 20 Mg Tab 20 MG PO BID Blood Pressure Management #30 TAB (Changed from: DAILY) Sodium Bicarbonate (Sodium Bicarbonate) 650 Mg Tab 650 MG PO DAILY low bicarb #60 Ref 0 TAB (Changed from: BIDPC) Tacrolimus (Tacrolimus) 1 Mg Cap 1 MG PO Q12H Prevent Transplant Reject Days 30 Ref 0 CAP (Changed from: 3 MG) Continued Medications: Albuterol 18 GM Inh (Ventolin Hfa 18 GM Inh) 90 Mcg/Act Aer 1 PUFF INH Q4H PRN SHORTNESS OF BREATH #1 Ref 0 INHALER Clonidine (Clonidine) 0.1 Mg Tab 0.1 MG PO DAILY Blood Pressure Management Ref 0 TAB Docusate Sodium (Colace) 100 Mg Cap 100 MG PO BID Constipation Ref 0 CAP Docusate Sodium (Colace) 100 Mg Capsule 100 MG PO BID Constipation Ferrous Sulfate (Feosol) 200 Mg Tab 200 MG PO DAILY Nutritional Supplement #30 Ref 0 TAB Hydrocodone-Acetaminophen (Hydrocodone-Acetaminophen) 10-325 mg Tab 1 TAB PO TID PRN PAIN Ref 0 TAB Insulin Aspart Inj (Novolog Inj) 1,000 Unit/10 Ml Vial 0 SQ ACHS AND 3AM Sliding Scale as directed. Blood Sugar Management #10 Ref 0 ML Insulin Glargine Inj (Lantus Inj) 100 Unit/Ml Inj 24 UNITS SQ nightly Isosorbide Mononitrate ER (Isosorbide Mononitrate ER) 30 Mg Cherise 30 MG PO DAILY Prevent Chest Pain #30 Ref 0 TAB Linaclotide (Linzess) 290 Mcg Cap 290 MCG PO DAILY PRN CONSTIPATION Ref 0 CAP Lorazepam (Ativan) 1 Mg Tab 3 MG PO HS Insomnia Ref 0 TAB Multiple Vitamin (Multiple Vitamin) 1 Tab 1 TAB PO DAILY Nutritional Supplement Ref 0 TAB Mycophenolate (Cellcept) 500 Mg Tab 500 MG PO BID Immunosuppression Ref 0 TAB Polyethylene Glycol 3350 Powder (Miralax Powder) 17 Gm Powd 17 GM PO DAILY Mix and dissolve one measuring cap-ful (17 grams) in water or juice. Constipation #1 Ref 0 CAN Prednisone (Prednisone) 5 Mg Tab 5 MG PO DAILY Ref 0 TAB Pregabalin (Lyrica) 25 Mg Cap 25 MG PO TID Ref 0 CAP Tiotropium Inh (Spiriva Handihaler) 18 Mcg Cap 18 MCG INH DAILY 1 capsule = 18 mcg COPD #30 Ref 0 CAP Discontinued Medications: Clindamycin (Clindamycin) 300 Mg Cap 300 MG PO TID Infection Days 10 CAP Ferrous Sulfate (Feosol) 200 Mg Tab 45 MG PO DAILY Nutritional Supplement #30 Ref 0 TAB Insulin Glargine Inj (Lantus Inj) 1,000 Unit/10 Ml Vial 24 UNITS SQ HS Blood Sugar Management Ref 0 VIAL Labetalol (Labetalol) 200 Mg Tab 200 MG PO BID Blood Pressure Management Ref 0 TAB Nifedipine ER 24 HR (Procardia XL) 30 Mg Tab 30 MG PO HS #30 Ref 0 TAB ([Trimix Inj]) 1 INJECTION IC INTERMITTENT PRN ERECTILE DYSFUNCTION Barry Downing MD Nov 01, 2016 13:23
== END 2016-10-30 16:26 | disposition home or self-care (01) | DRG 606 ==
LOC: NEPE 16:46 → NEDA 19:25 → NEPGCP 21:28 → OBSVTOIN 10-17 02:00 → N04B 10-19 09:03 → N03B 10-26 09:40 → N04A 10-27 11:06
PROVIDERS: ADMIT Internal Medicine; ATTEND Internal Medicine
PROC: 0HDRXZZ Extraction of Toe Nail, External Approach (ICD-10-PCS; 2016-10-18)
PROC: 009U3ZX Drainage of Spinal Canal, Percutaneous Approach, Diagnostic (ICD-10-PCS; principal; 2016-10-24)
PROC: 5A09357 Assistance with Respiratory Ventilation, Less than 24 Consecutive Hours, Continuous Positive Airway Pressure (ICD-10-PCS; 2016-10-26)
PROC: 3E0R3GC Introduction of Other Therapeutic Substance into Spinal Canal, Percutaneous Approach (ICD-10-PCS; 2016-10-30)
DX: B35.1 Tinea unguium (principal); I50.21 Acute systolic (congestive) heart failure; J96.01 Acute respiratory failure with hypoxia; N17.9 Acute kidney failure, unspecified; B45.8 Other forms of cryptococcosis; J18.9 Pneumonia, unspecified organism; I42.9 Cardiomyopathy, unspecified; I48.91 Unspecified atrial fibrillation; E87.1 Hypo-osmolality and hyponatremia; Z94.0 Kidney transplant status; B49 Unspecified mycosis; K22.70 Barrett's esophagus without dysplasia; E11.42 Type 2 diabetes mellitus with diabetic polyneuropathy; E11.22 Type 2 diabetes mellitus with diabetic chronic kidney disease; G62.9 Polyneuropathy, unspecified; L03.032 Cellulitis of left toe; E87.5 Hyperkalemia; J44.9 Chronic obstructive pulmonary disease, unspecified; F41.9 Anxiety disorder, unspecified; H91.90 Unspecified hearing loss, unspecified ear; K21.9 Gastro-esophageal reflux disease without esophagitis; M19.90 Unspecified osteoarthritis, unspecified site; M54.9 Dorsalgia, unspecified; Z79.52 Long term (current) use of systemic steroids; Z79.899 Other long term (current) drug therapy; I73.9 Peripheral vascular disease, unspecified; E78.5 Hyperlipidemia, unspecified; B19.20 Unspecified viral hepatitis C without hepatic coma; Z87.891 Personal history of nicotine dependence; N18.9 Chronic kidney disease, unspecified; R13.10 Dysphagia, unspecified; I35.0 Nonrheumatic aortic (valve) stenosis; J32.9 Chronic sinusitis, unspecified; M79.662 Pain in left lower leg; S90.852D Superficial foreign body, left foot, subsequent encounter; Z79.4 Long term (current) use of insulin; G97.1 Other reaction to spinal and lumbar puncture; Y84.4 Aspiration of fluid as the cause of abnormal reaction of the patient, or of later complication, without mention of misadventure at the time of the procedure; I12.9 Hypertensive chronic kidney disease with stage 1 through stage 4 chronic kidney disease, or unspecified chronic kidney disease; M10.9 Gout, unspecified
CPT/HCPCS: 36600; 62270; 62273; 70551; 71010; 73620; 76705; 76776; 77003; 80048; 80053; 80069; 80076; 80197; 80202; 81001; 82550; 82805; 82945; 82948; 83605; 83735; 83880; 84100; 84157; 84443; 84484; 84550; 85025; 85027; 85610; 85730; 86403; 87040; 87070; 87102; 87107; 87205; 87206; 87804; 87899; 89051; 93005; 93306; 93970; 94640; 94664; 96361; 96365; 96368; 96375; G0378; J0692; J1170; J1450; J1644; J1815; J1940; J2060; J2248; J2270; J2405; J2543; J3370; J7040; J7050; J7507; J7512; J7517

== ENCOUNTER 2016-11-01 17:23 | Inpatient (IN) | payer MEDICARE, OTHER ==
[~2016-11-01] VITALS: Ht 185.4 cm; Wt 82.5 kg
[~2016-11-01 17:23] MED LIST changes: -CLIN1CAP6 PO; +COLA100C PO; +FLUC200T2 PO; +HYDR-3799 PO; +LABE100T2 PO; -LABE200T2 PO; -NIFE1TAB85 PO; +NIFE90TA2 PO; -TRIMIX IC
[2016-11-01 17:26] VITALS: BP 139/62; PULSE 71; RESP 18; TEMP 97.7; O2SAT 96
[2016-11-01 17:37] VITALS: O2SAT 98
[2016-11-01 17:42] VITALS: BP 135/82; PULSE 72; RESP 20; TEMP 98.4; O2SAT 100
[2016-11-01] MEDS ORDERED: PANTOPRAZOLE SODIUM 40 MG VIAL IVP ONE (17:45)
[2016-11-01] MEDS ORDERED: LIDOCAINE VISCOUS 2% SOLN 15 ML UDC PO ONE (17:45)
[2016-11-01] MEDS ORDERED: MORPHINE SULFATE 4 MG/ML INJ IV PUSH ONE (17:45)
[2016-11-01] MEDS ORDERED: ONDANSETRON HCL 4 MG/2 ML VIAL IVP ONE (17:45)
[2016-11-01] MEDS ORDERED: SODIUM CHLORIDE 0.9% FLUSH 10 ML FLUSH IV FLUSH PRN ×2 (17:45→20:00)
[2016-11-01] MEDS ORDERED: ALUMINUM/MAGNESIUM/SIMETH 30 ML CUP PO ONE (17:45)
--- NOTE | 2016-11-01 17:54 | PD ---
HPI Chief Complaint: Abdominal Pain Time Seen by Provider: 17:45 Travel History International Travel<30 days: No Contact w/Intl Traveler<30days: No Traveled to known affect area: No History of Present Illness HPI This is a 66-year-old male with history of the CHF, aortic stenosis, kidney transplant, IBD's, Sam's esophagitis, hypertension, COPD, atrial fibrillation, hepatitis C who presents today for evaluation of abdominal pain, nausea and vomiting. He reports that earlier this month he was admitted. He underwent a lumbar puncture and he developed a post-LP headache. He reports that he was supine for essentially 4 days and was told to drink as much coffee as possible to help with the headache. He reports that upon discharge he started to develop some epigastric abdominal discomfort. He has been having nausea and vomiting, burning sensation, which he relates as an acid reflux sensation. He called his tube buffer's office yesterday and was started on omeprazole. Symptoms have persisted which prompted evaluation today. For The past 2 days he has been primarily drinking water. He has not tolerated much in terms of solid foods. He has no appointment with tube buffer Dr. Dia's PA tomorrow. Denies chest pain, shortness of breath, fevers or chills. No other complaints. PFSH Past Medical History Hx Anticoagulant Therapy: No Arthritis: No Asthma: No Autoimmune Disease: No Blood Disorders: No Anxiety: No Depression: No Heart Rhythm Problems: No Cancer: No (kidney failure and new transplant in right anterior) Cardiac Catheterization: Yes Cardiovascular Problems: Yes High Cholesterol: No Chemotherapy: No Chest Pain: Yes Congestive Heart Failure: Yes (history of chf) COPD: No Cerebrovascular Accident: No Diabetes: Yes (INSULIN) Patient Takes Glucophage: No Dialysis: Yes (M-W-) Diminished Hearing: No Endocrine: No GERD: No Genitourinary: No Headaches: Yes (headaches from dialysis) Hepatitis: Yes (C CLEARED ) Hiatal Hernia: No Hypertension: Yes Immune Disorder: No Kidney Stones: No Musculoskeletal: Yes (disk bulges and hernias in spine) Neurologic: Yes (back pain) Psychiatric: No Reproductive: No Respiratory: Yes Immunizations Current: Yes Migraines: No Radiation Therapy: No Renal Failure: Yes Seizures: No Sickle Cell Disease: No Sleep Apnea: No Thyroid Disease: No Ulcer: No Past Surgical History Abdominal Surgery: No AICD: No Arteriovenous Shunt: Yes (L AV FISTULA) Body Medical Devices: right abdomen third kidney from transplant Cardiac Surgery: Yes (BILAT CAROTIDS) Ear Surgery: No Endocrine Surgery: No Eye Surgery: Yes Genitourinary Surgery: Yes (RIGHT RENAL TRANSPLANT, (R) NEPHROS./ URETERAL STENTS (MULTI)) Gynecologic Surgery: No Insulin Pump: No Joint Replacement: No Oral Surgery: No Pacemaker: No Thoracic Surgery: No Other Surgery: Yes (left foot surgery. ) Social History Alcohol Use: No Tobacco Use: No Substance Use: No Allergies-Medications (Allergen,Severity, Reaction): Coded Allergies: No Known Allergies (Unverified , 11/01/16) Reported Meds & Prescriptions Reported Meds & Active Scripts Active Fluconazole 200 Mg Tab 400 Mg PO DAILY Labetalol (Labetalol HCl) 100 Mg Tab 100 Mg PO BID 30 Days Hydralazine HCl 25 Mg Tablet 25 Mg PO Q8HR 30 Days Nifedipine ER (Nifedipine) 90 Mg Tab 90 Mg PO HS 30 Days Furosemide 20 Mg Tab 20 Mg PO BID Tacrolimus 1 Mg Cap 1 Mg PO Q12H 30 Days Sodium Bicarbonate 650 Mg Tab 650 Mg PO DAILY Spiriva Handihaler (Tiotropium Inh) 18 Mcg Cap 18 Mcg INH DAILY 1 capsule = 18 mcg Ventolin Hfa 18 GM Inh (Albuterol Sulfate) 90 Mcg/Act Aer 1 Puff INH Q4H PRN Reported Lantus Inj (Insulin Glargine) 100 Unit/Ml Inj 24 Units SQ NIGHTLY Colace (Docusate Sodium) 100 Mg Capsule 100 Mg PO BID Miralax Powder (Polyethylene Glycol 3350 Powder) 17 Gm Powd 17 Gm PO DAILY Mix and dissolve one measuring cap-ful (17 grams) in water or juice. Feosol (Ferrous Sulfate) 200 Mg Tab 200 Mg PO DAILY Multiple Vitamin 1 Tab 1 Tab PO DAILY Isosorbide Mononitrate ER (Isosorbide Mononitrate) 30 Mg Cherise 30 Mg PO DAILY Novolog Inj (Insulin Aspart) 1,000 Unit/10 Ml Vial 0 SQ ACHS AND 3AM Sliding Scale as directed. Hydrocodone-Acetaminophen 10-325 mg Tab 1 Tab PO TID PRN Ativan (Lorazepam) 1 Mg Tab 3 Mg PO HS Lyrica (Pregabalin) 25 Mg Cap 25 Mg PO TID Linzess (Linaclotide) 290 Mcg Cap 290 Mcg PO DAILY PRN Clonidine (Clonidine HCl) 0.1 Mg Tab 0.1 Mg PO DAILY Prednisone 5 Mg Tab 5 Mg PO DAILY Cellcept (Mycophenolate Mofetil) 500 Mg Tab 500 Mg PO BID Review of Systems Except as stated in HPI: all other systems reviewed are Neg Physical Exam Narrative GENERAL: Well-developed well-nourished male in no acute distress SKIN: Warm and dry. HEAD: Atraumatic. Normocephalic. EYES: Pupils equal and round. No scleral icterus. No injection or drainage. ENT: No nasal bleeding or discharge. Mucous membranes pink and moist. NECK: Trachea midline. No JVD. CARDIOVASCULAR: Regular rate and rhythm. No murmur appreciated. RESPIRATORY: No accessory muscle use. Clear to auscultation. Breath sounds equal bilaterally. No crackles. GASTROINTESTINAL: Abdomen soft, tender to palpation epigastrium/left upper quadrant without guarding. MUSCULOSKELETAL: No obvious deformities. No clubbing. No cyanosis. No edema. NEUROLOGICAL: Awake and alert. No obvious cranial nerve deficits. Motor grossly within normal limits. Normal speech. PSYCHIATRIC: Appropriate mood and affect; insight and judgment normal. Data Data Last Documented VS Vital Signs Date Time Temp Pulse Resp B/P Pulse Ox O2 Delivery O2 Flow Rate FiO2 11/01/16 17:42 98.4 72 20 135/82 100 Room Air Orders Complete Blood Count With Diff (11/01/16 17:45) Comprehensive Metabolic Panel (11/01/16 17:45) Lipase (11/01/16 17:45) Urinalysis - C+S If Indicated (11/01/16 17:45) Ct Abd/Pel W/O Iv Contrast (11/01/16 17:45) Iv Access Insert/Monitor (11/01/16 17:45) Ecg Monitoring (11/01/16 17:45) Oximetry (11/01/16 17:45) Ondansetron Inj (Zofran Inj) (11/01/16 17:45) Pantoprazole Inj (Protonix Inj) (11/01/16 17:45) Sodium Chloride 0.9% Flush (Ns Flush) (11/01/16 17:45) Electrocardiogram (11/01/16 17:45) Morphine Inj (Morphine Inj) (11/01/16 17:45) Al-Mag Hy-Si 40-40-4 Mg/Ml Liq (Mag-Al P (11/01/16 17:45) Lidocaine 2% Viscous (Xylocaine 2% Visco (11/01/16 17:45) Troponin I (11/01/16 17:45) Creatine Kinase (Cpk) (11/01/16 17:45) Famotidine Inj (Pepcid Inj) (11/01/16 18:00) Metoclopramide Inj (Reglan Inj) (11/01/16 19:30) Sodium Chlorid 0.9% 500 Ml Inj (Ns 500 M (11/01/16 19:30) Labs Laboratory Tests Test 11/01/16 18:00 White Blood Count 11.1 TH/MM3 Red Blood Count 4.49 MIL/MM3 Hemoglobin 12.4 GM/DL Hematocrit 37.2 % Mean Corpuscular Volume 82.9 FL Mean Corpuscular Hemoglobin 27.6 PG Mean Corpuscular Hemoglobin 33.3 % Concent Red Cell Distribution Width 14.8 % Platelet Count 282 TH/MM3 Mean Platelet Volume 8.5 FL Neutrophils (%) (Auto) 81.0 % Lymphocytes (%) (Auto) 10.7 % Monocytes (%) (Auto) 7.5 % Eosinophils (%) (Auto) 0.3 % Basophils (%) (Auto) 0.5 % Neutrophils # (Auto) 9.0 TH/MM3 Lymphocytes # (Auto) 1.2 TH/MM3 Monocytes # (Auto) 0.8 TH/MM3 Eosinophils # (Auto) 0.0 TH/MM3 Basophils # (Auto) 0.1 TH/MM3 CBC Comment DIFF FINAL Differential Comment Sodium Level 129 MEQ/L Potassium Level 5.6 MEQ/L Chloride Level 95 MEQ/L Carbon Dioxide Level 22.9 MEQ/L Anion Gap 11 MEQ/L Blood Urea Nitrogen 70 MG/DL Creatinine 3.68 MG/DL Estimat Glomerular Filtration 17 ML/MIN Rate Random Glucose 269 MG/DL Calcium Level 10.6 MG/DL Total Bilirubin 0.7 MG/DL Aspartate Amino Transf 12 U/L (AST/SGOT) Alanine Aminotransferase 19 U/L (ALT/SGPT) Alkaline Phosphatase 137 U/L Total Creatine Kinase 48 U/L Troponin I 0.02 NG/ML Total Protein 7.3 GM/DL Albumin 3.4 GM/DL Lipase 117 U/L [facility] Medical Decision Making Medical Screen Exam Complete: Yes Emergency Medical Condition: Yes Medical Record Reviewed: Yes Differential Diagnosis Gastritis, gastroesophageal reflux, peptic ulcer disease, pancreatitis, cholecystitis, biliary colic, acute coronary syndrome Narrative Course 66-year-old male with 3 days of epigastric pain, burning sensation in the epigastrium and in his throat after vomiting, relates it to an acid reflux type of sensation. Symptoms started after developing a post-lumbar puncture headache in which she was required to lay supine for several days and drink caffeineproducts. On examination he has tenderness to palpation in the epigastric and left upper quadrant. Plan is for basic lab work, EKG, and ECG monitoring pulse oximetry, CT abdomen and pelvis. He has a history of renal insufficiency and therefore CT without contrast has been ordered. He will be given a GI cocktail, Pepcid, Protonix, low-dose morphine. Upon reexamination the patient has had persistent vomiting, he has vomited 6 times since receiving the Zofran. Reglan has been ordered. His lab work reveals a increase in his BUN and creatinine from his baseline. His potassium is 5.6, unchanged from recent discharge. He was given 2 doses of Kayexalate when he was discharged which hasn't seemed to improve his hyperkalemia. He has mild hyponatremia as well. The plan is to admit the patient for intractable nausea and vomiting, renal insufficiency, hyponatremia and hyperkalemia. He was given a 500 earlier bolus of fluids. Discussed with Dr. Vincent who is agreeable. Procedures EKG Prior to Arrival: Yes Diagnosis Primary Impression: Nausea and vomiting Qualified Code: R11.2 - Intractable vomiting with nausea, unspecified vomiting type Additional Impressions: Renal insufficiency Hyponatremia Hyperkalemia Admitting Information Admitting Physician Requests: it Jamie Francisco Nov 01, 2016 17:54
[2016-11-01] MEDS ORDERED: FAMOTIDINE 20 MG/2 ML VIAL IV PUSH ONE (18:00)
[2016-11-01 18:43] LABS: BASOPHIL # 0.1 TH/MM3 (0-0.2); BASOPHIL % 0.5 % (0.0-2.0); EOSINOPHIL % 0.3 % (0.0-4.0); HEMATOCRIT 37.2 % (39.0-51.0); HEMO FLAGS DIFF FINAL; LYMPH % 10.7 % (9.0-44.0); LYMPHOCYTE # 1.2 TH/MM3 (1.0-4.8); MEAN CELL VOLUME 82.9 FL (80.0-100.0); MEAN CORPUSCULAR HEMOGLOBIN 27.6 PG (27.0-34.0); MEAN CORPUSCULAR HGB CONC 33.3 % (32.0-36.0); MONO % 7.5 % (0.0-8.0); PLATELET COUNT 282 TH/MM3 (150-450); RED BLOOD COUNT 4.49 MIL/MM3 (4.50-5.90); RED CELL DISTRIBUTION WIDTH 14.8 % (11.6-17.2); WHITE BLOOD COUNT 11.1 TH/MM3 (4.0-11.0)
[2016-11-01 18:58] LABS: ALKALINE PHOSPHATASE 137 U/L (45-117); ALT (GPT) 19 U/L (12-78); ANION GAP 11 MEQ/L (5-15); AST (GOT) 12 U/L (15-37); BICARBONATE 22.9 MEQ/L (21.0-32.0); BLOOD UREA NITROGEN 70 MG/DL (7-18); CHLORIDE 95 MEQ/L (98-107); GLOMERULAR FILTRATION RATE 17 ML/MIN (>89); POTASSIUM 5.6 MEQ/L (3.5-5.1); SODIUM (NA) 129 MEQ/L (136-145); TOTAL BILIRUBIN ADULT 0.7 MG/DL (0.2-1.0)
--- NOTE | 2016-11-01 18:59 | RADRPT ---
EXAM DATE/TIME: 11/01/2016 18:25 [place] COMPARISON: No previous studies available for comparison. INDICATIONS : Diffuse abdominal pain with nausea and vomiting. ORAL CONTRAST: No oral contrast ingested. RADIATION DOSE: 14.93 CTDIvol (mGy) MEDICAL HISTORY : Diabetes mellitus type 2. Gastroesophageal reflux disease. SURGICAL HISTORY : Renal transplant. Uretal stents. ENCOUNTER: Initial ACUITY: 3 days PAIN SCALE: 8/10 LOCATION: abdomen TECHNIQUE: Volumetric scanning of the abdomen and pelvis was performed. Using automated exposure control and ad justment of the mA and/or kV according to patient size, radiation dose was kept as low as reasonably achievable to obtain optimal diagnostic quality images. DICOM format image data is available electro nically for review and comparison. FINDINGS: LOWER LUNGS: The visualized lower lungs are clear. LIVER: Homogeneous density without lesion. There is no dilation of the biliary tree. No calcified gallston es. SPLEEN: Normal size without lesion. PANCREAS: Within normal limits. KIDNEYS: The [place] kidneys are small and atrophic in appearance. There is a transplant kidney in the right si de of the pelvis. There is a simple appearing cyst extending off the lower aspect of the transplant k [place] measuring up to 2 cm. There are renal vascular calcifications. There is no evidence of hydronep hrosis. ADRENAL GLANDS: Within normal limits. VASCULAR: There is no aortic aneurysm. BOWEL/MESENTERY: No oral contrast was given limiting the sensitivity. The stomach, small bowel, and colon demonstrate no acute abnormality. Moderate amount of stool is noted throughout the colon. There is no free intrap eritoneal air or fluid. ABDOMINAL WALL: Within normal limits. RETROPERITONEUM: There is no lymphadenopathy. BLADDER: No wall thickening or mass. REPRODUCTIVE: Within normal limits. INGUINAL: There is no lymphadenopathy or hernia. MUSCULOSKELETAL: Within normal limits for patient age. CONCLUSION: 1. Moderate amount of stool throughout the colon which could indicate constipation. 2. The [place] kidneys are small and atrophic. 3. Transplant kidney in the right side of the pelvis with simple appearing cyst. Robin Reid MD on November 01, 2016 at 18:53 Board Certified Radiologist. This report was verified electronically.
[2016-11-01 19:00] LABS: CREATINE KINASE 48 U/L (39-308)
[2016-11-01 19:30] VITALS: BP 142/80; PULSE 78; RESP 18; O2SAT 98
[2016-11-01] MEDS ORDERED: METOCLOPRAMIDE HCL 10 MG/2 ML VIAL IV PUSH ONE (19:30)
[2016-11-01] MEDS ORDERED: SODIUM CHLORID 0.9% 500 ML INJ 500 ML IV ONE (19:30)
[2016-11-01] MEDS ORDERED: INSULIN HUMAN REGULAR 1,000 UNITS/10 ML VIAL IV PUSH ONE (20:00)
[2016-11-01] MEDS ORDERED: DEXTROSE 50% IN WATER 50 ML VIAL(D50) IV PUSH ONE (20:00)
[2016-11-01] MEDS ORDERED: SODIUM POLYSTYRENE SULFONATE SUSP 15 GM/60 ML CUP PO ONE (20:00)
[2016-11-01] MEDS ORDERED: CALCIUM GLUCONATE 10% 1 GM/10 ML VIAL IV PUSH ONE (20:00)
[2016-11-01] MEDS ORDERED: NALOXONE HCL 0.4 MG/ML AMP IV PRN (20:00)
[2016-11-01 20:29] LABS: BLOOD, URINE NEG (NEG); COMMENT (UR) CULT NOT INDICATED; CULTURE IF INDICATED CULT NOT INDICATED; GLUCOSE,URINE NEG (NEG); HYALINE CAST, URINE 1 /lpf (RARE); KETONE, URINE NEG (NEG); NITRITE,URINE NEG (NEG); URINE COLOR YELLOW (YELLW/STRAW)
[2016-11-01 20:36] VITALS: BP 132/76; PULSE 70; RESP 16; O2SAT 100
[2016-11-01 21:30] VITALS: BP 160/75; PULSE 71; RESP 20; TEMP 98.3; O2SAT 97
[2016-11-01] MEDS: SODIUM CHLORIDE 0.9% FLUSH 10 ML FLUSH IV FLUSH SCH (22:00)
[2016-11-01] MEDS ORDERED: ONDANSETRON HCL 4 MG/2 ML VIAL IV PUSH PRN (23:45)
[2016-11-01] MEDS: MYCOPHENOLATE MOFETIL 500 MG TAB PO SCH (23:45)
[2016-11-02] VITALS (8 sets, daily range): BP systolic 148–187; BP diastolic 64–83; PULSE 64–81; RESP 16–20; TEMP 97.5–98.5; O2SAT 94–96
[2016-11-02] MEDS: TACROLIMUS 1 MG CAP PO SCH ×3 (00:04→21:23)
[2016-11-02] MEDS: MYCOPHENOLATE MOFETIL 500 MG TAB PO SCH ×3 (00:06→21:23)
--- NOTE | 2016-11-02 01:16 | HHI.HP ---
[facility] Primary Care Physician Kristen Gordon Admission Diagnosis intractable nausea and vomiting, renal insufficiency, hyperkalemia Diagnoses: Chief Complaint: constipation with nausea and vomiting Travel History International Travel<30 Days: No Contact w/Intl Traveler <30 Da: No Traveled to Known Affected Are: No History of Present Illness Written by Jessy Lan, acting as scribe for Dr. Vincent on 11/02/16 at 01:19. Constipated; states he did not have a bm during his last hospitalization; States he had acid reflux symptoms secondary to stool getting backed up; nausea with bilious vomit; epigastric discomfort with dyspepsia when he tried to eat and vomiting felt like it burned all the way back up. He reports oliguria but denies dysuria; denies fever. Sees Dr. Jj in [facility] for GI. Was supposed to have a routine follow up with him tomorrow. Review of Systems Except as stated in HPI: all other systems reviewed are Neg Past Family Social History Past Medical History Aortic Stenosis discovered during October 2016 hospitalization Hypertension Diabetes Atrial fibrillation Peripheral arterial disease Carotid artery diseasestatus post bilateral CEA Renal transplant [id number] COPD CHF Hyperlipidemia Anxiety Hepatitis C Neuropathy Arthritis . Past Surgical History Renal transplant on the [id number] Left foot abscess resectionApril 2016 Bilateral CEA Ureteral stents placement Right knee arthroscopy Left AV fistula placement . Reported Medications Reported Meds & Active Scripts Active Fluconazole 200 Mg Tab 400 Mg PO DAILY Labetalol (Labetalol HCl) 100 Mg Tab 100 Mg PO BID 30 Days Hydralazine HCl 25 Mg Tablet 25 Mg PO Q8HR 30 Days Nifedipine ER (Nifedipine) 90 Mg Tab 90 Mg PO HS 30 Days Furosemide 20 Mg Tab 20 Mg PO BID Tacrolimus 1 Mg Cap 1 Mg PO Q12H 30 Days Sodium Bicarbonate 650 Mg Tab 650 Mg PO DAILY Spiriva Handihaler (Tiotropium Inh) 18 Mcg Cap 18 Mcg INH DAILY 1 capsule = 18 mcg Ventolin Hfa 18 GM Inh (Albuterol Sulfate) 90 Mcg/Act Aer 1 Puff INH Q4H PRN Reported Lantus Inj (Insulin Glargine) 100 Unit/Ml Inj 24 Units SQ NIGHTLY Colace (Docusate Sodium) 100 Mg Capsule 100 Mg PO BID Miralax Powder (Polyethylene Glycol 3350 Powder) 17 Gm Powd 17 Gm PO DAILY Mix and dissolve one measuring cap-ful (17 grams) in water or juice. Feosol (Ferrous Sulfate) 200 Mg Tab 200 Mg PO DAILY Multiple Vitamin 1 Tab 1 Tab PO DAILY Isosorbide Mononitrate ER (Isosorbide Mononitrate) 30 Mg Cherise 30 Mg PO DAILY Novolog Inj (Insulin Aspart) 1,000 Unit/10 Ml Vial 0 SQ ACHS AND 3AM Sliding Scale as directed. Hydrocodone-Acetaminophen 10-325 mg Tab 1 Tab PO TID PRN Ativan (Lorazepam) 1 Mg Tab 3 Mg PO HS Lyrica (Pregabalin) 25 Mg Cap 25 Mg PO TID Linzess (Linaclotide) 290 Mcg Cap 290 Mcg PO DAILY PRN Clonidine (Clonidine HCl) 0.1 Mg Tab 0.1 Mg PO DAILY Prednisone 5 Mg Tab 5 Mg PO DAILY Cellcept (Mycophenolate Mofetil) 500 Mg Tab 500 Mg PO BID . Allergies: Coded Allergies: No Known Allergies (Unverified , 11/01/16) Active Ordered Medications Current Medications Ondansetron HCl (Zofran Inj) 4 mg ONCE ONCE IVP Last administered on 18:01; Start 11/01/16 at 17:45; Stop 11/01/16 at 17:47; Status DC Pantoprazole Sodium (Protonix Inj) 40 mg ONCE ONCE IVP Last administered on 18:01; Start 11/01/16 at 17:45; Stop 11/01/16 at 17:47; Status DC Sodium Chloride (NS Flush) 2 ml UNSCH PRN IV FLUSH FLUSH AFTER USING IV ACCESS ; Start 11/01/16 at 17:45; Stop 11/01/16 at 21:12; Status DC Morphine Sulfate (Morphine Inj) 2.5 mg ONCE ONCE IV PUSH Last administered on 11/01/16 18:00; Start 11/01/16 at 17:45; Stop 11/01/16 at 17:47; Status DC Al Hydrox/Mg Hydrox/Simethicone (Mag-Al Plus Susp Liq) 30 ml ONCE ONCE PO Last administered on 11/01/16 18:01; Start 11/01/16 at 17:45; Stop 11/01/16 at 17:47; Status DC Lidocaine HCl (Xylocaine 2% Viscous) 15 ml ONCE ONCE PO Last administered on 18:02; Start 11/01/16 at 17:45; Stop 11/01/16 at 17:47; Status DC Famotidine (Pepcid Inj) 20 mg ONCE ONCE IV PUSH Last administered on 18:14; Start 11/01/16 at 18:00; Stop 11/01/16 at 18:01; Status DC Metoclopramide HCl 10 mg 10 mg ONCE ONCE IV PUSH Last administered on 19:39; Start 11/01/16 at 19:30; Stop 11/01/16 at 19:31; Status DC Sodium Chloride (NS 500 ml Inj) 500 ml @ 500 mls/hr BOLUS ONCE IV Last administered on 11/01/16 19:38; Start 11/01/16 at 19:30; Stop 11/01/16 at 20:29 ; Status DC Sodium Chloride (NS Flush) 2 ml UNSCH PRN IV FLUSH FLUSH AFTER USING IV ACCESS ; Start 11/01/16 at 20:00 Sodium Chloride (NS Flush) 2 ml BID IV FLUSH Last administered on 11/01/16 22: 00; Start 11/01/16 at 21:00 Naloxone HCl (Narcan Inj) 0.4 mg UNSCH PRN IV SEE LABEL COMMENTS; Start at 20:00 Sodium Polystyrene Sulfonate (Kayexalate Liq) 30 gm ONCE ONCE PO Last administered on 11/01/16 21:59; Start 11/01/16 at 20:00; Stop 11/01/16 at 21:17 ; Status DC Insulin Human Regular (NovoLIN R INJ) 10 units ONCE ONCE IV PUSH Last administered on 11/01/16 22:05; Start 11/01/16 at 20:00; Stop 11/01/16 at 21:18 ; Status DC Dextrose (D50w (Vial) Inj) 50 ml ONCE ONCE IV PUSH Last administered on 21:59; Start 11/01/16 at 20:00; Stop 11/01/16 at 21:13; Status DC Calcium Gluconate (Calcium Gluconate Inj) 1 gm ONCE ONCE IV PUSH Last administered on 11/01/16 21:59; Start 11/01/16 at 20:00; Stop 11/01/16 at 21:13 ; Status DC Mycophenolate Mofetil (Cellcept) 500 mg BID PO Last administered on 11/02/16 00:06; Start 11/01/16 at 23:45 Tacrolimus (Prograf) 1 mg Q12HR PO Last administered on 11/02/16 00:04; Start 11/01/16 at 23:45 Ondansetron HCl (Zofran Inj) 4 mg Q6HR PRN IV PUSH NAUSEA OR VOMITING Last administered on 11/02/16 00:03; Start 11/01/16 at 23:45 Sodium Polystyrene Sulfonate (Kayexalate Enema) 30 gm ONCE ONCE RECTAL Last administered on 11/02/16 03:33; Start 11/02/16 at 01:45; Stop 11/02/16 at 01:46 ; Status DC Clonidine (Catapres) 0.1 mg DAILY PO ; Start 11/02/16 at 09:00 Docusate Sodium (Colace) 100 mg BID PO ; Start 11/02/16 at 09:00 Fluconazole (Diflucan) 400 mg DAILY PO ; Start 11/02/16 at 09:00 Hydralazine HCl (Apresoline) 25 mg Q8HR PO ; Start 11/02/16 at 06:00 Acetaminophen/ Hydrocodone Bitart ([place] 10-325 Mg) 1 tab TID PRN PO PAIN 1-10 Last administered on 11/02/16 02:47; Start 11/02/16 at 01:45 Isosorbide Mononitrate (Imdur) 30 mg DAILY PO ; Start 11/02/16 at 09:00 Labetalol HCl (Trandate) 100 mg BID PO ; Start 11/02/16 at 09:00 Lorazepam (Ativan) 3 mg HS PO ; Start 11/02/16 at 21:00 Nifedipine (Procardia Xl) 90 mg HS PO ; Start 11/02/16 at 21:00 Prednisone (Deltasone) 5 mg DAILY PO ; Start 11/02/16 at 09:00 Pregabalin (Lyrica) 25 mg TID PO ; Start 11/02/16 at 09:00 Sodium Bicarbonate (Sodium Bicarbonate) 650 mg DAILY PO ; Start 11/02/16 at 09: 00 Tiotropium [place] (Spiriva Inh) 18 mcg DAILY INH ; Start 11/02/16 at 09:00 . Family History Brother and sister with hypoglycemia and diabetes mellitus . Social History Tobacco: quit smoking 14 years ago Alcohol: denies Illicit drugs: denies . Physical Exam Vital Signs Vital Signs Date Time Temp Pulse Resp B/P Pulse Ox O2 Delivery O2 Flow Rate FiO2 11/01/16 20:36 70 16 132/76 100 Room Air 11/01/16 19:30 78 18 142/80 98 Room Air 11/01/16 17:42 98.4 72 20 135/82 100 Room Air 11/01/16 17:37 98 Room Air 11/01/16 17:26 97.7 71 18 139/62 96 Room Air Physical Exam GENERAL: This is a chronically ill-appearing pleasant patient, in no apparent distress. SKIN: No rashes, ecchymoses or lesions. Cool and dry. HEAD: Atraumatic. Normocephalic. EYES: No scleral icterus. No injection or drainage. ENT: Nose without bleeding, purulent drainage. NECK: Trachea midline. No JVD. CARDIOVASCULAR: Regular rate and rhythm without murmurs, gallops, or rubs. Systolic murmur at aortic area. RESPIRATORY: Clear to auscultation. Breath sounds equal bilaterally. No wheezes , rales, or rhonchi. GASTROINTESTINAL: Abdomen soft, non-tender, nondistended. No guarding. MUSCULOSKELETAL: Extremities without clubbing, cyanosis, or edema. No calf tenderness. NEUROLOGICAL: Awake and alert. Motor and sensory grossly within normal limits. Normal speech. . Laboratory Laboratory Tests Test 11/01/16 11/01/16 18:00 19:26 White Blood Count 11.1 Red Blood Count 4.49 Hemoglobin 12.4 Hematocrit 37.2 Mean Corpuscular Volume 82.9 Mean Corpuscular Hemoglobin 27.6 Mean Corpuscular Hemoglobin 33.3 Concent Red Cell Distribution Width 14.8 Platelet Count 282 Mean Platelet Volume 8.5 Neutrophils (%) (Auto) 81.0 Lymphocytes (%) (Auto) 10.7 Monocytes (%) (Auto) 7.5 Eosinophils (%) (Auto) 0.3 Basophils (%) (Auto) 0.5 Neutrophils # (Auto) 9.0 Lymphocytes # (Auto) 1.2 Monocytes # (Auto) 0.8 Eosinophils # (Auto) 0.0 Basophils # (Auto) 0.1 CBC Comment DIFF FINAL Differential Comment Sodium Level 129 Potassium Level 5.6 Chloride Level 95 Carbon Dioxide Level 22.9 Anion Gap 11 Blood Urea Nitrogen 70 Creatinine 3.68 Estimat Glomerular Filtration 17 Rate Random Glucose 269 Calcium Level 10.6 Total Bilirubin 0.7 Aspartate Amino Transf 12 (AST/SGOT) Alanine Aminotransferase 19 (ALT/SGPT) Alkaline Phosphatase 137 Total Creatine Kinase 48 Troponin I 0.02 Total Protein 7.3 Albumin 3.4 Lipase 117 Urine Color YELLOW Urine Turbidity CLEAR Urine pH 6.0 Urine Specific [place] 1.016 Urine Protein TRACE Urine Glucose (UA) NEG Urine Ketones NEG Urine Occult Blood NEG Urine Nitrite NEG Urine Bilirubin NEG Urine Urobilinogen LESS THAN 2.0 Urine Leukocyte Esterase NEG Urine RBC 1 Urine WBC 1 Urine Hyaline Casts 1 Microscopic Urinalysis Comment CULT NOT INDICATED Result Diagram: 11/01/16 1800 11/01/16 1800 Imaging Last Impressions Abdomen/Pelvis CT 11/01/16 1745 Signed Impressions: Service Date/Time: , November 01, 2016 18:25 - CONCLUSION: 1. Moderate amount of stool throughout the colon which could indicate constipation. 2. The [place] kidneys are small and atrophic. 3. Transplant kidney in the right side of the pelvis with simple appearing cyst. Robin Reid MD Assessment and Plan Assessment and Plan Nausea and vomiting r/t constipation - Zofran 4 mg IV q6h PRN n/v - Kayexalate 30 grams OH x 1 dose - monitor for effectiveness Acute on chronic renal failure - BUN 70, creatinine 3.68, estimated GFR 17 - worse than prior labs - Consult nephrology - Received fluid bolus in the ED - Recheck BMP in a.m. and follow trends - Avoid nephrotoxins Severe Aortic Stenosis with cardiomyopathy (EF 35-45% October 2016 echo) - evaluated during prior hospitalization - once clinically stable, plan is for TAVR/AVR - sees Dr. Hall - consult if needed - Continuous cardiac telemetry to monitor for arrhythmias - Strict I&O's every shift Hyperkalemia - Potassium - K+ 5.6 on admission - treated in ED - recheck potassium and treat according to results Recent hospitalization with fungemia - continue home Diflucan - consult ID if needed during hospitalization DVT prophylaxis - Heparin 5000 units q8h subq . Discussed Condition With ER physician, RN, and patient . Physician Certification 2 Midnight Certification Type: Admission for Inpatient Services Order for Inpatient Services The services are ordered in accordance with Medicare regulations or non- Medicare payer requirements, as applicable. In the case of services not specified as inpatient-only, they are appropriately provided as inpatient services in accordance with the 2-midnight benchmark. Estimated LOS (days): 3 days is the estimated time the patient will need to remain in the hospital, assuming treatment plan goals are met and no additional complications. Post-Hospital Plan: Home Jessy Lan Nov 02, 2016 01:15
[2016-11-02] MEDS ORDERED: SODIUM POLYSTYRENE SULFONATE 30 GM/120 ML ENEMA RECTAL ONE (01:45)
[2016-11-02] MEDS ORDERED: ACETAMINOPHEN/HYDROcodone 325 MG/10 MG TAB PO PRN (01:45)
[2016-11-02 02:43] LABS: BICARBONATE 28.3 MEQ/L (21.0-32.0); POTASSIUM 5.1 MEQ/L (3.5-5.1)
--- NOTE | 2016-11-02 05:02 | EKG ---
Date Performed: 11/01/2016 Time Performed: 19:27:04 PTAGE: 66 years EKG: Sinus rhythm MARKED LEFT AXIS DEVIATION LEFT VENTRICULAR HYPERTROPHY AND ST-T CHANGE POSSIBLE ANTERIOR MYOCARDIAL INFARCTION ABNORMAL ECG NO SIGNIFICANT CHANGE FROM PRIOR ELECTROCARDIOGRAM. PREVIOUS TRACING : 10/26/2016 10.28 DOCTOR: Giovanni Carr Interpretating Date/Time 11/02/2016 05:00:28
[2016-11-02] MEDS: HEPARIN SODIUM - SQ 10,000 UNITS/ML VIAL SQ SCH ×3 (06:15→21:22)
[2016-11-02] MEDS: hydrALAZINE HCL 25 MG TAB PO SCH ×3 (06:16→21:23)
[2016-11-02] MEDS: DOCUSATE SODIUM 100 MG CAP PO SCH ×2 (08:45→21:23)
[2016-11-02 08:46] LABS: AUTOMATED NEUTROPHIL # 13.1 TH/MM3 (1.8-7.7); BASOPHIL % 0.2 % (0.0-2.0); EOSINOPHIL % 0.1 % (0.0-4.0); HEMATOCRIT 38.4 % (39.0-51.0); HEMO FLAGS DIFF FINAL; LYMPH % 5.5 % (9.0-44.0); LYMPHOCYTE # 0.8 TH/MM3 (1.0-4.8); MEAN CELL VOLUME 83.2 FL (80.0-100.0); MEAN CORPUSCULAR HEMOGLOBIN 27.5 PG (27.0-34.0); MONO % 5.4 % (0.0-8.0); NEUT % 88.8 % (16.0-70.0); PLATELET COUNT 268 TH/MM3 (150-450); RED BLOOD COUNT 4.61 MIL/MM3 (4.50-5.90); RED CELL DISTRIBUTION WIDTH 15.2 % (11.6-17.2); WHITE BLOOD COUNT 14.8 TH/MM3 (4.0-11.0)
[2016-11-02] MEDS: LABETALOL HCL 100 MG TAB PO SCH ×2 (08:46→21:23)
[2016-11-02] MEDS: ISOSORBIDE MONONITRATE 30 MG TAB PO SCH (08:46)
[2016-11-02] MEDS: SODIUM BICARBONATE 650 MG TAB PO SCH (08:46)
[2016-11-02] MEDS: cloNIDine HCL 0.1 MG TAB PO SCH (08:46)
[2016-11-02] MEDS: predniSONE 5 MG TAB PO SCH (08:46)
[2016-11-02] MEDS: PREGABALIN 25 MG CAP PO SCH ×3 (08:47→18:07)
[2016-11-02] MEDS: SODIUM CHLORIDE 0.9% FLUSH 10 ML FLUSH IV FLUSH SCH ×2 (08:49→21:22)
[2016-11-02] MEDS ORDERED: FLUCONAZOLE 200 MG TAB PO SCH (09:00)
[2016-11-02 09:09] LABS: ANION GAP 10 MEQ/L (5-15); AST (GOT) 11 U/L (15-37); BICARBONATE 25.2 MEQ/L (21.0-32.0); BLOOD UREA NITROGEN 69 MG/DL (7-18); CHLORIDE 99 MEQ/L (98-107); GLOMERULAR FILTRATION RATE 18 ML/MIN (>89); POTASSIUM 4.7 MEQ/L (3.5-5.1); SODIUM (NA) 134 MEQ/L (136-145)
[2016-11-02 09:11] LABS: ALT (GPT) 17 U/L (12-78)
[2016-11-02 09:12] LABS: ALKALINE PHOSPHATASE 118 U/L (45-117); TOTAL BILIRUBIN ADULT 0.9 MG/DL (0.2-1.0)
[2016-11-02] MEDS: TIOTROPIUM BROMIDE 18 MCG INH INH SCH (09:28)
--- NOTE | 2016-11-02 14:12 | HHI.PR ---
Subjective Remarks Follow-up for intractable nausea and vomiting. Patient stated that he feels a lot better after multiple bowel movements. Denying nausea/ vomiting since this morning. He stated that he feels great. Denies any abdominal pain. Patient has no other concerns. Objective Vitals Vital Signs Date Time Temp Pulse Resp B/P Pulse Ox O2 Delivery O2 Flow Rate FiO2 11/02/16 12:00 64 17 171/75 96 11/02/16 08:00 81 16 175/75 95 11/02/16 04:00 98.5 71 20 173/74 94 11/02/16 03:49 18 11/02/16 00:00 98.2 71 20 178/83 95 11/01/16 21:30 98.3 71 20 160/75 97 11/01/16 20:36 70 16 132/76 100 Room Air 11/01/16 19:30 78 18 142/80 98 Room Air 11/01/16 17:42 98.4 72 20 135/82 100 Room Air 11/01/16 17:37 98 Room Air 11/01/16 17:26 97.7 71 18 139/62 96 Room Air I/O 11/01/16 11/01/16 11/01/16 11/02/16 11/02/16 11/02/16 07:00 15:00 23:00 07:00 15:00 23:00 Output Total 4 ml Balance -4 ml Output Stool Total 4 ml # Bowel Movements 4 Result Diagram: 11/02/16 0809 11/02/16 0809 Objective Remarks GENERAL: in NAD CARDIOVASCULAR: Regular rate and rhythm. Systolic heart murmur in aortic area RESPIRATORY: Breath sounds equal bilaterally. No accessory muscle use. GASTROINTESTINAL: Abdomen soft, non-tender, nondistended. MUSCULOSKELETAL: No cyanosis, or edema. BACK: Nontender without obvious deformity. No CVA tenderness. Medications and IVs Current Medications Ondansetron HCl (Zofran Inj) 4 mg ONCE ONCE IVP Last administered on 18:01; Start 11/01/16 at 17:45; Stop 11/01/16 at 17:47; Status DC Pantoprazole Sodium (Protonix Inj) 40 mg ONCE ONCE IVP Last administered on 18:01; Start 11/01/16 at 17:45; Stop 11/01/16 at 17:47; Status DC Sodium Chloride (NS Flush) 2 ml UNSCH PRN IV FLUSH FLUSH AFTER USING IV ACCESS ; Start 11/01/16 at 17:45; Stop 11/01/16 at 21:12; Status DC Morphine Sulfate (Morphine Inj) 2.5 mg ONCE ONCE IV PUSH Last administered on 11/01/16 18:00; Start 11/01/16 at 17:45; Stop 11/01/16 at 17:47; Status DC Al Hydrox/Mg Hydrox/Simethicone (Mag-Al Plus Susp Liq) 30 ml ONCE ONCE PO Last administered on 11/01/16 18:01; Start 11/01/16 at 17:45; Stop 11/01/16 at 17:47; Status DC Lidocaine HCl (Xylocaine 2% Viscous) 15 ml ONCE ONCE PO Last administered on 18:02; Start 11/01/16 at 17:45; Stop 11/01/16 at 17:47; Status DC Famotidine (Pepcid Inj) 20 mg ONCE ONCE IV PUSH Last administered on 18:14; Start 11/01/16 at 18:00; Stop 11/01/16 at 18:01; Status DC Metoclopramide HCl 10 mg 10 mg ONCE ONCE IV PUSH Last administered on 19:39; Start 11/01/16 at 19:30; Stop 11/01/16 at 19:31; Status DC Sodium Chloride (NS 500 ml Inj) 500 ml @ 500 mls/hr BOLUS ONCE IV Last administered on 11/01/16 19:38; Start 11/01/16 at 19:30; Stop 11/01/16 at 20:29 ; Status DC Sodium Chloride (NS Flush) 2 ml UNSCH PRN IV FLUSH FLUSH AFTER USING IV ACCESS ; Start 11/01/16 at 20:00 Sodium Chloride (NS Flush) 2 ml BID IV FLUSH Last administered on 11/02/16 08: 49; Start 11/01/16 at 21:00 Naloxone HCl (Narcan Inj) 0.4 mg UNSCH PRN IV SEE LABEL COMMENTS; Start at 20:00 Sodium Polystyrene Sulfonate (Kayexalate Liq) 30 gm ONCE ONCE PO Last administered on 11/01/16 21:59; Start 11/01/16 at 20:00; Stop 11/01/16 at 21:17 ; Status DC Insulin Human Regular (NovoLIN R INJ) 10 units ONCE ONCE IV PUSH Last administered on 11/01/16 22:05; Start 11/01/16 at 20:00; Stop 11/01/16 at 21:18 ; Status DC Dextrose (D50w (Vial) Inj) 50 ml ONCE ONCE IV PUSH Last administered on 21:59; Start 11/01/16 at 20:00; Stop 11/01/16 at 21:13; Status DC Calcium Gluconate (Calcium Gluconate Inj) 1 gm ONCE ONCE IV PUSH Last administered on 11/01/16 21:59; Start 11/01/16 at 20:00; Stop 11/01/16 at 21:13 ; Status DC Mycophenolate Mofetil (Cellcept) 500 mg BID PO Last administered on 11/02/16 08:47; Start 11/01/16 at 23:45 Tacrolimus (Prograf) 1 mg Q12HR PO Last administered on 11/02/16 08:46; Start 11/01/16 at 23:45 Ondansetron HCl (Zofran Inj) 4 mg Q6HR PRN IV PUSH NAUSEA OR VOMITING Last administered on 11/02/16 00:03; Start 11/01/16 at 23:45 Sodium Polystyrene Sulfonate (Kayexalate Enema) 30 gm ONCE ONCE RECTAL Last administered on 11/02/16 03:33; Start 11/02/16 at 01:45; Stop 11/02/16 at 01:46 ; Status DC Clonidine (Catapres) 0.1 mg DAILY PO Last administered on 11/02/16 08:46; Start 11/02/16 at 09:00 Docusate Sodium (Colace) 100 mg BID PO ; Start 11/02/16 at 09:00 Fluconazole (Diflucan) 400 mg DAILY PO Last administered on 11/02/16 08:47; Start 11/02/16 at 09:00 Hydralazine HCl (Apresoline) 25 mg Q8HR PO Last administered on 11/02/16 06:16 ; Start 11/02/16 at 06:00 Acetaminophen/ Hydrocodone Bitart ([place] 10-325 Mg) 1 tab TID PRN PO PAIN 1-10 Last administered on 11/02/16 02:47; Start 11/02/16 at 01:45 Isosorbide Mononitrate (Imdur) 30 mg DAILY PO Last administered on 11/02/16 08 :46; Start 11/02/16 at 09:00 Labetalol HCl (Trandate) 100 mg BID PO Last administered on 11/02/16 08:46; Start 11/02/16 at 09:00 Lorazepam (Ativan) 3 mg HS PO ; Start 11/02/16 at 21:00 Nifedipine (Procardia Xl) 90 mg HS PO ; Start 11/02/16 at 21:00 Prednisone (Deltasone) 5 mg DAILY PO Last administered on 11/02/16 08:46; Start 11/02/16 at 09:00 Pregabalin (Lyrica) 25 mg TID PO Last administered on 11/02/16 08:47; Start at 09:00 Sodium Bicarbonate (Sodium Bicarbonate) 650 mg DAILY PO Last administered on 08:46; Start 11/02/16 at 09:00 Tiotropium [place] (Spiriva Inh) 18 mcg DAILY INH Last administered on 09:28; Start 11/02/16 at 09:00 Heparin Sodium (Porcine) (Heparin Inj) 5,000 units Q8HR SQ Last administered on 11/02/16 06:15; Start 11/02/16 at 06:00 A/P Assessment and Plan Nausea and vomiting r/t constipation -CT scan showed constipation. -Resolved after multiple bowel movements. Acute on chronic renal failure - BUN 70, creatinine 3.68, estimated GFR 17 - worse than prior labs - Received fluid bolus in the ED - Mild improvement in creatinine. Pending consult from contracting specialist. - Avoid nephrotoxins Severe Aortic Stenosis with cardiomyopathy (EF 35-45% October 2016 echo) - evaluated during prior hospitalization - once clinically stable, plan is for TAVR/AVR - sees Dr. Hall. - Continuous cardiac telemetry to monitor for arrhythmias - Strict I&O's every shift Hyperkalemia - Potassium - K+ 5.6 on admission - Status post given Kayexalate -Potassium is now normal. Recent hospitalization with fungemia - continue home Diflucan DVT prophylaxis - Heparin 5000 units q8h subq Discharge Planning Pending recommendations from contracting specialist. Priscilla Lee MD Nov 02, 2016 14:12
--- NOTE | 2016-11-02 17:42 | PD.CONS ---
HPI Service Nephrology Consult Requested By Dr. Vincent Reason for Consult Kidney transplant Primary Care Physician Kristen Gordon History of Present Illness Patient is 66-year-old white male with history of kidney transplant 2014 who has hepatitis C treatment and has obstructive uropathy with several stents he did recover and she came back recently discharged from the hospital, he has cryptococcal in the blood, patient was however negative and CSF and serum for the antigen, Dr. Centeno advised to take Diflucan, he came back again stating that he was constipated severely backing up the food it and could not eat or drink properly since his discharge everything backed up in his throat and could not swallow, he got dehydrated and was readmitted with higher creatinine 3.68 which slowly declined to 3.4 today, he is on prednisone 5 mg a day and Prograf 1 mg twice a day, the dose was adjusted due to Diflucan. He is off mycophenolate due to sepsis. 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 on October 13 CHF Critical aortic stenosis Dysphagia Constipation GERD Past Surgical History Kidney transplant AV fistula Liver biopsy Left foot surgery Kidney Biopsy Bilateral carotid Right knee arthroscopy Cataracts Dilatation of esophagus Reported Medications Reported Meds & Active Scripts Active Fluconazole 200 Mg Tab 400 Mg PO DAILY Labetalol (Labetalol HCl) 100 Mg Tab 100 Mg PO BID 30 Days Hydralazine HCl 25 Mg Tablet 25 Mg PO Q8HR 30 Days Nifedipine ER (Nifedipine) 90 Mg Tab 90 Mg PO HS 30 Days Furosemide 20 Mg Tab 20 Mg PO BID Tacrolimus 1 Mg Cap 1 Mg PO Q12H 30 Days Sodium Bicarbonate 650 Mg Tab 650 Mg PO DAILY Spiriva Handihaler (Tiotropium Inh) 18 Mcg Cap 18 Mcg INH DAILY 1 capsule = 18 mcg Ventolin Hfa 18 GM Inh (Albuterol Sulfate) 90 Mcg/Act Aer 1 Puff INH Q4H PRN Reported Lantus Inj (Insulin Glargine) 100 Unit/Ml Inj 24 Units SQ NIGHTLY Colace (Docusate Sodium) 100 Mg Capsule 100 Mg PO BID Miralax Powder (Polyethylene Glycol 3350 Powder) 17 Gm Powd 17 Gm PO DAILY Mix and dissolve one measuring cap-ful (17 grams) in water or juice. Feosol (Ferrous Sulfate) 200 Mg Tab 200 Mg PO DAILY Multiple Vitamin 1 Tab 1 Tab PO DAILY Isosorbide Mononitrate ER (Isosorbide Mononitrate) 30 Mg Cherise 30 Mg PO DAILY Novolog Inj (Insulin Aspart) 1,000 Unit/10 Ml Vial 0 SQ ACHS AND 3AM Sliding Scale as directed. Hydrocodone-Acetaminophen 10-325 mg Tab 1 Tab PO TID PRN Ativan (Lorazepam) 1 Mg Tab 3 Mg PO HS Lyrica (Pregabalin) 25 Mg Cap 25 Mg PO TID Linzess (Linaclotide) 290 Mcg Cap 290 Mcg PO DAILY PRN Clonidine (Clonidine HCl) 0.1 Mg Tab 0.1 Mg PO DAILY Prednisone 5 Mg Tab 5 Mg PO DAILY Cellcept (Mycophenolate Mofetil) 500 Mg Tab 500 Mg PO BID Active Ordered Medications Current Medications Medications (Trade) Dose Ordered Sig/Rai Route Start Time Stop Time Status Last Admin (NS Flush) 2 ml UNSCH PRN IV FLUSH 11/01/16 20:00 (NS Flush) 2 ml BID IV FLUSH 11/01/16 21:00 11/02/16 08:49 (Narcan Inj) 0.4 mg UNSCH PRN IV 11/01/16 20:00 (Cellcept) 500 mg BID PO 11/01/16 23:45 11/02/16 08:47 (Prograf) 1 mg Q12HR PO 11/01/16 23:45 11/02/16 08:46 (Zofran Inj) 4 mg Q6HR PRN IV PUSH 11/01/16 23:45 11/02/16 00:03 (Catapres) 0.1 mg DAILY PO 11/02/16 09:00 11/02/16 08:46 (Colace) 100 mg BID PO 11/02/16 09:00 (Apresoline) 25 mg Q8HR PO 11/02/16 06:00 11/02/16 14:18 ([place] 10-325 Mg) 1 tab TID PRN PO 11/02/16 01:45 11/02/16 02:47 (Imdur) 30 mg DAILY PO 11/02/16 09:00 11/02/16 08:46 (Trandate) 100 mg BID PO 11/02/16 09:00 11/02/16 08:46 (Ativan) 3 mg HS PO 11/02/16 21:00 (Procardia Xl) 90 mg HS PO 11/02/16 21:00 (Deltasone) 5 mg DAILY PO 11/02/16 09:00 11/02/16 08:46 (Lyrica) 25 mg TID PO 11/02/16 09:00 11/02/16 14:18 (Sodium Bicarbonate) 650 mg DAILY PO 11/02/16 09:00 11/02/16 08:46 (Spiriva Inh) 18 mcg DAILY INH 11/02/16 09:00 11/02/16 09:28 (Heparin Inj) 5,000 units Q8HR SQ 11/02/16 06:00 11/02/16 14:18 (Diflucan) 200 mg DAILY PO 11/03/16 09:00 Family History Noncontributory Social History Used to smoke Physical Exam Vital Signs Vital Signs Date Time Temp Pulse Resp B/P Pulse Ox O2 Delivery O2 Flow Rate FiO2 11/02/16 16:00 98.3 64 17 176/68 96 11/02/16 12:00 64 17 171/75 96 11/02/16 08:00 81 16 175/75 95 11/02/16 04:00 98.5 71 20 173/74 94 11/02/16 03:49 18 11/02/16 00:00 98.2 71 20 178/83 95 11/01/16 21:30 98.3 71 20 160/75 97 11/01/16 20:36 70 16 132/76 100 Room Air 11/01/16 19:30 78 18 142/80 98 Room Air 11/01/16 17:42 98.4 72 20 135/82 100 Room Air 11/01/16 17:37 98 Room Air Physical Exam GENERAL: Well-nourished, well-developed patient. SKIN: Warm and dry. HEAD: Normocephalic. EYES: No scleral icterus. No injection or drainage. NECK: Supple, trachea midline. No JVD or lymphadenopathy. CARDIOVASCULAR: Regular rate and rhythm without murmurs, gallops, or rubs. RESPIRATORY: Breath sounds equal bilaterally. No accessory muscle use. GASTROINTESTINAL: Abdomen soft, non-tender, nondistended. EXTREMITIES: No cyanosis, or edema. NEUROLOGICAL: Awake, alert, and oriented x 3. Non-focal. Laboratory Laboratory Tests Test 11/01/16 11/01/16 11/02/16 11/02/16 18:00 19:26 01:57 08:09 White Blood Count 11.1 14.8 Red Blood Count 4.49 4.61 Hemoglobin 12.4 12.7 Hematocrit 37.2 38.4 Mean Corpuscular Volume 82.9 83.2 Mean Corpuscular Hemoglobin 27.6 27.5 Mean Corpuscular Hemoglobin 33.3 33.0 Concent Red Cell Distribution Width 14.8 15.2 Platelet Count 282 268 Mean Platelet Volume 8.5 8.3 Neutrophils (%) (Auto) 81.0 88.8 Lymphocytes (%) (Auto) 10.7 5.5 Monocytes (%) (Auto) 7.5 5.4 Eosinophils (%) (Auto) 0.3 0.1 Basophils (%) (Auto) 0.5 0.2 Neutrophils # (Auto) 9.0 13.1 Lymphocytes # (Auto) 1.2 0.8 Monocytes # (Auto) 0.8 0.8 Eosinophils # (Auto) 0.0 0.0 Basophils # (Auto) 0.1 0.0 CBC Comment DIFF FINAL DIFF FINAL Differential Comment Sodium Level 129 137 134 Potassium Level 5.6 5.1 4.7 Chloride Level 95 100 99 Carbon Dioxide Level 22.9 28.3 25.2 Anion Gap 11 9 10 Blood Urea Nitrogen 70 69 69 Creatinine 3.68 3.67 3.48 Estimat Glomerular Filtration 17 17 18 Rate Random Glucose 269 121 146 Calcium Level 10.6 10.3 9.8 Total Bilirubin 0.7 0.9 Aspartate Amino Transf 12 11 (AST/SGOT) Alanine Aminotransferase 19 17 (ALT/SGPT) Alkaline Phosphatase 137 118 Total Creatine Kinase 48 Troponin I 0.02 Total Protein 7.3 6.9 Albumin 3.4 3.2 Lipase 117 Urine Color YELLOW Urine Turbidity CLEAR Urine pH 6.0 Urine Specific [place] 1.016 Urine Protein TRACE Urine Glucose (UA) NEG Urine Ketones NEG Urine Occult Blood NEG Urine Nitrite NEG Urine Bilirubin NEG Urine Urobilinogen LESS THAN 2.0 Urine Leukocyte Esterase NEG Urine RBC 1 Urine WBC 1 Urine Hyaline Casts 1 Microscopic Urinalysis Comment CULT NOT INDICATED Result Diagram: 11/02/16 0809 11/02/16808 Assessment and Plan Problem List: (1) Kidney transplant status, cadaveric Plan: Kidney function continued to improve continue to encourage hydration if creatinine is declining by tomorrow then he can be discharged and follow-up as an outpatient on prednisone 5 mg a day and Prograf 1 mg twice a day (2) Vomiting Plan: Resolved (3) Fungemia Plan: On Diflucan (4) Constipation Plan: He states that resolved after getting an enema Stacy Dias MD Nov 02, 2016 17:42
[2016-11-02] MEDS ORDERED: LORazepam 1 MG TAB PO SCH (21:00)
[2016-11-02] MEDS ORDERED: NIFEdipine 90 MG SUSTAINED RELEASE TAB PO SCH (21:00)
[2016-11-02] MEDS ORDERED: GLUCAGON 1 MG/ML VIAL OTHER PRN (22:15)
[2016-11-02] MEDS: INSULIN ASPART 1,000 UNITS/10 ML VIAL SQ ONE ×2 (22:15→22:31)
[2016-11-02] MEDS ORDERED: DEXTROSE 50% IN WATER 50 ML VIAL(D50) IV PRN (22:15)
[2016-11-03] MEDS: hydrALAZINE HCL 25 MG TAB PO SCH ×2 (05:23→13:30)
[2016-11-03] MEDS: HEPARIN SODIUM - SQ 10,000 UNITS/ML VIAL SQ SCH ×2 (05:23→13:31)
[2016-11-03] MEDS: INSULIN ASPART SUPPLEMENTAL SCALE SQ SCH ×2 (05:29→11:59)
[2016-11-03 05:30] VITALS: BP 157/63; PULSE 63; RESP 18; TEMP 96.7; O2SAT 95
[2016-11-03 07:38] VITALS: BP 151/68; PULSE 67; RESP 20; TEMP 97.1; O2SAT 96
[2016-11-03 07:51] LABS: BICARBONATE 25.9 MEQ/L (21.0-32.0); POTASSIUM 4.1 MEQ/L (3.5-5.1)
[2016-11-03] MEDS: DOCUSATE SODIUM 100 MG CAP PO SCH (07:58)
[2016-11-03] MEDS: MYCOPHENOLATE MOFETIL 500 MG TAB PO SCH (07:58)
[2016-11-03] MEDS: PREGABALIN 25 MG CAP PO SCH ×2 (07:59→13:30)
[2016-11-03] MEDS: TACROLIMUS 1 MG CAP PO SCH (07:59)
[2016-11-03] MEDS: cloNIDine HCL 0.1 MG TAB PO SCH (07:59)
[2016-11-03] MEDS: SODIUM BICARBONATE 650 MG TAB PO SCH (07:59)
[2016-11-03] MEDS: LABETALOL HCL 100 MG TAB PO SCH (07:59)
[2016-11-03] MEDS: ISOSORBIDE MONONITRATE 30 MG TAB PO SCH (07:59)
[2016-11-03] MEDS: SODIUM CHLORIDE 0.9% FLUSH 10 ML FLUSH IV FLUSH SCH (08:00)
[2016-11-03] MEDS: predniSONE 5 MG TAB PO SCH (08:00)
[2016-11-03] MEDS: TIOTROPIUM BROMIDE 18 MCG INH INH SCH (08:00)
[2016-11-03] MEDS ORDERED: FLUCONAZOLE 200 MG TAB PO SCH (09:00)
[2016-11-03 11:48] VITALS: BP 117/58; PULSE 59; RESP 20; TEMP 97.4; O2SAT 94
[2016-11-03 12:23] LABS: AUTOMATED NEUTROPHIL # 6.8 TH/MM3 (1.8-7.7); BASOPHIL % 0.4 % (0.0-2.0); EOSINOPHIL % 0.3 % (0.0-4.0); HEMO FLAGS DIFF FINAL; LYMPH % 8.9 % (9.0-44.0); LYMPHOCYTE # 0.7 TH/MM3 (1.0-4.8); MEAN CELL VOLUME 83.7 FL (80.0-100.0); MEAN CORPUSCULAR HEMOGLOBIN 27.7 PG (27.0-34.0); MEAN CORPUSCULAR HGB CONC 33.1 % (32.0-36.0); MONO % 6.1 % (0.0-8.0); NEUT % 84.3 % (16.0-70.0); PLATELET COUNT 233 TH/MM3 (150-450); RED CELL DISTRIBUTION WIDTH 15.3 % (11.6-17.2)
--- NOTE | 2016-11-03 15:56 | HHI.PR ---
Subjective Remarks Patient doing well no nausea or vomiting, no abdominal pain Seen by levi maker plan to discharge if creatinine trending down Objective Vitals Vital Signs Date Time Temp Pulse Resp B/P Pulse Ox O2 Delivery O2 Flow Rate FiO2 11/03/16 11:48 97.4 59 20 117/58 94 11/03/16 07:38 97.1 67 20 151/68 96 11/03/16 05:30 96.7 63 18 157/63 95 11/02/16 22:00 148/64 11/02/16 21:00 67 11/02/16 20:00 97.5 67 18 187/78 95 11/02/16 16:00 98.3 64 17 176/68 96 I/O 11/02/16 11/02/16 11/02/16 11/03/16 11/03/16 11/03/16 07:00 15:00 23:00 07:00 15:00 23:00 Intake Total 480 ml 240 ml 120 ml 240 ml Output Total 4 ml 350 ml 450 ml 600 ml Balance -4 ml 480 ml -110 ml -330 ml -360 ml Intake Oral 480 ml 240 ml 120 ml 240 ml Output Urine Total 350 ml 450 ml 600 ml Stool Total 4 ml # Voids 2 # Bowel Movements 4 1 Result Diagram: 11/03/16 1154 11/03/16 0601 Objective Remarks GENERAL: This is a well-nourished, well-developed patient, in no apparent distress. SKIN: No rashes, warm and dry HEAD: Atraumatic. Normocephalic. EYES: Pupils equal round and reactive. Extraocular motions intact. No scleral icterus. ENT: Nose without bleeding, or drainage, Airway patent. NECK: Trachea midline. Supple CARDIOVASCULAR: Regular rate and rhythm without murmurs, gallops, or rubs. RESPIRATORY: Fair air entry bilaterally. No wheezes, rales, or rhonchi. GASTROINTESTINAL: Abdomen soft, non-tender, nondistended. Positive bowel sounds MUSCULOSKELETAL: Extremities without clubbing, cyanosis, or edema. Pedal pulses appreciated NEUROLOGICAL: Awake and alert. Moves all extremity. Normal speech.no focal neurological deficit A/P Assessment and Plan Nausea and vomiting r/t constipation -CT scan showed constipation. -Resolved after multiple bowel movements. Acute on chronic renal failure - BUN 70, creatinine 3.68, estimated GFR 17 - worse than prior labs - Received fluid bolus in the ED - Mild improvement in creatinine. - Avoid nephrotoxins -Appreciate nephrology consultation recommending discharge and follow up as an outpatient if creatinine increased today, creatinine is 3.26 today Severe Aortic Stenosis with cardiomyopathy (EF 35-45% October 2016 echo) - evaluated during prior hospitalization - once clinically stable, plan is for TAVR/AVR - sees Dr. Hall. - Continuous cardiac telemetry to monitor for arrhythmias - Strict I&O's every shift Hyperkalemia - Potassium - K+ 5.6 on admission - Status post given Kayexalate -Potassium is now normal. Recent hospitalization with fungemia - continue home Diflucan DVT prophylaxis - Heparin 5000 units q8h subq Discharge Planning Discharge patient to home Condition on discharge: Improved Renal Diet as tolerated Ad Tisha activity Rx written: See med rec Follow-up with primary care physician in one week, nephrology as directed Aaron Arana MD Nov 03, 2016 15:56
--- NOTE | 2016-11-04 10:00 | HHI.DS ---
Discharge Summary Admission Date Nov 01, 2016 at 19:37 Discharge Date: Nov 03, 2016 Admitting Diagnosis intractable nausea and vomiting, renal insufficiency, hyperkalemia (1) Kidney transplant status, cadaveric ICD Code: Z94.0 (2) DM (diabetes mellitus) ICD Code: E11.9 (3) Diastolic heart failure ICD Code: I50.30 (4) Vomiting ICD Code: R11.10 (5) Hyperkalemia ICD Code: E87.5 (6) Fungemia ICD Code: B49 (7) FRANTZ (acute kidney injury) ICD Code: N17.9 Procedures See below Brief History - From Admission Written by Jessy Lan, acting as scribe for Dr. Vincent on 11/02/16 at 01:19. Constipated; states he did not have a bm during his last hospitalization; States he had acid reflux symptoms secondary to stool getting backed up; nausea with bilious vomit; epigastric discomfort with dyspepsia when he tried to eat and vomiting felt like it burned all the way back up. He reports oliguria but denies dysuria; denies fever. Sees Dr. Jj in [facility] for GI. Was supposed to have a routine follow up with him tomorrow. CBC/BMP: 11/03/16 1154 11/03/16 0601 Significant Findings Laboratory Tests Test 11/01/16 11/02/16 11/02/16 11/03/16 18:00 01:57 08:09 06:01 White Blood Count 11.1 TH/MM3 14.8 TH/MM3 (4.0-11.0) (4.0-11.0) Red Blood Count 4.49 MIL/MM3 (4.50-5.90) Hemoglobin 12.4 GM/DL 12.7 GM/DL (13.0-17.0) (13.0-17.0) Hematocrit 37.2 % 38.4 % (39.0-51.0) (39.0-51.0) Neutrophils (%) (Auto) 81.0 % 88.8 % (16.0-70.0) (16.0-70.0) Neutrophils # (Auto) 9.0 TH/MM3 13.1 TH/MM3 (1.8-7.7) (1.8-7.7) Sodium Level 129 MEQ/L 134 MEQ/L (136-145) (136-145) Potassium Level 5.6 MEQ/L (3.5-5.1) Chloride Level 95 MEQ/L (98-107) Blood Urea Nitrogen 70 MG/DL (7-18) 69 MG/DL (7-18) 69 MG/DL (7-18) 64 MG/DL (7- 18) Creatinine 3.68 MG/DL 3.67 MG/DL 3.48 MG/DL 3.26 MG/DL (0.60-1.30) (0.60-1.30) (0.60-1.30) (0.60-1.30) Estimat Glomerular Filtration 17 ML/MIN (>89) 17 ML/MIN (>89) 18 ML/MIN (>89) 19 ML/MIN (>89) Rate Random Glucose 269 MG/DL 121 MG/DL 146 MG/DL 156 MG/DL (74-106) (74-106) (74-106) (74-106) Calcium Level 10.6 MG/DL 10.3 MG/DL (8.5-10.1) (8.5-10.1) Aspartate Amino Transf 12 U/L (15-37) 11 U/L (15-37) (AST/SGOT) Alkaline Phosphatase 137 U/L 118 U/L (45-117) (45-117) Lymphocytes (%) (Auto) 5.5 % (9.0-44.0) Lymphocytes # (Auto) 0.8 TH/MM3 (1.0-4.8) Albumin 3.2 GM/DL (3.4-5.0) Test 11/03/16 11:54 Red Blood Count 4.30 MIL/MM3 (4.50-5.90) Hemoglobin 11.9 GM/DL (13.0-17.0) Hematocrit 36.0 % (39.0-51.0) Neutrophils (%) (Auto) 84.3 % (16.0-70.0) Lymphocytes (%) (Auto) 8.9 % (9.0-44.0) Lymphocytes # (Auto) 0.7 TH/MM3 (1.0-4.8) PE at Discharge GENERAL: This is a well-nourished, well-developed patient, in no apparent distress. SKIN: No rashes, warm and dry HEAD: Atraumatic. Normocephalic. EYES: Pupils equal round and reactive. Extraocular motions intact. No scleral icterus. ENT: Nose without bleeding, or drainage, Airway patent. NECK: Trachea midline. Supple CARDIOVASCULAR: Regular rate and rhythm without murmurs, gallops, or rubs. RESPIRATORY: Fair air entry bilaterally. No wheezes, rales, or rhonchi. GASTROINTESTINAL: Abdomen soft, non-tender, nondistended. Positive bowel sounds MUSCULOSKELETAL: Extremities without clubbing, cyanosis, or edema. Pedal pulses appreciated NEUROLOGICAL: Awake and alert. Moves all extremity. Normal speech.no focal neurological deficit Hospital Course 66 years old male admitted for Nausea and vomiting r/t constipation CT scan showed constipation. Resolved after multiple bowel movements. Patient also had Acute on chronic renal failure BUN 70, creatinine 3.68, estimated GFR 17 - worse than prior labs Received fluid bolus in the ED Mild improvement in creatinine. Avoid nephrotoxins Appreciate nephrology consultation recommending discharge and follow up as an outpatient if creatinine increased today, creatinine is 3.26 today Re: Severe Aortic Stenosis with cardiomyopathy (EF 35-45% October 2016 echo) evaluated during prior hospitalization - once clinically stable, plan is for TAVR/AVR Patient sees Dr. Hall. Continuous cardiac telemetry to monitor for arrhythmias Strict I&O's every shift During hospital course patient had Hyperkalemia,K+ 5.6 on admission,given Kayexalate Potassium normalized Per the record patient had fungemia during Recent hospitalization continue home Diflucan On day of discharge with repeated CBC due to increase in WBC the day before to 14 K, from 11.1, result was back to normal [id number] encounter performed with the patient on discharge day, as well as physical exam, summary of hospitalization course and postdischarge plan has been D/W the patient. D/W nurse Discharge medications reviewed and printed and signed, post discharge follow up visit with PCP and and with yardmaster, BMP was ordered in a week prior to see yardmaster, Brief hospital course and discharge summary has been placed. Pt Condition on Discharge: Stable Discharge Disposition: Discharge Home Discharge Time: > 30 minutes Discharge Instructions DIET: Follow Instructions for: Renal Failure Diet Activities you can perform: Weight Bearing as [place] Follow up Referrals: Nephrology - 1 Week with Stacy Dias MD New Orders: BASIC METABOLIC PROF - 1 Week Continued Medications: Albuterol 18 GM Inh (Ventolin Hfa 18 GM Inh) 90 Mcg/Act Aer 1 PUFF INH Q4H PRN SHORTNESS OF BREATH #1 Ref 0 INHALER Clonidine (Clonidine) 0.1 Mg Tab 0.1 MG PO DAILY Blood Pressure Management Ref 0 TAB Docusate Sodium (Colace) 100 Mg Capsule 100 MG PO BID Constipation Fluconazole (Fluconazole) 200 Mg Tab 400 MG PO DAILY Infection #30 Ref 5 TAB Hydralazine HCl (Hydralazine HCl) 25 Mg Tablet 25 MG PO Q8HR heart Days 30 TAB Insulin Aspart Inj (Novolog Inj) 1,000 Unit/10 Ml Vial 0 SQ ACHS AND 3AM Sliding Scale as directed. Blood Sugar Management #10 Ref 0 ML Insulin Glargine Inj (Lantus Inj) 100 Unit/Ml Inj 24 UNITS SQ nightly Isosorbide Mononitrate ER (Isosorbide Mononitrate ER) 30 Mg Cherise 30 MG PO DAILY Prevent Chest Pain #30 Ref 0 TAB Labetalol (Labetalol) 100 Mg Tab 100 MG PO BID heart Days 30 TAB Linaclotide (Linzess) 290 Mcg Cap 290 MCG PO DAILY PRN CONSTIPATION Ref 0 CAP Lorazepam (Ativan) 1 Mg Tab 3 MG PO HS Insomnia Ref 0 TAB Mycophenolate (Cellcept) 500 Mg Tab 500 MG PO BID Immunosuppression Ref 0 TAB Nifedipine (Nifedipine ER) 90 Mg Tab 90 MG PO HS heart Days 30 TAB Prednisone (Prednisone) 5 Mg Tab 5 MG PO DAILY Ref 0 TAB Pregabalin (Lyrica) 25 Mg Cap 25 MG PO TID Ref 0 CAP Sodium Bicarbonate (Sodium Bicarbonate) 650 Mg Tab 650 MG PO DAILY low bicarb #60 Ref 0 TAB Tacrolimus (Tacrolimus) 1 Mg Cap 1 MG PO Q12H Prevent Transplant Reject Days 30 Ref 0 CAP Tiotropium Inh (Spiriva [place]) 18 Mcg Cap 18 MCG INH DAILY 1 capsule = 18 mcg COPD #30 Ref 0 CAP Aaron Arana MD Nov 04, 2016 10:00
== END 2016-11-03 15:25 | disposition home or self-care (01) | DRG 683 ==
LOC: NEPE 17:23 → NEDA 19:37 → N05A 21:33
PROVIDERS: ADMIT Family Medicine; ATTEND Hospitalist
DX: N17.9 Acute kidney failure, unspecified (principal); B45.7 Disseminated cryptococcosis; I42.9 Cardiomyopathy, unspecified; I13.0 Hypertensive heart and chronic kidney disease with heart failure and stage 1 through stage 4 chronic kidney disease, or unspecified chronic kidney disease; R11.2 Nausea with vomiting, unspecified; K59.00 Constipation, unspecified; I50.30 Unspecified diastolic (congestive) heart failure; E87.1 Hypo-osmolality and hyponatremia; Z94.0 Kidney transplant status; E87.5 Hyperkalemia; I35.0 Nonrheumatic aortic (valve) stenosis; E86.0 Dehydration; E11.22 Type 2 diabetes mellitus with diabetic chronic kidney disease; J44.9 Chronic obstructive pulmonary disease, unspecified; N18.9 Chronic kidney disease, unspecified; K21.9 Gastro-esophageal reflux disease without esophagitis; E78.5 Hyperlipidemia, unspecified; I73.9 Peripheral vascular disease, unspecified; Z87.891 Personal history of nicotine dependence; Z79.4 Long term (current) use of insulin
CPT/HCPCS: 74176; 80048; 80053; 81001; 82550; 82948; 83690; 84484; 85025; 93005; 96361; 96374; 96375; C9113; J0610; J1644; J1815; J2270; J2405; J2765; J7040; J7507; J7512; J7517

== ENCOUNTER 2016-11-04 12:21 | Inpatient (IN) | payer MEDICARE, OTHER ==
[~2016-11-04] VITALS: Ht 186.7 cm; Wt 80.9 kg
[~2016-11-04 12:21] MED LIST changes: -COLA100C3 PO
[2016-11-04 12:24] VITALS: BP 140/64; PULSE 82; RESP 24; TEMP 99.7; O2SAT 93
[2016-11-04] MEDS ORDERED: ONDANSETRON HCL 4 MG/2 ML VIAL IVP ONE (13:00)
[2016-11-04 13:19] VITALS: BP 145/67; PULSE 77; RESP 20; TEMP 99.9; O2SAT 98
[2016-11-04 13:34] LABS: AUTOMATED NEUTROPHIL # 13.9 TH/MM3 (1.8-7.7); BASOPHIL # 0.1 TH/MM3 (0-0.2); BASOPHIL % 0.5 % (0.0-2.0); EOSINOPHIL % 0.3 % (0.0-4.0); HEMO FLAGS DIFF FINAL; LYMPH % 5.3 % (9.0-44.0); LYMPHOCYTE # 0.8 TH/MM3 (1.0-4.8); MEAN CELL VOLUME 82.6 FL (80.0-100.0); MEAN CORPUSCULAR HEMOGLOBIN 27.5 PG (27.0-34.0); MEAN CORPUSCULAR HGB CONC 33.3 % (32.0-36.0); MONO % 5.9 % (0.0-8.0); PLATELET COUNT 231 TH/MM3 (150-450); RED BLOOD COUNT 4.36 MIL/MM3 (4.50-5.90); RED CELL DISTRIBUTION WIDTH 15.3 % (11.6-17.2); WHITE BLOOD COUNT 15.8 TH/MM3 (4.0-11.0)
[2016-11-04 13:36] LABS: BLOOD, URINE NEG (NEG); GLUCOSE,URINE NEG (NEG); HYALINE CAST, URINE 1 /lpf (RARE); KETONE, URINE NEG (NEG); NITRITE,URINE NEG (NEG); PH, URINE 5.5 (5.0-8.5); SQUAMOUS EPITHELIAL CELL URINE <1 /hpf (0-5); TRANSITIONAL EPI CELLS, URINE <1 /hpf; URINE COLOR YELLOW (YELLW/STRAW)
[2016-11-04 13:37] LABS: COMMENT (UR) CULT NOT INDICATED; CULTURE IF INDICATED CULT NOT INDICATED
[2016-11-04] MEDS ORDERED: MORPHINE SULFATE 4 MG/ML INJ IV PUSH ONE (13:45)
[2016-11-04] MEDS: SODIUM CHLORIDE 0.9% FLUSH 10 ML FLUSH IV FLUSH PRN ×2 (13:50→18:01)
[2016-11-04 13:54] LABS: ALT (GPT) 21 U/L (12-78); ANION GAP 12 MEQ/L (5-15); AST (GOT) 16 U/L (15-37); BICARBONATE 22.9 MEQ/L (21.0-32.0); BLOOD UREA NITROGEN 70 MG/DL (7-18); CHLORIDE 96 MEQ/L (98-107); GLOMERULAR FILTRATION RATE 17 ML/MIN (>89); POTASSIUM 4.8 MEQ/L (3.5-5.1); SODIUM (NA) 131 MEQ/L (136-145)
[2016-11-04 13:56] LABS: ALKALINE PHOSPHATASE 135 U/L (45-117); TOTAL BILIRUBIN ADULT 0.9 MG/DL (0.2-1.0)
--- NOTE | 2016-11-04 16:14 | PD ---
HPI Chief Complaint: Abdominal Pain Time Seen by Provider: 12:34 Travel History International Travel<30 days: No Contact w/Intl Traveler<30days: No Traveled to known affect area: No History of Present Illness HPI This is a 66-year-old male who presents to the emergency department with abdominal discomfort. Patient was just admitted to the hospital for a prolonged stay in the setting of congestive heart failure. He return to the hospital and was discharged yesterday in the setting of abdominal discomfort. He was thought to be constipated and had an enema and his last bowel movement was the day that he left the hospital. He says the afternoon he left the hospital he was feeling well but overnight he started to develop severe abdominal pain in the mid abdomen, constant, nonradiating, associated with 10 episodes of vomiting. He's had fever at home. He hasn't had a bowel movement and he hasn't passed any gas. He denies any dysuria or hematuria. PFSH Past Medical History Hx Anticoagulant Therapy: No Arthritis: No Asthma: No Autoimmune Disease: No Blood Disorders: No Anxiety: No Depression: No Heart Rhythm Problems: No Cancer: No (kidney failure and new transplant in right anterior) Cardiac Catheterization: Yes Cardiovascular Problems: Yes High Cholesterol: No Chemotherapy: No Chest Pain: Yes Congestive Heart Failure: Yes (Hx of congestive heart failure.) COPD: No Cerebrovascular Accident: No Diabetes: Yes Patient Takes Glucophage: No Dialysis: Yes (M-W-F) Diminished Hearing: No Endocrine: No GERD: Yes Genitourinary: No Headaches: Yes (headaches post dialysis and spinal tap) Hepatitis: Yes (C CLEARED ) Hiatal Hernia: No Hypertension: Yes Immune Disorder: No Kidney Stones: No Musculoskeletal: Yes (disk bulges and hernias in spine) Neurologic: Yes (back pain) Psychiatric: No Reproductive: No Respiratory: Yes Immunizations Current: Yes Migraines: No Radiation Therapy: No Renal Failure: Yes Seizures: No Sickle Cell Disease: No Sleep Apnea: No Thyroid Disease: No Ulcer: No Tetanus Vaccination: < 5 Years Influenza Vaccination: Yes Past Surgical History Abdominal Surgery: No AICD: No Arteriovenous Shunt: Yes (L AV FISTULA) Body Medical Devices: right abdomen third kidney from transplant Cardiac Surgery: Yes (BILAT CAROTIDS) Ear Surgery: No Endocrine Surgery: No Eye Surgery: Yes (retinopathy) Genitourinary Surgery: Yes (RIGHT RENAL TRANSPLANT, (R) NEPHROS./ URETERAL STENTS (MULTI)) Gynecologic Surgery: No Insulin Pump: No Joint Replacement: No Oral Surgery: No Pacemaker: No Thoracic Surgery: No Other Surgery: Yes (left foot surgery, and toe nails removed) Social History Alcohol Use: No Tobacco Use: No Substance Use: No Allergies-Medications (Allergen,Severity, Reaction): Coded Allergies: No Known Allergies (Unverified , 11/04/16) Reported Meds & Prescriptions Reported Meds & Active Scripts Active Fluconazole 200 Mg Tab 400 Mg PO DAILY Labetalol (Labetalol HCl) 100 Mg Tab 100 Mg PO BID 30 Days Hydralazine HCl 25 Mg Tablet 25 Mg PO Q8HR 30 Days Nifedipine ER (Nifedipine) 90 Mg Tab 90 Mg PO HS 30 Days Furosemide 20 Mg Tab 20 Mg PO BID Tacrolimus 1 Mg Cap 1 Mg PO Q12H 30 Days Sodium Bicarbonate 650 Mg Tab 650 Mg PO DAILY Spiriva Handihaler (Tiotropium Inh) 18 Mcg Cap 18 Mcg INH DAILY 1 capsule = 18 mcg Ventolin Hfa 18 GM Inh (Albuterol Sulfate) 90 Mcg/Act Aer 1 Puff INH Q4H PRN Reported Lantus Inj (Insulin Glargine) 100 Unit/Ml Inj 18 Units SQ NIGHTLY Colace (Docusate Sodium) 100 Mg Capsule 100 Mg PO BID Miralax Powder (Polyethylene Glycol 3350 Powder) 17 Gm Powd 17 Gm PO DAILY Mix and dissolve one measuring cap-ful (17 grams) in water or juice. Feosol (Ferrous Sulfate) 200 Mg Tab 200 Mg PO DAILY Multiple Vitamin 1 Tab 1 Tab PO DAILY Isosorbide Mononitrate ER (Isosorbide Mononitrate) 30 Mg Cherise 30 Mg PO DAILY Novolog Inj (Insulin Aspart) 1,000 Unit/10 Ml Vial 0 SQ ACHS AND 3AM Sliding Scale as directed. Hydrocodone-Acetaminophen 10-325 mg Tab 1 Tab PO TID PRN Ativan (Lorazepam) 1 Mg Tab 3 Mg PO HS Lyrica (Pregabalin) 25 Mg Cap 25 Mg PO TID Linzess (Linaclotide) 290 Mcg Cap 290 Mcg PO DAILY PRN Clonidine (Clonidine HCl) 0.1 Mg Tab 0.1 Mg PO DAILY Prednisone 5 Mg Tab 5 Mg PO DAILY Cellcept (Mycophenolate Mofetil) 500 Mg Tab 500 Mg PO BID Review of Systems Except as stated in HPI: all other systems reviewed are Neg Physical Exam Narrative GENERAL: Chronically ill-appearing. SKIN: Dry with skin tenting. HEAD: Atraumatic. Normocephalic. EYES: Pupils equal and round. No injection or drainage. ENT: Moist mucous membranes NECK: Trachea midline. CARDIOVASCULAR: Regular rate and rhythm. No murmur appreciated. RESPIRATORY: Clear to auscultation. Breath sounds equal bilaterally. GASTROINTESTINAL: Bowel sounds present in all 4 quadrants. Tender to palpation diffusely with no rebound or guarding. MUSCULOSKELETAL: No obvious deformities. NEUROLOGICAL: Awake and alert. No obvious cranial nerve deficits. Moving all extremities. PSYCHIATRIC: Appropriate mood and affect; insight and judgment normal. Data Data Last Documented VS Vital Signs Date Time Temp Pulse Resp B/P Pulse Ox O2 Delivery O2 Flow Rate FiO2 11/04/16 16:59 74 17 130/92 98 Room Air 11/04/16 13:19 99.9 3 Orders Complete Blood Count With Diff (11/04/16 12:48) Comprehensive Metabolic Panel (11/04/16 12:48) Lipase (11/04/16 12:48) Urinalysis - C+S If Indicated (11/04/16 12:48) Ct Abd/Pel W/O Iv Contrast (11/04/16 12:48) Iv Access Insert/Monitor (11/04/16 12:48) Ecg Monitoring (11/04/16 12:48) Oximetry (11/04/16 12:48) Ondansetron Inj (Zofran Inj) (11/04/16 13:00) Sodium Chloride 0.9% Flush (Ns Flush) (11/04/16 13:00) Morphine Inj (Morphine Inj) (11/04/16 13:45) Blood Culture (11/04/16 13:49) Lactic Acid (11/04/16 13:49) Chest, Single Ap (11/04/16 ) Cefepime Inj (Maxipime Inj) (11/04/16 17:45) Azithromycin Inj (Zithromax Inj) (11/04/16 17:45) Admit Order (Ed Use Only) (11/04/16 17:51) Labs Laboratory Tests Test 11/04/16 11/04/16 13:15 14:05 White Blood Count 15.8 TH/MM3 Red Blood Count 4.36 MIL/MM3 Hemoglobin 12.0 GM/DL Hematocrit 36.0 % Mean Corpuscular Volume 82.6 FL Mean Corpuscular Hemoglobin 27.5 PG Mean Corpuscular Hemoglobin 33.3 % Concent Red Cell Distribution Width 15.3 % Platelet Count 231 TH/MM3 Mean Platelet Volume 8.6 FL Neutrophils (%) (Auto) 88.0 % Lymphocytes (%) (Auto) 5.3 % Monocytes (%) (Auto) 5.9 % Eosinophils (%) (Auto) 0.3 % Basophils (%) (Auto) 0.5 % Neutrophils # (Auto) 13.9 TH/MM3 Lymphocytes # (Auto) 0.8 TH/MM3 Monocytes # (Auto) 0.9 TH/MM3 Eosinophils # (Auto) 0.0 TH/MM3 Basophils # (Auto) 0.1 TH/MM3 CBC Comment DIFF FINAL Differential Comment Urine Color YELLOW Urine Turbidity CLEAR Urine pH 5.5 Urine Specific [place] 1.017 Urine Protein TRACE mg/dL Urine Glucose (UA) NEG mg/dL Urine Ketones NEG mg/dL Urine Occult Blood NEG Urine Nitrite NEG Urine Bilirubin NEG Urine Urobilinogen LESS THAN 2.0 MG/DL Urine Leukocyte Esterase NEG Urine RBC 1 /hpf Urine WBC 1 /hpf Urine Squamous Epithelial <1 /hpf Cells Urine Transitional Epithelial <1 /hpf Cells Urine Hyaline Casts 1 /lpf Microscopic Urinalysis Comment CULT NOT INDICATED Sodium Level 131 MEQ/L Potassium Level 4.8 MEQ/L Chloride Level 96 MEQ/L Carbon Dioxide Level 22.9 MEQ/L Anion Gap 12 MEQ/L Blood Urea Nitrogen 70 MG/DL Creatinine 3.62 MG/DL Estimat Glomerular Filtration 17 ML/MIN Rate Random Glucose 227 MG/DL Calcium Level 9.7 MG/DL Total Bilirubin 0.9 MG/DL Aspartate Amino Transf 16 U/L (AST/SGOT) Alanine Aminotransferase 21 U/L (ALT/SGPT) Alkaline Phosphatase 135 U/L Total Protein 7.5 GM/DL Albumin 3.5 GM/DL Lipase 76 U/L Lactic Acid Level 1.1 mmol/L [facility] Medical Decision Making Medical Screen Exam Complete: Yes Emergency Medical Condition: Yes Medical Record Reviewed: Yes (patient was admitted in October and the setting of fungemia and congestive heart failure) Interpretation(s) Leukocytosis 88% neutrophils Mild hyponatremia BUN and creatinine are at baseline Lactic acid is 1.1 Lipase is 76 Urinalysis: No infection Differential Diagnosis Cholelithiasis, cholecystitis: Colitis, gastroenteritis, small bowel obstruction Narrative Course 66-year-old male who presents to the emergency department with abdominal discomfort, vomiting and fever. Labs were obtained which demonstrated a leukocytosis of 15. CT was obtained demonstrating a right lower lobe pneumonia. Given the patient's multiple comorbidities I think he requires admission. Cultures were obtained. He was given cefepime and azithromycin. I avoided IV hydration given his recent admission for volume overload. Physician Communication Physician Communication Discussed with Dr. Mccullough Diagnosis Primary Impression: Pneumonia Qualified Code: J18.9 - Pneumonia of right lung due to infectious organism, unspecified part of lung Admitting Information Admitting Physician Requests: Admit Aisha Flores MD Nov 04, 2016 16:14
[2016-11-04 16:59] VITALS: BP 130/92; PULSE 74; RESP 17; O2SAT 98
--- NOTE | 2016-11-04 17:22 | RADRPT ---
EXAM DATE/TIME: 11/04/2016 17:09 [facility] COMPARISON: CHEST SINGLE AP, October 26, 2016, 10:09. INDICATIONS : Chest pain with shortness of breath. MEDICAL HISTORY : Chronic obstructive pulmonary disease. Congestive heart failure. Diabetes mellitus type II. Hyper tension SURGICAL HISTORY : Right renal transplant Right uretheral stent ENCOUNTER: Initial ACUITY: 1 day PAIN SCORE: 6/10 LOCATION: Bilateral chest FINDINGS: The heart size is borderline enlarged. There is increased focal density in the right lung base. No ot her focal consolidation is seen. No effusion is seen. CONCLUSION: Right base consolidation. Derrek Lopez MD on November 04, 2016 at 17:18 Board Certified Radiologist. This report was verified electronically.
--- NOTE | 2016-11-04 17:33 | RADRPT ---
EXAM DATE/TIME: 11/04/2016 14:45 [facility] COMPARISON: CT ABDOMEN & PELVIS W/O CONTRAST, November 01, 2016, 18:25. INDICATIONS : Abdomen pain. ORAL CONTRAST: No oral contrast ingested. RADIATION DOSE: 10.25 CTDIvol (mGy) MEDICAL HISTORY : Cardiovascular disease. Hypertension. SURGICAL HISTORY : Kidney transplant. ENCOUNTER: Initial ACUITY: 2 days PAIN SCALE: 5/10 LOCATION: Bilateral abdomen. TECHNIQUE: Volumetric scanning of the abdomen and pelvis was performed. Using automated exposure control and ad justment of the mA and/or kV according to patient size, radiation dose was kept as low as reasonably achievable to obtain optimal diagnostic quality images. DICOM format image data is available electro nically for review and comparison. FINDINGS: The liver, spleen and adrenal glands are normal. There is atrophy of the [place] kidneys. There is a transplant kidney in the right pelvis. There is a 2.9 cm cystic area seen at the inferior aspect of the transplanted kidney. No hydronephrosis is seen at that transplanted kidney. There is fatty atr ophy of the pancreas. Significant inflammatory change around the pancreas is not seen. There is thickening of the distal esophagus. The stomach is distended. The small and large bowel ar e not distended. The structures within the pelvis appear grossly normal. Atherosclerotic calcificat ions are seen throughout. There is a large area of consolidation seen at the right hilar and infrahilar region and extending in to the right lower lobe and right middle lobe. This is new when compared to the prior exam. CONCLUSION: 1. New large consolidation seen at the right hilar and infrahilar region. 2. Mild thickening of the distal esophagus. This is nonspecific. 3. Distention of the stomach. 4. Transplanted kidney in the right lower quadrant. There is a 2.9 cm cyst at the inferior transplan [place]ris kidney. 5. Very extensive atherosclerotic calcifications seen throughout the arterial system. Derrek Lopez MD on November 04, 2016 at 16:38 Board Certified Radiologist. This report was verified electronically.
[2016-11-04] MEDS ORDERED: CEFEPIME INJ 2,000 MG in SODIUM CHLORIDE 0.9% INJ 100 ML IV ONE (17:45)
[2016-11-04] MEDS ORDERED: AZITHROMYCIN INJ 500 MG in SODIUM CHLOR 0.9% 250 ML INJ 250 ML IV ONE (17:45)
--- NOTE | 2016-11-04 17:54 | HHI.HP ---
[facility] Kristen Gordon Admission Diagnosis pneumonia Diagnoses: Chief Complaint: Constipation and fever Travel History International Travel<30 Days: No Contact w/Intl Traveler <30 Da: No Traveled to Known Affected Are: No History of Present Illness This is a 66-year-old male with history of chronic kidney disease status post transplant, congestive heart failure with ejection fraction of 35% and aortic stenosis, and recent fungemia and constipation ascending to the hospital with constipation, fever and cough. Of note, the patient was in the hospital from October 17 to October 29 for which patient was treated for fungemia and seen by infectious disease complicated by congestive heart failure exacerbation secondary to aortic stenosis and cardiomyopathy. Patient was discharged on October 29 with oral antifungals. However patient returned to the hospital for nausea and vomiting, for which patient was treated for constipation with an enema. Patient was discharged yesterday. However overnight, patient started having vomiting, with blood-tinged emesis after vomiting 10 times, associated with mid epigastric abdominal pain, constant, nonradiating, diffuse, associated with constipation. Last bowel movement was when patient was given enema 3 days ago. Patient has been passing gas, last was this morning. Of note, patient also noticed that his dry cough has been worsening associated with fever, chills and night sweats hence patient decided to go to the hospital. Patient denies any chest pain, mental status change, or urinary symptoms. Review of Systems ROS Limitations: Other (All other pertinent systems were reviewed and are negative.) Past Family Social History Past Medical History Aortic Stenosis discovered during October 2016 hospitalization Hypertension Diabetes Atrial fibrillation Peripheral arterial disease Carotid artery diseasestatus post bilateral CEA Renal transplant [id number] COPD CHF Hyperlipidemia Anxiety Hepatitis C Neuropathy Arthritis . Past Surgical History Renal transplant on the [id number] Left foot abscess resectionApril 2016 Bilateral CEA Ureteral stents placement Right knee arthroscopy Left AV fistula placement . Reported Medications Fluconazole 200 Mg Tab 400 Mg PO DAILY Labetalol (Labetalol HCl) 100 Mg Tab 100 Mg PO BID 30 Days Hydralazine HCl 25 Mg Tablet 25 Mg PO Q8HR 30 Days Nifedipine ER (Nifedipine) 90 Mg Tab 90 Mg PO HS 30 Days Furosemide 20 Mg Tab 20 Mg PO BID Tacrolimus 1 Mg Cap 1 Mg PO Q12H 30 Days Sodium Bicarbonate 650 Mg Tab 650 Mg PO DAILY Spiriva Handihaler (Tiotropium Inh) 18 Mcg Cap 18 Mcg INH DAILY 1 capsule = 18 mcg Ventolin Hfa 18 GM Inh (Albuterol Sulfate) 90 Mcg/Act Aer 1 Puff INH Q4H PRN Lantus Inj (Insulin Glargine) 100 Unit/Ml Inj 18 Units SQ NIGHTLY Colace (Docusate Sodium) 100 Mg Capsule 100 Mg PO BID Miralax Powder (Polyethylene Glycol 3350 Powder) 17 Gm Powd 17 Gm PO DAILY Mix and dissolve one measuring cap-ful (17 grams) in water or juice. Feosol (Ferrous Sulfate) 200 Mg Tab 200 Mg PO DAILY Multiple Vitamin 1 Tab 1 Tab PO DAILY Isosorbide Mononitrate ER (Isosorbide Mononitrate) 30 Mg Cherise 30 Mg PO DAILY Novolog Inj (Insulin Aspart) 1,000 Unit/10 Ml Vial 0 SQ ACHS AND 3AM Sliding Scale as directed. Hydrocodone-Acetaminophen 10-325 mg Tab 1 Tab PO TID PRN Ativan (Lorazepam) 1 Mg Tab 3 Mg PO HS Lyrica (Pregabalin) 25 Mg Cap 25 Mg PO TID Linzess (Linaclotide) 290 Mcg Cap 290 Mcg PO DAILY PRN Clonidine (Clonidine HCl) 0.1 Mg Tab 0.1 Mg PO DAILY Prednisone 5 Mg Tab 5 Mg PO DAILY Cellcept (Mycophenolate Mofetil) 500 Mg Tab 500 Mg PO BID Allergies: Coded Allergies: No Known Allergies (Unverified , 11/04/16) Family History Brother and sister with hypoglycemia and diabetes mellitus Social History Stopped smoking 14 years ago, denies significant alcohol use. Physical Exam Vital Signs Vital Signs Date Time Temp Pulse Resp B/P Pulse Ox O2 Delivery O2 Flow Rate FiO2 11/04/16 16:59 74 17 130/92 98 Room Air 11/04/16 15:35 17 11/04/16 13:19 99.9 77 20 145/67 98 Nasal Cannula 3 11/04/16 12:24 99.7 82 24 140/64 93 Room Air Physical Exam Not in distress, well-nourished, looks stated age, appears weak. Mildly short of breath. PERRL, pale conjunctiva without injection, anicteric Nose without bleeding, airway patent, oropharynx clear Supple neck, no masses or thyromegaly, trachea midline Normal rate and regular rhythm, audible murmur, 3/6, systolic. Decreased breath sounds symmetrically, rhonchi and occasional wheezing on the right base. Normal bowel sounds, soft, mildly tender, mildly distended, bowel sounds present , no guarding. Extremities without clubbing, cyanosis, or edema. No rash of generalized distribution. Skin is warm and dry. AAO x3, no cranial nerve deficits, moves all 4 extremities, no focal neurologic deficits Normal mood, appropriate affect Laboratory Laboratory Tests Test 11/04/16 11/04/16 13:15 14:05 White Blood Count 15.8 Red Blood Count 4.36 Hemoglobin 12.0 Hematocrit 36.0 Mean Corpuscular Volume 82.6 Mean Corpuscular Hemoglobin 27.5 Mean Corpuscular Hemoglobin 33.3 Concent Red Cell Distribution Width 15.3 Platelet Count 231 Mean Platelet Volume 8.6 Neutrophils (%) (Auto) 88.0 Lymphocytes (%) (Auto) 5.3 Monocytes (%) (Auto) 5.9 Eosinophils (%) (Auto) 0.3 Basophils (%) (Auto) 0.5 Neutrophils # (Auto) 13.9 Lymphocytes # (Auto) 0.8 Monocytes # (Auto) 0.9 Eosinophils # (Auto) 0.0 Basophils # (Auto) 0.1 CBC Comment DIFF FINAL Differential Comment Urine Color YELLOW Urine Turbidity CLEAR Urine pH 5.5 Urine Specific [place] 1.017 Urine Protein TRACE Urine Glucose (UA) NEG Urine Ketones NEG Urine Occult Blood NEG Urine Nitrite NEG Urine Bilirubin NEG Urine Urobilinogen LESS THAN 2.0 Urine Leukocyte Esterase NEG Urine RBC 1 Urine WBC 1 Urine Squamous Epithelial <1 Cells Urine Transitional Epithelial <1 Cells Urine Hyaline Casts 1 Microscopic Urinalysis Comment CULT NOT INDICATED Sodium Level 131 Potassium Level 4.8 Chloride Level 96 Carbon Dioxide Level 22.9 Anion Gap 12 Blood Urea Nitrogen 70 Creatinine 3.62 Estimat Glomerular Filtration 17 Rate Random Glucose 227 Calcium Level 9.7 Total Bilirubin 0.9 Aspartate Amino Transf 16 (AST/SGOT) Alanine Aminotransferase 21 (ALT/SGPT) Alkaline Phosphatase 135 Total Protein 7.5 Albumin 3.5 Lipase 76 Lactic Acid Level 1.1 Date/Time Procedure Status Source Growth 11/04/16 14:15 Aerobic Blood Culture Received Blood Peripheral Pending 11/04/16 14:15 Anaerobic Blood Culture Received Blood Peripheral Pending Result Diagram: 11/04/16 1315 11/04/16 1315 Imaging Last Impressions Chest X-Ray 11/04/16 0000 Signed Impressions: Service Date/Time: Friday, November 04, 2016 17:09 - CONCLUSION: Right base consolidation. Derrek Lopez MD Assessment and Plan Problem List: (1) Sepsis ICD Code: A41.9 Status: Acute (2) Aortic stenosis ICD Code: I35.0 Status: Chronic (3) FRANTZ (acute kidney injury) ICD Code: N17.9 Status: Acute (4) Constipation ICD Code: K59.00 Status: Acute (5) IDDM (insulin dependent diabetes mellitus) ICD Code: E11.9 Status: Chronic (6) HAP (hospital-acquired pneumonia) ICD Code: J18.9 Status: Acute Assessment and Plan This is a 66-year-old male with history of congestive heart failure, cardiomyopathy, aortic stenosis, chronic kidney disease status post kidney transplant, diabetes mellitus, and recent fungemia, presenting back to the hospital with nausea, vomiting, constipation and cough. Sepsis secondary to likely hospital-acquired pneumonia-sepsis base of leukocytosis, cough and subjective fever with hypoxia. CT scan and chest x-ray of the chest reviewed showed right lower lobe/perihilar consolidation. Will cover for hospital-acquired pneumonia with vancomycin and Zosyn. Check sputum culture, Legionella antigen and streptococcal antigen. Follow-up blood culture. Consult infectious disease. Recheck CBC tomorrow. 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 Restart Diflucan 400 milligrams daily, because of complexity of patient's clinical situation, will consult infectious disease. Severe constipation-we give an enema, and then start Coreen-Colace and MiraLAX daily. Acute renal failure on top of Chronic kidney disease status post kidney transplant- consult nephrology, restart mycophenolate, prednisone, tacrolimus, sodium bicarbonate, hold Lasix. Monitor urine output, recheck BMP tomorrow History of congestive heart failure, aortic stenosis-echocardiogram done in October , ejection fraction is 35%. Plan is to do outpatient TAVR once stable. Hypertension-restart labetalol per home dose, nifedipine, clonidine, Imdur. Diabetes mellitus type II - hold oral hypoglycemic agents, monitor BGs/ accuchecks ACHS, administer insulin via sliding scale with basal insulin per home dose DVT prophylaxis: Heparin Code Status Full code Discussed Condition With Physician Certification 2 Midnight Certification Type: Admission for Inpatient Services Order for Inpatient Services The services are ordered in accordance with Medicare regulations or non- Medicare payer requirements, as applicable. In the case of services not specified as inpatient-only, they are appropriately provided as inpatient services in accordance with the 2-midnight benchmark. Estimated LOS (days): 2 days is the estimated time the patient will need to remain in the hospital, assuming treatment plan goals are met and no additional complications. Post-Hospital Plan: Home Jonny Mccullough MD Nov 04, 2016 17:54
[2016-11-04 18:05] VITALS: BP 131/62; PULSE 76; RESP 18; O2SAT 96
[2016-11-04] MEDS ORDERED: SODIUM CHLORIDE 0.9% FLUSH 10 ML FLUSH IV FLUSH PRN (18:15)
[2016-11-04] MEDS ORDERED: Vancomycin Consult Pharmacy 1 EA OTHER SCH (18:15)
[2016-11-04] MEDS ORDERED: VANCOMYCIN INJ 1,000 MG in SODIUM CHLOR 0.9% 250 ML INJ 250 ML IV ONE (18:15)
[2016-11-04] MEDS ORDERED: guaiFENesin/DEXTROMETHORPHAN 200 MG/20 MG/10 ML CUP PO PRN (18:15)
[2016-11-04] MEDS ORDERED: ACETAMINOPHEN 325 MG TAB PO PRN (18:15)
[2016-11-04] MEDS ORDERED: RESP: ALBUTEROL 2.5 MG/IPRATROPIUM 0.5 MG NEB (PRN) INH (18:15)
[2016-11-04] MEDS: PIPERACIL-TAZO 4.5 GM PREMIX 100 ML IV SCH (18:15)
[2016-11-04] MEDS ORDERED: SOD PHOSPHATE/SOD BIPHOSPHATE (ADULT) ENEMA 133ML RECTAL ONE (18:30)
[2016-11-04] MEDS ORDERED: VANCOMYCIN INJ 2,000 MG in SODIUM CHLORID 0.9% 500 ML INJ 500 ML IV ONE (18:30)
[2016-11-04] MEDS ORDERED: SOD PHOSPHATE/SOD BIPHOSPHATE (ADULT) ENEMA 133ML RECTAL PRN (18:30)
[2016-11-04] MEDS: ACETAMINOPHEN/HYDROcodone 325 MG/10 MG TAB PO PRN (18:45)
[2016-11-04] MEDS ORDERED: LINACLOTIDE 290 MCG PO PRN (19:00)
[2016-11-04 19:09] VITALS: BP 118/57; PULSE 74; RESP 18; TEMP 98.2; O2SAT 94
[2016-11-04] MEDS: LORazepam 1 MG TAB PO SCH (20:15)
[2016-11-04] MEDS: SODIUM CHLORIDE 0.9% FLUSH 10 ML FLUSH IV FLUSH SCH (20:19)
[2016-11-04] MEDS: DOCUSATE SODIUM 50 MG/SENNA 8.6 MG TAB PO SCH (21:00)
[2016-11-04] MEDS: LABETALOL HCL 100 MG TAB PO SCH (21:47)
[2016-11-04] MEDS: hydrALAZINE HCL 25 MG TAB PO SCH (21:47)
[2016-11-04] MEDS: MYCOPHENOLATE MOFETIL 500 MG TAB PO SCH (21:47)
[2016-11-04] MEDS: NIFEdipine 90 MG SUSTAINED RELEASE TAB PO SCH (21:47)
[2016-11-04] MEDS: TACROLIMUS 1 MG CAP PO SCH (21:47)
[2016-11-04] MEDS: HEPARIN SODIUM - SQ 10,000 UNITS/ML VIAL SQ SCH (21:48)
[2016-11-04] MEDS: INSULIN DETEMIR 100 UNITS/ML VIAL SQ SCH (22:00)
[2016-11-05] VITALS (7 sets, daily range): BP systolic 102–116; BP diastolic 51–59; PULSE 59–69; RESP 18–20; TEMP 97.7–98.6; O2SAT 92–97
[2016-11-05] MEDS: RESP: ALBUTEROL 2.5 MG/IPRATROPIUM 0.5 MG NEB (SCH) INH ×5 (01:15→20:09)
[2016-11-05] MEDS: PIPERACIL-TAZO 4.5 GM PREMIX 100 ML IV SCH ×2 (01:57→11:03)
[2016-11-05] MEDS: ACETAMINOPHEN/HYDROcodone 325 MG/10 MG TAB PO PRN ×3 (01:57→20:22)
[2016-11-05 05:47] LABS: AUTOMATED NEUTROPHIL # 11.3 TH/MM3 (1.8-7.7); BASOPHIL % 0.2 % (0.0-2.0); HEMO FLAGS DIFF FINAL; LYMPH % 7.5 % (9.0-44.0); MEAN CELL VOLUME 82.9 FL (80.0-100.0); MEAN CORPUSCULAR HEMOGLOBIN 27.4 PG (27.0-34.0); MEAN CORPUSCULAR HGB CONC 33.1 % (32.0-36.0); MONO % 6.7 % (0.0-8.0); NEUT % 85.6 % (16.0-70.0); PLATELET COUNT 185 TH/MM3 (150-450); RED BLOOD COUNT 3.99 MIL/MM3 (4.50-5.90); RED CELL DISTRIBUTION WIDTH 15.4 % (11.6-17.2); WHITE BLOOD COUNT 13.2 TH/MM3 (4.0-11.0)
[2016-11-05 06:16] LABS: BICARBONATE 21.1 MEQ/L (21.0-32.0); POTASSIUM 4.8 MEQ/L (3.5-5.1)
[2016-11-05] MEDS: TACROLIMUS 1 MG CAP PO SCH ×2 (06:50→18:00)
[2016-11-05] MEDS: hydrALAZINE HCL 25 MG TAB PO SCH ×3 (06:50→20:21)
[2016-11-05] MEDS: MYCOPHENOLATE MOFETIL 500 MG TAB PO SCH ×2 (06:50→18:00)
[2016-11-05] MEDS: HEPARIN SODIUM - SQ 10,000 UNITS/ML VIAL SQ SCH ×3 (06:51→20:22)
[2016-11-05] MEDS: cloNIDine HCL 0.1 MG TAB PO SCH (09:00)
[2016-11-05] MEDS: TIOTROPIUM BROMIDE 18 MCG INH INH SCH (09:00)
[2016-11-05] MEDS: DOCUSATE SODIUM 50 MG/SENNA 8.6 MG TAB PO SCH ×2 (09:00→20:21)
[2016-11-05] MEDS ORDERED: FLUCONAZOLE 200 MG TAB PO SCH (09:00)
[2016-11-05] MEDS: PREGABALIN 25 MG CAP PO SCH ×3 (09:39→18:00)
[2016-11-05] MEDS: LACTULOSE SYRUP 20 GM/30 ML CUP PO SCH (09:39)
[2016-11-05] MEDS: predniSONE 5 MG TAB PO SCH (09:39)
[2016-11-05] MEDS: SODIUM BICARBONATE 650 MG TAB PO SCH (09:39)
[2016-11-05] MEDS: POLYETHYLENE GLYCOL 17 GM PKG PO SCH (09:39)
[2016-11-05] MEDS: FERROUS SULFATE 325 MG (65 MG ELEMENTAL IRON) TAB PO SCH (09:39)
[2016-11-05] MEDS: MULTIVITAMIN TAB PO SCH (09:39)
[2016-11-05] MEDS: LABETALOL HCL 100 MG TAB PO SCH ×2 (09:41→20:41)
[2016-11-05] MEDS: ISOSORBIDE MONONITRATE 30 MG TAB PO SCH (09:41)
[2016-11-05] MEDS: SODIUM CHLORIDE 0.9% FLUSH 10 ML FLUSH IV FLUSH SCH ×2 (09:42→20:23)
[2016-11-05] MEDS: FLUCONAZOLE 200 MG IV SCH (09:42)
--- NOTE | 2016-11-05 14:38 | HHI.PR ---
Subjective Remarks Patient laying in bed stated he has cough but he not able to cough up phlegm No fever or chills No short of breath Mild diarrhea Discussed with ID plan for pulmonary consult also will need for BAL Objective Vitals Vital Signs Date Time Temp Pulse Resp B/P Pulse Ox O2 Delivery O2 Flow Rate FiO2 11/05/16 12:00 98.6 64 20 115/59 92 11/05/16 09:19 93 Nasal Cannula 4.00 11/05/16 08:00 97.7 69 18 109/59 92 11/05/16 08:00 94 Nasal Cannula 4.00 11/05/16 04:00 98.6 64 18 102/51 96 11/05/16 00:00 98.6 64 18 116/56 92 11/04/16 20:02 Nasal Cannula 3.00 11/04/16 19:09 98.2 74 18 118/57 94 11/04/16 18:05 76 18 131/62 96 Nasal Cannula 3 11/04/16 16:59 74 17 130/92 98 Room Air 11/04/16 15:35 17 I/O 11/04/16 11/04/16 11/04/16 11/05/16 11/05/16 11/05/16 07:00 15:00 23:00 07:00 15:00 23:00 Intake Total 240 ml Output Total 100 ml 300 ml Balance -100 ml -60 ml Intake Oral 240 ml Output Urine Total 100 ml 300 ml # Bowel Movements 1 Result Diagram: 11/05/16 0420 11/05/16 0420 Objective Remarks GENERAL: This is a well-nourished, well-developed patient, in no apparent distress. SKIN: No rashes, warm and dry HEAD: Atraumatic. Normocephalic. EYES: Pupils equal round and reactive. Extraocular motions intact. No scleral icterus. ENT: Nose without bleeding, or drainage, Airway patent. NECK: Trachea midline. Supple CARDIOVASCULAR: Regular rate and rhythm without murmurs, gallops, or rubs. RESPIRATORY: Decreased breath sounds on the right base GASTROINTESTINAL: Abdomen soft, non-tender, nondistended. Positive bowel sounds MUSCULOSKELETAL: Extremities without clubbing, cyanosis, or edema. Pedal pulses appreciated NEUROLOGICAL: Awake and alert. Moves all extremity. Normal speech.no focal neurological deficit A/P Problem List: (1) Sepsis ICD Code: A41.9 Status: Acute (2) Aortic stenosis ICD Code: I35.0 Status: Chronic (3) FRANTZ (acute kidney injury) ICD Code: N17.9 Status: Acute (4) Constipation ICD Code: K59.00 Status: Acute (5) IDDM (insulin dependent diabetes mellitus) ICD Code: E11.9 Status: Chronic (6) HAP (hospital-acquired pneumonia) ICD Code: J18.9 Status: Acute Assessment and Plan This is a 66-year-old male with history of congestive heart failure, cardiomyopathy, aortic stenosis, chronic kidney disease status post kidney transplant, diabetes mellitus, and recent fungemia, presenting back to the hospital with nausea, vomiting, constipation and cough. 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 Centeno if found to be cryptococcus pneumonia patient will need micafungin which will be high risk for graft kidney injury O2 DuoNeb Diflucan ID consulted and discussed with Dr. Centeno Pulmonology consulted for BAL Sputum culture, urine antigen for Legionella and pneumococcus Hold Lasix Continue prednisone and mycophenolate tacrolimus Consult nephrology Consul GI for dysphagia Aaron Arana MD Nov 05, 2016 14:38
--- NOTE | 2016-11-05 15:06 | PD.ID.CON ---
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, His antigen stayed negative His crypto antigen in CSF was negative and CSF was not cw meningitits He was treated with high dose Fluconazole and clinically responded He also has L hallux infection and naile was removed by Dr Matos - clx with Fuzarium He developped CHF exacerbation during his last hospitalisation and was found to have moderted to severe aortic stenosis (progressed since 2014) and severe CHF 'He was supposed to go fro preop evaulation after discharge for TAVR vs AVR Pt was discharge on oral fluconazole and was doing fine ootially, however last few days he developped severe reflux (pt was Barrettr, last EGD 1 yr ago) and nause, vomitiing x 10, constipation, cough (not productive) and presented with above simptoms yday His CTb showed new hilar and perihi;ar infiltrate His sensitivities on crypto are still pending Since admission his vomiting resolved, he developped liquid diarrhea and noted to have low grade fever He wa started on broad spectru m abx and fluconazole is continued (200 mg) Review of Systems Constitutional: COMPLAINS OF: Fever, Chills Respiratory: COMPLAINS OF: Cough, Shortness of breath Gastrointestinal: COMPLAINS OF: Abdominal pain, Diarrhea, Nausea Except as stated in HPI: all other systems reviewed are Neg Past Family Social History Allergies: Coded Allergies: No Known Allergies (Unverified , 11/04/16) Past Medical History Aortic Stenosis discovered in 2014, moderately to severe per October 2016 echo Hypertension Diabetes Atrial fibrillation Peripheral arterial disease Carotid artery diseasestatus post bilateral CEA Renal transplant [id number] COPD CHF, EF 35% Hyperlipidemia Anxiety Hepatitis C Neuropathy Arthritis Sam's esopagus Past Surgical History Renal transplant on the [id number] Left foot abscess resectionApril 2016 Bilateral CEA Ureteral stents placement Right knee arthroscopy Left AV fistula placement Active Ordered Medications Medications where reviewed in EMR Antibiotics Include: fluconazole zosyn Family History Non-Contributory to current condition Social History remote tobacco no significiant ETOH no drugs Physical Exam Vital Signs Vital Signs Date Time Temp Pulse Resp B/P Pulse Ox O2 Delivery O2 Flow Rate FiO2 11/05/16 12:00 98.6 64 20 115/59 92 11/05/16 09:19 93 Nasal Cannula 4.00 11/05/16 08:00 97.7 69 18 109/59 92 11/05/16 08:00 94 Nasal Cannula 4.00 11/05/16 04:00 98.6 64 18 102/51 96 11/05/16 00:00 98.6 64 18 116/56 92 11/04/16 20:02 Nasal Cannula 3.00 11/04/16 19:09 98.2 74 18 118/57 94 11/04/16 18:05 76 18 131/62 96 Nasal Cannula 3 11/04/16 16:59 74 17 130/92 98 Room Air 11/04/16 15:35 17 Physical Exam CONSTITUTIONAL/GENERAL: This is an adequately nourished patient, in no apparent distress. TUBES/LINES/DRAINS: SKIN: No jaundice, rashes, or lesions. Skin temperature appropriate. Not diaphoretic. HEAD: Atraumatic. Normocephalic. EYES: Pupils equal and round and reactive. Extraocular motions intact. No scleral icterus. No injection or drainage. Fundi not examined. ENT: Hearing grossly normal. Oral mucosae at without visible erythema, exudates , masses, or lesions. NECK: Trachea midline. Supple, nontender. N CARDIOVASCULAR: Regular rate and rhythm + 3/6 holosystolic harsh murmur with max on RUSB no , gallops, or rubs. No JVD. Peripheral pulses symmetric. RESPIRATORY/CHEST: Symmetric, unlabored respirations. Clear to auscultation. Breath sounds equal bilaterally. No wheezes, rales, or rhonchi. GASTROINTESTINAL: Abdomen soft, non-tender, nondistended. No hepato-splenomegaly , + slightly tender palpable sixto in RLQ cw allograft. No guarding. Bowel sounds present. GENITOURINARY: Without palpable bladder distension. MUSCULOSKELETAL: Extremities without clubbing, cyanosis, or edema. No joint tenderness or effusion noted. No calf tenderness. No mottling or clubbing. LYMPHATICS: No palpable cervical or supraclavicular adenopathy. NEUROLOGICAL: Awake and alert. Motor and sensory grossly within normal limits. Follows commands. Clear speech. Moves all extremities. PSYCHIATRIC: No obvious anxiety/depression. no apparent hallucinations or other psychotic thought process. Laboratory Laboratory Tests Test 11/05/16 04:20 White Blood Count 13.2 Red Blood Count 3.99 Hemoglobin 10.9 Hematocrit 33.0 Mean Corpuscular Volume 82.9 Mean Corpuscular Hemoglobin 27.4 Mean Corpuscular Hemoglobin 33.1 Concent Red Cell Distribution Width 15.4 Platelet Count 185 Mean Platelet Volume 9.2 Neutrophils (%) (Auto) 85.6 Lymphocytes (%) (Auto) 7.5 Monocytes (%) (Auto) 6.7 Eosinophils (%) (Auto) 0.0 Basophils (%) (Auto) 0.2 Neutrophils # (Auto) 11.3 Lymphocytes # (Auto) 1.0 Monocytes # (Auto) 0.9 Eosinophils # (Auto) 0.0 Basophils # (Auto) 0.0 CBC Comment DIFF FINAL Differential Comment Sodium Level 130 Potassium Level 4.8 Chloride Level 97 Carbon Dioxide Level 21.1 Anion Gap 12 Blood Urea Nitrogen 79 Creatinine 3.68 Estimat Glomerular Filtration 17 Rate Random Glucose 176 Calcium Level 9.5 B-Type Natriuretic Peptide 2241 Date/Time Procedure Status Source Growth 11/04/16 14:15 Aerobic Blood Culture - Preliminary Resulted Blood Peripheral NO GROWTH IN 1 DAY 11/04/16 14:15 Anaerobic Blood Culture - Preliminary Resulted Blood Peripheral NO GROWTH IN 1 DAY 11/04/16 13:15 Legionella Antigen - Final Complete Urine Clean Catch PRESUMPTIVE NEGATIVE FOR LEGIONELLA P... Result Diagram: 11/05/16 0420 11/05/16 0420 Imaging Last Impressions Abdomen/Pelvis CT 11/04/16 1248 Signed Impressions: Service Date/Time: Friday, November 04, 2016 14:45 - CONCLUSION: 1. New large consolidation seen at the right hilar and infrahilar region. 2. Mild thickening of the distal esophagus. This is nonspecific. 3. Distention of the stomach. 4. Transplanted kidney in the right lower quadrant. There is a 2.9 cm cyst at the inferior transplanted kidney. 5. Very extensive atherosclerotic calcifications seen throughout the arterial system. Derrek Lopez MD Chest X-Ray 11/04/16 0000 Signed Impressions: Service Date/Time: Friday, November 04, 2016 17:09 - CONCLUSION: Right base consolidation. Derrek Lopez MD Assessment and Plan Assessment and Plan PNA ? ethiology ? cryptococcus, vs bacterial vs other fungi vs other (viruses, atypical mycobacterial) - New large consolidation seen at the right hilar and infrahilar region, - known cryptococcal disease, disseminated Immunosuppressed, sp renal allograft Adavnced CKD in renal allograft Nausea, vpmiting, distal esophageal thickening, known Sam's Diarrhea, abx associated Aortic stenosis Sever CHF Multiple med problems cont high dose fluconazole 800-1200 (will be 400-600 renally adjusted) cont broad spectrum abx obtaine sputum - will consult ulmonalgist since pt is not expectorating , will need early bronch fu blood clx fu sputu clx fu crypto serology In case of confirmes crypto recurrentce and clinical deterioration will needd to be switche d to Amphothericin B, however this will put him in tremendous risk of loosing transplant and should be only reserved for last resort add doxycyline for atypical coverage Discussed Condition With pt, at b/s Nancy Centeno MD Nov 05, 2016 15:06
--- NOTE | 2016-11-05 16:32 | PD.CONS ---
HPI History of Present Illness This is a 66 year old male with hx CKD s/p kidney transplant, CHF, anemia, Palacios's who presented with severe acid reflux and regurgitation. He was admitted 10/17/16 for fungemia and after discharge when he had a meal at home he experienced reflux of "acid" after eating, but not regurgitation of the food. He was seen 11/01/16 for the acid reflux and discharged. He returned again to the hospital b/c he is unable to eat without regurgitating acid. He is complaining of constipation and just did an enema which he says returned soft paste like stool. HE does c/o nausea and sporadic vomiting as well. 2 days ago he had an episode of vomiting and noticed some bright red blood but none prior and none since. HE had EGD/colonoscopy with DR Osman in [place] 1 year ago , findings include colon polyps, Palacios's. He has tried prilosec but it does not help. NOt on blood thinners, NSAIDs. PFSH Past Medical History Aortic Stenosis discovered during October 2016 hospitalization Hypertension Diabetes Atrial fibrillation Peripheral arterial disease Carotid artery diseasestatus post bilateral CEA Renal transplant [id number] COPD CHF Hyperlipidemia Anxiety Hepatitis C Neuropathy Arthritis . Past Surgical History Renal transplant on the [id number] Left foot abscess resectionApril 2016 Bilateral CEA Ureteral stents placement Right knee arthroscopy Left AV fistula placement . Coded Allergies: No Known Allergies (Unverified , 11/04/16) Family History Brother and sister with hypoglycemia and diabetes mellitus Social History Stopped smoking 14 years ago, denies significant alcohol use. Review of Systems Constitutional: DENIES: Fatigue Ears, nose, mouth, throat: DENIES: Hearing loss Respiratory: DENIES: Hemoptysis Cardiovascular: DENIES: Chest pain Gastrointestinal: COMPLAINS OF: Abdominal pain, Constipation, Nausea, Vomiting , Heartburn, Hematemesis, DENIES: Black stools, Bloody stools, Difficulty Swallowing Genitourinary: DENIES: Urinary incontinence Musculoskeletal: DENIES: Joint Swelling Integumentary: DENIES: Rash Neurologic: DENIES: Abnormal gait Psychiatric: DENIES: Confusion GI Exam Vitals I&O Vital Signs Date Time Temp Pulse Resp B/P Pulse Ox O2 Delivery O2 Flow Rate FiO2 11/05/16 12:00 98.6 64 20 115/59 92 11/05/16 09:19 93 Nasal Cannula 4.00 11/05/16 08:00 97.7 69 18 109/59 92 11/05/16 08:00 94 Nasal Cannula 4.00 11/05/16 04:00 98.6 64 18 102/51 96 11/05/16 00:00 98.6 64 18 116/56 92 11/04/16 20:02 Nasal Cannula 3.00 11/04/16 19:09 98.2 74 18 118/57 94 11/04/16 18:05 76 18 131/62 96 Nasal Cannula 3 11/04/16 16:59 74 17 130/92 98 Room Air I/O 11/04/16 11/04/16 11/04/16 11/05/16 11/05/16 11/05/16 07:00 15:00 23:00 07:00 15:00 23:00 Intake Total 240 ml Output Total 100 ml 300 ml Balance -100 ml -60 ml Intake Oral 240 ml Output Urine Total 100 ml 300 ml # Bowel Movements 1 Imaging Last Impressions Abdomen/Pelvis CT 11/04/16 1248 Signed Impressions: Service Date/Time: Friday, November 04, 2016 14:45 - CONCLUSION: 1. New large consolidation seen at the right hilar and infrahilar region. 2. Mild thickening of the distal esophagus. This is nonspecific. 3. Distention of the stomach. 4. Transplanted kidney in the right lower quadrant. There is a 2.9 cm cyst at the inferior transplanted kidney. 5. Very extensive atherosclerotic calcifications seen throughout the arterial system. Derrek Lopez MD Chest X-Ray 11/04/16 0000 Signed Impressions: Service Date/Time: Friday, November 04, 2016 17:09 - CONCLUSION: Right base consolidation. Derrek Lopez MD Laboratory Test 11/05/16 04:20 White Blood Count 13.2 TH/MM3 Red Blood Count 3.99 MIL/MM3 Hemoglobin 10.9 GM/DL Hematocrit 33.0 % Mean Corpuscular Volume 82.9 FL Mean Corpuscular Hemoglobin 27.4 PG Mean Corpuscular Hemoglobin 33.1 % Concent Red Cell Distribution Width 15.4 % Platelet Count 185 TH/MM3 Mean Platelet Volume 9.2 FL Neutrophils (%) (Auto) 85.6 % Lymphocytes (%) (Auto) 7.5 % Monocytes (%) (Auto) 6.7 % Eosinophils (%) (Auto) 0.0 % Basophils (%) (Auto) 0.2 % Neutrophils # (Auto) 11.3 TH/MM3 Lymphocytes # (Auto) 1.0 TH/MM3 Monocytes # (Auto) 0.9 TH/MM3 Eosinophils # (Auto) 0.0 TH/MM3 Basophils # (Auto) 0.0 TH/MM3 CBC Comment DIFF FINAL Differential Comment Sodium Level 130 MEQ/L Potassium Level 4.8 MEQ/L Chloride Level 97 MEQ/L Carbon Dioxide Level 21.1 MEQ/L Anion Gap 12 MEQ/L Blood Urea Nitrogen 79 MG/DL Creatinine 3.68 MG/DL Estimat Glomerular Filtration 17 ML/MIN Rate Random Glucose 176 MG/DL Calcium Level 9.5 MG/DL B-Type Natriuretic Peptide 2241 PG/ML Date/Time Procedure Status Source Growth 11/04/16 14:15 Aerobic Blood Culture - Preliminary Resulted Blood Peripheral NO GROWTH IN 1 DAY 11/04/16 14:15 Anaerobic Blood Culture - Preliminary Resulted Blood Peripheral NO GROWTH IN 1 DAY 11/04/16 13:15 Legionella Antigen - Final Complete Urine Clean Catch PRESUMPTIVE NEGATIVE FOR LEGIONELLA P... Physical Examination HEENT: PERRL; normocephalic; atraumatic; no jaundice. CHEST: CTA CARDIAC: RRR + murmur ABDOMEN: Soft, nondistended, mild LLQ TTP; no hepatosplenomegaly; bowel sounds are present in all four quadrants. EXTREMITIES: No clubbing, cyanosis, or edema. SKIN: Normal; no rash; no jaundice. HEAD HOUSEKEEPER: No focal deficits; alert and oriented times three. Assessment and Plan Plan ASSESSMENT - acid reflux, n/v - severe, regurgitating acid after eating, sporadic vomiting. 1 x episode hematemesis, none prior or since. - anemia - 12.0 on admission, currently 10.9 - sepsis - PNA HCAP vs cryptococcus, per primary. ID following - FRANTZ on CKD - s/p kidney transplant, on tacrolimus & mycophenolate, per primary PLAN - EGD sat - obtain consents - clears for now, can adv tomorrow if erendira - NPO after midnight Saturday - monitor labs - further recommendations to follow THis pt seen by myself and Dr Everett and this note is written on his behalf Hina Love Nov 05, 2016 16:32
[2016-11-05] MEDS: PIPERACIL-TAZO 3.375 GM PREMIX 50 ML IV SCH ×2 (17:00→22:35)
[2016-11-05 17:31] LABS: C. DIFF EPI 027 PRESUMPTIVE NEGATIVE (NEGATIVE); C. DIFF TOXIN PCR NEGATIVE (NEGATIVE)
--- NOTE | 2016-11-05 19:50 | PD.CONS ---
[facility] Service Nephrology Consult Requested By Dr. Mccullough Reason for Consult Status post kidney transplant Primary Care Physician Kristen Gordon History of Present Illness Patient is a 66-year-old white male who received a cadaveric kidney transplant on July 12, 2014 postoperative combination with obstructive uropathy requiring percutaneous nephrostomies and stent placement his kidney function did improve however his creatinine is around 2.3 lately he has been having increase sickness , fevers, left foot infection, severe aortic stenosis, recurrent admissions and recently diagnosed cryptococcal infection, he had lumbar puncture done which did not show involvement BIOMETRICS HEAD, he was discharged on fluconazole however she developed nausea and vomiting and could not keep anything down he was readmitted having pneumonia, infectious disease is following. His creatinine is increased to 3.6, he denies any pain over the graft. Today he had diarrhea. Review of Systems Constitutional: COMPLAINS OF: Fatigue Respiratory: COMPLAINS OF: Shortness of breath Gastrointestinal: COMPLAINS OF: Nausea, Vomiting Neurologic: COMPLAINS OF: Abnormal gait Psychiatric: COMPLAINS OF: Anxiety Past Family Social History Allergies: Coded Allergies: No Known Allergies (Unverified , 11/04/16) Past Medical History Diabetes Kidney transplant Hypertension Aortic stenosis peripheral vascular disease Congestive heart failure Hepatitis C Left foot infection Past Surgical History Percutaneous nephrostomies Stent placement Bilateral carotid endarterectomy Kidney transplant AV fistula left arm Liver biopsy Diabetic retinopathy Endoscopies Right knee arthroscopy Reported Medications Reported Meds & Active Scripts Active Fluconazole 200 Mg Tab 400 Mg PO DAILY Labetalol (Labetalol HCl) 100 Mg Tab 100 Mg PO BID 30 Days Hydralazine HCl 25 Mg Tablet 25 Mg PO Q8HR 30 Days Nifedipine ER (Nifedipine) 90 Mg Tab 90 Mg PO HS 30 Days Furosemide 20 Mg Tab 20 Mg PO BID Tacrolimus 1 Mg Cap 1 Mg PO Q12H 30 Days Sodium Bicarbonate 650 Mg Tab 650 Mg PO DAILY Spiriva Handihaler (Tiotropium Inh) 18 Mcg Cap 18 Mcg INH DAILY 1 capsule = 18 mcg Ventolin Hfa 18 GM Inh (Albuterol Sulfate) 90 Mcg/Act Aer 1 Puff INH Q4H PRN Reported Lantus Inj (Insulin Glargine) 100 Unit/Ml Inj 18 Units SQ NIGHTLY Colace (Docusate Sodium) 100 Mg Capsule 100 Mg PO BID Miralax Powder (Polyethylene Glycol 3350 Powder) 17 Gm Powd 17 Gm PO DAILY Mix and dissolve one measuring cap-ful (17 grams) in water or juice. Feosol (Ferrous Sulfate) 200 Mg Tab 200 Mg PO DAILY Multiple Vitamin 1 Tab 1 Tab PO DAILY Isosorbide Mononitrate ER (Isosorbide Mononitrate) 30 Mg Cherise 30 Mg PO DAILY Novolog Inj (Insulin Aspart) 1,000 Unit/10 Ml Vial 0 SQ ACHS AND 3AM Sliding Scale as directed. Hydrocodone-Acetaminophen 10-325 mg Tab 1 Tab PO TID PRN Ativan (Lorazepam) 1 Mg Tab 3 Mg PO HS Lyrica (Pregabalin) 25 Mg Cap 25 Mg PO TID Linzess (Linaclotide) 290 Mcg Cap 290 Mcg PO DAILY PRN Clonidine (Clonidine HCl) 0.1 Mg Tab 0.1 Mg PO DAILY Prednisone 5 Mg Tab 5 Mg PO DAILY Cellcept (Mycophenolate Mofetil) 500 Mg Tab 500 Mg PO BID Active Ordered Medications Current Medications Medications (Trade) Dose Ordered Sig/Rai Route Start Time Stop Time Status Last Admin (NS Flush) 2 ml UNSCH PRN IV FLUSH 11/04/16 18:15 Sodium Chloride 2 ml 2 ml BID IV FLUSH 11/04/16 21:00 11/05/16 09:42 (Vancomycin Consult Pharmacy) 0 ml @ 0 mls/hr UNSCH OTHER 11/04/16 18:15 (Tylenol) 650 mg Q4H PRN PO 11/04/16 18:15 (Zofran Inj) 4 mg Q6H PRN IV 11/04/16 18:15 (Robitussin Dm 200-20 Mg/10 ml Liq) 10 ml Q4H PRN PO 11/04/16 18:15 11/05/16 10:19 (Heparin Inj) 5,000 units Q8H SQ 11/04/16 22:00 Future Hold 11/05/16 18:39 (Coreen-Colace) 1 tab BID PO 11/04/16 21:00 (Dulcolax Supp) 10 mg DAILY PRN RECTAL 11/04/16 18:30 (Lactulose Liq) 30 ml DAILY PO 11/05/16 09:00 11/05/16 09:39 (Fleets Enema (Adult)) 133 ml UNSCH PRN RECTAL 11/04/16 18:30 (Catapres) 0.1 mg DAILY PO 11/05/16 09:00 11/05/16 09:00 (Ferrous Sulfate) 325 mg DAILY PO 11/05/16 09:00 11/05/16 09:39 (Apresoline) 25 mg Q8HR PO 11/04/16 22:00 11/05/16 14:00 (Velarde 10-325 Mg) 1 tab TID PRN PO 11/04/16 18:30 11/05/16 11:04 (Levemir Inj) 18 units HS SQ 11/04/16 21:00 11/04/16 22:00 (Imdur) 30 mg DAILY PO 11/05/16 09:00 11/05/16 09:41 (Trandate) 100 mg BID PO 11/04/16 21:00 11/05/16 09:41 (Ativan) 3 mg HS PO 11/04/16 21:00 11/04/16 20:15 (Procardia Xl) 90 mg HS PO 11/04/16 21:00 11/04/16 21:47 (Miralax) 17 gm DAILY PO 11/05/16 09:00 11/05/16 09:39 (Deltasone) 5 mg DAILY PO 11/05/16 09:00 11/05/16 09:39 (Lyrica) 25 mg TID PO 11/05/16 09:00 11/05/16 18:00 (Sodium Bicarbonate) 650 mg DAILY PO 11/05/16 09:00 11/05/16 09:39 (Prograf) 1 mg BID@06,18 PO 11/04/16 18:30 11/05/16 18:00 (Spiriva Inh) 18 mcg DAILY INH 11/05/16 09:00 Patient Own Medication PT OWN MED: (Linaclotide (Linze... DAILY PRN PO 11/04/16 19:00 Hold Multivitamins 1 tab 1 tab DAILY PO 11/05/16 09:00 11/05/16 09:39 Fluconazole/ Sodium Chloride 300 ml @ 100 mls/hr Q24H IV 11/05/16 09:00 11/05/16 09:42 (Zosyn 3.375 Gm Premix) 50 ml @ 100 mls/hr Q6H IV 11/05/16 17:00 11/05/16 17:00 Family History Noncontributory Social History History of smoking in the past Physical Exam Vital Signs Vital Signs Date Time Temp Pulse Resp B/P Pulse Ox O2 Delivery O2 Flow Rate FiO2 11/05/16 16:00 98.5 59 20 113/55 95 11/05/16 12:00 98.6 64 20 115/59 92 11/05/16 09:19 93 Nasal Cannula 4.00 11/05/16 08:00 69 11/05/16 08:00 97.7 69 18 109/59 92 11/05/16 08:00 94 Nasal Cannula 4.00 11/05/16 04:00 98.6 64 18 102/51 96 11/05/16 00:00 98.6 64 18 116/56 92 11/04/16 20:02 Nasal Cannula 3.00 Physical Exam GENERAL: Well-nourished, well-developed patient. SKIN: Warm and dry. HEAD: Normocephalic. EYES: No scleral icterus. No injection or drainage. NECK: Supple, trachea midline. No JVD or lymphadenopathy. CARDIOVASCULAR: Regular rate and rhythm a 3 x 6 systolic murmur RESPIRATORY: Breath sounds diminished at bases GASTROINTESTINAL: Abdomen soft, non-tender slightly distended. EXTREMITIES: No cyanosis, or edema. NEUROLOGICAL: Awake, alert, and oriented x 3. Non-focal. Laboratory Laboratory Tests Test 11/05/16 11/05/16 04:20 15:11 White Blood Count 13.2 Red Blood Count 3.99 Hemoglobin 10.9 Hematocrit 33.0 Mean Corpuscular Volume 82.9 Mean Corpuscular Hemoglobin 27.4 Mean Corpuscular Hemoglobin 33.1 Concent Red Cell Distribution Width 15.4 Platelet Count 185 Mean Platelet Volume 9.2 Neutrophils (%) (Auto) 85.6 Lymphocytes (%) (Auto) 7.5 Monocytes (%) (Auto) 6.7 Eosinophils (%) (Auto) 0.0 Basophils (%) (Auto) 0.2 Neutrophils # (Auto) 11.3 Lymphocytes # (Auto) 1.0 Monocytes # (Auto) 0.9 Eosinophils # (Auto) 0.0 Basophils # (Auto) 0.0 CBC Comment DIFF FINAL Differential Comment Sodium Level 130 Potassium Level 4.8 Chloride Level 97 Carbon Dioxide Level 21.1 Anion Gap 12 Blood Urea Nitrogen 79 Creatinine 3.68 Estimat Glomerular Filtration 17 Rate Random Glucose 176 Calcium Level 9.5 B-Type Natriuretic Peptide 2241 Stool C. difficile Toxin (PCR) NEGATIVE Stl C. difficile Toxin PRESUMPTIVE Epiderm 027 NEGATIVE Date/Time Procedure Status Source Growth 11/04/16 14:15 Aerobic Blood Culture - Preliminary Resulted Blood Peripheral NO GROWTH IN 1 DAY 11/04/16 14:15 Anaerobic Blood Culture - Preliminary Resulted Blood Peripheral NO GROWTH IN 1 DAY 11/04/16 13:15 Legionella Antigen - Final Complete Urine Clean Catch PRESUMPTIVE NEGATIVE FOR LEGIONELLA P... Result Diagram: 11/05/16 0420 11/05/16 0420 Imaging Last Impressions Abdomen/Pelvis CT 11/04/16 1248 Signed Impressions: Service Date/Time: Friday, November 04, 2016 14:45 - CONCLUSION: 1. New large consolidation seen at the right hilar and infrahilar region. 2. Mild thickening of the distal esophagus. This is nonspecific. 3. Distention of the stomach. 4. Transplanted kidney in the right lower quadrant. There is a 2.9 cm cyst at the inferior transplanted kidney. 5. Very extensive atherosclerotic calcifications seen throughout the arterial system. Derrek Lopez MD Chest X-Ray 11/04/16 0000 Signed Impressions: Service Date/Time: Friday, November 04, 2016 17:09 - CONCLUSION: Right base consolidation. Derrek Lopez MD Assessment and Plan Problem List: (1) Kidney transplant status, cadaveric Plan: Patient is a septic and required less immunosuppressive medication, unfortunately he has increase in the creatinine to 3.6 Likely he has sepsis induced kidney dysfunction possible ATN With ongoing nausea and vomiting, recurrent admissions, severe aortic stenosis I did discuss that his prognosis for the kidney does not look promising and he may require hemodialysis earlier than expected We will continue to monitor I will discontinue mycophenolate due to cryptococcal infection and now pneumonia. Monitor tacrolimus levels. (2) DM (diabetes mellitus) Plan: Follow blood glucose (3) Aortic stenosis Plan: He has severe aortic stenosis (4) Hypertension Plan: Monitor blood pressure (5) Pneumonia Plan: ID is following on Zosyn and fluconazole Problem Qualifiers (1) Pneumonia: Qualified Code: J18.9 - Pneumonia of right lung due to infectious organism, unspecified part of lung Stacy Dias MD Nov 05, 2016 19:50
[2016-11-05] MEDS: NIFEdipine 90 MG SUSTAINED RELEASE TAB PO SCH (20:21)
[2016-11-05] MEDS: LORazepam 1 MG TAB PO SCH (20:21)
[2016-11-05] MEDS: INSULIN DETEMIR 100 UNITS/ML VIAL SQ SCH (20:46)
[2016-11-05] MEDS: DOXYCYCLINE HYCLATE 100 MG TAB PO SCH (22:35)
[2016-11-06] VITALS (11 sets, daily range): BP systolic 112–132; BP diastolic 56–60; PULSE 59–73; RESP 18–20; TEMP 97.4–98.1; O2SAT 90–96
[2016-11-06] MEDS: RESP: ALBUTEROL 2.5 MG/IPRATROPIUM 0.5 MG NEB (SCH) INH ×4 (03:15→19:30)
[2016-11-06] MEDS: ACETAMINOPHEN/HYDROcodone 325 MG/10 MG TAB PO PRN ×3 (05:11→18:05)
[2016-11-06] MEDS: TACROLIMUS 1 MG CAP PO SCH ×2 (05:11→17:38)
[2016-11-06] MEDS: hydrALAZINE HCL 25 MG TAB PO SCH ×2 (05:11→14:00)
[2016-11-06] MEDS: PIPERACIL-TAZO 3.375 GM PREMIX 50 ML IV SCH ×2 (05:12→11:00)
[2016-11-06] MEDS: HEPARIN SODIUM - SQ 10,000 UNITS/ML VIAL SQ SCH (05:12)
[2016-11-06 05:31] LABS: AUTOMATED NEUTROPHIL # 5.8 TH/MM3 (1.8-7.7); BASOPHIL % 0.3 % (0.0-2.0); EOSINOPHIL % 0.3 % (0.0-4.0); HEMATOCRIT 31.6 % (39.0-51.0); HEMO FLAGS DIFF FINAL; LYMPH % 11.5 % (9.0-44.0); LYMPHOCYTE # 0.8 TH/MM3 (1.0-4.8); MEAN CELL VOLUME 82.8 FL (80.0-100.0); MEAN CORPUSCULAR HGB CONC 32.6 % (32.0-36.0); MONO % 8.4 % (0.0-8.0); NEUT % 79.5 % (16.0-70.0); PLATELET COUNT 157 TH/MM3 (150-450); RED BLOOD COUNT 3.81 MIL/MM3 (4.50-5.90); RED CELL DISTRIBUTION WIDTH 15.8 % (11.6-17.2); WHITE BLOOD COUNT 7.3 TH/MM3 (4.0-11.0)
[2016-11-06 05:56] LABS: BICARBONATE 22.3 MEQ/L (21.0-32.0); MAGNESIUM 2.2 MG/DL (1.5-2.5); POTASSIUM 4.5 MEQ/L (3.5-5.1)
--- NOTE | 2016-11-06 06:37 | MB ---
cc: [facility] DATE OF CONSULTATION 11/05/[address] Arana REASON FOR CONSULTATION Left side pneumonia. HISTORY OF PRESENT ILLNESS Mr. Abbott is a pleasant 66-year-old male with history of renal transplant. He has a history of end-stage renal disease. He was on dialysis for some time and then he had the transplant. He has history of hypertension and diabetes mellitus. The patient has not been feeling well and had shortness of breath getting worse over the last six months or so to the extent that he could barely walk inside the house. He also has history of gastroesophageal reflux disease and had EGD done last year. He was found to have Sam's esophagitis and colon polyp. He was recently admitted in this hospital and was found to have anemia. Now he has cough, a small amount of sputum production, does not have fever or chills. No night sweats. No nausea or vomiting. He had a workup done with a CT scan of the abdomen which shows he has a new large consolidation at the right hilum and infrahilar region, distension of the stomach, transplanted kidney in the right lower quadrant. His chest x-ray shows right basilar infiltrate. His CBC showed WBC count of 13.2, hemoglobin 10.9, hematocrit 33, MCV 82, platelet count 185. Sodium 130, potassium 4.8, chloride 97, CO2 21, BUN 79, creatinine 0.68. PAST MEDICAL HISTORY Significant for - 1. History of renal failure status post right kidney transplant. 2. History of hepatitis C treated at [facility]. 3. Bilateral carotid artery surgery. 4. History of fistula placement in the left arm. 5. COPD. 6. Neuropathy. 7. Diabetes mellitus. 8. Atrial fibrillation. MEDICATIONS The patient is current taking 1. Zosyn IV. 2. Clonidine 0.1 mg daily. 3. Ferrous sulfate 325 mg a day. 4. Imdur 30 mg a day. 5. Prednisone 5 mg a day. 6. Lyrica 25 mg three times a day. 7. Sodium bicarbonate 650 mg daily. 8. Spiriva once a day. 9. Diflucan q. 24 hours. 10. Albuterol/Atrovent nebulizer treatment. 11. Hydralazine 25 mg q. 8 hours. 12. Albuterol 100 mg twice a day. 13. Lorazepam 3 mg at night time. 14. Mycophenolate 500 mg twice a day. 15. Nifedipine 60 mg at nighttime. 16. Prograf 1 mg twice a day. ALLERGIES No known drug allergies. SOCIAL HISTORY He has history of smoking which he quit 15 years ago. Denies any drug use. 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 FAMILY HISTORY He is . He has two children and one stepchild. REVIEW OF SYSTEMS He has lost some weight, has shortness of breath on exertion, underlying COPD. Denies any coronary artery disease. He was recently found to have aortic stenosis. PHYSICAL EXAMINATION GENERAL: Moderately nourished, moderately developed male not in acute distress. VITAL SIGNS: Blood pressure 113/55, heart rate 59, respirations 22, temperature 98.5. HEENT EXAMINATION: The left pupil is larger than the right. He had surgery done on the left eye. NECK: Supple. JVP not raised. CHEST: He has rales at the right base. Respirations normal. ABDOMEN: Soft, nondistended. Bowel sounds are present. EXTREMITIES: No edema. IMPRESSION 1. Right lung pneumonia. The patient is immunocompromised because of his renal transplant. 2. History of recent fungemia. 3. Diabetes mellitus. 4. Hypertension. 5. Chronic kidney disease. 6. History of hepatitis C. 7. History of reflux. PLAN 1. We will send sputum for cultures and sensitivity. Also check for pneumococcal and Legionella urine antigen. 2. Continue his antibiotic of Zosyn and Diflucan. 3. The patient is planned for endoscopy. 4. We will check his sputum studies. 5. If he is not getting better, then we will consider bronchoscopy. 6. Infectious Disease consulted. Further treatment will depend on his course in the hospital. Thank you Dr. Arana for this consult. MD ARI Grady/SONA /6:16 PM /6:15 AM
[2016-11-06] MEDS: SODIUM BICARBONATE 650 MG TAB PO SCH (09:00)
[2016-11-06] MEDS: DOCUSATE SODIUM 50 MG/SENNA 8.6 MG TAB PO SCH ×2 (09:00→21:00)
[2016-11-06] MEDS: SODIUM CHLORIDE 0.9% FLUSH 10 ML FLUSH IV FLUSH SCH ×2 (09:00→21:54)
[2016-11-06] MEDS: LACTULOSE SYRUP 20 GM/30 ML CUP PO SCH (09:00)
[2016-11-06] MEDS: TIOTROPIUM BROMIDE 18 MCG INH INH SCH (09:00)
[2016-11-06] MEDS: POLYETHYLENE GLYCOL 17 GM PKG PO SCH (09:00)
[2016-11-06] MEDS: MULTIVITAMIN TAB PO SCH (09:10)
[2016-11-06] MEDS: LABETALOL HCL 100 MG TAB PO SCH ×2 (09:10→21:53)
[2016-11-06] MEDS: PREGABALIN 25 MG CAP PO SCH ×3 (09:11→21:52)
[2016-11-06] MEDS: predniSONE 5 MG TAB PO SCH (09:11)
[2016-11-06] MEDS: FERROUS SULFATE 325 MG (65 MG ELEMENTAL IRON) TAB PO SCH (09:11)
[2016-11-06] MEDS: ISOSORBIDE MONONITRATE 30 MG TAB PO SCH (09:12)
[2016-11-06] MEDS: cloNIDine HCL 0.1 MG TAB PO SCH (09:12)
[2016-11-06] MEDS: DOXYCYCLINE HYCLATE 100 MG TAB PO SCH ×2 (09:12→21:53)
[2016-11-06] MEDS: FLUCONAZOLE 200 MG IV SCH (09:13)
[2016-11-06] MEDS: ONDANSETRON HCL 4 MG/2 ML VIAL IV PRN ×2 (12:45→18:30)
--- NOTE | 2016-11-06 15:45 | HHI.PR ---
Subjective Remarks 66 YOWM with Renal transplant, CKD,CHF, On NC No Fever Cough, not able to expactorate Objective Vital Signs Vital Signs Date Time Temp Pulse Resp B/P Pulse Ox O2 Delivery O2 Flow Rate FiO2 11/06/16 13:37 96 Nasal Cannula 3.00 11/06/16 10:04 96 Nasal Cannula 3.00 11/06/16 09:00 98.0 66 20 113/58 93 11/06/16 09:00 94 Nasal Cannula 4.00 Humidified 11/06/16 09:00 73 11/06/16 04:00 97.7 61 18 119/57 93 11/06/16 04:00 Nasal Cannula 4.00 11/06/16 03:17 90 Nasal Cannula 4.00 11/06/16 00:00 Nasal Cannula 4.00 11/06/16 00:00 98.1 59 18 115/58 96 11/05/16 20:13 Nasal Cannula 4.00 11/05/16 20:00 Nasal Cannula 4.00 11/05/16 20:00 67 11/05/16 20:00 97.7 69 18 115/59 97 11/05/16 16:00 98.5 59 20 113/55 95 I/O 11/05/16 11/05/16 11/05/16 11/06/16 11/06/16 11/06/16 07:00 15:00 23:00 07:00 15:00 23:00 Intake Total 240 ml 360 ml 1065 ml 290 ml Output Total 300 ml 400 ml 200 ml 350 ml Balance -60 ml -40 ml 865 ml -60 ml Intake Oral 240 ml 360 ml 700 ml 240 ml IV Total 365 ml 50 ml Output Urine Total 300 ml 400 ml 200 ml 350 ml # Bowel Movements 1 6 Result Diagram: 11/06/16 0457 11/06/16 0457 Objective Remarks GENERAL: MBMN, NAD SKIN: Warm and dry. HEAD: Normocephalic. EYES: No scleral icterus. No injection or drainage. NECK: Supple, trachea midline. No JVD or lymphadenopathy. CARDIOVASCULAR: Regular rate and rhythm without murmurs, gallops, or rubs. RESPIRATORY: Breath sounds equal bilaterally. No accessory muscle use. rales at right base GASTROINTESTINAL: Abdomen soft, non-tender, nondistended. MUSCULOSKELETAL: No cyanosis, or edema. BACK: Nontender without obvious deformity. No CVA tenderness. A/P Assessment and Plan Right pushpa Pneumonia renal Transplant CKD CHF PLAN: Cont Abx per ID Supplement [address] Centeno Going for EGD If not better, will need bronch for diagnosis Pravin Ward MD Nov 06, 2016 15:45
--- NOTE | 2016-11-06 16:30 | HHI.NPPN ---
Subjective History of Present Illness 66-year-old with nausea vomiting abdominal pain: The cryptococcal infection Review of Systems General Constitutional: Fatigue Objective Data Data 11/05/16 11/06/16 19:00 07:00 Intake Total 360 ml 1355 ml Output Total 400 ml 550 ml Balance -40 ml 805 ml Intake Oral 360 ml 940 ml IV Total 415 ml Output Urine Total 400 ml 550 ml # Bowel Movements 6 Vital Signs Date Time Temp Pulse Resp B/P Pulse Ox O2 Delivery O2 Flow Rate FiO2 11/06/16 13:37 96 Nasal Cannula 3.00 11/06/16 10:04 96 Nasal Cannula 3.00 11/06/16 09:00 98.0 66 20 113/58 93 11/06/16 09:00 94 Nasal Cannula 4.00 Humidified 11/06/16 09:00 73 11/06/16 04:00 97.7 61 18 119/57 93 11/06/16 04:00 Nasal Cannula 4.00 11/06/16 03:17 90 Nasal Cannula 4.00 11/06/16 00:00 Nasal Cannula 4.00 11/06/16 00:00 98.1 59 18 115/58 96 11/05/16 20:13 Nasal Cannula 4.00 11/05/16 20:00 Nasal Cannula 4.00 11/05/16 20:00 67 11/05/16 20:00 97.7 69 18 115/59 97 -: 11/06/16 0457 11/06/16 0457 Microbiology 11/05/16 Gram Stain - Final, Resulted 11/05/16 Sputum Culture, Resulted Pending 11/05/16 Acid Fast Stain, Received Pending 11/05/16 Mycobacterial Culture, Received Pending 11/05/16 Fungal Smear - Final, Resulted NO FUNGAL ELEMENTS SEEN. 11/05/16 Fungal Culture, Resulted Pending 11/05/16 Legionella Antigen - Final, Complete PRESUMPTIVE NEGATIVE FOR LEGIONELLA P... 11/05/16 Streptococcus pneumoniae Antigen (M - Final, Complete PRESUMPTIVE NEGATIVE FOR STREPTOCOCCU... Physical Exam General Appearance: Well Developed Neck Neck Exam: Neck Supple Pulmonary Resp Exam: Decreased Bases Cardiology CV Exam: Regular, Murmur Gastrointestinal/Abdomen GI Exam: Soft, Non-Tender, Bowel Sounds Present Integumentary Skin Exam: Clear Extremeties Extremities Exam: Trace Edema Neurologic Neuro Exam: Alert Assessment/Plan Problem List: (1) Kidney transplant status, cadaveric Plan: Patient is a septic and required less immunosuppressive medication, unfortunately he has increase in the creatinine to 3.9 Likely he has sepsis induced kidney dysfunction possible ATN he may require hemodialysis earlier than expected We will continue to monitor I will discontinue mycophenolate due to cryptococcal infection and now pneumonia. Restart Lasix (2) DM (diabetes mellitus) Plan: Follow blood glucose (3) Aortic stenosis Plan: He has severe aortic stenosis (4) Hypertension Plan: Monitor blood pressure (5) Pneumonia Plan: ID is following on Zosyn and fluconazole Problem Qualifiers (1) Pneumonia: Qualified Code: J18.9 - Pneumonia of right lung due to infectious organism, unspecified part of lung Stacy Dias MD Nov 06, 2016 16:30
--- NOTE | 2016-11-06 17:35 | HHI.IDPN ---
Subjective Subjective Remarks Failing kidney fnx creatinine up tot 3.90 today afebrile, but has fever/chills + reflux + constipation + RLQ discomfort co chest congestion still unable to expectorate Antibiotics zosyn doxycycline fluconazole Allergies: Coded Allergies: No Known Allergies (Unverified , 11/04/16) Objective . Vital Signs Date Time Temp Pulse Resp B/P Pulse Ox O2 Delivery O2 Flow Rate FiO2 11/06/16 13:37 96 Nasal Cannula 3.00 11/06/16 10:04 96 Nasal Cannula 3.00 11/06/16 09:00 98.0 66 20 113/58 93 11/06/16 09:00 94 Nasal Cannula 4.00 Humidified 11/06/16 09:00 73 11/06/16 04:00 97.7 61 18 119/57 93 11/06/16 04:00 Nasal Cannula 4.00 11/06/16 03:17 90 Nasal Cannula 4.00 11/06/16 00:00 Nasal Cannula 4.00 11/06/16 00:00 98.1 59 18 115/58 96 11/05/16 20:13 Nasal Cannula 4.00 11/05/16 20:00 Nasal Cannula 4.00 11/05/16 20:00 67 11/05/16 20:00 97.7 69 18 115/59 97 11/05/16 11/05/16 11/06/16 15:00 23:00 07:00 Intake Total 360 ml 1065 ml 290 ml Output Total 400 ml 200 ml 350 ml Balance -40 ml 865 ml -60 ml Intake Oral 360 ml 700 ml 240 ml IV Total 365 ml 50 ml Output Urine Total 400 ml 200 ml 350 ml # Bowel Movements 6 . Laboratory Tests Test 11/05/16 11/06/16 04:20 04:57 White Blood Count 13.2 TH/MM3 7.3 TH/MM3 Red Blood Count 3.99 MIL/MM3 3.81 MIL/MM3 Hemoglobin 10.9 GM/DL 10.3 GM/DL Hematocrit 33.0 % 31.6 % Mean Corpuscular Volume 82.9 FL 82.8 FL Mean Corpuscular Hemoglobin 27.4 PG 27.0 PG Mean Corpuscular Hemoglobin 33.1 % 32.6 % Concent Red Cell Distribution Width 15.4 % 15.8 % Platelet Count 185 TH/MM3 157 TH/MM3 Mean Platelet Volume 9.2 FL 9.3 FL Neutrophils (%) (Auto) 85.6 % 79.5 % Lymphocytes (%) (Auto) 7.5 % 11.5 % Monocytes (%) (Auto) 6.7 % 8.4 % Eosinophils (%) (Auto) 0.0 % 0.3 % Basophils (%) (Auto) 0.2 % 0.3 % Neutrophils # (Auto) 11.3 TH/MM3 5.8 TH/MM3 Lymphocytes # (Auto) 1.0 TH/MM3 0.8 TH/MM3 Monocytes # (Auto) 0.9 TH/MM3 0.6 TH/MM3 Eosinophils # (Auto) 0.0 TH/MM3 0.0 TH/MM3 Basophils # (Auto) 0.0 TH/MM3 0.0 TH/MM3 CBC Comment DIFF FINAL DIFF FINAL Differential Comment Laboratory Tests Test 11/05/16 11/06/16 04:20 04:57 Sodium Level 130 MEQ/L 130 MEQ/L Potassium Level 4.8 MEQ/L 4.5 MEQ/L Chloride Level 97 MEQ/L 97 MEQ/L Carbon Dioxide Level 21.1 MEQ/L 22.3 MEQ/L Anion Gap 12 MEQ/L 11 MEQ/L Blood Urea Nitrogen 79 MG/DL 86 MG/DL Creatinine 3.68 MG/DL 3.90 MG/DL Estimat Glomerular Filtration 17 ML/MIN 16 ML/MIN Rate Random Glucose 176 MG/DL 184 MG/DL Calcium Level 9.5 MG/DL 8.9 MG/DL B-Type Natriuretic Peptide 2241 PG/ML Phosphorus Level 4.8 MG/DL Magnesium Level 2.2 MG/DL Microbiology Date/Time Procedure Status Source Growth 11/04/16 13:15 Legionella Antigen - Final Complete Urine Clean Catch PRESUMPTIVE NEGATIVE FOR LEGIONELLA P... 11/04/16 14:05 Aerobic Blood Culture - Preliminary Resulted Blood Peripheral NO GROWTH IN 2 DAYS 11/04/16 14:05 Anaerobic Blood Culture - Preliminary Resulted Blood Peripheral NO GROWTH IN 2 DAYS 11/04/16 14:15 Aerobic Blood Culture - Preliminary Resulted Blood Peripheral NO GROWTH IN 2 DAYS 11/04/16 14:15 Anaerobic Blood Culture - Preliminary Resulted Blood Peripheral NO GROWTH IN 2 DAYS 11/05/16 18:15 Cancelled Urine Random Urine 11/05/16 19:25 Gram Stain - Final Resulted Sputum Expectorated Sputum 11/05/16 19:25 Sputum Culture - Preliminary Resulted Sputum Expectorated Sputum IMMATURE GROWTH - REINCUBATE 11/05/16 19:25 Acid Fast Stain Received Sputum Expectorated Sputum Pending 11/05/16 19:25 Mycobacterial Culture Received Sputum Expectorated Sputum Pending 11/05/16 19:25 Fungal Smear - Final Resulted Sputum Expectorated Sputum NO FUNGAL ELEMENTS SEEN. 11/05/16 19:25 Fungal Culture Resulted Sputum Expectorated Sputum Pending 11/05/16 20:30 Legionella Antigen - Final Complete Urine Random Urine PRESUMPTIVE NEGATIVE FOR LEGIONELLA P... 11/05/16 20:30 Streptococcus pneumoniae Antigen (M - Final Complete Urine Random Urine PRESUMPTIVE NEGATIVE FOR STREPTOCOCCU... Imaging Last Impressions Abdomen/Pelvis CT 11/04/16 1248 Signed Impressions: Service Date/Time: Friday, November 04, 2016 14:45 - CONCLUSION: 1. New large consolidation seen at the right hilar and infrahilar region. 2. Mild thickening of the distal esophagus. This is nonspecific. 3. Distention of the stomach. 4. Transplanted kidney in the right lower quadrant. There is a 2.9 cm cyst at the inferior transplanted kidney. 5. Very extensive atherosclerotic calcifications seen throughout the arterial system. Derrek Lopez MD Chest X-Ray 11/04/16 0000 Signed Impressions: Service Date/Time: Friday, November 04, 2016 17:09 - CONCLUSION: Right base consolidation. Derrek Lopez MD Physical Exam CONSTITUTIONAL/GENERAL: This is an adequately nourished patient, in no apparent distress. TUBES/LINES/DRAINS: SKIN: No jaundice, rashes, or lesions. Skin temperature appropriate. Not diaphoretic. EYES: Pupils equal and round and reactive. Extraocular motions intact. No scleral icterus. No injection or drainage. ENT: Hearing grossly normal. Oral mucosae at without visible erythema, exudates , masses, or lesions. NECK: Trachea midline. Supple, nontender. N CARDIOVASCULAR: Regular rate and rhythm + 3/6 holosystolic harsh murmur with max on RUSB no , gallops, or rubs. No JVD. Peripheral pulses symmetric. RESPIRATORY/CHEST: Symmetric, unlabored respirations. Clear to auscultation. Breath sounds equal bilaterally. No wheezes, rales, or rhonchi. GASTROINTESTINAL: Abdomen soft, non-tender, + mildly to moderately distended. No hepato-splenomegaly, + slightly tender palpable sixto in RLQ cw allograft. No guarding. Bowel sounds present. GENITOURINARY: Without palpable bladder distension. MUSCULOSKELETAL: Extremities without clubbing, cyanosis, or edema. No joint tenderness or effusion noted. No calf tenderness. No mottling or clubbing. L hallux with well healed nail bed, no edema, erythema LYMPHATICS: No palpable cervical or supraclavicular adenopathy. NEUROLOGICAL: Awake and alert. Motor and sensory grossly within normal limits. Follows commands. Clear speech. Moves all extremities. PSYCHIATRIC: calm , cooperative Assessment & Plan Remarks PNA ? ethiology ? cryptococcus, vs bacterial vs other fungi vs other (viruses, atypical mycobacterial) ? 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, worsening renal fnx - poor prognosis for allograft function Nausea, vpmiting, distal esophageal thickening, known Sam's Diarrhea, abx associated Aortic stenosis Severe CHF Multiple med problems cont high dose fluconazole 800-1200 (will be 400-600 renally adjusted) cont broad spectrum abx - adjust zosyn obtaine sputum - will consult ulmonalgist since pt is not expectorating , will need early bronch fu blood clx fu sputum clx, including ABFB, fungal fu MTB PCR, dc isolation if negative fu crypto serology In case of confirmes crypto recurrentce and clinical deterioration will needd to be switche d to Amphothericin B, however this will put him in tremendous risk of loosing transplant and should be only reserved for last resort cont doxycyline for atypical coverage dw Dr Sylvia Centeno,Nancy Alexis MD Nov 06, 2016 17:35
[2016-11-06 17:38] LABS: M. TUBERCULOSIS PCR NOT DETECTED (NOT DETECT)
[2016-11-06] MEDS: PIPERACIL-TAZO 2.25 GM PREMIX 50 ML IV SCH (17:38)
[2016-11-06] MEDS: FUROSEMIDE 20 MG TAB PO SCH (17:38)
--- NOTE | 2016-11-06 17:52 | HHI.PR ---
Subjective Remarks Patient seen earlier today, at the bedside He still have a dry cough, no fever or chills, Still complaining of worsening dysphagia with any oral intake Seen by campus ambassador, trying to get a sputum sample for diagnostic purpose, but if not will need ABL Objective Vitals Vital Signs Date Time Temp Pulse Resp B/P Pulse Ox O2 Delivery O2 Flow Rate FiO2 11/06/16 13:37 96 Nasal Cannula 3.00 11/06/16 10:04 96 Nasal Cannula 3.00 11/06/16 09:00 98.0 66 20 113/58 93 11/06/16 09:00 94 Nasal Cannula 4.00 Humidified 11/06/16 09:00 73 11/06/16 04:00 97.7 61 18 119/57 93 11/06/16 04:00 Nasal Cannula 4.00 11/06/16 03:17 90 Nasal Cannula 4.00 11/06/16 00:00 Nasal Cannula 4.00 11/06/16 00:00 98.1 59 18 115/58 96 11/05/16 20:13 Nasal Cannula 4.00 11/05/16 20:00 Nasal Cannula 4.00 11/05/16 20:00 67 11/05/16 20:00 97.7 69 18 115/59 97 I/O 11/05/16 11/05/16 11/05/16 11/06/16 11/06/16 11/06/16 07:00 15:00 23:00 07:00 15:00 23:00 Intake Total 240 ml 360 ml 1065 ml 290 ml Output Total 300 ml 400 ml 200 ml 350 ml Balance -60 ml -40 ml 865 ml -60 ml Intake Oral 240 ml 360 ml 700 ml 240 ml IV Total 365 ml 50 ml Output Urine Total 300 ml 400 ml 200 ml 350 ml # Bowel Movements 1 6 Result Diagram: 11/06/16 0457 11/06/16 0457 Objective Remarks GENERAL: This is a well-nourished, well-developed patient, in no apparent distress. SKIN: No rashes, warm and dry HEAD: Atraumatic. Normocephalic. EYES: Pupils equal round and reactive. Extraocular motions intact. No scleral icterus. ENT: Nose without bleeding, or drainage, Airway patent. NECK: Trachea midline. Supple CARDIOVASCULAR: Regular rate and rhythm without murmurs, gallops, or rubs. RESPIRATORY: Decreased breath sounds on the right base GASTROINTESTINAL: Abdomen soft, non-tender, nondistended. Positive bowel sounds MUSCULOSKELETAL: Extremities without clubbing, cyanosis, or edema. Pedal pulses appreciated NEUROLOGICAL: Awake and alert. Moves all extremity. Normal speech.no focal neurological deficit A/P Problem List: (1) Sepsis ICD Code: A41.9 Status: Acute (2) Aortic stenosis ICD Code: I35.0 Status: Chronic (3) FRANTZ (acute kidney injury) ICD Code: N17.9 Status: Acute (4) Constipation ICD Code: K59.00 Status: Acute (5) IDDM (insulin dependent diabetes mellitus) ICD Code: E11.9 Status: Chronic (6) HAP (hospital-acquired pneumonia) ICD Code: J18.9 Status: Acute Assessment and Plan This is a 66-year-old male with history of congestive heart failure, cardiomyopathy, aortic stenosis, chronic kidney disease status post kidney transplant, diabetes mellitus, and recent fungemia, presenting back to the hospital with nausea, vomiting, constipation and cough. 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 Dysphagia for the last 2 weeks(not able to hold any food) history of Sam's syndrome, last EGD a year ago FRANTZ on CKD status post kidney transplant patient on mycophenolate and is on tacrolimus Hypertension Diabetes mellitus History of CHF, ACS, DF 35% plan for TAVR as an outpatient DVT prophylaxis with heparin Plan: Appreciate pulmonology input, plan for ABL if sputum sample is not sufficient Appreciate GI consultation, EGD Saturday Appreciate nephrology consultation, will hold mycophenolate for now due to cryptococcus infection, patient may need hemodialysis earlier than expected Continue iv antibiotic per ID, discussed with Dr. Centeno if found to be cryptococcus pneumonia patient will need micafungin which will be high risk for graft kidney injury O2 DuoNeb Diflucan Sputum culture, urine antigen for Legionella and pneumococcus Hold Lasix Continue prednisone , tacrolimus Aaron Arana MD Nov 06, 2016 17:52
[2016-11-06] MEDS: NIFEdipine 90 MG SUSTAINED RELEASE TAB PO SCH (21:53)
[2016-11-06] MEDS: LORazepam 1 MG TAB PO SCH (21:54)
[2016-11-06] MEDS: INSULIN DETEMIR 100 UNITS/ML VIAL SQ SCH (21:56)
[2016-11-07] VITALS (13 sets, daily range): BP systolic 129–143; BP diastolic 60–90; PULSE 56–66; RESP 16–20; TEMP 97.3–98; O2SAT 89–97
[2016-11-07] MEDS: PIPERACIL-TAZO 2.25 GM PREMIX 50 ML IV SCH ×3 (00:39→12:27)
[2016-11-07] MEDS: hydrALAZINE HCL 25 MG TAB PO SCH ×4 (00:50→21:01)
[2016-11-07] MEDS: RESP: ALBUTEROL 2.5 MG/IPRATROPIUM 0.5 MG NEB (SCH) INH ×4 (03:45→21:14)
[2016-11-07] MEDS: TACROLIMUS 1 MG CAP PO SCH ×2 (06:21→17:34)
[2016-11-07] MEDS: ACETAMINOPHEN/HYDROcodone 325 MG/10 MG TAB PO PRN (06:22)
[2016-11-07 08:19] LABS: AUTOMATED NEUTROPHIL # 5.1 TH/MM3 (1.8-7.7); BASOPHIL # 0.1 TH/MM3 (0-0.2); EOSINOPHIL % 0.2 % (0.0-4.0); HEMO FLAGS DIFF FINAL; LYMPH % 11.2 % (9.0-44.0); LYMPHOCYTE # 0.7 TH/MM3 (1.0-4.8); MEAN CORPUSCULAR HEMOGLOBIN 27.6 PG (27.0-34.0); MEAN CORPUSCULAR HGB CONC 33.3 % (32.0-36.0); MONO % 9.1 % (0.0-8.0); NEUT % 78.5 % (16.0-70.0); PLATELET COUNT 176 TH/MM3 (150-450); RED BLOOD COUNT 3.86 MIL/MM3 (4.50-5.90); RED CELL DISTRIBUTION WIDTH 15.6 % (11.6-17.2); WHITE BLOOD COUNT 6.5 TH/MM3 (4.0-11.0)
[2016-11-07 08:45] LABS: BICARBONATE 17.7 MEQ/L (21.0-32.0); POTASSIUM 4.7 MEQ/L (3.5-5.1)
[2016-11-07] MEDS: TIOTROPIUM BROMIDE 18 MCG INH INH SCH (09:00)
[2016-11-07] MEDS: DOCUSATE SODIUM 50 MG/SENNA 8.6 MG TAB PO SCH ×2 (09:00→20:33)
[2016-11-07] MEDS ORDERED: PROPOFOL 200 MG/20 ML AMP IV ONE (10:43)
--- NOTE | 2016-11-07 11:09 | HHI.GIFU ---
Subjective Remarks Immediate postop note: EGD with esophageal dilatation over guidewire with biopsy Indication: GERD and dysphagia Meds: MAC Findings: Esophagus: moderate erosive esophagitis, with distal stricture. Dilated with 15mm savary dilator Stomach: dilated, copious liquid remaining in stomach. Some pills as well. Pylorus open and patent. Biopsy taken from antrum. Duodenum: normal Objective Vitals I&O Vital Signs Date Time Temp Pulse Resp B/P Pulse Ox O2 Delivery O2 Flow Rate FiO2 11/07/16 10:26 97.6 62 16 131/62 91 11/07/16 08:01 97.6 62 20 131/62 91 11/07/16 08:00 Nasal Cannula 3.00 11/07/16 07:51 59 11/07/16 04:00 97.7 57 18 130/90 90 11/07/16 03:47 90 Nasal Cannula 3.00 11/07/16 03:20 56 11/07/16 00:05 64 11/07/16 00:00 98.0 66 20 129/61 89 11/06/16 22:53 20 11/06/16 21:30 Nasal Cannula 3.00 11/06/16 20:03 67 11/06/16 20:00 97.7 68 18 132/60 92 11/06/16 19:36 95 Nasal Cannula 3.00 11/06/16 19:05 20 11/06/16 16:00 97.4 63 18 123/60 91 11/06/16 13:37 96 Nasal Cannula 3.00 11/06/16 12:00 97.4 62 18 112/56 95 I/O 11/06/16 11/06/16 11/06/16 11/07/16 11/07/16 11/07/16 07:00 15:00 23:00 07:00 15:00 23:00 Intake Total 290 ml 900 ml 100 ml Output Total 350 ml 275 ml 250 ml 500 ml Balance -60 ml 625 ml -250 ml -400 ml Intake Oral 240 ml 900 ml IV Total 50 ml 100 ml Output Urine Total 350 ml 275 ml 250 ml 500 ml # Bowel Movements 0 Laboratory Laboratory Tests Test 11/07/16 07:17 White Blood Count 6.5 Red Blood Count 3.86 Hemoglobin 10.7 Hematocrit 32.0 Mean Corpuscular Volume 83.0 Mean Corpuscular Hemoglobin 27.6 Mean Corpuscular Hemoglobin 33.3 Concent Red Cell Distribution Width 15.6 Platelet Count 176 Mean Platelet Volume 9.8 Neutrophils (%) (Auto) 78.5 Lymphocytes (%) (Auto) 11.2 Monocytes (%) (Auto) 9.1 Eosinophils (%) (Auto) 0.2 Basophils (%) (Auto) 1.0 Neutrophils # (Auto) 5.1 Lymphocytes # (Auto) 0.7 Monocytes # (Auto) 0.6 Eosinophils # (Auto) 0.0 Basophils # (Auto) 0.1 CBC Comment DIFF FINAL Differential Comment Sodium Level 129 Potassium Level 4.7 Chloride Level 95 Carbon Dioxide Level 17.7 Anion Gap 16 Blood Urea Nitrogen 88 Creatinine 3.88 Estimat Glomerular Filtration 16 Rate Random Glucose 182 Calcium Level 9.6 Phosphorus Level 5.0 Date/Time Procedure Status Source Growth 11/05/16 20:30 Legionella Antigen - Final Complete Urine Random Urine PRESUMPTIVE NEGATIVE FOR LEGIONELLA P... 11/05/16 20:30 Streptococcus pneumoniae Antigen (M - Final Complete Urine Random Urine PRESUMPTIVE NEGATIVE FOR STREPTOCOCCU... 11/05/16 19:25 Gram Stain - Final Resulted Sputum Expectorated Sputum 11/05/16 19:25 Sputum Culture - Preliminary Resulted Sputum Expectorated Sputum IMMATURE GROWTH - REINCUBATE 11/05/16 19:25 Fungal Smear - Final Resulted Sputum Expectorated Sputum NO FUNGAL ELEMENTS SEEN. 11/05/16 19:25 Fungal Culture Resulted Sputum Expectorated Sputum Pending 11/05/16 19:25 Acid Fast Stain Received Sputum Expectorated Sputum Pending 11/05/16 19:25 Mycobacterial Culture Received Sputum Expectorated Sputum Pending 11/05/16 18:15 Cancelled Urine Random Urine 11/04/16 14:15 Aerobic Blood Culture - Preliminary Resulted Blood Peripheral NO GROWTH IN 2 DAYS 11/04/16 14:15 Anaerobic Blood Culture - Preliminary Resulted Blood Peripheral NO GROWTH IN 2 DAYS Physical Exam HEENT: Pupils round and reactive to light; normocephalic; atraumatic; no jaundice. Throat is clear. NECK: Neck is supple, no JVD, no lymphadenopathy. CHEST: Chest is clear to auscultation and percussion. CARDIAC: Regular rate and rhythm with no murmur gallop or rubs. ABDOMEN: Soft, nondistended, nontender; no hepatosplenomegaly; bowel sounds are present in all four quadrants. EXTREMITIES: No clubbing, cyanosis, or edema. SKIN: Normal; no rash; no jaundice. RN TELEHEALTH: No focal deficits; alert and oriented times three. Assessment and Plan Plan ASSESSMENT - acid reflux, n/v - severe, regurgitating acid after eating, sporadic vomiting. 1 x episode hematemesis, none prior or since. - anemia - 12.0 on admission, currently 10.9 - sepsis - PNA HCAP vs cryptococcus, per primary. ID following - FRANTZ on CKD - s/p kidney transplant, on tacrolimus & mycophenolate, per primary - EGD with dilatation and biopsy on 11/07 shows erosive esophagitis and distal stricture, with possible gastroparesis. Biopsies taken from antrum. Dilated with 15mm savary dilator PLAN -Resume regular diet. - monitor labs - PPI bid -Nuc med gastric emptying study - Consider reglan 10mg qid Quinn Everett MD Nov 07, 2016 11:09
[2016-11-07 11:53] LABS: CRYPTOCOCCUS ANTIGEN Negative (Negative)
[2016-11-07] MEDS ORDERED: PHENYLEPH/NS 1000 MCG/10 ML SYR IV ONE (12:00)
[2016-11-07] MEDS: FLUCONAZOLE 200 MG IV SCH (12:24)
[2016-11-07] MEDS: predniSONE 5 MG TAB PO SCH (12:25)
[2016-11-07] MEDS: LACTULOSE SYRUP 20 GM/30 ML CUP PO SCH (12:25)
[2016-11-07] MEDS: FUROSEMIDE 20 MG TAB PO SCH ×2 (12:25→17:34)
[2016-11-07] MEDS: SODIUM BICARBONATE 650 MG TAB PO SCH (12:25)
[2016-11-07] MEDS: MULTIVITAMIN TAB PO SCH (12:25)
[2016-11-07] MEDS: LABETALOL HCL 100 MG TAB PO SCH ×2 (12:26→20:33)
[2016-11-07] MEDS: ISOSORBIDE MONONITRATE 30 MG TAB PO SCH (12:26)
[2016-11-07] MEDS: cloNIDine HCL 0.1 MG TAB PO SCH (12:26)
[2016-11-07] MEDS: FERROUS SULFATE 325 MG (65 MG ELEMENTAL IRON) TAB PO SCH (12:26)
[2016-11-07] MEDS: DOXYCYCLINE HYCLATE 100 MG TAB PO SCH ×2 (12:26→20:33)
[2016-11-07] MEDS: PREGABALIN 25 MG CAP PO SCH ×3 (12:26→17:34)
[2016-11-07] MEDS: SODIUM CHLORIDE 0.9% FLUSH 10 ML FLUSH IV FLUSH SCH ×2 (12:27→20:34)
[2016-11-07] MEDS: POLYETHYLENE GLYCOL 17 GM PKG PO SCH (12:28)
--- NOTE | 2016-11-07 12:39 | MR ---
cc: QUINN EVERETT MD,VANNESA ROBISON DATE OF PROCEDURE 11/07/2016 PROCEDURE Esophagogastroduodenoscopy with esophageal dilatation over guidewire with biopsy. INDICATION Gastroesophageal reflux disease and dysphagia. REQUESTING PHYSICIAN Referred by Dr. Arana. PROCEDURE After informed consent was obtained, the patient is placed in the left side down position. He was sedated by the anesthesia service. After adequate sedation was achieved, the Pentax video gastroscope was inserted in the oropharynx, advanced through the esophagus and into the stomach. In the stomach there was copious liquid food remaining, also some pills. This was aspirated completely as well as possible. The scope was then advanced around the greater curvature reaching the pylorus, just barely entering into the pylorus and then manipulated down into the descending duodenum. It was then slowly withdrawn, examining the mucosal surfaces carefully. Biopsies were obtained in the gastric antrum. A guidewire was left in place in the antrum as the scope was slowly withdrawn. Over the guidewire a 15-mm Savary dilator was passed down through the esophagus with some resistance. The dilator was then removed along with the guidewire. A re-look examination was performed with the scope entering into the stomach. There was no apparent complication. The scope was then withdrawn and the procedure was terminated. He tolerated the procedure well and was returned to the recovery area in good condition. FINDINGS 1. In the esophagus there was moderate erosive esophagitis with a distal stricture. This was dilated with a 15-mm Savary dilator and re-look showed no evidence of complication. 2. In the stomach there was copious liquid remaining in a dilated stomach. Some pills were present as well. The pylorus was open and patent. A biopsy was taken from the gastric antrum. 3. The duodenum was normal. IMPRESSION 1. Gastroesophageal reflux disease. 2. Gastritis. 3. Gastroparesis. 4. Erosive esophagitis with stricture dilated to 15 mm. A more aggressive dilatation could not be performed because of the erosive esophagitis. RECOMMENDATIONS 1. He may resume a regular diet. 1. We will continue to monitor his labs. 2. He should be on proton pump inhibitor b.i.d. intravenously. 3. He should obtain a nuclear medicine gastric emptying study. These have been ordered. 4. Consideration could be given to Reglan 10 mg q.i.d. if the gastric emptying scan is positive for delay. Quinn Everett MD [facility] /11:29 AM /12:26 PM
[2016-11-07] MEDS: ONDANSETRON HCL 4 MG/2 ML VIAL IV PRN (13:00)
[2016-11-07] MEDS ORDERED: MORPHINE SULFATE 4 MG/ML INJ IV PRN (14:00)
[2016-11-07] MEDS: MORPHINE SULFATE 4 MG/ML INJ IV PRN ×2 (14:16→18:22)
--- NOTE | 2016-11-07 15:33 | HHI.IDPN ---
Subjective Subjective Remarks Not doing well Increasing SOB, with 6 L of O2 now co SOB, congestion co abdominal pain No UOP Antibiotics zosyn doxycycline fluconazole Allergies: Coded Allergies: No Known Allergies (Unverified , 11/04/16) Objective . Vital Signs Date Time Temp Pulse Resp B/P Pulse Ox O2 Delivery O2 Flow Rate FiO2 11/07/16 12:26 91 Nasal Cannula 6.00 11/07/16 12:01 97.3 64 19 143/65 97 11/07/16 11:22 63 18 134/56 90 11/07/16 11:12 64 18 131/65 87 11/07/16 11:02 97.7 61 18 121/58 89 11/07/16 10:26 97.6 62 16 131/62 91 11/07/16 08:01 97.6 62 20 131/62 91 11/07/16 08:00 Nasal Cannula 3.00 11/07/16 07:51 59 11/07/16 04:00 97.7 57 18 130/90 90 11/07/16 03:47 90 Nasal Cannula 3.00 11/07/16 03:20 56 11/07/16 00:05 64 11/07/16 00:00 98.0 66 20 129/61 89 11/06/16 22:53 20 11/06/16 21:30 Nasal Cannula 3.00 11/06/16 20:03 67 11/06/16 20:00 97.7 68 18 132/60 92 11/06/16 19:36 95 Nasal Cannula 3.00 11/06/16 19:05 20 11/06/16 16:00 97.4 63 18 123/60 91 11/06/16 11/06/16 11/07/16 15:00 23:00 07:00 Intake Total 900 ml 100 ml Output Total 275 ml 250 ml 500 ml Balance 625 ml -250 ml -400 ml Intake Oral 900 ml IV Total 100 ml Output Urine Total 275 ml 250 ml 500 ml # Bowel Movements 0 . Laboratory Tests Test 11/06/16 11/07/16 04:57 07:17 White Blood Count 7.3 TH/MM3 6.5 TH/MM3 Red Blood Count 3.81 MIL/MM3 3.86 MIL/MM3 Hemoglobin 10.3 GM/DL 10.7 GM/DL Hematocrit 31.6 % 32.0 % Mean Corpuscular Volume 82.8 FL 83.0 FL Mean Corpuscular Hemoglobin 27.0 PG 27.6 PG Mean Corpuscular Hemoglobin 32.6 % 33.3 % Concent Red Cell Distribution Width 15.8 % 15.6 % Platelet Count 157 TH/MM3 176 TH/MM3 Mean Platelet Volume 9.3 FL 9.8 FL Neutrophils (%) (Auto) 79.5 % 78.5 % Lymphocytes (%) (Auto) 11.5 % 11.2 % Monocytes (%) (Auto) 8.4 % 9.1 % Eosinophils (%) (Auto) 0.3 % 0.2 % Basophils (%) (Auto) 0.3 % 1.0 % Neutrophils # (Auto) 5.8 TH/MM3 5.1 TH/MM3 Lymphocytes # (Auto) 0.8 TH/MM3 0.7 TH/MM3 Monocytes # (Auto) 0.6 TH/MM3 0.6 TH/MM3 Eosinophils # (Auto) 0.0 TH/MM3 0.0 TH/MM3 Basophils # (Auto) 0.0 TH/MM3 0.1 TH/MM3 CBC Comment DIFF FINAL DIFF FINAL Differential Comment Eosinophil Count 0 /MM3 Laboratory Tests Test 11/06/16 11/07/16 04:57 07:17 Sodium Level 130 MEQ/L 129 MEQ/L Potassium Level 4.5 MEQ/L 4.7 MEQ/L Chloride Level 97 MEQ/L 95 MEQ/L Carbon Dioxide Level 22.3 MEQ/L 17.7 MEQ/L Anion Gap 11 MEQ/L 16 MEQ/L Blood Urea Nitrogen 86 MG/DL 88 MG/DL Creatinine 3.90 MG/DL 3.88 MG/DL Estimat Glomerular Filtration 16 ML/MIN 16 ML/MIN Rate Random Glucose 184 MG/DL 182 MG/DL Calcium Level 8.9 MG/DL 9.6 MG/DL Phosphorus Level 4.8 MG/DL 5.0 MG/DL Magnesium Level 2.2 MG/DL Microbiology Date/Time Procedure Status Source Growth 11/05/16 18:15 Cancelled Urine Random Urine 11/05/16 19:25 Gram Stain - Final Complete Sputum Expectorated Sputum 11/05/16 19:25 Sputum Culture - Final Complete Sputum Expectorated Sputum HEAVY GROWTH NORMAL RESPIRATORY GURDEEP 11/05/16 19:25 Acid Fast Stain - Final Resulted Sputum Expectorated Sputum NO ACID FAST BACILLI SEEN 11/05/16 19:25 Mycobacterial Culture Resulted Sputum Expectorated Sputum Pending 11/05/16 19:25 Fungal Smear - Final Resulted Sputum Expectorated Sputum NO FUNGAL ELEMENTS SEEN. 11/05/16 19:25 Fungal Culture Resulted Sputum Expectorated Sputum Pending 11/05/16 20:30 Legionella Antigen - Final Complete Urine Random Urine PRESUMPTIVE NEGATIVE FOR LEGIONELLA P... 11/05/16 20:30 Streptococcus pneumoniae Antigen (M - Final Complete Urine Random Urine PRESUMPTIVE NEGATIVE FOR STREPTOCOCCU... Imaging Last Impressions Abdomen/Pelvis CT 11/04/16 1248 Signed Impressions: Service Date/Time: Friday, November 04, 2016 14:45 - CONCLUSION: 1. New large consolidation seen at the right hilar and infrahilar region. 2. Mild thickening of the distal esophagus. This is nonspecific. 3. Distention of the stomach. 4. Transplanted kidney in the right lower quadrant. There is a 2.9 cm cyst at the inferior transplanted kidney. 5. Very extensive atherosclerotic calcifications seen throughout the arterial system. Derrek Lopez MD Chest X-Ray 11/04/16 0000 Signed Impressions: Service Date/Time: Friday, November 04, 2016 17:09 - CONCLUSION: Right base consolidation. Derrek Lopez MD Physical Exam CONSTITUTIONAL/GENERAL: This is an adequately nourished patient, in no apparent distress. TUBES/LINES/DRAINS: SKIN: No jaundice, rashes, or lesions. Skin temperature appropriate. Not diaphoretic. EYES: Pupils equal and round and reactive. Extraocular motions intact. No scleral icterus. No injection or drainage. ENT: Hearing grossly normal. Oral mucosae at without visible erythema, exudates , masses, or lesions. NECK: Trachea midline. Supple, nontender. N CARDIOVASCULAR: Regular rate and rhythm + 3/6 holosystolic harsh murmur with max on RUSB no , gallops, or rubs. No JVD. Peripheral pulses symmetric. RESPIRATORY/CHEST: Symmetric, unlabored respirations. B/b crackles to auscultation. Breath sounds equal bilaterally. No wheezes, rales, or rhonchi. GASTROINTESTINAL: Abdomen soft, non-tender, + mildly to moderately distended. No hepato-splenomegaly, + slightly tender palpable mass in RLQ cw allograft. No guarding. Bowel sounds present. GENITOURINARY: Without palpable bladder distension. MUSCULOSKELETAL: Extremities without clubbing, cyanosis, or edema. No joint tenderness or effusion noted. No calf tenderness. No mottling or clubbing. L hallux with well healed nail bed, no edema, erythema LYMPHATICS: No palpable cervical or supraclavicular adenopathy. NEUROLOGICAL: Awake and alert. Motor and sensory grossly within normal limits. Follows commands. Clear speech. Moves all extremities. PSYCHIATRIC: calm , cooperative Assessment & Plan Remarks PNA ? ethiology ? cryptococcus, vs bacterial vs other fungi vs other (viruses, atypical mycobacterial) ? 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, worsening renal fnx - poor prognosis for allograft function - pt is anuric, likley HD to be started in next 1-2 days Nausea, vpmiting, distal esophageal thickening, known Sam's - gastric potlet stenosis Diarrhea, abx associated, C.diff negative Aortic stenosis Severe CHF Multiple med problems cont high dose fluconazole 800-1200 (will be 400-600 renally adjusted); decrease to 400 cont broad spectrum abx - dc zosyn - start CFTX obtaine sputum - will consult ulmonalgist since pt is not expectorating , will need early bronch fu blood clx fu sputum clx, including AFB, fungal In case of confirmes crypto recurrentce and clinical deterioration will needd to be switche d to Amphothericin B, however this will put him in tremendous risk of loosing transplant and should be only reserved for last resort cont doxycyline for atypical coverage repeat CXR - consider bronch Nancy Centeno MD Nov 07, 2016 15:33
--- NOTE | 2016-11-07 15:48 | HHI.NPPN ---
Subjective History of Present Illness 66-year-old with nausea vomiting abdominal pain: The cryptococcal infection Review of Systems General Constitutional: Fatigue Objective Data Data 11/06/16 11/07/16 19:00 07:00 Intake Total 900 ml 100 ml Output Total 275 ml 750 ml Balance 625 ml -650 ml Intake Oral 900 ml IV Total 100 ml Output Urine Total 275 ml 750 ml # Bowel Movements 0 Vital Signs Date Time Temp Pulse Resp B/P Pulse Ox O2 Delivery O2 Flow Rate FiO2 11/07/16 15:29 91 Nasal Cannula 6.00 11/07/16 12:26 91 Nasal Cannula 6.00 11/07/16 12:01 97.3 64 19 143/65 97 11/07/16 11:22 63 18 134/56 90 11/07/16 11:12 64 18 131/65 87 11/07/16 11:02 97.7 61 18 121/58 89 11/07/16 10:26 97.6 62 16 131/62 91 11/07/16 08:01 97.6 62 20 131/62 91 11/07/16 08:00 Nasal Cannula 3.00 11/07/16 07:51 59 11/07/16 04:00 97.7 57 18 130/90 90 11/07/16 03:47 90 Nasal Cannula 3.00 11/07/16 03:20 56 11/07/16 00:05 64 11/07/16 00:00 98.0 66 20 129/61 89 11/06/16 22:53 20 11/06/16 21:30 Nasal Cannula 3.00 11/06/16 20:03 67 11/06/16 20:00 97.7 68 18 132/60 92 11/06/16 19:36 95 Nasal Cannula 3.00 11/06/16 19:05 20 11/06/16 16:00 97.4 63 18 123/60 91 -: 11/07/16 0717 11/07/16 0717 Physical Exam General Appearance: Well Developed Neck Neck Exam: Neck Supple Pulmonary Resp Exam: Decreased Bases Cardiology CV Exam: Regular, Murmur Gastrointestinal/Abdomen GI Exam: Soft, Non-Tender, Bowel Sounds Present Integumentary Skin Exam: Clear Extremeties Extremities Exam: Trace Edema Neurologic Neuro Exam: Alert Assessment/Plan Problem List: (1) Kidney transplant status, cadaveric Plan: Patient is a septic and required less immunosuppressive medication, cr 3.88 slightly better more UOP with Lasix c/o Nausea, try Reglan as gastroparesis is an issue pneumonia been treated s/p EGD (2) DM (diabetes mellitus) Plan: Follow blood glucose (3) Aortic stenosis Plan: He has severe aortic stenosis (4) Hypertension Plan: Monitor blood pressure (5) Pneumonia Plan: ID is following on Zosyn and fluconazole Problem Qualifiers (1) Pneumonia: Qualified Code: J18.9 - Pneumonia of right lung due to infectious organism, unspecified part of lung Stacy Dias MD Nov 07, 2016 15:48
--- NOTE | 2016-11-07 16:38 | HHI.PR ---
Subjective Remarks Patient seen and examined, very lengthy discussion with the patient has been done explaining to him what we found in the treatment including PPI physiology He is complaining of not being able even to drink water, he would feel a right away Also discussed with the nurse. Objective Vitals Vital Signs Date Time Temp Pulse Resp B/P Pulse Ox O2 Delivery O2 Flow Rate FiO2 11/07/16 16:21 97.3 66 19 143/65 93 11/07/16 15:29 91 Nasal Cannula 6.00 11/07/16 12:26 91 Nasal Cannula 6.00 11/07/16 12:01 97.3 64 19 143/65 97 11/07/16 11:22 63 18 134/56 90 11/07/16 11:12 64 18 131/65 87 11/07/16 11:02 97.7 61 18 121/58 89 11/07/16 10:26 97.6 62 16 131/62 91 11/07/16 08:01 97.6 62 20 131/62 91 11/07/16 08:00 Nasal Cannula 3.00 11/07/16 07:51 59 11/07/16 04:00 97.7 57 18 130/90 90 11/07/16 03:47 90 Nasal Cannula 3.00 11/07/16 03:20 56 11/07/16 00:05 64 11/07/16 00:00 98.0 66 20 129/61 89 11/06/16 22:53 20 11/06/16 21:30 Nasal Cannula 3.00 11/06/16 20:03 67 11/06/16 20:00 97.7 68 18 132/60 92 11/06/16 19:36 95 Nasal Cannula 3.00 11/06/16 19:05 20 I/O 11/06/16 11/06/16 11/06/16 11/07/16 11/07/16 11/07/16 07:00 15:00 23:00 07:00 15:00 23:00 Intake Total 290 ml 900 ml 100 ml 50 ml Output Total 350 ml 275 ml 250 ml 500 ml Balance -60 ml 625 ml -250 ml -400 ml 50 ml Intake Oral 240 ml 900 ml IV Total 50 ml 100 ml Other 50 ml Output Urine Total 350 ml 275 ml 250 ml 500 ml # Bowel Movements 0 Result Diagram: 7/5/17 0717 7/5/17 0717 Objective Remarks GENERAL: This is a well-nourished, well-developed patient, in no apparent distress. SKIN: No rashes, warm and dry HEAD: Atraumatic. Normocephalic. EYES: Pupils equal round and reactive. Extraocular motions intact. No scleral icterus. ENT: Nose without bleeding, or drainage, Airway patent. NECK: Trachea midline. Supple CARDIOVASCULAR: Regular rate and rhythm without murmurs, gallops, or rubs. RESPIRATORY: Decreased breath sounds on the right base GASTROINTESTINAL: Abdomen soft, non-tender, nondistended. Positive bowel sounds MUSCULOSKELETAL: Extremities without clubbing, cyanosis, or edema. Pedal pulses appreciated NEUROLOGICAL: Awake and alert. Moves all extremity. Normal speech.no focal neurological deficit A/P Problem List: (1) Sepsis ICD Code: A41.9 Status: Acute (2) Aortic stenosis ICD Code: I35.0 Status: Chronic (3) FRANTZ (acute kidney injury) ICD Code: N17.9 Status: Acute (4) Constipation ICD Code: K59.00 Status: Acute (5) IDDM (insulin dependent diabetes mellitus) ICD Code: E11.9 Status: Chronic (6) HAP (hospital-acquired pneumonia) ICD Code: J18.9 Status: Acute Assessment and Plan This is a 66-year-old male with history of congestive heart failure, cardiomyopathy, aortic stenosis, chronic kidney disease status post kidney transplant, diabetes mellitus, and recent fungemia, presenting back to the hospital with nausea, vomiting, constipation and cough. 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 Dysphagia for the last 2 weeks(not able to hold any food) history of Sam's syndrome, last EGD a year ago FRANTZ on CKD status post kidney transplant patient on mycophenolate and is on tacrolimus Hypertension Diabetes mellitus History of CHF, ACS, DF 35% plan for TAVR as an outpatient DVT prophylaxis with heparin Plan: BMP 224, hyponatremia with metabolic acidosis bicarbonate 17, renal following patient on Lasix Received a call from the nurse patient feeling anxious and asking for pain medication Appreciate GI consultation, status post EGD, report reviewed showed>> Gastroesophageal reflex, gastritis, gastroparesis, arousable esophagitis with stricture dilated 15 mm, GI recommended PPI intravenously twice a day, gastric emptying study and Reglan Continue iv antibiotic per ID doxycycline, Diflucan, ceftriaxone, found to be cryptococcus pneumonia patient will need amphotericin B which will be high risk for the transplanted kidney Appreciate pulmonology input, plan for ABL if sputum sample is not sufficient Appreciate nephrology consultation, hold mycophenolate for now due to cryptococcus infection, patient may need hemodialysis earlier than expected, resumed Lasix O2 DuoNeb Continue prednisone , tacrolimus Aaron Arana MD Nov 07, 2016 16:38
[2016-11-07] MEDS: cefTRIAXone INJ 1,000 MG in SODIUM CHLORIDE 0.9% INJ 100 ML IV SCH (17:33)
[2016-11-07] MEDS: PANTOPRAZOLE SODIUM 40 MG VIAL IV PUSH SCH (17:35)
--- NOTE | 2016-11-07 18:32 | HHI.PR ---
Subjective Remarks 66 YOWM with Renal transplant, CKD,CHF, On NC No Fever Cough, not able to expactorate had EGD Objective Vital Signs Vital Signs Date Time Temp Pulse Resp B/P Pulse Ox O2 Delivery O2 Flow Rate FiO2 11/07/16 16:21 97.3 66 19 143/65 93 11/07/16 15:29 91 Nasal Cannula 6.00 11/07/16 14:30 20 11/07/16 12:26 91 Nasal Cannula 6.00 11/07/16 12:01 97.3 64 19 143/65 97 11/07/16 11:22 63 18 134/56 90 11/07/16 11:12 64 18 131/65 87 11/07/16 11:02 97.7 61 18 121/58 89 11/07/16 10:26 97.6 62 16 131/62 91 11/07/16 08:01 97.6 62 20 131/62 91 11/07/16 08:00 Nasal Cannula 3.00 11/07/16 07:51 59 11/07/16 04:00 97.7 57 18 130/90 90 11/07/16 03:47 90 Nasal Cannula 3.00 11/07/16 03:20 56 11/07/16 00:05 64 11/07/16 00:00 98.0 66 20 129/61 89 11/06/16 22:53 20 11/06/16 21:30 Nasal Cannula 3.00 11/06/16 20:03 67 11/06/16 20:00 97.7 68 18 132/60 92 11/06/16 19:36 95 Nasal Cannula 3.00 11/06/16 19:05 20 I/O 11/06/16 11/06/16 11/06/16 11/07/16 11/07/16 11/07/16 07:00 15:00 23:00 07:00 15:00 23:00 Intake Total 290 ml 900 ml 100 ml 290 ml Output Total 350 ml 275 ml 250 ml 500 ml Balance -60 ml 625 ml -250 ml -400 ml 290 ml Intake Oral 240 ml 900 ml 240 ml IV Total 50 ml 100 ml Other 50 ml Output Urine Total 350 ml 275 ml 250 ml 500 ml # Voids 2 # Bowel Movements 0 0 Result Diagram: 7/5/17 0717 7/5/17 0717 Objective Remarks GENERAL: MBMN, NAD SKIN: Warm and dry. HEAD: Normocephalic. EYES: No scleral icterus. No injection or drainage. NECK: Supple, trachea midline. No JVD or lymphadenopathy. CARDIOVASCULAR: Regular rate and rhythm without murmurs, gallops, or rubs. RESPIRATORY: Breath sounds equal bilaterally. No accessory muscle use. rales at right base GASTROINTESTINAL: Abdomen soft, non-tender, nondistended. MUSCULOSKELETAL: No cyanosis, or edema. BACK: Nontender without obvious deformity. No CVA tenderness. A/P Assessment and Plan Right lung Pneumonia Renal Transplant CKD CHF PLAN: Cont Abx per ID Supplement [address] Centeno If not better, will need bronch for diagnosis Pravin Ward MD Nov 07, 2016 18:31
[2016-11-07] MEDS: NIFEdipine 90 MG SUSTAINED RELEASE TAB PO SCH (20:33)
[2016-11-07] MEDS: LORazepam 1 MG TAB PO SCH (20:33)
[2016-11-07] MEDS: INSULIN DETEMIR 100 UNITS/ML VIAL SQ SCH (20:42)
[2016-11-08] VITALS (11 sets, daily range): BP systolic 119–137; BP diastolic 56–63; PULSE 59–64; RESP 17–20; TEMP 97.2–98.6; O2SAT 90–93
[2016-11-08] MEDS: MORPHINE SULFATE 4 MG/ML INJ IV PRN ×2 (00:28→05:46)
[2016-11-08] MEDS: PANTOPRAZOLE SODIUM 40 MG VIAL IV PUSH SCH ×3 (00:29→23:52)
[2016-11-08] MEDS: RESP: ALBUTEROL 2.5 MG/IPRATROPIUM 0.5 MG NEB (SCH) INH ×4 (03:30→21:38)
--- NOTE | 2016-11-08 05:18 | RADRPT ---
EXAM DATE/TIME: 11/08/2016 05:09 [facility] COMPARISON: CHEST SINGLE AP, November 04, 2016, 17:09. INDICATIONS : Short of breath. MEDICAL HISTORY : Chronic obstructive pulmonary disease. Congestive heart failure. Diabetes mellitus type II. Hypertens ion. SURGICAL HISTORY : Right renal transplant. Right uretheral stent. ENCOUNTER: Subsequent ACUITY: 4 - 6 days PAIN SCORE: Non-responsive. LOCATION: Bilateral chest FINDINGS: A single view of the chest demonstrates bilateral perihilar airspace disease greater in the right. Sm all bilateral pleural effusions. Cardiomegaly. Osseous structures are intact. CONCLUSION: 1. Perihilar airspace disease greater on the right, likely pulmonary edema. 2. Small bilateral pleural effusions. Chung Handley MD on November 08, 2016 at 5:14 Board Certified Radiologist. This report was verified electronically.
[2016-11-08] MEDS: TACROLIMUS 1 MG CAP PO SCH ×2 (05:46→17:20)
[2016-11-08] MEDS: hydrALAZINE HCL 25 MG TAB PO SCH ×3 (05:46→23:51)
[2016-11-08] MEDS: ONDANSETRON HCL 4 MG/2 ML VIAL IV PRN ×2 (07:47→20:11)
[2016-11-08] MEDS: DOCUSATE SODIUM 50 MG/SENNA 8.6 MG TAB PO SCH ×2 (09:00→20:11)
[2016-11-08] MEDS: TIOTROPIUM BROMIDE 18 MCG INH INH SCH (09:00)
[2016-11-08] MEDS: POLYETHYLENE GLYCOL 17 GM PKG PO SCH (09:00)
[2016-11-08] MEDS: SODIUM CHLORIDE 0.9% FLUSH 10 ML FLUSH IV FLUSH SCH ×2 (09:00→20:11)
[2016-11-08] MEDS: LACTULOSE SYRUP 20 GM/30 ML CUP PO SCH (09:00)
[2016-11-08] MEDS ORDERED: METOCLOPRAMIDE HCL 10 MG/2 ML VIAL ONE (10:36)
[2016-11-08] MEDS: ACETAMINOPHEN/HYDROcodone 325 MG/7.5 MG TAB PO PRN (11:40)
[2016-11-08] MEDS: PREGABALIN 25 MG CAP PO SCH ×3 (11:41→17:25)
[2016-11-08] MEDS: SODIUM BICARBONATE 650 MG TAB PO SCH (11:42)
[2016-11-08] MEDS: DOXYCYCLINE HYCLATE 100 MG TAB PO SCH ×2 (11:42→20:10)
[2016-11-08] MEDS: predniSONE 5 MG TAB PO SCH (11:43)
[2016-11-08] MEDS: ISOSORBIDE MONONITRATE 30 MG TAB PO SCH (11:43)
[2016-11-08] MEDS: MULTIVITAMIN TAB PO SCH (11:44)
[2016-11-08] MEDS: FERROUS SULFATE 325 MG (65 MG ELEMENTAL IRON) TAB PO SCH (11:44)
[2016-11-08] MEDS: FUROSEMIDE 20 MG TAB PO SCH ×2 (11:45→17:21)
[2016-11-08] MEDS: cloNIDine HCL 0.1 MG TAB PO SCH (11:45)
[2016-11-08] MEDS: LABETALOL HCL 100 MG TAB PO SCH ×2 (11:46→20:10)
[2016-11-08] MEDS: FLUCONAZOLE 400 MG PREMIX BAG 200 ML IV SCH (11:49)
--- NOTE | 2016-11-08 11:51 | RADRPT ---
EXAM DATE/TIME: 11/08/2016 09:00 [facility] COMPARISON: No previous studies available for comparison. INDICATIONS : Abdominal pain, nausea and vomiting. DOSE: 1.1 mCi Tc99m Sulfur Colloid Labeled Whole egg PO MEDICATONS: 1.) 5 mg Reglan IV at 90 minutes IMAGIN hrs MEDICAL HISTORY : Congestive hearrt failure. Sam's syndrome. SURGICAL HISTORY : Right kidney transplant. ENCOUNTER: Initial ACUITY: 1 day PAIN SCALE: 2/10 LOCATION: Bilateral Abdomen. TECHNIQUE: Following the oral ingestion of radiotracer-labeled meal, dynamic sequential images in the UZBEK projec tion were acquired with simultaneous computer acquisition. The data set was decay-corrected. FINDINGS: EMPTYING: Gastric emptying kinetics are linear. The decay-corrected, back-extrapolated half-time of emptying i s 118 minutes. (Normal for this lab is 45- 90 minutes.) INTERVENTION: There appears to be improved emptying after Reglan at 90 minutes. CONCLUSION: 1. Delayed gastric emptying. 2. Improvement following IV Reglan. Ricardo Hansen MD on November 08, 2016 at 11:48 Board Certified Radiologist. This report was verified electronically.
[2016-11-08 14:05] LABS: BICARBONATE 19.4 MEQ/L (21.0-32.0); POTASSIUM 4.4 MEQ/L (3.5-5.1)
--- NOTE | 2016-11-08 14:18 | HHI.NPPN ---
Subjective History of Present Illness 66-year-old with nausea vomiting abdominal pain: The cryptococcal infection Review of Systems General Constitutional: Fatigue Objective Data Data 11/07/16 11/08/16 19:00 07:00 Intake Total 290 ml 520 ml Output Total 600 ml Balance 290 ml -80 ml Intake Oral 240 ml 480 ml Oral Supplement 40 ml Other 50 ml Output Urine Total 600 ml # Voids 2 # Bowel Movements 0 Vital Signs Date Time Temp Pulse Resp B/P Pulse Ox O2 Delivery O2 Flow Rate FiO2 11/08/16 12:00 97.2 64 17 119/56 92 11/08/16 12:00 Nasal Cannula 5.00 11/08/16 11:39 90 Nasal Cannula 5.00 11/08/16 10:54 59 11/08/16 08:13 Nasal Cannula 5.00 11/08/16 08:00 97.6 63 17 122/59 92 11/08/16 04:00 98.6 59 18 121/56 91 11/08/16 03:32 90 Nasal Cannula 6.00 11/08/16 00:00 98.0 60 18 137/63 91 11/07/16 21:20 Nasal Cannula 3.00 11/07/16 20:00 59 11/07/16 20:00 97.8 58 18 135/60 92 11/07/16 18:33 20 11/07/16 18:33 20 11/07/16 16:21 97.3 66 19 143/65 93 11/07/16 15:29 91 Nasal Cannula 6.00 -: 11/07/16 0717 11/08/16 1303 Physical Exam General Appearance: Well Developed Neck Neck Exam: Neck Supple Pulmonary Resp Exam: Decreased Bases Cardiology CV Exam: Regular, Murmur Gastrointestinal/Abdomen GI Exam: Soft, Non-Tender, Bowel Sounds Present Integumentary Skin Exam: Clear Extremeties Extremities Exam: Trace Edema Neurologic Neuro Exam: Alert Assessment/Plan Problem List: (1) Kidney transplant status, cadaveric Plan: Patient is a septic and required less immunosuppressive medication, cr 4.2 slightly worse more UOP with Lasix gastric emptying delayed improved post reglan, Reglan ordered as gastroparesis is an issue Na 129 discussed high Prograf drawn late repeat pneumonia been treated s/p EGD (2) DM (diabetes mellitus) Plan: Follow blood glucose (3) Aortic stenosis Plan: He has severe aortic stenosis (4) Hypertension Plan: Monitor blood pressure (5) Pneumonia Plan: ID is following on Ceftriaxone and fluconazole Problem Qualifiers (1) Pneumonia: Qualified Code: J18.9 - Pneumonia of right lung due to infectious organism, unspecified part of lung Stacy Dias MD Nov 08, 2016 14:18
--- NOTE | 2016-11-08 16:12 | HHI.GIFU ---
Subjective Remarks Pt sitting up in bed, eating. visiting with friends. Says he feels ok other than epigastric tenderness. Objective Vitals I&O Vital Signs Date Time Temp Pulse Resp B/P Pulse Ox O2 Delivery O2 Flow Rate FiO2 11/08/16 12:00 97.2 64 17 119/56 92 11/08/16 12:00 Nasal Cannula 5.00 11/08/16 11:39 90 Nasal Cannula 5.00 11/08/16 10:54 59 11/08/16 08:13 Nasal Cannula 5.00 11/08/16 08:00 97.6 63 17 122/59 92 11/08/16 04:00 98.6 59 18 121/56 91 11/08/16 03:32 90 Nasal Cannula 6.00 11/08/16 00:00 98.0 60 18 137/63 91 11/07/16 21:20 Nasal Cannula 3.00 11/07/16 20:00 59 11/07/16 20:00 97.8 58 18 135/60 92 11/07/16 18:33 20 11/07/16 18:33 20 11/07/16 16:21 97.3 66 19 143/65 93 I/O 11/07/16 11/07/16 11/07/16 11/08/16 11/08/16 11/08/16 07:00 15:00 23:00 07:00 15:00 23:00 Intake Total 100 ml 290 ml 240 ml 280 ml Output Total 500 ml 200 ml 400 ml Balance -400 ml 290 ml 40 ml -120 ml Intake Oral 240 ml 240 ml 240 ml Oral Supplement 40 ml IV Total 100 ml Other 50 ml Output Urine Total 500 ml 200 ml 400 ml # Voids 2 # Bowel Movements 0 Laboratory Laboratory Tests Test 11/08/16 13:03 Sodium Level 129 Potassium Level 4.4 Chloride Level 97 Carbon Dioxide Level 19.4 Anion Gap 13 Blood Urea Nitrogen 96 Creatinine 4.29 Estimat Glomerular Filtration 14 Rate Random Glucose 169 Calcium Level 9.6 Date/Time Procedure Status Source Growth 11/05/16 20:30 Legionella Antigen - Final Complete Urine Random Urine PRESUMPTIVE NEGATIVE FOR LEGIONELLA P... 11/05/16 20:30 Streptococcus pneumoniae Antigen (M - Final Complete Urine Random Urine PRESUMPTIVE NEGATIVE FOR STREPTOCOCCU... 11/05/16 19:25 Gram Stain - Final Complete Sputum Expectorated Sputum 11/05/16 19:25 Sputum Culture - Final Complete Sputum Expectorated Sputum HEAVY GROWTH NORMAL RESPIRATORY GURDEEP 11/05/16 19:25 Fungal Smear - Final Resulted Sputum Expectorated Sputum NO FUNGAL ELEMENTS SEEN. 11/05/16 19:25 Fungal Culture Resulted Sputum Expectorated Sputum Pending 11/05/16 19:25 Acid Fast Stain - Final Resulted Sputum Expectorated Sputum NO ACID FAST BACILLI SEEN 11/05/16 19:25 Mycobacterial Culture Resulted Sputum Expectorated Sputum Pending 11/05/16 18:15 Cancelled Urine Random Urine 11/04/16 14:15 Aerobic Blood Culture - Preliminary Resulted Blood Peripheral NO GROWTH IN 4 DAYS 11/04/16 14:15 Anaerobic Blood Culture - Preliminary Resulted Blood Peripheral NO GROWTH IN 4 DAYS Imaging Last Impressions Chest X-Ray 11/08/16 0600 Signed Impressions: Service Date/Time: November 05:09 - CONCLUSION: 1. Perihilar airspace disease greater on the right, likely pulmonary edema. 2. Small bilateral pleural effusions. Chung Handley MD Gastric Emptying Nuclear Medicine 11/08/16 0000 Signed Impressions: Service Date/Time: November 09:00 - CONCLUSION: 1. Delayed gastric emptying. 2. Improvement following IV Reglan. Ricardo Hansen MD Abdomen/Pelvis CT 11/04/16 1248 Signed Impressions: Service Date/Time: Friday, November 04, 2016 14:45 - CONCLUSION: 1. New large consolidation seen at the right hilar and infrahilar region. 2. Mild thickening of the distal esophagus. This is nonspecific. 3. Distention of the stomach. 4. Transplanted kidney in the right lower quadrant. There is a 2.9 cm cyst at the inferior transplanted kidney. 5. Very extensive atherosclerotic calcifications seen throughout the arterial system. Derrek Lopez MD Physical Exam HEENT: PERRL; normocephalic; atraumatic; no jaundice. CHEST: CTA. CARDIAC: RRR + murmur ABDOMEN: mildly distended, semifirm, tympanitic, diffuse TTP; bowel sounds are present in all four quadrants. EXTREMITIES: No clubbing, cyanosis, or edema. SKIN: Normal; no rash; no jaundice. MALT HOUSE LOADER: No focal deficits; alert and oriented times three. Assessment and Plan Plan ASSESSMENT - acid reflux, n/v - severe, regurgitating acid after eating, sporadic vomiting. 1 x episode hematemesis, none prior or since. GES + gastroparesis, response w/ IV reglan. s/p EGD w/ dil 11-07-16--> GERD, gastritis, gastroparesis, erosive esophagitis with stricture - anemia - 12.0 on admission - sepsis - PNA cryptococcus, per primary. ID following - FRANTZ on CKD - s/p kidney transplant, on tacrolimus & mycophenolate, per primary PLAN - low residue diet - monitor labs - PPI bid - IV reglan q6h This pt seen by myself and Dr Everett and this note is written on his behalf Hina Love Nov 08, 2016 16:12
[2016-11-08] MEDS: cefTRIAXone INJ 1,000 MG in SODIUM CHLORIDE 0.9% INJ 100 ML IV SCH (17:21)
[2016-11-08] MEDS: METOCLOPRAMIDE HCL 10 MG/2 ML VIAL IV PUSH SCH ×2 (17:22→22:03)
[2016-11-08] MEDS ORDERED: DEXTROSE 50% IN WATER 50 ML VIAL(D50) IV PUSH PRN (18:00)
[2016-11-08] MEDS ORDERED: GLUCAGON 1 MG/ML VIAL OTHER PRN (18:00)
[2016-11-08] MEDS: LOW DOSE INSULIN NOVOLOG SUPPLEMENTAL SCALE SQ SCH ×2 (18:09→22:07)
--- NOTE | 2016-11-08 18:52 | HHI.PR ---
Subjective Remarks Patient resting in bed he stated he is feeling better drinking and eating soft diet today Still having cough with dark phlegm, send for sputum culture if that didn't work will need ABL Objective Vitals Vital Signs Date Time Temp Pulse Resp B/P Pulse Ox O2 Delivery O2 Flow Rate FiO2 11/08/16 16:00 97.2 61 18 121/60 92 11/08/16 13:30 20 11/08/16 12:00 97.2 64 17 119/56 92 11/08/16 12:00 Nasal Cannula 5.00 11/08/16 11:39 90 Nasal Cannula 5.00 11/08/16 10:54 59 11/08/16 08:13 Nasal Cannula 5.00 11/08/16 08:00 97.6 63 17 122/59 92 11/08/16 04:00 98.6 59 18 121/56 91 11/08/16 03:32 90 Nasal Cannula 6.00 11/08/16 00:00 98.0 60 18 137/63 91 11/07/16 21:20 Nasal Cannula 3.00 11/07/16 20:00 59 11/07/16 20:00 97.8 58 18 135/60 92 I/O 11/07/16 11/07/16 11/07/16 11/08/16 11/08/16 11/08/16 07:00 15:00 23:00 07:00 15:00 23:00 Intake Total 100 ml 290 ml 240 ml 280 ml 240 ml Output Total 500 ml 200 ml 400 ml 100 ml Balance -400 ml 290 ml 40 ml -120 ml 140 ml Intake Oral 240 ml 240 ml 240 ml 240 ml Oral Supplement 40 ml IV Total 100 ml Other 50 ml Output Urine Total 500 ml 200 ml 400 ml 100 ml # Voids 2 # Bowel Movements 0 Result Diagram: 11/07/16 0717 11/08/16 1303 Objective Remarks GENERAL: This is a well-nourished, well-developed patient, in no apparent distress. SKIN: No rashes, warm and dry HEAD: Atraumatic. Normocephalic. EYES: Pupils equal round and reactive. Extraocular motions intact. No scleral icterus. ENT: Nose without bleeding, or drainage, Airway patent. NECK: Trachea midline. Supple CARDIOVASCULAR: Regular rate and rhythm without murmurs, gallops, or rubs. RESPIRATORY: Decreased breath sounds on the right base GASTROINTESTINAL: Abdomen soft, non-tender, nondistended. Positive bowel sounds MUSCULOSKELETAL: Extremities without clubbing, cyanosis, or edema. Pedal pulses appreciated NEUROLOGICAL: Awake and alert. Moves all extremity. Normal speech.no focal neurological deficit A/P Problem List: (1) Sepsis ICD Code: A41.9 Status: Acute (2) Aortic stenosis ICD Code: I35.0 Status: Chronic (3) FRANTZ (acute kidney injury) ICD Code: N17.9 Status: Acute (4) Constipation ICD Code: K59.00 Status: Acute (5) IDDM (insulin dependent diabetes mellitus) ICD Code: E11.9 Status: Chronic (6) HAP (hospital-acquired pneumonia) ICD Code: J18.9 Status: Acute Assessment and Plan This is a 66-year-old male with history of congestive heart failure, cardiomyopathy, aortic stenosis, chronic kidney disease status post kidney transplant, diabetes mellitus, and recent fungemia, presenting back to the hospital with nausea, vomiting, constipation and cough. 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 Dysphagia for the last 2 weeks(not able to hold any food) history of Sam's syndrome, last EGD a year ago FRANTZ on CKD status post kidney transplant patient on mycophenolate and is on tacrolimus Hypertension Diabetes mellitus History of CHF, ACS, DF 35% plan for TAVR as an outpatient DVT prophylaxis with heparin Plan: Better tolerating soft diet and water today BMP 2241, hyponatremia with metabolic acidosis bicarbonate 17, renal following patient on Lasix Received a call from the nurse patient feeling anxious and asking for pain medication Appreciate GI consultation, status post EGD, report reviewed showed>> Gastroesophageal reflex, gastritis, gastroparesis, arousable esophagitis with stricture dilated 15 mm, GI recommended PPI intravenously twice a day, gastric emptying study and Reglan Continue iv antibiotic per ID doxycycline, Diflucan, ceftriaxone, found to be cryptococcus pneumonia patient will need amphotericin B which will be high risk for the transplanted kidney Appreciate pulmonology input, plan for ABL if sputum sample is not sufficient Appreciate nephrology consultation, hold mycophenolate for now due to cryptococcus infection, patient may need hemodialysis earlier than expected, resumed Lasix O2 DuoNeb Continue prednisone , tacrolimus Aaron Arana MD Nov 08, 2016 18:52
--- NOTE | 2016-11-08 19:01 | HHI.PR ---
Subjective Remarks 66 YOWM with Renal transplant, CKD,CHF, On NC No Fever Cough, not able to expactorate " I feel much better' On 4LNC, comfortable Objective Vital Signs Vital Signs Date Time Temp Pulse Resp B/P Pulse Ox O2 Delivery O2 Flow Rate FiO2 11/08/16 16:00 97.2 61 18 121/60 92 11/08/16 13:30 20 11/08/16 12:00 97.2 64 17 119/56 92 11/08/16 12:00 Nasal Cannula 5.00 11/08/16 11:39 90 Nasal Cannula 5.00 11/08/16 10:54 59 11/08/16 08:13 Nasal Cannula 5.00 11/08/16 08:00 97.6 63 17 122/59 92 11/08/16 04:00 98.6 59 18 121/56 91 11/08/16 03:32 90 Nasal Cannula 6.00 11/08/16 00:00 98.0 60 18 137/63 91 11/07/16 21:20 Nasal Cannula 3.00 11/07/16 20:00 59 11/07/16 20:00 97.8 58 18 135/60 92 I/O 11/07/16 11/07/16 11/07/16 11/08/16 11/08/16 11/08/16 07:00 15:00 23:00 07:00 15:00 23:00 Intake Total 100 ml 290 ml 240 ml 280 ml 240 ml Output Total 500 ml 200 ml 400 ml 100 ml Balance -400 ml 290 ml 40 ml -120 ml 140 ml Intake Oral 240 ml 240 ml 240 ml 240 ml Oral Supplement 40 ml IV Total 100 ml Other 50 ml Output Urine Total 500 ml 200 ml 400 ml 100 ml # Voids 2 # Bowel Movements 0 Result Diagram: 11/07/16 0717 11/08/16 1303 Objective Remarks GENERAL: MBMN, NAD SKIN: Warm and dry. HEAD: Normocephalic. EYES: No scleral icterus. No injection or drainage. NECK: Supple, trachea midline. No JVD or lymphadenopathy. CARDIOVASCULAR: Regular rate and rhythm without murmurs, gallops, or rubs. RESPIRATORY: Breath sounds equal bilaterally. No accessory muscle use. rales at right base GASTROINTESTINAL: Abdomen soft, non-tender, nondistended. MUSCULOSKELETAL: No cyanosis, or edema. BACK: Nontender without obvious deformity. No CVA tenderness. A/P Assessment and Plan Right lung Pneumonia Renal Transplant CKD CHF PLAN: Cont Abx per ID Supplement [address] Centeno Clinically improving. Pravin Ward MD Nov 08, 2016 19:01
[2016-11-08] MEDS: NIFEdipine 90 MG SUSTAINED RELEASE TAB PO SCH (20:10)
[2016-11-08] MEDS: BISACODYL 10 MG SUPP RECTAL PRN (20:55)
[2016-11-08] MEDS: LORazepam 1 MG TAB PO SCH (22:03)
[2016-11-08] MEDS: INSULIN DETEMIR 100 UNITS/ML VIAL SQ SCH (22:07)
[2016-11-09] VITALS (9 sets, daily range): BP systolic 110–140; BP diastolic 54–65; PULSE 58–83; RESP 16–18; TEMP 97.4–97.8; O2SAT 91–94
[2016-11-09] MEDS: hydrALAZINE HCL 25 MG TAB PO SCH ×3 (06:04→22:00)
[2016-11-09] MEDS: TACROLIMUS 1 MG CAP PO SCH ×2 (06:04→22:16)
[2016-11-09] MEDS: METOCLOPRAMIDE HCL 10 MG/2 ML VIAL IV PUSH SCH ×3 (06:05→22:15)
[2016-11-09] MEDS: LOW DOSE INSULIN NOVOLOG SUPPLEMENTAL SCALE SQ SCH ×4 (06:11→22:28)
[2016-11-09 07:19] LABS: BASOPHIL % 0.4 % (0.0-2.0); EOSINOPHIL % 0.5 % (0.0-4.0); HEMATOCRIT 30.8 % (39.0-51.0); HEMO FLAGS DIFF FINAL; LYMPH % 14.5 % (9.0-44.0); LYMPHOCYTE # 0.8 TH/MM3 (1.0-4.8); MEAN CELL VOLUME 82.8 FL (80.0-100.0); MEAN CORPUSCULAR HGB CONC 32.6 % (32.0-36.0); MONO % 10.5 % (0.0-8.0); NEUT % 74.1 % (16.0-70.0); PLATELET COUNT 182 TH/MM3 (150-450); RED BLOOD COUNT 3.71 MIL/MM3 (4.50-5.90); RED CELL DISTRIBUTION WIDTH 15.4 % (11.6-17.2); WHITE BLOOD COUNT 5.4 TH/MM3 (4.0-11.0)
[2016-11-09 07:20] LABS: ALT (GPT) 14 U/L (12-78); ANION GAP 11 MEQ/L (5-15); AST (GOT) 7 U/L (15-37); BLOOD UREA NITROGEN 94 MG/DL (7-18); CHLORIDE 97 MEQ/L (98-107); GLOMERULAR FILTRATION RATE 13 ML/MIN (>89); MAGNESIUM 2.5 MG/DL (1.5-2.5); POTASSIUM 4.6 MEQ/L (3.5-5.1); SODIUM (NA) 129 MEQ/L (136-145)
[2016-11-09 07:23] LABS: ALKALINE PHOSPHATASE 81 U/L (45-117); TOTAL BILIRUBIN ADULT 0.5 MG/DL (0.2-1.0)
[2016-11-09] MEDS: POLYETHYLENE GLYCOL 17 GM PKG PO SCH ×3 (09:00→16:19)
[2016-11-09] MEDS: LACTULOSE SYRUP 20 GM/30 ML CUP PO SCH ×2 (09:00→16:19)
[2016-11-09] MEDS: LABETALOL HCL 100 MG TAB PO SCH ×2 (09:00→22:14)
[2016-11-09] MEDS: cloNIDine HCL 0.1 MG TAB PO SCH (09:00)
[2016-11-09] MEDS: TIOTROPIUM BROMIDE 18 MCG INH INH SCH (09:00)
[2016-11-09] MEDS: FLUCONAZOLE 400 MG PREMIX BAG 200 ML IV SCH (09:05)
[2016-11-09] MEDS: SODIUM CHLORIDE 0.9% FLUSH 10 ML FLUSH IV FLUSH SCH ×2 (09:20→22:16)
[2016-11-09] MEDS: DOCUSATE SODIUM 50 MG/SENNA 8.6 MG TAB PO SCH ×2 (09:20→21:00)
[2016-11-09] MEDS: PREGABALIN 25 MG CAP PO SCH ×3 (09:21→22:16)
[2016-11-09] MEDS: FUROSEMIDE 20 MG TAB PO SCH ×2 (09:21→22:15)
[2016-11-09] MEDS: MULTIVITAMIN TAB PO SCH (09:21)
[2016-11-09] MEDS: FERROUS SULFATE 325 MG (65 MG ELEMENTAL IRON) TAB PO SCH (09:21)
[2016-11-09] MEDS: predniSONE 5 MG TAB PO SCH (09:21)
[2016-11-09] MEDS: DOXYCYCLINE HYCLATE 100 MG TAB PO SCH ×2 (09:21→22:15)
[2016-11-09] MEDS: SODIUM BICARBONATE 650 MG TAB PO SCH (09:21)
[2016-11-09] MEDS: ISOSORBIDE MONONITRATE 30 MG TAB PO SCH (09:22)
[2016-11-09] MEDS ORDERED: SODIUM CHLOR 0.9% 1000 ML INJ 1,000 ML IV PRN ×3 (12:42)
--- NOTE | 2016-11-09 12:42 | HHI.GIFU ---
Subjective Remarks Resting in bed, no distress. Tolerating diet. States no heartburn, reflux, n/v , or abdominal pain. 2 bm documented. Objective Vitals I&O Vital Signs Date Time Temp Pulse Resp B/P Pulse Ox O2 Delivery O2 Flow Rate FiO2 11/09/16 10:44 94 Nasal Cannula 4.00 11/09/16 10:30 64 11/09/16 09:30 92 Nasal Cannula 4.00 Humidified 11/09/16 08:00 97.8 64 16 110/55 92 11/09/16 04:00 Nasal Cannula 4.00 Humidified 11/09/16 04:00 97.4 64 18 115/54 93 11/09/16 00:00 97.7 58 18 119/57 93 11/09/16 00:00 Nasal Cannula 4.00 Humidified 11/08/16 21:42 93 Nasal Cannula 4.00 11/08/16 20:00 Nasal Cannula 5.00 Humidified 11/08/16 20:00 98.4 62 20 120/57 90 11/08/16 19:57 62 11/08/16 19:11 Nasal Cannula 5.00 Humidified 11/08/16 16:00 97.2 61 18 121/60 92 11/08/16 13:30 20 I/O 11/08/16 11/08/16 11/08/16 11/09/16 11/09/16 11/09/16 07:00 15:00 23:00 07:00 15:00 23:00 Intake Total 280 ml 240 ml 460 ml Output Total 400 ml 100 ml 750 ml 350 ml Balance -120 ml 140 ml -290 ml -350 ml Intake Oral 240 ml 240 ml 460 ml Oral Supplement 40 ml Output Urine Total 400 ml 100 ml 750 ml 350 ml # Bowel Movements 0 2 Laboratory Laboratory Tests Test 11/08/16 11/09/16 13:03 06:05 Sodium Level 129 129 Potassium Level 4.4 4.6 Chloride Level 97 97 Carbon Dioxide Level 19.4 21.0 Anion Gap 13 11 Blood Urea Nitrogen 96 94 Creatinine 4.29 4.57 Estimat Glomerular Filtration 14 13 Rate Random Glucose 169 163 Calcium Level 9.6 9.0 White Blood Count 5.4 Red Blood Count 3.71 Hemoglobin 10.0 Hematocrit 30.8 Mean Corpuscular Volume 82.8 Mean Corpuscular Hemoglobin 27.0 Mean Corpuscular Hemoglobin 32.6 Concent Red Cell Distribution Width 15.4 Platelet Count 182 Mean Platelet Volume 9.4 Neutrophils (%) (Auto) 74.1 Lymphocytes (%) (Auto) 14.5 Monocytes (%) (Auto) 10.5 Eosinophils (%) (Auto) 0.5 Basophils (%) (Auto) 0.4 Neutrophils # (Auto) 4.0 Lymphocytes # (Auto) 0.8 Monocytes # (Auto) 0.6 Eosinophils # (Auto) 0.0 Basophils # (Auto) 0.0 CBC Comment DIFF FINAL Differential Comment Phosphorus Level 4.4 Magnesium Level 2.5 Total Bilirubin 0.5 Aspartate Amino Transf 7 (AST/SGOT) Alanine Aminotransferase 14 (ALT/SGPT) Alkaline Phosphatase 81 Total Protein 6.2 Albumin 2.6 Tacrolimus (Prograf) Level 15.6 Date/Time Procedure Status Source Growth 11/05/16 20:30 Legionella Antigen - Final Complete Urine Random Urine PRESUMPTIVE NEGATIVE FOR LEGIONELLA P... 11/05/16 20:30 Streptococcus pneumoniae Antigen (M - Final Complete Urine Random Urine PRESUMPTIVE NEGATIVE FOR STREPTOCOCCU... 11/05/16 19:25 Gram Stain - Final Complete Sputum Expectorated Sputum 11/05/16 19:25 Sputum Culture - Final Complete Sputum Expectorated Sputum HEAVY GROWTH NORMAL RESPIRATORY GURDEEP 11/05/16 19:25 Fungal Smear - Final Resulted Sputum Expectorated Sputum NO FUNGAL ELEMENTS SEEN. 11/05/16 19:25 Fungal Culture Resulted Sputum Expectorated Sputum Pending 11/05/16 19:25 Acid Fast Stain - Final Resulted Sputum Expectorated Sputum NO ACID FAST BACILLI SEEN 11/05/16 19:25 Mycobacterial Culture Resulted Sputum Expectorated Sputum Pending 11/05/16 18:15 Cancelled Urine Random Urine 11/04/16 14:15 Aerobic Blood Culture - Final Complete Blood Peripheral NO GROWTH IN 5 DAYS 11/04/16 14:15 Anaerobic Blood Culture - Final Complete Blood Peripheral NO GROWTH IN 5 DAYS Imaging Last Impressions Chest X-Ray 11/08/16 0600 Signed Impressions: Service Date/Time: November 05:09 - CONCLUSION: 1. Perihilar airspace disease greater on the right, likely pulmonary edema. 2. Small bilateral pleural effusions. Chung Handley MD Gastric Emptying Nuclear Medicine 11/08/16 0000 Signed Impressions: Service Date/Time: November 09:00 - CONCLUSION: 1. Delayed gastric emptying. 2. Improvement following IV Reglan. Ricardo Hansen MD Abdomen/Pelvis CT 11/04/16 1248 Signed Impressions: Service Date/Time: Friday, November 04, 2016 14:45 - CONCLUSION: 1. New large consolidation seen at the right hilar and infrahilar region. 2. Mild thickening of the distal esophagus. This is nonspecific. 3. Distention of the stomach. 4. Transplanted kidney in the right lower quadrant. There is a 2.9 cm cyst at the inferior transplanted kidney. 5. Very extensive atherosclerotic calcifications seen throughout the arterial system. Derrek Lopez MD Physical Exam HEENT: Normocephalic; atraumatic; no jaundice. CHEST: CTA. CARDIAC: RRR + murmur ABDOMEN: Soft, mild to moderate distention, pt states much improved, nontender on exam; bowel sounds are present EXTREMITIES: No clubbing, cyanosis, or edema. SKIN: Normal; no rash; no jaundice. BOX ANNEALER: No focal deficits; alert and oriented times three. Assessment and Plan Plan ASSESSMENT - NV with one episode of hematemesis. Abdomen/Pelvis CT (11/04/16)------> 1. New large consolidation seen at the right hilar and infrahilar region. 2. Mild thickening of the distal esophagus. This is nonspecific. 3. Distention of the stomach. 4. Transplanted kidney in the right lower quadrant. There is a 2.9 cm cyst at the inferior transplanted kidney. 5. Very extensive atherosclerotic calcifications seen throughout the arterial system. S/P EGD with dilatation (11/07/16)----> gastroesophageal reflux disease, gastritis, gastroparesis, erosive esophagitis with stricture dilated to 15 mm. A more aggressive dilatation could not be performed because of the erosive esophagitis. Pathology gastric mucosa without significant histologic abnormality. Tolerating diet. States he is swallowing without any difficulty. No further n/v. - GERD. PPI - Esophageal stricture. S/P dilatation, swallowing improved. - Gastroparesis. Gastric Emptying Nuclear Medicine (11/08/16)-----> 1. Delayed gastric emptying. 2. Improvement following IV Reglan at reduced dose for kidney injury. - Anemia, normocytic. HH 10.0/30.8. No active bleeding. - Sepsis/Leukocytosis, improved. Abx per ID. 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 Cryptococcal ag negative. Pulm/ID following. Diflucan, Ceftriaxone, doxycycline, nebs - Acute on chronic renal failure with hx of kidney transplant. Worsening renal function. Prednisone, prograf per renal. PLAN - Low residue, soft dietdiet - Cont. PPI - Reglan at reduced dose for kidney function - Miralax 17gram po daily - GI will sign off, please reconsult as needed - Pt seen by myself and Dr Everett and this note is written on his behalf Dena Rushing Nov 09, 2016 12:42
[2016-11-09] MEDS ORDERED: diphenhydrAMINE HCL 25 MG CAP PO PRN (12:45)
[2016-11-09] MEDS ORDERED: cloNIDine HCL 0.1 MG TAB PO PRN (12:45)
[2016-11-09] MEDS ORDERED: ACETAMINOPHEN 325 MG TAB PO PRN (12:45)
[2016-11-09] MEDS ORDERED: NITROGLYCERIN 0.4 MG SL 25 TABS/BTL SL PRN (12:45)
[2016-11-09] MEDS ORDERED: SODIUM CHLORIDE 0.9% FLUSH 10 ML FLUSH IV FLUSH PRN (12:45)
[2016-11-09] MEDS ORDERED: HEPARIN SODIUM - IV 10,000 UNITS/10 ML VIAL IVF PRN (12:45)
[2016-11-09] MEDS ORDERED: MANNITOL 12.5 GM/50 ML VIAL IV PRN (12:45)
[2016-11-09] MEDS ORDERED: ALBUMIN HUMAN 25% 25 GM/100 ML BAGP IV PRN (12:45)
[2016-11-09] MEDS ORDERED: GELATIN 12 MM/7 MM FOAM TOP PRN (12:45)
[2016-11-09] MEDS ORDERED: ONDANSETRON HCL 4 MG/2 ML VIAL IV PRN (12:45)
--- NOTE | 2016-11-09 12:48 | HHI.NPPN ---
Subjective History of Present Illness 66-year-old with nausea vomiting abdominal pain and has the cryptococcal infection Additional Remarks c/o lack of energy poor appetite, low UOP Review of Systems General Constitutional: Fatigue Objective Data Data 11/08/16 11/09/16 19:00 07:00 Intake Total 240 ml 460 ml Output Total 100 ml 1100 ml Balance 140 ml -640 ml Intake Oral 240 ml 460 ml Output Urine Total 100 ml 1100 ml # Bowel Movements 2 Vital Signs Date Time Temp Pulse Resp B/P Pulse Ox O2 Delivery O2 Flow Rate FiO2 11/09/16 10:44 94 Nasal Cannula 4.00 11/09/16 10:30 64 11/09/16 09:30 92 Nasal Cannula 4.00 Humidified 11/09/16 08:00 97.8 64 16 110/55 92 11/09/16 04:00 Nasal Cannula 4.00 Humidified 11/09/16 04:00 97.4 64 18 115/54 93 11/09/16 00:00 97.7 58 18 119/57 93 11/09/16 00:00 Nasal Cannula 4.00 Humidified 11/08/16 21:42 93 Nasal Cannula 4.00 11/08/16 20:00 Nasal Cannula 5.00 Humidified 11/08/16 20:00 98.4 62 20 120/57 90 11/08/16 19:57 62 11/08/16 19:11 Nasal Cannula 5.00 Humidified 11/08/16 16:00 97.2 61 18 121/60 92 11/08/16 13:30 20 -: 11/09/16 0605 11/09/16 0605 Imaging Last Impressions Chest X-Ray 11/08/16 0600 Signed Impressions: Service Date/Time: November 05:09 - CONCLUSION: 1. Perihilar airspace disease greater on the right, likely pulmonary edema. 2. Small bilateral pleural effusions. Chung Handley MD Gastric Emptying Nuclear Medicine 11/08/16 0000 Signed Impressions: Service Date/Time: November 09:00 - CONCLUSION: 1. Delayed gastric emptying. 2. Improvement following IV Reglan. Ricardo Hansen MD Abdomen/Pelvis CT 11/04/16 1248 Signed Impressions: Service Date/Time: Friday, November 04, 2016 14:45 - CONCLUSION: 1. New large consolidation seen at the right hilar and infrahilar region. 2. Mild thickening of the distal esophagus. This is nonspecific. 3. Distention of the stomach. 4. Transplanted kidney in the right lower quadrant. There is a 2.9 cm cyst at the inferior transplanted kidney. 5. Very extensive atherosclerotic calcifications seen throughout the arterial system. Derrek Lopez MD Physical Exam General Appearance: Well Developed Neck Neck Exam: Neck Supple Pulmonary Resp Exam: Decreased Bases Cardiology CV Exam: Regular, Murmur Gastrointestinal/Abdomen GI Exam: Soft, Non-Tender, Bowel Sounds Present Integumentary Skin Exam: Clear Extremeties Extremities Exam: Trace Edema Neurologic Neuro Exam: Alert Assessment/Plan Problem List: (1) Kidney transplant status, cadaveric Plan: Patient is a septic and required less immunosuppressive medication, cr 4.57 UOP declined gastric emptying delayed improved post reglan, Reglan ordered as gastroparesis is an issue Na 129 discussed high Prograf drawn late again repeat 15.6 pneumonia been treated s/p EGD discussed dialysis needs it as Pulmonary edema, uremia worse, low UOP and not much improvement he agreed AVF Left (2) DM (diabetes mellitus) Plan: Follow blood glucose (3) Aortic stenosis Plan: He has severe aortic stenosis (4) Hypertension Plan: Monitor blood pressure (5) Pneumonia Plan: ID is following on Ceftriaxone and fluconazole Problem Qualifiers (1) Pneumonia: Qualified Code: J18.9 - Pneumonia of right lung due to infectious organism, unspecified part of lung Stacy Dias MD Nov 09, 2016 12:48
[2016-11-09] MEDS: PANTOPRAZOLE SODIUM 40 MG VIAL IV PUSH SCH ×2 (13:22→22:15)
[2016-11-09] MEDS: ACETAMINOPHEN/HYDROcodone 325 MG/7.5 MG TAB PO PRN ×2 (13:30→17:08)
--- NOTE | 2016-11-09 14:03 | HHI.IDPN ---
Subjective Subjective Remarks remains on NC O2 HD is planned today no fever + decreased UOP Antibiotics CFTX doxycycline fluconazole Allergies: Coded Allergies: No Known Allergies (Unverified , 11/04/16) Objective . Vital Signs Date Time Temp Pulse Resp B/P Pulse Ox O2 Delivery O2 Flow Rate FiO2 11/09/16 10:44 94 Nasal Cannula 4.00 11/09/16 10:30 64 11/09/16 09:30 92 Nasal Cannula 4.00 Humidified 11/09/16 08:00 97.8 64 16 110/55 92 11/09/16 04:00 Nasal Cannula 4.00 Humidified 11/09/16 04:00 97.4 64 18 115/54 93 11/09/16 00:00 97.7 58 18 119/57 93 11/09/16 00:00 Nasal Cannula 4.00 Humidified 11/08/16 21:42 93 Nasal Cannula 4.00 11/08/16 20:00 Nasal Cannula 5.00 Humidified 11/08/16 20:00 98.4 62 20 120/57 90 11/08/16 19:57 62 11/08/16 19:11 Nasal Cannula 5.00 Humidified 11/08/16 16:00 97.2 61 18 121/60 92 11/08/16 13:30 20 11/08/16 11/08/16 11/09/16 15:00 23:00 07:00 Intake Total 240 ml 460 ml Output Total 100 ml 750 ml 350 ml Balance 140 ml -290 ml -350 ml Intake Oral 240 ml 460 ml Output Urine Total 100 ml 750 ml 350 ml # Bowel Movements 0 2 . Laboratory Tests Test 11/09/16 06:05 White Blood Count 5.4 TH/MM3 Red Blood Count 3.71 MIL/MM3 Hemoglobin 10.0 GM/DL Hematocrit 30.8 % Mean Corpuscular Volume 82.8 FL Mean Corpuscular Hemoglobin 27.0 PG Mean Corpuscular Hemoglobin 32.6 % Concent Red Cell Distribution Width 15.4 % Platelet Count 182 TH/MM3 Mean Platelet Volume 9.4 FL Neutrophils (%) (Auto) 74.1 % Lymphocytes (%) (Auto) 14.5 % Monocytes (%) (Auto) 10.5 % Eosinophils (%) (Auto) 0.5 % Basophils (%) (Auto) 0.4 % Neutrophils # (Auto) 4.0 TH/MM3 Lymphocytes # (Auto) 0.8 TH/MM3 Monocytes # (Auto) 0.6 TH/MM3 Eosinophils # (Auto) 0.0 TH/MM3 Basophils # (Auto) 0.0 TH/MM3 CBC Comment DIFF FINAL Differential Comment Laboratory Tests Test 11/08/16 11/09/16 13:03 06:05 Sodium Level 129 MEQ/L 129 MEQ/L Potassium Level 4.4 MEQ/L 4.6 MEQ/L Chloride Level 97 MEQ/L 97 MEQ/L Carbon Dioxide Level 19.4 MEQ/L 21.0 MEQ/L Anion Gap 13 MEQ/L 11 MEQ/L Blood Urea Nitrogen 96 MG/DL 94 MG/DL Creatinine 4.29 MG/DL 4.57 MG/DL Estimat Glomerular Filtration 14 ML/MIN 13 ML/MIN Rate Random Glucose 169 MG/DL 163 MG/DL Calcium Level 9.6 MG/DL 9.0 MG/DL Phosphorus Level 4.4 MG/DL Magnesium Level 2.5 MG/DL Total Bilirubin 0.5 MG/DL Aspartate Amino Transf 7 U/L (AST/SGOT) Alanine Aminotransferase 14 U/L (ALT/SGPT) Alkaline Phosphatase 81 U/L Total Protein 6.2 GM/DL Albumin 2.6 GM/DL Imaging Last Impressions Chest X-Ray 11/08/16 0600 Signed Impressions: Service Date/Time: November 05:09 - CONCLUSION: 1. Perihilar airspace disease greater on the right, likely pulmonary edema. 2. Small bilateral pleural effusions. Chung Handley MD Gastric Emptying Nuclear Medicine 11/08/16 0000 Signed Impressions: Service Date/Time: November 09:00 - CONCLUSION: 1. Delayed gastric emptying. 2. Improvement following IV Reglan. Ricardo Hansen MD Abdomen/Pelvis CT 11/04/16 1248 Signed Impressions: Service Date/Time: Friday, November 04, 2016 14:45 - CONCLUSION: 1. New large consolidation seen at the right hilar and infrahilar region. 2. Mild thickening of the distal esophagus. This is nonspecific. 3. Distention of the stomach. 4. Transplanted kidney in the right lower quadrant. There is a 2.9 cm cyst at the inferior transplanted kidney. 5. Very extensive atherosclerotic calcifications seen throughout the arterial system. Derrek Lopez MD Physical Exam CONSTITUTIONAL/GENERAL: This is an adequately nourished patient, in no apparent distress. TUBES/LINES/DRAINS: LUE AV fistula in place with excellent thrill SKIN: No jaundice, rashes, or lesions. Skin temperature appropriate. Not diaphoretic. EYES: Pupils equal and round and reactive. Extraocular motions intact. No scleral icterus. No injection or drainage. ENT: Hearing grossly normal. Oral mucosae at without visible erythema, exudates , masses, or lesions. NECK: Trachea midline. Supple, nontender. N CARDIOVASCULAR: Regular rate and rhythm + 3/6 holosystolic harsh murmur with max on RUSB no , gallops, or rubs. No JVD. Peripheral pulses symmetric. RESPIRATORY/CHEST: Symmetric, unlabored respirations. B/b crackles to auscultation. Breath sounds equal bilaterally. No wheezes, rales, or rhonchi. GASTROINTESTINAL: Abdomen soft, non-tender, + mildly to moderately distended. No hepato-splenomegaly, + slightly tender palpable mass in RLQ cw allograft. No guarding. Bowel sounds present. GENITOURINARY: Without palpable bladder distension. MUSCULOSKELETAL: Extremities without clubbing, cyanosis, or edema. No joint tenderness or effusion noted. No calf tenderness. No mottling or clubbing. LYMPHATICS: No palpable cervical or supraclavicular adenopathy. NEUROLOGICAL: Awake and alert. Motor and sensory grossly within normal limits. Follows commands. Clear speech. Moves all extremities. PSYCHIATRIC: calm , cooperative depressed over his med situation and need for HD Assessment & Plan Remarks PNA ? ethiology ? cryptococcus, vs bacterial vs other fungi vs other (viruses, atypical mycobacterial) ? 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 Nausea, vpmiting, distal esophageal thickening, known Sam's - gastric potlet stenosis Diarrhea, abx associated, C.diff negative Aortic stenosis Severe CHF Multiple med problems cont high dose fluconazole 800-1200 (will be 400-600 renally adjusted); decrease to 400 - dc zosyn - start CFTX obtaine sputum - will consult ulmonalgist since pt is not expectorating , will need early bronch fu blood clx fu sputum clx, including AFB, fungal In case of confirmes crypto recurrentce and clinical deterioration will needd to be switche d to Amphothericin B, however this will put him in tremendous risk of loosing transplant and should be only reserved for last resort cont doxycyline for atypical coverage will dw Dr Dias regarding plans about immunosupression consult cardiology Nancy Centeno MD Nov 09, 2016 14:03
--- NOTE | 2016-11-09 14:38 | HHI.PR ---
Subjective Remarks swallowing is still better than before able to tolerate fluid and soft diet Still having cough with dark phlegm Objective Vitals Vital Signs Date Time Temp Pulse Resp B/P Pulse Ox O2 Delivery O2 Flow Rate FiO2 11/09/16 10:44 94 Nasal Cannula 4.00 11/09/16 10:30 64 11/09/16 09:30 92 Nasal Cannula 4.00 Humidified 11/09/16 08:00 97.8 64 16 110/55 92 11/09/16 04:00 Nasal Cannula 4.00 Humidified 11/09/16 04:00 97.4 64 18 115/54 93 11/09/16 00:00 97.7 58 18 119/57 93 11/09/16 00:00 Nasal Cannula 4.00 Humidified 11/08/16 21:42 93 Nasal Cannula 4.00 11/08/16 20:00 Nasal Cannula 5.00 Humidified 11/08/16 20:00 98.4 62 20 120/57 90 11/08/16 19:57 62 11/08/16 19:11 Nasal Cannula 5.00 Humidified 11/08/16 16:00 97.2 61 18 121/60 92 I/O 11/08/16 11/08/16 11/08/16 11/09/16 11/09/16 11/09/16 07:00 15:00 23:00 07:00 15:00 23:00 Intake Total 280 ml 240 ml 460 ml Output Total 400 ml 100 ml 750 ml 350 ml Balance -120 ml 140 ml -290 ml -350 ml Intake Oral 240 ml 240 ml 460 ml Oral Supplement 40 ml Output Urine Total 400 ml 100 ml 750 ml 350 ml # Bowel Movements 0 2 Result Diagram: 11/09/1660411/09/16 0605 Objective Remarks GENERAL: This is a well-nourished, well-developed patient, in no apparent distress. SKIN: No rashes, warm and dry HEAD: Atraumatic. Normocephalic. EYES: Pupils equal round and reactive. Extraocular motions intact. No scleral icterus. ENT: Nose without bleeding, or drainage, Airway patent. NECK: Trachea midline. Supple CARDIOVASCULAR: Regular rate and rhythm without murmurs, gallops, or rubs. RESPIRATORY: positive crackles on the right base GASTROINTESTINAL: Abdomen soft, non-tender, nondistended. Positive bowel sounds MUSCULOSKELETAL: Extremities without clubbing, cyanosis, or edema. Pedal pulses appreciated NEUROLOGICAL: Awake and alert. Moves all extremity. Normal speech.no focal neurological deficit A/P Problem List: (1) Sepsis ICD Code: A41.9 Status: Acute (2) Aortic stenosis ICD Code: I35.0 Status: Chronic (3) FRANTZ (acute kidney injury) ICD Code: N17.9 Status: Acute (4) Constipation ICD Code: K59.00 Status: Acute (5) IDDM (insulin dependent diabetes mellitus) ICD Code: E11.9 Status: Chronic (6) HAP (hospital-acquired pneumonia) ICD Code: J18.9 Status: Acute Assessment and Plan This is a 66-year-old male with history of congestive heart failure, cardiomyopathy, aortic stenosis, chronic kidney disease status post kidney transplant, diabetes mellitus, and recent fungemia, presenting back to the hospital with nausea, vomiting, constipation and cough. 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 Centeno ID, recommending cartilage consultation for further managing Better tolerating soft diet and water today BMP 2241, hyponatremia with metabolic acidosis bicarbonate 17, renal following patient on Lasix Received a call from the nurse patient feeling anxious and asking for pain medication Appreciate GI consultation, status post EGD, report reviewed showed>> Gastroesophageal reflex, gastritis, gastroparesis, arousable esophagitis with stricture dilated 15 mm, GI recommended PPI intravenously twice a day, gastric emptying study and Reglan Continue iv antibiotic per ID doxycycline, Diflucan, ceftriaxone, found to be cryptococcus pneumonia patient will need amphotericin B which will be high risk for the transplanted kidney Appreciate pulmonology input, plan for ABL if sputum sample is not sufficient Appreciate nephrology consultation, hold mycophenolate for now due to cryptococcus infection, patient may need hemodialysis earlier than expected, resumed Lasix O2 DuoNeb Continue prednisone , tacrolimus Aaron Arana MD Nov 09, 2016 14:38
[2016-11-09] MEDS: cefTRIAXone INJ 1,000 MG in SODIUM CHLORIDE 0.9% INJ 100 ML IV SCH (16:08)
[2016-11-09] MEDS: LORazepam 2 MG/ML VIAL IV PUSH PRN (17:07)
--- NOTE | 2016-11-09 17:56 | HHI.PR ---
Subjective Remarks 66 YOWM with Renal transplant, CKD,CHF, On NC No Fever Cough, not able to expactorate On 4LNC, comfortable Objective Vital Signs Vital Signs Date Time Temp Pulse Resp B/P Pulse Ox O2 Delivery O2 Flow Rate FiO2 11/09/16 16:00 97.8 65 16 132/62 92 11/09/16 12:00 97.8 65 16 121/59 93 11/09/16 10:44 94 Nasal Cannula 4.00 11/09/16 10:30 64 11/09/16 09:30 92 Nasal Cannula 4.00 Humidified 11/09/16 08:00 97.8 64 16 110/55 92 11/09/16 04:00 Nasal Cannula 4.00 Humidified 11/09/16 04:00 97.4 64 18 115/54 93 11/09/16 00:00 97.7 58 18 119/57 93 11/09/16 00:00 Nasal Cannula 4.00 Humidified 11/08/16 21:42 93 Nasal Cannula 4.00 11/08/16 20:00 Nasal Cannula 5.00 Humidified 11/08/16 20:00 98.4 62 20 120/57 90 11/08/16 19:57 62 11/08/16 19:11 Nasal Cannula 5.00 Humidified I/O 11/08/16 11/08/16 11/08/16 11/09/16 11/09/16 11/09/16 07:00 15:00 23:00 07:00 15:00 23:00 Intake Total 280 ml 240 ml 460 ml 680 ml Output Total 400 ml 100 ml 750 ml 350 ml 400 ml Balance -120 ml 140 ml -290 ml -350 ml 280 ml Intake Oral 240 ml 240 ml 460 ml 480 ml Oral Supplement 40 ml IV Total 200 ml Output Urine Total 400 ml 100 ml 750 ml 350 ml 400 ml # Bowel Movements 0 2 Result Diagram: 11/09/1660411/09/16604 Objective Remarks GENERAL: MBMN, NAD SKIN: Warm and dry. HEAD: Normocephalic. EYES: No scleral icterus. No injection or drainage. NECK: Supple, trachea midline. No JVD or lymphadenopathy. CARDIOVASCULAR: Regular rate and rhythm without murmurs, gallops, or rubs. RESPIRATORY: Breath sounds equal bilaterally. No accessory muscle use. rales at right base GASTROINTESTINAL: Abdomen soft, non-tender, nondistended. MUSCULOSKELETAL: No cyanosis, or edema. BACK: Nontender without obvious deformity. No CVA tenderness. A/P Assessment and Plan Right lung Pneumonia Renal Transplant CKD CHF PLAN: Cont Abx per ID Supplement [address] Centeno Clinically improving. Stable pulm, available prn over weekend. Pravin Ward MD Nov 09, 2016 17:56
[2016-11-09] MEDS: EPOETIN ALFA 10,000 UNITS/ML VIAL IV PRN (18:51)
[2016-11-09] MEDS: NIFEdipine 90 MG SUSTAINED RELEASE TAB PO SCH (22:15)
[2016-11-09] MEDS: LORazepam 1 MG TAB PO SCH (22:17)
[2016-11-09] MEDS: INSULIN DETEMIR 100 UNITS/ML VIAL SQ SCH (22:27)
--- NOTE | 2016-11-09 23:51 | MB ---
cc: DILLON CORRALES DO DATE OF CONSULTATION November 09, 2016 REASON FOR CONSULTATION Aortic stenosis with congestive heart failure. HISTORY OF PRESENT ILLNESS Kobi Abbott is a pleasant 66-year-old male who recently has been in and out of the hospital multiple times since the beginning of October. He presented on November 04, 2016 with fevers, chills and night sweats. He was diagnosed with sepsis, possibly due to hospital-acquired pneumonia. Previously he was here from October 17 through October 29 for fungemia as well as congestive heart failure exacerbation. He was discharged but then returned due to nausea and vomiting for which the patient was treated for constipation. After being discharged he had episodes of vomiting with blood-tinged emesis as well as the fevers and chills so he decided that he needed to present back to the hospital. He also notes that he has had dysphagia for the last few weeks. During an EGD he was found to have a stricture which was dilated as well as he has gastroparesis. During this hospitalization he also had acute kidney injury on his chronic kidney disease with a history of kidney transplant and has been restarted on dialysis. I was asked to see him in consideration of his aortic stenosis and congestive heart failure. In seeing him he is currently on dialysis, mildly lethargic, denies chest pain or shortness of breath. PAST MEDICAL HISTORY 1. Severe aortic stenosis (mean gradient __, aortic valve area 0.88, October 19, 2016). 2. Cardiomyopathy with an ejection fraction of 35-40% by echocardiogram (October 19, 2016). 3. Sepsis with hospital-acquired pneumonia. 4. Recent fungemia. 5. Acute kidney injury on chronic kidney disease with a history of renal transplant, currently on dialysis. 6. Diabetes mellitus. 7. Hypertension. 8. Atrial fibrillation. 9. Peripheral artery disease including carotid artery disease. 10. Renal transplant (2014). 11. COPD. 12. Hyperlipidemia. 13. Hepatitis C. PAST SURGICAL HISTORY 1. Renal transplant on the right (2014). 2. Left foot abscess resection (August 19, 2016). 3. Bilateral CEA. 4. Ureteral stent placement. 5. Right knee arthroscopy. 6. Left AV fistula placement. ALLERGIES NO KNOWN DRUG ALLERGIES. MEDICATIONS 1. Prednisone 5 milligrams daily. 2. Lyrica 25 milligrams t.i.d. 3. Spiriva 18 micrograms daily. 4. Fluconazole 400 milligrams daily. 5. Ativan 3 milligrams every night. 6. Albuterol as needed. 7. Labetalol 100 milligrams b.i.d. 8. Clonidine 0.1 milligrams daily. 9. Nifedipine ER 90 milligrams every night. 10. Hydralazine 25 milligrams every 8 hours. 11. Linzess 290 micrograms daily as needed for constipation. 12. CellCept 500 milligrams b.i.d. 13. Tacrolimus 1 milligram every 12 hours. 14. NovoLog sliding scale. 15. Lantus 18 units nightly. 16. Iron 200 milligrams daily. 17. Lasix 20 milligrams b.i.d. 18. Isosorbide mononitrate ER 30 milligrams daily 19. Hydrocodone/acetaminophen 10/325 milligrams every 8 hours as needed for pain. SOCIAL HISTORY The patient previously smoked but quit 14 years ago. Denies alcohol or drug abuse. FAMILY HISTORY Denies premature coronary artery disease or sudden cardiac within the family. REVIEW OF SYSTEMS 14-systems were reviewed including osteopathic pertinent positives and negatives above, otherwise negative. PHYSICAL EXAMINATION VITAL SIGNS: Temperature 97.8, heart rate 65, blood pressure 132/62, respirations 16, pulse ox 92% on 4 liters. GENERAL: In general, the patient is currently on hemodialysis, mildly lethargic but all arousable. Alert, awake and oriented x3. No acute distress. HEENT: Extraocular muscles intact. Mucous membranes moist. NECK: Supple. No JVD at 45 degrees. No carotid bruits heard bilaterally. Carotid upstroke is brisk in nature. HEART: Heart is regular rate and rhythm. Positive first and second heart sounds with a 3/6 crescendo-decrescendo murmur to the right sternal border. LUNGS: Lungs have decreased breath sounds bilaterally but no overt wheezes, rales or rhonchi. ABDOMEN: Soft, nontender, nondistended. No organomegaly noted. EXTREMITIES: Show no clubbing, cyanosis or edema. Left AV fistula noted. NEUROLOGICALLY: No focal deficits. SKIN: Warm, dry and intact. OSTEOPATHIC: No kyphoscoliosis, lordosis or paraspinal tender points. IMPRESSION 1. Sepsis with hospital-acquired pneumonia. 2. Recent fungemia. 3. Severe aortic stenosis by echocardiogram as above. 4. Cardiomyopathy with an ejection fraction of 35-40% by echocardiogram (October 19, 2016). 5. Diabetes mellitus. 6. Acute kidney injury on chronic kidney disease with history of renal transplant, currently on dialysis. 7. History of hypertension. 8. History of peripheral artery disease. RECOMMENDATIONS 1. Mr. Abbott has been in and out of the hospital the past few months and appears to have hospital-acquired pneumonia for which he is currently being treated. 2. His acute kidney injury is most likely due to poor oral intake as well as his emesis leading to dehydration and is currently on dialysis. 3. Fluid management per nephrology and dialysis at this time. 4. As far as his aortic stenosis goes as well as cardiomyopathy this needs to be evaluated at sometime, although, with his current hospitalization as long as he is hemodynamically stable this may not be the most appropriate time with his current condition. 5. We will follow him throughout his hospital course and determine whether this needs to be worked up inpatient versus outpatient. His recent hospitalizations do not seem to be a consequence of his current ___ and congestive heart failure and so most likely this will be done outpatient once he is stabilized. 6. Further recommendations will be made based on the hospital course. Thank you for allowing me to see Kobi Abbott. If there are any questions please do not hesitate to call. Dillon Corrales DO VGP/EO /10:52 PM /11:30 PM
[2016-11-10] VITALS (9 sets, daily range): BP systolic 130–155; BP diastolic 60–87; PULSE 67–74; RESP 18–20; TEMP 97.7–99; O2SAT 90–95
[2016-11-10] MEDS: LOW DOSE INSULIN NOVOLOG SUPPLEMENTAL SCALE SQ SCH ×4 (05:57→20:42)
[2016-11-10] MEDS: hydrALAZINE HCL 25 MG TAB PO SCH ×3 (06:02→20:32)
[2016-11-10] MEDS: TACROLIMUS 1 MG CAP PO SCH ×2 (06:02→18:26)
[2016-11-10] MEDS: METOCLOPRAMIDE HCL 10 MG/2 ML VIAL IV PUSH SCH ×3 (06:03→20:33)
[2016-11-10 06:16] LABS: AUTOMATED NEUTROPHIL # 4.9 TH/MM3 (1.8-7.7); BASOPHIL % 0.7 % (0.0-2.0); EOSINOPHIL % 0.3 % (0.0-4.0); HEMATOCRIT 34.6 % (39.0-51.0); HEMO FLAGS DIFF FINAL; LYMPH % 13.1 % (9.0-44.0); LYMPHOCYTE # 0.9 TH/MM3 (1.0-4.8); MEAN CORPUSCULAR HEMOGLOBIN 27.3 PG (27.0-34.0); MEAN CORPUSCULAR HGB CONC 33.3 % (32.0-36.0); MONO % 11.8 % (0.0-8.0); NEUT % 74.1 % (16.0-70.0); PLATELET COUNT 224 TH/MM3 (150-450); RED BLOOD COUNT 4.21 MIL/MM3 (4.50-5.90); RED CELL DISTRIBUTION WIDTH 15.9 % (11.6-17.2); WHITE BLOOD COUNT 6.5 TH/MM3 (4.0-11.0)
[2016-11-10 07:05] LABS: BICARBONATE 27.8 MEQ/L (21.0-32.0); POTASSIUM 3.8 MEQ/L (3.5-5.1)
[2016-11-10] MEDS: FLUCONAZOLE 400 MG PREMIX BAG 200 ML IV SCH (08:13)
[2016-11-10] MEDS: DOXYCYCLINE HYCLATE 100 MG TAB PO SCH ×2 (08:14→20:32)
[2016-11-10] MEDS: TIOTROPIUM BROMIDE 18 MCG INH INH SCH (08:14)
[2016-11-10] MEDS: predniSONE 5 MG TAB PO SCH (08:15)
[2016-11-10] MEDS: PREGABALIN 25 MG CAP PO SCH ×3 (08:15→18:26)
[2016-11-10] MEDS: ACETAMINOPHEN/HYDROcodone 325 MG/7.5 MG TAB PO PRN ×2 (08:15→16:41)
[2016-11-10] MEDS: FUROSEMIDE 20 MG TAB PO SCH ×2 (08:15→18:26)
[2016-11-10] MEDS: DOCUSATE SODIUM 50 MG/SENNA 8.6 MG TAB PO SCH ×2 (08:16→20:32)
[2016-11-10] MEDS: MULTIVITAMIN TAB PO SCH (08:16)
[2016-11-10] MEDS: FERROUS SULFATE 325 MG (65 MG ELEMENTAL IRON) TAB PO SCH (08:16)
[2016-11-10] MEDS: SODIUM BICARBONATE 650 MG TAB PO SCH (08:16)
[2016-11-10] MEDS: ISOSORBIDE MONONITRATE 30 MG TAB PO SCH (08:20)
[2016-11-10] MEDS: POLYETHYLENE GLYCOL 17 GM PKG PO SCH ×2 (08:21)
[2016-11-10] MEDS: cloNIDine HCL 0.1 MG TAB PO SCH (08:21)
[2016-11-10] MEDS: LACTULOSE SYRUP 20 GM/30 ML CUP PO SCH (08:21)
[2016-11-10] MEDS: SODIUM CHLORIDE 0.9% FLUSH 10 ML FLUSH IV FLUSH SCH ×2 (08:21→20:33)
[2016-11-10] MEDS: LABETALOL HCL 100 MG TAB PO SCH ×2 (08:22→20:32)
--- NOTE | 2016-11-10 10:58 | HHI.PR ---
Subjective Remarks Patient stated he has less cough today g no f/c d/w ID she ould like to have his pilm edema managed by cardio prior to decide on need for BAL Objective Vitals Vital Signs Date Time Temp Pulse Resp B/P Pulse Ox O2 Delivery O2 Flow Rate FiO2 11/10/16 09:38 90 Nasal Cannula 5.00 11/10/16 09:00 71 11/10/16 08:26 90 Nasal Cannula 5.00 11/10/16 08:00 98.5 71 18 135/61 90 11/10/16 04:00 98.0 71 20 144/67 95 11/10/16 00:00 98.1 68 20 130/87 91 11/09/16 21:42 79 11/09/16 21:00 Nasal Cannula 5.00 Humidified 11/09/16 20:00 97.8 83 18 140/65 91 11/09/16 16:00 97.8 65 16 132/62 92 11/09/16 12:00 97.8 65 16 121/59 93 I/O 11/09/16 11/09/16 11/09/16 11/10/16 11/10/16 11/10/16 07:00 15:00 23:00 07:00 15:00 23:00 Intake Total 680 ml 240 ml 480 ml Output Total 350 ml 400 ml 3300 ml 350 ml Balance -350 ml 280 ml -3060 ml 130 ml Intake Oral 480 ml 240 ml 480 ml IV Total 200 ml Output Urine Total 350 ml 400 ml 300 ml 350 ml Hemodialysis 3000 ml # Voids 1 2 # Bowel Movements 2 2 1 Result Diagram: 11/10/16 0545 11/10/16 0545 Objective Remarks GENERAL: This is a well-nourished, well-developed patient, in no apparent distress. SKIN: No rashes, warm and dry HEAD: Atraumatic. Normocephalic. EYES: Pupils equal round and reactive. Extraocular motions intact. No scleral icterus. ENT: Nose without bleeding, or drainage, Airway patent. NECK: Trachea midline. Supple CARDIOVASCULAR: Regular rate and rhythm without murmurs, gallops, or rubs. RESPIRATORY: positive crackles on the right base GASTROINTESTINAL: Abdomen soft, non-tender, nondistended. Positive bowel sounds MUSCULOSKELETAL: Extremities without clubbing, cyanosis, or edema. Pedal pulses appreciated NEUROLOGICAL: Awake and alert. Moves all extremity. Normal speech.no focal neurological deficit A/P Problem List: (1) Sepsis ICD Code: A41.9 Status: Acute (2) Aortic stenosis ICD Code: I35.0 Status: Chronic (3) FRANTZ (acute kidney injury) ICD Code: N17.9 Status: Acute (4) Constipation ICD Code: K59.00 Status: Acute (5) IDDM (insulin dependent diabetes mellitus) ICD Code: E11.9 Status: Chronic (6) HAP (hospital-acquired pneumonia) ICD Code: J18.9 Status: Acute Assessment and Plan This is a 66-year-old male with history of congestive heart failure, cardiomyopathy, aortic stenosis, chronic kidney disease status post kidney transplant, diabetes mellitus, and recent fungemia, presenting back to the hospital with nausea, vomiting, constipation and cough. 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 Taryn INTERIANO again today , rec further mangement of cardiogenic pulm congestion due to the priro to decide on need for ABL Better tolerating soft diet and water today BMP 2241, hyponatremia with metabolic acidosis bicarbonate 17, renal following patient on Lasix Received a call from the nurse patient feeling anxious and asking for pain medication Appreciate GI consultation, status post EGD, report reviewed showed>> Gastroesophageal reflex, gastritis, gastroparesis, arousable esophagitis with stricture dilated 15 mm, GI recommended PPI intravenously twice a day, gastric emptying study and Reglan Continue iv antibiotic per ID doxycycline, Diflucan, ceftriaxone, found to be cryptococcus pneumonia patient will need amphotericin B which will be high risk for the transplanted kidney Appreciate pulmonology input, plan for ABL if sputum sample is not sufficient Appreciate nephrology consultation, hold mycophenolate for now due to cryptococcus infection, patient may need hemodialysis earlier than expected, resumed Lasix O2 DuoNeb Continue prednisone , tacrolimus Aaron Arana MD Nov 10, 2016 10:58
[2016-11-10] MEDS: ONDANSETRON HCL 4 MG/2 ML VIAL IV PRN (11:29)
--- NOTE | 2016-11-10 11:44 | HHI.NPPN ---
Subjective History of Present Illness 66-year-old with nausea vomiting abdominal pain and has the cryptococcal infection Additional Remarks He was dialyzed yesterday. Labs were reviewed. Review of Systems General Constitutional: Fatigue Objective Data Data 11/09/16 11/10/16 19:00 07:00 Intake Total 680 ml 720 ml Output Total 400 ml 3650 ml Balance 280 ml -2930 ml Intake Oral 480 ml 720 ml IV Total 200 ml Output Urine Total 400 ml 650 ml Hemodialysis 3000 ml # Voids 3 # Bowel Movements 3 Vital Signs Date Time Temp Pulse Resp B/P Pulse Ox O2 Delivery O2 Flow Rate FiO2 11/10/16 09:38 90 Nasal Cannula 5.00 11/10/16 09:00 71 11/10/16 08:26 90 Nasal Cannula 5.00 11/10/16 08:00 98.5 71 18 135/61 90 11/10/16 04:00 98.0 71 20 144/67 95 11/10/16 00:00 98.1 68 20 130/87 91 11/09/16 21:42 79 11/09/16 21:00 Nasal Cannula 5.00 Humidified 11/09/16 20:00 97.8 83 18 140/65 91 11/09/16 16:00 97.8 65 16 132/62 92 11/09/16 12:00 97.8 65 16 121/59 93 -: 11/10/16 0545 11/10/16 0545 Physical Exam General Appearance: Well Developed Neck Neck Exam: Neck Supple Pulmonary Resp Exam: Decreased Bases Cardiology CV Exam: Regular, Murmur Gastrointestinal/Abdomen GI Exam: Soft, Non-Tender, Bowel Sounds Present Integumentary Skin Exam: Clear Extremeties Extremities Exam: Trace Edema Neurologic Neuro Exam: Alert Assessment/Plan Problem List: (1) Kidney transplant status, cadaveric Plan: Tacrolimus level was high, held, repeat level pending. Mycophenolate held due to sepsis. Now on dialysis. (2) DM (diabetes mellitus) Plan: Follow blood glucose (3) Aortic stenosis Plan: He has severe aortic stenosis (4) Hypertension Plan: Monitor blood pressure (5) Pneumonia Plan: ID is following on Ceftriaxone and fluconazole and Doxycycline. Problem Qualifiers (1) Pneumonia: Qualified Code: J18.9 - Pneumonia of right lung due to infectious organism, unspecified part of lung Thomas Cox MD Nov 10, 2016 11:44
--- NOTE | 2016-11-10 12:31 | PD.CARD.PN ---
Subjective Subjective Remarks No events over night Still with subjective chills, but overall feels better No chest pain Objective Medications Current Medications Medications (Trade) Dose Ordered Sig/Rai Route Start Time Stop Time Status Last Admin (NS Flush) 2 ml UNSCH PRN IV FLUSH 11/04/16 18:15 11/08/16 05:46 (NS Flush) 2 ml BID IV FLUSH 11/04/16 21:00 11/10/16 08:21 (Tylenol) 650 mg Q4H PRN PO 11/04/16 18:15 (Zofran Inj) 4 mg Q6H PRN IV 11/04/16 18:15 11/10/16 11:29 (Robitussin Dm 200-20 Mg/10 ml Liq) 10 ml Q4H PRN PO 11/04/16 18:15 11/05/16 10:19 (Heparin Inj) 5,000 units Q8H SQ 11/04/16 22:00 Hold 11/06/16 05:12 (Coreen-Colace) 1 tab BID PO 11/04/16 21:00 11/10/16 08:16 (Dulcolax Supp) 10 mg DAILY PRN RECTAL 11/04/16 18:30 11/08/16 20:55 (Lactulose Liq) 30 ml DAILY PO 11/05/16 09:00 11/09/16 16:19 (Catapres) 0.1 mg DAILY PO 11/05/16 09:00 11/08/16 11:45 (Ferrous Sulfate) 325 mg DAILY PO 11/05/16 09:00 11/10/16 08:16 (Apresoline) 25 mg Q8HR PO 11/04/16 22:00 11/10/16 06:02 (Levemir Inj) 18 units HS SQ 11/04/16 21:00 11/09/16 22:27 (Imdur) 30 mg DAILY PO 11/05/16 09:00 11/10/16 08:20 (Trandate) 100 mg BID PO 11/04/16 21:00 11/10/16 08:22 (Ativan) 3 mg HS PO 11/04/16 21:00 11/09/16 22:17 (Procardia Xl) 90 mg HS PO 11/04/16 21:00 11/09/16 22:15 (Miralax) 17 gm DAILY PO 11/05/16 09:00 11/09/16 16:19 (Deltasone) 5 mg DAILY PO 11/05/16 09:00 11/10/16 08:15 (Lyrica) 25 mg TID PO 11/05/16 09:00 11/10/16 08:15 (Sodium Bicarbonate) 650 mg DAILY PO 11/05/16 09:00 11/10/16 08:16 (Prograf) 1 mg BID@ PO 11/04/16 18:30 11/10/16 06:02 (Spiriva Inh) 18 mcg DAILY INH 11/05/16 09:00 11/07/16 09:00 Patient Own Medication PT OWN MED: (Linaclotide (Linze... DAILY PRN PO 11/04/16 19:00 Hold (Theragran) 1 tab DAILY PO 11/05/16 09:00 11/10/16 08:16 (Vibratab) 100 mg Q12HR PO 11/05/16 22:00 11/10/16 08:14 (Lasix) 20 mg BID@ PO 11/06/16 18:00 11/10/16 08:15 (Protonix Inj) 40 mg Q12H IV PUSH 11/07/16 12:00 11/09/16 22:15 (Sparks 5-325 Mg) 1 tab Q4H PRN PO 11/07/16 14:00 (Sparks 7.5-325 Mg) 1 tab Q4H PRN PO 11/07/16 14:00 11/10/16 08:15 Lorazepam 0.5 mg 0.5 mg Q12H PRN IV PUSH 11/07/16 14:00 11/09/16 17:07 Fluconazole/ Sodium Chloride 200 ml @ 100 mls/hr Q24H IV 11/08/16 08:00 11/10/16 08:13 (Rocephin Inj/NS Inj) 100 ml @ 200 mls/hr Q24H IV 11/07/16 16:00 11/09/16 16:08 (Reglan Inj) 5 mg Q8HR IV PUSH 11/07/16 16:00 11/10/16 06:03 (D50w (Vial) Inj) 25 ml UNSCH PRN IV PUSH 11/08/16 18:00 (Glucagon Inj) 1 mg UNSCH PRN OTHER 11/08/16 18:00 Polyethylene Glycol 17 gm 17 gm DAILY PO 11/09/16 15:00 (NS 1000 ml Inj) 1,000 ml @ 0 mls/hr Q0M PRN IV 11/09/16 12:42 11/09/16 18:51 Heparin Sodium (Porcine) 8000 units 8,000 units UNSCH PRN IVF 11/09/16 12:45 Sodium Chloride 1,000 ml @ 200 mls/hr Q5H PRN IV 11/09/16 12:42 (NS 1000 ml Inj) 1,000 ml @ 0 mls/hr Q0M PRN IV 11/09/16 12:42 (Mannitol Inj) 12.5 gm UNSCH PRN IV 11/09/16 12:45 (Albumin 25% Inj) 25 gm UNSCH PRN IV 11/09/16 12:45 (NS Flush) 5 ml UNSCH PRN IV FLUSH 11/09/16 12:45 (Zofran Inj) 4 mg UNSCH PRN IV 11/09/16 12:45 11/09/16 18:53 (Tylenol) 650 mg UNSCH PRN PO 11/09/16 12:45 (Benadryl) 25 mg UNSCH PRN PO 11/09/16 12:45 (Nitrostat Sl) 0.4 mg UNSCH PRN SL 11/09/16 12:45 (Catapres) 0.1 mg UNSCH PRN PO 11/09/16 12:45 (Epogen Inj) 10,000 units UNSCH PRN IV 11/09/16 12:45 11/09/16 18:51 (Gelfoam 12 Mm/7 Mm Top) 1 foam UNSCH PRN TOP 11/09/16 12:45 11/09/16 18:52 Vital Signs / I&O Vital Signs Date Time Temp Pulse Resp B/P Pulse Ox O2 Delivery O2 Flow Rate FiO2 11/10/16 12:00 98.4 74 18 130/60 90 11/10/16 09:38 90 Nasal Cannula 5.00 11/10/16 09:00 71 11/10/16 08:26 90 Nasal Cannula 5.00 11/10/16 08:00 98.5 71 18 135/61 90 11/10/16 04:00 98.0 71 20 144/67 95 11/10/16 00:00 98.1 68 20 130/87 91 11/09/16 21:42 79 11/09/16 21:00 Nasal Cannula 5.00 Humidified 11/09/16 20:00 97.8 83 18 140/65 91 11/09/16 16:00 97.8 65 16 132/62 92 I/O 11/09/16 11/09/16 11/09/16 11/10/16 11/10/16 11/10/16 06:59 14:59 22:59 06:59 14:59 22:59 Intake Total 680 ml 240 ml 480 ml Output Total 350 ml 400 ml 3300 ml 350 ml Balance -350 ml 280 ml -3060 ml 130 ml Intake Oral 480 ml 240 ml 480 ml IV Total 200 ml Output Urine Total 350 ml 400 ml 300 ml 350 ml Hemodialysis 3000 ml # Voids 1 2 # Bowel Movements 2 2 1 Physical Exam GENERAL: NAD, AAOx3 SKIN: Warm and dry. HEAD: Atraumatic. Normocephalic. EYES: Pupils equal and round. No scleral icterus. No injection or drainage. ENT: No nasal bleeding or discharge. Mucous membranes pink and moist. NECK: Trachea midline. No JVD. CARDIOVASCULAR: Regular rate and rhythm. 3/6 crescendo-decrescendo systolic murmur RESPIRATORY: No accessory muscle use. Decreased breath sounds bilaterally GASTROINTESTINAL: Abdomen soft, non-tender, nondistended. Hepatic and splenic margins not palpable. MUSCULOSKELETAL: Extremities without clubbing, cyanosis, or edema. No obvious deformities. NEUROLOGICAL: Awake and alert. No obvious cranial nerve deficits. Motor grossly within normal limits. Five out of 5 muscle strength in the arms and legs. Normal speech. PSYCHIATRIC: Appropriate mood and affect; insight and judgment normal. Laboratory Laboratory Tests Test 11/10/16 05:45 White Blood Count 6.5 TH/MM3 Red Blood Count 4.21 MIL/MM3 Hemoglobin 11.5 GM/DL Hematocrit 34.6 % Mean Corpuscular Volume 82.0 FL Mean Corpuscular Hemoglobin 27.3 PG Mean Corpuscular Hemoglobin 33.3 % Concent Red Cell Distribution Width 15.9 % Platelet Count 224 TH/MM3 Mean Platelet Volume 9.1 FL Neutrophils (%) (Auto) 74.1 % Lymphocytes (%) (Auto) 13.1 % Monocytes (%) (Auto) 11.8 % Eosinophils (%) (Auto) 0.3 % Basophils (%) (Auto) 0.7 % Neutrophils # (Auto) 4.9 TH/MM3 Lymphocytes # (Auto) 0.9 TH/MM3 Monocytes # (Auto) 0.8 TH/MM3 Eosinophils # (Auto) 0.0 TH/MM3 Basophils # (Auto) 0.0 TH/MM3 CBC Comment DIFF FINAL Differential Comment Sodium Level 133 MEQ/L Potassium Level 3.8 MEQ/L Chloride Level 96 MEQ/L Carbon Dioxide Level 27.8 MEQ/L Anion Gap 9 MEQ/L Blood Urea Nitrogen 53 MG/DL Creatinine 3.27 MG/DL Estimat Glomerular Filtration 19 ML/MIN Rate Random Glucose 135 MG/DL Calcium Level 9.1 MG/DL Phosphorus Level 3.1 MG/DL Assessment and Plan Problem List: (1) Pneumonia (2) Sepsis (3) Hypoxia (4) ESRD (end stage renal disease) (5) Kidney transplant status, cadaveric (6) Fever (7) Shortness of breath (8) Aortic stenosis Assessment and Plan 1) Continued hypoxia Right lobe infiltrate on CT/Xray Now more pulmonary edema looking Con't with HD and fluid management 2) Severe by echo Will eventually need work up, but currently would not with his overall status Still has his transplanted kidney with FRANTZ, would avoid dye 3) EF 35-40% by echo Con't with fluid management per nephrology Before yesterday, patient's weight was up over past few days and Ins greater than Outs... yesterday able to diurese 3L off Problem Qualifiers (1) Pneumonia: Qualified Code: J18.9 - Pneumonia of right lung due to infectious organism, unspecified part of lung Dillon Valdez DO Nov 10, 2016 12:31
[2016-11-10] MEDS: PANTOPRAZOLE SODIUM 40 MG VIAL IV PUSH SCH (14:23)
[2016-11-10] MEDS: cefTRIAXone INJ 1,000 MG in SODIUM CHLORIDE 0.9% INJ 100 ML IV SCH (16:39)
[2016-11-10] MEDS: NIFEdipine 90 MG SUSTAINED RELEASE TAB PO SCH (20:32)
[2016-11-10] MEDS: LORazepam 1 MG TAB PO SCH (20:32)
[2016-11-10] MEDS: ACETAMINOPHEN/HYDROcodone 325 MG/5 MG TAB PO PRN (20:33)
[2016-11-10] MEDS: INSULIN DETEMIR 100 UNITS/ML VIAL SQ SCH (20:43)
[2016-11-11] VITALS (10 sets, daily range): BP systolic 129–159; BP diastolic 60–71; PULSE 62–76; RESP 16–20; TEMP 97.3–98.6; O2SAT 90–96
[2016-11-11] MEDS: PANTOPRAZOLE SODIUM 40 MG VIAL IV PUSH SCH ×2 (00:22→12:50)
[2016-11-11] MEDS: ACETAMINOPHEN/HYDROcodone 325 MG/5 MG TAB PO PRN ×3 (00:23→08:39)
[2016-11-11] MEDS: TACROLIMUS 1 MG CAP PO SCH ×2 (06:35→18:11)
[2016-11-11] MEDS: METOCLOPRAMIDE HCL 10 MG/2 ML VIAL IV PUSH SCH ×3 (06:35→21:37)
[2016-11-11] MEDS: hydrALAZINE HCL 25 MG TAB PO SCH ×3 (06:35→21:37)
[2016-11-11] MEDS: LOW DOSE INSULIN NOVOLOG SUPPLEMENTAL SCALE SQ SCH ×4 (06:36→21:41)
[2016-11-11] MEDS: SODIUM BICARBONATE 650 MG TAB PO SCH (08:38)
[2016-11-11] MEDS: DOCUSATE SODIUM 50 MG/SENNA 8.6 MG TAB PO SCH ×2 (08:39→20:17)
[2016-11-11] MEDS: PREGABALIN 25 MG CAP PO SCH ×3 (08:39→18:11)
[2016-11-11] MEDS: MULTIVITAMIN TAB PO SCH (08:39)
[2016-11-11] MEDS: predniSONE 5 MG TAB PO SCH (08:40)
[2016-11-11] MEDS: DOXYCYCLINE HYCLATE 100 MG TAB PO SCH ×2 (08:40→20:17)
[2016-11-11] MEDS: FERROUS SULFATE 325 MG (65 MG ELEMENTAL IRON) TAB PO SCH (08:41)
[2016-11-11] MEDS: ISOSORBIDE MONONITRATE 30 MG TAB PO SCH (08:41)
[2016-11-11] MEDS: LABETALOL HCL 100 MG TAB PO SCH ×2 (08:41→20:16)
[2016-11-11] MEDS: cloNIDine HCL 0.1 MG TAB PO SCH (08:41)
[2016-11-11] MEDS: FUROSEMIDE 20 MG TAB PO SCH (08:42)
[2016-11-11] MEDS: FLUCONAZOLE 400 MG PREMIX BAG 200 ML IV SCH (08:42)
[2016-11-11] MEDS: SODIUM CHLORIDE 0.9% FLUSH 10 ML FLUSH IV FLUSH SCH ×2 (08:43→20:17)
[2016-11-11] MEDS: POLYETHYLENE GLYCOL 17 GM PKG PO SCH ×2 (08:43→08:44)
[2016-11-11] MEDS: TIOTROPIUM BROMIDE 18 MCG INH INH SCH (08:43)
[2016-11-11] MEDS: LACTULOSE SYRUP 20 GM/30 ML CUP PO SCH (08:43)
--- NOTE | 2016-11-11 09:12 | HHI.NPPN ---
Subjective History of Present Illness 66-year-old with nausea vomiting abdominal pain and has the cryptococcal infection Additional Remarks Poor urine output continues. Likely needs dialysis again tomorrow. Review of Systems General Constitutional: Fatigue Objective Data Data 11/10/16 11/11/16 18:59 06:59 Intake Total 920 ml Output Total 200 ml Balance 920 ml -200 ml Intake Oral 720 ml IV Total 200 ml Output Urine Total 200 ml # Voids 2 # Bowel Movements 1 Vital Signs Date Time Temp Pulse Resp B/P Pulse Ox O2 Delivery O2 Flow Rate FiO2 11/11/16 08:00 97.6 67 18 134/61 92 11/11/16 04:00 97.8 64 16 136/66 93 11/11/16 04:00 Nasal Cannula 4.00 11/11/16 00:24 98.6 65 20 134/64 91 11/11/16 00:00 Nasal Cannula 4.00 11/10/16 20:10 69 11/10/16 20:00 97.7 69 18 155/70 92 11/10/16 20:00 Nasal Cannula 4.00 11/10/16 16:00 99.0 67 18 130/60 93 11/10/16 12:00 98.4 74 18 130/60 90 11/10/16 09:38 90 Nasal Cannula 5.00 -: 11/10/16 0545 11/10/16 0545 Physical Exam General Appearance: Well Developed Neck Neck Exam: Neck Supple Pulmonary Resp Exam: Decreased Bases Cardiology CV Exam: Regular, Murmur Gastrointestinal/Abdomen GI Exam: Soft, Non-Tender, Bowel Sounds Present Integumentary Skin Exam: Clear Extremeties Extremities Exam: Trace Edema Neurologic Neuro Exam: Alert Assessment/Plan Problem List: (1) Kidney transplant status, cadaveric Plan: Tacrolimus level was high on 11/10 as well, continue to hold it. r Mycophenolate held due to sepsis. Now on dialysis. He may end up on dialysis permanently. (2) DM (diabetes mellitus) Plan: Follow blood glucose (3) Aortic stenosis Plan: He has severe aortic stenosis, cardiology note reviewed. Not stable for workup. (4) Hypertension Plan: Monitor blood pressure (5) Pneumonia Plan: ID is following on Ceftriaxone and fluconazole and Doxycycline. Problem Qualifiers (1) Pneumonia: Qualified Code: J18.9 - Pneumonia of right lung due to infectious organism, unspecified part of lung Hoskote,Thomas MD Nov 11, 2016 09:12
--- NOTE | 2016-11-11 11:51 | PD.CARD.PN ---
Subjective Subjective Remarks No events overnight No chest pain Feels his breathing is somewhat better, still on 4L Objective Medications Current Medications Medications (Trade) Dose Ordered Sig/Rai Route Start Time Stop Time Status Last Admin (NS Flush) 2 ml UNSCH PRN IV FLUSH 11/04/16 18:15 11/08/16 05:46 (NS Flush) 2 ml BID IV FLUSH 11/04/16 21:00 11/11/16 08:43 (Tylenol) 650 mg Q4H PRN PO 11/04/16 18:15 (Zofran Inj) 4 mg Q6H PRN IV 11/04/16 18:15 11/10/16 11:29 (Robitussin Dm 200-20 Mg/10 ml Liq) 10 ml Q4H PRN PO 11/04/16 18:15 11/05/16 10:19 (Heparin Inj) 5,000 units Q8H SQ 11/04/16 22:00 Hold 11/06/16 05:12 (Coreen-Colace) 1 tab BID PO 11/04/16 21:00 11/11/16 08:39 (Dulcolax Supp) 10 mg DAILY PRN RECTAL 11/04/16 18:30 11/08/16 20:55 (Lactulose Liq) 30 ml DAILY PO 11/05/16 09:00 11/09/16 16:19 (Catapres) 0.1 mg DAILY PO 11/05/16 09:00 11/11/16 08:41 (Ferrous Sulfate) 325 mg DAILY PO 11/05/16 09:00 11/11/16 08:41 (Apresoline) 25 mg Q8HR PO 11/04/16 22:00 11/11/16 06:35 (Levemir Inj) 18 units HS SQ 11/04/16 21:00 11/10/16 20:43 (Imdur) 30 mg DAILY PO 11/05/16 09:00 11/11/16 08:41 (Trandate) 100 mg BID PO 11/04/16 21:00 11/11/16 08:41 (Ativan) 3 mg HS PO 11/04/16 21:00 11/10/16 20:32 (Procardia Xl) 90 mg HS PO 11/04/16 21:00 11/10/16 20:32 (Miralax) 17 gm DAILY PO 11/05/16 09:00 11/09/16 16:19 (Deltasone) 5 mg DAILY PO 11/05/16 09:00 11/11/16 08:40 (Lyrica) 25 mg TID PO 11/05/16 09:00 11/11/16 08:39 (Sodium Bicarbonate) 650 mg DAILY PO 11/05/16 09:00 11/11/16 08:38 (Prograf) 1 mg BID@06,18 PO 11/04/16 18:30 11/11/16 06:35 (Spiriva Inh) 18 mcg DAILY INH 11/05/16 09:00 11/07/16 09:00 Patient Own Medication PT OWN MED: (Linaclotide (Linze... DAILY PRN PO 11/04/16 19:00 Hold (Theragran) 1 tab DAILY PO 11/05/16 09:00 11/11/16 08:39 (Vibratab) 100 mg Q12HR PO 11/05/16 22:00 11/11/16 08:40 (Protonix Inj) 40 mg Q12H IV PUSH 11/07/16 12:00 11/11/16 00:22 (Hematite 5-325 Mg) 1 tab Q4H PRN PO 11/07/16 14:00 11/11/16 08:39 (Hematite 7.5-325 Mg) 1 tab Q4H PRN PO 11/07/16 14:00 11/10/16 16:41 Lorazepam 0.5 mg 0.5 mg Q12H PRN IV PUSH 11/07/16 14:00 11/09/16 17:07 Fluconazole/ Sodium Chloride 200 ml @ 100 mls/hr Q24H IV 11/08/16 08:00 11/11/16 08:42 (Rocephin Inj/NS Inj) 100 ml @ 200 mls/hr Q24H IV 11/07/16 16:00 11/10/16 16:39 (Reglan Inj) 5 mg Q8HR IV PUSH 11/07/16 16:00 11/11/16 06:35 (D50w (Vial) Inj) 25 ml UNSCH PRN IV PUSH 11/08/16 18:00 (Glucagon Inj) 1 mg UNSCH PRN OTHER 11/08/16 18:00 Polyethylene Glycol 17 gm 17 gm DAILY PO 11/09/16 15:00 (NS 1000 ml Inj) 1,000 ml @ 0 mls/hr Q0M PRN IV 11/09/16 12:42 11/09/16 18:51 Heparin Sodium (Porcine) 8000 units 8,000 units UNSCH PRN IVF 11/09/16 12:45 Sodium Chloride 1,000 ml @ 200 mls/hr Q5H PRN IV 11/09/16 12:42 (NS 1000 ml Inj) 1,000 ml @ 0 mls/hr Q0M PRN IV 11/09/16 12:42 (Mannitol Inj) 12.5 gm UNSCH PRN IV 11/09/16 12:45 (Albumin 25% Inj) 25 gm UNSCH PRN IV 11/09/16 12:45 (NS Flush) 5 ml UNSCH PRN IV FLUSH 11/09/16 12:45 (Zofran Inj) 4 mg UNSCH PRN IV 11/09/16 12:45 11/09/16 18:53 (Tylenol) 650 mg UNSCH PRN PO 11/09/16 12:45 (Benadryl) 25 mg UNSCH PRN PO 11/09/16 12:45 (Nitrostat Sl) 0.4 mg UNSCH PRN SL 11/09/16 12:45 (Catapres) 0.1 mg UNSCH PRN PO 11/09/16 12:45 (Epogen Inj) 10,000 units UNSCH PRN IV 11/09/16 12:45 11/09/16 18:51 (Gelfoam 12 Mm/7 Mm Top) 1 foam UNSCH PRN TOP 11/09/16 12:45 11/09/16 18:52 (Lasix) 80 mg DAILY@09,18 PO 11/11/16 18:00 Vital Signs / I&O Vital Signs Date Time Temp Pulse Resp B/P Pulse Ox O2 Delivery O2 Flow Rate FiO2 11/11/16 10:30 96 Nasal Cannula 5.00 11/11/16 08:00 97.6 67 18 134/61 92 11/11/16 04:00 97.8 64 16 136/66 93 11/11/16 04:00 Nasal Cannula 4.00 11/11/16 00:24 98.6 65 20 134/64 91 11/11/16 00:00 Nasal Cannula 4.00 11/10/16 20:10 69 11/10/16 20:00 97.7 69 18 155/70 92 11/10/16 20:00 Nasal Cannula 4.00 11/10/16 16:00 99.0 67 18 130/60 93 11/10/16 12:00 98.4 74 18 130/60 90 I/O 11/10/16 11/10/16 11/10/16 11/11/16 11/11/16 11/11/16 07:00 15:00 23:00 07:00 15:00 23:00 Intake Total 480 ml 920 ml Output Total 350 ml 200 ml Balance 130 ml 920 ml -200 ml Intake Oral 480 ml 720 ml IV Total 200 ml Output Urine Total 350 ml 200 ml # Voids 2 2 # Bowel Movements 1 1 Physical Exam GENERAL: NAD, AAOx3 SKIN: Warm and dry. HEAD: Atraumatic. Normocephalic. EYES: Pupils equal and round. No scleral icterus. No injection or drainage. ENT: No nasal bleeding or discharge. Mucous membranes pink and moist. NECK: Trachea midline. No JVD. CARDIOVASCULAR: Regular rate and rhythm. 3/6 crescendo-decrescendo systolic murmur RESPIRATORY: No accessory muscle use. Decreased breath sounds bilaterally GASTROINTESTINAL: Abdomen soft, non-tender, nondistended. Hepatic and splenic margins not palpable. MUSCULOSKELETAL: Extremities without clubbing, cyanosis, or edema. No obvious deformities. NEUROLOGICAL: Awake and alert. No obvious cranial nerve deficits. Motor grossly within normal limits. Five out of 5 muscle strength in the arms and legs. Normal speech. PSYCHIATRIC: Appropriate mood and affect; insight and judgment normal. Assessment and Plan Problem List: (1) Pneumonia (2) Sepsis (3) Hypoxia (4) ESRD (end stage renal disease) (5) Kidney transplant status, cadaveric (6) Fever (7) Shortness of breath (8) Aortic stenosis Assessment and Plan 1) Continued hypoxia Right lobe infiltrate on CT/Xray Now more pulmonary edema looking Con't with HD and fluid management 2) Severe by echo Will eventually need work up, but currently would not with his overall status Still has his transplanted kidney with FRANTZ, would avoid dye 3) EF 35-40% by echo Con't with fluid management per nephrology Overall his weight had been increasing until HD on Saturday, per Nephrology planned HD tomorrow, will watch fluid balance Problem Qualifiers (1) Pneumonia: Qualified Code: J18.9 - Pneumonia of right lung due to infectious organism, unspecified part of lung Dillon Valdez DO Nov 11, 2016 11:51
--- NOTE | 2016-11-11 13:09 | HHI.PR ---
Subjective Remarks No acute events overnight. Afebrile, vital signs stable. Satting 92% on 5 L nasal cannula. Patient complains of pain with deep inspiration. Denies any chest pain/shortness of breath. Complains that his diet order does not let him eat what he wants. Objective Vitals Vital Signs Date Time Temp Pulse Resp B/P Pulse Ox O2 Delivery O2 Flow Rate FiO2 11/11/16 12:00 97.8 62 18 129/60 92 11/11/16 10:30 96 Nasal Cannula 5.00 11/11/16 08:00 97.6 67 18 134/61 92 11/11/16 04:00 97.8 64 16 136/66 93 11/11/16 04:00 Nasal Cannula 4.00 11/11/16 00:24 98.6 65 20 134/64 91 11/11/16 00:00 Nasal Cannula 4.00 11/10/16 20:10 69 11/10/16 20:00 97.7 69 18 155/70 92 11/10/16 20:00 Nasal Cannula 4.00 11/10/16 16:00 99.0 67 18 130/60 93 I/O 11/10/16 11/10/16 11/10/16 11/11/16 11/11/16 11/11/16 07:00 15:00 23:00 07:00 15:00 23:00 Intake Total 480 ml 920 ml Output Total 350 ml 200 ml Balance 130 ml 920 ml -200 ml Intake Oral 480 ml 720 ml IV Total 200 ml Output Urine Total 350 ml 200 ml # Voids 2 2 # Bowel Movements 1 1 Result Diagram: 11/10/16 0545 11/10/16 0545 Objective Remarks GENERAL: This is a well-nourished, well-developed patient, in no apparent distress. SKIN: No rashes, warm and dry HEAD: Atraumatic. Normocephalic. EYES: Pupils equal round and reactive. Extraocular motions intact. No scleral icterus. ENT: Nose without bleeding, or drainage, Airway patent. NECK: Trachea midline. Supple CARDIOVASCULAR: Regular rate and rhythm without murmurs, gallops, or rubs. RESPIRATORY: positive crackles on the right base GASTROINTESTINAL: Abdomen soft, non-tender, nondistended. Positive bowel sounds MUSCULOSKELETAL: Extremities without clubbing, cyanosis, or edema. Pedal pulses appreciated NEUROLOGICAL: Awake and alert. Moves all extremity. Normal speech.no focal neurological deficit A/P Problem List: (1) Sepsis ICD Code: A41.9 Status: Acute (2) Aortic stenosis ICD Code: I35.0 Status: Chronic (3) FRANTZ (acute kidney injury) ICD Code: N17.9 Status: Acute (4) Constipation ICD Code: K59.00 Status: Acute (5) IDDM (insulin dependent diabetes mellitus) ICD Code: E11.9 Status: Resolved (6) HAP (hospital-acquired pneumonia) ICD Code: J18.9 Status: Acute Assessment and Plan This is a 66-year-old male with history of congestive heart failure, cardiomyopathy, aortic stenosis, chronic kidney disease status post kidney transplant, diabetes mellitus, and recent fungemia, presenting back to the hospital with nausea, vomiting, constipation and cough. 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 History of aortic stenosis FRANTZ on CKD status post kidney transplant patient on mycophenolate and is on tacrolimus Hypertension Diabetes mellitus History of CHF, ACS, DF 35% plan for TAVR as an outpatient DVT prophylaxis with heparin Plan: Infectious disease consulted, antibiotics per ID. Recommended pulmonary consult as patient may need ABL. Sputum culture growing normal respiratory ally. Patient tolerating PO Nephrology consulted, patient currently on dialysis. May need permanent dialysis. Appreciate GI consultation, status post EGD, report reviewed showed>> Gastroesophageal reflex, gastritis, gastroparesis, arousable esophagitis with stricture dilated 15 mm, GI recommended PPI intravenously twice a day, gastric emptying study and Reglan Continue iv antibiotic per ID doxycycline, Diflucan, ceftriaxone, if found to be cryptococcus pneumonia patient will need amphotericin B which will be high risk for the transplanted kidney Appreciate pulmonology input, plan for ABL Appreciate nephrology consultation, hold mycophenolate for now due to cryptococcus infection, patient may currently on hemodialysis. Resume Lasix. O2 DuoNeb Continue prednisone, tacrolimus Anna Marie Lara MD R3 Nov 11, 2016 13:09
[2016-11-11] MEDS: cefTRIAXone INJ 1,000 MG in SODIUM CHLORIDE 0.9% INJ 100 ML IV SCH (16:24)
[2016-11-11] MEDS: FUROSEMIDE 80 MG TAB PO SCH (18:11)
[2016-11-11] MEDS: BISACODYL 10 MG SUPP RECTAL PRN (20:14)
[2016-11-11] MEDS: LORazepam 1 MG TAB PO SCH (20:16)
[2016-11-11] MEDS: NIFEdipine 90 MG SUSTAINED RELEASE TAB PO SCH (20:17)
[2016-11-11] MEDS: INSULIN DETEMIR 100 UNITS/ML VIAL SQ SCH (21:42)
[2016-11-12] VITALS (8 sets, daily range): BP systolic 121–143; BP diastolic 60–66; PULSE 66–88; RESP 16–18; TEMP 97.3–98.2; O2SAT 87–94
[2016-11-12] MEDS: PANTOPRAZOLE SODIUM 40 MG VIAL IV PUSH SCH ×3 (00:32→23:29)
[2016-11-12] MEDS: METOCLOPRAMIDE HCL 10 MG/2 ML VIAL IV PUSH SCH ×3 (05:50→21:12)
[2016-11-12] MEDS: TACROLIMUS 1 MG CAP PO SCH (05:50)
[2016-11-12] MEDS: hydrALAZINE HCL 25 MG TAB PO SCH ×3 (05:50→21:12)
[2016-11-12] MEDS: LOW DOSE INSULIN NOVOLOG SUPPLEMENTAL SCALE SQ SCH ×4 (06:00→21:16)
[2016-11-12 08:24] LABS: AUTOMATED NEUTROPHIL # 5.3 TH/MM3 (1.8-7.7); BASOPHIL # 0.1 TH/MM3 (0-0.2); BASOPHIL % 0.8 % (0.0-2.0); EOSINOPHIL # 0.1 TH/MM3 (0-0.4); EOSINOPHIL % 0.8 % (0.0-4.0); HEMATOCRIT 34.4 % (39.0-51.0); HEMO FLAGS DIFF FINAL; LYMPHOCYTE # 0.9 TH/MM3 (1.0-4.8); MEAN CELL VOLUME 82.5 FL (80.0-100.0); MEAN CORPUSCULAR HEMOGLOBIN 27.5 PG (27.0-34.0); MEAN CORPUSCULAR HGB CONC 33.4 % (32.0-36.0); MONO % 10.7 % (0.0-8.0); NEUT % 74.7 % (16.0-70.0); PLATELET COUNT 262 TH/MM3 (150-450); RED BLOOD COUNT 4.17 MIL/MM3 (4.50-5.90); RED CELL DISTRIBUTION WIDTH 15.7 % (11.6-17.2); WHITE BLOOD COUNT 7.1 TH/MM3 (4.0-11.0)
[2016-11-12] MEDS: LORazepam 2 MG/ML VIAL IV PUSH PRN (08:31)
[2016-11-12] MEDS: ACETAMINOPHEN/HYDROcodone 325 MG/7.5 MG TAB PO PRN ×3 (08:32→18:27)
[2016-11-12] MEDS: FLUCONAZOLE 400 MG PREMIX BAG 200 ML IV SCH (08:54)
[2016-11-12 09:00] LABS: BICARBONATE 25.9 MEQ/L (21.0-32.0); POTASSIUM 4.4 MEQ/L (3.5-5.1)
[2016-11-12] MEDS: PREGABALIN 25 MG CAP PO SCH ×3 (09:00→18:27)
[2016-11-12] MEDS: LACTULOSE SYRUP 20 GM/30 ML CUP PO SCH (09:00)
[2016-11-12] MEDS: POLYETHYLENE GLYCOL 17 GM PKG PO SCH ×2 (09:00)
--- NOTE | 2016-11-12 11:23 | HHI.PR ---
Subjective Remarks having hemodialysis no pain complains good po Objective Vitals Vital Signs Date Time Temp Pulse Resp B/P Pulse Ox O2 Delivery O2 Flow Rate FiO2 11/12/16 08:00 75 11/12/16 08:00 98.2 76 18 138/65 94 11/12/16 08:00 Nasal Cannula 4.00 11/12/16 05:20 97.3 68 18 126/60 91 11/12/16 04:00 Nasal Cannula 4.00 11/12/16 00:44 97.4 88 18 141/66 88 11/12/16 00:00 Nasal Cannula 4.00 11/11/16 20:58 97.3 76 20 159/71 90 11/11/16 20:36 92 Nasal Cannula 4.00 11/11/16 20:00 Nasal Cannula 2.00 11/11/16 20:00 75 11/11/16 16:00 97.9 64 18 142/63 94 11/11/16 12:00 97.8 62 18 129/60 92 I/O 11/11/16 11/11/16 11/11/16 11/12/16 11/12/16 11/12/16 07:00 15:00 23:00 07:00 15:00 23:00 Intake Total 720 ml 480 ml Output Total 700 ml 450 ml Balance 20 ml 30 ml Intake Oral 720 ml 480 ml Output Urine Total 700 ml 450 ml # Bowel Movements 0 Result Diagram: 11/12/16 0705 11/12/16 0705 Imaging Last Impressions Chest X-Ray 11/08/16 0600 Signed Impressions: Service Date/Time: November 05:09 - CONCLUSION: 1. Perihilar airspace disease greater on the right, likely pulmonary edema. 2. Small bilateral pleural effusions. Chung Handley MD Gastric Emptying Nuclear Medicine 11/08/16 0000 Signed Impressions: Service Date/Time: November 09:00 - CONCLUSION: 1. Delayed gastric emptying. 2. Improvement following IV Reglan. Ricardo Hansen MD Abdomen/Pelvis CT 11/04/16 1248 Signed Impressions: Service Date/Time: Friday, November 04, 2016 14:45 - CONCLUSION: 1. New large consolidation seen at the right hilar and infrahilar region. 2. Mild thickening of the distal esophagus. This is nonspecific. 3. Distention of the stomach. 4. Transplanted kidney in the right lower quadrant. There is a 2.9 cm cyst at the inferior transplanted kidney. 5. Very extensive atherosclerotic calcifications seen throughout the arterial system. Derrek Lopez MD Objective Remarks awake and alert, NAD anicteric lungs- decreased breath sounds, no rales or wheezes regular rhythm abdmen soft, good bowel sounds extremities no edema neuro exam- unremarkable A/P Problem List: (1) Sepsis ICD Code: A41.9 Status: Acute (2) Aortic stenosis ICD Code: I35.0 Status: Chronic (3) FRANTZ (acute kidney injury) ICD Code: N17.9 Status: Acute (4) Constipation ICD Code: K59.00 Status: Acute (5) IDDM (insulin dependent diabetes mellitus) ICD Code: E11.9 Status: Resolved (6) HAP (hospital-acquired pneumonia) ICD Code: J18.9 Status: Acute Assessment and Plan This is a 66-year-old male with history of congestive heart failure, cardiomyopathy, aortic stenosis, chronic kidney disease status post kidney transplant, diabetes mellitus, and recent fungemia, presenting back to the hospital with nausea, vomiting, constipation and cough. 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 tolerating current diet FRANTZ on CKD status post kidney transplant patient on mycophenolate and is on tacrolimus Hypertension Diabetes mellitus- good readings History of CHF, ACS, aortic stenosis EF 35% plan for TAVR as an outpatient DVT prophylaxis with heparin Plan: Patient tolerating PO Nephrology consulted, patient currently on dialysis. May need permanent dialysis. Appreciate GI consultation, status post EGD, report reviewed showed>> Gastroesophageal reflex, gastritis, gastroparesis, arousable esophagitis with stricture dilated 15 mm, GI recommended PPI intravenously twice a day, gastric emptying study and Reglan Continue iv antibiotic per ID doxycycline, Diflucan, ceftriaxone, if found to be cryptococcus pneumonia patient will need amphotericin B which will be high risk for the transplanted kidney Appreciate pulmonology input, plan for ABL Appreciate nephrology consultation, hold mycophenolate for now due to cryptococcus infection, patient may currently on hemodialysis. Resume Lasix. O2 DuoNeb Continue prednisone, tacrolimus Hien Adames MD Nov 12, 2016 11:23 Hien Adames MD Nov 12, 2016 11:23
[2016-11-12] MEDS: EPOETIN ALFA 10,000 UNITS/ML VIAL IV PRN (12:58)
--- NOTE | 2016-11-12 13:07 | HHI.NPPN ---
Subjective History of Present Illness 66-year-old with nausea vomiting abdominal pain and has the cryptococcal infection Additional Remarks Poor urine output continues. Review of Systems General Constitutional: Fatigue Objective Data Data 11/11/16 11/12/16 19:00 07:00 Intake Total 720 ml 480 ml Output Total 700 ml 450 ml Balance 20 ml 30 ml Intake Oral 720 ml 480 ml Output Urine Total 700 ml 450 ml # Bowel Movements 0 Vital Signs Date Time Temp Pulse Resp B/P Pulse Ox O2 Delivery O2 Flow Rate FiO2 11/12/16 12:20 94 Nasal Cannula 4.00 11/12/16 08:00 75 11/12/16 08:00 98.2 76 18 138/65 94 11/12/16 08:00 Nasal Cannula 4.00 11/12/16 05:20 97.3 68 18 126/60 91 11/12/16 04:00 Nasal Cannula 4.00 11/12/16 00:44 97.4 88 18 141/66 88 11/12/16 00:00 Nasal Cannula 4.00 11/11/16 20:58 97.3 76 20 159/71 90 11/11/16 20:36 92 Nasal Cannula 4.00 11/11/16 20:00 Nasal Cannula 2.00 11/11/16 20:00 75 11/11/16 16:00 97.9 64 18 142/63 94 -: 11/12/16 0705 11/12/16 0705 Physical Exam General Appearance: Well Developed Neck Neck Exam: Neck Supple Pulmonary Resp Exam: Decreased Bases Cardiology CV Exam: Regular, Murmur Gastrointestinal/Abdomen GI Exam: Soft, Non-Tender, Bowel Sounds Present Integumentary Skin Exam: Clear Extremeties Extremities Exam: Trace Edema Neurologic Neuro Exam: Alert Assessment/Plan Problem List: (1) Kidney transplant status, cadaveric Plan: Tacrolimus level high he has serious infection Cryptococcus/AV Stenosis d/w Drs. Oliva/Taryn need to treat Cryptococcal infection and as he has serious infection, we will stop his anti rejection medications wean off steroids seen during hemodialysis UF 3 L OFF Tolerating it well (2) DM (diabetes mellitus) Plan: Follow blood glucose (3) Aortic stenosis Plan: He has severe aortic stenosis, cardiology note reviewed. Not stable for workup. (4) Hypertension Plan: Monitor blood pressure (5) Pneumonia Plan: ID is following on Ceftriaxone and fluconazole and Doxycycline. Problem Qualifiers (1) Pneumonia: Qualified Code: J18.9 - Pneumonia of right lung due to infectious organism, unspecified part of lung Stacy Dias MD Nov 12, 2016 13:06
[2016-11-12] MEDS: cloNIDine HCL 0.1 MG TAB PO SCH (14:15)
[2016-11-12] MEDS: ISOSORBIDE MONONITRATE 30 MG TAB PO SCH (14:15)
[2016-11-12] MEDS: MULTIVITAMIN TAB PO SCH (14:15)
[2016-11-12] MEDS: SODIUM BICARBONATE 650 MG TAB PO SCH (14:15)
[2016-11-12] MEDS: FERROUS SULFATE 325 MG (65 MG ELEMENTAL IRON) TAB PO SCH (14:15)
[2016-11-12] MEDS: FUROSEMIDE 80 MG TAB PO SCH ×2 (14:15→18:27)
[2016-11-12] MEDS: DOCUSATE SODIUM 50 MG/SENNA 8.6 MG TAB PO SCH ×2 (14:15→21:12)
[2016-11-12] MEDS: LABETALOL HCL 100 MG TAB PO SCH ×2 (14:15→21:12)
[2016-11-12] MEDS: SODIUM CHLORIDE 0.9% FLUSH 10 ML FLUSH IV FLUSH SCH ×2 (14:16→21:12)
[2016-11-12] MEDS: DOXYCYCLINE HYCLATE 100 MG TAB PO SCH ×2 (14:16→21:13)
[2016-11-12] MEDS: TIOTROPIUM BROMIDE 18 MCG INH INH SCH (14:16)
[2016-11-12] MEDS: cefTRIAXone INJ 1,000 MG in SODIUM CHLORIDE 0.9% INJ 100 ML IV SCH (16:32)
--- NOTE | 2016-11-12 17:43 | PD.CARD.PN ---
Subjective Subjective Remarks Patient seen on HD earlier Just found out he will most likely lose his transplanted kidney, somewhat emotional at the time Objective Medications Current Medications Medications (Trade) Dose Ordered Sig/Rai Route Start Time Stop Time Status Last Admin (NS Flush) 2 ml UNSCH PRN IV FLUSH 11/04/16 18:15 11/08/16 05:46 (NS Flush) 2 ml BID IV FLUSH 11/04/16 21:00 11/12/16 14:16 (Tylenol) 650 mg Q4H PRN PO 11/04/16 18:15 (Zofran Inj) 4 mg Q6H PRN IV 11/04/16 18:15 11/10/16 11:29 (Robitussin Dm 200-20 Mg/10 ml Liq) 10 ml Q4H PRN PO 11/04/16 18:15 11/05/16 10:19 (Heparin Inj) 5,000 units Q8H SQ 11/04/16 22:00 Hold 11/06/16 05:12 (Coreen-Colace) 1 tab BID PO 11/04/16 21:00 11/12/16 14:15 (Dulcolax Supp) 10 mg DAILY PRN RECTAL 11/04/16 18:30 11/11/16 20:14 (Lactulose Liq) 30 ml DAILY PO 11/05/16 09:00 11/09/16 16:19 (Catapres) 0.1 mg DAILY PO 11/05/16 09:00 11/12/16 14:15 (Ferrous Sulfate) 325 mg DAILY PO 11/05/16 09:00 11/12/16 14:15 (Apresoline) 25 mg Q8HR PO 11/04/16 22:00 11/12/16 14:15 (Levemir Inj) 18 units HS SQ 11/04/16 21:00 11/11/16 21:42 (Imdur) 30 mg DAILY PO 11/05/16 09:00 11/12/16 14:15 (Trandate) 100 mg BID PO 11/04/16 21:00 11/12/16 14:15 (Ativan) 3 mg HS PO 11/04/16 21:00 11/11/16 20:16 (Procardia Xl) 90 mg HS PO 11/04/16 21:00 11/11/16 20:17 (Miralax) 17 gm DAILY PO 11/05/16 09:00 11/09/16 16:19 (Lyrica) 25 mg TID PO 11/05/16 09:00 11/12/16 14:15 (Sodium Bicarbonate) 650 mg DAILY PO 11/05/16 09:00 11/12/16 14:15 (Spiriva Inh) 18 mcg DAILY INH 11/05/16 09:00 11/12/16 14:16 Patient Own Medication PT OWN MED: (Linaclotide (Linze... DAILY PRN PO 11/04/16 19:00 Hold (Theragran) 1 tab DAILY PO 11/05/16 09:00 11/12/16 14:15 (Vibratab) 100 mg Q12HR PO 11/05/16 22:00 11/12/16 14:16 (Protonix Inj) 40 mg Q12H IV PUSH 11/07/16 12:00 11/12/16 14:16 ([place] 5-325 Mg) 1 tab Q4H PRN PO 11/07/16 14:00 11/11/16 08:39 ([place] 7.5-325 Mg) 1 tab Q4H PRN PO 11/07/16 14:00 11/12/16 14:15 Lorazepam 0.5 mg 0.5 mg Q12H PRN IV PUSH 11/07/16 14:00 11/12/16 08:31 Fluconazole/ Sodium Chloride 200 ml @ 100 mls/hr Q24H IV 11/08/16 08:00 11/12/16 08:54 (Rocephin Inj/NS Inj) 100 ml @ 200 mls/hr Q24H IV 11/07/16 16:00 11/12/16 16:32 (Reglan Inj) 5 mg Q8HR IV PUSH 11/07/16 16:00 11/12/16 14:16 (D50w (Vial) Inj) 25 ml UNSCH PRN IV PUSH 11/08/16 18:00 (Glucagon Inj) 1 mg UNSCH PRN OTHER 11/08/16 18:00 Polyethylene Glycol 17 gm 17 gm DAILY PO 11/09/16 15:00 (NS 1000 ml Inj) 1,000 ml @ 0 mls/hr Q0M PRN IV 11/09/16 12:42 11/09/16 18:51 Heparin Sodium (Porcine) 8000 units 8,000 units UNSCH PRN IVF 11/09/16 12:45 Sodium Chloride 1,000 ml @ 200 mls/hr Q5H PRN IV 11/09/16 12:42 (NS 1000 ml Inj) 1,000 ml @ 0 mls/hr Q0M PRN IV 11/09/16 12:42 (Mannitol Inj) 12.5 gm UNSCH PRN IV 11/09/16 12:45 (Albumin 25% Inj) 25 gm UNSCH PRN IV 11/09/16 12:45 (NS Flush) 5 ml UNSCH PRN IV FLUSH 11/09/16 12:45 (Zofran Inj) 4 mg UNSCH PRN IV 11/09/16 12:45 11/09/16 18:53 (Tylenol) 650 mg UNSCH PRN PO 11/09/16 12:45 (Benadryl) 25 mg UNSCH PRN PO 11/09/16 12:45 (Nitrostat Sl) 0.4 mg UNSCH PRN SL 11/09/16 12:45 (Catapres) 0.1 mg UNSCH PRN PO 11/09/16 12:45 (Epogen Inj) 10,000 units UNSCH PRN IV 11/09/16 12:45 11/12/16 12:58 (Gelfoam 12 Mm/7 Mm Top) 1 foam UNSCH PRN TOP 11/09/16 12:45 11/09/16 18:52 (Lasix) 80 mg DAILY@09,18 PO 11/11/16 18:00 11/12/16 14:15 Vital Signs / I&O Vital Signs Date Time Temp Pulse Resp B/P Pulse Ox O2 Delivery O2 Flow Rate FiO2 11/12/16 16:00 Nasal Cannula 4.00 11/12/16 13:00 Nasal Cannula 4.00 11/12/16 12:20 94 Nasal Cannula 4.00 11/12/16 08:00 75 11/12/16 08:00 98.2 76 18 138/65 94 11/12/16 08:00 Nasal Cannula 4.00 11/12/16 05:20 97.3 68 18 126/60 91 11/12/16 04:00 Nasal Cannula 4.00 11/12/16 00:44 97.4 88 18 141/66 88 11/12/16 00:00 Nasal Cannula 4.00 11/11/16 20:58 97.3 76 20 159/71 90 11/11/16 20:36 92 Nasal Cannula 4.00 11/11/16 20:00 Nasal Cannula 2.00 11/11/16 20:00 75 I/O 11/11/16 11/11/16 11/11/16 11/12/16 11/12/16 11/12/16 07:00 15:00 23:00 07:00 15:00 23:00 Intake Total 720 ml 480 ml Output Total 700 ml 450 ml 3000 ml Balance 20 ml 30 ml -3000 ml Intake Oral 720 ml 480 ml Output Urine Total 700 ml 450 ml Hemodialysis 3000 ml # Bowel Movements 0 Physical Exam GENERAL: NAD, AAOx3 SKIN: Warm and dry. HEAD: Atraumatic. Normocephalic. EYES: Pupils equal and round. No scleral icterus. No injection or drainage. ENT: No nasal bleeding or discharge. Mucous membranes pink and moist. NECK: Trachea midline. No JVD. CARDIOVASCULAR: Regular rate and rhythm. 3/6 crescendo-decrescendo systolic murmur RESPIRATORY: No accessory muscle use. Decreased breath sounds bilaterally GASTROINTESTINAL: Abdomen soft, non-tender, nondistended. Hepatic and splenic margins not palpable. MUSCULOSKELETAL: Extremities without clubbing, cyanosis, or edema. No obvious deformities. NEUROLOGICAL: Awake and alert. No obvious cranial nerve deficits. Motor grossly within normal limits. Five out of 5 muscle strength in the arms and legs. Normal speech. PSYCHIATRIC: Appropriate mood and affect; insight and judgment normal. Laboratory Laboratory Tests Test 11/12/16 07:05 White Blood Count 7.1 TH/MM3 Red Blood Count 4.17 MIL/MM3 Hemoglobin 11.5 GM/DL Hematocrit 34.4 % Mean Corpuscular Volume 82.5 FL Mean Corpuscular Hemoglobin 27.5 PG Mean Corpuscular Hemoglobin 33.4 % Concent Red Cell Distribution Width 15.7 % Platelet Count 262 TH/MM3 Mean Platelet Volume 8.9 FL Neutrophils (%) (Auto) 74.7 % Lymphocytes (%) (Auto) 13.0 % Monocytes (%) (Auto) 10.7 % Eosinophils (%) (Auto) 0.8 % Basophils (%) (Auto) 0.8 % Neutrophils # (Auto) 5.3 TH/MM3 Lymphocytes # (Auto) 0.9 TH/MM3 Monocytes # (Auto) 0.8 TH/MM3 Eosinophils # (Auto) 0.1 TH/MM3 Basophils # (Auto) 0.1 TH/MM3 CBC Comment DIFF FINAL Differential Comment Sodium Level 131 MEQ/L Potassium Level 4.4 MEQ/L Chloride Level 96 MEQ/L Carbon Dioxide Level 25.9 MEQ/L Anion Gap 9 MEQ/L Blood Urea Nitrogen 57 MG/DL Creatinine 3.21 MG/DL Estimat Glomerular Filtration 20 ML/MIN Rate Random Glucose 121 MG/DL Calcium Level 9.7 MG/DL Assessment and Plan Problem List: (1) Pneumonia (2) Sepsis (3) Hypoxia (4) ESRD (end stage renal disease) (5) Kidney transplant status, cadaveric (6) Fever (7) Shortness of breath (8) Aortic stenosis Assessment and Plan 1) Continued hypoxia Right lobe infiltrate on CT/Xray Now more pulmonary edema looking Con't with HD and fluid management (11/12/16 3L off on HD) 2) Severe by echo Will eventually need work up, but currently would not with his overall status 3) EF 35-40% by echo Con't with fluid management per nephrology Overall his weight had been increasing until HD on Saturday, con't to watch weights/fluid balance Problem Qualifiers (1) Pneumonia: Qualified Code: J18.9 - Pneumonia of right lung due to infectious organism, unspecified part of lung Dillon Valdez DO Nov 12, 2016 17:43
--- NOTE | 2016-11-12 18:52 | HHI.PR ---
Subjective Remarks 66 YOWM with Renal transplant, CKD,CHF, On NC No Fever Cough, not able to expactorate On 4LNC, comfortable Had HD, feels tired Objective Vital Signs Vital Signs Date Time Temp Pulse Resp B/P Pulse Ox O2 Delivery O2 Flow Rate FiO2 11/12/16 16:00 97.7 68 18 121/60 92 11/12/16 16:00 Nasal Cannula 4.00 11/12/16 13:00 Nasal Cannula 4.00 11/12/16 12:20 94 Nasal Cannula 4.00 11/12/16 08:00 75 11/12/16 08:00 98.2 76 18 138/65 94 11/12/16 08:00 Nasal Cannula 4.00 11/12/16 05:20 97.3 68 18 126/60 91 11/12/16 04:00 Nasal Cannula 4.00 11/12/16 00:44 97.4 88 18 141/66 88 11/12/16 00:00 Nasal Cannula 4.00 11/11/16 20:58 97.3 76 20 159/71 90 11/11/16 20:36 92 Nasal Cannula 4.00 11/11/16 20:00 Nasal Cannula 2.00 11/11/16 20:00 75 I/O 11/11/16 11/11/16 11/11/16 11/12/16 11/12/16 11/12/16 07:00 15:00 23:00 07:00 15:00 23:00 Intake Total 720 ml 480 ml 360 ml Output Total 700 ml 450 ml 3800 ml Balance 20 ml 30 ml -3440 ml Intake Oral 720 ml 480 ml 360 ml Output Urine Total 700 ml 450 ml 800 ml Hemodialysis 3000 ml # Bowel Movements 0 1 Result Diagram: 11/12/1670411/12/16704 Objective Remarks GENERAL: MBMN, NAD SKIN: Warm and dry. HEAD: Normocephalic. EYES: No scleral icterus. No injection or drainage. NECK: Supple, trachea midline. No JVD or lymphadenopathy. CARDIOVASCULAR: Regular rate and rhythm without murmurs, gallops, or rubs. RESPIRATORY: Breath sounds equal bilaterally. No accessory muscle use. rales at right base GASTROINTESTINAL: Abdomen soft, non-tender, nondistended. MUSCULOSKELETAL: No cyanosis, or edema. BACK: Nontender without obvious deformity. No CVA tenderness. A/P Assessment and Plan Right lung Pneumonia Renal Transplant CKD CHF PLAN: Cont Abx per ID Supplement 02 Clinically improving. Stable jessica, Pravin Ward MD Nov 12, 2016 18:52
[2016-11-12] MEDS: NIFEdipine 90 MG SUSTAINED RELEASE TAB PO SCH (21:00)
[2016-11-12] MEDS: LORazepam 1 MG TAB PO SCH (21:13)
[2016-11-12] MEDS: INSULIN DETEMIR 100 UNITS/ML VIAL SQ SCH (21:17)
[2016-11-13] VITALS (10 sets, daily range): BP systolic 128–158; BP diastolic 60–75; PULSE 69–92; RESP 18–20; TEMP 97.9–99.7; O2SAT 89–98
[2016-11-13] MEDS: ONDANSETRON HCL 4 MG/2 ML VIAL IV PRN (04:20)
[2016-11-13] MEDS: hydrALAZINE HCL 25 MG TAB PO SCH ×3 (06:29→22:59)
[2016-11-13] MEDS: METOCLOPRAMIDE HCL 10 MG/2 ML VIAL IV PUSH SCH ×3 (06:30→22:59)
[2016-11-13] MEDS: BISACODYL 10 MG SUPP RECTAL PRN (06:30)
[2016-11-13] MEDS: LOW DOSE INSULIN NOVOLOG SUPPLEMENTAL SCALE SQ SCH ×4 (06:32→21:00)
--- NOTE | 2016-11-13 06:40 | RADRPT ---
EXAM DATE/TIME: 11/13/2016 06:07 [facility] COMPARISON: No previous studies available for comparison. INDICATIONS : Short of breath, evaluate lung infiltrates MEDICAL HISTORY : Chronic obstructive pulmonary disease. Congestive heart failure. Diabetes mellitus type II. [place] tts syndrome, hypertension SURGICAL HISTORY : right kidney transplant ENCOUNTER: Subsequent ACUITY: 1 week PAIN SCORE: 0/10 LOCATION: Bilateral chest FINDINGS: Bibasilar consolidation and small to moderate pleural effusions are present, both sides slightly wors e in the antrum. I don't see a pneumothorax. Heart size stable, within normal limits. CONCLUSION: Modest worsening bibasilar consolidation and small to moderate pleural effusions. Derrek Arriaza MD on November 13, 2016 at 6:38 Board Certified Radiologist. This report was verified electronically.
[2016-11-13] MEDS: ACETAMINOPHEN/HYDROcodone 325 MG/7.5 MG TAB PO PRN (06:59)
[2016-11-13] MEDS: LACTULOSE SYRUP 20 GM/30 ML CUP PO SCH (09:00)
[2016-11-13] MEDS: DOCUSATE SODIUM 50 MG/SENNA 8.6 MG TAB PO SCH ×2 (09:00→21:00)
[2016-11-13] MEDS: POLYETHYLENE GLYCOL 17 GM PKG PO SCH ×2 (09:00)
[2016-11-13] MEDS: FLUCONAZOLE 400 MG PREMIX BAG 200 ML IV SCH (09:27)
[2016-11-13] MEDS: LORazepam 2 MG/ML VIAL IV PUSH PRN (09:27)
[2016-11-13] MEDS: ISOSORBIDE MONONITRATE 30 MG TAB PO SCH (09:28)
[2016-11-13] MEDS: PREGABALIN 25 MG CAP PO SCH ×3 (09:28→17:18)
[2016-11-13] MEDS: LABETALOL HCL 100 MG TAB PO SCH ×2 (09:28→22:58)
[2016-11-13] MEDS: DOXYCYCLINE HYCLATE 100 MG TAB PO SCH (09:28)
[2016-11-13] MEDS: FERROUS SULFATE 325 MG (65 MG ELEMENTAL IRON) TAB PO SCH (09:28)
[2016-11-13] MEDS: SODIUM BICARBONATE 650 MG TAB PO SCH (09:28)
[2016-11-13] MEDS: MULTIVITAMIN TAB PO SCH (09:28)
[2016-11-13] MEDS: FUROSEMIDE 80 MG TAB PO SCH ×2 (09:28→17:18)
[2016-11-13] MEDS: cloNIDine HCL 0.1 MG TAB PO SCH (09:28)
[2016-11-13] MEDS: SODIUM CHLORIDE 0.9% FLUSH 10 ML FLUSH IV FLUSH SCH ×2 (09:29→23:02)
[2016-11-13] MEDS: TIOTROPIUM BROMIDE 18 MCG INH INH SCH (09:29)
[2016-11-13] MEDS: PANTOPRAZOLE SODIUM 40 MG VIAL IV PUSH SCH ×2 (12:07→23:01)
--- NOTE | 2016-11-13 12:17 | PD.CARD.PN ---
Subjective Subjective Remarks Feels worse, short of breath No chest pain Objective Medications Current Medications Medications (Trade) Dose Ordered Sig/Rai Route Start Time Stop Time Status Last Admin (NS Flush) 2 ml UNSCH PRN IV FLUSH 11/04/16 18:15 11/08/16 05:46 (NS Flush) 2 ml BID IV FLUSH 11/04/16 21:00 11/13/16 09:29 (Tylenol) 650 mg Q4H PRN PO 11/04/16 18:15 (Zofran Inj) 4 mg Q6H PRN IV 11/04/16 18:15 11/13/16 04:20 (Robitussin Dm 200-20 Mg/10 ml Liq) 10 ml Q4H PRN PO 11/04/16 18:15 11/05/16 10:19 (Heparin Inj) 5,000 units Q8H SQ 11/04/16 22:00 Hold 11/06/16 05:12 (Coreen-Colace) 1 tab BID PO 11/04/16 21:00 11/12/16 21:12 (Dulcolax Supp) 10 mg DAILY PRN RECTAL 11/04/16 18:30 11/13/16 06:30 (Lactulose Liq) 30 ml DAILY PO 11/05/16 09:00 11/09/16 16:19 (Catapres) 0.1 mg DAILY PO 11/05/16 09:00 11/13/16 09:28 (Ferrous Sulfate) 325 mg DAILY PO 11/05/16 09:00 11/13/16 09:28 (Apresoline) 25 mg Q8HR PO 11/04/16 22:00 11/13/16 06:29 (Levemir Inj) 18 units HS SQ 11/04/16 21:00 11/12/16 21:17 (Imdur) 30 mg DAILY PO 11/05/16 09:00 11/13/16 09:28 (Trandate) 100 mg BID PO 11/04/16 21:00 11/13/16 09:28 (Ativan) 3 mg HS PO 11/04/16 21:00 11/12/16 21:13 (Procardia Xl) 90 mg HS PO 11/04/16 21:00 11/12/16 21:00 (Miralax) 17 gm DAILY PO 11/05/16 09:00 11/09/16 16:19 (Lyrica) 25 mg TID PO 11/05/16 09:00 11/13/16 09:28 (Sodium Bicarbonate) 650 mg DAILY PO 11/05/16 09:00 11/13/16 09:28 (Spiriva Inh) 18 mcg DAILY INH 11/05/16 09:00 11/13/16 09:29 Patient Own Medication PT OWN MED: (Linaclotide (Linze... DAILY PRN PO 11/04/16 19:00 Hold (Theragran) 1 tab DAILY PO 11/05/16 09:00 11/13/16 09:28 (Vibratab) 100 mg Q12HR PO 11/05/16 22:00 11/13/16 09:28 (Protonix Inj) 40 mg Q12H IV PUSH 11/07/16 12:00 11/13/16 12:07 ([place] 5-325 Mg) 1 tab Q4H PRN PO 11/07/16 14:00 11/11/16 08:39 ([place] 7.5-325 Mg) 1 tab Q4H PRN PO 11/07/16 14:00 11/13/16 06:59 Lorazepam 0.5 mg 0.5 mg Q12H PRN IV PUSH 11/07/16 14:00 11/13/16 09:27 Fluconazole/ Sodium Chloride 200 ml @ 100 mls/hr Q24H IV 11/08/16 08:00 11/13/16 09:27 (Rocephin Inj/NS Inj) 100 ml @ 200 mls/hr Q24H IV 11/07/16 16:00 11/12/16 16:32 (Reglan Inj) 5 mg Q8HR IV PUSH 11/07/16 16:00 11/13/16 06:30 (D50w (Vial) Inj) 25 ml UNSCH PRN IV PUSH 11/08/16 18:00 (Glucagon Inj) 1 mg UNSCH PRN OTHER 11/08/16 18:00 Polyethylene Glycol 17 gm 17 gm DAILY PO 11/09/16 15:00 (NS 1000 ml Inj) 1,000 ml @ 0 mls/hr Q0M PRN IV 11/09/16 12:42 11/09/16 18:51 Heparin Sodium (Porcine) 8000 units 8,000 units UNSCH PRN IVF 11/09/16 12:45 Sodium Chloride 1,000 ml @ 200 mls/hr Q5H PRN IV 11/09/16 12:42 (NS 1000 ml Inj) 1,000 ml @ 0 mls/hr Q0M PRN IV 11/09/16 12:42 (Mannitol Inj) 12.5 gm UNSCH PRN IV 11/09/16 12:45 (Albumin 25% Inj) 25 gm UNSCH PRN IV 11/09/16 12:45 (NS Flush) 5 ml UNSCH PRN IV FLUSH 11/09/16 12:45 (Zofran Inj) 4 mg UNSCH PRN IV 11/09/16 12:45 11/09/16 18:53 (Tylenol) 650 mg UNSCH PRN PO 11/09/16 12:45 (Benadryl) 25 mg UNSCH PRN PO 11/09/16 12:45 (Nitrostat Sl) 0.4 mg UNSCH PRN SL 11/09/16 12:45 (Catapres) 0.1 mg UNSCH PRN PO 11/09/16 12:45 (Epogen Inj) 10,000 units UNSCH PRN IV 11/09/16 12:45 11/12/16 12:58 (Gelfoam 12 Mm/7 Mm Top) 1 foam UNSCH PRN TOP 11/09/16 12:45 11/09/16 18:52 (Lasix) 80 mg DAILY@09,18 PO 11/11/16 18:00 11/13/16 09:28 Vital Signs / I&O Vital Signs Date Time Temp Pulse Resp B/P Pulse Ox O2 Delivery O2 Flow Rate FiO2 11/13/16 12:00 97.9 69 20 132/69 94 11/13/16 09:00 Nasal Cannula 4.00 11/13/16 08:00 98.3 79 20 144/67 92 11/13/16 07:47 81 11/13/16 04:00 Nasal Cannula 4.00 11/13/16 04:00 98.4 77 20 128/60 89 11/13/16 00:00 98.8 70 18 132/63 89 11/13/16 00:00 Nasal Cannula 4.00 11/12/16 22:28 92 Nasal Cannula 4.00 11/12/16 20:29 66 11/12/16 20:00 Nasal Cannula 4.00 11/12/16 20:00 97.5 68 16 143/66 87 11/12/16 16:00 97.7 68 18 121/60 92 11/12/16 16:00 Nasal Cannula 4.00 11/12/16 13:00 Nasal Cannula 4.00 11/12/16 12:20 94 Nasal Cannula 4.00 I/O 11/12/16 11/12/16 11/12/16 11/13/16 11/13/16 11/13/16 07:00 15:00 23:00 07:00 15:00 23:00 Intake Total 480 ml 360 ml Output Total 450 ml 3800 ml 300 ml 150 ml Balance 30 ml -3440 ml -300 ml -150 ml Intake Oral 480 ml 360 ml Output Urine Total 450 ml 800 ml 300 ml 150 ml Hemodialysis 3000 ml # Bowel Movements 1 Physical Exam GENERAL: NAD, AAOx3 SKIN: Warm and dry. HEAD: Atraumatic. Normocephalic. EYES: Pupils equal and round. No scleral icterus. No injection or drainage. ENT: No nasal bleeding or discharge. Mucous membranes pink and moist. NECK: Trachea midline. No JVD. CARDIOVASCULAR: Regular rate and rhythm. 3/6 crescendo-decrescendo systolic murmur RESPIRATORY: No accessory muscle use. Decreased breath sounds bilaterally GASTROINTESTINAL: Abdomen soft, non-tender, nondistended. Hepatic and splenic margins not palpable. MUSCULOSKELETAL: Extremities without clubbing, cyanosis, or edema. No obvious deformities. NEUROLOGICAL: Awake and alert. No obvious cranial nerve deficits. Motor grossly within normal limits. Five out of 5 muscle strength in the arms and legs. Normal speech. PSYCHIATRIC: Appropriate mood and affect; insight and judgment normal. Laboratory Laboratory Tests Test 11/13/16 03:07 Random Glucose 83 MG/DL Assessment and Plan Problem List: (1) Pneumonia (2) Sepsis (3) Hypoxia (4) ESRD (end stage renal disease) (5) Kidney transplant status, cadaveric (6) Fever (7) Shortness of breath (8) Aortic stenosis Assessment and Plan 1) Continued hypoxia, worse today CXR showing worsening pulmonary edema with pleural effusions Pulmonary edema looking Con't with HD and fluid management (11/12/16 3L off on HD, but weight still the same?) Discussed with Dr. Dias, will consider further HD today 2) Severe by echo Will eventually need work up, but currently would not with his overall status 3) EF 35-40% by echo Con't with fluid management per nephrology Overall his weight had been increasing until HD on Saturday, con't to watch weights/fluid balance Problem Qualifiers (1) Pneumonia: Qualified Code: J18.9 - Pneumonia of right lung due to infectious organism, unspecified part of lung Dillon Valdez DO Nov 13, 2016 12:17
--- NOTE | 2016-11-13 13:09 | HHI.PR ---
Subjective Remarks patient feels more short of breath no fever Objective Vitals Vital Signs Date Time Temp Pulse Resp B/P Pulse Ox O2 Delivery O2 Flow Rate FiO2 11/13/16 12:15 92 Simple Mask 8.00 11/13/16 12:00 97.9 69 20 132/69 94 11/13/16 09:00 Nasal Cannula 4.00 11/13/16 08:00 98.3 79 20 144/67 92 11/13/16 07:47 81 11/13/16 04:00 Nasal Cannula 4.00 11/13/16 04:00 98.4 77 20 128/60 89 11/13/16 00:00 98.8 70 18 132/63 89 11/13/16 00:00 Nasal Cannula 4.00 11/12/16 22:28 92 Nasal Cannula 4.00 11/12/16 20:29 66 11/12/16 20:00 Nasal Cannula 4.00 11/12/16 20:00 97.5 68 16 143/66 87 11/12/16 16:00 97.7 68 18 121/60 92 11/12/16 16:00 Nasal Cannula 4.00 I/O 11/12/16 11/12/16 11/12/16 11/13/16 11/13/16 11/13/16 07:00 15:00 23:00 07:00 15:00 23:00 Intake Total 480 ml 360 ml Output Total 450 ml 3800 ml 300 ml 150 ml Balance 30 ml -3440 ml -300 ml -150 ml Intake Oral 480 ml 360 ml Output Urine Total 450 ml 800 ml 300 ml 150 ml Hemodialysis 3000 ml # Bowel Movements 1 Result Diagram: 11/12/16 0705 11/13/16 0307 Imaging Last Impressions Chest X-Ray 11/13/16 0600 Signed Impressions: Service Date/Time: Sunday, November 13, 2016 06:07 - CONCLUSION: Modest worsening bibasilar consolidation and small to moderate pleural effusions. Derrek Arriaza MD Gastric Emptying Nuclear Medicine 11/08/16 0000 Signed Impressions: Service Date/Time: November 09:00 - CONCLUSION: 1. Delayed gastric emptying. 2. Improvement following IV Reglan. Ricardo Hansen MD Abdomen/Pelvis CT 11/04/16 1248 Signed Impressions: Service Date/Time: Friday, November 04, 2016 14:45 - CONCLUSION: 1. New large consolidation seen at the right hilar and infrahilar region. 2. Mild thickening of the distal esophagus. This is nonspecific. 3. Distention of the stomach. 4. Transplanted kidney in the right lower quadrant. There is a 2.9 cm cyst at the inferior transplanted kidney. 5. Very extensive atherosclerotic calcifications seen throughout the arterial system. Derrek Lopez MD Objective Remarks awake and alert, NAD anicteric lungs- decreased breath sounds,+ basal rales regular rhythm abdmen soft, good bowel sounds extremities + edema neuro exam- unremarkable A/P Problem List: (1) Sepsis ICD Code: A41.9 Status: Acute (2) Aortic stenosis ICD Code: I35.0 Status: Chronic (3) FRANTZ (acute kidney injury) ICD Code: N17.9 Status: Acute (4) Constipation ICD Code: K59.00 Status: Acute (5) IDDM (insulin dependent diabetes mellitus) ICD Code: E11.9 Status: Resolved (6) HAP (hospital-acquired pneumonia) ICD Code: J18.9 Status: Acute Assessment and Plan This is a 66-year-old male with history of congestive heart failure, cardiomyopathy, aortic stenosis, chronic kidney disease status post kidney transplant, diabetes mellitus, and recent fungemia, presenting back to the hospital with nausea, vomiting, constipation and cough. Acute respiratory failure- higher oxygen requirement = Increase Fi02 to keep sats greater than 90%. 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 tolerating current diet FRANTZ on CKD status post kidney transplant patient on mycophenolate and is on tacrolimus - on Hemoduialysis Hypertension Diabetes mellitus- good readings History of CHF, ACS, aortic stenosis EF 35% plan for TAVR as an outpatient DVT prophylaxis with heparin Plan: Infectious disease ff Pulmonary- Dr. Ward ff Sputum culture growing normal respiratory ally. Patient tolerating PO Nephrology ff currently on dialysis. May need permanent dialysis. Appreciate GI consultation, status post EGD, report reviewed showed>> Gastroesophageal reflex, gastritis, gastroparesis, arousable esophagitis with stricture dilated 15 mm, GI recommended PPI intravenously twice a day, gastric emptying study and Reglan Continue iv antibiotic per ID doxycycline, Diflucan, ceftriaxone, if found to be cryptococcus pneumonia patient will need amphotericin B which will be high risk for the transplanted kidney Appreciate nephrology consultation, hold mycophenolate for now due to cryptococcus infection, patient may currently on hemodialysis. Resume Lasix. O2 DuoNeb Continue prednisone, tacrolimus [per Hien Chaidez MD Nov 13, 2016 13:09 Hien Adames MD Nov 13, 2016 1:09 pm
--- NOTE | 2016-11-13 15:06 | HHI.NPPN ---
Subjective History of Present Illness 66-year-old with nausea vomiting abdominal pain and has the cryptococcal infection Additional Remarks in chf on O2 Review of Systems General Constitutional: Fatigue Objective Data Data 11/12/16 11/13/16 19:00 07:00 Intake Total 360 ml Output Total 3800 ml 450 ml Balance -3440 ml -450 ml Intake Oral 360 ml Output Urine Total 800 ml 450 ml Hemodialysis 3000 ml # Bowel Movements 1 Vital Signs Date Time Temp Pulse Resp B/P Pulse Ox O2 Delivery O2 Flow Rate FiO2 11/13/16 12:15 92 Simple Mask 8.00 11/13/16 12:00 Simple Mask 8.00 11/13/16 12:00 97.9 69 20 132/69 94 11/13/16 10:50 91 Simple Mask 8.00 11/13/16 09:00 Nasal Cannula 4.00 11/13/16 08:00 98.3 79 20 144/67 92 11/13/16 07:47 81 11/13/16 04:00 Nasal Cannula 4.00 11/13/16 04:00 98.4 77 20 128/60 89 11/13/16 00:00 98.8 70 18 132/63 89 11/13/16 00:00 Nasal Cannula 4.00 11/12/16 22:28 92 Nasal Cannula 4.00 11/12/16 20:29 66 11/12/16 20:00 Nasal Cannula 4.00 11/12/16 20:00 97.5 68 16 143/66 87 11/12/16 16:00 97.7 68 18 121/60 92 11/12/16 16:00 Nasal Cannula 4.00 -: 11/12/16 0705 11/13/16 0307 Physical Exam General Appearance: Well Developed Neck Neck Exam: Neck Supple Pulmonary Resp Exam: Crackles, Rhonchi, Decreased Bases Cardiology CV Exam: Tachycardia, Murmur Gastrointestinal/Abdomen GI Exam: Soft, Non-Tender, Bowel Sounds Present Integumentary Skin Exam: Clear Extremeties Extremities Exam: Trace Edema Neurologic Neuro Exam: Alert Assessment/Plan Problem List: (1) Kidney transplant status, cadaveric Plan: he has serious infection Cryptococcus/AV Stenosis d/w patient need to treat Cryptococcal infection and as he has serious infection , we will stop his anti rejection medications wean off steroids d/w Drs. Adames and José Miguel seen during hemodialysis UF 4 L OFF Tolerating it well doing poorly prognosis guarded (2) DM (diabetes mellitus) Plan: Follow blood glucose (3) Aortic stenosis Plan: He has severe aortic stenosis, cardiology note reviewed. Not stable for workup. (4) Hypertension Plan: Monitor blood pressure (5) Pneumonia Plan: ID is following on Ceftriaxone and fluconazole and Doxycycline. Problem Qualifiers (1) Pneumonia: Qualified Code: J18.9 - Pneumonia of right lung due to infectious organism, unspecified part of lung Stacy Dias MD Nov 13, 2016 15:06
[2016-11-13 15:56] LABS: AUTOMATED NEUTROPHIL # 4.9 TH/MM3 (1.8-7.7); BASOPHIL % 0.6 % (0.0-2.0); EOSINOPHIL # 0.1 TH/MM3 (0-0.4); EOSINOPHIL % 0.8 % (0.0-4.0); HEMATOCRIT 33.1 % (39.0-51.0); HEMO FLAGS DIFF FINAL; LYMPH % 13.5 % (9.0-44.0); LYMPHOCYTE # 0.9 TH/MM3 (1.0-4.8); MEAN CELL VOLUME 83.4 FL (80.0-100.0); MEAN CORPUSCULAR HEMOGLOBIN 27.2 PG (27.0-34.0); MEAN CORPUSCULAR HGB CONC 32.6 % (32.0-36.0); MONO % 8.3 % (0.0-8.0); NEUT % 76.8 % (16.0-70.0); PLATELET COUNT 240 TH/MM3 (150-450); RED BLOOD COUNT 3.97 MIL/MM3 (4.50-5.90); RED CELL DISTRIBUTION WIDTH 16.1 % (11.6-17.2); WHITE BLOOD COUNT 6.4 TH/MM3 (4.0-11.0)
[2016-11-13] MEDS: cefTRIAXone INJ 1,000 MG in SODIUM CHLORIDE 0.9% INJ 100 ML IV SCH (17:18)
--- NOTE | 2016-11-13 20:19 | HHI.PR ---
Subjective Remarks 66 YOWM with Renal transplant, CKD,CHF, On NC No Fever Cough, not able to expactorate More sob, on VM CXr worsening pl effusion Had HD, 4 l fluid removed Objective Vital Signs Vital Signs Date Time Temp Pulse Resp B/P Pulse Ox O2 Delivery O2 Flow Rate FiO2 11/13/16 17:31 93 Simple Mask 8.00 11/13/16 17:27 98.0 92 20 154/75 93 11/13/16 17:00 Simple Mask 8.00 11/13/16 12:15 92 Simple Mask 8.00 11/13/16 12:00 Simple Mask 8.00 11/13/16 12:00 97.9 69 20 132/69 94 11/13/16 10:50 91 Simple Mask 8.00 11/13/16 09:00 Nasal Cannula 4.00 11/13/16 08:00 98.3 79 20 144/67 92 11/13/16 07:47 81 11/13/16 04:00 Nasal Cannula 4.00 11/13/16 04:00 98.4 77 20 128/60 89 11/13/16 00:00 98.8 70 18 132/63 89 11/13/16 00:00 Nasal Cannula 4.00 11/12/16 22:28 92 Nasal Cannula 4.00 11/12/16 20:29 66 I/O 11/12/16 11/12/16 11/12/16 11/13/16 11/13/16 11/13/16 07:00 15:00 23:00 07:00 15:00 23:00 Intake Total 480 ml 360 ml 688 ml Output Total 450 ml 3800 ml 300 ml 150 ml 550 ml 4000 ml Balance 30 ml -3440 ml -300 ml -150 ml 138 ml -4000 ml Intake Oral 480 ml 360 ml 480 ml IV Total 208 ml Output Urine Total 450 ml 800 ml 300 ml 150 ml 550 ml Hemodialysis 3000 ml 4000 ml # Bowel Movements 1 1 Result Diagram: 11/13/16 1430 11/13/16 0307 Objective Remarks GENERAL: MBMN, NAD SKIN: Warm and dry. HEAD: Normocephalic. EYES: No scleral icterus. No injection or drainage. NECK: Supple, trachea midline. No JVD or lymphadenopathy. CARDIOVASCULAR: Regular rate and rhythm without murmurs, gallops, or rubs. RESPIRATORY: Breath sounds equal bilaterally. No accessory muscle use. rales at right base GASTROINTESTINAL: Abdomen soft, non-tender, nondistended. MUSCULOSKELETAL: No cyanosis, or edema. BACK: Nontender without obvious deformity. No CVA tenderness. A/P Assessment and Plan Right lung Pneumonia Renal Transplant CKD CHF PLAN: Cont Abx per ID Supplement 02 Will need US guided Tc Will try nery [facility] pt and family at [facility] Ward MD Nov 13, 2016 20:19
[2016-11-13] MEDS ORDERED: FUROSEMIDE 40 MG/4 ML VIAL IV PUSH ONE (20:30)
[2016-11-13] MEDS: NIFEdipine 90 MG SUSTAINED RELEASE TAB PO SCH (21:00)
--- NOTE | 2016-11-13 21:06 | HHI.IDPN ---
Subjective Subjective Remarks Pt is not doing well today very depressed about his transplant loss and resumaming of HD He is is progressibve SOB and now on mask afebrile has frothy blood tinged sputum CXR with worsening consolidations and effusions tacrolimus was stopped Antibiotics CFTX doxycycline fluconazole Allergies: Coded Allergies: No Known Allergies (Unverified , 11/04/16) Objective . Vital Signs Date Time Temp Pulse Resp B/P Pulse Ox O2 Delivery O2 Flow Rate FiO2 11/13/16 17:31 93 Simple Mask 8.00 11/13/16 17:27 98.0 92 20 154/75 93 11/13/16 17:00 Simple Mask 8.00 11/13/16 12:15 92 Simple Mask 8.00 11/13/16 12:00 Simple Mask 8.00 11/13/16 12:00 97.9 69 20 132/69 94 11/13/16 10:50 91 Simple Mask 8.00 11/13/16 09:00 Nasal Cannula 4.00 11/13/16 08:00 98.3 79 20 144/67 92 11/13/16 07:47 81 11/13/16 04:00 Nasal Cannula 4.00 11/13/16 04:00 98.4 77 20 128/60 89 11/13/16 00:00 98.8 70 18 132/63 89 11/13/16 00:00 Nasal Cannula 4.00 11/12/16 22:28 92 Nasal Cannula 4.00 11/12/16 11/12/16 11/13/16 15:00 23:00 07:00 Intake Total 360 ml Output Total 3800 ml 300 ml 150 ml Balance -3440 ml -300 ml -150 ml Intake Oral 360 ml Output Urine Total 800 ml 300 ml 150 ml Hemodialysis 3000 ml # Bowel Movements 1 . Laboratory Tests Test 11/12/16 11/13/16 07:05 14:30 White Blood Count 7.1 TH/MM3 6.4 TH/MM3 Red Blood Count 4.17 MIL/MM3 3.97 MIL/MM3 Hemoglobin 11.5 GM/DL 10.8 GM/DL Hematocrit 34.4 % 33.1 % Mean Corpuscular Volume 82.5 FL 83.4 FL Mean Corpuscular Hemoglobin 27.5 PG 27.2 PG Mean Corpuscular Hemoglobin 33.4 % 32.6 % Concent Red Cell Distribution Width 15.7 % 16.1 % Platelet Count 262 TH/MM3 240 TH/MM3 Mean Platelet Volume 8.9 FL 8.6 FL Neutrophils (%) (Auto) 74.7 % 76.8 % Lymphocytes (%) (Auto) 13.0 % 13.5 % Monocytes (%) (Auto) 10.7 % 8.3 % Eosinophils (%) (Auto) 0.8 % 0.8 % Basophils (%) (Auto) 0.8 % 0.6 % Neutrophils # (Auto) 5.3 TH/MM3 4.9 TH/MM3 Lymphocytes # (Auto) 0.9 TH/MM3 0.9 TH/MM3 Monocytes # (Auto) 0.8 TH/MM3 0.5 TH/MM3 Eosinophils # (Auto) 0.1 TH/MM3 0.1 TH/MM3 Basophils # (Auto) 0.1 TH/MM3 0.0 TH/MM3 CBC Comment DIFF FINAL DIFF FINAL Differential Comment Laboratory Tests Test 11/12/16 11/13/16 07:05 03:07 Sodium Level 131 MEQ/L Potassium Level 4.4 MEQ/L Chloride Level 96 MEQ/L Carbon Dioxide Level 25.9 MEQ/L Anion Gap 9 MEQ/L Blood Urea Nitrogen 57 MG/DL Creatinine 3.21 MG/DL Estimat Glomerular Filtration 20 ML/MIN Rate Random Glucose 121 MG/DL 83 MG/DL Calcium Level 9.7 MG/DL Imaging Last Impressions Chest X-Ray 11/13/16 0600 Signed Impressions: Service Date/Time: Sunday, November 13, 2016 06:07 - CONCLUSION: Modest worsening bibasilar consolidation and small to moderate pleural effusions. Derrek Arriaza MD Gastric Emptying Nuclear Medicine 11/08/16 0000 Signed Impressions: Service Date/Time: November 09:00 - CONCLUSION: 1. Delayed gastric emptying. 2. Improvement following IV Reglan. Ricardo Hansen MD Abdomen/Pelvis CT 11/04/16 1248 Signed Impressions: Service Date/Time: Friday, November 04, 2016 14:45 - CONCLUSION: 1. New large consolidation seen at the right hilar and infrahilar region. 2. Mild thickening of the distal esophagus. This is nonspecific. 3. Distention of the stomach. 4. Transplanted kidney in the right lower quadrant. There is a 2.9 cm cyst at the inferior transplanted kidney. 5. Very extensive atherosclerotic calcifications seen throughout the arterial system. Derrek Lopez MD Physical Exam CONSTITUTIONAL/GENERAL: This is an adequately nourished patient, in no apparent distress. TUBES/LINES/DRAINS: LUE AV fistula in place with excellent thrill SKIN: No jaundice, rashes, or lesions. Skin temperature appropriate. Not diaphoretic. EYES: Pupils equal and round and reactive. Extraocular motions intact. No scleral icterus. No injection or drainage. CARDIOVASCULAR: Regular rate and rhythm + 3/6 holosystolic harsh murmur with max on RUSB no , gallops, or rubs. No JVD. Peripheral pulses symmetric. RESPIRATORY/CHEST: Symmetric, unlabored respirations. B/b crackles to auscultation. Breath sounds equal bilaterally. No wheezes, rales, or rhonchi. GASTROINTESTINAL: Abdomen soft, non-tender, + mildly to moderately distended. No hepato-splenomegaly, + slightly tender palpable mass in RLQ cw allograft. No guarding. Bowel sounds present. MUSCULOSKELETAL: Extremities without clubbing, cyanosis, + trace edema. No mottling or clubbing. NEUROLOGICAL: Lethargic, but arousable Motor and sensory grossly within normal limits. Follows commands. Clear speech. Moves all extremities. PSYCHIATRIC: visibly depressed over his med situation and need for HD Assessment & Plan Remarks PNA ? ethiology ? cryptococcus, vs bacterial vs other fungi vs other (viruses, atypical mycobacterial) ? 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, sp failed renal allograft - tacrolimus stopped, prednisone is on taper to off Nausea, vpmiting, distal esophageal thickening, known Sam's - gastric potlet stenosis Diarrhea, abx associated, C.diff negative Aortic stenosis Severe CHF Multiple med problems Worsning progressive hypoxia, likely combination of cardiac and renal factor ? superimposed PNA cont high dose fluconazole 400 (renally adjusted); can be changed to PO if no nausea/vomiting change CFTX to cefepime - dc doxycyline start levaquine rechk sputum Getting deteriorated really sick, likely further worsening of resp staus dw Matthew Dias, José Miguel, [place] : she reported me that pt is not willing to be on life support dw Nancy Hi MD Nov 13, 2016 21:06
[2016-11-13] MEDS ORDERED: CEFEPIME INJ 1,000 MG in SODIUM CHLORIDE 0.9% INJ 100 ML IV SCH (21:15)
[2016-11-13 22:03] LABS: HEMATOCRIT 37.6 % (39.0-51.0); MEAN CELL VOLUME 83.8 FL (80.0-100.0); MEAN CORPUSCULAR HEMOGLOBIN 26.5 PG (27.0-34.0); MEAN CORPUSCULAR HGB CONC 31.6 % (32.0-36.0); PLATELET COUNT 241 TH/MM3 (150-450); RED BLOOD COUNT 4.48 MIL/MM3 (4.50-5.90); RED CELL DISTRIBUTION WIDTH 16.2 % (11.6-17.2); REVIEW FLAG FINAL; WHITE BLOOD COUNT 11.5 TH/MM3 (4.0-11.0)
[2016-11-13 22:10] LABS: INTERNATIONAL NORMALIZED RATIO 1.2 RATIO; PROTHROMBIN TIME - PATIENT 13.1 SEC (9.8-11.6)
[2016-11-13] MEDS ORDERED: LEVOFLOXACIN 500 MG PREMIX INJ 100 ML IV SCH (22:15)
[2016-11-13] MEDS: INSULIN DETEMIR 100 UNITS/ML VIAL SQ SCH (22:53)
[2016-11-13] MEDS: LORazepam 1 MG TAB PO SCH (22:55)
[2016-11-14] VITALS (11 sets, daily range): BP systolic 105–141; BP diastolic 44–71; PULSE 63–80; RESP 18–22; TEMP 96.4–99.1; O2SAT 91–98
[2016-11-14 00:39] LABS: APTT (PATIENT) 31.3 SEC (24.3-30.1)
[2016-11-14] MEDS: hydrALAZINE HCL 25 MG TAB PO SCH ×3 (05:43→14:42)
[2016-11-14] MEDS: METOCLOPRAMIDE HCL 10 MG/2 ML VIAL IV PUSH SCH ×3 (05:43→14:43)
[2016-11-14] MEDS: LOW DOSE INSULIN NOVOLOG SUPPLEMENTAL SCALE SQ SCH ×3 (06:04→16:00)
[2016-11-14] MEDS: MULTIVITAMIN TAB PO SCH (08:12)
[2016-11-14] MEDS: LABETALOL HCL 100 MG TAB PO SCH (08:12)
[2016-11-14] MEDS: FERROUS SULFATE 325 MG (65 MG ELEMENTAL IRON) TAB PO SCH (08:12)
[2016-11-14] MEDS: FUROSEMIDE 80 MG TAB PO SCH ×2 (08:12→16:32)
[2016-11-14] MEDS: DOCUSATE SODIUM 50 MG/SENNA 8.6 MG TAB PO SCH (08:12)
[2016-11-14] MEDS: PREGABALIN 25 MG CAP PO SCH ×3 (08:12→16:32)
[2016-11-14] MEDS: SODIUM BICARBONATE 650 MG TAB PO SCH (08:12)
[2016-11-14] MEDS: cloNIDine HCL 0.1 MG TAB PO SCH (08:12)
[2016-11-14] MEDS: ISOSORBIDE MONONITRATE 30 MG TAB PO SCH (08:12)
[2016-11-14] MEDS: LACTULOSE SYRUP 20 GM/30 ML CUP PO SCH (08:14)
[2016-11-14] MEDS: TIOTROPIUM BROMIDE 18 MCG INH INH SCH (08:14)
[2016-11-14] MEDS: FLUCONAZOLE 400 MG PREMIX BAG 200 ML IV SCH (08:15)
[2016-11-14] MEDS: POLYETHYLENE GLYCOL 17 GM PKG PO SCH ×2 (08:15)
[2016-11-14] MEDS: SODIUM CHLORIDE 0.9% FLUSH 10 ML FLUSH IV FLUSH SCH (08:15)
[2016-11-14] MEDS ORDERED: predniSONE 5 MG TAB PO SCH (09:00)
--- NOTE | 2016-11-14 09:56 | RADRPT ---
EXAM DATE/TIME: 11/14/2016 09:34 [facility] COMPARISON: CHEST SINGLE AP, November 13, 2016, 6:07. INDICATIONS : S/P Left Thoracentesis. MEDICAL HISTORY : Cardiovascular disease. Hypertension SURGICAL HISTORY : Kidney transplant. ENCOUNTER: Subsequent ACUITY: 1 week PAIN SCORE: 0/10 LOCATION: Bilateral chest FINDINGS: A single portable frontal view of the chest shows reduction in size of left pleural effusion. A tiny amount of fluid remains. No pneumothorax. Right pleural effusion is unchanged. Right basilar consolid ation is unchanged. Heart remains mildly enlarged. The degenerative spine. CONCLUSION: No pneumothorax following left thoracentesis. Shabbir Ramos Jr., MD on November 14, 2016 at 9:53 Board Certified Radiologist. This report was verified electronically.
--- NOTE | 2016-11-14 10:08 | RADRPT ---
EXAM DATE/TIME: 11/14/2016 08:40 [facility] COMPARISON: CHEST SINGLE AP, November 13, 2016, 6:07. CHEST EXPIRATION ONLY, November 14, 2016, 9:34. US LEG BILATERAL VENOUS DOPPLER, October 22, 2016, 11:46. INDICATIONS : Left pleural effusion. MEDICAL HISTORY : Congestive heart failure. Hypertension. Gastroesophageal reflux disease. Barretts syndrome. Retinopat hy. Diabetic neuropathy. Renal failure. Hepatitis C. Shingles. Diabetes. Hematemesis. Dyspnea. SURGICAL HISTORY : Bilateral carotid surgery. Left AV fistula. Cardiac Catheterization. Kidney transplant. Ureteral sten ts. Left foot surgery. ENCOUNTER: Initial ACUITY: 1 week PAIN SCORE: 10 LOCATION: Left chest FLUID: Total volume of 825 cc of clear, yellow fluid was removed. Fluid was sent to lab for ordered studies. TECHNIQUE: 1. Ultrasound guidance for thoracentesis. 2. Thoracentesis. The risks, benefits, and alternatives to ultrasound guided thoracentesis were explained to the patien t in lay simple terms, including the risk of bleeding and infection. Written and verbal informed con sent was obtained. Appropriate area for thoracentesis was marked under ultrasound guidance with the patient in the uprig ht position. Overlying skin was prepped and draped in the usual sterile fashion and with local anest hetic, a dermatotomy was made with an 11 blade scalpel. A 6 [place] thoracentesis catheter was placed in the pleural space and fluid was removed. Catheter was then removed and a sterile dressing applie d. There were no immediate complications. The patient tolerated the procedure well and the left the ultrasound suite in stable condition. Chest radiograph is to be obtained. CONCLUSION: Uncomplicated ultrasound guided thoracentesis. Dante Magallon MD on November 14, 2016 at 10:04 Board Certified Radiologist. This report was verified electronically.
[2016-11-14 11:18] LABS: PLEURAL FLUID LYMPHS 58 %
[2016-11-14] MEDS: PANTOPRAZOLE SODIUM 40 MG VIAL IV PUSH SCH (12:14)
[2016-11-14 13:34] LABS: BICARBONATE 27.7 MEQ/L (21.0-32.0); POTASSIUM 4.5 MEQ/L (3.5-5.1)
[2016-11-14 14:56] LABS: AUTOMATED NEUTROPHIL # 6.6 TH/MM3 (1.8-7.7); BASOPHIL % 0.4 % (0.0-2.0); EOSINOPHIL % 0.1 % (0.0-4.0); HEMATOCRIT 34.3 % (39.0-51.0); HEMO FLAGS DIFF FINAL; LYMPH % 7.9 % (9.0-44.0); LYMPHOCYTE # 0.6 TH/MM3 (1.0-4.8); MEAN CELL VOLUME 83.3 FL (80.0-100.0); MEAN CORPUSCULAR HEMOGLOBIN 27.4 PG (27.0-34.0); MEAN CORPUSCULAR HGB CONC 32.9 % (32.0-36.0); MONO % 7.1 % (0.0-8.0); NEUT % 84.5 % (16.0-70.0); PLATELET COUNT 230 TH/MM3 (150-450); RED BLOOD COUNT 4.11 MIL/MM3 (4.50-5.90); RED CELL DISTRIBUTION WIDTH 16.3 % (11.6-17.2); WHITE BLOOD COUNT 7.8 TH/MM3 (4.0-11.0)
--- NOTE | 2016-11-14 15:05 | HHI.IDPN ---
Subjective Subjective Remarks Growing AFB in the sputum @ 7 days, MTB probe neg feels better today He states he absolutely does not want to continue dialysis he wants to stop abx and wants to go home on hospice He is not interested in treatment of his new lung infection and want to stop ALL antibitics Antibiotics levaquin cefepime fluconazole Allergies: Coded Allergies: No Known Allergies (Unverified , 11/04/16) Objective . Vital Signs Date Time Temp Pulse Resp B/P Pulse Ox O2 Delivery O2 Flow Rate FiO2 11/14/16 13:22 78 11/14/16 13:22 Simple Mask 8.00 11/14/16 12:27 97.8 73 19 113/58 95 11/14/16 09:55 63 22 112/63 98 11/14/16 09:40 96.4 68 22 130/66 98 11/14/16 09:25 69 22 123/65 98 11/14/16 08:55 97.0 71 20 105/44 96 11/14/16 08:01 97.6 80 19 122/58 91 11/14/16 04:00 98.8 74 20 125/60 93 11/14/16 00:00 99.1 71 20 131/64 91 11/13/16 20:45 Simple Mask 8.00 11/13/16 20:00 99.7 83 20 158/73 98 11/13/16 19:05 88 11/13/16 17:31 93 Simple Mask 8.00 11/13/16 17:27 98.0 92 20 154/75 93 11/13/16 17:00 Simple Mask 8.00 11/13/16 11/13/16 11/14/16 15:00 23:00 07:00 Intake Total 688 ml 0 ml 0 ml Output Total 550 ml 4000 ml 0 ml Balance 138 ml -4000 ml 0 ml Intake Oral 480 ml 0 ml IV Total 208 ml 0 ml 0 ml Output Urine Total 550 ml 0 ml Hemodialysis 4000 ml # Bowel Movements 1 0 . Laboratory Tests Test 11/13/16 11/13/16 14:30 21:36 White Blood Count 6.4 TH/MM3 11.5 TH/MM3 Red Blood Count 3.97 MIL/MM3 4.48 MIL/MM3 Hemoglobin 10.8 GM/DL 11.9 GM/DL Hematocrit 33.1 % 37.6 % Mean Corpuscular Volume 83.4 FL 83.8 FL Mean Corpuscular Hemoglobin 27.2 PG 26.5 PG Mean Corpuscular Hemoglobin 32.6 % 31.6 % Concent Red Cell Distribution Width 16.1 % 16.2 % Platelet Count 240 TH/MM3 241 TH/MM3 Mean Platelet Volume 8.6 FL 8.6 FL Neutrophils (%) (Auto) 76.8 % Lymphocytes (%) (Auto) 13.5 % Monocytes (%) (Auto) 8.3 % Eosinophils (%) (Auto) 0.8 % Basophils (%) (Auto) 0.6 % Neutrophils # (Auto) 4.9 TH/MM3 Lymphocytes # (Auto) 0.9 TH/MM3 Monocytes # (Auto) 0.5 TH/MM3 Eosinophils # (Auto) 0.1 TH/MM3 Basophils # (Auto) 0.0 TH/MM3 CBC Comment DIFF FINAL Differential Comment Laboratory Tests Test 11/13/16 11/14/16 03:07 12:40 Random Glucose 83 MG/DL 255 MG/DL Sodium Level 134 MEQ/L Potassium Level 4.5 MEQ/L Chloride Level 97 MEQ/L Carbon Dioxide Level 27.7 MEQ/L Anion Gap 9 MEQ/L Blood Urea Nitrogen 34 MG/DL Creatinine 2.85 MG/DL Estimat Glomerular Filtration 22 ML/MIN Rate Calcium Level 9.1 MG/DL Microbiology Date/Time Procedure Status Source Growth 11/14/16 08:28 Gram Stain Received Sputum Expectorated Sputum Pending 11/14/16 08:28 Sputum Culture Received Sputum Expectorated Sputum Pending 11/14/16 09:10 Gram Stain Received Fluid Pleural Fluid Pending 11/14/16 09:10 Body Fluid Culture Received Fluid Pleural Fluid Pending 11/14/16 09:10 Acid Fast Stain Received Fluid Pleural Fluid Pending 11/14/16 09:10 Mycobacterial Culture Received Fluid Pleural Fluid Pending 11/14/16 09:10 Fungal Smear Received Fluid Pleural Fluid Pending 11/14/16 09:10 Fungal Culture Received Fluid Pleural Fluid Pending Imaging Last Impressions Thoracentesis Ultrasound 11/14/16 0000 Signed Impressions: Service Date/Time: Monday, November 14, 2016 08:40 - CONCLUSION: Uncomplicated ultrasound guided thoracentesis. Dante Magallon MD Chest X-Ray 11/14/16 0000 Signed Impressions: Service Date/Time: Monday, November 14, 2016 09:34 - CONCLUSION: No pneumothorax following left thoracentesis. Shabbir Ramos Jr., MD Gastric Emptying Nuclear Medicine 11/08/16 0000 Signed Impressions: Service Date/Time: November 09:00 - CONCLUSION: 1. Delayed gastric emptying. 2. Improvement following IV Reglan. Ricardo Hansen MD Abdomen/Pelvis CT 11/04/16 1248 Signed Impressions: Service Date/Time: Friday, November 04, 2016 14:45 - CONCLUSION: 1. New large consolidation seen at the right hilar and infrahilar region. 2. Mild thickening of the distal esophagus. This is nonspecific. 3. Distention of the stomach. 4. Transplanted kidney in the right lower quadrant. There is a 2.9 cm cyst at the inferior transplanted kidney. 5. Very extensive atherosclerotic calcifications seen throughout the arterial system. Derrek Lopez MD Physical Exam CONSTITUTIONAL/GENERAL: This is an adequately nourished patient, in no apparent distress. Talking over the phone w/o O2 and not SOB TUBES/LINES/DRAINS: SKIN: No jaundice, rashes, or lesions. Skin temperature appropriate. Not diaphoretic. vRESPIRATORY/CHEST: Breathing unlaboured MUSCULOSKELETAL: Extremities without edema. No mottling or clubbing. NEUROLOGICAL: Pt is fully alert and orineted x 4 Motor and sensory grossly within normal limits. Follows commands. Clear speech. Moves all extremities. PSYCHIATRIC:calm, cooperative. Assessment & Plan Remarks PNA ? ethiology ? cryptococcus, vs bacterial vs other fungi vs other (viruses, atypical mycobacterial) ? aspiration - pt has severe emesis prior to presentation - New large consolidation seen at the right hilar and infrahilar region, - known cryptococcal disease, disseminated - cryptococcal AG negative New issue: growing atypical mycobacteria from the sputum MTB probe neg Immunosuppressed, sp failed renal allograft - tacrolimus stopped, prednisone is on taper to off Nausea, vpmiting, distal esophageal thickening, known Sam's - gastric outlet stenosis, esophagitis Diarrhea, abx associated, C.diff negative Aortic stenosis Severe CHF Multiple med problems Improved hypoxia, likely combination of cardiac and renal factor: improved ? superimposed mycobacterial PNA, rapid grower ESRD with new transplant failure: pt elected not to have renal replacement therapy End-of -life decisions: pt is aware that stopping HD will lead to and he made hjis decision not to go back on HD long time ago. He also electing not to treat his current infections and requests to stop abx. His family is supporting him in his decision. He desires to be discharged as soon as possible with home hospice dc abx consult palliative to arrange home hospice No isolation needed since the pt's MB probe is negative dw Tom Frances Lacierda dw dw Nancy Hi MD Nov 14, 2016 15:05
--- NOTE | 2016-11-14 15:09 | HHI.NPPN ---
Subjective History of Present Illness 66-year-old with nausea vomiting abdominal pain and has the cryptococcal infection Additional Remarks patients wants to stop his treatment, has Pneumonia, chf on O2 Review of Systems General Constitutional: Fatigue Objective Data Data 11/13/16 11/14/16 19:00 07:00 Intake Total 688 ml 0 ml Output Total 4550 ml 0 ml Balance -3862 ml 0 ml Intake Oral 480 ml 0 ml IV Total 208 ml 0 ml Output Urine Total 550 ml 0 ml Hemodialysis 4000 ml # Bowel Movements 1 0 Vital Signs Date Time Temp Pulse Resp B/P Pulse Ox O2 Delivery O2 Flow Rate FiO2 11/14/16 13:22 78 11/14/16 13:22 Simple Mask 8.00 11/14/16 12:27 97.8 73 19 113/58 95 11/14/16 09:55 63 22 112/63 98 11/14/16 09:40 96.4 68 22 130/66 98 11/14/16 09:25 69 22 123/65 98 11/14/16 08:55 97.0 71 20 105/44 96 11/14/16 08:01 97.6 80 19 122/58 91 11/14/16 04:00 98.8 74 20 125/60 93 11/14/16 00:00 99.1 71 20 131/64 91 11/13/16 20:45 Simple Mask 8.00 11/13/16 20:00 99.7 83 20 158/73 98 11/13/16 19:05 88 11/13/16 17:31 93 Simple Mask 8.00 11/13/16 17:27 98.0 92 20 154/75 93 11/13/16 17:00 Simple Mask 8.00 -: 11/14/16 1403 11/14/16 1240 Microbiology 11/14/16 Gram Stain, Received Pending 11/14/16 Sputum Culture, Received Pending 11/14/16 Gram Stain, Received Pending 11/14/16 Body Fluid Culture, Received Pending 11/14/16 Acid Fast Stain, Received Pending 11/14/16 Mycobacterial Culture, Received Pending 11/14/16 Fungal Smear, Received Pending 11/14/16 Fungal Culture, Received Pending Physical Exam General Appearance: Well Developed Neck Neck Exam: Neck Supple Pulmonary Resp Exam: Crackles, Rhonchi, Decreased Bases Cardiology CV Exam: Regular, Murmur Gastrointestinal/Abdomen GI Exam: Soft, Non-Tender, Bowel Sounds Present Integumentary Skin Exam: Clear Extremeties Extremities Exam: Trace Edema Neurologic Neuro Exam: Alert Assessment/Plan Problem List: (1) Kidney transplant status, cadaveric Plan: he has serious infection Cryptococcus/AV Stenosis d/w patient need to treat 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 Centeno, patient and family stopped treatment patient refused treatment Hospice consulted stopped dialysis per patient request c/o pain in back MS 4 mg IV ordered hopefully transfer to hospice other comorbid condition is critical Aortic stenosis ESRD now on hemodialysis code status DNR per patient wishes I will sign off (2) DM (diabetes mellitus) Plan: Follow blood glucose (3) Aortic stenosis Plan: He has severe aortic stenosis, cardiology note reviewed. Not stable for workup. (4) Hypertension Plan: Monitor blood pressure (5) Pneumonia Plan: ID is following on Ceftriaxone and fluconazole and Doxycycline. Problem Qualifiers (1) Pneumonia: Qualified Code: J18.9 - Pneumonia of right lung due to infectious organism, unspecified part of lung Stacy Dias MD Nov 14, 2016 15:09
[2016-11-14] MEDS ORDERED: MORPHINE SULFATE 8 MG/ML INJ IV PUSH ONE (15:15)
[2016-11-14] MEDS ORDERED: HYDROmorphone HCL PF 1 MG/ML VIAL IV PUSH PRN ×2 (15:45)
[2016-11-14] MEDS ORDERED: HYDROmorphone HCL PF 1 MG/ML VIAL IV PUSH ONE (16:00)
--- NOTE | 2016-11-14 16:19 | HHI.HCPN ---
66-year-old male with a past medical history significant for renal failure. 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 Patient has history of aortic stenosis CHF. Patient had made a decision to transition to comfort measures only, not to continue Hemodialysis, patient and family has informed the medical team, including infectious disease and nephrology about decision. Palliative care was consulted to ease pts transition to hospice more efficiently and quickly. I spoke with patient, with / significant other at bedside. Patient appears to have capacity to make medical decisions, and able to relates that his kidneys "are shot, gone." He relates that he just wanted go home and peacefully. He wished to go home tonight. He was amenable for me to place hospice consult. He was amenable to comfort meds for pain, and anxiety. Patient and family appreciated visit. He signed a community DNR in my presences. case d/w with id and renal. hospice consult was placed. Adam Bales M.D., MD Nov 14, 2016 16:18
--- NOTE | 2016-11-14 16:32 | HHI.PR ---
Subjective Remarks seen with family at bedside seen by specialists this am and discussion with them- - refusing all teatments and hemodialysis seen by Hospice Objective Vitals Vital Signs Date Time Temp Pulse Resp B/P Pulse Ox O2 Delivery O2 Flow Rate FiO2 11/14/16 13:22 78 11/14/16 13:22 Simple Mask 8.00 11/14/16 12:27 97.8 73 19 113/58 95 11/14/16 09:55 63 22 112/63 98 11/14/16 09:40 96.4 68 22 130/66 98 11/14/16 09:25 69 22 123/65 98 11/14/16 08:55 97.0 71 20 105/44 96 11/14/16 08:01 97.6 80 19 122/58 91 11/14/16 04:00 98.8 74 20 125/60 93 11/14/16 00:00 99.1 71 20 131/64 91 11/13/16 20:45 Simple Mask 8.00 11/13/16 20:00 99.7 83 20 158/73 98 11/13/16 19:05 88 11/13/16 17:31 93 Simple Mask 8.00 11/13/16 17:27 98.0 92 20 154/75 93 11/13/16 17:00 Simple Mask 8.00 I/O 11/13/16 11/13/16 11/13/16 11/14/16 11/14/16 11/14/16 07:00 15:00 23:00 07:00 15:00 23:00 Intake Total 688 ml 0 ml 0 ml Output Total 150 ml 550 ml 4000 ml 0 ml Balance -150 ml 138 ml -4000 ml 0 ml Intake Oral 480 ml 0 ml IV Total 208 ml 0 ml 0 ml Output Urine Total 150 ml 550 ml 0 ml Hemodialysis 4000 ml # Bowel Movements 1 0 Result Diagram: 11/14/16 1403 11/14/16 1240 Imaging Vital Signs Date Time Temp Pulse Resp B/P Pulse Ox O2 Delivery O2 Flow Rate FiO2 11/14/16 13:22 78 11/14/16 13:22 Simple Mask 8.00 11/14/16 12:27 97.8 73 19 113/58 95 11/14/16 09:55 63 22 112/63 98 11/14/16 09:40 96.4 68 22 130/66 98 11/14/16 09:25 69 22 123/65 98 11/14/16 08:55 97.0 71 20 105/44 96 11/14/16 08:01 97.6 80 19 122/58 91 11/14/16 04:00 98.8 74 20 125/60 93 11/14/16 00:00 99.1 71 20 131/64 91 11/13/16 20:45 Simple Mask 8.00 11/13/16 20:00 99.7 83 20 158/73 98 11/13/16 19:05 88 11/13/16 17:31 93 Simple Mask 8.00 11/13/16 17:27 98.0 92 20 154/75 93 11/13/16 17:00 Simple Mask 8.00 Objective Remarks awake and alert, NAD anicteric lungs- decreased breath sounds,+ basal rales regular rhythm abdomen soft, good bowel sounds extremities + edema neuro exam- unremarkable A/P Problem List: (1) Sepsis ICD Code: A41.9 Status: Acute (2) Aortic stenosis ICD Code: I35.0 Status: Chronic (3) FRANTZ (acute kidney injury) ICD Code: N17.9 Status: Acute (4) Constipation ICD Code: K59.00 Status: Acute (5) IDDM (insulin dependent diabetes mellitus) ICD Code: E11.9 Status: Resolved (6) HAP (hospital-acquired pneumonia) ICD Code: J18.9 Status: Acute Assessment and Plan This is a 66-year-old male with history of congestive heart failure, cardiomyopathy, aortic stenosis, chronic kidney disease status post kidney transplant, diabetes mellitus, and recent fungemia, presenting back to the hospital with nausea, vomiting, constipation and cough. 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 tolerating current diet FRANTZ on CKD status post kidney transplant patient on mycophenolate and is on tacrolimus Hypertension Diabetes mellitus- good readings History of CHF, ACS, aortic stenosis EF 35% plan for TAVR as an outpatient DVT prophylaxis with heparin Patient tolerating PO Nephrology consulted, patient currently on dialysis. May need permanent dialysis.- seen byb Dr. Dias- refused further HD Appreciate GI consultation, status post EGD, report reviewed showed>> Gastroesophageal reflex, gastritis, gastroparesis, arousable esophagitis with stricture dilated 15 mm, GI recommended PPI intravenously twice a day, gastric emptying study and Reglan Continue iv antibiotic per ID doxycycline, Diflucan, ceftriaxone, if found to be cryptococcus pneumonia patient will need amphotericin B which will be high risk for the transplanted kidney Appreciate pulmonology input, plan for ABL Appreciate nephrology consultation, hold mycophenolate for now due to cryptococcus infection, patient may currently on hemodialysis. Resume Lasix. O2 DuoNeb Continue prednisone, tacrolimus discussed with family and patient at bedside DC all treatments comfort measures seen by Palliative care- Hospice service consulted DC today with home hospice Hien Adames MD Nov 14, 2016 16:32
--- NOTE | 2016-11-14 16:44 | HHI.DS ---
Discharge Summary Admission Date Nov 04, 2016 at 17:53 Discharge Date: Nov 14, 2016 Admitting Diagnosis pneumonia (1) Sepsis ICD Code: A41.9 (2) Aortic stenosis ICD Code: I35.0 (3) FRANTZ (acute kidney injury) ICD Code: N17.9 (4) Constipation ICD Code: K59.00 (5) IDDM (insulin dependent diabetes mellitus) ICD Code: E11.9 (6) HAP (hospital-acquired pneumonia) ICD Code: J18.9 Brief History - From Admission This is a 66-year-old male with history of chronic kidney disease status post transplant, congestive heart failure with ejection fraction of 35% and aortic stenosis, and recent fungemia and constipation ascending to the hospital with constipation, fever and cough. Of note, the patient was in the hospital from October 17 to October 29 for which patient was treated for fungemia and seen by infectious disease complicated by congestive heart failure exacerbation secondary to aortic stenosis and cardiomyopathy. Patient was discharged on October 29 with oral antifungals. However patient returned to the hospital for nausea and vomiting, for which patient was treated for constipation with an enema. Patient was discharged yesterday. However overnight, patient started having vomiting, with blood-tinged emesis after vomiting 10 times, associated with mid epigastric abdominal pain, constant, nonradiating, diffuse, associated with constipation. Last bowel movement was when patient was given enema 3 days ago. Patient has been passing gas, last was this morning. Of note, patient also noticed that his dry cough has been worsening associated with fever, chills and night sweats hence patient decided to go to the hospital. Patient denies any chest pain, mental status change, or urinary symptoms. CBC/BMP: 11/14/16 1403 11/14/16 1240 Significant Findings Laboratory Tests Test 11/12/16 11/13/16 11/13/16 11/14/16 07:05 14:30 21:36 09:10 Red Blood Count 4.17 MIL/MM3 3.97 MIL/MM3 4.48 MIL/MM3 (4.50-5.90) (4.50-5.90) (4.50-5.90) Hemoglobin 11.5 GM/DL 10.8 GM/DL 11.9 GM/DL (13.0-17.0) (13.0-17.0) (13.0-17.0) Hematocrit 34.4 % 33.1 % 37.6 % (39.0-51.0) (39.0-51.0) (39.0-51.0) Neutrophils (%) (Auto) 74.7 % 76.8 % (16.0-70.0) (16.0-70.0) Monocytes (%) (Auto) 10.7 % 8.3 % (0.0-8.0) (0.0-8.0) Lymphocytes # (Auto) 0.9 TH/MM3 0.9 TH/MM3 (1.0-4.8) (1.0-4.8) Sodium Level 131 MEQ/L (136-145) Chloride Level 96 MEQ/L (98-107) Blood Urea Nitrogen 57 MG/DL (7-18) Creatinine 3.21 MG/DL (0.60-1.30) Estimat Glomerular Filtration 20 ML/MIN (>89) Rate Random Glucose 121 MG/DL (74-106) White Blood Count 11.5 TH/MM3 (4.0-11.0) Mean Corpuscular Hemoglobin 26.5 PG (27.0-34.0) Mean Corpuscular Hemoglobin 31.6 % Concent (32.0-36.0) Prothrombin Time 13.1 SEC (9.8-11.6) Activated Partial 31.3 SEC Thromboplast Time (24.3-30.1) Pleural Fluid WBC 27 /MM3 (0-10) Pleural Fluid RBC 155 /MM3 (0-0) Test 11/14/16 11/14/16 12:40 14:03 Sodium Level 134 MEQ/L (136-145) Chloride Level 97 MEQ/L (98-107) Blood Urea Nitrogen 34 MG/DL (7-18) Creatinine 2.85 MG/DL (0.60-1.30) Estimat Glomerular Filtration 22 ML/MIN (>89) Rate Random Glucose 255 MG/DL (74-106) Red Blood Count 4.11 MIL/MM3 (4.50-5.90) Hemoglobin 11.3 GM/DL (13.0-17.0) Hematocrit 34.3 % (39.0-51.0) Neutrophils (%) (Auto) 84.5 % (16.0-70.0) Lymphocytes (%) (Auto) 7.9 % (9.0-44.0) Lymphocytes # (Auto) 0.6 TH/MM3 (1.0-4.8) Imaging Last Impressions Thoracentesis Ultrasound 11/14/16 0000 Signed Impressions: Service Date/Time: Monday, November 14, 2016 08:40 - CONCLUSION: Uncomplicated ultrasound guided thoracentesis. Dante Magallon MD Chest X-Ray 11/14/16 0000 Signed Impressions: Service Date/Time: Monday, November 14, 2016 09:34 - CONCLUSION: No pneumothorax following left thoracentesis. Shabbir Ramos Jr., MD Gastric Emptying Nuclear Medicine 11/08/16 0000 Signed Impressions: Service Date/Time: November 09:00 - CONCLUSION: 1. Delayed gastric emptying. 2. Improvement following IV Reglan. Ricardo Hansen MD Abdomen/Pelvis CT 11/04/16 1248 Signed Impressions: Service Date/Time: Friday, November 04, 2016 14:45 - CONCLUSION: 1. New large consolidation seen at the right hilar and infrahilar region. 2. Mild thickening of the distal esophagus. This is nonspecific. 3. Distention of the stomach. 4. Transplanted kidney in the right lower quadrant. There is a 2.9 cm cyst at the inferior transplanted kidney. 5. Very extensive atherosclerotic calcifications seen throughout the arterial system. Derrek Lopez MD PE at Discharge awake and alert, NAD anicteric lungs- decreased breath sounds,+ basal rales regular rhythm abdomen soft, good bowel sounds extremities + edema neuro exam- unremarkable Pt update on day of discharge awake and alert, appears comfortable refuses any further treatment Hospital Course This is a 66-year-old male with history of congestive heart failure, cardiomyopathy, aortic stenosis, chronic kidney disease status post kidney transplant, diabetes mellitus, and recent fungemia, presenting back to the hospital with nausea, vomiting, constipation and cough. 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 tolerating current diet FRANTZ on CKD status post kidney transplant patient on mycophenolate and is on tacrolimus Hypertension Diabetes mellitus- good readings History of CHF, ACS, aortic stenosis EF 35% plan for TAVR as an outpatient DVT prophylaxis with heparin Patient tolerating PO Nephrology consulted, patient currently on dialysis. May need permanent dialysis.- seen byb Dr. Dias- refused further HD Appreciate GI consultation, status post EGD, report reviewed showed>> Gastroesophageal reflex, gastritis, gastroparesis, arousable esophagitis with stricture dilated 15 mm, GI recommended PPI intravenously twice a day, gastric emptying study and Reglan Continue iv antibiotic per ID doxycycline, Diflucan, ceftriaxone, if found to be cryptococcus pneumonia patient will need amphotericin B which will be high risk for the transplanted kidney Appreciate pulmonology input, plan for ABL Appreciate nephrology consultation, hold mycophenolate for now due to cryptococcus infection, patient may currently on hemodialysis. Resume Lasix. O2 DuoNeb Continue prednisone, tacrolimus discussed with family and patient at bedside DC all treatments comfort measures seen by Palliative care- Hospice service consulted DC today with home hospice Pt Condition on Discharge: Guarded Discharge Disposition: Hospice/ Home Discharge Time: <= 30 minutes Discharge Instructions DIET: Follow Instructions for: Renal Failure Diet Speech Therapy-Diet Recommends: Regular Activities you can perform: Weight Bearing as [place] Activities to Avoid: Strenuous Activity Hien Adames MD Nov 14, 2016 16:44
--- NOTE | 2016-11-14 17:12 | HHI.PR ---
Subjective Remarks 66 YOWM with Renal transplant, CKD,CHF, On NC No Fever Cough, not able to expactorate More sob, on VM Had TC, 825 cc fluid removed Pt and Family decided for hospice Objective Vital Signs Vital Signs Date Time Temp Pulse Resp B/P Pulse Ox O2 Delivery O2 Flow Rate FiO2 11/14/16 16:01 97.9 79 18 141/71 95 11/14/16 13:22 78 11/14/16 13:22 Simple Mask 8.00 11/14/16 12:27 97.8 73 19 113/58 95 11/14/16 09:55 63 22 112/63 98 11/14/16 09:40 96.4 68 22 130/66 98 11/14/16 09:25 69 22 123/65 98 11/14/16 08:55 97.0 71 20 105/44 96 11/14/16 08:01 97.6 80 19 122/58 91 11/14/16 04:00 98.8 74 20 125/60 93 11/14/16 00:00 99.1 71 20 131/64 91 11/13/16 20:45 Simple Mask 8.00 11/13/16 20:00 99.7 83 20 158/73 98 11/13/16 19:05 88 11/13/16 17:31 93 Simple Mask 8.00 11/13/16 17:27 98.0 92 20 154/75 93 I/O 11/13/16 11/13/16 11/13/16 11/14/16 11/14/16 11/14/16 07:00 15:00 23:00 07:00 15:00 23:00 Intake Total 688 ml 0 ml 0 ml Output Total 150 ml 550 ml 4000 ml 0 ml Balance -150 ml 138 ml -4000 ml 0 ml Intake Oral 480 ml 0 ml IV Total 208 ml 0 ml 0 ml Output Urine Total 150 ml 550 ml 0 ml Hemodialysis 4000 ml # Bowel Movements 1 0 Result Diagram: 11/14/16 1403 11/14/16 1240 Objective Remarks GENERAL: MBMN, NAD SKIN: Warm and dry. HEAD: Normocephalic. EYES: No scleral icterus. No injection or drainage. NECK: Supple, trachea midline. No JVD or lymphadenopathy. CARDIOVASCULAR: Regular rate and rhythm without murmurs, gallops, or rubs. RESPIRATORY: Breath sounds equal bilaterally. No accessory muscle use. rales at right base GASTROINTESTINAL: Abdomen soft, non-tender, nondistended. MUSCULOSKELETAL: No cyanosis, or edema. BACK: Nontender without obvious deformity. No CVA tenderness. A/P Assessment and Plan Right lung Pneumonia Renal Transplant CKD CHF PLAN: Supplement 02 DC plans for home with Hospice Pravin Ward MD Nov 14, 2016 17:12
--- NOTE | 2016-11-14 18:22 | PD.CARD.PN ---
Subjective Subjective Remarks Events noted, spoke with the patient and his about their decision for hospice Objective Medications Current Medications Medications (Trade) Dose Ordered Sig/Rai Route Start Time Stop Time Status Last Admin (NS Flush) 2 ml UNSCH PRN IV FLUSH 11/04/16 18:15 11/08/16 05:46 (NS Flush) 2 ml BID IV FLUSH 11/04/16 21:00 11/14/16 08:15 (Tylenol) 650 mg Q4H PRN PO 11/04/16 18:15 (Zofran Inj) 4 mg Q6H PRN IV 11/04/16 18:15 11/13/16 04:20 (Robitussin Dm 200-20 Mg/10 ml Liq) 10 ml Q4H PRN PO 11/04/16 18:15 11/05/16 10:19 (Heparin Inj) 5,000 units Q8H SQ 11/04/16 22:00 Hold 11/06/16 05:12 (Coreen-Colace) 1 tab BID PO 11/04/16 21:00 11/14/16 08:12 (Dulcolax Supp) 10 mg DAILY PRN RECTAL 11/04/16 18:30 11/13/16 06:30 (Lactulose Liq) 30 ml DAILY PO 11/05/16 09:00 11/09/16 16:19 (Catapres) 0.1 mg DAILY PO 11/05/16 09:00 11/14/16 08:12 (Ferrous Sulfate) 325 mg DAILY PO 11/05/16 09:00 11/14/16 08:12 (Apresoline) 25 mg Q8HR PO 11/04/16 22:00 11/14/16 05:43 (Levemir Inj) 18 units HS SQ 11/04/16 21:00 11/13/16 22:53 (Imdur) 30 mg DAILY PO 11/05/16 09:00 11/14/16 08:12 (Trandate) 100 mg BID PO 11/04/16 21:00 11/14/16 08:12 (Ativan) 3 mg HS PO 11/04/16 21:00 11/13/16 22:55 (Procardia Xl) 90 mg HS PO 11/04/16 21:00 11/13/16 21:00 (Lyrica) 25 mg TID PO 11/05/16 09:00 11/14/16 12:13 (Sodium Bicarbonate) 650 mg DAILY PO 11/05/16 09:00 11/14/16 08:12 (Spiriva Inh) 18 mcg DAILY INH 11/05/16 09:00 11/14/16 08:14 Patient Own Medication PT OWN MED: (Linaclotide (Linze... DAILY PRN PO 11/04/16 19:00 Hold (Theragran) 1 tab DAILY PO 11/05/16 09:00 11/14/16 08:12 (Protonix Inj) 40 mg Q12H IV PUSH 11/07/16 12:00 11/14/16 12:14 (Ativan Inj) 0.5 mg Q12H PRN IV PUSH 11/07/16 14:00 11/13/16 09:27 (Reglan Inj) 5 mg Q8HR IV PUSH 11/07/16 16:00 11/14/16 05:43 (D50w (Vial) Inj) 25 ml UNSCH PRN IV PUSH 11/08/16 18:00 (Glucagon Inj) 1 mg UNSCH PRN OTHER 11/08/16 18:00 (Miralax) 17 gm DAILY PO 11/09/16 15:00 (Lasix) 80 mg DAILY@18 PO 11/11/16 18:00 11/14/16 08:12 (Dilaudid Pf Inj) 0.5 mg Q4H PRN IV PUSH 11/14/16 15:45 (Dilaudid Pf Inj) 1 mg Q4H PRN IV PUSH 11/14/16 15:45 Vital Signs / I&O Vital Signs Date Time Temp Pulse Resp B/P Pulse Ox O2 Delivery O2 Flow Rate FiO2 11/14/16 17:55 95 Nasal Cannula 6.00 11/14/16 16:01 97.9 79 18 141/71 95 11/14/16 13:22 78 11/14/16 13:22 Simple Mask 8.00 11/14/16 12:27 97.8 73 19 113/58 95 11/14/16 09:55 63 22 112/63 98 11/14/16 09:40 96.4 68 22 130/66 98 11/14/16 09:25 69 22 123/65 98 11/14/16 08:55 97.0 71 20 105/44 96 11/14/16 08:01 97.6 80 19 122/58 91 11/14/16 04:00 98.8 74 20 125/60 93 11/14/16 00:00 99.1 71 20 131/64 91 11/13/16 20:45 Simple Mask 8.00 11/13/16 20:00 99.7 83 20 158/73 98 11/13/16 19:05 88 I/O 11/13/16 11/13/16 11/13/16 11/14/16 11/14/16 11/14/16 07:00 15:00 23:00 07:00 15:00 23:00 Intake Total 688 ml 0 ml 0 ml 600 ml Output Total 150 ml 550 ml 4000 ml 0 ml Balance -150 ml 138 ml -4000 ml 0 ml 600 ml Intake Oral 480 ml 0 ml 600 ml IV Total 208 ml 0 ml 0 ml Output Urine Total 150 ml 550 ml 0 ml Hemodialysis 4000 ml # Voids 3 # Bowel Movements 1 0 1 Physical Exam GENERAL: NAD, AAOx3 SKIN: Warm and dry. HEAD: Atraumatic. Normocephalic. EYES: Pupils equal and round. No scleral icterus. No injection or drainage. ENT: No nasal bleeding or discharge. Mucous membranes pink and moist. NECK: Trachea midline. No JVD. CARDIOVASCULAR: Regular rate and rhythm. 3/6 crescendo-decrescendo systolic murmur RESPIRATORY: No accessory muscle use. Decreased breath sounds bilaterally GASTROINTESTINAL: Abdomen soft, non-tender, nondistended. Hepatic and splenic margins not palpable. MUSCULOSKELETAL: Extremities without clubbing, cyanosis, or edema. No obvious deformities. NEUROLOGICAL: Awake and alert. No obvious cranial nerve deficits. Motor grossly within normal limits. Five out of 5 muscle strength in the arms and legs. Normal speech. PSYCHIATRIC: Appropriate mood and affect; insight and judgment normal. Laboratory Laboratory Tests Test 11/13/16 11/14/16 11/14/16 11/14/16 21:36 09:10 12:40 14:03 White Blood Count 11.5 TH/MM3 7.8 TH/MM3 Red Blood Count 4.48 MIL/MM3 4.11 MIL/MM3 Hemoglobin 11.9 GM/DL 11.3 GM/DL Hematocrit 37.6 % 34.3 % Mean Corpuscular Volume 83.8 FL 83.3 FL Mean Corpuscular Hemoglobin 26.5 PG 27.4 PG Mean Corpuscular Hemoglobin 31.6 % 32.9 % Concent Red Cell Distribution Width 16.2 % 16.3 % Platelet Count 241 TH/MM3 230 TH/MM3 Mean Platelet Volume 8.6 FL 8.3 FL Prothrombin Time 13.1 SEC Prothromb Time International 1.2 RATIO Ratio Activated Partial 31.3 SEC Thromboplast Time Pleural Fluid pH 8.0 Pleural Fluid WBC 27 /MM3 Pleural Fluid RBC 155 /MM3 Pleural Fluid Neutrophils 12 % Pleural Fluid Lymphocytes 58 % Pleural Fluid Monocytes 15 % Pleural Fluid Histiocytes 15 % Pleural Fluid Comment Sodium Level 134 MEQ/L Potassium Level 4.5 MEQ/L Chloride Level 97 MEQ/L Carbon Dioxide Level 27.7 MEQ/L Anion Gap 9 MEQ/L Blood Urea Nitrogen 34 MG/DL Creatinine 2.85 MG/DL Estimat Glomerular Filtration 22 ML/MIN Rate Random Glucose 255 MG/DL Calcium Level 9.1 MG/DL Neutrophils (%) (Auto) 84.5 % Lymphocytes (%) (Auto) 7.9 % Monocytes (%) (Auto) 7.1 % Eosinophils (%) (Auto) 0.1 % Basophils (%) (Auto) 0.4 % Neutrophils # (Auto) 6.6 TH/MM3 Lymphocytes # (Auto) 0.6 TH/MM3 Monocytes # (Auto) 0.6 TH/MM3 Eosinophils # (Auto) 0.0 TH/MM3 Basophils # (Auto) 0.0 TH/MM3 CBC Comment DIFF FINAL Differential Comment Assessment and Plan Problem List: (1) Pneumonia (2) Sepsis (3) Hypoxia (4) ESRD (end stage renal disease) (5) Kidney transplant status, cadaveric (6) Fever (7) Shortness of breath (8) Aortic stenosis Assessment and Plan 1) Continued hypoxia, although better today Pulmonary edema looking 2) Severe by echo 3) EF 35-40% by echo 4) Home with hospice, does not want to continue HD for the rest of his life Problem Qualifiers (1) Pneumonia: Qualified Code: J18.9 - Pneumonia of right lung due to infectious organism, unspecified part of lung Dillon Valdez DO Nov 14, 2016 18:22
[2016-11-15 16:54] LABS: BODY FLUID LDH 62 U/L (()); BODY FLUID LDH SOURCE PLEURAL (())
== END 2016-11-14 19:09 | disposition hospice, home (50) | DRG 853 ==
LOC: NEPE 12:21 → NEDA 17:53 → N04A 18:55
PROVIDERS: ADMIT Internal Medicine; ATTEND Internal Medicine
PROC: 0D968ZZ Drainage of Stomach, Via Natural or Artificial Opening Endoscopic (ICD-10-PCS; 2016-11-07)
PROC: 0DB78ZX Excision of Stomach, Pylorus, Via Natural or Artificial Opening Endoscopic, Diagnostic (ICD-10-PCS; 2016-11-07)
PROC: 0D758ZZ Dilation of Esophagus, Via Natural or Artificial Opening Endoscopic (ICD-10-PCS; 2016-11-07)
PROC: 5A1D60Z (ICD-10-PCS; 2016-11-09)
PROC: 0W9B3ZX Drainage of Left Pleural Cavity, Percutaneous Approach, Diagnostic (ICD-10-PCS; principal; 2016-11-14)
DX: A41.9 Sepsis, unspecified organism (principal); J18.9 Pneumonia, unspecified organism; N17.0 Acute kidney failure with tubular necrosis; J96.01 Acute respiratory failure with hypoxia; I13.2 Hypertensive heart and chronic kidney disease with heart failure and with stage 5 chronic kidney disease, or end stage renal disease; J91.8 Pleural effusion in other conditions classified elsewhere; B45.0 Pulmonary cryptococcosis; N18.6 End stage renal disease; K92.0 Hematemesis; E87.2 Acidosis; T86.12 Kidney transplant failure; I42.9 Cardiomyopathy, unspecified; E87.1 Hypo-osmolality and hyponatremia; K22.10 Ulcer of esophagus without bleeding; J44.0 Chronic obstructive pulmonary disease with (acute) lower respiratory infection; I50.9 Heart failure, unspecified; K31.84 Gastroparesis; E11.22 Type 2 diabetes mellitus with diabetic chronic kidney disease; E11.42 Type 2 diabetes mellitus with diabetic polyneuropathy; E11.43 Type 2 diabetes mellitus with diabetic autonomic (poly)neuropathy; E11.51 Type 2 diabetes mellitus with diabetic peripheral angiopathy without gangrene; K21.9 Gastro-esophageal reflux disease without esophagitis; E11.319 Type 2 diabetes mellitus with unspecified diabetic retinopathy without macular edema; I35.0 Nonrheumatic aortic (valve) stenosis; I48.91 Unspecified atrial fibrillation; E78.5 Hyperlipidemia, unspecified; M19.90 Unspecified osteoarthritis, unspecified site; B19.20 Unspecified viral hepatitis C without hepatic coma; Y83.0 Surgical operation with transplant of whole organ as the cause of abnormal reaction of the patient, or of later complication, without mention of misadventure at the time of the procedure; Z87.891 Personal history of nicotine dependence; Z79.4 Long term (current) use of insulin; K59.00 Constipation, unspecified; Y95 Nosocomial condition; R13.10 Dysphagia, unspecified; K29.70 Gastritis, unspecified, without bleeding; K22.2 Esophageal obstruction; Z66 Do not resuscitate; Z51.5 Encounter for palliative care; D64.9 Anemia, unspecified; F41.9 Anxiety disorder, unspecified; K30 Functional dyspepsia; R19.7 Diarrhea, unspecified
CPT/HCPCS: 32555; 36591; 71010; 74176; 76937; 78264; 80048; 80053; 80074; 80197; 80202; 81001; 82150; 82947; 82948; 83605; 83615; 83690; 83735; 83880; 83986; 84100; 85025; 85027; 85048; 85610; 85730; 87015; 87040; 87070; 87102; 87116; 87205; 87206; 87449; 87493; 87556; 87798; 87899; 88305; 88312; 89051; 90935; 94640; 94664; 96374; 96375; A9541; C1729; C1769; C9113; J0456; J0692; J0696; J1170; J1450; J1644; J1815; J1940; J1956; J2060; J2270; J2370; J2405; J2543; J2765; J3370; J7030; J7040; J7050; J7507; J7512; J7517; Q4081